=== PATIENT | female | born 1945 | race Caucasian/White ===

== ENCOUNTER 2016-09-13 16:13 | Inpatient (IN) | payer MEDICARE, OTHER ==
--- NOTE | 2016-09-13 16:54 | ER Document Report ---
ED Medical Screen (RME) - General Stated Complaint: DIFFICULTY BREATHING Time seen by provider: 16:42 Mode of Arrival: Wheelchair Information source: Patient Notes: 51-year-old female presents to ED for shortness of breath off and on for years with a history of asthma. Her O2 sat is 81 2 L O2 nasal cannula in the ER working to breathe. She states she is very dizzy. She is in her own motorized wheelchair. They she has a history of asthma and was not able to lay down at all last night to sleep due to her shortness of breath. I have greeted and performed a rapid initial assessment of this patient. A comprehensive ED assessment and evaluation of the patient, analysis of test results and completion of medical decision making process will be conducted by an additional ED providers. TRAVEL OUTSIDE OF THE [place] IN LAST 30 DAYS: No - Related Data Allergies/Adverse Reactions: hydromorphone HCl [From Dilaudid] Allergy (Severe, Verified 01/26/15 09:53) Respiratory arrest codeine [Codeine] Allergy (Intermediate, Verified 01/11/15 08:23) Hallucinations Past Medical History - Social History Family history: CAD, DM, Hyperlipidemia, Hypertension - Past Medical History Cardiac Medical History: Reports: Hx Congestive Heart Failure, Hx Coronary Artery Disease, Hx Heart Attack - cardiac stents x 2, Hx Hypercholesterolemia, Hx Hypertension, Hx Heart Murmur Pulmonary Medical History: Reports: Hx Asthma, Hx Bronchitis, Hx COPD, Hx Sleep Apnea - Bipap Denies: Hx Pneumonia, Hx Tuberculosis Neurological Medical History: Denies: Hx Cerebrovascular Accident, Hx Seizures Endocrine Medical History: Reports: Hx Diabetes Mellitus Type 2 GI Medical History: Reports: Hx Gastroesophageal Reflux Disease, Hx Ulcer Musculoskeltal Medical History: Denies Hx Arthritis - generalized Psychiatric Medical History: Reports: Hx Depression Past Surgical History: Reports: Hx Appendectomy, Hx Hysterectomy, Hx Neurologic Surgery - spinal fusion, Hx Orthopedic Surgery - carpal tunnel, polio surgery to left leg. Denies: Hx Pacemaker - Immunizations Immunizations up to date: Yes Hx Diphtheria, Pertussis, Tetanus Vaccination: Yes
[2016-09-13] MEDS ORDERED: FUROSEMIDE INJ/PF 20 MG/2 ML SDV IV ONE (18:15)
[2016-09-13] MEDS ORDERED: IPRATROPIUM/ALBUTEROL 0.5-2.5 MG/3 ML AMPUL NEB ONE (18:15)
[2016-09-13 18:31] LABS: ABSOLUTE EOSINOPHILS # (AUTO) 0.1 10^3/uL (0.0-0.6); ABSOLUTE LYMPHOCYTES (AUTO) 0.7 10^3/uL (0.5-4.7); ABSOLUTE MONOCYTES (AUTO) 0.4 10^3/uL (0.1-1.4); ABSOLUTE NEUT (AUTO) 7.1 10^3/uL (1.7-8.2); BASOPHILS % (AUTO) 0.4 % (0-2); EOSINOPHILS % (AUTO) 1.4 % (0-6); HEMATOCRIT 30.8 % (36.0-47.0); HEMOGLOBIN 9.1 g/dL (12.0-15.5); HGB HCT DIFFERENCE -3.5; LYMPHOCYTES % (AUTO) 7.9 % (13-45); MEAN CORPUSCULAR HEMOGLOBIN 24.8 pg (27.0-33.4); MEAN CORPUSCULAR HGB CONC 29.7 g/dL (32.0-36.0); MEAN CORPUSCULAR VOLUME 84 fl (80-97); MONOCYTES % (AUTO) 5.2 % (3-13); RED BLOOD COUNT 3.68 10^6/uL (3.72-5.28); RED CELL DISTRIBUTION WIDTH 18.4 % (11.5-14.0); SEGMENTED NEUTROPHILS % (AUTO) 85.1 % (42-78); WHITE BLOOD COUNT 8.4 10^3/uL (4.0-10.5)
[2016-09-13 18:36] LABS: VENOUS BLOOD BASE EXCESS 15.6 mmol/L; VENOUS BLOOD HCO3 47.1 mmol/L (20-32); VENOUS BLOOD PH 7.24 (7.30-7.42)
[2016-09-13 18:42] LABS: ALANINE AMINOTRANSFERASE 27 U/L (9-52); ALBUMIN 3.5 g/dL (3.5-5.0); ALKALINE PHOSPHATASE 108 U/L (38-126); ASPARTATE AMINO TRANSFERASE 23 U/L (14-36); BILIRUBIN,TOTAL 0.7 mg/dL (0.2-1.3); BLOOD UREA NITROGEN 23 mg/dL (7-20); CALCIUM 9.3 mg/dL (8.4-10.2); CHLORIDE 87 mmol/L (98-107); CREATININE RESULT 0.67 mg/dL (0.52-1.25); GLUCOSE 81 mg/dL (75-110); POTASSIUM 4.8 mmol/L (3.6-5.0); SODIUM 139.7 mmol/L (137-145); TOTAL PROTEIN 6.9 g/dL (6.3-8.2)
[2016-09-13 18:43] LABS: VENOUS BLOOD PCO2 113.4 mmHg (35-63)
[2016-09-13 18:46] LABS: PROTHROMBIN TIME 13.1 SEC (11.4-15.4)
[2016-09-13 18:49] LABS: ANION GAP 12 (5-19)
[2016-09-13 18:53] LABS: CARBON DIOXIDE 41 mmol/L (22-30)
[2016-09-13 18:54] LABS: TROPONIN I 0.013 ng/mL
[2016-09-13] MEDS ORDERED: NITROGLYCERIN 2% OINTMENT 1 GM PACKET TP ONE (19:03)
--- NOTE | 2016-09-13 19:41 | ER Document Report ---
ED Respiratory Problem - General Mode of Arrival: Wheelchair Information source: Patient, Friend TRAVEL OUTSIDE OF THE [place] IN LAST 30 DAYS: No - HPI Patient complains to provider of: CHF, Cough, Short of breath Onset: Other - see HPI <TAWANNA LOVELACE - Last Filed: 09/13/16 22:11> <DAVINA CABRERA - Last Filed: 09/13/16 23:34> - General Chief Complaint: Breathing Difficulty Stated Complaint: DIFFICULTY BREATHING Notes: Patient is a 71-year-old female presenting to the emergency department with complaints of cough and difficulty breathing. Patient was recently treated for pneumonia with prednisone. Patient states she finished taking the prednisone but that her cough has returned and is persistent. Patient is on 2 L of oxygen at home and states that she upped her oxygen to 2.5 L at home. Patient states that she was unable to breathe efficiently when she was in supine position. Patient states she slept in her chair last night due to not being able to lay down. Patient has a history of asthma, CHF, and stents. Patient is also wheezing. (TAWANNA LOVELACE) - Related Data Allergies/Adverse Reactions: hydromorphone HCl [From Dilaudid] Allergy (Severe, Verified 09/13/16 21:43) Respiratory arrest codeine [Codeine] Allergy (Intermediate, Verified 09/13/16 21:43) Hallucinations Home Medications: Current Home Medications Aspirin [Aspirin EC] 81 mg PO DAILY 09/13/16 [History] Atorvastatin Calcium [Lipitor 20 mg Tablet] 20 mg PO QHS 09/13/16 [History] Budesonide/Formoterol Fumarate [Symbicort HFA 160-4.5 mcg Inhaler 6 gm] 2 puff IH BID 09/13/16 [History] Diclofenac Sodium [Voltaren] 1 gm TOP QIDP PRN 09/13/16 [History] Enalapril Maleate [Vasotec 5 mg Tablet] 5 mg PO DAILY 09/13/16 [History] Fentanyl [Duragesic 25 mcg/hr Transdermal Patch] 1 each TOP Q3DAYS 09/13/16 [ History] Fexofenadine HCl [Rin] 180 mg PO DAILY 09/13/16 [History] Furosemide [Furosemide] 40 mg PO BID 09/13/16 [History] Gemfibrozil [Lopid 600 mg Tablet] 600 mg PO BID 09/13/16 [History] Glipizide [Glipizide Xl] 10 mg PO QAM 09/13/16 [History] Guaifenesin [Mucinex] 600 mg PO DAILY 09/13/16 [History] Liothyronine Sodium [Cytomel] 10 mcg PO DAILY 09/13/16 [History] Metformin HCl [Glumetza ER 500 mg Tablet] 500 mg PO QAMPM 09/13/16 [History] Metoprolol Tartrate [Lopressor 50 mg Tablet] 50 mg PO Q12 09/13/16 [History] Montelukast Sodium [Singulair 10 mg Tablet] 10 mg PO DAILY 09/13/16 [History] Nitroglycerin [Nitro-Dur 10 mg (0.4MG/Hr) Transdermal Patch] 1 each TOP DAILY [History] Nitroglycerin [Nitrostat 0.4 mg (1/150 Gr) Tabs 25/Bottle] 1 tab SL Q5MP PRN [History] Omeprazole 40 mg PO QAM 09/13/16 [History] Oxycodone HCl [Oxycodone HCl 10 MG Tablet] 10 mg PO QIDP PRN 09/13/16 [History] Phenazopyridine HCl [Azo Urinary Pain Relief] 97.5 mg PO DAILYP PRN 09/13/16 [ History] Potassium Chloride [Klor-Con 10 Meq Tablet.sa] 30 meq PO DAILY 09/13/16 [History ] Pseudoephedrine HCl [Sudafed] 30 mg PO DAILY 09/13/16 [History] Past Medical History - General Information source: Patient - Social History Smoking Status: Smoker,Current Status Unk Cigarette use (# per day): No Chew tobacco use (# tins/day): No Frequency of alcohol use: None Drug Abuse: None Family History: DM Patient has suicidal ideation: No Patient has homicidal ideation: No - Past Medical History Cardiac Medical History: Reports: Hx Congestive Heart Failure, Hx Coronary Artery Disease, Hx Heart Attack - cardiac stents x 2, Hx Hypercholesterolemia, Hx Hypertension, Hx Heart Murmur Pulmonary Medical History: Reports: Hx Asthma, Hx Bronchitis, Hx COPD, Hx Sleep Apnea - Bipap Endocrine Medical History: Reports: Hx Diabetes Mellitus Type 2 GI Medical History: Reports: Hx Gastroesophageal Reflux Disease, Hx Ulcer Musculoskeltal Medical History: Reports Hx Arthritis - generalized Psychiatric Medical History: Reports: Hx Depression Past Surgical History: Reports: Hx Appendectomy, Hx Hysterectomy, Hx Neurologic Surgery - spinal fusion, Hx Orthopedic Surgery - carpal tunnel, polio surgery to left leg - Immunizations Immunizations up to date: Yes Hx Diphtheria, Pertussis, Tetanus Vaccination: Yes <BRITNEYBRANDYNTAWANNA - Last Filed: 09/13/16 22:11> Review of Systems - Review of Systems Constitutional: No symptoms reported EENT: No symptoms reported Cardiovascular: No symptoms reported Respiratory: See HPI, Cough, Short of breath, Wheezing Gastrointestinal: No symptoms reported Genitourinary: No symptoms reported Female Genitourinary: No symptoms reported Musculoskeletal: No symptoms reported Skin: No symptoms reported Hematologic/Lymphatic: No symptoms reported Neurological/Psychological: No symptoms reported -: Yes All other systems reviewed and negative <BRITNEYBRANDYNTAWANNA - Last Filed: 09/13/16 22:11> Physical Exam - Vital signs Interpretation: Normal - General General appearance: Appears well, Alert In distress: Mild - HEENT Head: Normocephalic, Atraumatic Eyes: Normal Pupils: PERRL Mucous membranes: Normal - Respiratory Respiratory status: No respiratory distress Chest status: Nontender Breath sounds: Wheezing - wheezing at the apices bilaterally, Other - Crackles from the mid lung blunt down Chest palpation: Normal - Cardiovascular Rhythm: Regular Heart sounds: Normal auscultation Murmur: No - Abdominal Inspection: Normal Distension: No distension Bowel sounds: Normal Tenderness: Nontender Organomegaly: No organomegaly - Back Back: Normal, Nontender - Extremities General upper extremity: Normal inspection, Normal ROM, Normal strength General lower extremity: Normal inspection, Normal ROM, Normal strength - Neurological Neuro grossly intact: Yes Cognition: Normal Orientation: AAOx4 Zaki Coma Scale Eye Opening: Spontaneous Zaki Coma Scale Verbal: Oriented [place] Coma Scale Motor: Obeys Commands Zaki Coma Scale Total: 15 Speech: Normal - Psychological Associated symptoms: Normal affect, Normal mood - Skin Skin Temperature: Warm Skin Moisture: Dry <TAWANNA LOVELACE - Last Filed: 09/13/16 22:11> Course - Laboratory Result Diagrams: 09/13/16 18:00 09/13/16 18:00 - Consults Dr. Guadalupe Time consulted: 19:39 <TAWANNA LOVELACE - Last Filed: 09/13/16 22:11> - Laboratory Result Diagrams: 09/13/16 18:00 09/13/16 18:00 <DAVINA CABRERA - Last Filed: 09/13/16 23:34> - Re-evaluation Re-evalutation: 09/13/16 Patient is a 71-year-old female who comes in stating that she's having difficulty breathing and orthopnea. Patient initially denied a history of heart failure but her family states that she does indeed have a history. Patient goes to Dr. Tellez. Patient has not had any chest pain. Chest x-ray, BNP , clinical exam, and fluid overload of her bilateral lower extremities are consistent with heart failure exacerbation. Patient has been given Lasix and nitroglycerin. She'll be placed on BiPAP due to her increase of CO2. Patient has been discussed with the hospitalist service and will be admitted to the [facility]. Stable time of admission. Patient agrees with this plan. (DAVINA CABRERA) - Vital Signs Vital signs: Temp Pulse Resp BP Pulse Ox 98.1 F 70 22 H 139/96 H 91 L 09/13/16 19:29 09/13/16 19:29 09/13/16 22:01 09/13/16 22:01 09/13/16 21:00 (TAWANNA LOVELACE) (DAVINA CABRERA) - Laboratory Laboratory results interpreted by me: 09/13/16 09/13/16 09/13/16 18:00 18:00 18:00 RBC 3.68 L Hgb 9.1 L Hct 30.8 L MCH 24.8 L MCHC 29.7 L RDW 18.4 H Seg Neutrophils % 85.1 H Lymphocytes % 7.9 L VBG pH 7.24 L VBG pCO2 113.4 H* VBG HCO3 47.1 H Chloride 87 L Carbon Dioxide 41 H* BUN 23 H NT-Pro-B Natriuret Pep 09/13/16 18:00 RBC Hgb Hct MCH MCHC RDW Seg Neutrophils % Lymphocytes % VBG pH VBG pCO2 VBG HCO3 Chloride Carbon Dioxide BUN NT-Pro-B Natriuret Pep 2840 H (TAWANNA LOVELACE) (DAVINA CABRERA) - Consults Dr. Guadalupe Reason for consultation: 09/13/16 19:[address] Guadalupe, patient will be admitted. (TAWANNA LOVELACE) Critical Care Note - Critical Care Note Total time excluding time spent on procedures (mins): 35 - evaluation and management of respiratory distress with multiple re-evaluations, treatment of congestive heart failure exacerbation, coordination of admission <DAVINA CABRERA - Last Filed: 09/13/16 23:34> Discharge <TAWANNA LOVELACE - Last Filed: 09/13/16 22:11> - Discharge Admitting Provider: Luisist Aura Guadalupe Unit Admitted: IMCU <DAVINA CABRERA - Last Filed: 09/13/16 23:34> - Discharge Clinical Impression: Hypoxia CHF exacerbation Qualifiers: Congestive heart failure type: unspecified congestive heart failure type Qualified Code(s): I50.9 - Heart failure, unspecified Condition: Stable Disposition: ADMITTED INPATIENT Scribe Attestation: 09/13/16 23:34 I personally performed the services described in the documentation, reviewed and edited the documentation which was dictated to the scribe in my presence, and it accurately records my words and actions. (DAVINA CABRERA) Scribe Documentation - Scribe Written by [employer]:: Tawanna Lovelace 09/13/16 21:30 acting as scribe for :: Indra <TAWANNA LOVELACE - Last Filed: 09/13/16 22:11>
--- NOTE | 2016-09-13 20:01 | EKG REPORT ---
SEVERITY:- ABNORMAL ECG - SINUS RHYTHM RIGHT BUNDLE BRANCH BLOCK PROBABLE LEFT VENTRICULAR HYPERTROPHY : Confirmed by: Pebbles Small MD 13-Sep-2016 20:00:38
[2016-09-13] MEDS ORDERED: INSULIN LISPRO 100 UNIT/ML 3 ML VIAL SUBCUT PRN (21:12)
[2016-09-13] MEDS ORDERED: GLUCAGON,HUMAN RECOMB 1 MG INJ IM PRN (21:12)
[2016-09-13] MEDS ORDERED: DEXTROSE 40% GEL 15 GM TUBE PO PRN ×2 (21:12)
[2016-09-13] MEDS ORDERED: DEXTROSE 50%-WATER 25 GM/50 ML DISP.SYRIN IV PRN (21:12)
[2016-09-13] MEDS ORDERED: ACETAMINOPHEN 325 MG TABLET PO PRN (21:35)
[2016-09-13] MEDS ORDERED: NORMAL SALINE 1000 ML 1,000 ML IV PRN (21:38)
[2016-09-13] MEDS ORDERED: IPRATROPIUM/ALBUTEROL 0.5-2.5 MG/3 ML AMPUL NEB PRN (22:00)
--- NOTE | 2016-09-13 22:00 | PDOC H&P ---
History of Present Illness Admission Date/PCP: 09/13/16 20:53 Manny Mayers for chronic anemia Patient complains of: Difficulty breathing History of Present Illness: ALBERTO DIAL is a 71 year old morbidly obese female, with underlying diastolic congestive heart failure, asthma, 24/7 home O2 dependent COPD, 2-1/2 L per nasal cannula, with patient herself denying underlying COPD, although diagnosis previously documented in prior records, obstructive sleep apnea, on home BiPAP, uncertain settings, type II diabetes mellitus, hypothyroidism, hyperlipidemia, nonambulatory for many years due at least in part to 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 Finished a 10 day course of oral antibiotics for suspected pneumonia 2 days ago. Tapering dose of steroids. Dry cough. Denies fever; states she has "chronic chills." Denies nausea vomiting, diarrhea or dysuria, chest or abdominal pain. Lasix reduced from 2 tablets in the morning and 1 in the evening to 1 tablet twice a day, 2 weeks ago. Typically compliant with her medications. Up-to-date with both flu and pneumonia vaccinations. Has been intubated 1 in the distant past for respiratory difficulty. Treatment so far has included an inch of nitro paste, along with 20 mg of IV Lasix, along with intravenous magnesium and breathing treatments. She is breathing much more comfortably now. Patient has been discussed with emergency room physician who evaluated the patient. . Laboratory results are listed in [employer] and are reviewed. X-ray summary results are listed below, with full report(s) reviewed. . EKG reviewed. And compared to tracing from 04/26/2013 Social history/personal habits: Single. 3 children. Lives with sister. Nonambulatory for many years. No use of alcohol tobacco or illicit drugs. Allergies/adverse reactions NKDA. Home medications are reviewed from a printed list provided by family and are to be reconciled by nursing staff in [facility]. Home medications initially autopopulated into [facility] may not accurately reflect patient's true medications, dosages, and/or frequencies. Compliant with medications. Unfortunately, patient uncertain of dosage of Lasix. Order has been entered for staff to contact family, outpatient physician, and/or pharmacy to more accurately determine this information REVIEW OF SYSTEMS: Constitutional: See history and present illness. Eyes: Wears glasses. ENT: States for "some time now,", she's had mild dysphagia with occasional aspiration. States the episodes are becoming more frequent with time. States she has not notified her primary care provider of such. No hearing problems or complaints. Pulmonary: See history and present illness. Cardiovascular: No current complaints, including chest pain. Gastrointestinal: No current complaints, including nausea or vomiting. Skin: No current complaints, including rashes. Hematologic: Easy bruising. Neurologic: Chronic left lower extremity weakness due to history of polio. Musculoskeletal: Joint pain from arthritis. Psychiatric: Anxiety depression; denies suicidal or homicidal ideation. Endocrine: No current complaints, including polyuria. Genitourinary: No current complaints, including dysuria. PHYSICAL EXAMINATION: 5 feet 4 inches tall. 145.2 kg. BMI 54.9 kg/m. Blood pressure 167/57. 91% saturation on 3 L oxygen per nasal cannula. Respirations are 23 and unlabored. Temperature 98.1. Morbidly obese chronically ill-appearing female who nevertheless appears approximately her stated age. Pleasant alert cooperative, though somewhat resistant to answering some questions. No obvious distress other than somewhat anxious. sister and a female friend are present; patient approves. Skin is warm and dry. No grossly obvious evidence of rash in areas of skin examined. No subcutaneous nodules palpated. ENT: Hearing grossly normal to normal conversation. Tongue midline on protrusion pink and slightly tacky. Eyes: No scleral icterus. Pupils equal and reactive to light at 4 mm. [place] conjunctivae. Neck is supple and nontender to gentle active range of motion and palpation. Midline trachea. No palpable thyroid nodule mass enlargement or tenderness. Lymphatic: No palpable cervical or clavicular nodes. Neck and lymphatic exams limited by patient body habitus. Psychiatric: Reasonable insight into acute and chronic medical issues. Oriented to time location and why here. Lungs: Auscultation reveals clear and equal breath sounds bilaterally. No use of accessory respiratory muscles. Cardiovascular: Heart regular rate and rhythm, without gallop murmur or rub. No carotid or abdominal aortic bruits. No right ankle or pedal edema; slight dorsal pedal edema on the left. Faintly palpable dorsalis pedis pulses. Abdomen: soft, quite obese, nontender with positive bowel sounds. Unable to adequately evaluate abdomen for masses or organomegaly due to body habitus. Extremities: Feet are warm and dry. No calf tenderness to compression. No grossly obvious visual evidence of calf swelling. Gentle manipulation of lower extremities fails to reveal any obvious evidence of injury or instability to knees hips or ankles. muscle wasting of the left lower extremity; affected by prior polio. Neurologic: Moves upper extremities grossly normally. Patellar reflexes absent. Absent Babinski. Light touch is intact at feet. Dorsiflexion and plantarflexion of right foot 5 / 5 and left foot 3 over 5. Past Medical History Cardiac Medical History: Reports: Congestive Heart Failure - Diastolic, Coronary Artery Disease, Myocardial Infarction - cardiac stents x 2, Hyperlipidema, Hypertension, Heart Murmur Denies: DVT, Pulmonary Embolism Pulmonary Medical History: Reports: Asthma, Bronchitis, Chronic Obstructive Pulmonary Disease (COPD), Sleep Apnea - Bipap Denies: Pneumonia, Tuberculosis EENT Medical History: Reports: Eyes - Glasses, Throat - Occasional dysphagia with aspiration. Denies: Ears Neurological Medical History: Reports: Other - Suspected history of TIAs. Left lower extremity weakness due to history of polio. Denies: Hemorrhagic CVA, Ischemic CVA, Seizures Endocrine Medical History: Reports: Diabetes Mellitus Type 2, Hypothyroidism Denies: Diabetes Mellitus Type 1, Hyperthyroidism Renal/ Medical History: Reports: None GI Medical History: Reports: Gastroesophageal Reflux Disease Denies: Cirrhosis, Hepatitis, Peptic Ulcer Disease Musculoskeltal Medical History: Reports: Arthritis - generalized Psychiatric Medical History: Reports: Depression Hematology: Reports: Anemia, Other - Easy bruising Infectious Medical History: Denies: Hepatitis B, Hepatitis C Past Surgical History Past Surgical History: Reports: Appendectomy, Hysterectomy, Orthopedic Surgery - carpal tunnel, polio surgery to left leg Denies: Pacemaker Social History Information Source: Patient, Emergency Med Personnel, [facility] Records Lives with: Family Smoking Status: Former Smoker Frequency of Alcohol Use: None Hx Recreational Drug Use: No Hx Prescription Drug Abuse: No - Advance Directive Resuscitation Status: Full Code Surrogate healthcare decision maker:: Her sister, present at her side. Family History Family History: DM Parental Family History Reviewed: Yes Children Family History Reviewed: Yes Sibling(s) Family History Reviewed.: Yes Medication/Allergy Home Medications: Aspirin [Aspirin EC] 81 mg PO DAILY 09/13/16 Atorvastatin Calcium [Lipitor 20 mg Tablet] 20 mg PO QHS 09/13/16 Budesonide/Formoterol Fumarate [Symbicort HFA 160-4.5 mcg Inhaler 6 gm] 2 puff IH BID 09/13/16 Diclofenac Sodium [Voltaren] 1 gm TOP QIDP PRN 09/13/16 Enalapril Maleate [Vasotec 5 mg Tablet] 5 mg PO DAILY 09/13/16 Fentanyl [Duragesic 25 mcg/hr Transdermal Patch] 1 each TOP Q3DAYS 09/13/16 Fexofenadine HCl [Rin] 180 mg PO DAILY 09/13/16 Furosemide [Furosemide] 40 mg PO BID 09/13/16 Gemfibrozil [Lopid 600 mg Tablet] 600 mg PO BID 09/13/16 Glipizide [Glipizide Xl] 10 mg PO QAM 09/13/16 Guaifenesin [Mucinex] 600 mg PO DAILY 09/13/16 Liothyronine Sodium [Cytomel] 10 mcg PO DAILY 09/13/16 Metformin HCl [Glumetza ER 500 mg Tablet] 500 mg PO QAMPM 09/13/16 Metoprolol Tartrate [Lopressor 50 mg Tablet] 50 mg PO Q12 09/13/16 Montelukast Sodium [Singulair 10 mg Tablet] 10 mg PO DAILY 09/13/16 Nitroglycerin [Nitro-Dur 10 mg (0.4MG/Hr) Transdermal Patch] 1 each TOP DAILY Nitroglycerin [Nitrostat 0.4 mg (1/150 Gr) Tabs 25/Bottle] 1 tab SL Q5MP PRN Omeprazole 40 mg PO QAM 09/13/16 Oxycodone HCl [Oxycodone HCl 10 MG Tablet] 10 mg PO QIDP PRN 09/13/16 Phenazopyridine HCl [Azo Urinary Pain Relief] 97.5 mg PO DAILYP PRN 09/13/16 Potassium Chloride [Klor-Con 10 Meq Tablet.sa] 30 meq PO DAILY 09/13/16 Pseudoephedrine HCl [Sudafed] 30 mg PO DAILY 09/13/16 Allergies/Adverse Reactions: hydromorphone HCl [From Dilaudid] Allergy (Severe, Verified 09/13/16 21:43) Respiratory arrest codeine [Codeine] Allergy (Intermediate, Verified 09/13/16 21:43) Hallucinations Physical Exam Vital Signs: Temp Pulse Resp BP Pulse Ox 98.1 F 70 20 162/108 H 96 09/13/16 19:29 09/13/16 19:29 09/13/16 20:32 09/13/16 20:53 09/13/16 20:01 Results Impressions: Chest X-Ray 09/13/16 00:00 IMPRESSION: Findings consistent with either a compensated cardiac status or mild degree of congestive failure Assessment & Plan - Diagnosis (1) Acute and chronic respiratory failure with hypercapnia Is this a current diagnosis for this admission?: YesPlan: BiPAP, with follow-up blood gas. Ice chips only at present time. I strongly encouraged patient to notify staff should patient feel that respiratory status is worsening. Patient is a full code. I have strongly encouraged patient not to get out of bed without notifying staff , , to avoid a fall with injury. Knee high SCDs for DVT prophylaxis, along with subcutaneous heparin. Impression and plans were discussed with patient, and sister, both of whom concur. Time spent in evaluation and management of patient: 71 minutes. (2) Anemia Qualifiers: Anemia type: unspecified type Qualified Code(s): D64.9 - Anemia, unspecified Is this a current diagnosis for this admission?: YesPlan: Follow-up CBC with differential. No need for transfusion at present time. (3) Acute on chronic diastolic (congestive) heart failure Is this a current diagnosis for this admission?: YesPlan: Patient will be admitted under CHF protocol. Serial [troponins]. Suspect this is due to recent decrease in her Lasix. IV Lasix initially. Resume home medications as appropriate once these have been reviewed. (4) Diabetes mellitus type 2 in obese Is this a current diagnosis for this admission?: YesPlan: Ice chips only the present time. Accu-Cheks with appropriate sliding scale coverage. Will hold metformin in case IV contrast study is required.Resume home medications as appropriate once these have been reviewed. (5) Hypothyroid Qualifiers: Hypothyroidism type: unspecified Qualified Code(s): E03.9 - Hypothyroidism, unspecified Is this a current diagnosis for this admission?: YesPlan: Resume home medications as appropriate once these have been reviewed. (6) Hyperlipidemia Qualifiers: Hyperlipidemia type: unspecified Qualified Code(s): E78.5 - Hyperlipidemia, unspecified Is this a current diagnosis for this admission?: YesPlan: Resume home medications as appropriate once these have been reviewed. (7) Dysphagia Qualifiers: Dysphagia type: unspecified Qualified Code(s): R13.10 - Dysphagia, unspecified Is this a current diagnosis for this admission?: YesPlan: Occasional mild dysphagia, w/aspiration, for "some time now." Speech therapy evaluation. (8) Hypomagnesemia Is this a current diagnosis for this admission?: YesPlan: Mag supplement. - Inpatient Certification Based on my medical assessment, after consideration of the patient's comorbidities, presenting symptoms, or acuity I expect that the services needed warrant INPATIENT care.: Yes I certify that my determination is in accordance with my understanding of Medicare's requirements for reasonable and necessary INPATIENT services [42 CFR 412.3e].: Yes Medical Necessity: Significant Comorbidiites Make Outpatient Treatment Too Risky , Need Close Monitoring Due to Risk of Patient Decompensation, Need For IV Fluids, Need for Nebulizer Therapy and Monitoring of Response, Risk of Complication if Not Cared For in Hospital, Risk of Diagnosis Which Will Require Inpatient Eval/Care/Monitoring Post Hospital Care: D/C or Transfer Summary
[2016-09-13 22:16] LABS: APPEARANCE,URINE CLOUDY; BILIRUBIN,URINE NEGATIVE (NEGATIVE); GLUCOSE, URINE NEGATIVE (NEGATIVE); KETONES,URINE NEGATIVE (NEGATIVE); LEUKOCYTE ESTERASE,URINE SMALL (NEGATIVE); NITRITE,URINE NEGATIVE (NEGATIVE); PROTEIN,URINE NEGATIVE (NEGATIVE); UROBILINOGEN,URINE NEGATIVE mg/dL (<2.0)
[2016-09-13] MEDS: DEXTROSE 50%-WATER 25 GM/50 ML DISP.SYRIN IV PRN (22:39)
[2016-09-13] MEDS: FUROSEMIDE INJ/PF 40 MG/4 ML SDV IV SCH (22:40)
[2016-09-13] MEDS: ATORVASTATIN CALCIUM 20 MG TABLET PO SCH (22:40)
[2016-09-13] MEDS: HEPARIN SOD (PORCINE) 5,000 UNIT/ML 1 ML SYRINGE SUBCUT SCH (22:41)
[2016-09-13] MEDS: METOPROLOL TARTRATE 50 MG TABLET PO SCH (22:54)
[2016-09-13 23:01] LABS: VENOUS BLOOD BASE EXCESS 16.7 mmol/L; VENOUS BLOOD PH 7.28 (7.30-7.42)
[2016-09-13 23:04] LABS: VENOUS BLOOD PCO2 103.5 mmHg (35-63)
[2016-09-14] MEDS ORDERED: MAGNESIUM SULFATE/D5W 1 G/100 ML RTUPB IV ONE (01:35)
[2016-09-14 05:22] LABS: ABSOLUTE EOSINOPHILS # (AUTO) 0.1 10^3/uL (0.0-0.6); ABSOLUTE LYMPHOCYTES (AUTO) 0.6 10^3/uL (0.5-4.7); ABSOLUTE MONOCYTES (AUTO) 0.5 10^3/uL (0.1-1.4); ABSOLUTE NEUT (AUTO) 6.2 10^3/uL (1.7-8.2); BASOPHILS % (AUTO) 0.5 % (0-2); EOSINOPHILS % (AUTO) 1.3 % (0-6); LYMPHOCYTES % (AUTO) 8.2 % (13-45); MEAN CORPUSCULAR HEMOGLOBIN 25.5 pg (27.0-33.4); MEAN CORPUSCULAR HGB CONC 31.1 g/dL (32.0-36.0); MEAN CORPUSCULAR VOLUME 82 fl (80-97); MONOCYTES % (AUTO) 6.8 % (3-13); RED BLOOD COUNT 3.54 10^6/uL (3.72-5.28); RED CELL DISTRIBUTION WIDTH 18.6 % (11.5-14.0); SEGMENTED NEUTROPHILS % (AUTO) 83.2 % (42-78); WHITE BLOOD COUNT 7.4 10^3/uL (4.0-10.5)
[2016-09-14 05:23] LABS: VENOUS BLOOD BASE EXCESS 19.7 mmol/L; VENOUS BLOOD HCO3 49.8 mmol/L (20-32); VENOUS BLOOD PH 7.31 (7.30-7.42)
[2016-09-14 05:24] LABS: VENOUS BLOOD PCO2 101.8 mmHg (35-63)
[2016-09-14] MEDS: OXYCODONE HCL IR 5 MG TABLET PO PRN (05:36)
[2016-09-14] MEDS: HEPARIN SOD (PORCINE) 5,000 UNIT/ML 1 ML SYRINGE SUBCUT SCH ×3 (05:37→23:39)
[2016-09-14] MEDS: DEXTROSE 50%-WATER 25 GM/50 ML DISP.SYRIN IV PRN ×2 (05:44→11:30)
[2016-09-14 05:49] LABS: BLOOD UREA NITROGEN 21 mg/dL (7-20); CALCIUM 8.9 mg/dL (8.4-10.2); CHLORIDE 87 mmol/L (98-107); CREATININE RESULT 0.63 mg/dL (0.52-1.25); GLUCOSE 55 mg/dL (75-110); SODIUM 139.9 mmol/L (137-145)
[2016-09-14 06:34] LABS: POTASSIUM 3.4 mmol/L (3.6-5.0)
[2016-09-14 06:35] LABS: ANION GAP 14 (5-19); CARBON DIOXIDE 39 mmol/L (22-30)
[2016-09-14] MEDS: DEXTROSE 5%-NORMAL SALINE 1,000 ML IV PRN ×2 (06:47→22:56)
[2016-09-14] MEDS: FUROSEMIDE INJ/PF 40 MG/4 ML SDV IV SCH ×2 (09:22→23:52)
[2016-09-14] MEDS: METOPROLOL TARTRATE 50 MG TABLET PO SCH ×2 (09:23→23:38)
[2016-09-14] MEDS: DOCUSATE SODIUM 100 MG CAPSULE PO SCH (09:24)
[2016-09-14] MEDS: ASPIRIN 81 MG TABLET, ENT COATED PO SCH (09:24)
[2016-09-14] MEDS: POTASSIUM CHLORIDE 10 MEQ TABLET.SA PO SCH (09:24)
[2016-09-14] MEDS: MONTELUKAST SODIUM 10 MG TABLET PO SCH (09:24)
[2016-09-14] MEDS: LORATADINE 10 MG TABLET PO SCH (09:24)
[2016-09-14] MEDS ORDERED: POTASSIUM CHLORIDE 10 MEQ TABLET.SA PO SCH (10:00)
[2016-09-14] MEDS ORDERED: FENTANYL 25 MCG/HR PATCH.TD72 TOP SCH (10:00)
[2016-09-14] MEDS ORDERED: (PENDING PHARMACY ID) (Liothyronine Sodium [Cytomel] 10 MCG) PO SCH (10:00)
[2016-09-14 11:12] LABS: VENOUS BLOOD BASE EXCESS 20.9 mmol/L; VENOUS BLOOD HCO3 50.8 mmol/L (20-32); VENOUS BLOOD PH 7.31 (7.30-7.42)
[2016-09-14 11:15] LABS: VENOUS BLOOD PCO2 104.4 mmHg (35-63)
[2016-09-14] MEDS: ENALAPRIL MALEATE 5 MG TABLET PO SCH (11:30)
[2016-09-14] MEDS: BUDESONIDE/FORMOTEROL 160-4.5 MCG 60 PUFF/6 GM MDI IH SCH ×2 (11:31→18:02)
[2016-09-14] MEDS ORDERED: NITROGLYCERIN 10 MG (0.4 MG/HR) PATCH.TD24 TOP SCH (17:15)
[2016-09-14] MEDS ORDERED: MAGNESIUM SULFATE/D5W 100 ML IV ONE (17:18)
--- NOTE | 2016-09-14 17:27 | PDOC PROGRESS REPORT ---
Subjective Progress Note for:: 09/14/16 Subjective:: The patient was seen earlier today on rounds. The patient states that she feels much more improved in comparison to when she came in. The patient states that she is no longer dyspneic and her only concern at this time is that she feels overall too weak to get to the bedside commode and asked for a urinary catheter. The patient denies any nausea, vomiting, diarrhea, dizziness, chest pain, heart palpitations, fevers, or chills. The patient has remained afebrile. Blood pressures have been in a good range. When prompted the patient voices no other concerns at this time. Review of systems: The rest of the review of systems is negative. Physical Exam Vital Signs: Temp Pulse Resp BP Pulse Ox 98.2 F 68 18 140/52 H 95 09/14/16 15:15 09/14/16 15:45 09/14/16 15:45 09/14/16 15:15 09/14/16 15:45 Intake & Output 09/12/16 09/13/16 09/14/16 23:59 23:59 23:59 Intake Total 375 Output Total 1300 Balance -925 Weight 123.9 kg General appearance: PRESENT: no acute distress, disheveled, morbidly obese Head exam: PRESENT: atraumatic, normocephalic Eye exam: PRESENT: conjunctiva pink, EOMI, PERRLA. ABSENT: scleral icterus Ear exam: PRESENT: normal external ear exam Mouth exam: PRESENT: moist, tongue midline Neck exam: ABSENT: carotid bruit, JVD, lymphadenopathy, thyromegaly Respiratory exam: PRESENT: symmetrical, wheezes. ABSENT: rales, rhonchi, tachypnea, unlabored Cardiovascular exam: PRESENT: RRR. ABSENT: diastolic murmur, rubs, systolic murmur Pulses: PRESENT: normal dorsalis pedis pul Vascular exam: PRESENT: normal capillary refill GI/Abdominal exam: PRESENT: normal bowel sounds, soft. ABSENT: distended, guarding, mass, organolmegaly, rebound, tenderness Rectal exam: PRESENT: deferred Extremities exam: PRESENT: full ROM. ABSENT: calf tenderness, clubbing, pedal edema Neurological exam: PRESENT: alert, awake, oriented to person, oriented to place , oriented to time, oriented to situation, CN II-XII grossly intact. ABSENT: motor sensory deficit Psychiatric exam: PRESENT: appropriate affect, normal mood. ABSENT: homicidal ideation, suicidal ideation Skin exam: PRESENT: dry, intact, warm. ABSENT: cyanosis, rash Results Laboratory Results: 09/14/16 05:07 09/14/16 05:07 09/13/16 09/13/16 09/14/16 21:56 22:45 00:40 WBC RBC Hgb Hct MCV MCH MCHC RDW Plt Count Seg Neutrophils % Lymphocytes % Monocytes % Eosinophils % Basophils % Absolute Neutrophils Absolute Lymphocytes Absolute Monocytes Absolute Eosinophils Absolute Basophils VBG pH 7.28 L VBG pCO2 103.5 H* VBG HCO3 47.0 H VBG Base Excess 16.7 Sodium Potassium Chloride Carbon Dioxide Anion Gap BUN Creatinine Est GFR ( Amer) Est GFR (Non-Af Amer) Glucose Calcium Magnesium 1.5 L Urine Color YELLOW Urine Appearance CLOUDY Urine pH 5.0 Ur Specific [place] 1.010 Urine Protein NEGATIVE Urine Glucose (UA) NEGATIVE Urine Ketones NEGATIVE Urine Blood NEGATIVE Urine Nitrite NEGATIVE Ur Leukocyte Esterase SMALL H Urine WBC (Auto) 3 Urine RBC (Auto) 6 09/14/16 09/14/16 09/14/16 05:07 05:07 05:07 WBC 7.4 RBC 3.54 L Hgb 9.0 L Hct 29.0 L MCV 82 MCH 25.5 L MCHC 31.1 L RDW 18.6 H Plt Count 343 Seg Neutrophils % 83.2 H Lymphocytes % 8.2 L Monocytes % 6.8 Eosinophils % 1.3 Basophils % 0.5 Absolute Neutrophils 6.2 Absolute Lymphocytes 0.6 Absolute Monocytes 0.5 Absolute Eosinophils 0.1 Absolute Basophils 0.0 VBG pH 7.31 VBG pCO2 101.8 H* VBG HCO3 49.8 H VBG Base Excess 19.7 Sodium 139.9 Potassium 3.4 L D Chloride 87 L Carbon Dioxide 39 H Anion Gap 14 BUN 21 H Creatinine 0.63 Est GFR ( Amer) > 60 Est GFR (Non-Af Amer) > 60 Glucose 55 L Calcium 8.9 Magnesium Urine Color Urine Appearance Urine pH Ur Specific [place] Urine Protein Urine Glucose (UA) Urine Ketones Urine Blood Urine Nitrite Ur Leukocyte Esterase Urine WBC (Auto) Urine RBC (Auto) 09/14/16 11:04 WBC RBC Hgb Hct MCV MCH MCHC RDW Plt Count Seg Neutrophils % Lymphocytes % Monocytes % Eosinophils % Basophils % Absolute Neutrophils Absolute Lymphocytes Absolute Monocytes Absolute Eosinophils Absolute Basophils VBG pH 7.31 VBG pCO2 104.4 H* VBG HCO3 50.8 H VBG Base Excess 20.9 Sodium Potassium Chloride Carbon Dioxide Anion Gap BUN Creatinine Est GFR ( Amer) Est GFR (Non-Af Amer) Glucose Calcium Magnesium Urine Color Urine Appearance Urine pH Ur Specific [place] Urine Protein Urine Glucose (UA) Urine Ketones Urine Blood Urine Nitrite Ur Leukocyte Esterase Urine WBC (Auto) Urine RBC (Auto) 09/14/16 09/14/16 00:40 05:07 Troponin I 0.017 0.019 Impressions: Chest X-Ray 09/13/16 00:00 IMPRESSION: Findings consistent with either a compensated cardiac status or mild degree of congestive failure Assessment & Plan - Diagnosis (1) Acute and chronic respiratory failure with hypercapnia Is this a current diagnosis for this admission?: YesPlan: Will increase settings on BiPAP. Most likely this is a component of obesity hypoventilation syndrome. The patient appears to have a history of hypercapnia looking back to 2012 (2) CHF exacerbation Qualifiers: Congestive heart failure type: diastolic Qualified Code(s): I50.33 - Acute on chronic diastolic (congestive) heart failure Is this a current diagnosis for this admission?: YesPlan: Continue to diurese will repeat chemistries in the a.m. and follow. Last echocardiogram on 07/22/2016 revealed a normal EF. (3) Hypomagnesemia Is this a current diagnosis for this admission?: YesPlan: Mild will supplement (4) Anemia Qualifiers: Anemia type: unspecified type Qualified Code(s): D64.9 - Anemia, unspecified Is this a current diagnosis for this admission?: YesPlan: Will obtain iron studies (5) Diabetes mellitus type 2 in obese Is this a current diagnosis for this admission?: Yes (6) Hyperlipidemia Qualifiers: Hyperlipidemia type: unspecified Qualified Code(s): E78.5 - Hyperlipidemia, unspecified Is this a current diagnosis for this admission?: Yes (7) Hypothyroid Qualifiers: Hypothyroidism type: unspecified Qualified Code(s): E03.9 - Hypothyroidism, unspecified Is this a current diagnosis for this admission?: Yes (8) Morbid obesity with BMI of 50.0-59.9, adult Is this a current diagnosis for this admission?: Yes - Time Time Spent with patient: on this visit including assessment, plan, physical examination, family meeting, and patient education is 35 minutes. Time Spent with patient: 35 or more minutes Medications reviewed and adjusted accordingly: Yes Anticipated discharge: Home Within: within 72 hours Disposition: The patient is a full code. Pending patient's symptomatology and diagnostic findings will reevaluate in the a.m.
[2016-09-14] MEDS: METHYLPREDNISOLONE INJ 125 MG/2 ML SDV IV SCH (23:34)
[2016-09-14] MEDS: ATORVASTATIN CALCIUM 20 MG TABLET PO SCH (23:38)
[2016-09-15 05:26] LABS: BLOOD UREA NITROGEN 12 mg/dL (7-20); CALCIUM 8.9 mg/dL (8.4-10.2); CHLORIDE 89 mmol/L (98-107); CREATININE RESULT 0.56 mg/dL (0.52-1.25); GLUCOSE 205 mg/dL (75-110); MAGNESIUM 1.9 mg/dL (1.6-2.3); POTASSIUM 3.8 mmol/L (3.6-5.0); SODIUM 142.8 mmol/L (137-145)
[2016-09-15 05:32] LABS: ANION GAP 15 (5-19); CARBON DIOXIDE 39 mmol/L (22-30)
[2016-09-15 05:46] LABS: HEMOGLOBIN 9.6 g/dL (12.0-15.5); HGB HCT DIFFERENCE -3.2; MEAN CORPUSCULAR HEMOGLOBIN 24.8 pg (27.0-33.4); MEAN CORPUSCULAR HGB CONC 29.9 g/dL (32.0-36.0); MEAN CORPUSCULAR VOLUME 83 fl (80-97); RED BLOOD COUNT 3.86 10^6/uL (3.72-5.28); RED CELL DISTRIBUTION WIDTH 18.6 % (11.5-14.0); WHITE BLOOD COUNT 6.9 10^3/uL (4.0-10.5)
[2016-09-15 05:47] LABS: VENOUS BLOOD BASE EXCESS 14.7 mmol/L; VENOUS BLOOD HCO3 42.5 mmol/L (20-32); VENOUS BLOOD PH 7.38 (7.30-7.42)
[2016-09-15 05:50] LABS: VENOUS BLOOD PCO2 73.1 mmHg (35-63)
[2016-09-15] MEDS: METHYLPREDNISOLONE INJ 125 MG/2 ML SDV IV SCH ×2 (06:44→13:45)
[2016-09-15] MEDS: OXYCODONE HCL IR 5 MG TABLET PO PRN (06:45)
[2016-09-15] MEDS: HEPARIN SOD (PORCINE) 5,000 UNIT/ML 1 ML SYRINGE SUBCUT SCH ×2 (06:49→13:30)
[2016-09-15] MEDS ORDERED: INSULIN LISPRO 100 UNIT/ML 3 ML VIAL SUBCUT PRN (07:52)
[2016-09-15] MEDS ORDERED: LANSOPRAZOLE 30 MG TAB.RAP.DR PO SCH (08:00)
[2016-09-15] MEDS: ENALAPRIL MALEATE 5 MG TABLET PO SCH (11:14)
[2016-09-15] MEDS: MONTELUKAST SODIUM 10 MG TABLET PO SCH (11:15)
[2016-09-15] MEDS: DOCUSATE SODIUM 100 MG CAPSULE PO SCH (11:15)
[2016-09-15] MEDS: METOPROLOL TARTRATE 50 MG TABLET PO SCH (11:15)
[2016-09-15] MEDS: ASPIRIN 81 MG TABLET, ENT COATED PO SCH (11:16)
[2016-09-15] MEDS: POTASSIUM CHLORIDE 10 MEQ TABLET.SA PO SCH (11:16)
[2016-09-15] MEDS: LORATADINE 10 MG TABLET PO SCH (11:16)
[2016-09-15] MEDS: BUDESONIDE/FORMOTEROL 160-4.5 MCG 60 PUFF/6 GM MDI IH SCH (11:17)
[2016-09-15 14:37] VITALS: BP 162/108
--- NOTE | 2016-09-15 17:02 | PDOC DISCHARGE SUMMARY ---
General - Admit/Disc Date/PCP Admission Date/Primary Care Provider: 09/13/16 21:[address] Bryant. Outpatient syrup machine laborer Dr. Tellez. Outpatient telephone station repairer: Dr. Mayers Discharge Date: 09/15/16 - Discharge Diagnosis (1) Acute and chronic respiratory failure with hypercapnia Is this a current diagnosis for this admission?: Yes (2) Acute diastolic (congestive) heart failure Is this a current diagnosis for this admission?: Yes (3) Hypomagnesemia Is this a current diagnosis for this admission?: Yes (4) Anemia Is this a current diagnosis for this admission?: Yes (5) Diabetes mellitus type 2 in obese Is this a current diagnosis for this admission?: Yes (6) Hyperlipidemia Is this a current diagnosis for this admission?: Yes (7) Hypothyroid Is this a current diagnosis for this admission?: Yes (8) Morbid obesity with BMI of 50.0-59.9, adult Is this a current diagnosis for this admission?: Yes - Additional Information Resuscitation Status: Do Not Resuscitate - DNR/DNI Discharge Diet: As Tolerated, Cardiac, Diabetic Discharge Activity: Activity As Tolerated Home Medications: Aspirin [Aspirin EC] 81 mg PO DAILY 09/13/16 Atorvastatin Calcium [Lipitor 20 mg Tablet] 20 mg PO QHS 09/13/16 Budesonide/Formoterol Fumarate [Symbicort HFA 160-4.5 mcg Inhaler 6 gm] 2 puff IH BID 09/13/16 Diclofenac Sodium [Voltaren] 1 gm TOP QIDP PRN 09/13/16 Enalapril Maleate [Vasotec 5 mg Tablet] 5 mg PO DAILY 09/13/16 Fentanyl [Duragesic 25 mcg/hr Transdermal Patch] 1 each TOP Q3DAYS 09/13/16 Fexofenadine HCl [Rin] 180 mg PO DAILY 09/13/16 Furosemide 40 mg PO BID 09/13/16 Gemfibrozil [Lopid 600 mg Tablet] 600 mg PO BID 09/13/16 Glipizide [Glipizide Xl] 10 mg PO QAM 09/13/16 Liothyronine Sodium [Cytomel] 10 mcg PO DAILY 09/13/16 Metformin HCl [Glumetza ER 500 mg Tablet] 500 mg PO QAMPM 09/13/16 Metoprolol Tartrate [Lopressor 50 mg Tablet] 50 mg PO Q12 09/13/16 Montelukast Sodium [Singulair 10 mg Tablet] 10 mg PO DAILY 09/13/16 Nitroglycerin [Nitro-Dur 10 mg (0.4MG/Hr) Transdermal Patch] 1 each TOP DAILY Nitroglycerin [Nitrostat 0.4 mg (1/150 Gr) Tabs 25/Bottle] 1 tab SL Q5MP PRN Omeprazole 40 mg PO QAM 09/13/16 Oxycodone HCl [Oxycodone HCl 10 MG Tablet] 10 mg PO QIDP PRN 09/13/16 Phenazopyridine HCl [Azo Urinary Pain Relief] 97.5 mg PO DAILYP PRN 09/13/16 Potassium Chloride [Klor-Con 10 Meq Tablet.sa] 30 meq PO DAILY 09/13/16 Levofloxacin [Levaquin 500 mg Tablet] 500 mg PO DAILY #5 tablet 09/15/16 Prednisone [Deltasone 10 mg Tablet] 10 mg PO ASDIR PRN #21 tablet 09/15/16 History of Present Illness Patient complains of: Difficulty breathing History of Present Illness: ALBERTO DIAL is a 71 year old morbidly obese female, with underlying diastolic congestive heart failure, asthma, / home O2 dependent COPD, 2-1/2 L per nasal cannula, with patient herself denying underlying COPD, although diagnosis previously documented in prior records, obstructive sleep apnea, on home BiPAP, uncertain settings, type II diabetes mellitus, hypothyroidism, hyperlipidemia, nonambulatory for many years due at least in part to 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 Finished a 10 day course of oral antibiotics for suspected pneumonia 2 days ago. Tapering dose of steroids. Dry cough. Denies fever; states she has "chronic chills." Denies nausea vomiting, diarrhea or dysuria, chest or abdominal pain. Lasix reduced from 2 tablets in the morning and 1 in the evening to 1 tablet twice a day, 2 weeks ago. Typically compliant with her medications. Has been intubated 1 in the distant past for respiratory difficulty. Hospital Course Hospital Course: The patient was admitted to [facility]. The patient was placed on scheduled nebs as well as PRN nebs, steroids, and supplemental oxygen. The patient's oxygen, steroids, and nebs were titrated and weaned. The patient is back to baseline and able to complete sentences. The patient was found to be profoundly hypercapnic which appears to be a chronic issue. The patient is supposed to be wearing a home BiPAP however the patient is been fully compliant with this. Patient's symptoms did resolve once the patient was placed on a BiPAP. The patient's PCO2 which was greater than 100 did come down to the 70 range which appears to be the patient's baseline. The patient was diuresed with IV diuretic and continued on home medications including aspirin, beta dimitrios, ARB. The patient had significant improvement in symptoms. Echocardiogram during previous admission revealed an ejection fraction of preservation. The patient received education and was instructed on dietary habits as well as daily weights. The patient will follow-up in outpatient basis. During the patient's stay the patient stated that she would like to be a DO NOT RESUSCITATE DO NOT INTUBATE. Portable DO NOT RESUSCITATE was provided. Physical Exam Vital Signs: Temp Pulse Resp BP Pulse Ox 98.5 F 67 22 H 162/108 H 100 09/15/16 14:33 09/15/16 14:33 09/15/16 14:33 09/15/16 14:33 09/15/16 14:33 Intake & Output 09/13/16 09/14/16 09/15/16 23:59 23:59 23:59 Intake Total 1196 710 Output Total 1300 1600 Balance -104 -890 Weight 123.9 kg 123.9 kg General appearance: PRESENT: no acute distress, disheveled, morbidly obese Head exam: PRESENT: atraumatic, normocephalic Eye exam: PRESENT: conjunctiva pink, EOMI, PERRLA. ABSENT: scleral icterus Ear exam: PRESENT: normal external ear exam Mouth exam: PRESENT: moist, tongue midline Neck exam: ABSENT: carotid bruit, JVD, lymphadenopathy, thyromegaly Respiratory exam: PRESENT: symmetrical. ABSENT: rales, rhonchi, tachypnea, unlabored, no wheezes Cardiovascular exam: PRESENT: RRR. ABSENT: diastolic murmur, rubs, systolic murmur Pulses: PRESENT: normal dorsalis pedis pul Vascular exam: PRESENT: normal capillary refill GI/Abdominal exam: PRESENT: normal bowel sounds, soft. ABSENT: distended, guarding, mass, organolmegaly, rebound, tenderness Rectal exam: PRESENT: deferred Extremities exam: PRESENT: full ROM. ABSENT: calf tenderness, clubbing, pedal edema Neurological exam: PRESENT: alert, awake, oriented to person, oriented to place , oriented to time, oriented to situation, CN II-XII grossly intact. ABSENT: motor sensory deficit Psychiatric exam: PRESENT: appropriate affect, normal mood. ABSENT: homicidal ideation, suicidal ideation Skin exam: PRESENT: dry, intact, warm. ABSENT: cyanosis, rash Results Laboratory Results: 09/15/16 05:27 09/15/16 04:59 09/14/16 09/14/16 09/15/16 05:07 05:07 04:59 WBC RBC Hgb Hct MCV MCH MCHC RDW Plt Count Retic Count (auto) 3.56 H Absolute Retic 0.125 H VBG pH VBG pCO2 VBG HCO3 VBG Base Excess Sodium 142.8 Potassium 3.8 Chloride 89 L Carbon Dioxide 39 H Anion Gap 15 BUN 12 Creatinine 0.56 Est GFR ( Amer) > 60 Est GFR (Non-Af Amer) > 60 Glucose 205 H Calcium 8.9 Magnesium 1.9 Iron 39 TIBC 381 % Saturation 10 Ferritin 207.00 Vitamin B12 686.0 Folate 8.30 Labs- Last Values WBC 6.9 10^3/uL (4.0-10.5) 09/15/16 05:27 RBC 3.86 10^6/uL (3.72-5.28) 09/15/16 05:27 Hgb 9.6 g/dL (12.0-15.5) L 09/15/16 05:27 Hct 32.0 % (36.0-47.0) L 09/15/16 05:27 MCV 83 fl (80-97) 09/15/16 05:27 MCH 24.8 pg (27.0-33.4) L 09/15/16 05:27 MCHC 29.9 g/dL (32.0-36.0) L 09/15/16 05:27 RDW 18.6 % (11.5-14.0) H 09/15/16 05:27 Plt Count 393 10^3/uL (150-450) 09/15/16 05:27 Seg Neutrophils % 83.2 % (42-78) H 09/14/16 05:07 Lymphocytes % 8.2 % (13-45) L 09/14/16 05:07 Monocytes % 6.8 % (3-13) 09/14/16 05:07 Eosinophils % 1.3 % (0-6) 09/14/16 05:07 Basophils % 0.5 % (0-2) 09/14/16 05:07 Absolute Neutrophils 6.2 10^3/uL (1.7-8.2) 09/14/16 05:07 Absolute Lymphocytes 0.6 10^3/uL (0.5-4.7) 09/14/16 05:07 Absolute Monocytes 0.5 10^3/uL (0.1-1.4) 09/14/16 05:07 Absolute Eosinophils 0.1 10^3/uL (0.0-0.6) 09/14/16 05:07 Absolute Basophils 0.0 10^3/uL (0.0-0.2) 09/14/16 05:07 Retic Count (auto) 3.56 % (0.66-2.85) H 09/14/16 05:07 Absolute Retic 0.125 10^6/uL (0.028-0.122) H 09/14/16 05:07 PT 13.1 SEC (11.4-15.4) 09/13/16 18:00 INR 0.97 09/13/16 18:00 VBG pH 7.38 (7.30-7.42) 09/15/16 05:27 VBG pCO2 73.1 mmHg (35-63) H* 09/15/16 05:27 VBG HCO3 42.5 mmol/L (20-32) H 09/15/16 05:27 VBG Base Excess 14.7 mmol/L 09/15/16 05:27 Sodium 142.8 mmol/L (137-145) 09/15/16 04:59 Potassium 3.8 mmol/L (3.6-5.0) 09/15/16 04:59 Chloride 89 mmol/L (98-107) L 09/15/16 04:59 Carbon Dioxide 39 mmol/L (22-30) H 09/15/16 04:59 Anion Gap 15 (5-19) 09/15/16 04:59 BUN 12 mg/dL (7-20) 09/15/16 04:59 Creatinine 0.56 mg/dL (0.52-1.25) 09/15/16 04:59 Est GFR ( Amer) > 60 (>60) 09/15/16 04:59 Est GFR (Non-Af Amer) > 60 (>60) 09/15/16 04:59 Glucose 205 mg/dL (75-110) H 09/15/16 04:59 POC Glucose 318 mg/dL (70-110) H 09/15/16 12:38 Lactic Acid 0.8 mmol/L (0.7-2.1) 09/13/16 18:00 Calcium 8.9 mg/dL (8.4-10.2) 09/15/16 04:59 Magnesium 1.9 mg/dL (1.6-2.3) 09/15/16 04:59 Iron 39 ug/dL (37-170) 09/14/16 05:07 TIBC 381 ug/dL (250-450) 09/14/16 05:07 % Saturation 10 % 09/14/16 05:07 Ferritin 207.00 ng/mL (11.1-264.0) 09/14/16 05:07 Total Bilirubin 0.7 mg/dL (0.2-1.3) 09/13/16 18:00 Direct Bilirubin 0.0 mg/dL (0.0-0.3) 09/13/16 18:00 AST 23 U/L (14-36) 09/13/16 18:00 ALT 27 U/L (9-52) 09/13/16 18:00 Alkaline Phosphatase 108 U/L (38-126) 09/13/16 18:00 Troponin I 0.019 ng/mL 09/14/16 05:07 NT-Pro-B Natriuret Pep 2840 pg/mL (5-900) H 09/13/16 18:00 Total Protein 6.9 g/dL (6.3-8.2) 09/13/16 18:00 Albumin 3.5 g/dL (3.5-5.0) 09/13/16 18:00 Vitamin B12 686.0 pg/mL (239-931) 09/14/16 05:07 Folate 8.30 ng/mL (>2.76) 09/14/16 05:07 Urine Color YELLOW 09/13/16 21:56 Urine Appearance CLOUDY 09/13/16 21:56 Urine pH 5.0 (5.0-9.0) 09/13/16 21:56 Ur Specific [place] 1.010 09/13/16 21:56 Urine Protein NEGATIVE mg/dL (NEGATIVE) 09/13/16 21:56 Urine Glucose (UA) NEGATIVE mg/dL (NEGATIVE) 09/13/16 21:56 Urine Ketones NEGATIVE mg/dL (NEGATIVE) 09/13/16 21:56 Urine Blood NEGATIVE (NEGATIVE) 09/13/16 21:56 Urine Nitrite NEGATIVE (NEGATIVE) 09/13/16 21:56 Urine Bilirubin NEGATIVE (NEGATIVE) 09/13/16 21:56 Urine Urobilinogen NEGATIVE mg/dL (<2.0) 09/13/16 21:56 Ur Leukocyte Esterase SMALL (NEGATIVE) H 09/13/16 21:56 Urine WBC (Auto) 3 /HPF 09/13/16 21:56 Urine RBC (Auto) 6 /HPF 09/13/16 21:56 U Hyaline Cast (Auto) 2 /LPF 09/13/16 21:56 Urine Bacteria (Auto) TRACE /HPF 09/13/16 21:56 Squamous Epi Cells Auto 8 /HPF 09/13/16 21:56 Urine Mucus (Auto) RARE /LPF 09/13/16 21:56 Urine Ascorbic Acid NEGATIVE (NEGATIVE) 09/13/16 21:56 Impressions: Chest X-Ray 09/13/16 00:00 IMPRESSION: Findings consistent with either a compensated cardiac status or mild degree of congestive failure Qualifiers PATEINT BEING DISCHARGED WITH ANY OF THE FOLLOWING DIAGNOSIS?: No Plan Discharge Plan: The patient will follow primary care provider within one week for hospital follow-up. Time Spent: Greater than 30 Minutes
== END 2016-09-15 15:45 | disposition home or self-care (01) | DRG 291 ==
LOC: ER 16:13 → EH 20:53 → UNDOADMIN 20:53 → EH 21:28 → 3W 09-14 02:16
PROVIDERS: ADMIT Family Medicine; ATTEND Family Medicine
PROC: 5A09457 Assistance with Respiratory Ventilation, 24-96 Consecutive Hours, Continuous Positive Airway Pressure (ICD-10-PCS; principal; 2016-09-13)
DX: I50.33 Acute on chronic diastolic (congestive) heart failure (principal); J96.22 Acute and chronic respiratory failure with hypercapnia; Z68.43 Body mass index [BMI] 50.0-59.9, adult; Z68.42 Body mass index [BMI] 45.0-49.9, adult; E83.42 Hypomagnesemia; D64.9 Anemia, unspecified; E11.9 Type 2 diabetes mellitus without complications; E66.01 Morbid (severe) obesity due to excess calories; E78.5 Hyperlipidemia, unspecified; E03.9 Hypothyroidism, unspecified; J45.909 Unspecified asthma, uncomplicated; J44.9 Chronic obstructive pulmonary disease, unspecified; G47.33 Obstructive sleep apnea (adult) (pediatric); M19.90 Unspecified osteoarthritis, unspecified site; F41.8 Other specified anxiety disorders; I11.0 Hypertensive heart disease with heart failure; I25.10 Atherosclerotic heart disease of native coronary artery without angina pectoris; I25.2 Old myocardial infarction; K21.9 Gastro-esophageal reflux disease without esophagitis; Z66 Do not resuscitate; Z88.6 Allergy status to analgesic agent; Z79.82 Long term (current) use of aspirin; Z79.899 Other long term (current) drug therapy; Z99.81 Dependence on supplemental oxygen; Z95.5 Presence of coronary angioplasty implant and graft; Z86.12 Personal history of poliomyelitis; Z90.710 Acquired absence of both cervix and uterus; Z87.891 Personal history of nicotine dependence; Z83.3 Family history of diabetes mellitus
CPT/HCPCS: 36415; 71010; 80048; 80053; 81001; 82607; 82728; 82746; 82803; 82962; 83540; 83550; 83605; 83735; 83880; 84466; 84484; 85025; 85027; 85045; 85610; 87040; 87086; 87088; 87186; 93005; 93010; 94640; 94660; 96374; 99291; J1644; J1815; J1940; J2930; J3475; J3490; J7030; J7620

== ENCOUNTER → 2017-02-14 | Outpatient (CLI) | payer MEDICARE, OTHER ==
--- NOTE | 2017-02-14 15:03 | RADIOLOGY REPORT (SQ) ---
EXAM DESCRIPTION: CHEST PA/LAT COMPLETED DATE/TIME: 02/14/2017 2:49 pm REASON FOR STUDY: SOB (R06.02) COMPARISON: 09/13/2016 EXAM PARAMETERS: NUMBER OF VIEWS: two views TECHNIQUE: Digital Frontal and Lateral radiographic views of the chest acquired. RADIATION DOSE: NA LIMITATIONS: none FINDINGS: LUNGS AND PLEURA: No opacities, masses or pneumothorax. No pleural effusion. MEDIASTINUM AND HILAR STRUCTURES: No masses or contour abnormalities. HEART AND VASCULAR STRUCTURES: Heart normal size. No evidence for failure. BONES: There is thoracic scoliosis with concavity toward the right. HARDWARE: None in the chest. OTHER: No other significant finding. IMPRESSION: NO SIGNIFICANT RADIOGRAPHIC FINDING IN THE CHEST. TECHNICAL DOCUMENTATION: JOB ID: [id number] [employer]- All Rights Reserved
--- NOTE | 2017-02-14 15:04 | RADIOLOGY REPORT (SQ) ---
EXAM DESCRIPTION: KNEE LEFT 3 VIEWS COMPLETED DATE/TIME: 02/14/2017 2:49 pm REASON FOR STUDY: FALL, INITIAL ENC (W19.XXXA) S99.911A UNSPECIFIED INJURY OF RIGHT ANKLE, INITIAL ENCOUNTE S99.912A UNSPECIFIED INJURY OF LEFT ANKLE, INITIAL ENCOUNTER W19.XXXA UNSPECIFIED FALL, IN ITIAL ENCOUNTER COMPARISON: None. NUMBER OF VIEWS: Two views. TECHNIQUE: AP and lateral radiographic images acquired of the left knee. LIMITATIONS: None. FINDINGS: MINERALIZATION: There is diffuse osteopenia. BONES: There are degenerative changes joint space narrowing in the patellofemoral compartment and med ial compartment. JOINT: No effusion. SOFT TISSUES: No soft tissue swelling. No radio-opaque foreign body. OTHER: No other significant finding. IMPRESSION: Osteoarthritic changes. Osteopenia. No acute fracture. TECHNICAL DOCUMENTATION: JOB ID: [id number] [employer]- All Rights Reserved
--- NOTE | 2017-02-14 15:06 | RADIOLOGY REPORT (SQ) ---
EXAM DESCRIPTION: ANKLE BILATERAL 3 VIEWS MIN COMPLETED DATE/TIME: 02/14/2017 2:49 pm REASON FOR STUDY: BILAT ANKLE INJURY (S99.911A, S99.912A) S99.911A UNSPECIFIED INJURY OF RIGHT ANKL E, INITIAL ENCOUNTE S99.912A UNSPECIFIED INJURY OF LEFT ANKLE, INITIAL ENCOUNTER W19.XXXA UNSPECIFI ED FALL, INITIAL ENCOUNTER COMPARISON: None. NUMBER OF VIEWS: Three views. TECHNIQUE: AP, lateral, and oblique radiographic images acquired of the right and left ankle. LIMITATIONS: None. FINDINGS: MINERALIZATION: There is diffuse osteopenia bilaterally. BONES: There are postsurgical changes in the left medial malleolus. There is no acute fracture or di slocation. JOINTS: No effusions. SOFT TISSUES: There is vascular calcification bilaterally. OTHER: No other significant finding. IMPRESSION: 1. Diffuse osteopenia. 2. Postsurgical changes in the left medial malleolus. 3. No acute findings on right or left. TECHNICAL DOCUMENTATION: JOB ID: [id number] [employer]- All Rights Reserved
--- NOTE | 2017-02-14 15:07 | RADIOLOGY REPORT (SQ) ---
EXAM DESCRIPTION: FACIAL BONES COMPLETED DATE/TIME: 02/14/2017 2:49 pm REASON FOR STUDY: FACIAL INJURY, INITIAL ENC (S09.93XA) S99.911A UNSPECIFIED INJURY OF RIGHT ANKLE, INITIAL ENCOUNTE S99.912A UNSPECIFIED INJURY OF LEFT ANKLE, INITIAL ENCOUNTER W19.XXXA UNSPECIFIED FALL, INITIAL ENCOUNTER COMPARISON: None. NUMBER OF VIEWS: Four view. TECHNIQUE: Images of the facial bones acquired. LIMITATIONS: None. FINDINGS: ORBITS: No fracture. No foreign body. SINUSES: No mucosal thickening. No air fluid levels. FACIAL BONES: No fracture. OTHER: No other significant finding. IMPRESSION: NO FOREIGN BODY OR FRACTURE OF THE FACIAL BONES. TECHNICAL DOCUMENTATION: JOB ID: [id number] [employer]- All Rights Reserved
--- NOTE | 2017-02-14 15:07 | RADIOLOGY REPORT (SQ) ---
EXAM DESCRIPTION: FOOT RIGHT COMPLETE COMPLETED DATE/TIME: 02/14/2017 2:49 pm REASON FOR STUDY: FOOT INJURY (S99.921A) S99.911A UNSPECIFIED INJURY OF RIGHT ANKLE, INITIAL ENCOUN TE S99.912A UNSPECIFIED INJURY OF LEFT ANKLE, INITIAL ENCOUNTER W19.XXXA UNSPECIFIED FALL, INITIAL ENCOUNTER COMPARISON: None. NUMBER OF VIEWS: Three views. TECHNIQUE: AP, lateral and oblique radiographic images acquired of the right foot. LIMITATIONS: None. FINDINGS: MINERALIZATION: There is osteopenia. BONES: There is an acute fracture of the proximal phalanx of the 2nd disease. Remainder of the skele amy structures are intact. JOINTS: No effusions. SOFT TISSUES: No soft tissue swelling. No foreign body. OTHER: No other significant finding. IMPRESSION: Osteopenia. Acute fracture of the proximal phalanx of the 2nd digit. TECHNICAL DOCUMENTATION: JOB ID: [id number] [employer]- All Rights Reserved
== END ==
LOC: RAD 13:27
PROVIDERS: ATTEND Family Medicine
DX: S99.911A Unspecified injury of right ankle, initial encounter (principal); S99.912A Unspecified injury of left ankle, initial encounter; S92.511A Displaced fracture of proximal phalanx of right lesser toe(s), initial encounter for closed fracture; S09.93XA Unspecified injury of face, initial encounter; W19.XXXA Unspecified fall, initial encounter; R06.02 Shortness of breath; M17.12 Unilateral primary osteoarthritis, left knee
CPT/HCPCS: 70150; 71020

== ENCOUNTER 2017-09-10 18:59 | Emergency (ER) | payer MEDICARE, OTHER ==
[2017-09-10] MEDS ORDERED: ASPIRIN 81 MG TABLET, CHEWABLE PO ONE (19:33)
[2017-09-10] MEDS ORDERED: NITROGLYCERIN 2% OINTMENT 1 GM PACKET TP ONE (19:54)
[2017-09-10] MEDS ORDERED: IPRATROPIUM/ALBUTEROL 0.5-2.5 MG/3 ML AMPUL NEB ONE (19:55)
--- NOTE | 2017-09-10 19:58 | ER Document Report ---
ED General - General Chief Complaint: Chest Pain > 30 Stated Complaint: CHEST PAIN Time Seen by Provider: 09/10/17 19:31 Mode of Arrival: Medic Information source: Patient Notes: This is a 72-year-old female with a history of morbid obesity, oxygen dependent COPD (6 L), coronary artery disease (stents with Plavix), hypertension, diabetes. The patient is brought into the emergency room by EMS because of shortness of breath, chills, dizziness. Patient states she was seen by Dr. Early's office and referred to the ER to make sure she does not have pneumonia. Patient denies fever. She denies any productive cough. Primary CARE physician: Dr. Early. Grizzlyman: Dr. Tellez TRAVEL OUTSIDE OF THE [place] IN LAST 30 DAYS: No - HPI Onset: Last week Onset/Duration: Gradual Quality of pain: No pain Severity: None Pain Level: Denies Associated symptoms: Chest pain, Nonproductive cough, Shortness of breath. denies: Fever Exacerbated by: Denies Relieved by: Denies Similar symptoms previously: Yes Recently seen / treated by doctor: Yes - Related Data Allergies/Adverse Reactions: hydromorphone HCl [From Dilaudid] Allergy (Severe, Verified 09/10/17 19:00) Respiratory arrest codeine [Codeine] Allergy (Intermediate, Verified 09/10/17 19:00) Hallucinations Past Medical History - General Information source: Patient - Social History Smoking Status: Never Smoker Cigarette use (# per day): No Chew tobacco use (# tins/day): No Frequency of alcohol use: None Drug Abuse: None Lives with: Family Family History: DM Patient has suicidal ideation: No Patient has homicidal ideation: No - Past Medical History Cardiac Medical History: Reports: Hx Congestive Heart Failure - Diastolic, Hx Coronary Artery Disease, Hx Heart Attack - cardiac stents x 2, Hx Hypercholesterolemia, Hx Hypertension, Hx Heart Murmur Denies: Hx DVT, Hx Pulmonary Embolism Pulmonary Medical History: Reports: Hx Asthma, Hx Bronchitis, Hx COPD, Hx Sleep Apnea - Bipap Denies: Hx Pneumonia, Hx Tuberculosis Neurological Medical History: Denies: Hx Cerebrovascular Accident, Hx Seizures Endocrine Medical History: Reports: Hx Diabetes Mellitus Type 2, Hx Hypothyroidism. Denies: Hx Diabetes Mellitus Type 1, Hx Hyperthyroidism Renal/ Medical History: Denies: Hx Peritoneal Dialysis GI Medical History: Reports: Hx Gastroesophageal Reflux Disease, Hx Ulcer. Denies: Hx Cirrhosis, Hx Hepatitis Musculoskeltal Medical History: Reports Hx Arthritis - generalized Psychiatric Medical History: Reports: Hx Depression Infectious Medical History: Denies: Hx Hepatitis Past Surgical History: Reports: Hx Appendectomy, Hx Hysterectomy, Hx Neurologic Surgery - spinal fusion, Hx Orthopedic Surgery - carpal tunnel, polio surgery to left leg. Denies: Hx Pacemaker - Immunizations Immunizations up to date: Yes Hx Diphtheria, Pertussis, Tetanus Vaccination: Yes Hx Pneumococcal Vaccination: 08/18/14 Review of Systems - Review of Systems Constitutional: denies: Chills, Fever EENT: No symptoms reported Cardiovascular: See HPI Respiratory: See HPI Gastrointestinal: No symptoms reported Genitourinary: No symptoms reported Female Genitourinary: No symptoms reported Musculoskeletal: No symptoms reported Skin: No symptoms reported Hematologic/Lymphatic: No symptoms reported Neurological/Psychological: No symptoms reported Physical Exam - Vital signs Vitals: Pulse Ox 99 09/10/17 19:17 Notes: Physical exam: GENERAL: 72-year-old female, alert and oriented 3. Blood pressure 195/66, heart rate 75, O2 sat 100% on 4 L, respiratory rate 25 HEAD: Atraumatic, normocephalic. EYES: Pupils equal round and reactive to light, extraocular movements intact, sclera anicteric, conjunctiva are normal. ENT: TMs normal, nares patent, oropharynx clear without exudates. Moist mucous membranes. NECK: Normal range of motion, supple without obvious mass or JVD. LUNGS: Bilateral wheezing HEART: Regular rate and rhythm with a 3/6 systolic murmur at the left lateral sternal border. ABDOMEN: Soft, normoactive bowel sounds. No tenderness to palpation. No guarding, no rebound. No masses appreciated. EXTREMITIES: Chronic lower extremity edema NEUROLOGICAL: Cranial nerves II through XII grossly intact. Normal speech, moving all extremities. PSYCH: Normal mood, normal affect. SKIN: Warm, Dry, normal turgor, no rashes or lesions noted. Course - Re-evaluation Re-evalutation: 09/10/17 23:42 Note: The patient was sent in today for concerns for an upper respiratory infection and possible pneumonia. The patient states she is breathing fairly good and does well with CPAP at night. She has not had fever. Her white count is normal. The chest x-ray shows some mild fluid at the right base. There is no obvious pneumonia. She does have a UTI and I have given her levofloxacin which would cover both urinary source of infection as well as pulmonary. Patient prefers to go home and at this point she appears stable. - Vital Signs Vital signs: Temp Pulse Resp BP Pulse Ox 17 145/60 H 97 09/10/17 21:00 09/11/17 01:00 09/11/17 00:00 - Laboratory Result Diagrams: 09/10/17 19:38 09/10/17 19:38 Laboratory results interpreted by me: 09/10/17 09/10/17 09/10/17 19:38 19:38 20:07 RBC 3.66 L Hgb 10.5 L Hct 33.5 L MCHC 31.3 L RDW 16.0 H Chloride 95 L Carbon Dioxide 40 H* BUN 24 H Urine Blood SMALL H Ur Leukocyte Esterase LARGE H - Diagnostic Test Radiology reviewed: Image reviewed, Reports reviewed - No obvious infiltrates. Small effusion at the left base. - EKG Interpretation by Me Rate: Normal Rhythm: NSR - EKG shows normal sinus rhythm with a ventricular rate of 72, right bundle branch block, left axis deviation, no significant change compared to an EKG performed on 06/22/2017 Discharge - Discharge Clinical Impression: UTI Condition: Stable Disposition: HOME, SELF-CARE Additional Instructions: As we discussed, the your urine test did show infection. A urine culture was sent. Your white count was normal at 8.9. Your electrolytes look pretty good. Chest x-ray showed no definite pneumonia but there was a small amount of fluid at the left base. Given this, I put you on an antibiotic that has good coverage for the urine infection but also has good coverage for potential lung infection as well. Continue with your CPAP/BiPAP at night. Continue current medicines Return to the emergency room for any worsening shortness of breath, difficulty breathing or concerns that she getting worse. Follow-up with Dr. Park's office. Prescriptions: Levofloxacin 500 mg PO DAILY #7 tablet Referrals: JEEVAN EARLY MD [Primary Care Provider] - Follow up in 3-5 days
[2017-09-10 20:01] LABS: ABSOLUTE BASOPHILS # (AUTO) 0.1 10^3/uL (0.0-0.2); ABSOLUTE EOSINOPHILS # (AUTO) 0.2 10^3/uL (0.0-0.6); ABSOLUTE LYMPHOCYTES (AUTO) 1.6 10^3/uL (0.5-4.7); ABSOLUTE MONOCYTES (AUTO) 0.6 10^3/uL (0.1-1.4); ABSOLUTE NEUT (AUTO) 6.4 10^3/uL (1.7-8.2); BASOPHILS % (AUTO) 0.8 % (0-2); EOSINOPHILS % (AUTO) 1.9 % (0-6); HEMATOCRIT 33.5 % (36.0-47.0); HEMOGLOBIN 10.5 g/dL (12.0-15.5); LYMPHOCYTES % (AUTO) 18.3 % (13-45); MEAN CORPUSCULAR HEMOGLOBIN 28.6 pg (27.0-33.4); MEAN CORPUSCULAR HGB CONC 31.3 g/dL (32.0-36.0); MEAN CORPUSCULAR VOLUME 92 fl (80-97); MONOCYTES % (AUTO) 6.6 % (3-13); PLATELET COUNT 391 10^3/uL (150-450); RED BLOOD COUNT 3.66 10^6/uL (3.72-5.28); SEGMENTED NEUTROPHILS % (AUTO) 72.4 % (42-78); TOTAL CELLS COUNTED % (AUTO) 100 %; WHITE BLOOD COUNT 8.9 10^3/uL (4.0-10.5)
[2017-09-10 20:03] LABS: INTERNATIONAL RATION (INR) 0.97; PROTHROMBIN TIME 13.6 SEC (11.4-15.4)
--- NOTE | 2017-09-10 20:14 | RADIOLOGY REPORT (SQ) ---
EXAM DESCRIPTION: CHEST SINGLE VIEW COMPLETED DATE/TIME: 09/10/2017 7:53 pm REASON FOR STUDY: sob COMPARISON: 06/22/2017 EXAM PARAMETERS: NUMBER OF VIEWS: One view. TECHNIQUE: Single frontal radiographic view of the chest acquired. RADIATION DOSE: NA LIMITATIONS: None. FINDINGS: LUNGS AND PLEURA: Increased opacity at the left costophrenic angle, possible airspace dise ase-effusion. Right lung appears clear. MEDIASTINUM AND HILAR STRUCTURES: Stable. HEART AND VASCULAR STRUCTURES: Stable. BONES: No acute findings. HARDWARE: None in the chest. OTHER: No other significant finding. IMPRESSION: Increased opacity at the left costophrenic angle, possible airspace disease-effusion. TECHNICAL DOCUMENTATION: JOB ID: [id number] [id number] [employer]- All Rights Reserved
[2017-09-10 20:27] LABS: CREATINE KINASE MB 1.48 ng/mL (<4.55); TROPONIN I 0.025 ng/mL
[2017-09-10 20:38] LABS: ALANINE AMINOTRANSFERASE 24 U/L (9-52); ALBUMIN 4.3 g/dL (3.5-5.0); ALKALINE PHOSPHATASE 97 U/L (38-126); ASPARTATE AMINO TRANSFERASE 30 U/L (14-36); BILIRUBIN,DIRECT 0.4 mg/dL (0.0-0.4); BILIRUBIN,TOTAL 0.6 mg/dL (0.2-1.3); BLOOD UREA NITROGEN 24 mg/dL (7-20); CALCIUM 9.5 mg/dL (8.4-10.2); CREATINE KINASE 44 U/L (30-135); GLUCOSE 99 mg/dL (75-110); TOTAL PROTEIN 7.9 g/dL (6.3-8.2)
[2017-09-10 20:49] LABS: APPEARANCE,URINE SLIGHTLY-CLOUDY; BILIRUBIN,URINE NEGATIVE (NEGATIVE); COLOR,URINE YELLOW; GLUCOSE, URINE NEGATIVE (NEGATIVE); KETONES,URINE NEGATIVE (NEGATIVE); LEUKOCYTE ESTERASE,URINE LARGE (NEGATIVE); NITRITE,URINE NEGATIVE (NEGATIVE); PROTEIN,URINE NEGATIVE (NEGATIVE); URINE SPECIFIC GRAVITY 1.009; UROBILINOGEN,URINE NEGATIVE mg/dL (<2.0)
[2017-09-10 20:50] LABS: CHLORIDE 95 mmol/L (98-107); POTASSIUM 4.3 mmol/L (3.6-5.0); SODIUM 144.5 mmol/L (137-145)
[2017-09-10 20:52] LABS: ANION GAP 10 (5-19)
[2017-09-10 20:55] LABS: CARBON DIOXIDE 40 mmol/L (22-30)
[2017-09-10] MEDS ORDERED: LEVOFLOXACIN 750 MG/D5W RTU 750 MG/150 ML RTUPB IV ONE (22:21)
[2017-09-11 02:35] VITALS: BP 145/60
--- NOTE | 2017-09-11 12:04 | EKG REPORT ---
SEVERITY:- ABNORMAL ECG - SINUS RHYTHM RBBB AND LAFB : Confirmed by: Odilon Beckwith 11-Sep-2017 12:04:00
--- NOTE | 2017-09-11 12:04 | EKG REPORT ---
SEVERITY:- ABNORMAL ECG - SINUS RHYTHM RBBB AND LAFB PROBABLE LVH WITH SECONDARY REPOL ABNRM : Confirmed by: Odilon Beckwith 11-Sep-2017 12:04:08
== END 2017-09-11 01:00 | disposition home or self-care (01) ==
LOC: ER 18:59
DX: N39.0 Urinary tract infection, site not specified (principal); R07.9 Chest pain, unspecified; E66.01 Morbid (severe) obesity due to excess calories; J44.9 Chronic obstructive pulmonary disease, unspecified; Z99.81 Dependence on supplemental oxygen; I25.10 Atherosclerotic heart disease of native coronary artery without angina pectoris; I10 Essential (primary) hypertension; E11.9 Type 2 diabetes mellitus without complications
CPT/HCPCS: 93005; 94640; 99285; 96365; 36415; 87086; 82553; 82550; 85025; 85610; 87088; 80053; 81001; 84484; 87186; 71045; 93010; A9270 ×2; J1956; J7620

== ENCOUNTER 2017-09-23 14:12 | Inpatient (IN) | payer MEDICARE, OTHER ==
[2017-09-23 15:16] LABS: HEMATOCRIT 26.8 % (36.0-47.0); HEMOGLOBIN 8.4 g/dL (12.0-15.5); MEAN CORPUSCULAR HEMOGLOBIN 28.1 pg (27.0-33.4); MEAN CORPUSCULAR HGB CONC 31.4 g/dL (32.0-36.0); MEAN CORPUSCULAR VOLUME 89 fl (80-97); PLATELET COUNT 275 10^3/uL (150-450); RED CELL DISTRIBUTION WIDTH 15.6 % (11.5-14.0); WHITE BLOOD COUNT 8.5 10^3/uL (4.0-10.5)
[2017-09-23 15:19] LABS: VENOUS BLOOD HCO3 53.5 mmol/L (20-32); VENOUS BLOOD PH 7.22 (7.30-7.42)
[2017-09-23 15:20] LABS: VENOUS BLOOD PCO2 134.4 mmHg (35-63)
--- NOTE | 2017-09-23 15:37 | ER Document Report ---
ED General - General Chief Complaint: Shortness Of Breath Stated Complaint: DIFFICULTY BREATHING Time Seen by Provider: 09/23/17 15:23 Mode of Arrival: Medic Information source: Patient TRAVEL OUTSIDE OF THE [place] IN LAST 30 DAYS: No - HPI Patient complains to provider of: Not feeling well Onset: Other - for a few weeks Associated symptoms: Nausea, Weakness Similar symptoms previously: Yes Recently seen / treated by doctor: No - Related Data Allergies/Adverse Reactions: hydromorphone HCl [From Dilaudid] Allergy (Severe, Verified 09/10/17 19:00) Respiratory arrest codeine [Codeine] Allergy (Intermediate, Verified 09/10/17 19:00) Hallucinations Past Medical History - General Information source: Patient, [facility] Records - Social History Smoking Status: Former Smoker Frequency of alcohol use: None Drug Abuse: None Lives with: Family Family History: DM Patient has suicidal ideation: No Patient has homicidal ideation: No - Medical History Notes: Pt. is DNR - Past Medical History Cardiac Medical History: Reports: Hx Congestive Heart Failure - Diastolic, Hx Coronary Artery Disease, Hx Heart Attack - cardiac stents x 2, Hx Hypercholesterolemia, Hx Hypertension, Hx Heart Murmur - aortic stenosis Denies: Hx DVT, Hx Pulmonary Embolism Pulmonary Medical History: Reports: Hx Asthma, Hx Bronchitis, Hx COPD, Hx Sleep Apnea - Bipap, Other - OHS Denies: Hx Pneumonia, Hx Tuberculosis Neurological Medical History: Denies: Hx Cerebrovascular Accident, Hx Seizures Endocrine Medical History: Reports: Hx Diabetes Mellitus Type 2, Hx Hypothyroidism. Denies: Hx Diabetes Mellitus Type 1, Hx Hyperthyroidism Renal/ Medical History: Reports: None. Denies: Hx Peritoneal Dialysis Malignancy Medical History: Reports: None GI Medical History: Reports: Hx Gastroesophageal Reflux Disease, Hx Ulcer. Denies: Hx Cirrhosis, Hx Hepatitis Musculoskeltal Medical History: Reports Hx Arthritis - generalized Skin Medical History: Reports Hx Cellulitis Psychiatric Medical History: Reports: Hx Depression Infectious Medical History: Reports: Other - polio. Denies: Hx Hepatitis Past Surgical History: Reports: Hx Appendectomy, Hx Colostomy - then reversed, Hx Hysterectomy, Hx Neurologic Surgery - spinal fusion, Hx Orthopedic Surgery - carpal tunnel, polio surgery to left leg. Denies: Hx Pacemaker - Immunizations Immunizations up to date: Yes Hx Diphtheria, Pertussis, Tetanus Vaccination: Yes Hx Pneumococcal Vaccination: 08/18/14 Review of Systems - Review of Systems Constitutional: Weakness, Weight gain EENT: No symptoms reported Cardiovascular: No symptoms reported Gastrointestinal: No symptoms reported Genitourinary: No symptoms reported Female Genitourinary: No symptoms reported Skin: Change in color - LLE Neurological/Psychological: Weakness Physical Exam - Vital signs Vitals: Resp BP 21 H 135/71 H 09/23/17 14:28 09/23/17 14:28 - Notes Notes: PHYSICAL EXAMINATION: GENERAL: Obese female in no acute distress sitting in bed HEAD: Atraumatic, normocephalic. EYES: Pupils equal round and reactive to light, extraocular movements intact, conjunctiva are normal. ENT: Nares patent, oropharynx clear without exudates. Moist mucous membranes. NECK: Normal range of motion, supple without lymphadenopathy LUNGS: Breath sounds clear to auscultation bilaterally and equal. No wheezes rales or rhonchi. HEART: Regular rate and rhythm to 6 holosystolic murmur ABDOMEN: Obese nontender, nondistended abdomen. No guarding, no rebound. No masses appreciated. Incisional scar right mid quadrant area Female : deferred Musculoskeletal: Left lower extremity is paralyzed. Below the knee is a circumferential 5 inch erythematous warm area. No open wounds. NEUROLOGICAL: Cranial nerves grossly intact. Normal speech. PSYCH: Normal mood, normal affect. SKIN: Warm, Dry, normal turgor, no lesions noted. Course - Re-evaluation Re-evalutation: 09/23/17 19:09 Labs- All tests 24 hr 09/23/17 09/23/17 09/23/17 14:45 14:45 14:45 WBC 8.5 RBC 3.00 L Hgb 8.4 L Hct 26.8 L MCV 89 MCH 28.1 MCHC 31.4 L RDW 15.6 H Plt Count 275 Total Counted 100 Seg Neutrophils % Not Reportable Seg Neuts % (Manual) 83 H Lymphocytes % Not Reportable Lymphocytes % (Manual) 5 L Monocytes % Not Reportable Monocytes % (Manual) 10 Eosinophils % Not Reportable Eosinophils % (Manual) 1 Basophils % Not Reportable Basophils % (Manual) 1 Absolute Neutrophils Not Reportable Abs Neuts (Manual) 7.1 Absolute Lymphocytes Not Reportable Abs Lymphs (Manual) 0.4 L Absolute Monocytes Not Reportable Abs Monocytes (Manual) 0.9 Absolute Eosinophils Not Reportable Absolute Eos (Manual) 0.1 Absolute Basophils Not Reportable Abs Basophils (Manual) 0.1 Toxic Granulation SLIGHT Platelet Comment ADEQUATE Anisocytosis SLIGHT Stomatocytes 1+ PT 13.2 INR 0.93 Carbonic Acid HCO3/H2CO3 Ratio ABG pH ABG pCO2 ABG pO2 ABG HCO3 ABG Total CO2 ABG O2 Saturation ABG Base Excess VBG pH VBG pCO2 VBG HCO3 VBG Base Excess FiO2 Sodium 139.9 Potassium 4.8 Chloride 89 L Carbon Dioxide 45 H* Anion Gap 6 BUN 21 H Creatinine 0.67 Est GFR ( Amer) > 60 Est GFR (Non-Af Amer) > 60 Glucose 172 H Lactic Acid Calcium 8.9 Total Bilirubin 0.3 Direct Bilirubin 0.2 Neonat Total Bilirubin Not Reportable Neonat Direct Bilirubin Not Reportable Neonat Indirect Bili Not Reportable AST 23 ALT 22 Alkaline Phosphatase 72 Total Protein 6.1 L Albumin 3.7 Urine Color Urine Appearance Urine pH Ur Specific [place] Urine Protein Urine Glucose (UA) Urine Ketones Urine Blood Urine Nitrite Urine Bilirubin Urine Urobilinogen Ur Leukocyte Esterase Urine WBC (Auto) Urine RBC (Auto) Squamous Epi Cells Auto Urine Mucus (Auto) Urine Ascorbic Acid 09/23/17 09/23/17 09/23/17 14:45 14:45 16:08 WBC RBC Hgb Hct MCV MCH MCHC RDW Plt Count Total Counted Seg Neutrophils % Seg Neuts % (Manual) Lymphocytes % Lymphocytes % (Manual) Monocytes % Monocytes % (Manual) Eosinophils % Eosinophils % (Manual) Basophils % Basophils % (Manual) Absolute Neutrophils Abs Neuts (Manual) Absolute Lymphocytes Abs Lymphs (Manual) Absolute Monocytes Abs Monocytes (Manual) Absolute Eosinophils Absolute Eos (Manual) Absolute Basophils Abs Basophils (Manual) Toxic Granulation Platelet Comment Anisocytosis Stomatocytes PT INR Carbonic Acid HCO3/H2CO3 Ratio ABG pH ABG pCO2 ABG pO2 ABG HCO3 ABG Total CO2 ABG O2 Saturation ABG Base Excess VBG pH 7.22 L VBG pCO2 134.4 H* VBG HCO3 53.5 H VBG Base Excess 23.0 FiO2 Sodium Potassium Chloride Carbon Dioxide Anion Gap BUN Creatinine Est GFR ( Amer) Est GFR (Non-Af Amer) Glucose Lactic Acid 0.8 Calcium Total Bilirubin Direct Bilirubin Neonat Total Bilirubin Neonat Direct Bilirubin Neonat Indirect Bili AST ALT Alkaline Phosphatase Total Protein Albumin Urine Color YELLOW Urine Appearance CLEAR Urine pH 5.0 Ur Specific [place] 1.012 Urine Protein NEGATIVE Urine Glucose (UA) NEGATIVE Urine Ketones NEGATIVE Urine Blood NEGATIVE Urine Nitrite NEGATIVE Urine Bilirubin NEGATIVE Urine Urobilinogen NEGATIVE Ur Leukocyte Esterase NEGATIVE Urine WBC (Auto) 1 Urine RBC (Auto) 1 Squamous Epi Cells Auto 1 Urine Mucus (Auto) RARE Urine Ascorbic Acid NEGATIVE 09/23/17 17:01 WBC RBC Hgb Hct MCV MCH MCHC RDW Plt Count Total Counted Seg Neutrophils % Seg Neuts % (Manual) Lymphocytes % Lymphocytes % (Manual) Monocytes % Monocytes % (Manual) Eosinophils % Eosinophils % (Manual) Basophils % Basophils % (Manual) Absolute Neutrophils Abs Neuts (Manual) Absolute Lymphocytes Abs Lymphs (Manual) Absolute Monocytes Abs Monocytes (Manual) Absolute Eosinophils Absolute Eos (Manual) Absolute Basophils Abs Basophils (Manual) Toxic Granulation Platelet Comment Anisocytosis Stomatocytes PT INR Carbonic Acid 2.95 H HCO3/H2CO3 Ratio 16:1 ABG pH 7.31 L ABG pCO2 98.1 H* ABG pO2 71.2 L ABG HCO3 47.7 H ABG Total CO2 50.7 H ABG O2 Saturation 91.3 L ABG Base Excess 18.7 VBG pH VBG pCO2 VBG HCO3 VBG Base Excess FiO2 40% Sodium Potassium Chloride Carbon Dioxide Anion Gap BUN Creatinine Est GFR ( Amer) Est GFR (Non-Af Amer) Glucose Lactic Acid Calcium Total Bilirubin Direct Bilirubin Neonat Total Bilirubin Neonat Direct Bilirubin Neonat Indirect Bili AST ALT Alkaline Phosphatase Total Protein Albumin Urine Color Urine Appearance Urine pH Ur Specific [place] Urine Protein Urine Glucose (UA) Urine Ketones Urine Blood Urine Nitrite Urine Bilirubin Urine Urobilinogen Ur Leukocyte Esterase Urine WBC (Auto) Urine RBC (Auto) Squamous Epi Cells Auto Urine Mucus (Auto) Urine Ascorbic Acid 09/23/17 19:09 Chest X-Ray 09/23/17 14:16 IMPRESSION: Since the previous chest x-ray 09/10/2017 there has been a significant increase in diffuse infiltrate on the right and further increasing infiltrate and possible consolidation left lower lung zone. - Vital Signs Vital signs: Temp Pulse Resp BP Pulse Ox 97.7 F 88 12 127/78 H 99 09/23/17 17:30 09/23/17 17:30 09/23/17 17:30 09/23/17 17:30 09/23/17 17:30 - Laboratory Result Diagrams: 09/23/17 14:45 09/23/17 14:45 Laboratory results interpreted by me: 09/23/17 09/23/17 09/23/17 14:45 14:45 14:45 RBC 3.00 L Hgb 8.4 L Hct 26.8 L MCHC 31.4 L RDW 15.6 H Seg Neuts % (Manual) 83 H Lymphocytes % (Manual) 5 L Abs Lymphs (Manual) 0.4 L Carbonic Acid ABG pH ABG pCO2 ABG pO2 ABG HCO3 ABG Total CO2 ABG O2 Saturation VBG pH 7.22 L VBG pCO2 134.4 H* VBG HCO3 53.5 H Chloride 89 L Carbon Dioxide 45 H* BUN 21 H Glucose 172 H Total Protein 6.1 L 09/23/17 17:01 RBC Hgb Hct MCHC RDW Seg Neuts % (Manual) Lymphocytes % (Manual) Abs Lymphs (Manual) Carbonic Acid 2.95 H ABG pH 7.31 L ABG pCO2 98.1 H* ABG pO2 71.2 L ABG HCO3 47.7 H ABG Total CO2 50.7 H ABG O2 Saturation 91.3 L VBG pH VBG pCO2 VBG HCO3 Chloride Carbon Dioxide BUN Glucose Total Protein - EKG Interpretation by Ri EKG shows normal: Sinus rhythm - [address] [place]/QRS: RBBB, LAHB/LAFB When compared to previous EKG there are: No significant change Discharge - Discharge Clinical Impression: Obesity hypoventilation syndrome, Morbid obesity with BMI of 50.0-59.9, adult, Left leg cellulitis, DNR (do not resuscitate), Anemia Disposition: ADMITTED INPATIENT Admitting Provider: Hospitalist - Unit Admitted: Telemetry - Dr. Mead
[2017-09-23 15:40] LABS: INTERNATIONAL RATION (INR) 0.93; PROTHROMBIN TIME 13.2 SEC (11.4-15.4)
[2017-09-23 15:41] LABS: ALANINE AMINOTRANSFERASE 22 U/L (9-52); ALBUMIN 3.7 g/dL (3.5-5.0); ALKALINE PHOSPHATASE 72 U/L (38-126); ASPARTATE AMINO TRANSFERASE 23 U/L (14-36); BILIRUBIN,DIRECT 0.2 mg/dL (0.0-0.4); BILIRUBIN,TOTAL 0.3 mg/dL (0.2-1.3); BLOOD UREA NITROGEN 21 mg/dL (7-20); CALCIUM 8.9 mg/dL (8.4-10.2); CHLORIDE 89 mmol/L (98-107); GLUCOSE 172 mg/dL (75-110); POTASSIUM 4.8 mmol/L (3.6-5.0); SODIUM 139.9 mmol/L (137-145); TOTAL PROTEIN 6.1 g/dL (6.3-8.2)
[2017-09-23] MEDS ORDERED: CEFTRIAXONE INJ 1000 MG VIAL IV ONE ×2 (15:44→17:29)
--- NOTE | 2017-09-23 15:49 | RADIOLOGY REPORT (SQ) ---
EXAM DESCRIPTION: CHEST SINGLE VIEW COMPLETED DATE/TIME: 09/23/2017 3:39 pm REASON FOR STUDY: bed 8 sepsis protocol COMPARISON: 09/10/2017 EXAM PARAMETERS: NUMBER OF VIEWS: One view. TECHNIQUE: Single frontal radiographic view of the chest acquired. RADIATION DOSE: NA LIMITATIONS: None. FINDINGS: Diffuse infiltrate right lung. Increasing infiltrate/consolidation left lower lung zone. LUNGS AND PLEURA: No opacities, masses or pneumothorax. No pleural effusion. MEDIASTINUM AND HILAR STRUCTURES: No masses. Contour normal. HEART AND VASCULAR STRUCTURES: Heart normal in size. Normal vasculature. BONES: No acute findings. HARDWARE: None in the chest. OTHER: No other significant finding. IMPRESSION: Since the previous chest x-ray 09/10/2017 there has been a significant increase in diffus e infiltrate on the right and further increasing infiltrate and possible consolidation left lower twyla g zone. TECHNICAL DOCUMENTATION: JOB ID: [id number] [employer]- All Rights Reserved
[2017-09-23 15:52] LABS: ABSOLUTE LYMPHOCYTES# (MANUAL) 0.4 10^3/uL (0.5-4.7); ABSOLUTE MONOCYTES # (MANUAL) 0.9 10^3/uL (0.1-1.4); ABSOLUTE NEUTROPHILS# (MANUAL) 7.1 10^3/uL (1.7-8.2); BASOPHILS % (MANUAL) 1 % (0-2); EOSINOPHILS % (MANUAL) 1 % (0-6); LYMPHOCYTES % (MANUAL) 5 % (13-45); MONOCYTES % (MANUAL) 10 % (3-13); SEGMENTED NEUTROPHILS % (MAN) 83 % (42-78); TOTAL CELLS COUNTED 100
[2017-09-23 15:53] LABS: ANION GAP 6 (5-19); ANISOCYTOSIS SLIGHT; PLATELET COMMENT ADEQUATE; STOMATOCYTES 1+; TOXIC GRANULATION SLIGHT
[2017-09-23 15:55] LABS: CARBON DIOXIDE 45 mmol/L (22-30)
[2017-09-23 16:31] LABS: APPEARANCE,URINE CLEAR; BILIRUBIN,URINE NEGATIVE (NEGATIVE); COLOR,URINE YELLOW; GLUCOSE, URINE NEGATIVE (NEGATIVE); KETONES,URINE NEGATIVE (NEGATIVE); LEUKOCYTE ESTERASE,URINE NEGATIVE (NEGATIVE); NITRITE,URINE NEGATIVE (NEGATIVE); PROTEIN,URINE NEGATIVE (NEGATIVE); URINE SPECIFIC GRAVITY 1.012; UROBILINOGEN,URINE NEGATIVE mg/dL (<2.0)
[2017-09-23 17:21] LABS: ARTERIAL BLOOD BASE EXCESS 18.7 mmol/L; ARTERIAL BLOOD FIO2 40%; ARTERIAL BLOOD H2CO3 2.95 mmol/L (1.05-1.35); ARTERIAL BLOOD HCO3 47.7 mmol/L (20-26); ARTERIAL BLOOD O2 SATURATION 91.3 % (94-98); ARTERIAL BLOOD PH 7.31 (7.35-7.45); ARTERIAL BLOOD PO2 71.2 mmHg (80-100); ARTERIAL BLOOD TOTAL CO2 50.7 mmol/L (21-25)
[2017-09-23 17:24] LABS: ARTERIAL BLOOD PCO2 98.1 mmHg (35-45)
[2017-09-23] MEDS ORDERED: ONDANSETRON HCL INJ/PF 4 MG/2 ML SDV IV PRN (17:44)
[2017-09-23] MEDS ORDERED: OXYCODONE-ACETAMINOPHEN 5-325 MG TABLET PO PRN (17:44)
[2017-09-23] MEDS ORDERED: ALBUTEROL SULFATE 0.083% NEB 2.5 MG/3 ML AMPUL NEB PRN (17:44)
[2017-09-23] MEDS ORDERED: ACETAMINOPHEN 325 MG TABLET PO PRN (17:44)
[2017-09-23] MEDS ORDERED: DEXTROSE 50%-WATER 25 GM/50 ML DISP.SYRIN IV PRN ×2 (17:52)
[2017-09-23] MEDS ORDERED: GLUCAGON,HUMAN RECOMB 1 MG INJ IM PRN (17:52)
[2017-09-23] MEDS ORDERED: DEXTROSE 40% GEL 15 GM TUBE PO PRN ×2 (17:52)
[2017-09-23] MEDS ORDERED: FUROSEMIDE INJ/PF 20 MG/2 ML SDV IV ONE (18:10)
--- NOTE | 2017-09-23 18:29 | PDOC H&P ---
History of Present Illness Admission Date/PCP: 09/23/17 17:42 JEEVAN EARLY MD Patient complains of: Shortness of breath for several days History of Present Illness: ALBERTO DIAL is a 72 year old female arrived to our via EMS. Patient states that she has been having progressive shortness of breath for several days. Patient has been having productive cough. Sometimes the phlegm is a speckled with blood. On occasions she may have some fever and chills. She is supposed to use a BiPAP but both herself and her sister admits that she does not use it as she is supposed to. Her sister also complains of patient being confused primarily in the morning. During the course of evaluation in emergency room CO2 was 133 and required for patient to be on BiPAP it is not worth it to mention that patient has been requiring to use more oxygen than usual, up to 5 L. Considering presentation our service was contacted for further management Past Medical History Cardiac Medical History: Reports: Congestive Heart Failure - Diastolic, Coronary Artery Disease, Myocardial Infarction - cardiac stents x 2, Hyperlipidema, Hypertension, Heart Murmur - aortic stenosis Denies: DVT, Pulmonary Embolism Pulmonary Medical History: Reports: Asthma, Bronchitis, Chronic Obstructive Pulmonary Disease (COPD), Sleep Apnea - Bipap, Other - OHS Denies: Pneumonia, Tuberculosis EENT Medical History: Reports: None Neurological Medical History: Reports: None Denies: Seizures Endocrine Medical History: Reports: Diabetes Mellitus Type 2, Hypothyroidism Denies: Diabetes Mellitus Type 1, Hyperthyroidism Renal/ Medical History: Reports: None Malignancy Medical History: Reports: None GI Medical History: Reports: Gastroesophageal Reflux Disease Denies: Cirrhosis, Hepatitis Musculoskeltal Medical History: Reports: Arthritis - generalized Skin Medical History: Reports: None Psychiatric Medical History: Reports: Depression Traumatic Medical History: Reports: None Hematology: Reports: Anemia Past Surgical History Past Surgical History: Reports: Appendectomy, Colostomy - then reversed, Hysterectomy, Orthopedic Surgery - carpal tunnel, polio surgery to left leg Denies: Pacemaker Social History Information Source: Patient Lives with: Family Smoking Status: Former Smoker Frequency of Alcohol Use: None Hx Recreational Drug Use: No Drugs: None Hx Prescription Drug Abuse: No - Advance Directive Resuscitation Status: Do Not Resuscitate Family History Family History: DM Parental Family History Reviewed: Yes Children Family History Reviewed: Yes Sibling(s) Family History Reviewed.: Yes Medication/Allergy Allergies/Adverse Reactions: hydromorphone HCl [From Dilaudid] Allergy (Severe, Verified 09/10/17 19:00) Respiratory arrest codeine [Codeine] Allergy (Intermediate, Verified 09/10/17 19:00) Hallucinations Review of Systems Constitutional: PRESENT: fatigue, headache(s), weakness Eyes: PRESENT: visual disturbances Ears: ABSENT: hearing changes Nose, Mouth, and Throat: PRESENT: mouth pain, sore throat Cardiovascular: PRESENT: chest pain, other - spitting blood Gastrointestinal: ABSENT: abdominal pain Genitourinary: ABSENT: dysuria, hematuria Musculoskeletal: PRESENT: deformity, joint swelling, muscle weakness Neurological: PRESENT: abnormal gait Psychiatric: PRESENT: depression. ABSENT: hallucinations Physical Exam Vital Signs: Temp Pulse Resp BP Pulse Ox 97.7 F 88 12 127/78 H 99 09/23/17 17:30 09/23/17 17:30 09/23/17 17:30 09/23/17 17:30 09/23/17 17:30 General appearance: PRESENT: cooperative, morbidly obese Head exam: PRESENT: atraumatic, normocephalic Eye exam: PRESENT: conjunctiva pink, EOMI, PERRLA Ear exam: PRESENT: normal external ear exam Mouth exam: PRESENT: moist Neck exam: PRESENT: full ROM. ABSENT: JVD, lymphadenopathy, tenderness, thyromegaly Respiratory exam: PRESENT: crackles, decreased breath sounds. ABSENT: tachypnea , unlabored Cardiovascular exam: PRESENT: RRR. ABSENT: diastolic murmur, systolic murmur Vascular exam: PRESENT: normal capillary refill GI/Abdominal exam: PRESENT: normal bowel sounds, soft. ABSENT: tenderness Rectal exam: PRESENT: deferred Extremities exam: PRESENT: other - 4+ pitting edema of right and left lower extremities. Edema is worse in the left lower extremity. There is erythema noted to left lower extremity. ABSENT: full ROM Musculoskeletal exam: ABSENT: ambulatory Neurological exam: PRESENT: alert, awake, oriented to person, oriented to place , oriented to time, oriented to situation Psychiatric exam: PRESENT: appropriate affect, normal mood Skin exam: PRESENT: erythema Results Impressions: Chest X-Ray 09/23/17 14:16 IMPRESSION: Since the previous chest x-ray 09/10/2017 there has been a significant increase in diffuse infiltrate on the right and further increasing infiltrate and possible consolidation left lower lung zone. Assessment & Plan - Diagnosis (1) Acute on chronic diastolic (congestive) heart failure Is this a current diagnosis for this admission?: Yes Plan: Patient will be placed lasix IV and will monitor BMP closely as I suspect patient may become cardiorenal (2) Acute and chronic respiratory failure with hypercapnia Is this a current diagnosis for this admission?: Yes Plan: Will continue with BiPAP with oxygen supplementation continuously. Patient will be allowed free time to eat (3) Morbid obesity with alveolar hypoventilation Is this a current diagnosis for this admission?: Yes Plan: Certainly contributing to presentation. Patient states that she had lost like around 100 pounds (4) Diabetes mellitus type 2 in obese Is this a current diagnosis for this admission?: Yes Plan: Patient will be placed on Humalog sliding scale and will check glucose before meals and at bedtime (5) Hypothyroid Qualifiers: Hypothyroidism type: acquired Qualified Code(s): E03.9 - Hypothyroidism, unspecified Is this a current diagnosis for this admission?: Yes (6) COPD (chronic obstructive pulmonary disease) with acute bronchitis Is this a current diagnosis for this admission?: Yes Plan: Patient will be placed on DuoNeb, Mucinex, IV steroids and Zithromax (7) Cellulitis of leg, left Is this a current diagnosis for this admission?: Yes Plan: Patient will be placed on Rocephin IV (8) History of poliomyelitis Is this a current diagnosis for this admission?: Yes Plan: Patient has limited mobility therefore limiting her exercise capacity - Time Time Spent: 50 to 70 Minutes Medications reviewed and adjusted accordingly: Yes Anticipated discharge: Home Within: within 72 hours - Inpatient Certification Based on my medical assessment, after consideration of the patient's comorbidities, presenting symptoms, or acuity I expect that the services needed warrant INPATIENT care.: Yes I certify that my determination is in accordance with my understanding of Medicare's requirements for reasonable and necessary INPATIENT services [42 CFR 412.3e].: Yes Medical Necessity: Need Close Monitoring Due to Risk of Patient Decompensation, Need For Continuous Telemetry Monitoring, Need for Nebulizer Therapy and Monitoring of Response, Need for IV Antibiotics
[2017-09-23] MEDS ORDERED: AZITHROMYCIN 250 MG TABLET PO SCH (19:00)
[2017-09-23] MEDS: GUAIFENESIN 600 MG TABLET.SA PO SCH (19:21)
[2017-09-23] MEDS ORDERED: IPRATROPIUM/ALBUTEROL 0.5-2.5 MG/3 ML AMPUL NEB SCH (20:00)
[2017-09-23] MEDS: LORAZEPAM INJ 2 MG/1 ML VIAL IV PRN (20:33)
[2017-09-23 21:57] LABS: ARTERIAL BLOOD BASE EXCESS 19.2 mmol/L; ARTERIAL BLOOD FIO2 70%; ARTERIAL BLOOD H2CO3 4.33 mmol/L (1.05-1.35); ARTERIAL BLOOD O2 SATURATION 82.7 % (94-98); ARTERIAL BLOOD PO2 63.3 mmHg (80-100); ARTERIAL BLOOD TOTAL CO2 56.4 mmol/L (21-25)
[2017-09-23 22:00] LABS: ARTERIAL BLOOD PH 7.18 (7.35-7.45)
[2017-09-23] MEDS ORDERED: FUROSEMIDE INJ/PF 20 MG/2 ML SDV IV SCH (22:00)
[2017-09-23 22:01] LABS: ARTERIAL BLOOD PCO2 143.7 mmHg (35-45)
[2017-09-23] MEDS ORDERED: SODIUM BICARBONATE 8.4% INJ 50 MEQ/50 ML DISP.SYRIN IV ONE (22:08)
[2017-09-23] MEDS ORDERED: MAGNESIUM SULFATE/D5W 1 GM/100 ML RTUPB IV ONE (22:13)
--- NOTE | 2017-09-23 22:51 | EKG REPORT ---
SEVERITY:- ABNORMAL ECG - SINUS RHYTHM RBBB AND LAFB PROBABLE LVH WITH SECONDARY REPOL ABNRM : Confirmed by: Odilon Beckwith 23-Sep-2017 22:50:27
[2017-09-23] MEDS: METHYLPREDNISOLONE INJ 40 MG/1 ML SDV IV SCH (23:12)
[2017-09-23] MEDS: HEPARIN SOD (PORCINE) 5,000 UNIT/ML 1 ML SYRINGE SUBCUT SCH (23:13)
[2017-09-23] MEDS: FUROSEMIDE INJ/PF 20 MG/2 ML SDV IV SCH (23:13)
[2017-09-24 01:26] LABS: ARTERIAL BLOOD BASE EXCESS 22.3 mmol/L; ARTERIAL BLOOD H2CO3 3.75 mmol/L (1.05-1.35); ARTERIAL BLOOD HCO3 53.5 mmol/L (20-26); ARTERIAL BLOOD O2 SATURATION 95.4 % (94-98); ARTERIAL BLOOD PH 7.25 (7.35-7.45); ARTERIAL BLOOD PO2 96.7 mmHg (80-100); ARTERIAL BLOOD TOTAL CO2 57.3 mmol/L (21-25)
[2017-09-24 01:49] LABS: ARTERIAL BLOOD FIO2 50%
[2017-09-24 01:50] LABS: ARTERIAL BLOOD PCO2 124.5 mmHg (35-45)
[2017-09-24] MEDS: LORAZEPAM INJ 2 MG/1 ML VIAL IV PRN (04:34)
[2017-09-24] MEDS ORDERED: SODIUM BICARBONATE 8.4% INJ 50 MEQ/50 ML DISP.SYRIN IV ONE (04:52)
[2017-09-24] MEDS: HEPARIN SOD (PORCINE) 5,000 UNIT/ML 1 ML SYRINGE SUBCUT SCH ×3 (05:28→21:39)
[2017-09-24] MEDS: METHYLPREDNISOLONE INJ 40 MG/1 ML SDV IV SCH ×3 (05:28→21:39)
[2017-09-24 06:09] LABS: HEMATOCRIT 29.2 % (36.0-47.0); HEMOGLOBIN 9.3 g/dL (12.0-15.5); MEAN CORPUSCULAR HEMOGLOBIN 28.5 pg (27.0-33.4); MEAN CORPUSCULAR HGB CONC 31.8 g/dL (32.0-36.0); MEAN CORPUSCULAR VOLUME 90 fl (80-97); PLATELET COUNT 280 10^3/uL (150-450); RED BLOOD COUNT 3.25 10^6/uL (3.72-5.28); RED CELL DISTRIBUTION WIDTH 15.1 % (11.5-14.0); WHITE BLOOD COUNT 9.4 10^3/uL (4.0-10.5)
[2017-09-24 06:31] LABS: BLOOD UREA NITROGEN 22 mg/dL (7-20); CALCIUM 9.1 mg/dL (8.4-10.2); CHLORIDE 88 mmol/L (98-107); GLUCOSE 230 mg/dL (75-110); POTASSIUM 4.4 mmol/L (3.6-5.0); SODIUM 142.5 mmol/L (137-145)
[2017-09-24 06:42] LABS: ANION GAP 9 (5-19)
[2017-09-24 06:43] LABS: CARBON DIOXIDE 46 mmol/L (22-30)
[2017-09-24 07:03] LABS: ABSOLUTE LYMPHOCYTES# (MANUAL) 0.2 10^3/uL (0.5-4.7); ABSOLUTE MONOCYTES # (MANUAL) 0.3 10^3/uL (0.1-1.4); ABSOLUTE NEUTROPHILS# (MANUAL) 8.9 10^3/uL (1.7-8.2); BASOPHILS % (MANUAL) 0 % (0-2); EOSINOPHILS % (MANUAL) 0 % (0-6); LYMPHOCYTES % (MANUAL) 2 % (13-45); MONOCYTES % (MANUAL) 3 % (3-13); SEGMENTED NEUTROPHILS % (MAN) 95 % (42-78); TOTAL CELLS COUNTED 100
[2017-09-24 07:04] LABS: ANISOCYTOSIS 1+; POLYCHROMASIA SLIGHT; STOMATOCYTES 2+; TEAR DROP CELLS SLIGHT
[2017-09-24 07:05] LABS: PLATELET COMMENT ADEQUATE
[2017-09-24 07:06] LABS: TOXIC GRANULATION 1+; TOXIC VACUOLATION PRESENT
[2017-09-24] MEDS: BUDESONIDE NEB 0.5 MG/2 ML AMPUL NEB SCH ×2 (08:02→19:59)
[2017-09-24] MEDS: IPRATROPIUM/ALBUTEROL 0.5-2.5 MG/3 ML AMPUL NEB SCH ×4 (08:02→19:59)
--- NOTE | 2017-09-24 09:16 | EKG REPORT ---
SEVERITY:- ABNORMAL ECG - SINUS TACHYCARDIA RBBB AND LAFB PROBABLE LVH WITH SECONDARY REPOL ABNRM : Confirmed by: Odilon Beckwith 24-Sep-2017 09:15:46
[2017-09-24] MEDS ORDERED: CEFTRIAXONE SODIUM 1,000 MG in NORMAL SALINE 50 ML IV SCH (10:00)
[2017-09-24] MEDS ORDERED: CEFTRIAXONE 1 GM/D5W RTU 1 GM/50 ML RTUPB IV SCH (10:00)
[2017-09-24] MEDS ORDERED: CEFTRIAXONE SODIUM 1,000 MG in DEXTROSE 5%-WATER 50 ML IV SCH (10:00)
[2017-09-24] MEDS: INSULIN LISPRO 100 UNIT/ML 3 ML VIAL SUBCUT PRN ×2 (10:29→20:35)
[2017-09-24] MEDS: AMLODIPINE BESYLATE 5 MG TABLET PO SCH (11:24)
[2017-09-24] MEDS: DOCUSATE SODIUM 100 MG CAPSULE PO SCH (11:25)
[2017-09-24] MEDS: GUAIFENESIN 600 MG TABLET.SA PO SCH ×2 (11:25→18:38)
[2017-09-24] MEDS: LEVOFLOXACIN 750 MG/D5W RTU 750 MG/150 ML RTUPB IV SCH (11:26)
[2017-09-24] MEDS: FUROSEMIDE INJ/PF 20 MG/2 ML SDV IV SCH ×2 (11:26→21:39)
[2017-09-24] MEDS: ALPRAZOLAM 0.25 MG TABLET PO PRN (14:24)
--- NOTE | 2017-09-24 16:32 | PDOC PROGRESS REPORT ---
Subjective Progress Note for:: 09/24/17 Subjective:: Patient relates that her breathing is not much better. She admits being anxious. Review of systems All organ systems evaluated and negative except as in subjective All significant laboratories and diagnostics have been reviewed Reason For Visit: ACUTE ON CHRONIC RESPIRATORY FAILURE Physical Exam Vital Signs: Temp Pulse Resp BP Pulse Ox 97.9 F 102 H 20 145/70 H 94 09/24/17 04:48 09/24/17 04:48 09/24/17 04:48 09/24/17 04:48 09/24/17 04:48 Intake & Output 09/23/17 09/24/17 09/25/17 06:59 06:59 06:59 Intake Total 407 Output Total 1800 Balance -1393 Weight 122.7 kg General appearance: PRESENT: cooperative, morbidly obese Head exam: PRESENT: atraumatic, normocephalic Eye exam: PRESENT: conjunctiva pink, EOMI, PERRLA Ear exam: PRESENT: normal external ear exam, TM's normal bilaterally Mouth exam: PRESENT: moist Neck exam: PRESENT: full ROM. ABSENT: JVD, lymphadenopathy, tenderness Respiratory exam: PRESENT: decreased breath sounds, other - Soft basilar crackles Cardiovascular exam: PRESENT: tachycardia. ABSENT: diastolic murmur, systolic murmur Vascular exam: PRESENT: normal capillary refill GI/Abdominal exam: PRESENT: normal bowel sounds, soft. ABSENT: tenderness Extremities exam: PRESENT: other - Swelling and redness of lower extremities shows some improvement. At present 3+ pitting edema Musculoskeletal exam: ABSENT: ambulatory Neurological exam: PRESENT: alert, awake, oriented to person, oriented to place , oriented to time, oriented to situation Psychiatric exam: PRESENT: depressed Skin exam: PRESENT: erythema - Of left lower extremity Results Laboratory Results: 09/24/17 05:16 09/24/17 05:16 09/23/17 09/24/17 09/24/17 20:40 01:10 05:16 WBC 9.4 RBC 3.25 L Hgb 9.3 L Hct 29.2 L MCV 90 MCH 28.5 MCHC 31.8 L RDW 15.1 H Plt Count 280 Seg Neutrophils % Not Reportable Lymphocytes % Not Reportable Monocytes % Not Reportable Eosinophils % Not Reportable Basophils % Not Reportable Absolute Neutrophils Not Reportable Absolute Lymphocytes Not Reportable Absolute Monocytes Not Reportable Absolute Eosinophils Not Reportable Absolute Basophils Not Reportable Carbonic Acid 4.33 H 3.75 H HCO3/H2CO3 Ratio 12:1 14:1 ABG pH 7.18 L* 7.25 L ABG pCO2 143.7 H* 124.5 H* ABG pO2 63.3 L 96.7 ABG HCO3 52.0 H 53.5 H ABG O2 Saturation 82.7 L 95.4 ABG Base Excess 19.2 22.3 FiO2 70% 50% Sodium Potassium Chloride Carbon Dioxide Anion Gap BUN Creatinine Est GFR ( Amer) Est GFR (Non-Af Amer) Glucose Calcium Magnesium 09/24/17 05:16 WBC RBC Hgb Hct MCV MCH MCHC RDW Plt Count Seg Neutrophils % Lymphocytes % Monocytes % Eosinophils % Basophils % Absolute Neutrophils Absolute Lymphocytes Absolute Monocytes Absolute Eosinophils Absolute Basophils Carbonic Acid HCO3/H2CO3 Ratio ABG pH ABG pCO2 ABG pO2 ABG HCO3 ABG O2 Saturation ABG Base Excess FiO2 Sodium 142.5 Potassium 4.4 Chloride 88 L Carbon Dioxide 46 H* Anion Gap 9 BUN 22 H Creatinine 0.59 Est GFR ( Amer) > 60 Est GFR (Non-Af Amer) > 60 Glucose 230 H Calcium 9.1 Magnesium 2.0 09/23/17 23:00 Troponin I 0.137 Impressions: Chest X-Ray 09/23/17 14:16 IMPRESSION: Since the previous chest x-ray 09/10/2017 there has been a significant increase in diffuse infiltrate on the right and further increasing infiltrate and possible consolidation left lower lung zone. Assessment & Plan - Diagnosis (1) Acute on chronic diastolic (congestive) heart failure Is this a current diagnosis for this admission?: Yes Plan: Continue Lasix IV, Norvasc and will add lisinopril (2) Acute and chronic respiratory failure with hypercapnia Is this a current diagnosis for this admission?: Yes Plan: Will continue with BiPAP with oxygen supplementation continuously. Patient will be allowed free time to eat. Will try Provigil (3) Morbid obesity with alveolar hypoventilation Is this a current diagnosis for this admission?: Yes Plan: Certainly contributing to presentation. Patient states that she had lost like around 100 pounds (4) Diabetes mellitus type 2 in obese Is this a current diagnosis for this admission?: Yes Plan: Continue Humalog sliding scale and will check glucose before meals and at bedtime (5) Hypothyroid Qualifiers: Hypothyroidism type: acquired Qualified Code(s): E03.9 - Hypothyroidism, unspecified Is this a current diagnosis for this admission?: Yes Plan: Continue outpatient regimen (6) COPD (chronic obstructive pulmonary disease) with acute bronchitis Is this a current diagnosis for this admission?: Yes Plan: Continue DuoNeb, Mucinex, IV steroids and Levaquin (7) Cellulitis of leg, left Is this a current diagnosis for this admission?: Yes Plan: Will follow up response to Levaquin (8) History of poliomyelitis Is this a current diagnosis for this admission?: Yes Plan: Patient has limited mobility therefore limiting her exercise capacity. Supportive (9) Anemia Qualifiers: Anemia type: unspecified type Qualified Code(s): D64.9 - Anemia, unspecified Is this a current diagnosis for this admission?: Yes Plan: Will trend - Time Time Spent with patient: 15-24 minutes Medications reviewed and adjusted accordingly: Yes Anticipated discharge: Home Within: within 72 hours - Inpatient Certification Based on my medical assessment, after consideration of the patient's comorbidities, presenting symptoms, or acuity I expect that the services needed warrant INPATIENT care.: Yes I certify that my determination is in accordance with my understanding of Medicare's requirements for reasonable and necessary INPATIENT services [42 CFR 412.3e].: Yes Medical Necessity: Need for Nebulizer Therapy and Monitoring of Response, Need for IV Antibiotics
[2017-09-24] MEDS: LISINOPRIL 10 MG TABLET PO SCH (21:39)
[2017-09-25] MEDS: ZOLPIDEM TARTRATE 5 MG TABLET PO PRN (01:13)
[2017-09-25] MEDS: INSULIN LISPRO 100 UNIT/ML 3 ML VIAL SUBCUT PRN ×3 (01:43→17:40)
[2017-09-25] MEDS: HEPARIN SOD (PORCINE) 5,000 UNIT/ML 1 ML SYRINGE SUBCUT SCH ×3 (05:10→21:46)
[2017-09-25] MEDS: METHYLPREDNISOLONE INJ 40 MG/1 ML SDV IV SCH ×3 (05:10→21:46)
[2017-09-25 06:27] LABS: ARTERIAL BLOOD BASE EXCESS 26.3 mmol/L; ARTERIAL BLOOD H2CO3 3.33 mmol/L (1.05-1.35); ARTERIAL BLOOD HCO3 56.6 mmol/L (20-26); ARTERIAL BLOOD O2 SATURATION 97.2 % (94-98); ARTERIAL BLOOD PH 7.33 (7.35-7.45)
[2017-09-25 06:34] LABS: ARTERIAL BLOOD FIO2 60%
[2017-09-25 06:35] LABS: ARTERIAL BLOOD PCO2 110.5 mmHg (35-45)
[2017-09-25] MEDS: BUDESONIDE NEB 0.5 MG/2 ML AMPUL NEB SCH ×2 (08:04→20:03)
[2017-09-25] MEDS: IPRATROPIUM/ALBUTEROL 0.5-2.5 MG/3 ML AMPUL NEB SCH ×4 (08:04→20:03)
[2017-09-25] MEDS ORDERED: FUROSEMIDE INJ/PF 40 MG/4 ML SDV IV SCH (10:00)
[2017-09-25] MEDS ORDERED: INSULIN GLARGINE,HUM.REC.ANLOG 300 UNIT/3 ML INSULN.PEN SUBCUT SCH (10:15)
[2017-09-25] MEDS: LEVOFLOXACIN 750 MG/D5W RTU 750 MG/150 ML RTUPB IV SCH (10:24)
[2017-09-25] MEDS: LISINOPRIL 10 MG TABLET PO SCH ×2 (10:26→21:46)
[2017-09-25] MEDS: DOCUSATE SODIUM 100 MG CAPSULE PO SCH (10:28)
[2017-09-25] MEDS: ALPRAZOLAM 0.25 MG TABLET PO PRN ×2 (10:28→22:44)
[2017-09-25] MEDS: GUAIFENESIN 600 MG TABLET.SA PO SCH ×2 (10:28→17:40)
[2017-09-25] MEDS: AMLODIPINE BESYLATE 5 MG TABLET PO SCH (10:28)
[2017-09-25] MEDS: MODAFINIL 100 MG TABLET PO SCH (13:24)
--- NOTE | 2017-09-25 18:13 | PDOC PROGRESS REPORT ---
Subjective Progress Note for:: 09/25/17 Subjective:: Patient complains of feeling thirsty. Patient also states that her breathing is difficult without using the BiPAP. Accordingly she was on hospice around 10 years ago. Patient still not amenable to go or being intubated. Had lengthy conversation with her as well as family members overall pulmonary status. We agreed that patient will think about if she wants to be intubated and will consult pulmonary. Accordingly since her last admission back in June she was supposed to see Dr. Sanders but had not been able to get an appointment Review of systems All organ systems evaluated and negative except as in subjective All significant laboratories and diagnostics have been reviewed Reason For Visit: ACUTE ON CHRONIC RESPIRATORY FAILURE Physical Exam Vital Signs: Temp Pulse Resp BP Pulse Ox 97.6 F 88 25 H 145/65 H 100 09/25/17 04:29 09/25/17 04:29 09/25/17 04:29 09/25/17 04:29 09/25/17 04:29 Intake & Output 09/24/17 09/25/17 09/26/17 06:59 06:59 06:59 Intake Total 407 465 Output Total 1800 2150 Balance -1393 -1685 Weight 122.7 kg 124.5 kg General appearance: PRESENT: cooperative, morbidly obese, other - Anxious Head exam: PRESENT: atraumatic, normocephalic Eye exam: PRESENT: conjunctiva pink, EOMI, PERRLA Ear exam: PRESENT: normal external ear exam Mouth exam: PRESENT: moist Neck exam: PRESENT: full ROM. ABSENT: JVD, lymphadenopathy, tenderness Respiratory exam: PRESENT: clear to auscultation joel, decreased breath sounds Cardiovascular exam: PRESENT: RRR. ABSENT: diastolic murmur, systolic murmur Vascular exam: PRESENT: normal capillary refill GI/Abdominal exam: PRESENT: normal bowel sounds, soft. ABSENT: tenderness Extremities exam: PRESENT: other - 3+ pitting edema bilaterally Musculoskeletal exam: ABSENT: ambulatory Neurological exam: PRESENT: alert, awake, oriented to person, oriented to place , oriented to time, CN II-XII grossly intact Psychiatric exam: PRESENT: anxious Skin exam: PRESENT: intact, normal color Results Laboratory Results: 09/24/17 05:16 09/24/17 05:16 09/25/17 06:05 Carbonic Acid 3.33 H HCO3/H2CO3 Ratio 16:1 ABG pH 7.33 L ABG pCO2 110.5 H* ABG pO2 111.0 H ABG HCO3 56.6 H ABG O2 Saturation 97.2 ABG Base Excess 26.3 FiO2 60% 09/23/17 23:00 Troponin I 0.137 Impressions: Chest X-Ray 09/23/17 14:16 IMPRESSION: Since the previous chest x-ray 09/10/2017 there has been a significant increase in diffuse infiltrate on the right and further increasing infiltrate and possible consolidation left lower lung zone. Assessment & Plan - Diagnosis (1) Acute on chronic diastolic (congestive) heart failure Is this a current diagnosis for this admission?: Yes Plan: Discontinue Lasix since she might be getting on the dry side due to complaints of being thirsty. Continue Norvasc and lisinopril (2) Acute and chronic respiratory failure with hypercapnia Is this a current diagnosis for this admission?: Yes Plan: Will continue with BiPAP with oxygen supplementation. Will consult Dr. Sanders. Palliative care consulted (3) Morbid obesity with alveolar hypoventilation Is this a current diagnosis for this admission?: Yes Plan: Certainly contributing to presentation. Patient states that she had lost like around 100 pounds. (4) Diabetes mellitus type 2 in obese Is this a current diagnosis for this admission?: Yes Plan: Continue Humalog sliding scale and bedside glucose before meals and at bedtime (5) Hypothyroid Qualifiers: Hypothyroidism type: unspecified Qualified Code(s): E03.9 - Hypothyroidism , unspecified Is this a current diagnosis for this admission?: Yes Plan: Continue outpatient regimen (6) COPD (chronic obstructive pulmonary disease) with acute bronchitis Is this a current diagnosis for this admission?: Yes Plan: Continue DuoNeb, Mucinex, IV steroids and Levaquin (7) Cellulitis of leg, left Is this a current diagnosis for this admission?: Yes Plan: Will follow up response to Levaquin (8) History of poliomyelitis Is this a current diagnosis for this admission?: Yes Plan: Patient has limited mobility therefore limiting her exercise capacity. Supportive (9) Anemia Qualifiers: Anemia type: unspecified type Qualified Code(s): D64.9 - Anemia, unspecified Is this a current diagnosis for this admission?: Yes Plan: Stable - Time Time Spent with patient: 25-34 minutes Medications reviewed and adjusted accordingly: Yes Anticipated discharge: Home with Homehealth Within: within 72 hours - Inpatient Certification Based on my medical assessment, after consideration of the patient's comorbidities, presenting symptoms, or acuity I expect that the services needed warrant INPATIENT care.: Yes I certify that my determination is in accordance with my understanding of Medicare's requirements for reasonable and necessary INPATIENT services [42 CFR 412.3e].: Yes Medical Necessity: Need Close Monitoring Due to Risk of Patient Decompensation, Need For Continuous Telemetry Monitoring
[2017-09-25 18:18] LABS: ARTERIAL BLOOD BASE EXCESS 33.1 mmol/L; ARTERIAL BLOOD H2CO3 4.54 mmol/L (1.05-1.35); ARTERIAL BLOOD HCO3 66.1 mmol/L (20-26); ARTERIAL BLOOD O2 SATURATION 98.9 % (94-98); ARTERIAL BLOOD PH 7.26 (7.35-7.45); ARTERIAL BLOOD PO2 194.8 mmHg (80-100); ARTERIAL BLOOD TOTAL CO2 70.7 mmol/L (21-25)
[2017-09-25 18:53] LABS: ARTERIAL BLOOD FIO2 50
[2017-09-25 18:55] LABS: ARTERIAL BLOOD PCO2 150.7 mmHg (35-45)
[2017-09-25 19:39] LABS: ARTERIAL BLOOD BASE EXCESS 29.6 mmol/L; ARTERIAL BLOOD H2CO3 2.96 mmol/L (1.05-1.35); ARTERIAL BLOOD O2 SATURATION 86.6 % (94-98); ARTERIAL BLOOD PO2 56.6 mmHg (80-100); ARTERIAL BLOOD TOTAL CO2 62.1 mmol/L (21-25)
[2017-09-25 19:40] LABS: ARTERIAL BLOOD FIO2 35%
[2017-09-25 19:42] LABS: ARTERIAL BLOOD PCO2 98.4 mmHg (35-45)
[2017-09-26] MEDS: ZOLPIDEM TARTRATE 5 MG TABLET PO PRN (00:36)
[2017-09-26] MEDS: INSULIN LISPRO 100 UNIT/ML 3 ML VIAL SUBCUT PRN ×5 (00:49→23:09)
[2017-09-26] MEDS: HEPARIN SOD (PORCINE) 5,000 UNIT/ML 1 ML SYRINGE SUBCUT SCH ×3 (05:08→21:31)
[2017-09-26] MEDS: METHYLPREDNISOLONE INJ 40 MG/1 ML SDV IV SCH ×3 (05:08→21:31)
[2017-09-26 05:22] LABS: HEMOGLOBIN 8.9 g/dL (12.0-15.5); MEAN CORPUSCULAR HEMOGLOBIN 28.2 pg (27.0-33.4); MEAN CORPUSCULAR HGB CONC 31.7 g/dL (32.0-36.0); MEAN CORPUSCULAR VOLUME 89 fl (80-97); PLATELET COUNT 357 10^3/uL (150-450); RED BLOOD COUNT 3.15 10^6/uL (3.72-5.28); RED CELL DISTRIBUTION WIDTH 15.3 % (11.5-14.0); WHITE BLOOD COUNT 8.9 10^3/uL (4.0-10.5)
[2017-09-26 05:30] LABS: BLOOD UREA NITROGEN 28 mg/dL (7-20); CALCIUM 9.5 mg/dL (8.4-10.2); CHLORIDE 84 mmol/L (98-107); GLUCOSE 203 mg/dL (75-110); SODIUM 140.7 mmol/L (137-145)
[2017-09-26 05:42] LABS: ANION GAP 7 (5-19); CARBON DIOXIDE 50 mmol/L (22-30)
[2017-09-26 06:15] LABS: ABSOLUTE LYMPHOCYTES# (MANUAL) 0.1 10^3/uL (0.5-4.7); ABSOLUTE MONOCYTES # (MANUAL) 0.4 10^3/uL (0.1-1.4); ABSOLUTE NEUTROPHILS# (MANUAL) 8.5 10^3/uL (1.7-8.2); BAND NEUTROPHILS % (MANUAL) 1 % (3-5); BASOPHILS % (MANUAL) 0 % (0-2); EOSINOPHILS % (MANUAL) 0 % (0-6); LYMPHOCYTES % (MANUAL) 1 % (13-45); MONOCYTES % (MANUAL) 4 % (3-13); SEGMENTED NEUTROPHILS % (MAN) 94 % (42-78); TOTAL CELLS COUNTED 100
[2017-09-26 06:18] LABS: PLATELET COMMENT ADEQUATE; POIKILOCYTOSIS 3+
[2017-09-26 06:22] LABS: STOMATOCYTES 3+
[2017-09-26 06:47] LABS: ARTERIAL BLOOD BASE EXCESS 24.2 mmol/L; ARTERIAL BLOOD H2CO3 2.48 mmol/L (1.05-1.35); ARTERIAL BLOOD HCO3 52.4 mmol/L (20-26); ARTERIAL BLOOD O2 SATURATION 89.2 % (94-98); ARTERIAL BLOOD PH 7.42 (7.35-7.45); ARTERIAL BLOOD PO2 58.8 mmHg (80-100)
[2017-09-26 06:48] LABS: ARTERIAL BLOOD FIO2 35%
[2017-09-26 06:49] LABS: ARTERIAL BLOOD PCO2 82.3 mmHg (35-45)
[2017-09-26] MEDS: IPRATROPIUM/ALBUTEROL 0.5-2.5 MG/3 ML AMPUL NEB SCH ×4 (08:04→20:41)
[2017-09-26] MEDS: BUDESONIDE NEB 0.5 MG/2 ML AMPUL NEB SCH ×2 (08:04→20:41)
[2017-09-26] MEDS: ALPRAZOLAM 0.25 MG TABLET PO PRN ×2 (09:36→16:03)
[2017-09-26] MEDS: DOCUSATE SODIUM 100 MG CAPSULE PO SCH (09:37)
[2017-09-26] MEDS: LEVOFLOXACIN 750 MG TABLET PO SCH (09:37)
[2017-09-26] MEDS: AMLODIPINE BESYLATE 5 MG TABLET PO SCH (09:37)
[2017-09-26] MEDS: LISINOPRIL 10 MG TABLET PO SCH ×2 (09:37→21:31)
[2017-09-26] MEDS: GUAIFENESIN 600 MG TABLET.SA PO SCH ×2 (09:38→16:58)
[2017-09-26] MEDS: TORSEMIDE 20 MG TABLET PO SCH ×2 (09:42→16:58)
[2017-09-26] MEDS: MODAFINIL 100 MG TABLET PO SCH (09:43)
[2017-09-26] MEDS ORDERED: FUROSEMIDE 40 MG TABLET PO SCH (10:00)
[2017-09-26 13:20] LABS: PATH REVIEW PATHOLOGIST REVIEWED
--- NOTE | 2017-09-26 17:47 | PDOC PROGRESS REPORT ---
Subjective Progress Note for:: 09/26/17 Subjective:: Patient refers that she is still short of breath and she is thirsty. Review of systems All organ systems evaluated and negative except as in subjective All significant laboratories and diagnostics have been reviewed Reason For Visit: ACUTE ON CHRONIC RESPIRATORY FAILURE Physical Exam Vital Signs: Temp Pulse Resp BP Pulse Ox 98.5 F 48 L 18 144/75 H 99 09/26/17 08:13 09/26/17 08:13 09/26/17 08:13 09/26/17 08:13 09/26/17 08:13 Pulse Oximeter Continuous Start: 09/25/17 15: 25 Freq: RTQ4 Status: Active Document 09/26/17 04:00 STI (Rec: 09/26/17 06:03 STI [email or web address]__) Pulse Oximetry Assessment Oxygen Saturation (92-100) 98 Oxygen Delivery Method AVAP Fraction of Inspired Oxygen (FIO2) 35 Equipment Usage Equipment in Use Continuous SpO2 Machine # 7 Intake & Output 09/25/17 09/26/17 09/27/17 06:59 06:59 06:59 Intake Total 465 120 Output Total 2150 1450 Balance -1685 -1330 Weight 124.5 kg 124.8 kg General appearance: PRESENT: no acute distress, cooperative, morbidly obese Head exam: PRESENT: atraumatic, normocephalic Eye exam: PRESENT: conjunctiva pink, EOMI, PERRLA Ear exam: PRESENT: normal external ear exam, TM's normal bilaterally Mouth exam: PRESENT: moist Neck exam: PRESENT: full ROM. ABSENT: JVD, lymphadenopathy, tenderness Respiratory exam: PRESENT: clear to auscultation joel, decreased breath sounds Cardiovascular exam: PRESENT: RRR. ABSENT: diastolic murmur, systolic murmur Vascular exam: PRESENT: normal capillary refill GI/Abdominal exam: PRESENT: normal bowel sounds, soft. ABSENT: tenderness Extremities exam: ABSENT: full ROM Musculoskeletal exam: ABSENT: ambulatory - 3+ pitting edema bilaterally. Erythremia of left lower extremity improved Neurological exam: PRESENT: alert, awake, oriented to person, oriented to place , oriented to time, oriented to situation Psychiatric exam: PRESENT: depressed Skin exam: PRESENT: erythema Results Laboratory Results: 09/26/17 04:54 09/26/17 04:54 09/25/17 09/25/17 09/26/17 17:35 19:18 04:54 WBC 8.9 RBC 3.15 L Hgb 8.9 L Hct 28.0 L MCV 89 MCH 28.2 MCHC 31.7 L RDW 15.3 H Plt Count 357 Seg Neutrophils % Not Reportable Lymphocytes % Not Reportable Monocytes % Not Reportable Eosinophils % Not Reportable Basophils % Not Reportable Absolute Neutrophils Not Reportable Absolute Lymphocytes Not Reportable Absolute Monocytes Not Reportable Absolute Eosinophils Not Reportable Absolute Basophils Not Reportable Carbonic Acid 4.54 H 2.96 H HCO3/H2CO3 Ratio 14:1 19:1 ABG pH 7.26 L 7.40 ABG pCO2 150.7 H* 98.4 H* ABG pO2 194.8 H 56.6 L ABG HCO3 66.1 H 59.0 H ABG O2 Saturation 98.9 H 86.6 L ABG Base Excess 33.1 29.6 FiO2 50 35% Sodium Potassium Chloride Carbon Dioxide Anion Gap BUN Creatinine Est GFR ( Amer) Est GFR (Non-Af Amer) Glucose Calcium Magnesium 09/26/17 09/26/17 04:54 06:15 WBC RBC Hgb Hct MCV MCH MCHC RDW Plt Count Seg Neutrophils % Lymphocytes % Monocytes % Eosinophils % Basophils % Absolute Neutrophils Absolute Lymphocytes Absolute Monocytes Absolute Eosinophils Absolute Basophils Carbonic Acid 2.48 H HCO3/H2CO3 Ratio 21:1 ABG pH 7.42 ABG pCO2 82.3 H* ABG pO2 58.8 L ABG HCO3 52.4 H ABG O2 Saturation 89.2 L ABG Base Excess 24.2 FiO2 35% Sodium 140.7 Potassium 4.0 Chloride 84 L Carbon Dioxide 50 H* Anion Gap 7 BUN 28 H Creatinine 0.55 Est GFR ( Amer) > 60 Est GFR (Non-Af Amer) > 60 Glucose 203 H Calcium 9.5 Magnesium 1.9 09/23/17 23:00 Troponin I 0.137 Impressions: Chest X-Ray 09/23/17 14:16 IMPRESSION: Since the previous chest x-ray 09/10/2017 there has been a significant increase in diffuse infiltrate on the right and further increasing infiltrate and possible consolidation left lower lung zone. Assessment & Plan - Diagnosis (1) Acute on chronic diastolic (congestive) heart failure Is this a current diagnosis for this admission?: Yes Plan: Back to Lasix but to a lower dose by Dr. Sanders (2) Acute and chronic respiratory failure with hypercapnia Is this a current diagnosis for this admission?: Yes Plan: Patient on AVAPS. Gases improved (3) Morbid obesity with alveolar hypoventilation Is this a current diagnosis for this admission?: Yes Plan: Certainly contributing to presentation. Patient states that she had lost like around 100 pounds. (4) Diabetes mellitus type 2 in obese Is this a current diagnosis for this admission?: Yes Plan: Continue Humalog sliding scale and bedside glucose before meals and at bedtime (5) Hypothyroid Qualifiers: Hypothyroidism type: unspecified Qualified Code(s): E03.9 - Hypothyroidism , unspecified Is this a current diagnosis for this admission?: Yes Plan: Continue outpatient regimen (6) COPD (chronic obstructive pulmonary disease) with acute bronchitis Is this a current diagnosis for this admission?: Yes Plan: Continue DuoNeb, Mucinex, IV steroids and Levaquin (7) Cellulitis of leg, left Is this a current diagnosis for this admission?: Yes Plan: Continues improving (8) History of poliomyelitis Is this a current diagnosis for this admission?: Yes Plan: Patient has limited mobility therefore limiting her exercise capacity. Supportive (9) Anemia Qualifiers: Anemia type: unspecified type Qualified Code(s): D64.9 - Anemia, unspecified Is this a current diagnosis for this admission?: Yes Plan: Stable - Time Time Spent with patient: 15-24 minutes Medications reviewed and adjusted accordingly: Yes Anticipated discharge: Home with Homehealth Within: Other - Unable to tell how long will it take to stabilize respiratory status - Inpatient Certification Based on my medical assessment, after consideration of the patient's comorbidities, presenting symptoms, or acuity I expect that the services needed warrant INPATIENT care.: Yes I certify that my determination is in accordance with my understanding of Medicare's requirements for reasonable and necessary INPATIENT services [42 CFR 412.3e].: Yes Medical Necessity: Need Close Monitoring Due to Risk of Patient Decompensation, Need for Nebulizer Therapy and Monitoring of Response
[2017-09-27] MEDS: HEPARIN SOD (PORCINE) 5,000 UNIT/ML 1 ML SYRINGE SUBCUT SCH ×3 (05:12→21:08)
[2017-09-27] MEDS: METHYLPREDNISOLONE INJ 40 MG/1 ML SDV IV SCH ×2 (05:12→13:42)
[2017-09-27 05:33] LABS: HEMATOCRIT 26.3 % (36.0-47.0); HEMOGLOBIN 8.5 g/dL (12.0-15.5); MEAN CORPUSCULAR HEMOGLOBIN 28.3 pg (27.0-33.4); MEAN CORPUSCULAR HGB CONC 32.3 g/dL (32.0-36.0); MEAN CORPUSCULAR VOLUME 88 fl (80-97); PLATELET COUNT 337 10^3/uL (150-450); RED CELL DISTRIBUTION WIDTH 15.2 % (11.5-14.0); WHITE BLOOD COUNT 4.4 10^3/uL (4.0-10.5)
[2017-09-27 05:50] LABS: BLOOD UREA NITROGEN 33 mg/dL (7-20); CALCIUM 9.2 mg/dL (8.4-10.2); CHLORIDE 82 mmol/L (98-107); GLUCOSE 203 mg/dL (75-110); POTASSIUM 3.7 mmol/L (3.6-5.0); SODIUM 138.8 mmol/L (137-145)
[2017-09-27 06:01] LABS: ANION GAP 5 (5-19); CARBON DIOXIDE 52 mmol/L (22-30)
[2017-09-27 06:08] LABS: ABSOLUTE LYMPHOCYTES# (MANUAL) 0.1 10^3/uL (0.5-4.7); ABSOLUTE MONOCYTES # (MANUAL) 0.5 10^3/uL (0.1-1.4); ABSOLUTE NEUTROPHILS# (MANUAL) 3.8 10^3/uL (1.7-8.2); BAND NEUTROPHILS % (MANUAL) 1 % (3-5); BASOPHILS % (MANUAL) 0 % (0-2); EOSINOPHILS % (MANUAL) 0 % (0-6); LYMPHOCYTES % (MANUAL) 1 % (13-45); MONOCYTES % (MANUAL) 11 % (3-13); SEGMENTED NEUTROPHILS % (MAN) 86 % (42-78); TOTAL CELLS COUNTED 100
[2017-09-27 06:11] LABS: TOXIC GRANULATION SLIGHT
[2017-09-27 06:12] LABS: ANISOCYTOSIS SLIGHT; OVALOCYTES SLIGHT; PLATELET COMMENT ADEQUATE; POIKILOCYTOSIS SLIGHT; POLYCHROMASIA SLIGHT
[2017-09-27 06:14] LABS: ARTERIAL BLOOD BASE EXCESS 28.2 mmol/L; ARTERIAL BLOOD H2CO3 2.75 mmol/L (1.05-1.35); ARTERIAL BLOOD HCO3 57.6 mmol/L (20-26); ARTERIAL BLOOD O2 SATURATION 97.8 % (94-98); ARTERIAL BLOOD PH 7.42 (7.35-7.45); ARTERIAL BLOOD PO2 111.6 mmHg (80-100); ARTERIAL BLOOD TOTAL CO2 60.4 mmol/L (21-25)
[2017-09-27 06:22] LABS: ARTERIAL BLOOD FIO2 40%
[2017-09-27 06:23] LABS: ARTERIAL BLOOD PCO2 91.5 mmHg (35-45)
[2017-09-27] MEDS: IPRATROPIUM/ALBUTEROL 0.5-2.5 MG/3 ML AMPUL NEB SCH ×4 (08:42→20:01)
[2017-09-27] MEDS: BUDESONIDE NEB 0.5 MG/2 ML AMPUL NEB SCH ×2 (08:42→20:01)
[2017-09-27] MEDS: INSULIN GLARGINE,HUM.REC.ANLOG 300 UNIT/3 ML INSULN.PEN SUBCUT SCH (09:52)
[2017-09-27] MEDS: GUAIFENESIN 600 MG TABLET.SA PO SCH ×2 (09:53→18:50)
[2017-09-27] MEDS: LEVOFLOXACIN 750 MG TABLET PO SCH (09:53)
[2017-09-27] MEDS: DOCUSATE SODIUM 100 MG CAPSULE PO SCH (09:53)
[2017-09-27] MEDS: LISINOPRIL 10 MG TABLET PO SCH ×2 (09:53→21:08)
[2017-09-27] MEDS: INSULIN LISPRO 100 UNIT/ML 3 ML VIAL SUBCUT PRN ×3 (09:53→18:49)
[2017-09-27] MEDS: AMLODIPINE BESYLATE 5 MG TABLET PO SCH ×2 (09:54→18:50)
[2017-09-27] MEDS: TORSEMIDE 20 MG TABLET PO SCH ×2 (10:03→18:49)
[2017-09-27] MEDS: MODAFINIL 100 MG TABLET PO SCH (10:03)
--- NOTE | 2017-09-27 15:27 | PDOC PROGRESS REPORT ---
Subjective Progress Note for:: 09/27/17 Subjective:: Patient refers that her breathing is getting better and she still thirsty Review of systems All organ systems evaluated and negative except as in subjective All significant laboratories and diagnostics have been reviewed Reason For Visit: ACUTE ON CHRONIC RESPIRATORY FAILURE Physical Exam Vital Signs: Temp Pulse Resp BP Pulse Ox 98.9 F 91 27 H 142/64 H 90 L 09/27/17 04:10 09/27/17 04:10 09/27/17 04:10 09/27/17 04:10 09/27/17 04:10 Pulse Oximeter Continuous Start: 09/25/17 15: 25 Freq: RTQ4 Status: Active Document 09/27/17 03:36 EAL (Rec: 09/27/17 03:40 [email or web address] [email or web address]) Pulse Oximetry Assessment Oxygen Saturation (92-100) 100 Oxygen Delivery Method AVAP Fraction of Inspired Oxygen (FIO2) 40 Equipment Usage Equipment in Use Continuous Pulse Oximeter 24 Hour Charge Charge Now Continuous SpO2 Machine # 7 Intake & Output 09/26/17 09/27/17 09/28/17 06:59 06:59 06:59 Intake Total 120 618 Output Total 1450 1575 Balance -1330 -957 Weight 124.8 kg 123.4 kg General appearance: PRESENT: cooperative, morbidly obese Head exam: PRESENT: atraumatic, normocephalic Eye exam: PRESENT: conjunctiva pink, EOMI, PERRLA Ear exam: PRESENT: normal external ear exam, TM's normal bilaterally Mouth exam: PRESENT: moist, neck supple Neck exam: PRESENT: full ROM. ABSENT: JVD, lymphadenopathy, tenderness Respiratory exam: PRESENT: clear to auscultation joel, decreased breath sounds Cardiovascular exam: PRESENT: RRR. ABSENT: diastolic murmur, systolic murmur Vascular exam: PRESENT: normal capillary refill GI/Abdominal exam: PRESENT: normal bowel sounds, soft. ABSENT: tenderness Extremities exam: ABSENT: full ROM Musculoskeletal exam: PRESENT: deformity - 3+ edema. ABSENT: ambulatory Neurological exam: PRESENT: alert, awake, oriented to person, oriented to place , oriented to time, oriented to situation, CN II-XII grossly intact Psychiatric exam: PRESENT: appropriate affect, normal mood Skin exam: PRESENT: intact, normal color Results Laboratory Results: 09/27/17 04:49 09/27/17 04:49 09/27/17 09/27/17 09/27/17 04:49 04:49 06:04 WBC 4.4 RBC 3.00 L Hgb 8.5 L Hct 26.3 L MCV 88 MCH 28.3 MCHC 32.3 RDW 15.2 H Plt Count 337 Seg Neutrophils % Not Reportable Lymphocytes % Not Reportable Monocytes % Not Reportable Eosinophils % Not Reportable Basophils % Not Reportable Absolute Neutrophils Not Reportable Absolute Lymphocytes Not Reportable Absolute Monocytes Not Reportable Absolute Eosinophils Not Reportable Absolute Basophils Not Reportable Carbonic Acid 2.75 H HCO3/H2CO3 Ratio 20:1 ABG pH 7.42 ABG pCO2 91.5 H* ABG pO2 111.6 H ABG HCO3 57.6 H ABG O2 Saturation 97.8 ABG Base Excess 28.2 FiO2 40% Sodium 138.8 Potassium 3.7 Chloride 82 L Carbon Dioxide 52 H* Anion Gap 5 BUN 33 H Creatinine 0.64 Est GFR ( Amer) > 60 Est GFR (Non-Af Amer) > 60 Glucose 203 H Calcium 9.2 Magnesium 1.7 09/23/17 23:00 Troponin I 0.137 Impressions: Chest X-Ray 09/23/17 14:16 IMPRESSION: Since the previous chest x-ray 09/10/2017 there has been a significant increase in diffuse infiltrate on the right and further increasing infiltrate and possible consolidation left lower lung zone. Assessment & Plan - Diagnosis (1) Acute on chronic diastolic (congestive) heart failure Is this a current diagnosis for this admission?: Yes Plan: Place patient on the medics and will continue (2) Acute and chronic respiratory failure with hypercapnia Is this a current diagnosis for this admission?: Yes Plan: Patient on AVAPS. Gas is continued improving (3) Morbid obesity with alveolar hypoventilation Is this a current diagnosis for this admission?: Yes Plan: Certainly contributing to presentation. Patient states that she had lost like around 100 pounds. (4) Diabetes mellitus type 2 in obese Is this a current diagnosis for this admission?: Yes Plan: Continue Humalog sliding scale and bedside glucose before meals and at bedtime (5) Hypothyroid Qualifiers: Hypothyroidism type: unspecified Qualified Code(s): E03.9 - Hypothyroidism , unspecified Is this a current diagnosis for this admission?: Yes Plan: Continue outpatient regimen (6) COPD (chronic obstructive pulmonary disease) with acute bronchitis Is this a current diagnosis for this admission?: Yes Plan: Continue DuoNeb, Mucinex, IV steroids and Levaquin (7) Cellulitis of leg, left Is this a current diagnosis for this admission?: Yes Plan: Continues improving (8) History of poliomyelitis Is this a current diagnosis for this admission?: Yes Plan: Patient has limited mobility therefore limiting her exercise capacity. Supportive (9) Anemia Qualifiers: Anemia type: unspecified type Qualified Code(s): D64.9 - Anemia, unspecified Is this a current diagnosis for this admission?: Yes Plan: Stable (10) Sleep apnea Qualifiers: Sleep apnea type: obstructive Qualified Code(s): G47.33 - Obstructive sleep apnea (adult) (pediatric) Is this a current diagnosis for this admission?: Yes Plan: Continue AVAPS and Provigil - Time Time Spent with patient: 15-24 minutes Medications reviewed and adjusted accordingly: Yes Anticipated discharge: Home with Homehealth Within: within 72 hours - Inpatient Certification Based on my medical assessment, after consideration of the patient's comorbidities, presenting symptoms, or acuity I expect that the services needed warrant INPATIENT care.: Yes I certify that my determination is in accordance with my understanding of Medicare's requirements for reasonable and necessary INPATIENT services [42 CFR 412.3e].: Yes Medical Necessity: Need Close Monitoring Due to Risk of Patient Decompensation, Need For Continuous Telemetry Monitoring, Need for Nebulizer Therapy and Monitoring of Response
[2017-09-27] MEDS ORDERED: MODAFINIL 100 MG TABLET PO ONE (16:30)
[2017-09-27] MEDS ORDERED: PREDNISONE 20 MG TABLET PO ONE (20:39)
[2017-09-27] MEDS ORDERED: METHYLPREDNISOLONE INJ 40 MG/1 ML SDV IV SCH (22:00)
[2017-09-28] MEDS: HEPARIN SOD (PORCINE) 5,000 UNIT/ML 1 ML SYRINGE SUBCUT SCH ×3 (05:32→21:15)
[2017-09-28 06:42] LABS: ARTERIAL BLOOD BASE EXCESS 24.1 mmol/L; ARTERIAL BLOOD H2CO3 2.68 mmol/L (1.05-1.35); ARTERIAL BLOOD HCO3 53.2 mmol/L (20-26); ARTERIAL BLOOD O2 SATURATION 98.9 % (94-98); ARTERIAL BLOOD PH 7.39 (7.35-7.45); ARTERIAL BLOOD PO2 156.7 mmHg (80-100); ARTERIAL BLOOD TOTAL CO2 55.9 mmol/L (21-25)
[2017-09-28 06:43] LABS: ARTERIAL BLOOD FIO2 45%
[2017-09-28 06:44] LABS: ARTERIAL BLOOD PCO2 89.1 mmHg (35-45)
[2017-09-28] MEDS: BUDESONIDE NEB 0.5 MG/2 ML AMPUL NEB SCH ×2 (07:36→19:45)
[2017-09-28] MEDS: IPRATROPIUM/ALBUTEROL 0.5-2.5 MG/3 ML AMPUL NEB SCH ×4 (07:36→19:45)
[2017-09-28] MEDS: INSULIN LISPRO 100 UNIT/ML 3 ML VIAL SUBCUT PRN ×3 (09:58→23:05)
[2017-09-28] MEDS: PREDNISONE 20 MG TABLET PO SCH (09:58)
[2017-09-28] MEDS: GUAIFENESIN 600 MG TABLET.SA PO SCH ×2 (09:59→17:25)
[2017-09-28] MEDS: DOCUSATE SODIUM 100 MG CAPSULE PO SCH (09:59)
[2017-09-28] MEDS: LISINOPRIL 10 MG TABLET PO SCH ×2 (09:59→21:15)
[2017-09-28] MEDS: TORSEMIDE 20 MG TABLET PO SCH ×2 (10:00→17:26)
[2017-09-28] MEDS: MODAFINIL 100 MG TABLET PO SCH (10:00)
[2017-09-28] MEDS: LEVOFLOXACIN 750 MG TABLET PO SCH (10:00)
[2017-09-28] MEDS: INSULIN GLARGINE,HUM.REC.ANLOG 300 UNIT/3 ML INSULN.PEN SUBCUT SCH (10:07)
[2017-09-28] MEDS ORDERED: PROMETHAZINE HCL 25 MG TABLET PO PRN (11:10)
[2017-09-28] MEDS ORDERED: ONDANSETRON 4 MG TAB.RAPDIS PO PRN (11:10)
--- NOTE | 2017-09-28 11:21 | PDOC PROGRESS REPORT ---
Subjective Progress Note for:: 09/28/17 Subjective:: Patient refers that her breathing is better. Not feeling too thirsty. Review of systems All organ systems evaluated and negative except as in subjective All significant laboratories and diagnostics have been reviewed Reason For Visit: ACUTE ON CHRONIC RESPIRATORY FAILURE Physical Exam Vital Signs: Temp Pulse Resp BP Pulse Ox 99.3 F 72 18 128/56 H 100 09/27/17 23:25 09/28/17 02:00 09/28/17 03:45 09/27/17 23:25 09/28/17 03:45 Pulse Oximeter Continuous Start: 09/25/17 15: 25 Freq: RTQ4 Status: Active Document 09/28/17 03:45 CMI (Rec: 09/28/17 03:46 CMI [email or web address]) Pulse Oximetry Assessment Oxygen Saturation (92-100) 100 Oxygen Delivery Method Bi-pap Fraction of Inspired Oxygen (FIO2) 45 Equipment Usage Equipment in Use Continuous SpO2 Machine # 7 Intake & Output 09/27/17 09/28/17 09/29/17 06:59 06:59 06:59 Intake Total 618 899 Output Total 1575 1500 Balance -957 -601 Weight 123.4 kg 124 kg General appearance: PRESENT: cooperative, morbidly obese Head exam: PRESENT: atraumatic, normocephalic Eye exam: PRESENT: conjunctiva pink, EOMI, PERRLA Mouth exam: PRESENT: moist Neck exam: PRESENT: full ROM. ABSENT: JVD, lymphadenopathy, tenderness Respiratory exam: PRESENT: clear to auscultation joel Cardiovascular exam: PRESENT: RRR. ABSENT: diastolic murmur, systolic murmur Vascular exam: PRESENT: normal capillary refill GI/Abdominal exam: PRESENT: normal bowel sounds, soft. ABSENT: tenderness - 3+ edema Extremities exam: ABSENT: full ROM Musculoskeletal exam: ABSENT: ambulatory Neurological exam: PRESENT: alert, altered, awake, oriented to person, oriented to place, oriented to time, oriented to situation Psychiatric exam: PRESENT: appropriate affect, normal mood Skin exam: PRESENT: intact, normal color Results Laboratory Results: 09/27/17 04:49 09/27/17 04:49 09/28/17 06:16 Carbonic Acid 2.68 H HCO3/H2CO3 Ratio 19:1 ABG pH 7.39 ABG pCO2 89.1 H* ABG pO2 156.7 H ABG HCO3 53.2 H ABG O2 Saturation 98.9 H ABG Base Excess 24.1 FiO2 45% 09/23/17 23:00 Troponin I 0.137 Impressions: Chest X-Ray 09/23/17 14:16 IMPRESSION: Since the previous chest x-ray 09/10/2017 there has been a significant increase in diffuse infiltrate on the right and further increasing infiltrate and possible consolidation left lower lung zone. Assessment & Plan - Diagnosis (1) Acute on chronic diastolic (congestive) heart failure Is this a current diagnosis for this admission?: Yes Plan: Continue present management (2) Acute and chronic respiratory failure with hypercapnia Is this a current diagnosis for this admission?: Yes Plan: Patient on AVAPS. Blood gases improved since admission (3) Morbid obesity with alveolar hypoventilation Is this a current diagnosis for this admission?: Yes Plan: Certainly contributing to presentation. Patient states that she had lost like around 100 pounds. (4) Diabetes mellitus type 2 in obese Is this a current diagnosis for this admission?: Yes Plan: Continue Humalog sliding scale and bedside glucose before meals and at bedtime (5) Hypothyroid Qualifiers: Hypothyroidism type: unspecified Qualified Code(s): E03.9 - Hypothyroidism , unspecified Is this a current diagnosis for this admission?: Yes Plan: Continue outpatient regimen (6) COPD (chronic obstructive pulmonary disease) with acute bronchitis Is this a current diagnosis for this admission?: Yes Plan: Continue DuoNeb, Mucinex, IV steroids and Levaquin (7) Cellulitis of leg, left Is this a current diagnosis for this admission?: Yes Plan: Improved when compared to admission (8) History of poliomyelitis Is this a current diagnosis for this admission?: Yes Plan: Patient has limited mobility therefore limiting her exercise capacity. Supportive (9) Anemia Qualifiers: Anemia type: unspecified type Qualified Code(s): D64.9 - Anemia, unspecified Is this a current diagnosis for this admission?: Yes Plan: Stable (10) Sleep apnea Qualifiers: Sleep apnea type: obstructive Qualified Code(s): G47.33 - Obstructive sleep apnea (adult) (pediatric) Is this a current diagnosis for this admission?: Yes Plan: Continue AVAPS and Provigil - Time Time Spent with patient: 15-24 minutes Medications reviewed and adjusted accordingly: Yes Anticipated discharge: Other - Consult case management for LTAC Within: within 72 hours - Inpatient Certification Based on my medical assessment, after consideration of the patient's comorbidities, presenting symptoms, or acuity I expect that the services needed warrant INPATIENT care.: Yes I certify that my determination is in accordance with my understanding of Medicare's requirements for reasonable and necessary INPATIENT services [42 CFR 412.3e].: Yes Medical Necessity: Need Close Monitoring Due to Risk of Patient Decompensation, Need for Nebulizer Therapy and Monitoring of Response
[2017-09-28] MEDS: AMLODIPINE BESYLATE 5 MG TABLET PO SCH (17:25)
[2017-09-28] MEDS: FLUTICASONE/SALMETEROL DISKUS 500-50 MCG/DOSE IH SCH (17:26)
[2017-09-28] MEDS: ACETYLCYSTEINE 20% SOLN 800 MG/4 ML VIAL.NEB NEB SCH (19:46)
[2017-09-29] MEDS: FLUTICASONE/SALMETEROL DISKUS 500-50 MCG/DOSE IH SCH ×2 (05:56→17:34)
[2017-09-29] MEDS: HEPARIN SOD (PORCINE) 5,000 UNIT/ML 1 ML SYRINGE SUBCUT SCH ×3 (05:57→21:29)
[2017-09-29 06:25] LABS: ARTERIAL BLOOD HCO3 59.6 mmol/L (20-26); ARTERIAL BLOOD O2 SATURATION 79.1 % (94-98); ARTERIAL BLOOD PH 7.49 (7.35-7.45); ARTERIAL BLOOD PO2 42.8 mmHg (80-100)
[2017-09-29 06:29] LABS: ARTERIAL BLOOD FIO2 35%
[2017-09-29 06:33] LABS: ARTERIAL BLOOD PCO2 79.6 mmHg (35-45)
[2017-09-29] MEDS: IPRATROPIUM/ALBUTEROL 0.5-2.5 MG/3 ML AMPUL NEB SCH ×4 (08:06→19:33)
[2017-09-29] MEDS: BUDESONIDE NEB 0.5 MG/2 ML AMPUL NEB SCH (08:06)
[2017-09-29] MEDS: ACETYLCYSTEINE 20% SOLN 800 MG/4 ML VIAL.NEB NEB SCH ×2 (08:16→19:34)
[2017-09-29] MEDS: INSULIN GLARGINE,HUM.REC.ANLOG 300 UNIT/3 ML INSULN.PEN SUBCUT SCH (10:44)
[2017-09-29] MEDS: TORSEMIDE 20 MG TABLET PO SCH ×2 (10:44→17:33)
[2017-09-29] MEDS: GUAIFENESIN 600 MG TABLET.SA PO SCH ×2 (10:44→17:34)
[2017-09-29] MEDS: LEVOFLOXACIN 750 MG TABLET PO SCH (10:44)
[2017-09-29] MEDS: LISINOPRIL 10 MG TABLET PO SCH ×2 (10:46→21:29)
[2017-09-29] MEDS: MODAFINIL 100 MG TABLET PO SCH (10:47)
[2017-09-29] MEDS: PREDNISONE 20 MG TABLET PO SCH (10:47)
[2017-09-29] MEDS: DOCUSATE SODIUM 100 MG CAPSULE PO SCH (10:48)
--- NOTE | 2017-09-29 16:46 | PDOC PROGRESS REPORT ---
Subjective Progress Note for:: 09/29/17 Subjective:: Patient refers that her breathing is better. Review of systems All organ systems evaluated and negative except as in subjective All significant laboratories and diagnostics have been reviewed Reason For Visit: ACUTE ON CHRONIC RESPIRATORY FAILURE Physical Exam Vital Signs: Temp Pulse Resp BP Pulse Ox 98.7 F 69 29 H 135/54 H 96 09/29/17 04:06 09/29/17 04:06 09/29/17 04:30 09/29/17 04:06 09/29/17 04:30 Pulse Oximeter Continuous Start: 09/25/17 15: 25 Freq: RTQ4 Status: Active Document 09/29/17 04:30 EAL (Rec: 09/29/17 04:31 EAL [email or web address]) Pulse Oximetry Assessment Oxygen Saturation (92-100) 96 Oxygen Delivery Method AVAP Fraction of Inspired Oxygen (FIO2) 35 Equipment Usage Equipment in Use Continuous SpO2 Machine # 7 Intake & Output 09/28/17 09/29/17 09/30/17 06:59 06:59 06:59 Intake Total 899 833 Output Total 2200 1000 Balance -1301 -167 Weight 124 kg 119.1 kg General appearance: PRESENT: cooperative, morbidly obese Head exam: PRESENT: atraumatic, normocephalic Eye exam: PRESENT: conjunctiva pink, EOMI, PERRLA. ABSENT: periorbital swelling Ear exam: PRESENT: normal external ear exam Mouth exam: PRESENT: moist Neck exam: PRESENT: full ROM. ABSENT: JVD, lymphadenopathy, tenderness Respiratory exam: PRESENT: clear to auscultation joel Cardiovascular exam: PRESENT: RRR. ABSENT: diastolic murmur, systolic murmur Vascular exam: PRESENT: normal capillary refill GI/Abdominal exam: PRESENT: normal bowel sounds, soft. ABSENT: tenderness Extremities exam: PRESENT: full ROM. ABSENT: pedal edema Musculoskeletal exam: ABSENT: ambulatory Neurological exam: PRESENT: alert, awake, oriented to person, oriented to place , oriented to time, oriented to situation, CN II-XII grossly intact Psychiatric exam: PRESENT: appropriate affect, normal mood Skin exam: PRESENT: erythema, normal color. ABSENT: intact Results Laboratory Results: 09/27/17 04:49 09/27/17 04:49 09/29/17 05:55 Carbonic Acid 2.40 H HCO3/H2CO3 Ratio 24:1 ABG pH 7.49 H ABG pCO2 79.6 H* ABG pO2 42.8 L ABG HCO3 59.6 H ABG O2 Saturation 79.1 L ABG Base Excess 31.0 FiO2 35% 09/23/17 23:00 Troponin I 0.137 Impressions: Chest X-Ray 09/23/17 14:16 IMPRESSION: Since the previous chest x-ray 09/10/2017 there has been a significant increase in diffuse infiltrate on the right and further increasing infiltrate and possible consolidation left lower lung zone. Assessment & Plan - Diagnosis (1) Acute on chronic diastolic (congestive) heart failure Is this a current diagnosis for this admission?: Yes Plan: Continue present management (2) Acute and chronic respiratory failure with hypercapnia Is this a current diagnosis for this admission?: Yes Plan: Patient on AVAPS. Blood gases improved since admission (3) Morbid obesity with alveolar hypoventilation Is this a current diagnosis for this admission?: Yes Plan: Certainly contributing to presentation. Patient states that she had lost like around 100 pounds. (4) Diabetes mellitus type 2 in obese Is this a current diagnosis for this admission?: Yes Plan: Continue Humalog sliding scale and bedside glucose before meals and at bedtime (5) Hypothyroid Qualifiers: Hypothyroidism type: unspecified Qualified Code(s): E03.9 - Hypothyroidism , unspecified Is this a current diagnosis for this admission?: Yes Plan: Continue outpatient regimen (6) COPD (chronic obstructive pulmonary disease) with acute bronchitis Is this a current diagnosis for this admission?: Yes Plan: Continue DuoNeb, Mucinex and levaquin. To decrease oral steroids (7) Cellulitis of leg, left Is this a current diagnosis for this admission?: Yes Plan: Continue improving (8) History of poliomyelitis Is this a current diagnosis for this admission?: Yes Plan: Patient has limited mobility therefore limiting her exercise capacity. Supportive (9) Anemia Qualifiers: Anemia type: unspecified type Qualified Code(s): D64.9 - Anemia, unspecified Is this a current diagnosis for this admission?: Yes Plan: Stable (10) Sleep apnea Qualifiers: Sleep apnea type: obstructive Qualified Code(s): G47.33 - Obstructive sleep apnea (adult) (pediatric) Is this a current diagnosis for this admission?: Yes Plan: Continue AVAPS and Provigil - Time Time Spent with patient: 15-24 minutes Medications reviewed and adjusted accordingly: Yes Anticipated discharge: Home with Homehealth Within: within 72 hours - Inpatient Certification Based on my medical assessment, after consideration of the patient's comorbidities, presenting symptoms, or acuity I expect that the services needed warrant INPATIENT care.: Yes I certify that my determination is in accordance with my understanding of Medicare's requirements for reasonable and necessary INPATIENT services [42 CFR 412.3e].: Yes Medical Necessity: Need Close Monitoring Due to Risk of Patient Decompensation, Need for Nebulizer Therapy and Monitoring of Response
[2017-09-29] MEDS: AMLODIPINE BESYLATE 5 MG TABLET PO SCH (17:34)
[2017-09-29] MEDS: INSULIN LISPRO 100 UNIT/ML 3 ML VIAL SUBCUT PRN ×2 (19:32→22:29)
[2017-09-29] MEDS: ALPRAZOLAM 0.25 MG TABLET PO PRN (21:29)
[2017-09-30] MEDS: FLUTICASONE/SALMETEROL DISKUS 500-50 MCG/DOSE IH SCH ×2 (05:43→17:49)
[2017-09-30] MEDS: HEPARIN SOD (PORCINE) 5,000 UNIT/ML 1 ML SYRINGE SUBCUT SCH ×3 (05:43→21:33)
[2017-09-30 07:11] LABS: ALANINE AMINOTRANSFERASE 50 U/L (9-52); ALBUMIN 3.5 g/dL (3.5-5.0); ALKALINE PHOSPHATASE 58 U/L (38-126); ASPARTATE AMINO TRANSFERASE 64 U/L (14-36); BILIRUBIN,DIRECT 0.2 mg/dL (0.0-0.4); BILIRUBIN,TOTAL 0.5 mg/dL (0.2-1.3); BLOOD UREA NITROGEN 43 mg/dL (7-20); CALCIUM 8.5 mg/dL (8.4-10.2); CHLORIDE 82 mmol/L (98-107); GLUCOSE 72 mg/dL (75-110); SODIUM 143.1 mmol/L (137-145)
[2017-09-30 07:26] LABS: ANION GAP 6 (5-19)
[2017-09-30 07:28] LABS: POTASSIUM 2.9 mmol/L (3.6-5.0)
[2017-09-30 07:29] LABS: CARBON DIOXIDE 55 mmol/L (22-30)
[2017-09-30] MEDS: ACETYLCYSTEINE 20% SOLN 800 MG/4 ML VIAL.NEB NEB SCH ×2 (08:01→20:36)
[2017-09-30] MEDS: IPRATROPIUM/ALBUTEROL 0.5-2.5 MG/3 ML AMPUL NEB SCH (08:01)
[2017-09-30] MEDS: DOCUSATE SODIUM 100 MG CAPSULE PO SCH (09:51)
[2017-09-30] MEDS: POTASSIUM CHLORIDE 10 MEQ TABLET.SA PO SCH ×3 (09:52→17:49)
[2017-09-30] MEDS: MAGNESIUM OXIDE 400 MG TABLET PO SCH ×2 (09:53→17:51)
[2017-09-30] MEDS: MODAFINIL 100 MG TABLET PO SCH (09:54)
[2017-09-30] MEDS: LISINOPRIL 10 MG TABLET PO SCH (09:55)
[2017-09-30] MEDS: LEVOFLOXACIN 750 MG TABLET PO SCH (09:55)
[2017-09-30] MEDS: GUAIFENESIN 600 MG TABLET.SA PO SCH ×2 (09:55→17:50)
[2017-09-30] MEDS: TORSEMIDE 20 MG TABLET PO SCH ×2 (09:56→18:15)
[2017-09-30] MEDS: PREDNISONE 20 MG TABLET PO SCH (09:56)
[2017-09-30] MEDS: INSULIN GLARGINE,HUM.REC.ANLOG 300 UNIT/3 ML INSULN.PEN SUBCUT SCH (10:03)
[2017-09-30] MEDS ORDERED: TIOTROPIUM BROMIDE DPI 5 CAP/KIT (18 MCG/CAP) IH ONE (13:00)
--- NOTE | 2017-09-30 14:24 | PDOC PROGRESS REPORT ---
Subjective Progress Note for:: 09/30/17 Subjective:: Patient refers that has been using the bipap off/on. Review of systems All organ systems evaluated and negative except as in subjective All significant laboratories and diagnostics have been reviewed Reason For Visit: ACUTE ON CHRONIC RESPIRATORY FAILURE Physical Exam Vital Signs: Temp Pulse Resp BP Pulse Ox 99.2 F 70 30 H 112/71 93 09/30/17 03:20 09/30/17 03:20 09/30/17 03:20 09/30/17 03:20 09/30/17 03:20 Pulse Oximeter Continuous Start: 09/25/17 15: 25 Freq: RTQ4 Status: Complete Document 09/29/17 08:16 JDR (Rec: 09/29/17 08:20 [email or web address] [email or web address]) Pulse Oximetry Assessment Oxygen Saturation (92-100) 97 Oxygen Delivery Method AVAP Equipment Usage Equipment in Use Continuous SpO2 Machine # 7 Intake & Output 09/29/17 09/30/17 10/01/17 06:59 06:59 06:59 Intake Total 833 2355 Output Total 1000 Balance -167 2355 Weight 119.1 kg 120.6 kg General appearance: PRESENT: cooperative, morbidly obese Head exam: PRESENT: atraumatic, normocephalic Eye exam: PRESENT: conjunctiva pink, EOMI, PERRLA Ear exam: PRESENT: normal external ear exam Neck exam: PRESENT: full ROM. ABSENT: JVD, lymphadenopathy, tenderness Respiratory exam: PRESENT: clear to auscultation joel, decreased breath sounds Cardiovascular exam: PRESENT: RRR. ABSENT: diastolic murmur, systolic murmur Vascular exam: PRESENT: normal capillary refill GI/Abdominal exam: PRESENT: normal bowel sounds, soft. ABSENT: tenderness Extremities exam: PRESENT: other - #+ edema. ABSENT: full ROM Musculoskeletal exam: ABSENT: ambulatory Neurological exam: PRESENT: alert, awake, oriented to person, other - appears tricia confused Skin exam: PRESENT: intact, normal color Results Laboratory Results: 09/27/17 04:49 09/23/17 23:00 Troponin I 0.137 Impressions: Chest X-Ray 09/23/17 14:16 IMPRESSION: Since the previous chest x-ray 09/10/2017 there has been a significant increase in diffuse infiltrate on the right and further increasing infiltrate and possible consolidation left lower lung zone. Assessment & Plan - Diagnosis (1) Acute on chronic diastolic (congestive) heart failure Is this a current diagnosis for this admission?: Yes Plan: Continue present management (2) Acute and chronic respiratory failure with hypercapnia Is this a current diagnosis for this admission?: Yes Plan: Patient on AVAPS. Blood gases improved since admission (3) Morbid obesity with alveolar hypoventilation Is this a current diagnosis for this admission?: Yes Plan: Certainly contributing to presentation. Patient states that she had lost like around 100 pounds. (4) Diabetes mellitus type 2 in obese Is this a current diagnosis for this admission?: Yes Plan: Continue Humalog sliding scale and bedside glucose before meals and at bedtime (5) Hypothyroid Qualifiers: Hypothyroidism type: unspecified Qualified Code(s): E03.9 - Hypothyroidism , unspecified Is this a current diagnosis for this admission?: Yes Plan: Continue outpatient regimen (6) COPD (chronic obstructive pulmonary disease) with acute bronchitis Is this a current diagnosis for this admission?: Yes Plan: Continue DuoNeb, Mucinex and levaquin. To decrease oral steroids (7) Cellulitis of leg, left Is this a current diagnosis for this admission?: Yes Plan: Continue improving (8) History of poliomyelitis Is this a current diagnosis for this admission?: Yes Plan: Patient has limited mobility therefore limiting her exercise capacity. Supportive (9) Anemia Qualifiers: Anemia type: unspecified type Qualified Code(s): D64.9 - Anemia, unspecified Is this a current diagnosis for this admission?: Yes Plan: Stable (10) Sleep apnea Qualifiers: Sleep apnea type: obstructive Qualified Code(s): G47.33 - Obstructive sleep apnea (adult) (pediatric) Is this a current diagnosis for this admission?: Yes (11) Hypokalemia Is this a current diagnosis for this admission?: Yes Plan: Replace orally and trend (12) Hypomagnesemia Is this a current diagnosis for this admission?: Yes Plan: Replaced and trend (13) Encephalopathy Is this a current diagnosis for this admission?: Yes Plan: Appears to be confused today. To order an ABG and ammonia level - Time Time Spent with patient: 15-24 minutes Medications reviewed and adjusted accordingly: Yes Anticipated discharge: Home with Homehealth Within: within 72 hours - Inpatient Certification Based on my medical assessment, after consideration of the patient's comorbidities, presenting symptoms, or acuity I expect that the services needed warrant INPATIENT care.: Yes I certify that my determination is in accordance with my understanding of Medicare's requirements for reasonable and necessary INPATIENT services [42 CFR 412.3e].: Yes Medical Necessity: Need Close Monitoring Due to Risk of Patient Decompensation - Bipap/AVAPS
[2017-09-30 17:44] LABS: ARTERIAL BLOOD BASE EXCESS 26.7 mmol/L; ARTERIAL BLOOD H2CO3 2.48 mmol/L (1.05-1.35); ARTERIAL BLOOD HCO3 54.8 mmol/L (20-26); ARTERIAL BLOOD PH 7.44 (7.35-7.45); ARTERIAL BLOOD TOTAL CO2 57.3 mmol/L (21-25)
[2017-09-30 18:05] LABS: ARTERIAL BLOOD FIO2 4L; ARTERIAL BLOOD PCO2 82.5 mmHg (35-45)
[2017-09-30] MEDS: AMLODIPINE BESYLATE 5 MG TABLET PO SCH (18:15)
[2017-09-30] MEDS: IPRATROPIUM/ALBUTEROL 0.5-2.5 MG/3 ML AMPUL NEB PRN (20:36)
[2017-09-30] MEDS: INSULIN LISPRO 100 UNIT/ML 3 ML VIAL SUBCUT PRN (23:08)
[2017-10-01] MEDS: HEPARIN SOD (PORCINE) 5,000 UNIT/ML 1 ML SYRINGE SUBCUT SCH ×3 (05:16→21:22)
[2017-10-01] MEDS: FLUTICASONE/SALMETEROL DISKUS 500-50 MCG/DOSE IH SCH ×2 (05:16→17:12)
[2017-10-01 06:06] LABS: BLOOD UREA NITROGEN 55 mg/dL (7-20); CALCIUM 8.6 mg/dL (8.4-10.2); CHLORIDE 87 mmol/L (98-107); GLUCOSE 70 mg/dL (75-110)
[2017-10-01 06:20] LABS: ANION GAP 5 (5-19); POTASSIUM 4.3 mmol/L (3.6-5.0)
[2017-10-01 06:21] LABS: CARBON DIOXIDE 50 mmol/L (22-30)
[2017-10-01] MEDS: ACETYLCYSTEINE 20% SOLN 800 MG/4 ML VIAL.NEB NEB SCH ×2 (07:59→20:12)
[2017-10-01] MEDS: IPRATROPIUM/ALBUTEROL 0.5-2.5 MG/3 ML AMPUL NEB PRN ×2 (07:59→20:12)
[2017-10-01] MEDS: INSULIN GLARGINE,HUM.REC.ANLOG 300 UNIT/3 ML INSULN.PEN SUBCUT SCH (09:45)
[2017-10-01] MEDS: PREDNISONE 20 MG TABLET PO SCH (09:46)
[2017-10-01] MEDS: DOCUSATE SODIUM 100 MG CAPSULE PO SCH (09:46)
[2017-10-01] MEDS: MODAFINIL 100 MG TABLET PO SCH (09:46)
[2017-10-01] MEDS: MAGNESIUM OXIDE 400 MG TABLET PO SCH ×2 (09:46→17:12)
[2017-10-01] MEDS: GUAIFENESIN 600 MG TABLET.SA PO SCH ×2 (09:46→17:13)
[2017-10-01] MEDS: TIOTROPIUM BROMIDE DPI 5 CAP/KIT (18 MCG/CAP) IH SCH (09:47)
[2017-10-01] MEDS: INSULIN LISPRO 100 UNIT/ML 3 ML VIAL SUBCUT PRN ×2 (16:21→23:13)
[2017-10-01] MEDS ORDERED: PREDNISONE 20 MG TABLET PO SCH (17:36)
--- NOTE | 2017-10-01 17:40 | PDOC PROGRESS REPORT ---
Subjective Progress Note for:: 10/01/17 Subjective:: No complaints voiced today Review of systems All organ systems evaluated and negative except as in subjective All significant laboratories and diagnostics have been reviewed Reason For Visit: ACUTE ON CHRONIC RESPIRATORY FAILURE Physical Exam Vital Signs: Temp Pulse Resp BP Pulse Ox 99.0 F 71 26 H 106/39 L 96 10/01/17 04:41 10/01/17 04:41 10/01/17 04:41 10/01/17 04:41 10/01/17 04:41 Pulse Oximeter Continuous Start: 09/25/17 15: 25 Freq: RTQ4 Status: Complete Document 09/29/17 08:16 JDR (Rec: 09/29/17 08:20 [email or web address] [email or web address]) Pulse Oximetry Assessment Oxygen Saturation (92-100) 97 Oxygen Delivery Method AVAP Equipment Usage Equipment in Use Continuous SpO2 Machine # 7 Intake & Output 09/29/17 09/30/17 10/01/17 06:59 06:59 06:59 Intake Total 833 2855 477 Output Total 1000 0 Balance -167 2855 477 Weight 119.1 kg 120.6 kg Results Laboratory Results: 09/27/17 04:49 10/01/17 05:05 09/30/17 09/30/17 09/30/17 05:55 14:55 17:30 Carbonic Acid 2.48 H HCO3/H2CO3 Ratio 22:1 ABG pH 7.44 ABG pCO2 82.5 H* ABG pO2 159.0 H ABG HCO3 54.8 H ABG O2 Saturation 99.0 H ABG Base Excess 26.7 FiO2 4L Sodium 143.1 Potassium 2.9 L* Chloride 82 L Carbon Dioxide 55 H* Anion Gap 6 BUN 43 H Creatinine 0.83 Est GFR ( Amer) > 60 Est GFR (Non-Af Amer) > 60 Glucose 72 L Calcium 8.5 Magnesium 1.6 Total Bilirubin 0.5 AST 64 H ALT 50 Alkaline Phosphatase 58 Ammonia < 8.7 L Total Protein 6.0 L Albumin 3.5 10/01/17 05:05 Carbonic Acid HCO3/H2CO3 Ratio ABG pH ABG pCO2 ABG pO2 ABG HCO3 ABG O2 Saturation ABG Base Excess FiO2 Sodium 142.0 Potassium 4.3 D Chloride 87 L Carbon Dioxide 50 H* Anion Gap 5 BUN 55 H Creatinine 1.00 Est GFR ( Amer) > 60 Est GFR (Non-Af Amer) 54 L Glucose 70 L Calcium 8.6 Magnesium 1.8 Total Bilirubin AST ALT Alkaline Phosphatase Ammonia Total Protein Albumin 09/23/17 23:00 Troponin I 0.137 Impressions: Chest X-Ray 09/23/17 14:16 IMPRESSION: Since the previous chest x-ray 09/10/2017 there has been a significant increase in diffuse infiltrate on the right and further increasing infiltrate and possible consolidation left lower lung zone. Assessment & Plan - Diagnosis (1) Acute on chronic diastolic (congestive) heart failure Is this a current diagnosis for this admission?: Yes Plan: Will hold off diuresis for his blood pressure on the lower side. We will adjust antihypertensive medication for the same purpose. Hydrate gently since he may be on the dry side now (2) Acute and chronic respiratory failure with hypercapnia Is this a current diagnosis for this admission?: Yes Plan: Patient on AVAPS. Blood gases improved since admission. Continues requiring use of BiPAP quite regularly (3) Morbid obesity with alveolar hypoventilation Is this a current diagnosis for this admission?: Yes Plan: Certainly contributing to presentation. Patient states that she had lost like around 100 pounds. (4) Diabetes mellitus type 2 in obese Is this a current diagnosis for this admission?: Yes Plan: Continue Humalog sliding scale and bedside glucose before meals and at bedtime (5) Hypothyroid Qualifiers: Hypothyroidism type: unspecified Qualified Code(s): E03.9 - Hypothyroidism , unspecified Is this a current diagnosis for this admission?: Yes Plan: Continue outpatient regimen (6) COPD (chronic obstructive pulmonary disease) with acute bronchitis Is this a current diagnosis for this admission?: Yes Plan: Continue DuoNeb, Mucinex and levaquin. To decrease oral steroids (7) Cellulitis of leg, left Is this a current diagnosis for this admission?: Yes Plan: Resolved (8) History of poliomyelitis Is this a current diagnosis for this admission?: Yes Plan: Patient has limited mobility therefore limiting her exercise capacity. Supportive (9) Anemia Qualifiers: Anemia type: unspecified type Qualified Code(s): D64.9 - Anemia, unspecified Is this a current diagnosis for this admission?: Yes Plan: Stable (10) Sleep apnea Qualifiers: Sleep apnea type: obstructive Qualified Code(s): G47.33 - Obstructive sleep apnea (adult) (pediatric) Is this a current diagnosis for this admission?: Yes Plan: Continue AVAPS and discontinue Provigil since it does not appear to be helping her out (11) Hypokalemia Is this a current diagnosis for this admission?: Yes Plan: Replaced (12) Hypomagnesemia Is this a current diagnosis for this admission?: Yes Plan: Replaced. (13) Encephalopathy Is this a current diagnosis for this admission?: Yes Plan: Continues been an issue. - Time Time Spent with patient: 15-24 minutes Medications reviewed and adjusted accordingly: Yes Anticipated discharge: Home with Homehealth Within: within 72 hours - Inpatient Certification Based on my medical assessment, after consideration of the patient's comorbidities, presenting symptoms, or acuity I expect that the services needed warrant INPATIENT care.: Yes I certify that my determination is in accordance with my understanding of Medicare's requirements for reasonable and necessary INPATIENT services [42 CFR 412.3e].: Yes Medical Necessity: Need Close Monitoring Due to Risk of Patient Decompensation
[2017-10-01] MEDS: NORMAL SALINE 1000 ML 1,000 ML IV PRN (20:09)
[2017-10-01] MEDS ORDERED: NORMAL SALINE 500 ML IV ONE (23:45)
[2017-10-02] MEDS: NORMAL SALINE 1000 ML 1,000 ML IV PRN (02:54)
[2017-10-02] MEDS: FLUTICASONE/SALMETEROL DISKUS 500-50 MCG/DOSE IH SCH ×2 (05:19→17:26)
[2017-10-02] MEDS: HEPARIN SOD (PORCINE) 5,000 UNIT/ML 1 ML SYRINGE SUBCUT SCH ×3 (05:19→23:39)
[2017-10-02 05:56] LABS: HEMATOCRIT 27.1 % (36.0-47.0); HEMOGLOBIN 8.7 g/dL (12.0-15.5); MEAN CORPUSCULAR HEMOGLOBIN 28.2 pg (27.0-33.4); MEAN CORPUSCULAR HGB CONC 32.3 g/dL (32.0-36.0); MEAN CORPUSCULAR VOLUME 88 fl (80-97); PLATELET COUNT 283 10^3/uL (150-450); RED CELL DISTRIBUTION WIDTH 16.1 % (11.5-14.0); WHITE BLOOD COUNT 8.4 10^3/uL (4.0-10.5)
[2017-10-02 05:58] LABS: BLOOD UREA NITROGEN 46 mg/dL (7-20); CALCIUM 8.3 mg/dL (8.4-10.2); CHLORIDE 91 mmol/L (98-107); GLUCOSE 64 mg/dL (75-110); POTASSIUM 3.6 mmol/L (3.6-5.0); SODIUM 140.6 mmol/L (137-145)
[2017-10-02 06:10] LABS: ANION GAP 5 (5-19)
[2017-10-02 06:12] LABS: CARBON DIOXIDE 45 mmol/L (22-30)
[2017-10-02 06:21] LABS: ABSOLUTE LYMPHOCYTES# (MANUAL) 0.8 10^3/uL (0.5-4.7); ABSOLUTE MONOCYTES # (MANUAL) 0.5 10^3/uL (0.1-1.4); BAND NEUTROPHILS % (MANUAL) 3 % (3-5); BASOPHILS % (MANUAL) 0 % (0-2); EOSINOPHILS % (MANUAL) 2 % (0-6); LYMPHOCYTES % (MANUAL) 9 % (13-45); MONOCYTES % (MANUAL) 6 % (3-13); SEGMENTED NEUTROPHILS % (MAN) 80 % (42-78); TOTAL CELLS COUNTED 100
[2017-10-02 06:22] LABS: ANISOCYTOSIS 1+; TOXIC GRANULATION SLIGHT
[2017-10-02 06:23] LABS: PLATELET COMMENT ADEQUATE
[2017-10-02] MEDS: IPRATROPIUM/ALBUTEROL 0.5-2.5 MG/3 ML AMPUL NEB PRN ×2 (08:18→21:33)
[2017-10-02] MEDS: ACETYLCYSTEINE 20% SOLN 800 MG/4 ML VIAL.NEB NEB SCH ×2 (08:19→21:32)
[2017-10-02] MEDS: INSULIN GLARGINE,HUM.REC.ANLOG 300 UNIT/3 ML INSULN.PEN SUBCUT SCH (09:52)
[2017-10-02] MEDS: DOCUSATE SODIUM 100 MG CAPSULE PO SCH (09:52)
[2017-10-02] MEDS: GUAIFENESIN 600 MG TABLET.SA PO SCH ×2 (09:53→17:25)
[2017-10-02] MEDS: MAGNESIUM OXIDE 400 MG TABLET PO SCH ×2 (09:53→17:25)
[2017-10-02] MEDS: TIOTROPIUM BROMIDE DPI 5 CAP/KIT (18 MCG/CAP) IH SCH (09:53)
--- NOTE | 2017-10-02 17:19 | PDOC PROGRESS REPORT ---
Subjective Progress Note for:: 10/02/17 Subjective:: Patient relates that her breathing is better. Review of systems All organ systems evaluated and negative except as in subjective All significant laboratories and diagnostics have been reviewed Reason For Visit: ACUTE ON CHRONIC RESPIRATORY FAILURE Physical Exam Vital Signs: Temp Pulse Resp BP Pulse Ox 98.6 F 68 23 H 134/95 H 94 10/02/17 04:06 10/02/17 04:06 10/02/17 04:27 10/02/17 04:06 10/02/17 04:27 Pulse Oximeter Continuous Start: 09/25/17 15: 25 Freq: RTQ4 Status: Complete Document 09/29/17 08:16 JDR (Rec: 09/29/17 08:20 JDR [email or web address]) Pulse Oximetry Assessment Oxygen Saturation (92-100) 97 Oxygen Delivery Method AVAP Equipment Usage Equipment in Use Continuous SpO2 Machine # 7 Intake & Output 09/30/17 10/01/17 10/02/17 06:59 06:59 06:59 Intake Total 2855 577 1682 Output Total 0 0 Balance 2855 577 1682 Weight 120.6 kg 120.7 kg 120 kg General appearance: PRESENT: cooperative, morbidly obese Head exam: PRESENT: atraumatic, normocephalic Eye exam: PRESENT: conjunctiva pink, EOMI, PERRLA Ear exam: PRESENT: normal external ear exam Mouth exam: PRESENT: moist Neck exam: PRESENT: full ROM. ABSENT: JVD, lymphadenopathy, tenderness Respiratory exam: PRESENT: clear to auscultation joel, decreased breath sounds Cardiovascular exam: PRESENT: RRR. ABSENT: diastolic murmur, systolic murmur Vascular exam: PRESENT: normal capillary refill GI/Abdominal exam: PRESENT: normal bowel sounds, soft. ABSENT: tenderness Extremities exam: PRESENT: +2 edema. ABSENT: full ROM Musculoskeletal exam: ABSENT: ambulatory Neurological exam: PRESENT: alert, awake, oriented to person, oriented to place , oriented to time, oriented to situation, CN II-XII grossly intact Psychiatric exam: PRESENT: appropriate affect, normal mood - Redness of left lower extremity resolving Results Laboratory Results: 10/02/17 04:56 10/02/17 04:56 10/02/17 10/02/17 04:56 04:56 WBC 8.4 RBC 3.10 L Hgb 8.7 L Hct 27.1 L MCV 88 MCH 28.2 MCHC 32.3 RDW 16.1 H Plt Count 283 Seg Neutrophils % Not Reportable Lymphocytes % Not Reportable Monocytes % Not Reportable Eosinophils % Not Reportable Basophils % Not Reportable Absolute Neutrophils Not Reportable Absolute Lymphocytes Not Reportable Absolute Monocytes Not Reportable Absolute Eosinophils Not Reportable Absolute Basophils Not Reportable Sodium 140.6 Potassium 3.6 Chloride 91 L Carbon Dioxide 45 H* Anion Gap 5 BUN 46 H Creatinine 0.83 Est GFR ( Amer) > 60 Est GFR (Non-Af Amer) > 60 Glucose 64 L Calcium 8.3 L Magnesium 2.0 09/23/17 23:00 Troponin I 0.137 Impressions: Chest X-Ray 09/23/17 14:16 IMPRESSION: Since the previous chest x-ray 09/10/2017 there has been a significant increase in diffuse infiltrate on the right and further increasing infiltrate and possible consolidation left lower lung zone. Assessment & Plan - Diagnosis (1) Acute on chronic diastolic (congestive) heart failure Is this a current diagnosis for this admission?: Yes Plan: Continue holding off diuresis since her blood pressure on the lower side. Antihypertensive medication adjusted for the same purpose. Continue hydrating gently since he may be on the dry side now (2) Acute and chronic respiratory failure with hypercapnia Is this a current diagnosis for this admission?: Yes Plan: Patient on AVAPS. Blood gases improved since admission. Continues requiring use of BiPAP quite regularly. While observing this patient I think there is also an anxiety component that is also playing a major role on her complaints of dyspnea (3) Morbid obesity with alveolar hypoventilation Is this a current diagnosis for this admission?: Yes Plan: Certainly contributing to presentation. Patient states that she had lost like around 100 pounds. (4) Diabetes mellitus type 2 in obese Is this a current diagnosis for this admission?: Yes Plan: Continue Humalog sliding scale and bedside glucose before meals and at bedtime (5) Hypothyroid Qualifiers: Hypothyroidism type: unspecified Qualified Code(s): E03.9 - Hypothyroidism , unspecified Is this a current diagnosis for this admission?: Yes Plan: Continue outpatient regimen (6) COPD (chronic obstructive pulmonary disease) with acute bronchitis Is this a current diagnosis for this admission?: Yes Plan: Continue DuoNeb, Mucinex and levaquin. To decrease oral steroids (7) Cellulitis of leg, left Is this a current diagnosis for this admission?: Yes Plan: Resolved (8) History of poliomyelitis Is this a current diagnosis for this admission?: Yes Plan: Patient has limited mobility therefore limiting her exercise capacity. Supportive (9) Anemia Qualifiers: Anemia type: unspecified type Qualified Code(s): D64.9 - Anemia, unspecified Is this a current diagnosis for this admission?: Yes Plan: Stable (10) Sleep apnea Qualifiers: Sleep apnea type: obstructive Qualified Code(s): G47.33 - Obstructive sleep apnea (adult) (pediatric) Is this a current diagnosis for this admission?: Yes Plan: Continue AVAPS and discontinued Provigil since did not appear to be helping her out (11) Hypokalemia Is this a current diagnosis for this admission?: Yes Plan: Replaced (12) Hypomagnesemia Is this a current diagnosis for this admission?: Yes Plan: Replaced. (13) Encephalopathy Is this a current diagnosis for this admission?: Yes Plan: Resolved - Time Time Spent with patient: 15-24 minutes Medications reviewed and adjusted accordingly: Yes Anticipated discharge: Home with Homehealth Within: within 48 hours - Inpatient Certification Based on my medical assessment, after consideration of the patient's comorbidities, presenting symptoms, or acuity I expect that the services needed warrant INPATIENT care.: Yes I certify that my determination is in accordance with my understanding of Medicare's requirements for reasonable and necessary INPATIENT services [42 CFR 412.3e].: Yes Medical Necessity: Need Close Monitoring Due to Risk of Patient Decompensation
[2017-10-02] MEDS: INSULIN LISPRO 100 UNIT/ML 3 ML VIAL SUBCUT PRN ×2 (17:25→23:38)
[2017-10-03] MEDS: NORMAL SALINE 1000 ML 1,000 ML IV PRN ×2 (04:36→17:15)
[2017-10-03] MEDS: FLUTICASONE/SALMETEROL DISKUS 500-50 MCG/DOSE IH SCH ×2 (06:10→17:28)
[2017-10-03] MEDS: HEPARIN SOD (PORCINE) 5,000 UNIT/ML 1 ML SYRINGE SUBCUT SCH ×3 (06:11→21:54)
[2017-10-03] MEDS: ACETYLCYSTEINE 20% SOLN 800 MG/4 ML VIAL.NEB NEB SCH ×2 (08:53→20:25)
[2017-10-03] MEDS: IPRATROPIUM/ALBUTEROL 0.5-2.5 MG/3 ML AMPUL NEB PRN ×2 (08:53→20:25)
[2017-10-03] MEDS: DOCUSATE SODIUM 100 MG CAPSULE PO SCH (09:27)
[2017-10-03] MEDS: MAGNESIUM OXIDE 400 MG TABLET PO SCH ×2 (09:27→17:28)
[2017-10-03] MEDS: GUAIFENESIN 600 MG TABLET.SA PO SCH ×2 (09:27→17:28)
[2017-10-03] MEDS: PREDNISONE 20 MG TABLET PO SCH (09:28)
[2017-10-03] MEDS: TIOTROPIUM BROMIDE DPI 5 CAP/KIT (18 MCG/CAP) IH SCH (09:31)
[2017-10-03] MEDS: INSULIN GLARGINE,HUM.REC.ANLOG 300 UNIT/3 ML INSULN.PEN SUBCUT SCH (09:42)
[2017-10-03] MEDS ORDERED: SORBITOL 70% SOLUTION 30 ML UDC PO PRN (09:52)
[2017-10-03] MEDS: POLYETHYLENE GLYCOL 3350 POWDER 17 GM/1 PACKET PO SCH (11:23)
[2017-10-03] MEDS: INSULIN LISPRO 100 UNIT/ML 3 ML VIAL SUBCUT PRN ×2 (13:31→21:55)
--- NOTE | 2017-10-03 14:39 | PDOC PROGRESS REPORT ---
Subjective Progress Note for:: 10/03/17 Subjective:: Patient relates that her breathing is better. Appetite is picking up. Patient has been encouraged as to try to be more active although she is bedbound. Patient complains of constipation Review of systems All organ systems evaluated and negative except as in subjective All significant laboratories and diagnostics have been reviewed Reason For Visit: ACUTE ON CHRONIC RESPIRATORY FAILURE Physical Exam Vital Signs: Temp Pulse Resp BP Pulse Ox 98.8 F 75 22 H 127/62 H 100 10/03/17 12:28 10/03/17 12:28 10/03/17 12:28 10/03/17 12:28 10/03/17 12:28 Pulse Oximeter Continuous Start: 09/25/17 15: 25 Freq: RTQ4 Status: Complete Document 09/29/17 08:16 JDR (Rec: 09/29/17 08:20 JDR [email or web address]) Pulse Oximetry Assessment Oxygen Saturation (92-100) 97 Oxygen Delivery Method AVAP Equipment Usage Equipment in Use Continuous SpO2 Machine # 7 Intake & Output 10/02/17 10/03/17 10/04/17 06:59 06:59 06:59 Intake Total 1800 1874 Output Total 300 400 0 Balance 1500 1474 0 Weight 120 kg 122.3 kg General appearance: PRESENT: cooperative, morbidly obese Head exam: PRESENT: atraumatic, normocephalic Eye exam: PRESENT: conjunctiva pink, EOMI, PERRLA Ear exam: PRESENT: normal external ear exam, TM's normal bilaterally Mouth exam: PRESENT: moist Neck exam: PRESENT: full ROM. ABSENT: JVD, lymphadenopathy, tenderness Respiratory exam: PRESENT: clear to auscultation joel. ABSENT: tachypnea, unlabored Cardiovascular exam: PRESENT: diastolic murmur, RRR, systolic murmur GI/Abdominal exam: PRESENT: normal bowel sounds, soft. ABSENT: tenderness Extremities exam: PRESENT: full ROM Musculoskeletal exam: PRESENT: ambulatory Neurological exam: PRESENT: alert, awake, oriented to person, oriented to place , oriented to time, oriented to situation, CN II-XII grossly intact Psychiatric exam: PRESENT: appropriate affect, normal mood Skin exam: PRESENT: erythema - Erythema of left lower extremity improved Results Laboratory Results: 10/02/17 04:56 10/02/17 04:56 09/23/17 23:00 Troponin I 0.137 Impressions: Chest X-Ray 09/23/17 14:16 IMPRESSION: Since the previous chest x-ray 09/10/2017 there has been a significant increase in diffuse infiltrate on the right and further increasing infiltrate and possible consolidation left lower lung zone. Assessment & Plan - Diagnosis (1) Acute on chronic diastolic (congestive) heart failure Is this a current diagnosis for this admission?: Yes Plan: Continue holding off diuresis since her blood pressure had been on the lower side. Antihypertensive medication adjusted for the same purpose. Continue hydrating gently since she may be on the dry side (2) Acute and chronic respiratory failure with hypercapnia Is this a current diagnosis for this admission?: Yes Plan: Patient on AVAPS. Blood gases improved since admission. Continues requiring use of BiPAP quite regularly. While observing this patient I think there is also an anxiety component that is also playing a major role on her complaints of dyspnea. Improved since admission (3) Morbid obesity with alveolar hypoventilation Is this a current diagnosis for this admission?: Yes Plan: Certainly contributing to presentation. Patient states that she had lost like around 100 pounds. (4) Diabetes mellitus type 2 in obese Is this a current diagnosis for this admission?: Yes Plan: Continue Humalog sliding scale and bedside glucose before meals and at bedtime (5) Hypothyroid Qualifiers: Hypothyroidism type: unspecified Qualified Code(s): E03.9 - Hypothyroidism , unspecified Is this a current diagnosis for this admission?: Yes Plan: Continue outpatient regimen (6) COPD (chronic obstructive pulmonary disease) with acute bronchitis Is this a current diagnosis for this admission?: Yes Plan: Continue DuoNeb, Mucinex, levaquin and oral steroids (7) Cellulitis of leg, left Is this a current diagnosis for this admission?: Yes Plan: Resolved (8) History of poliomyelitis Is this a current diagnosis for this admission?: Yes Plan: Patient has limited mobility therefore limiting her exercise capacity. Supportive (9) Anemia Qualifiers: Anemia type: unspecified type Qualified Code(s): D64.9 - Anemia, unspecified Is this a current diagnosis for this admission?: Yes Plan: Stable (10) Sleep apnea Qualifiers: Sleep apnea type: obstructive Qualified Code(s): G47.33 - Obstructive sleep apnea (adult) (pediatric) Is this a current diagnosis for this admission?: Yes Plan: Continue AVAPS and discontinued Provigil since did not appear to be helping her out (11) Hypokalemia Is this a current diagnosis for this admission?: Yes Plan: Replaced (12) Hypomagnesemia Is this a current diagnosis for this admission?: Yes Plan: Replaced. (13) Encephalopathy Is this a current diagnosis for this admission?: Yes Plan: Resolved (14) Constipation Qualifiers: Constipation type: unspecified constipation type Qualified Code(s): K59.00 - Constipation, unspecified Is this a current diagnosis for this admission?: Yes Plan: To place patient on bowel regimen - Time Time Spent with patient: 15-24 minutes Medications reviewed and adjusted accordingly: Yes Anticipated discharge: Home with Homehealth Within: within 72 hours - Inpatient Certification Based on my medical assessment, after consideration of the patient's comorbidities, presenting symptoms, or acuity I expect that the services needed warrant INPATIENT care.: Yes I certify that my determination is in accordance with my understanding of Medicare's requirements for reasonable and necessary INPATIENT services [42 CFR 412.3e].: Yes Medical Necessity: Need Close Monitoring Due to Risk of Patient Decompensation, Need For IV Fluids
[2017-10-03] MEDS: METOCLOPRAMIDE HCL INJ/PF 10 MG/2 ML SDV IV SCH ×2 (17:28→23:35)
[2017-10-04] MEDS: HEPARIN SOD (PORCINE) 5,000 UNIT/ML 1 ML SYRINGE SUBCUT SCH ×3 (05:18→22:01)
[2017-10-04] MEDS: METOCLOPRAMIDE HCL INJ/PF 10 MG/2 ML SDV IV SCH ×4 (05:18→23:48)
[2017-10-04] MEDS: FLUTICASONE/SALMETEROL DISKUS 500-50 MCG/DOSE IH SCH ×2 (05:19→17:06)
[2017-10-04] MEDS: NORMAL SALINE 1000 ML 1,000 ML IV PRN (05:22)
[2017-10-04] MEDS: ACETYLCYSTEINE 20% SOLN 800 MG/4 ML VIAL.NEB NEB SCH ×2 (08:57→20:06)
[2017-10-04] MEDS: IPRATROPIUM/ALBUTEROL 0.5-2.5 MG/3 ML AMPUL NEB PRN ×2 (08:57→20:06)
[2017-10-04] MEDS: INSULIN GLARGINE,HUM.REC.ANLOG 300 UNIT/3 ML INSULN.PEN SUBCUT SCH (09:44)
[2017-10-04] MEDS: TIOTROPIUM BROMIDE DPI 5 CAP/KIT (18 MCG/CAP) IH SCH (09:45)
[2017-10-04] MEDS: PREDNISONE 20 MG TABLET PO SCH (09:45)
[2017-10-04] MEDS: POLYETHYLENE GLYCOL 3350 POWDER 17 GM/1 PACKET PO SCH (09:45)
[2017-10-04] MEDS: DOCUSATE SODIUM 100 MG CAPSULE PO SCH (09:45)
[2017-10-04] MEDS: GUAIFENESIN 600 MG TABLET.SA PO SCH ×2 (09:45→17:06)
[2017-10-04] MEDS: MAGNESIUM OXIDE 400 MG TABLET PO SCH ×2 (09:46→17:06)
--- NOTE | 2017-10-04 16:54 | PDOC PROGRESS REPORT ---
Subjective Progress Note for:: 10/04/17 Subjective:: reports that her breathing continues to improve day by day; wore BiPAP at night and that seems to help. c/o progressive weakness, hasn't been out of the bed since her arrival and feels herself getting weaker. denies cherst pain, palpitations, fever/chills, n/v. reports BM yesterday evening. ROS: all systems reviewed, see above, remaining systems negative Reason For Visit: ACUTE ON CHRONIC RESPIRATORY FAILURE Physical Exam Vital Signs: Temp Pulse Resp BP Pulse Ox 97.7 F 86 26 H 133/47 H 99 10/04/17 11:18 10/04/17 14:00 10/04/17 11:18 10/04/17 11:18 10/04/17 11:18 Pulse Oximeter Continuous Start: 09/25/17 15: 25 Freq: RTQ4 Status: Complete Document 09/29/17 08:16 JDR (Rec: 09/29/17 08:20 [email or web address]) Pulse Oximetry Assessment Oxygen Saturation (92-100) 97 Oxygen Delivery Method AVAP Equipment Usage Equipment in Use Continuous SpO2 Machine # 7 Intake & Output 10/03/17 10/04/17 10/05/17 06:59 06:59 06:59 Intake Total 1874 2864 237 Output Total 400 0 Balance 1474 2864 237 Weight 122.3 kg 124.4 kg General appearance: PRESENT: morbidly obese, well-developed Head exam: PRESENT: atraumatic, normocephalic Eye exam: ABSENT: conjunctival injection, scleral icterus Mouth exam: PRESENT: moist, neck supple Neck exam: ABSENT: tracheal deviation Respiratory exam: PRESENT: crackles - bases. ABSENT: accessory muscle use, rhonchi, wheezes Cardiovascular exam: PRESENT: RRR. ABSENT: systolic murmur GI/Abdominal exam: PRESENT: normal bowel sounds, soft. ABSENT: tenderness Neurological exam: PRESENT: alert, awake, oriented to person, oriented to place , oriented to time, oriented to situation Psychiatric exam: PRESENT: appropriate affect, normal mood Skin exam: PRESENT: warm Results Laboratory Results: 10/02/17 04:56 10/02/17 04:56 09/23/17 23:00 Troponin I 0.137 Assessment & Plan - Diagnosis (1) Acute on chronic diastolic (congestive) heart failure Is this a current diagnosis for this admission?: Yes Plan: over shot the nati with diuresis getting her too dry and had to replace some volume but now seems euvolemic and will once again lock her fluids and monitor her volume status. (2) COPD (chronic obstructive pulmonary disease) with acute bronchitis Is this a current diagnosis for this admission?: Yes Plan: finished a course of abx and remains on low dose steroids at this time; continue nebs and supportive care (3) Constipation Qualifiers: Constipation type: unspecified constipation type Qualified Code(s): K59.00 - Constipation, unspecified Is this a current diagnosis for this admission?: Yes Plan: resolved with treatment (5) History of poliomyelitis Is this a current diagnosis for this admission?: Yes Plan: profound weakness and getting weaker; now that her respiratory status is stable , try to increase her activity in monitored setting with PT. uses power chair at home but usually able to perform transfers without assistance (6) Obesity hypoventilation syndrome Is this a current diagnosis for this admission?: Yes Plan: continue NiPPV at night (7) Sleep apnea Qualifiers: Sleep apnea type: obstructive Qualified Code(s): G47.33 - Obstructive sleep apnea (adult) (pediatric) Is this a current diagnosis for this admission?: Yes (9) Acute and chronic respiratory failure with hypercapnia Is this a current diagnosis for this admission?: Yes (10) Diabetes mellitus type 2 in obese Is this a current diagnosis for this admission?: Yes - Time Time Spent with patient: 15-24 minutes
[2017-10-04] MEDS: INSULIN LISPRO 100 UNIT/ML 3 ML VIAL SUBCUT PRN ×2 (17:06→22:33)
[2017-10-05] MEDS: HEPARIN SOD (PORCINE) 5,000 UNIT/ML 1 ML SYRINGE SUBCUT SCH ×3 (05:23→22:00)
[2017-10-05] MEDS: METOCLOPRAMIDE HCL INJ/PF 10 MG/2 ML SDV IV SCH ×3 (05:24→18:33)
[2017-10-05] MEDS: FLUTICASONE/SALMETEROL DISKUS 500-50 MCG/DOSE IH SCH ×2 (05:24→18:33)
[2017-10-05] MEDS: IPRATROPIUM/ALBUTEROL 0.5-2.5 MG/3 ML AMPUL NEB PRN ×2 (08:23→21:01)
[2017-10-05] MEDS: ACETYLCYSTEINE 20% SOLN 800 MG/4 ML VIAL.NEB NEB SCH ×2 (08:23→21:00)
[2017-10-05] MEDS: INSULIN GLARGINE,HUM.REC.ANLOG 300 UNIT/3 ML INSULN.PEN SUBCUT SCH (10:31)
[2017-10-05] MEDS: GUAIFENESIN 600 MG TABLET.SA PO SCH ×2 (10:32→18:34)
[2017-10-05] MEDS: DOCUSATE SODIUM 100 MG CAPSULE PO SCH (10:32)
[2017-10-05] MEDS: POLYETHYLENE GLYCOL 3350 POWDER 17 GM/1 PACKET PO SCH (10:32)
[2017-10-05] MEDS: PREDNISONE 20 MG TABLET PO SCH (10:32)
[2017-10-05] MEDS: MAGNESIUM OXIDE 400 MG TABLET PO SCH ×2 (10:32→18:34)
[2017-10-05] MEDS: TIOTROPIUM BROMIDE DPI 5 CAP/KIT (18 MCG/CAP) IH SCH (11:40)
--- NOTE | 2017-10-05 11:46 | PDOC PROGRESS REPORT ---
Subjective Progress Note for:: 10/05/17 Subjective:: overall not doing as well today, more breathless and lingering on BiPAP through the morning as a result. still c/o progressive weakness, hasn't been out of the bed since her arrival and feels herself getting weaker. PT ordered but not available on the weekend. denies wheezing, cough with phlegm, chest pain or heaviness, palpitations, fever /chills, n/v. ROS: all systems reviewed, see above, remaining systems negative Reason For Visit: ACUTE ON CHRONIC RESPIRATORY FAILURE Physical Exam Vital Signs: Temp Pulse Resp BP Pulse Ox 97.6 F 74 20 135/49 H 100 10/05/17 08:06 10/05/17 08:06 10/05/17 08:06 10/05/17 08:06 10/05/17 08:06 Intake & Output 10/04/17 10/05/17 10/06/17 06:59 06:59 06:59 Intake Total 2864 1502 Output Total 0 Balance 2864 1502 Weight 124.4 kg 126.5 kg General appearance: PRESENT: morbidly obese, well-developed, worried and anxious about her breathing Head exam: PRESENT: atraumatic, normocephalic Eye exam: ABSENT: conjunctival injection, scleral icterus Mouth exam: PRESENT: moist, neck supple Neck exam: ABSENT: tracheal deviation, stridor Respiratory exam: PRESENT: crackles - bases and diminished BSs bilat. ABSENT: accessory muscle use, rhonchi, wheezes Cardiovascular exam: PRESENT: RRR. ABSENT: systolic murmur GI/Abdominal exam: PRESENT: normal bowel sounds, soft. ABSENT: tenderness Neurological exam: PRESENT: alert, awake, oriented to person, oriented to place , oriented to time, oriented to situation Psychiatric exam: PRESENT: appropriate affect, normal mood Skin exam: PRESENT: warm Results Laboratory Results: 10/02/17 04:56 10/02/17 04:56 09/23/17 23:00 Troponin I 0.137 Impressions: Chest X-Ray 09/23/17 14:16 IMPRESSION: Since the previous chest x-ray 09/10/2017 there has been a significant increase in diffuse infiltrate on the right and further increasing infiltrate and possible consolidation left lower lung zone. Assessment & Plan - Diagnosis (1) Acute and chronic respiratory failure with hypercapnia Is this a current diagnosis for this admission?: Yes Plan: worse today and already on maximal therapy; perhaps she simply needed a bit more time on BiPAP this morning, admittedly didn't sleep well last night. Dr Sanders also following and hopefully will see again Friday. No bronchospasm evident so no clear indication to increase her steroids at this time; no fever or purulent phlegm. ck repeat cxr, cbc and bmp in am or if condition worsens today (2) Acute on chronic diastolic (congestive) heart failure Is this a current diagnosis for this admission?: Yes Plan: over shot the nati with diuresis getting her too dry and had to replace some volume, not sure now if that may be contributing to her setback this morning or not and in spite of stopping her IVFs Friday. may need another dose of lasix if fails to progress today, i don't hear any rales but her bulk makes good auscultation difficult. (3) COPD (chronic obstructive pulmonary disease) with acute bronchitis Is this a current diagnosis for this admission?: Yes Plan: early in her hospitalization treated with abx (levaquin, rocephin and/or zmax) and remains on low dose steroids at this time; continue nebs and supportive care (4) Constipation Qualifiers: Constipation type: unspecified constipation type Qualified Code(s): K59.00 - Constipation, unspecified Is this a current diagnosis for this admission?: Yes (5) History of poliomyelitis Is this a current diagnosis for this admission?: Yes (6) Obesity hypoventilation syndrome Is this a current diagnosis for this admission?: Yes (7) Sleep apnea Qualifiers: Sleep apnea type: obstructive Qualified Code(s): G47.33 - Obstructive sleep apnea (adult) (pediatric) Is this a current diagnosis for this admission?: Yes (9) Diabetes mellitus type 2 in obese Is this a current diagnosis for this admission?: Yes - Time Time Spent with patient: 25-34 minutes
[2017-10-05] MEDS: INSULIN LISPRO 100 UNIT/ML 3 ML VIAL SUBCUT PRN (22:01)
[2017-10-06] MEDS: METOCLOPRAMIDE HCL INJ/PF 10 MG/2 ML SDV IV SCH ×4 (01:46→18:21)
[2017-10-06] MEDS: FLUTICASONE/SALMETEROL DISKUS 500-50 MCG/DOSE IH SCH ×2 (06:12→18:21)
[2017-10-06] MEDS: HEPARIN SOD (PORCINE) 5,000 UNIT/ML 1 ML SYRINGE SUBCUT SCH ×3 (06:13→22:11)
[2017-10-06 06:39] LABS: BLOOD UREA NITROGEN 23 mg/dL (7-20); CALCIUM 9.1 mg/dL (8.4-10.2); CHLORIDE 99 mmol/L (98-107); GLUCOSE 53 mg/dL (75-110)
[2017-10-06 06:40] LABS: HEMATOCRIT 26.6 % (36.0-47.0); HEMOGLOBIN 8.3 g/dL (12.0-15.5); MEAN CORPUSCULAR HEMOGLOBIN 27.8 pg (27.0-33.4); MEAN CORPUSCULAR HGB CONC 31.4 g/dL (32.0-36.0); MEAN CORPUSCULAR VOLUME 89 fl (80-97); PLATELET COUNT 225 10^3/uL (150-450); RED CELL DISTRIBUTION WIDTH 16.2 % (11.5-14.0); WHITE BLOOD COUNT 7.1 10^3/uL (4.0-10.5)
[2017-10-06 06:58] LABS: CARBON DIOXIDE 37 mmol/L (22-30); POTASSIUM 4.7 mmol/L (3.6-5.0); SODIUM 139.8 mmol/L (137-145)
[2017-10-06 07:01] LABS: ANION GAP 4 (5-19)
[2017-10-06 07:44] LABS: ABSOLUTE LYMPHOCYTES# (MANUAL) 0.7 10^3/uL (0.5-4.7); ABSOLUTE MONOCYTES # (MANUAL) 0.7 10^3/uL (0.1-1.4); ABSOLUTE NEUTROPHILS# (MANUAL) 5.4 10^3/uL (1.7-8.2); BASOPHILS % (MANUAL) 0 % (0-2); EOSINOPHILS % (MANUAL) 4 % (0-6); LYMPHOCYTES % (MANUAL) 10 % (13-45); MONOCYTES % (MANUAL) 10 % (3-13); NUCLEATED RED BLOOD CELLS 1 /100 WBC (0); SEGMENTED NEUTROPHILS % (MAN) 76 % (42-78); TOTAL CELLS COUNTED 100
[2017-10-06 07:45] LABS: ANISOCYTOSIS 1+; OVALOCYTES SLIGHT; PLATELET COMMENT ADEQUATE; POIKILOCYTOSIS SLIGHT
--- NOTE | 2017-10-06 09:15 | RADIOLOGY REPORT (SQ) ---
EXAM DESCRIPTION: CHEST SINGLE VIEW COMPLETED DATE/TIME: 10/06/2017 8:41 am REASON FOR STUDY: dyspnea COMPARISON: 09/23/2017 EXAM PARAMETERS: NUMBER OF VIEWS: One view. TECHNIQUE: Single frontal radiographic view of the chest acquired. RADIATION DOSE: NA LIMITATIONS: None. FINDINGS: LUNGS AND PLEURA: Interval improvement previous noted abnormal density in the lungs consis tent with improving pneumonia residual density persist primarily in the left base remainder lungs are clear. No definite effusion. Small left effusion cannot be excluded. MEDIASTINUM AND HILAR STRUCTURES: No masses. Contour normal. HEART AND VASCULAR STRUCTURES: Heart normal in size. Normal vasculature. BONES: Severe scoliosis convex to the right. HARDWARE: None in the chest. OTHER: No other significant finding. IMPRESSION: Improving pneumonia with residual seen in the left base. TECHNICAL DOCUMENTATION: JOB ID: [id number] [employer]- All Rights Reserved
[2017-10-06] MEDS: IPRATROPIUM/ALBUTEROL 0.5-2.5 MG/3 ML AMPUL NEB PRN ×2 (09:25→20:51)
[2017-10-06] MEDS: ACETYLCYSTEINE 20% SOLN 800 MG/4 ML VIAL.NEB NEB SCH ×2 (09:25→20:51)
[2017-10-06] MEDS: TIOTROPIUM BROMIDE DPI 5 CAP/KIT (18 MCG/CAP) IH SCH (10:48)
[2017-10-06] MEDS: GUAIFENESIN 600 MG TABLET.SA PO SCH ×2 (10:48→18:21)
[2017-10-06] MEDS: POLYETHYLENE GLYCOL 3350 POWDER 17 GM/1 PACKET PO SCH (10:48)
[2017-10-06] MEDS: PREDNISONE 20 MG TABLET PO SCH (10:48)
[2017-10-06] MEDS: MAGNESIUM OXIDE 400 MG TABLET PO SCH ×2 (10:48→18:21)
[2017-10-06] MEDS: INSULIN GLARGINE,HUM.REC.ANLOG 300 UNIT/3 ML INSULN.PEN SUBCUT SCH (10:48)
[2017-10-06] MEDS: DOCUSATE SODIUM 100 MG CAPSULE PO SCH (10:48)
--- NOTE | 2017-10-06 14:26 | PDOC PROGRESS REPORT ---
Subjective Progress Note for:: 10/06/17 Subjective:: This is a follow-up visit for acute on chronic respiratory failure. The patient is resting in bed currently off of bilevel Pap. She states that she feels okay for now. She asks for help to sit up in bed and eat her lunch which is at the bedside. No acute events overnight. Reason For Visit: ACUTE ON CHRONIC RESPIRATORY FAILURE Physical Exam Vital Signs: Temp Pulse Resp BP Pulse Ox 97.8 F 91 22 H 115/48 L 99 10/06/17 11:08 10/06/17 11:08 10/06/17 11:08 10/06/17 11:08 10/06/17 11:08 Pulse Oximeter Continuous Start: 09/25/17 15: 25 Freq: RTQ4 Status: Complete Document 09/29/17 08:16 JDR (Rec: 09/29/17 08:20 JDR [email or web address]) Pulse Oximetry Assessment Oxygen Saturation (92-100) 97 Oxygen Delivery Method AVAP Equipment Usage Equipment in Use Continuous SpO2 Machine # 7 Intake & Output 10/05/17 10/06/17 10/07/17 06:59 06:59 06:59 Intake Total 1502 1037 236 Balance 1502 1037 236 Weight 126.5 kg 126.5 kg GENERAL: He is a well-developed and nourished appearing morbidly obese white female resting in bed initially sleeping and in no acute distress. HEART: Regular rate and rhythm. Blowing 2/6 holosystolic murmur best heard over the left upper sternal border. No gallops or rubs. LUNGS: Clear to auscultation anteriorly bilaterally with equal rise and fall of the chest. ABDOMEN: Soft, base nontender, nondistended with normoactive bowel sounds EXTREMETIES: No clubbing, cyanosis or edema. 2+ peripheral pulses bilaterally. NEURO: Awake, alert and oriented 3. Cranial nerves II through XII are grossly intact. Results Laboratory Results: 10/06/17 05:40 10/06/17 05:40 10/06/17 10/06/17 05:40 05:40 WBC 7.1 RBC 3.00 L Hgb 8.3 L Hct 26.6 L MCV 89 MCH 27.8 MCHC 31.4 L RDW 16.2 H Plt Count 225 Seg Neutrophils % Not Reportable Lymphocytes % Not Reportable Monocytes % Not Reportable Eosinophils % Not Reportable Basophils % Not Reportable Absolute Neutrophils Not Reportable Absolute Lymphocytes Not Reportable Absolute Monocytes Not Reportable Absolute Eosinophils Not Reportable Absolute Basophils Not Reportable Sodium 139.8 Potassium 4.7 Chloride 99 Carbon Dioxide 37 H Anion Gap 4 L BUN 23 H Creatinine 0.52 Est GFR ( Amer) > 60 Est GFR (Non-Af Amer) > 60 Glucose 53 L Calcium 9.1 09/23/17 23:00 Troponin I 0.137 Impressions: Chest X-Ray 10/06/17 06:00 IMPRESSION: Improving pneumonia with residual seen in the left base. Assessment & Plan - Diagnosis (1) Acute and chronic respiratory failure Qualifiers: Respiratory failure complication: hypoxia and hypercapnia Qualified Code(s) : J96.21 - Acute and chronic respiratory failure with hypoxia; J96.22 - Acute and chronic respiratory failure with hypercapnia; J96.22 - Acute and chronic respiratory failure with hypercapnia; J96.22 - Acute and chronic respiratory failure with hypercapnia Is this a current diagnosis for this admission?: Yes Plan: Multifactorial secondary to underlying COPD, obesity hypoventilation syndrome, CHF. Continue bilevel Pap as necessary. Pulmonary is following. Nebulized as needed. (2) Acute on chronic diastolic (congestive) heart failure Is this a current diagnosis for this admission?: Yes Plan: Continue diuresis as needed. Monitor I's and O's. (3) Obesity hypoventilation syndrome Is this a current diagnosis for this admission?: Yes Plan: Bilevel Pap. (4) Morbid obesity with BMI of 50.0-59.9, adult Is this a current diagnosis for this admission?: Yes Plan: Weight loss through dietary changes and exercise as tolerated. (5) Diabetes mellitus type 2 in obese Is this a current diagnosis for this admission?: Yes Plan: Continue Lantus and sliding scale insulin. - Time Time Spent with patient: 15-24 minutes
[2017-10-06] MEDS: INSULIN LISPRO 100 UNIT/ML 3 ML VIAL SUBCUT PRN (22:10)
[2017-10-07] MEDS: METOCLOPRAMIDE HCL INJ/PF 10 MG/2 ML SDV IV SCH ×3 (01:52→11:16)
[2017-10-07] MEDS: HEPARIN SOD (PORCINE) 5,000 UNIT/ML 1 ML SYRINGE SUBCUT SCH ×2 (05:21→14:16)
[2017-10-07] MEDS: FLUTICASONE/SALMETEROL DISKUS 500-50 MCG/DOSE IH SCH (05:28)
[2017-10-07] MEDS: ACETYLCYSTEINE 20% SOLN 800 MG/4 ML VIAL.NEB NEB SCH (08:46)
[2017-10-07] MEDS: IPRATROPIUM/ALBUTEROL 0.5-2.5 MG/3 ML AMPUL NEB PRN (08:46)
[2017-10-07] MEDS: DOCUSATE SODIUM 100 MG CAPSULE PO SCH (10:57)
[2017-10-07] MEDS: PREDNISONE 20 MG TABLET PO SCH (10:57)
[2017-10-07] MEDS: GUAIFENESIN 600 MG TABLET.SA PO SCH (10:57)
[2017-10-07] MEDS: MAGNESIUM OXIDE 400 MG TABLET PO SCH (10:58)
[2017-10-07] MEDS: TIOTROPIUM BROMIDE DPI 5 CAP/KIT (18 MCG/CAP) IH SCH (10:58)
[2017-10-07] MEDS: INSULIN GLARGINE,HUM.REC.ANLOG 300 UNIT/3 ML INSULN.PEN SUBCUT SCH (10:59)
[2017-10-07] MEDS: POLYETHYLENE GLYCOL 3350 POWDER 17 GM/1 PACKET PO SCH (11:06)
[2017-10-07] MEDS ORDERED: INSULIN GLARGINE,HUM.REC.ANLOG 1,000 UNIT/10 ML UNIT SUBCUT ONE (11:13)
--- NOTE | 2017-10-07 11:32 | PDOC DISCHARGE SUMMARY ---
General - Admit/Disc Date/PCP Admission Date/Primary Care Provider: 09/23/17 17:42 JEEVAN EARLY MD Discharge Date: 10/07/17 - Discharge Diagnosis (1) Acute and chronic respiratory failure with hypercapnia Is this a current diagnosis for this admission?: Yes Summary: Secondary to acute on chronic diastolic congestive heart failure and bronchitis : Patient was given steroids and breathing treatments along with Lasix. Patient 's respiratory function continued to improve. Patient is currently back to home requirements i.e. BiPAP and supplemental oxygen. (2) Acute on chronic diastolic (congestive) heart failure Is this a current diagnosis for this admission?: Yes Summary: She was placed on Lasix for the first few days to help with diuresing. At time of discharge patient was placed on Lasix 20 mg p.o. daily. Patient will need follow-up with cardiology as outpatient pulmonary (3) COPD (chronic obstructive pulmonary disease) with acute bronchitis Is this a current diagnosis for this admission?: Yes Summary: Patient was placed on steroids, breathing treatments, and antibiotics. Patient has completed treatment plan. (4) Cellulitis of leg, left Is this a current diagnosis for this admission?: Yes Summary: She was placed on Levaquin and cellulitis has resolved. (5) History of poliomyelitis Is this a current diagnosis for this admission?: Yes (6) Morbid obesity with alveolar hypoventilation Is this a current diagnosis for this admission?: Yes Summary: Encourage dietary changes and to continue to use BiPAP (7) Diabetes mellitus type 2 in obese Is this a current diagnosis for this admission?: Yes Summary: Patient will resume home regimen. (8) Hypothyroid Is this a current diagnosis for this admission?: Yes Summary: Patient will continue Synthroid. - Additional Information Resuscitation Status: Do Not Resuscitate Discharge Diet: Cardiac, Diabetic Discharge Activity: Activity As Tolerated, Balance Activity w/Rest, Weigh Daily Prescriptions: Furosemide [Lasix 20 mg Tablet] 20 mg PO QAM #30 tablet Prednisone [Deltasone 10 mg Tablet] 10 mg PO DAILY #5 tablet Home Medications: Albuterol Sulfate [Albuterol Sulfate 2.5mg/3 mL] 1 vial IH Q4 PRN 09/23/17 Aspirin [Ecotrin 81 mg EC Tablet] 81 mg PO DAILY 09/23/17 Atorvastatin Calcium [Lipitor 20 mg Tablet] 20 mg PO QHS 09/23/17 Budesonide/Formoterol Fumarate [Symbicort 160-4.5 Mcg Inhaler] 2 puff IH BID 02/02 Calcium Carbonate/Vitamin D3 [Calcium 500-Vit D3 200 Caplet] 1 tab PO DAILY 02/02 Clopidogrel Bisulfate [Plavix 75 mg Tablet] 75 mg PO DAILY 09/23/17 Fexofenadine HCl [Rin] 180 mg PO DAILY 09/23/17 Gemfibrozil [Lopid 600 mg Tablet] 600 mg PO BID 09/23/17 Liothyronine Sodium [Cytomel] 5 mcg PO DAILY 09/23/17 Montelukast Sodium [Singulair 10 mg Tablet] 10 mg PO DAILY 09/23/17 Omeprazole 40 mg PO DAILY 09/23/17 Potassium Chloride [Klor-Con 10 Meq Tablet.sa] 30 meq PO DAILY 09/23/17 Ranitidine HCl [Zantac 150 mg Tablet] 150 mg PO BID 09/23/17 Furosemide [Lasix 20 mg Tablet] 20 mg PO QAM #30 tablet 10/07/17 Prednisone [Deltasone 10 mg Tablet] 10 mg PO DAILY #5 tablet 10/07/17 History of Present Illness Patient complains of: Shortness of breath History of Present Illness: ALBERTO DIAL is a 72 year old female presents with complaint of shortness of breath. Hospital Course Hospital Course: Patient is a 72-year-old female who presents to our facility with complaint of shortness of breath. Patient was found to have acute bronchitis complicated by acute on chronic exacerbation of diastolic congestive heart failure. Pulmonary was consulted and agreed with antibiotic and breathing treatment plan. Patient was started on Lasix and diuresed which seemed to help improve patient's breathing. Due to patient receiving steroids patient was placed on insulin to help with blood glucose control. After antibiotics were de-escalated patient was not requiring insulin frequently to control blood glucose readings. Patient has requested to go home with home health and therefore arrangements have been made for patient to go home with home health. Patient will have nursing for medication administration, aide to help with bathing, and PT OT to help with debility. Physical Exam Vital Signs: Temp Pulse Resp BP Pulse Ox 97.8 F 63 16 133/59 H 98 10/07/17 04:05 10/07/17 08:56 10/07/17 08:56 10/07/17 04:05 10/07/17 08:56 Pulse Oximeter Continuous Start: 09/25/17 15: 25 Freq: RTQ4 Status: Complete Document 09/29/17 08:16 JDR (Rec: 09/29/17 08:20 JDR [email or web address]) Pulse Oximetry Assessment Oxygen Saturation (92-100) 97 Oxygen Delivery Method AVAP Equipment Usage Equipment in Use Continuous SpO2 Machine # 7 Intake & Output 10/06/17 10/07/17 10/08/17 06:59 06:59 06:59 Intake Total 1037 694 Balance 1037 694 Weight 126.5 kg 123.3 kg General appearance: PRESENT: no acute distress, obese, well-developed, well- nourished Head exam: PRESENT: atraumatic, normocephalic Eye exam: PRESENT: conjunctiva pink, EOMI. ABSENT: scleral icterus Ear exam: PRESENT: normal external ear exam Mouth exam: PRESENT: moist, tongue midline Neck exam: ABSENT: carotid bruit, JVD, lymphadenopathy, thyromegaly Respiratory exam: PRESENT: other - Good breath sounds heard anteriorly, diminished at bases bilaterally, no prolonged expiratory phase, no accessory muscle use, nasal cannula is in place Cardiovascular exam: PRESENT: RRR. ABSENT: diastolic murmur, rubs, systolic murmur Pulses: PRESENT: normal dorsalis pedis pul Vascular exam: PRESENT: normal capillary refill GI/Abdominal exam: PRESENT: normal bowel sounds, soft. ABSENT: distended, guarding, mass, organolmegaly, rebound, tenderness Rectal exam: PRESENT: deferred Extremities exam: ABSENT: calf tenderness, clubbing, pedal edema Neurological exam: PRESENT: alert, awake, oriented to person, oriented to place , oriented to time, oriented to situation, CN II-XII grossly intact. ABSENT: motor sensory deficit Psychiatric exam: PRESENT: appropriate affect, normal mood. ABSENT: homicidal ideation, suicidal ideation Skin exam: PRESENT: dry, intact, warm. ABSENT: cyanosis, rash Results Laboratory Results: 10/06/17 05:40 10/06/17 05:40 09/23/17 23:00 Troponin I 0.137 Impressions: Chest X-Ray 10/06/17 06:00 IMPRESSION: Improving pneumonia with residual seen in the left base. Qualifiers - * PATEINT BEING DISCHARGED WITH ANY OF THE FOLLOWING DIAGNOSIS?: No Plan Time Spent: Greater than 30 Minutes
[2017-10-07 13:57] VITALS: BP 123/59
--- NOTE | 2017-10-12 16:52 | PDOC CONSULTATION ---
Consultation Consult Date: 09/25/17 Attending physician:: MORENA AMBROSE Consult reason:: acute/chronic resp failure History of Present Illness Admission Date/PCP: 09/23/17 17:42 JEEVAN EARLY MD Patient complains of: dyspnea History of Present Illness: ALBERTO DIAL is a 72 year old female presents with complaint of shortness of breath. long hx of chronic resp failure,hx of polio per patient;CHF,asfhma/COPD,obesity- hypoventilation.[place] steadyly geclining at home with increasing dyspnea,chills cough yellow phlegm no hemoptysis Past Medical History Cardiac Medical History: Reports: Congestive Heart Failure - Diastolic, Coronary Artery Disease, Myocardial Infarction - cardiac stents x 2, Hyperlipidema, Hypertension, Heart Murmur - aortic stenosis Denies: DVT, Pulmonary Embolism Pulmonary Medical History: Reports: Asthma, Bronchitis, Chronic Obstructive Pulmonary Disease (COPD), Sleep Apnea - Bipap, Other - OHS Denies: Pneumonia, Tuberculosis EENT Medical History: Reports: None Neurological Medical History: Reports: None Denies: Seizures Endocrine Medical History: Reports: Diabetes Mellitus Type 2, Hypothyroidism Denies: Diabetes Mellitus Type 1, Hyperthyroidism Renal/ Medical History: Reports: None Malignancy Medical History: Reports: None GI Medical History: Reports: Gastroesophageal Reflux Disease Denies: Cirrhosis, Hepatitis Musculoskeltal Medical History: Reports: Arthritis - generalized Skin Medical History: Reports: None Psychiatric Medical History: Reports: Depression Traumatic Medical History: Reports: None Hematology: Reports: Anemia Past Surgical History Past Surgical History: Reports: Appendectomy, Colostomy - then reversed, Hysterectomy, Orthopedic Surgery - carpal tunnel, polio surgery to left leg Denies: Pacemaker Social History Information Source: Patient, [facility] Records Lives with: Family Smoking Status: Former Smoker Passive smoke exposure as: Both Frequency of Alcohol Use: None Hx Recreational Drug Use: No Drugs: None Hx Prescription Drug Abuse: No - Advance Directive Resuscitation Status: Do Not Resuscitate Family History Family History: DM, Hyperlipidemia, Hypertension Parental Family History Reviewed: Yes Children Family History Reviewed: Yes Sibling(s) Family History Reviewed.: Yes Medication/Allergy Home Medications: Albuterol Sulfate [Albuterol Sulfate 2.5mg/3 mL] 1 vial IH Q4 PRN 09/23/17 Aspirin [Ecotrin 81 mg EC Tablet] 81 mg PO DAILY 09/23/17 Atorvastatin Calcium [Lipitor 20 mg Tablet] 20 mg PO QHS 09/23/17 Budesonide/Formoterol Fumarate [Symbicort 160-4.5 Mcg Inhaler] 2 puff IH BID 02/02 Calcium Carbonate/Vitamin D3 [Calcium 500-Vit D3 200 Caplet] 1 tab PO DAILY 02/02 Clopidogrel Bisulfate [Plavix 75 mg Tablet] 75 mg PO DAILY 09/23/17 Fexofenadine HCl [Rin] 180 mg PO DAILY 09/23/17 Gemfibrozil [Lopid 600 mg Tablet] 600 mg PO BID 09/23/17 Liothyronine Sodium [Cytomel] 5 mcg PO DAILY 09/23/17 Montelukast Sodium [Singulair 10 mg Tablet] 10 mg PO DAILY 09/23/17 Omeprazole 40 mg PO DAILY 09/23/17 Potassium Chloride [Klor-Con 10 Meq Tablet.sa] 30 meq PO DAILY 09/23/17 Ranitidine HCl [Zantac 150 mg Tablet] 150 mg PO BID 09/23/17 Furosemide [Lasix 20 mg Tablet] 20 mg PO QAM #30 tablet 10/07/17 Prednisone [Deltasone 10 mg Tablet] 10 mg PO DAILY #5 tablet 10/07/17 Allergies/Adverse Reactions: hydromorphone HCl [From Dilaudid] Allergy (Severe, Verified 09/10/17 19:00) Respiratory arrest codeine [Codeine] Allergy (Intermediate, Verified 09/10/17 19:00) Hallucinations Review of Systems Constitutional: PRESENT: chills, fatigue, weakness. ABSENT: fever(s), headache( s) Eyes: ABSENT: visual disturbances Ears: ABSENT: hearing changes Nose, Mouth, and Throat: PRESENT: sore throat. ABSENT: mouth pain Cardiovascular: PRESENT: dyspnea on exertion, edema. ABSENT: palpitations Respiratory: PRESENT: cough. ABSENT: hemoptysis Gastrointestinal: PRESENT: nausea. ABSENT: abdominal pain, bloating, coffee ground emesis, dysphagia, heartburn, hematemesis, hematochezia, melena Genitourinary: PRESENT: nocturia. ABSENT: difficulty urinating, dysuria, hematuria Musculoskeletal: PRESENT: muscle weakness. ABSENT: deformity, joint swelling Integumentary: ABSENT: lesions, pruritus, rash Neurological: ABSENT: abnormal speech, confusion, convulsions, frequent falls, memory loss Psychiatric: PRESENT: anxiety, depression. ABSENT: hallucinations, homidical ideation, suicidal ideation Endocrine: PRESENT: heat intolerance. ABSENT: cold intolerance, menstrual abnormalities Hematologic/Lymphatic: PRESENT: easy bruising Physical Exam Vital Signs: Temp Pulse Resp BP Pulse Ox 97.4 F 92 22 H 117/69 100 09/25/17 12:10 09/25/17 12:23 09/25/17 12:23 09/25/17 12:10 09/25/17 12:10 Intake & Output 09/24/17 09/25/17 09/26/17 06:59 06:59 06:59 Intake Total 407 465 0 Output Total 1800 2150 200 Balance -1393 -1685 -200 Weight 122.7 kg 124.5 kg General appearance: PRESENT: cooperative, disheveled, mild distress, morbidly obese, well-developed Head exam: PRESENT: atraumatic, normocephalic Eye exam: PRESENT: conjunctiva pale, EOMI. ABSENT: nystagmus, periorbital swelling, scleral icterus Mouth exam: PRESENT: dry mucosa, neck supple, tongue midline Neck exam: ABSENT: carotid bruit, JVD, lymphadenopathy, thyromegaly, tracheal deviation, tracheostomy Respiratory exam: PRESENT: decreased breath sounds, prolonged expiratory phas, rales, rhonchi, symmetrical, tachypnea, unlabored. ABSENT: retraction, stridor , wheezes Cardiovascular exam: PRESENT: RRR, +S1, +S2, tachycardia Pulses: PRESENT: normal radial pulses GI/Abdominal exam: PRESENT: diminished bowel sounds, soft Extremities exam: PRESENT: joint swelling, +1 edema. ABSENT: calf tenderness, clubbing Musculoskeletal exam: ABSENT: deformity, dislocation Neurological exam: PRESENT: awake Skin exam: PRESENT: dry, warm Results Laboratory Results: 09/24/17 05:16 09/24/17 05:16 09/25/17 06:05 Carbonic Acid 3.33 H HCO3/H2CO3 Ratio 16:1 ABG pH 7.33 L ABG pCO2 110.5 H* ABG pO2 111.0 H ABG HCO3 56.6 H ABG O2 Saturation 97.2 ABG Base Excess 26.3 FiO2 60% 09/23/17 23:00 Troponin I 0.137 Impressions: Chest X-Ray 09/23/17 14:16 IMPRESSION: Since the previous chest x-ray 09/10/2017 there has been a significant increase in diffuse infiltrate on the right and further increasing infiltrate and possible consolidation left lower lung zone. Assessment & Plan - Diagnosis (1) Acute and chronic respiratory failure with hypercapnia Is this a current diagnosis for this admission?: Yes Plan: multiple etiologies patient reluctant to wear NIPPV cosistently (2) Acute on chronic diastolic (congestive) heart failure Is this a current diagnosis for this admission?: Yes Plan: per cardiology (3) Aspiration pneumonia Qualifiers: Lung location: unspecified part of lung Is this a current diagnosis for this admission?: Yes Plan: exacerbated by body habitus hx of polio (4) Obesity hypoventilation syndrome Is this a current diagnosis for this admission?: Yes Plan: NIPPV (5) Sleep apnea Qualifiers: Sleep apnea type: obstructive Qualified Code(s): G47.33 - Obstructive sleep apnea (adult) (pediatric) Is this a current diagnosis for this admission?: Yes Plan: NIPPV (6) Dysphagia Qualifiers: Dysphagia type: unspecified Qualified Code(s): R13.10 - Dysphagia, unspecified Is this a current diagnosis for this admission?: Yes
--- NOTE | 2017-10-12 16:55 | PDOC PROGRESS REPORT ---
Subjective Progress Note for:: 09/26/17 Subjective:: still SOB Reason For Visit: ACUTE ON CHRONIC RESPIRATORY FAILURE Physical Exam Vital Signs: Temp Pulse Resp BP Pulse Ox 97.3 F 88 25 H 150/81 H 97 09/26/17 12:00 09/26/17 12:24 09/26/17 12:24 09/26/17 12:00 09/26/17 12:24 Pulse Oximeter Continuous Start: 09/25/17 15: 25 Freq: RTQ4 Status: Active Document 09/26/17 12:24 [facility] (Rec: 09/26/17 13:15 [facility] [email or web address]) Pulse Oximetry Assessment Oxygen Saturation (92-100) 97 Oxygen Delivery Method Bi-pap Fraction of Inspired Oxygen (FIO2) 30 Equipment Usage Equipment in Use Continuous SpO2 Machine # 7 Intake & Output 09/25/17 09/26/17 09/27/17 06:59 06:59 06:59 Intake Total 465 120 Output Total 2150 1450 Balance -1685 -1330 Weight 124.5 kg 124.8 kg General appearance: PRESENT: cooperative, disheveled, mild distress, morbidly obese, well-developed Head exam: PRESENT: atraumatic, normocephalic Eye exam: PRESENT: conjunctiva pale, EOMI. ABSENT: nystagmus, periorbital swelling, scleral icterus Mouth exam: PRESENT: dry mucosa, neck supple, tongue midline Neck exam: ABSENT: carotid bruit, JVD, lymphadenopathy, thyromegaly, tracheal deviation, tracheostomy Respiratory exam: PRESENT: decreased breath sounds, prolonged expiratory phas, rales, rhonchi, symmetrical, tachypnea, wheezes. ABSENT: retraction, stridor, unlabored Cardiovascular exam: PRESENT: RRR, +S1, +S2, systolic murmur, tachycardia Pulses: PRESENT: normal radial pulses GI/Abdominal exam: PRESENT: diminished bowel sounds, soft Extremities exam: PRESENT: +1 edema. ABSENT: calf tenderness, clubbing, joint swelling Musculoskeletal exam: ABSENT: deformity, dislocation Neurological exam: PRESENT: awake Skin exam: PRESENT: dry, warm Results Laboratory Results: 09/26/17 04:54 09/26/17 04:54 09/25/17 09/25/17 09/26/17 17:35 19:18 04:54 WBC 8.9 RBC 3.15 L Hgb 8.9 L Hct 28.0 L MCV 89 MCH 28.2 MCHC 31.7 L RDW 15.3 H Plt Count 357 Seg Neutrophils % Not Reportable Lymphocytes % Not Reportable Monocytes % Not Reportable Eosinophils % Not Reportable Basophils % Not Reportable Absolute Neutrophils Not Reportable Absolute Lymphocytes Not Reportable Absolute Monocytes Not Reportable Absolute Eosinophils Not Reportable Absolute Basophils Not Reportable Carbonic Acid 4.54 H 2.96 H HCO3/H2CO3 Ratio 14:1 19:1 ABG pH 7.26 L 7.40 ABG pCO2 150.7 H* 98.4 H* ABG pO2 194.8 H 56.6 L ABG HCO3 66.1 H 59.0 H ABG O2 Saturation 98.9 H 86.6 L ABG Base Excess 33.1 29.6 FiO2 50 35% Sodium Potassium Chloride Carbon Dioxide Anion Gap BUN Creatinine Est GFR ( Amer) Est GFR (Non-Af Amer) Glucose Calcium Magnesium 09/26/17 09/26/17 04:54 06:15 WBC RBC Hgb Hct MCV MCH MCHC RDW Plt Count Seg Neutrophils % Lymphocytes % Monocytes % Eosinophils % Basophils % Absolute Neutrophils Absolute Lymphocytes Absolute Monocytes Absolute Eosinophils Absolute Basophils Carbonic Acid 2.48 H HCO3/H2CO3 Ratio 21:1 ABG pH 7.42 ABG pCO2 82.3 H* ABG pO2 58.8 L ABG HCO3 52.4 H ABG O2 Saturation 89.2 L ABG Base Excess 24.2 FiO2 35% Sodium 140.7 Potassium 4.0 Chloride 84 L Carbon Dioxide 50 H* Anion Gap 7 BUN 28 H Creatinine 0.55 Est GFR ( Amer) > 60 Est GFR (Non-Af Amer) > 60 Glucose 203 H Calcium 9.5 Magnesium 1.9 09/23/17 23:00 Troponin I 0.137 Impressions: Chest X-Ray 09/23/17 14:16 IMPRESSION: Since the previous chest x-ray 09/10/2017 there has been a significant increase in diffuse infiltrate on the right and further increasing infiltrate and possible consolidation left lower lung zone. Assessment & Plan - Diagnosis (1) Acute and chronic respiratory failure with hypercapnia Is this a current diagnosis for this admission?: Yes Plan: multiple etiologies patient reluctant to wear NIPPV cosistently (2) Aspiration pneumonia Qualifiers: Lung location: unspecified part of lung Is this a current diagnosis for this admission?: Yes Plan: exacerbated by body habitus hx of polio (3) Obesity hypoventilation syndrome Is this a current diagnosis for this admission?: Yes Plan: NIPPV (4) Sleep apnea Qualifiers: Sleep apnea type: obstructive Qualified Code(s): G47.33 - Obstructive sleep apnea (adult) (pediatric) Is this a current diagnosis for this admission?: Yes Plan: NIPPV
--- NOTE | 2017-10-12 16:58 | PDOC PROGRESS REPORT ---
Subjective Progress Note for:: 09/29/17 Reason For Visit: ACUTE ON CHRONIC RESPIRATORY FAILURE Physical Exam Vital Signs: Temp Pulse Resp BP Pulse Ox 97.8 F 63 16 123/59 L 98 10/07/17 13:55 10/07/17 13:55 10/07/17 13:55 10/07/17 13:55 10/07/17 13:55 Pulse Oximeter Continuous Start: 09/25/17 15: 25 Freq: RTQ4 Status: Complete Document 09/29/17 08:16 JDR (Rec: 09/29/17 08:20 JDR [email or web address]) Pulse Oximetry Assessment Oxygen Saturation (92-100) 97 Oxygen Delivery Method AVAP Equipment Usage Equipment in Use Continuous SpO2 Machine # 7 Intake & Output 10/06/17 10/07/17 10/08/17 06:59 06:59 06:59 Intake Total 1037 694 236 Balance 1037 694 236 Weight 126.5 kg 123.3 kg General appearance: PRESENT: cooperative, disheveled, mild distress, morbidly obese Head exam: PRESENT: atraumatic, normocephalic Eye exam: PRESENT: conjunctiva pale, EOMI. ABSENT: nystagmus, periorbital swelling Mouth exam: PRESENT: dry mucosa, neck supple, tongue midline Neck exam: ABSENT: carotid bruit, JVD, lymphadenopathy, thyromegaly, tracheal deviation, tracheostomy Respiratory exam: PRESENT: decreased breath sounds, prolonged expiratory phas, rales, rhonchi, symmetrical, tachypnea, wheezes. ABSENT: retraction, stridor Cardiovascular exam: PRESENT: RRR, +S1, +S2, systolic murmur Pulses: PRESENT: normal radial pulses GI/Abdominal exam: PRESENT: diminished bowel sounds, soft Gentrourinary exam: PRESENT: indwelling catheter Extremities exam: PRESENT: +1 edema. ABSENT: clubbing, full ROM, joint swelling Musculoskeletal exam: ABSENT: deformity, dislocation Neurological exam: PRESENT: awake Skin exam: PRESENT: dry, warm Results Laboratory Results: 10/06/17 05:40 10/06/17 05:40 09/23/17 23:00 Troponin I 0.137 Impressions: Chest X-Ray 10/06/17 06:00 IMPRESSION: Improving pneumonia with residual seen in the left base. Assessment & Plan - Diagnosis (1) Acute and chronic respiratory failure with hypercapnia Is this a current diagnosis for this admission?: Yes Plan: multiple etiologies patient reluctant to wear NIPPV cosistently (2) Acute on chronic diastolic (congestive) heart failure Is this a current diagnosis for this admission?: Yes Plan: per cardiology (3) Aspiration pneumonia Qualifiers: Lung location: unspecified part of lung Is this a current diagnosis for this admission?: Yes Plan: exacerbated by body habitus hx of polio (4) Obesity hypoventilation syndrome Is this a current diagnosis for this admission?: Yes Plan: NIPPV (5) Sleep apnea Qualifiers: Sleep apnea type: obstructive Qualified Code(s): G47.33 - Obstructive sleep apnea (adult) (pediatric) Is this a current diagnosis for this admission?: Yes Plan: NIPPV (6) Dysphagia Qualifiers: Dysphagia type: unspecified Qualified Code(s): R13.10 - Dysphagia, unspecified Is this a current diagnosis for this admission?: Yes
--- NOTE | 2017-10-12 17:00 | PDOC PROGRESS REPORT ---
Subjective Progress Note for:: 09/30/17 Subjective:: still SOB Reason For Visit: ACUTE ON CHRONIC RESPIRATORY FAILURE Physical Exam Vital Signs: Temp Pulse Resp BP Pulse Ox 97.8 F 63 16 123/59 L 98 10/07/17 13:55 10/07/17 13:55 10/07/17 13:55 10/07/17 13:55 10/07/17 13:55 Pulse Oximeter Continuous Start: 09/25/17 15: 25 Freq: RTQ4 Status: Complete Document 09/29/17 08:16 JDR (Rec: 09/29/17 08:20 JDR [email or web address]) Pulse Oximetry Assessment Oxygen Saturation (92-100) 97 Oxygen Delivery Method AVAP Equipment Usage Equipment in Use Continuous SpO2 Machine # 7 Intake & Output 10/06/17 10/07/17 10/08/17 06:59 06:59 06:59 Intake Total 1037 694 236 Balance 1037 694 236 Weight 126.5 kg 123.3 kg General appearance: PRESENT: cooperative, disheveled, mild distress, morbidly obese Head exam: PRESENT: atraumatic, normocephalic Eye exam: PRESENT: conjunctiva pale, EOMI. ABSENT: nystagmus, periorbital swelling Mouth exam: PRESENT: dry mucosa, neck supple, tongue midline Neck exam: ABSENT: carotid bruit, JVD, lymphadenopathy, thyromegaly, tracheal deviation, tracheostomy Respiratory exam: PRESENT: decreased breath sounds, prolonged expiratory phas, rales, rhonchi, symmetrical, tachypnea, wheezes. ABSENT: retraction, stridor Cardiovascular exam: PRESENT: RRR, +S1, +S2, systolic murmur Pulses: PRESENT: normal radial pulses GI/Abdominal exam: PRESENT: diminished bowel sounds, soft Extremities exam: PRESENT: +1 edema. ABSENT: calf tenderness, clubbing, joint swelling Musculoskeletal exam: ABSENT: deformity, dislocation Neurological exam: PRESENT: awake Psychiatric exam: PRESENT: flat affect Skin exam: PRESENT: dry, warm Results Laboratory Results: 10/06/17 05:40 10/06/17 05:40 09/23/17 23:00 Troponin I 0.137 Impressions: Chest X-Ray 10/06/17 06:00 IMPRESSION: Improving pneumonia with residual seen in the left base. Assessment & Plan - Diagnosis (1) Acute and chronic respiratory failure with hypercapnia Is this a current diagnosis for this admission?: Yes Plan: multiple etiologies patient reluctant to wear NIPPV cosistently (2) Acute on chronic diastolic (congestive) heart failure Is this a current diagnosis for this admission?: Yes Plan: per cardiology (3) Aspiration pneumonia Qualifiers: Lung location: unspecified part of lung Is this a current diagnosis for this admission?: Yes Plan: exacerbated by body habitus hx of polio (4) Obesity hypoventilation syndrome Is this a current diagnosis for this admission?: Yes Plan: NIPPV (5) Sleep apnea Qualifiers: Sleep apnea type: obstructive Qualified Code(s): G47.33 - Obstructive sleep apnea (adult) (pediatric) Is this a current diagnosis for this admission?: Yes Plan: NIPPV
--- NOTE | 2017-10-12 17:02 | PDOC PROGRESS REPORT ---
Subjective Progress Note for:: 10/01/17 Subjective:: still SOB Reason For Visit: ACUTE ON CHRONIC RESPIRATORY FAILURE Physical Exam Vital Signs: Temp Pulse Resp BP Pulse Ox 97.8 F 63 16 123/59 L 98 10/07/17 13:55 10/07/17 13:55 10/07/17 13:55 10/07/17 13:55 10/07/17 13:55 Pulse Oximeter Continuous Start: 09/25/17 15: 25 Freq: RTQ4 Status: Complete Document 09/29/17 08:16 JDR (Rec: 09/29/17 08:20 JDR [email or web address]) Pulse Oximetry Assessment Oxygen Saturation (92-100) 97 Oxygen Delivery Method AVAP Equipment Usage Equipment in Use Continuous SpO2 Machine # 7 Intake & Output 10/06/17 10/07/17 10/08/17 06:59 06:59 06:59 Intake Total 1037 694 236 Balance 1037 694 236 Weight 126.5 kg 123.3 kg General appearance: PRESENT: no acute distress, cooperative, disheveled, morbidly obese Head exam: PRESENT: atraumatic, normocephalic Eye exam: PRESENT: conjunctiva pale, EOMI. ABSENT: nystagmus, periorbital swelling Mouth exam: PRESENT: dry mucosa, neck supple, tongue midline Neck exam: ABSENT: carotid bruit, JVD, lymphadenopathy, thyromegaly, tracheal deviation, tracheostomy Respiratory exam: PRESENT: decreased breath sounds, prolonged expiratory phas, rales, rhonchi, symmetrical, unlabored. ABSENT: retraction, stridor, tachypnea Cardiovascular exam: PRESENT: RRR, +S1, +S2, systolic murmur Pulses: PRESENT: normal radial pulses GI/Abdominal exam: PRESENT: diminished bowel sounds, soft Extremities exam: PRESENT: +1 edema. ABSENT: calf tenderness, clubbing, joint swelling Musculoskeletal exam: ABSENT: deformity, dislocation Neurological exam: PRESENT: awake Psychiatric exam: PRESENT: flat affect Skin exam: PRESENT: dry, warm Results Laboratory Results: 10/06/17 05:40 10/06/17 05:40 09/23/17 23:00 Troponin I 0.137 Impressions: Chest X-Ray 10/06/17 06:00 IMPRESSION: Improving pneumonia with residual seen in the left base. Assessment & Plan - Diagnosis (1) Acute and chronic respiratory failure with hypercapnia Is this a current diagnosis for this admission?: Yes Plan: multiple etiologies patient reluctant to wear NIPPV cosistently (2) Acute on chronic diastolic (congestive) heart failure Is this a current diagnosis for this admission?: Yes Plan: per cardiology (3) Aspiration pneumonia Qualifiers: Lung location: unspecified part of lung Is this a current diagnosis for this admission?: Yes Plan: exacerbated by body habitus hx of polio (4) Obesity hypoventilation syndrome Is this a current diagnosis for this admission?: Yes Plan: NIPPV (5) Sleep apnea Qualifiers: Sleep apnea type: obstructive Qualified Code(s): G47.33 - Obstructive sleep apnea (adult) (pediatric) Is this a current diagnosis for this admission?: Yes Plan: NIPPV
--- NOTE | 2017-10-12 17:03 | PDOC PROGRESS REPORT ---
Subjective Progress Note for:: 10/02/17 Subjective:: still SOB Reason For Visit: ACUTE ON CHRONIC RESPIRATORY FAILURE Physical Exam Vital Signs: Temp Pulse Resp BP Pulse Ox 97.8 F 63 16 123/59 L 98 10/07/17 13:55 10/07/17 13:55 10/07/17 13:55 10/07/17 13:55 10/07/17 13:55 Pulse Oximeter Continuous Start: 09/25/17 15: 25 Freq: RTQ4 Status: Complete Document 09/29/17 08:16 JDR (Rec: 09/29/17 08:20 JDR [email or web address]) Pulse Oximetry Assessment Oxygen Saturation (92-100) 97 Oxygen Delivery Method AVAP Equipment Usage Equipment in Use Continuous SpO2 Machine # 7 Intake & Output 10/06/17 10/07/17 10/08/17 06:59 06:59 06:59 Intake Total 1037 694 236 Balance 1037 694 236 Weight 126.5 kg 123.3 kg General appearance: PRESENT: no acute distress, cooperative, disheveled, morbidly obese Head exam: PRESENT: atraumatic, normocephalic Eye exam: PRESENT: conjunctiva pale, EOMI. ABSENT: nystagmus, periorbital swelling Mouth exam: PRESENT: dry mucosa, neck supple, tongue midline Neck exam: ABSENT: carotid bruit, JVD, lymphadenopathy, thyromegaly, tracheal deviation, tracheostomy Respiratory exam: PRESENT: decreased breath sounds, prolonged expiratory phas, rales, rhonchi, symmetrical, tachypnea, unlabored. ABSENT: retraction, stridor Cardiovascular exam: PRESENT: RRR, +S1, +S2, systolic murmur GI/Abdominal exam: PRESENT: diminished bowel sounds, soft Extremities exam: PRESENT: +1 edema. ABSENT: calf tenderness, clubbing, joint swelling Musculoskeletal exam: ABSENT: deformity, dislocation Neurological exam: PRESENT: awake Skin exam: PRESENT: dry, warm Results Laboratory Results: 10/06/17 05:40 10/06/17 05:40 09/23/17 23:00 Troponin I 0.137 Impressions: Chest X-Ray 10/06/17 06:00 IMPRESSION: Improving pneumonia with residual seen in the left base. Assessment & Plan - Diagnosis (1) Acute and chronic respiratory failure with hypercapnia Is this a current diagnosis for this admission?: Yes Plan: multiple etiologies patient reluctant to wear NIPPV cosistently (2) Acute on chronic diastolic (congestive) heart failure Is this a current diagnosis for this admission?: Yes Plan: per cardiology (3) Aspiration pneumonia Qualifiers: Lung location: unspecified part of lung Is this a current diagnosis for this admission?: Yes Plan: exacerbated by body habitus hx of polio (4) Obesity hypoventilation syndrome Is this a current diagnosis for this admission?: Yes Plan: NIPPV (5) Sleep apnea Qualifiers: Sleep apnea type: obstructive Qualified Code(s): G47.33 - Obstructive sleep apnea (adult) (pediatric) Is this a current diagnosis for this admission?: Yes Plan: NIPPV
--- NOTE | 2017-10-12 17:06 | PDOC PROGRESS REPORT ---
Subjective Progress Note for:: 10/03/17 Subjective:: still SOB Reason For Visit: ACUTE ON CHRONIC RESPIRATORY FAILURE Physical Exam Vital Signs: Temp Pulse Resp BP Pulse Ox 97.8 F 63 16 123/59 L 98 10/07/17 13:55 10/07/17 13:55 10/07/17 13:55 10/07/17 13:55 10/07/17 13:55 Pulse Oximeter Continuous Start: 09/25/17 15: 25 Freq: RTQ4 Status: Complete Document 09/29/17 08:16 JDR (Rec: 09/29/17 08:20 JDR [email or web address]) Pulse Oximetry Assessment Oxygen Saturation (92-100) 97 Oxygen Delivery Method AVAP Equipment Usage Equipment in Use Continuous SpO2 Machine # 7 Intake & Output 10/06/17 10/07/17 10/08/17 06:59 06:59 06:59 Intake Total 1037 694 236 Balance 1037 694 236 Weight 126.5 kg 123.3 kg General appearance: PRESENT: no acute distress, cooperative, disheveled, morbidly obese Head exam: PRESENT: atraumatic, normocephalic Eye exam: PRESENT: conjunctiva pale, EOMI. ABSENT: nystagmus, periorbital swelling Mouth exam: PRESENT: dry mucosa, neck supple, tongue midline Neck exam: ABSENT: carotid bruit, JVD, lymphadenopathy, thyromegaly, tracheal deviation, tracheostomy Respiratory exam: PRESENT: decreased breath sounds, prolonged expiratory phas, rales, rhonchi, symmetrical, unlabored. ABSENT: retraction, stridor Cardiovascular exam: PRESENT: RRR, +S1, +S2, systolic murmur Pulses: PRESENT: normal radial pulses GI/Abdominal exam: PRESENT: diminished bowel sounds, soft Extremities exam: PRESENT: +1 edema. ABSENT: calf tenderness, clubbing, joint swelling Musculoskeletal exam: PRESENT: deformity, dislocation Neurological exam: PRESENT: awake Skin exam: PRESENT: dry, warm Results Laboratory Results: 10/06/17 05:40 10/06/17 05:40 09/23/17 23:00 Troponin I 0.137 Impressions: Chest X-Ray 10/06/17 06:00 IMPRESSION: Improving pneumonia with residual seen in the left base. Assessment & Plan - Diagnosis (1) Acute and chronic respiratory failure with hypercapnia Is this a current diagnosis for this admission?: Yes Plan: multiple etiologies patient reluctant to wear NIPPV cosistently (2) Acute on chronic diastolic (congestive) heart failure Is this a current diagnosis for this admission?: Yes Plan: per cardiology (3) Aspiration pneumonia Qualifiers: Lung location: unspecified part of lung Is this a current diagnosis for this admission?: Yes Plan: exacerbated by body habitus hx of polio (4) Obesity hypoventilation syndrome Is this a current diagnosis for this admission?: Yes Plan: NIPPV (5) Sleep apnea Qualifiers: Sleep apnea type: obstructive Qualified Code(s): G47.33 - Obstructive sleep apnea (adult) (pediatric) Is this a current diagnosis for this admission?: Yes Plan: NIPPV
--- NOTE | 2017-10-12 17:08 | PDOC PROGRESS REPORT ---
Subjective Progress Note for:: 10/06/17 Subjective:: compliance withNIPPV impproving much less SOB Reason For Visit: ACUTE ON CHRONIC RESPIRATORY FAILURE Physical Exam Vital Signs: Temp Pulse Resp BP Pulse Ox 97.8 F 63 16 123/59 L 98 10/07/17 13:55 10/07/17 13:55 10/07/17 13:55 10/07/17 13:55 10/07/17 13:55 Pulse Oximeter Continuous Start: 09/25/17 15: 25 Freq: RTQ4 Status: Complete Document 09/29/17 08:16 JDR (Rec: 09/29/17 08:20 JDR [email or web address]) Pulse Oximetry Assessment Oxygen Saturation (92-100) 97 Oxygen Delivery Method AVAP Equipment Usage Equipment in Use Continuous SpO2 Machine # 7 Intake & Output 10/06/17 10/07/17 10/08/17 06:59 06:59 06:59 Intake Total 1037 694 236 Balance 1037 694 236 Weight 126.5 kg 123.3 kg General appearance: PRESENT: no acute distress, cooperative, disheveled, morbidly obese Head exam: PRESENT: atraumatic, normocephalic Eye exam: PRESENT: conjunctiva pale, EOMI. ABSENT: nystagmus, periorbital swelling Mouth exam: PRESENT: dry mucosa, neck supple, tongue midline Neck exam: ABSENT: carotid bruit, JVD, lymphadenopathy, thyromegaly, tracheal deviation, tracheostomy Respiratory exam: PRESENT: crackles, decreased breath sounds, prolonged expiratory phas, rhonchi, symmetrical, unlabored. ABSENT: rales, retraction, stridor, tachypnea Cardiovascular exam: PRESENT: RRR, +S1, +S2, systolic murmur Pulses: PRESENT: normal radial pulses GI/Abdominal exam: PRESENT: diminished bowel sounds, soft Extremities exam: PRESENT: +1 edema. ABSENT: calf tenderness, clubbing, joint swelling Musculoskeletal exam: ABSENT: deformity, dislocation Neurological exam: PRESENT: awake Skin exam: PRESENT: dry, warm Results Laboratory Results: 10/06/17 05:40 10/06/17 05:40 09/23/17 23:00 Troponin I 0.137 Impressions: Chest X-Ray 10/06/17 06:00 IMPRESSION: Improving pneumonia with residual seen in the left base. Assessment & Plan - Diagnosis (1) Acute and chronic respiratory failure with hypercapnia Is this a current diagnosis for this admission?: Yes Plan: multiple etiologies patient reluctant to wear NIPPV cosistently (2) Acute on chronic diastolic (congestive) heart failure Is this a current diagnosis for this admission?: Yes Plan: per cardiology (3) Aspiration pneumonia Qualifiers: Lung location: unspecified part of lung Is this a current diagnosis for this admission?: Yes Plan: exacerbated by body habitus hx of polio (4) Obesity hypoventilation syndrome Is this a current diagnosis for this admission?: Yes Plan: NIPPV (5) Sleep apnea Qualifiers: Sleep apnea type: obstructive Qualified Code(s): G47.33 - Obstructive sleep apnea (adult) (pediatric) Is this a current diagnosis for this admission?: Yes Plan: NIPPV
--- NOTE | 2017-10-12 17:10 | PDOC PROGRESS REPORT ---
Subjective Progress Note for:: 10/07/17 Subjective:: awaiting dc promised to be more compliant Reason For Visit: ACUTE ON CHRONIC RESPIRATORY FAILURE Physical Exam Vital Signs: Temp Pulse Resp BP Pulse Ox 97.8 F 63 16 133/59 H 98 10/07/17 04:05 10/07/17 08:56 10/07/17 08:56 10/07/17 04:05 10/07/17 08:56 Pulse Oximeter Continuous Start: 09/25/17 15: 25 Freq: RTQ4 Status: Complete Document 09/29/17 08:16 JDR (Rec: 09/29/17 08:20 JDR [email or web address]) Pulse Oximetry Assessment Oxygen Saturation (92-100) 97 Oxygen Delivery Method AVAP Equipment Usage Equipment in Use Continuous SpO2 Machine # 7 Intake & Output 10/06/17 10/07/17 10/08/17 06:59 06:59 06:59 Intake Total 1037 694 Balance 1037 694 Weight 126.5 kg 123.3 kg General appearance: PRESENT: no acute distress, cooperative, disheveled, morbidly obese Head exam: PRESENT: atraumatic, normocephalic Eye exam: PRESENT: conjunctiva pale, EOMI. ABSENT: nystagmus, periorbital swelling Mouth exam: PRESENT: dry mucosa, neck supple, tongue midline Neck exam: ABSENT: carotid bruit, JVD, lymphadenopathy, thyromegaly, tracheal deviation, tracheostomy Respiratory exam: PRESENT: decreased breath sounds, prolonged expiratory phas, rales, rhonchi, symmetrical, unlabored. ABSENT: retraction, stridor Cardiovascular exam: PRESENT: RRR, +S1, +S2, systolic murmur Pulses: PRESENT: normal radial pulses GI/Abdominal exam: PRESENT: diminished bowel sounds, soft Extremities exam: PRESENT: +1 edema. ABSENT: calf tenderness, clubbing, joint swelling Musculoskeletal exam: ABSENT: deformity, dislocation Neurological exam: PRESENT: awake Skin exam: PRESENT: dry, warm Results Laboratory Results: 10/06/17 05:40 10/06/17 05:40 09/23/17 23:00 Troponin I 0.137 Impressions: Chest X-Ray 10/06/17 06:00 IMPRESSION: Improving pneumonia with residual seen in the left base. Assessment & Plan - Diagnosis (1) Acute and chronic respiratory failure with hypercapnia Is this a current diagnosis for this admission?: Yes Plan: multiple etiologies patient reluctant to wear NIPPV cosistently (2) Acute on chronic diastolic (congestive) heart failure Is this a current diagnosis for this admission?: Yes Plan: per cardiology (3) Aspiration pneumonia Qualifiers: Lung location: unspecified part of lung Is this a current diagnosis for this admission?: Yes Plan: exacerbated by body habitus hx of polio (4) Obesity hypoventilation syndrome Is this a current diagnosis for this admission?: Yes Plan: NIPPV (5) Sleep apnea Qualifiers: Sleep apnea type: obstructive Qualified Code(s): G47.33 - Obstructive sleep apnea (adult) (pediatric) Is this a current diagnosis for this admission?: Yes Plan: NIPPV
== END 2017-10-07 15:02 | disposition home health service (06) | DRG 291 ==
LOC: ER 14:12 → EH 17:42 → 3W 21:40
PROVIDERS: ADMIT Emergency Medicine; ATTEND Emergency Medicine
PROC: 3E0F73Z Introduction of Anti-inflammatory into Respiratory Tract, Via Natural or Artificial Opening (ICD-10-PCS; principal; 2017-09-23)
DX: I50.33 Acute on chronic diastolic (congestive) heart failure (principal); J96.22 Acute and chronic respiratory failure with hypercapnia; J69.0 Pneumonitis due to inhalation of food and vomit; G93.40 Encephalopathy, unspecified; J96.21 Acute and chronic respiratory failure with hypoxia; J44.0 Chronic obstructive pulmonary disease with (acute) lower respiratory infection; L03.116 Cellulitis of left lower limb; E66.2 Morbid (severe) obesity with alveolar hypoventilation; Z68.43 Body mass index [BMI] 50.0-59.9, adult; Z66 Do not resuscitate; J20.9 Acute bronchitis, unspecified; E03.9 Hypothyroidism, unspecified; E11.9 Type 2 diabetes mellitus without complications; I25.10 Atherosclerotic heart disease of native coronary artery without angina pectoris; I11.0 Hypertensive heart disease with heart failure; K21.9 Gastro-esophageal reflux disease without esophagitis; M15.9 Polyosteoarthritis, unspecified; E78.5 Hyperlipidemia, unspecified; F32.9 Major depressive disorder, single episode, unspecified; D64.9 Anemia, unspecified; F41.9 Anxiety disorder, unspecified; E83.42 Hypomagnesemia; E87.6 Hypokalemia; K59.00 Constipation, unspecified; I45.10 Unspecified right bundle-branch block; I25.2 Old myocardial infarction; Z86.12 Personal history of poliomyelitis; Z79.82 Long term (current) use of aspirin; Z79.899 Other long term (current) drug therapy; Z95.5 Presence of coronary angioplasty implant and graft; Z88.6 Allergy status to analgesic agent; Z90.49 Acquired absence of other specified parts of digestive tract; Z90.710 Acquired absence of both cervix and uterus; Z87.891 Personal history of nicotine dependence; Z83.3 Family history of diabetes mellitus; Z82.49 Family history of ischemic heart disease and other diseases of the circulatory system
CPT/HCPCS: 36415; 36600; 71045; 80048; 80053; 81001; 82140; 82803; 82962; 83605; 83735; 84484; 85025; 85379; 85610; 87040; 87086; 93005; 93010; 94660; 94667; 94668; 94762; 96365; 99285; G8978-GP; G8979-GP; J0696; J1644; J1815; J1940; J1956; J2060; J2765; J2920; J3475; J3490; J7030; J7040; J7512; J7620

== ENCOUNTER 2017-11-06 14:02 | Inpatient (IN) | payer MEDICARE, OTHER ==
[2017-11-06] MEDS ORDERED: NORMAL SALINE 1000 ML 1,000 ML IV PRN (14:12)
--- NOTE | 2017-11-06 14:12 | ER Document Report ---
ED General - General Stated Complaint: RESPIRATORY DISTRESS Time Seen by Provider: 11/06/17 14:10 Notes: 72-year-old female. Coming from home in respiratory distress. History of COPD and CHF. Oxygen saturations were 68%. Unable to communicate with EMS. EMS established IV and gave a liter fluid bolus as blood pressure was in the 60s. Arrival patient was breathing more comfortably on CPAP. Placed on BiPAP. Answering questions appropriately. Chest pain. Denies fever. When asked if she needed to be intubated if she would allow that she shook her head no. When asked if her heart stopped or she wanted to be revived she shook her head no. TRAVEL OUTSIDE OF THE [place] IN LAST 30 DAYS: No - HPI Onset: Just prior to arrival - Related Data Allergies/Adverse Reactions: hydromorphone HCl [From Dilaudid] Allergy (Severe, Verified 09/10/17 19:00) Respiratory arrest codeine [Codeine] Allergy (Intermediate, Verified 09/10/17 19:00) Hallucinations Past Medical History - General Information source: Patient, [facility] Records - Social History Smoking Status: Former Smoker Frequency of alcohol use: None Drug Abuse: None Lives with: Alone Family History: DM, Hyperlipidemia, Hypertension - Past Medical History Cardiac Medical History: Reports: Hx Congestive Heart Failure - Diastolic, Hx Coronary Artery Disease, Hx Heart Attack - cardiac stents x 2, Hx Hypercholesterolemia, Hx Hypertension, Hx Heart Murmur - aortic stenosis Denies: Hx DVT, Hx Pulmonary Embolism Pulmonary Medical History: Reports: Hx Asthma, Hx Bronchitis, Hx COPD, Hx Sleep Apnea - Bipap Denies: Hx Pneumonia, Hx Tuberculosis Neurological Medical History: Denies: Hx Cerebrovascular Accident, Hx Seizures Endocrine Medical History: Reports: Hx Diabetes Mellitus Type 2, Hx Hypothyroidism. Denies: Hx Diabetes Mellitus Type 1, Hx Hyperthyroidism Renal/ Medical History: Denies: Hx Peritoneal Dialysis GI Medical History: Reports: Hx Gastroesophageal Reflux Disease, Hx Ulcer. Denies: Hx Cirrhosis, Hx Hepatitis Musculoskeltal Medical History: Reports Hx Arthritis - generalized Skin Medical History: Reports Hx Cellulitis Psychiatric Medical History: Reports: Hx Depression Infectious Medical History: Denies: Hx Hepatitis Past Surgical History: Reports: Hx Appendectomy, Hx Colostomy - then reversed, Hx Hysterectomy, Hx Neurologic Surgery - spinal fusion, Hx Orthopedic Surgery - carpal tunnel, polio surgery to left leg. Denies: Hx Pacemaker - Immunizations Immunizations up to date: Yes Hx Diphtheria, Pertussis, Tetanus Vaccination: Yes Hx Pneumococcal Vaccination: 08/18/14 Review of Systems - Review of Systems -: Yes ROS unobtainable due to patient's medical condition Physical Exam - Vital signs Vitals: Resp Pulse Ox 9 L 100 11/06/17 14:06 11/06/17 14:06 Interpretation: Hypotensive, Tachycardic - General General appearance: Appears well, Alert - HEENT Head: Normocephalic, Atraumatic Eyes: Normal Pupils: PERRL - Respiratory Respiratory status: Respiratory distress, Labored Chest status: Nontender Breath sounds: Rhonchi. No: Wheezing Chest palpation: Normal - Cardiovascular Rhythm: Regular, Tachycardia Heart sounds: Normal auscultation Murmur: No - Abdominal Inspection: Normal Distension: No distension Bowel sounds: Normal Tenderness: Nontender Organomegaly: No organomegaly - Back Back: Normal, Nontender - Extremities General upper extremity: Normal inspection, Nontender, Normal color, Normal ROM , Normal temperature General lower extremity: Normal inspection, Nontender, Normal color, Normal ROM , Normal temperature, Normal weight bearing, Other - Left lower extremity foot wrapped in some sort of dressing. No: Berkley's sign - Neurological Neuro grossly intact: Yes Cognition: Normal Orientation: AAOx4 Zaki Coma Scale Eye Opening: Spontaneous Zaki Coma Scale Verbal: Oriented [place] Coma Scale Motor: Obeys Commands Zaki Coma Scale Total: 15 Speech: Normal Motor strength normal: LUE, RUE, LLE, RLE Sensory: Normal - Psychological Associated symptoms: Normal affect, Normal mood - Skin Skin Temperature: Warm Skin Moisture: Dry Skin Color: Normal Course - Re-evaluation Re-evalutation: 11/06/17 15:15 Patient is requesting DNR at time of arrival. Does not want any further action performed. We will treat her conservatively at this time. Waiting for hospitalist to call back. And on Lasix antibiotics and aspirin. Patient has mildly elevated troponin. Has some nonspecific T-wave abnormalities and PVCs with an incomplete right bundle branch block on EKG. Arterial blood gas shows patient is profoundly hypercarbic with pH 7.1. 11/06/17 15:55 Vision in respiratory failure. Consulted hospitalist for admit at this time. Patient is DNR. - Vital Signs Vital signs: Temp Pulse Resp BP Pulse Ox 96.8 F L 23 H 119/60 100 11/06/17 15:41 11/06/17 15:41 11/06/17 15:41 11/06/17 15:41 - Laboratory Result Diagrams: 11/06/17 14:17 11/06/17 14:17 Laboratory results interpreted by me: 11/06/17 11/06/17 11/06/17 14:13 14:17 14:17 RBC 3.51 L Hgb 9.5 L Hct 31.0 L MCH 26.9 L MCHC 30.5 L RDW 18.3 H Seg Neuts % (Manual) 80 H Lymphocytes % (Manual) 11 L Metamyelocytes % 2 H Carbonic Acid 4.09 H ABG pH 7.12 L* ABG pCO2 135.8 H* ABG pO2 198.8 H ABG HCO3 43.5 H ABG Total CO2 47.6 H ABG O2 Saturation 98.8 H Sodium 136.8 L Potassium 5.3 H Chloride 86 L Carbon Dioxide 41 H* Glucose 256 H Creatine Kinase 26 L NT-Pro-B Natriuret Pep Total Protein 6.2 L 11/06/17 14:17 RBC Hgb Hct MCH MCHC RDW Seg Neuts % (Manual) Lymphocytes % (Manual) Metamyelocytes % Carbonic Acid ABG pH ABG pCO2 ABG pO2 ABG HCO3 ABG Total CO2 ABG O2 Saturation Sodium Potassium Chloride Carbon Dioxide Glucose Creatine Kinase NT-Pro-B Natriuret Pep 91486 H Total Protein - EKG Interpretation by Co EKG shows normal: Sinus rhythm [place]/QRS: Left axis deviation, RBBB Additional EKG results interpreted by me: 11/06/17 15:16 . Frequent PVCs. Critical Care Note - Critical Care Note Total time excluding time spent on procedures (mins): 90 Comments: Hypotension, hypercarbia, altered mental status, respiratory distress, elevated cardiac troponin Discharge - Discharge Clinical Impression: Troponin level elevated Acute respiratory failure Qualifiers: Respiratory failure complication: hypercapnia Qualified Code(s): J96.02 - Acute respiratory failure with hypercapnia Pneumonia Qualifiers: Pneumonia type: due to unspecified organism Laterality: left Lung location: lower lobe of lung Qualified Code(s): J18.1 - Lobar pneumonia, unspecified organism Condition: Critical Disposition: ADMITTED INPATIENT Admitting Provider: Hospitalist - [facility] Admitted: [facility]
[2017-11-06 14:33] LABS: ARTERIAL BLOOD H2CO3 4.09 mmol/L (1.05-1.35); ARTERIAL BLOOD HCO3 43.5 mmol/L (20-26); ARTERIAL BLOOD O2 SATURATION 98.8 % (94-98); ARTERIAL BLOOD PO2 198.8 mmHg (80-100); ARTERIAL BLOOD TOTAL CO2 47.6 mmol/L (21-25)
[2017-11-06 14:36] LABS: HEMOGLOBIN 9.5 g/dL (12.0-15.5); MEAN CORPUSCULAR HEMOGLOBIN 26.9 pg (27.0-33.4); MEAN CORPUSCULAR HGB CONC 30.5 g/dL (32.0-36.0); MEAN CORPUSCULAR VOLUME 88 fl (80-97); PLATELET COUNT 384 10^3/uL (150-450); RED BLOOD COUNT 3.51 10^6/uL (3.72-5.28); RED CELL DISTRIBUTION WIDTH 18.3 % (11.5-14.0); WHITE BLOOD COUNT 9.1 10^3/uL (4.0-10.5)
[2017-11-06 14:37] LABS: ARTERIAL BLOOD FIO2 80%
[2017-11-06 14:42] LABS: ARTERIAL BLOOD PCO2 135.8 mmHg (35-45); ARTERIAL BLOOD PH 7.12 (7.35-7.45)
[2017-11-06] MEDS ORDERED: NORMAL SALINE 1000 ML 1,000 ML IV ONE (14:49)
[2017-11-06 14:51] LABS: ALANINE AMINOTRANSFERASE 32 U/L (9-52); ALBUMIN 3.6 g/dL (3.5-5.0); ALKALINE PHOSPHATASE 76 U/L (38-126); ASPARTATE AMINO TRANSFERASE 22 U/L (14-36); BILIRUBIN,DIRECT 0.2 mg/dL (0.0-0.4); BILIRUBIN,TOTAL 0.4 mg/dL (0.2-1.3); BLOOD UREA NITROGEN 20 mg/dL (7-20); CALCIUM 9.1 mg/dL (8.4-10.2); CHLORIDE 86 mmol/L (98-107); CREATINE KINASE 26 U/L (30-135); GLUCOSE 256 mg/dL (75-110); POTASSIUM 5.3 mmol/L (3.6-5.0); SODIUM 136.8 mmol/L (137-145); TOTAL PROTEIN 6.2 g/dL (6.3-8.2)
--- NOTE | 2017-11-06 14:54 | RADIOLOGY REPORT (SQ) ---
EXAM DESCRIPTION: CHEST SINGLE VIEW COMPLETED DATE/TIME: 11/06/2017 2:33 pm REASON FOR STUDY: sob COMPARISON: 10/06/2017 EXAM PARAMETERS: NUMBER OF VIEWS: One view. TECHNIQUE: Single frontal radiographic view of the chest acquired. RADIATION DOSE: NA LIMITATIONS: None. FINDINGS: LUNGS AND PLEURA: There continues to be considerable opacification in the left base. MEDIASTINUM AND HILAR STRUCTURES: No masses. Contour normal. HEART AND VASCULAR STRUCTURES: Heart normal in size. Normal vasculature. BONES: Significant scoliosis is present. HARDWARE: None in the chest. OTHER: No other significant finding. IMPRESSION: Cannot exclude persistent or recurrent left lower lobe pneumonia. TECHNICAL DOCUMENTATION: JOB ID: [id number] [employer]- All Rights Reserved Reading location - IP/workstation name: [email or web address]
[2017-11-06 14:57] LABS: ANION GAP 10 (5-19)
[2017-11-06 14:58] LABS: CARBON DIOXIDE 41 mmol/L (22-30)
[2017-11-06 14:59] LABS: ABSOLUTE MONOCYTES # (MANUAL) 0.3 10^3/uL (0.1-1.4); ABSOLUTE NEUTROPHILS# (MANUAL) 7.7 10^3/uL (1.7-8.2); BAND NEUTROPHILS % (MANUAL) 3 % (3-5); BASOPHILS % (MANUAL) 1 % (0-2); EOSINOPHILS % (MANUAL) 0 % (0-6); LYMPHOCYTES % (MANUAL) 11 % (13-45); METAMYELOCYTES % (MANUAL) 2 % (0); MONOCYTES % (MANUAL) 3 % (3-13); SEGMENTED NEUTROPHILS % (MAN) 80 % (42-78); TOTAL CELLS COUNTED 100
[2017-11-06 15:00] LABS: ANISOCYTOSIS 2+; PLATELET COMMENT ADEQUATE; POIKILOCYTOSIS 2+; POLYCHROMASIA 1+; STOMATOCYTES 2+; TOXIC GRANULATION 1+
[2017-11-06 15:02] LABS: CREATINE KINASE MB 1.88 ng/mL (<4.55)
[2017-11-06 15:05] LABS: TROPONIN I 0.04 ng/mL
[2017-11-06] MEDS ORDERED: FUROSEMIDE INJ/PF 40 MG/4 ML SDV IV ONE (15:10)
[2017-11-06] MEDS ORDERED: ALBUTEROL SULFATE 0.083% NEB 2.5 MG/3 ML AMPUL NEB ONE (15:10)
[2017-11-06] MEDS ORDERED: METHYLPREDNISOLONE INJ 125 MG/2 ML SDV IV ONE (15:10)
[2017-11-06] MEDS ORDERED: ASPIRIN 300 MG SUPP, RECTAL PR ONE (15:11)
[2017-11-06] MEDS ORDERED: ONDANSETRON HCL INJ/PF 4 MG/2 ML SDV IV PRN (15:59)
[2017-11-06] MEDS ORDERED: LEVOFLOXACIN 500 MG/D5W RTU 500 MG/100 ML RTUPB IV ONE (16:00)
[2017-11-06] MEDS ORDERED: LEVOFLOXACIN 500 MG/D5W RTU 500 MG/100 ML RTUPB IV SCH (16:00)
[2017-11-06] MEDS ORDERED: DEXTROSE 50%-WATER 25 GM/50 ML DISP.SYRIN IV PRN ×2 (16:32)
[2017-11-06] MEDS ORDERED: DEXTROSE 40% GEL 15 GM TUBE PO PRN ×2 (16:32)
[2017-11-06] MEDS ORDERED: GLUCAGON,HUMAN RECOMB 1 MG INJ IM PRN (16:32)
[2017-11-06] MEDS ORDERED: INSULIN REG, HUMAN 100 UNIT/ML 3 ML VIAL (PYX) IV ONE (17:00)
[2017-11-06] MEDS ORDERED: ACETYLCYSTEINE 20% SOLN 800 MG/4 ML VIAL.NEB NEB ONE (17:00)
--- NOTE | 2017-11-06 17:00 | PDOC H&P ---
History of Present Illness Admission Date/PCP: 11/06/17 16:08 Patient complains of: Unable to obtain from patient History of Present Illness: ALBERTO DIAL is a 72 year old female who is well-known to our service due to recent hospitalization under similar circumstances. According to patient's sister patient has been having shortness of breath which has been getting progressively worse over the past 4 days. Patient was discharged on AVAPS and she has been using it except for the past 4 days because was not able to breathe. Accordingly patient did not tolerate the mask and she was desaturating. Dr. Sanders was contacted by [employer]. The company agency sales representative went to patient's house and manage the machines setting while Dr Sanders was on the phone. Despite adjustments, patient continued to be short of breath. Sister called EMS and on arrival pulse ox was in the 68% and BP was in the 60s. ABG obtained in ED showed a PCO2 of 135. Patient is DO NOT RESUSCITATE and does not wish to be intubated. Sister states that there is no history of fever, chills or cough. She also states that patient had been having to sit on the sofa because of shortness of breath. Due to her presentation the hospitalist service was consulted and prompted to admit Past Medical History Cardiac Medical History: Reports: Congestive Heart Failure - Diastolic, Coronary Artery Disease, Myocardial Infarction - cardiac stents x 2, Hyperlipidema, Hypertension, Heart Murmur - aortic stenosis Denies: DVT, Pulmonary Embolism Pulmonary Medical History: Reports: Asthma, Bronchitis, Chronic Obstructive Pulmonary Disease (COPD), Sleep Apnea - Bipap Denies: Pneumonia, Tuberculosis EENT Medical History: Reports: None Neurological Medical History: Denies: Seizures Endocrine Medical History: Reports: Diabetes Mellitus Type 2, Hypothyroidism Denies: Diabetes Mellitus Type 1, Hyperthyroidism Malignancy Medical History: Reports: None GI Medical History: Reports: Gastroesophageal Reflux Disease Denies: Cirrhosis, Hepatitis Musculoskeltal Medical History: Reports: Arthritis - generalized Psychiatric Medical History: Reports: Depression Traumatic Medical History: Reports: None Hematology: Reports: Anemia Infectious Medical History: Reports: Other Past Surgical History Past Surgical History: Reports: Appendectomy, Colostomy - then reversed, Hysterectomy, Orthopedic Surgery - carpal tunnel, polio surgery to left leg Denies: Pacemaker Social History Information Source: Relative Lives with: Alone Smoking Status: Former Smoker Frequency of Alcohol Use: None Hx Recreational Drug Use: No Drugs: None Hx Prescription Drug Abuse: No Family History Family History: DM, Hyperlipidemia, Hypertension Parental Family History Reviewed: Yes Children Family History Reviewed: Yes Sibling(s) Family History Reviewed.: Yes Medication/Allergy Home Medications: Albuterol Sulfate [Albuterol Sulfate 2.5mg/3 mL] 1 vial IH Q4 PRN 09/23/17 Aspirin [Ecotrin 81 mg EC Tablet] 81 mg PO DAILY 09/23/17 Atorvastatin Calcium [Lipitor 20 mg Tablet] 20 mg PO QHS 09/23/17 Budesonide/Formoterol Fumarate [Symbicort 160-4.5 Mcg Inhaler] 2 puff IH BID 02/02 Calcium Carbonate/Vitamin D3 [Calcium 500-Vit D3 200 Caplet] 1 tab PO DAILY 02/02 Clopidogrel Bisulfate [Plavix 75 mg Tablet] 75 mg PO DAILY 09/23/17 Fexofenadine HCl [Rin] 180 mg PO DAILY 09/23/17 Liothyronine Sodium [Cytomel] 5 mcg PO DAILY 09/23/17 Montelukast Sodium [Singulair 10 mg Tablet] 10 mg PO DAILY 09/23/17 Omeprazole 40 mg PO DAILY 09/23/17 Potassium Chloride [Klor-Con 10 Meq Tablet.sa] 20 meq PO DAILY 09/23/17 Furosemide [Lasix 20 mg Tablet] 20 mg PO QAM #30 tablet 10/07/17 Prednisone [Deltasone 10 mg Tablet] 10 mg PO DAILY #5 tablet 10/07/17 Metformin HCl [Glucophage 500 mg Tablet] 500 mg PO DAILY 10/17/17 Allergies/Adverse Reactions: hydromorphone HCl [From Dilaudid] Allergy (Severe, Verified 09/10/17 19:00) Respiratory arrest codeine [Codeine] Allergy (Intermediate, Verified 09/10/17 19:00) Hallucinations Review of Systems ROS unobtainable: Due to mental status Physical Exam Vital Signs: Temp Pulse Resp BP Pulse Ox 96.8 F L 23 H 119/60 100 11/06/17 15:41 11/06/17 15:41 11/06/17 15:41 11/06/17 15:41 General appearance: PRESENT: morbidly obese Head exam: PRESENT: atraumatic, normocephalic Eye exam: PRESENT: conjunctiva pale, EOMI, PERRLA Ear exam: PRESENT: normal external ear exam Mouth exam: PRESENT: moist Neck exam: PRESENT: full ROM. ABSENT: JVD, lymphadenopathy, tenderness Respiratory exam: PRESENT: decreased breath sounds, tachypnea Cardiovascular exam: PRESENT: RRR, systolic murmur. ABSENT: diastolic murmur Vascular exam: PRESENT: normal capillary refill GI/Abdominal exam: PRESENT: normal bowel sounds, soft. ABSENT: tenderness Extremities exam: PRESENT: +2 edema. ABSENT: full ROM Musculoskeletal exam: ABSENT: ambulatory Neurological exam: PRESENT: alert, oriented to person. ABSENT: oriented to time , oriented to situation Skin exam: PRESENT: pallor, petechiae Results Impressions: Chest X-Ray 11/06/17 14:11 IMPRESSION: Cannot exclude persistent or recurrent left lower lobe pneumonia. Assessment & Plan - Diagnosis (1) Acute on chronic diastolic (congestive) heart failure Is this a current diagnosis for this admission?: Yes Plan: Patient will be placed on Lasix IV and will continue outpatient regimen as blood pressure tolerates it. Will add midodrine (2) Acute and chronic respiratory failure with hypercapnia Is this a current diagnosis for this admission?: Yes Plan: Accordingly patient went home with AVAPS. She had not been using it for the past 4 days. Home health nurse had been contacted Dr. Sanders and will proceed with consult. Continue BiPAP for now (3) Morbid obesity with BMI of 45.0-49.9, adult Is this a current diagnosis for this admission?: Yes Plan: Contributing to hypoventilatory syndrome (4) History of poliomyelitis Is this a current diagnosis for this admission?: Yes Plan: Contributing to restrictive component (5) Troponin level elevated Is this a current diagnosis for this admission?: Yes Plan: Likely due to myocardial demand ischemia (6) Anemia Qualifiers: Anemia type: unspecified type Qualified Code(s): D64.9 - Anemia, unspecified Is this a current diagnosis for this admission?: Yes Plan: To trend (7) Obesity hypoventilation syndrome Is this a current diagnosis for this admission?: Yes Plan: Long-standing problem. Patient bed bound (8) Sleep apnea Qualifiers: Sleep apnea type: obstructive Qualified Code(s): G47.33 - Obstructive sleep apnea (adult) (pediatric) Is this a current diagnosis for this admission?: Yes Plan: Contributor to pulmonary hypertension (9) Diabetes mellitus type 2 in obese Is this a current diagnosis for this admission?: Yes Plan: To place patient on Humalog sliding scale and bedside glucose AC and HS (10) Hypothyroid Qualifiers: Hypothyroidism type: unspecified Qualified Code(s): E03.9 - Hypothyroidism , unspecified Is this a current diagnosis for this admission?: Yes Plan: To continue outpatient regimen (11) Hyperkalemia Is this a current diagnosis for this admission?: Yes Plan: To order calcium gluconate and regular insulin 1. To trend - Time Time Spent: 30 to 50 Minutes Medications reviewed and adjusted accordingly: Yes Anticipated discharge: Home with Homehealth Within: within 72 hours - Inpatient Certification Based on my medical assessment, after consideration of the patient's comorbidities, presenting symptoms, or acuity I expect that the services needed warrant INPATIENT care.: Yes I certify that my determination is in accordance with my understanding of Medicare's requirements for reasonable and necessary INPATIENT services [42 CFR 412.3e].: Yes Medical Necessity: Need Close Monitoring Due to Risk of Patient Decompensation, Need For Continuous Telemetry Monitoring, Need for Nebulizer Therapy and Monitoring of Response
[2017-11-06] MEDS ORDERED: CALCIUM GLUCONATE 2,222 MG in DEXTROSE 5%-WATER 100 ML IV ONE (17:30)
[2017-11-06] MEDS: MIDODRINE HCL 5 MG TABLET PO SCH (19:13)
[2017-11-06] MEDS: IPRATROPIUM/ALBUTEROL 0.5-2.5 MG/3 ML AMPUL NEB SCH (20:11)
--- NOTE | 2017-11-06 22:07 | EKG REPORT ---
SEVERITY:- ABNORMAL ECG - SINUS RHYTHM MULTIPLE ATRIAL PREMATURE COMPLEXES RIGHT BUNDLE BRANCH BLOCK LVH WITH SECONDARY REPOLARIZATION ABNORMALITY : Confirmed by: Odilon Beckwith 06-Nov-2017 22:06:33
[2017-11-06] MEDS: FUROSEMIDE INJ/PF 40 MG/4 ML SDV IV SCH (22:57)
[2017-11-06] MEDS: HEPARIN SOD (PORCINE) 5,000 UNIT/ML 1 ML SYRINGE SUBCUT SCH (22:58)
[2017-11-07 04:55] LABS: HEMATOCRIT 28.5 % (36.0-47.0); HEMOGLOBIN 8.9 g/dL (12.0-15.5); MEAN CORPUSCULAR HGB CONC 31.1 g/dL (32.0-36.0); MEAN CORPUSCULAR VOLUME 87 fl (80-97); PLATELET COUNT 345 10^3/uL (150-450); RED BLOOD COUNT 3.28 10^6/uL (3.72-5.28); WHITE BLOOD COUNT 3.7 10^3/uL (4.0-10.5)
[2017-11-07 05:06] LABS: BLOOD UREA NITROGEN 19 mg/dL (7-20); CALCIUM 9.4 mg/dL (8.4-10.2); CHLORIDE 85 mmol/L (98-107); GLUCOSE 166 mg/dL (75-110); POTASSIUM 4.9 mmol/L (3.6-5.0); SODIUM 138.2 mmol/L (137-145)
[2017-11-07 05:13] LABS: ANION GAP 8 (5-19)
[2017-11-07 05:14] LABS: CARBON DIOXIDE 45 mmol/L (22-30)
[2017-11-07 05:33] LABS: ABSOLUTE LYMPHOCYTES# (MANUAL) 0.7 10^3/uL (0.5-4.7); ABSOLUTE MONOCYTES # (MANUAL) 0.1 10^3/uL (0.1-1.4); ABSOLUTE NEUTROPHILS# (MANUAL) 2.9 10^3/uL (1.7-8.2); BASOPHILS % (MANUAL) 0 % (0-2); EOSINOPHILS % (MANUAL) 0 % (0-6); LYMPHOCYTES % (MANUAL) 18 % (13-45); METAMYELOCYTES % (MANUAL) 2 % (0); MONOCYTES % (MANUAL) 3 % (3-13); SEGMENTED NEUTROPHILS % (MAN) 77 % (42-78); TOTAL CELLS COUNTED 100
[2017-11-07 05:35] LABS: ANISOCYTOSIS 2+; HYPOCHROMASIA SLIGHT; OVALOCYTES 1+; POIKILOCYTOSIS SLIGHT; POLYCHROMASIA 1+
[2017-11-07 05:36] LABS: PLATELET COMMENT ADEQUATE; PLATELET LARGE PRESENT
[2017-11-07 05:52] LABS: ARTERIAL BLOOD BASE EXCESS 16.5 mmol/L; ARTERIAL BLOOD H2CO3 2.84 mmol/L (1.05-1.35); ARTERIAL BLOOD HCO3 45.7 mmol/L (20-26); ARTERIAL BLOOD O2 SATURATION 97.1 % (94-98); ARTERIAL BLOOD PO2 108.3 mmHg (80-100); ARTERIAL BLOOD TOTAL CO2 48.6 mmol/L (21-25)
[2017-11-07 05:55] LABS: ARTERIAL BLOOD FIO2 40%
[2017-11-07 05:58] LABS: ARTERIAL BLOOD PCO2 94.2 mmHg (35-45)
[2017-11-07] MEDS: FUROSEMIDE INJ/PF 40 MG/4 ML SDV IV SCH ×2 (06:21→16:56)
[2017-11-07] MEDS: HEPARIN SOD (PORCINE) 5,000 UNIT/ML 1 ML SYRINGE SUBCUT SCH ×3 (06:21→22:04)
[2017-11-07] MEDS: IPRATROPIUM/ALBUTEROL 0.5-2.5 MG/3 ML AMPUL NEB SCH ×3 (08:36→20:20)
[2017-11-07] MEDS: ACETYLCYSTEINE 20% SOLN 800 MG/4 ML VIAL.NEB NEB SCH ×2 (08:36→20:21)
[2017-11-07] MEDS: MAGNESIUM SULFATE/D5W 1 GM/100 ML RTUPB IV SCH ×3 (08:39→11:49)
[2017-11-07] MEDS ORDERED: LORAZEPAM INJ 2 MG/1 ML VIAL IV PRN (10:00)
[2017-11-07] MEDS ORDERED: LEVOFLOXACIN 500 MG/D5W RTU 500 MG/100 ML RTUPB IV SCH (10:00)
[2017-11-07] MEDS ORDERED: LORAZEPAM INJ 2 MG/1 ML VIAL ONE (10:16)
[2017-11-07] MEDS: OXYCODONE-ACETAMINOPHEN 5-325 MG TABLET PO PRN (10:19)
[2017-11-07] MEDS: DOCUSATE SODIUM 100 MG CAPSULE PO SCH (10:26)
[2017-11-07] MEDS: MIDODRINE HCL 5 MG TABLET PO SCH ×3 (10:26→16:56)
[2017-11-07] MEDS ORDERED: METOPROLOL SUCCINATE 25 MG TAB.SR.24H PO ONE (14:00)
[2017-11-07] MEDS: INSULIN LISPRO 100 UNIT/ML 3 ML VIAL SUBCUT PRN (16:57)
--- NOTE | 2017-11-07 17:28 | PDOC PROGRESS REPORT ---
Subjective Progress Note for:: 11/07/17 Subjective:: Complains of shortness of breath. Nurse reported off and on atrial fibrillation Review of system All organ systems evaluated and negative except as in subjective All significant laboratories and diagnostics have Reason For Visit: ACUTE ON CHRONIC HYPOXIC/HYPERDAPNIC RESPIRATORY Physical Exam Vital Signs: Temp Pulse Resp BP Pulse Ox 97.4 F 72 12 113/45 L 100 11/07/17 16:17 11/07/17 16:17 11/07/17 16:17 11/07/17 16:17 11/07/17 16:17 Intake & Output 11/06/17 11/07/17 11/08/17 06:59 06:59 06:59 Intake Total 110 360 Output Total 1100 1100 Balance -990 -740 Weight 117.1 kg General appearance: PRESENT: cooperative, morbidly obese Head exam: PRESENT: atraumatic, normocephalic Eye exam: PRESENT: conjunctiva pink, EOMI, PERRLA Neck exam: PRESENT: full ROM. ABSENT: JVD, lymphadenopathy, tenderness Respiratory exam: PRESENT: decreased breath sounds Cardiovascular exam: PRESENT: irregular rhythm. ABSENT: diastolic murmur, systolic murmur GI/Abdominal exam: PRESENT: normal bowel sounds, soft. ABSENT: tenderness Extremities exam: PRESENT: full ROM, +2 edema Musculoskeletal exam: ABSENT: ambulatory Neurological exam: PRESENT: alert, awake, oriented to person, oriented to place Psychiatric exam: PRESENT: appropriate affect, normal mood Skin exam: PRESENT: petechiae Results Laboratory Results: 11/07/17 04:34 11/07/17 04:34 11/07/17 11/07/17 11/07/17 04:34 04:34 05:45 WBC 3.7 L RBC 3.28 L Hgb 8.9 L Hct 28.5 L MCV 87 MCH 27.0 MCHC 31.1 L RDW 18.0 H Plt Count 345 Seg Neutrophils % Not Reportable Lymphocytes % Not Reportable Monocytes % Not Reportable Eosinophils % Not Reportable Basophils % Not Reportable Absolute Neutrophils Not Reportable Absolute Lymphocytes Not Reportable Absolute Monocytes Not Reportable Absolute Eosinophils Not Reportable Absolute Basophils Not Reportable Carbonic Acid 2.84 H HCO3/H2CO3 Ratio 16:1 ABG pH 7.30 L ABG pCO2 94.2 H* ABG pO2 108.3 H ABG HCO3 45.7 H ABG O2 Saturation 97.1 ABG Base Excess 16.5 FiO2 40% Sodium 138.2 Potassium 4.9 Chloride 85 L Carbon Dioxide 45 H* Anion Gap 8 BUN 19 Creatinine 0.55 Est GFR ( Amer) > 60 Est GFR (Non-Af Amer) > 60 Glucose 166 H Calcium 9.4 Magnesium 1.4 L Impressions: Chest X-Ray 11/06/17 14:11 IMPRESSION: Cannot exclude persistent or recurrent left lower lobe pneumonia. Assessment & Plan - Diagnosis (1) Acute on chronic diastolic (congestive) heart failure Is this a current diagnosis for this admission?: Yes Plan: To decrease Lasix IV. Continue midodrine (2) Acute and chronic respiratory failure with hypercapnia Is this a current diagnosis for this admission?: Yes Plan: As per Dr Sanders (3) Morbid obesity with BMI of 45.0-49.9, adult Is this a current diagnosis for this admission?: Yes Plan: Contributing to hypoventilatory syndrome (4) History of poliomyelitis Is this a current diagnosis for this admission?: Yes Plan: Contributing to restrictive component (5) Troponin level elevated Is this a current diagnosis for this admission?: Yes Plan: Likely due to myocardial demand ischemia (6) Anemia Qualifiers: Anemia type: unspecified type Qualified Code(s): D64.9 - Anemia, unspecified Is this a current diagnosis for this admission?: Yes Plan: To trend (7) Obesity hypoventilation syndrome Is this a current diagnosis for this admission?: Yes Plan: Long-standing problem. Patient bed bound (8) Sleep apnea Qualifiers: Sleep apnea type: obstructive Qualified Code(s): G47.33 - Obstructive sleep apnea (adult) (pediatric) Is this a current diagnosis for this admission?: Yes Plan: Contributor to pulmonary hypertension (9) Diabetes mellitus type 2 in obese Is this a current diagnosis for this admission?: Yes Plan: Add Lantus and continue Humalog sliding scale and bedside glucose AC and HS (10) Hypothyroid Qualifiers: Hypothyroidism type: unspecified Qualified Code(s): E03.9 - Hypothyroidism , unspecified Is this a current diagnosis for this admission?: Yes Plan: Continue outpatient regimen (11) Hyperkalemia Is this a current diagnosis for this admission?: Yes Plan: Resolved (12) Atrial fibrillation Qualifiers: Atrial fibrillation type: paroxysmal Qualified Code(s): I48.0 - Paroxysmal atrial fibrillation Is this a current diagnosis for this admission?: Yes Plan: Add low dose Toprol XL - Time Time Spent with patient: 15-24 minutes Medications reviewed and adjusted accordingly: Yes Anticipated discharge: Home with Homehealth Within: within 72 hours - Inpatient Certification Based on my medical assessment, after consideration of the patient's comorbidities, presenting symptoms, or acuity I expect that the services needed warrant INPATIENT care.: Yes I certify that my determination is in accordance with my understanding of Medicare's requirements for reasonable and necessary INPATIENT services [42 CFR 412.3e].: Yes Medical Necessity: Need Close Monitoring Due to Risk of Patient Decompensation, Need For Continuous Telemetry Monitoring, Need for Nebulizer Therapy and Monitoring of Response
[2017-11-07] MEDS: ATORVASTATIN CALCIUM 20 MG TABLET PO SCH (22:00)
[2017-11-07] MEDS: BUDESONIDE/FORMOTEROL 160-4.5 MCG 60 PUFF/6 GM MDI IH SCH (22:02)
[2017-11-08] MEDS: FUROSEMIDE INJ/PF 40 MG/4 ML SDV IV SCH ×2 (05:40→17:15)
[2017-11-08] MEDS: HEPARIN SOD (PORCINE) 5,000 UNIT/ML 1 ML SYRINGE SUBCUT SCH ×3 (05:40→21:49)
[2017-11-08] MEDS: ACETYLCYSTEINE 20% SOLN 800 MG/4 ML VIAL.NEB NEB SCH ×2 (08:10→19:58)
[2017-11-08] MEDS: IPRATROPIUM/ALBUTEROL 0.5-2.5 MG/3 ML AMPUL NEB SCH ×3 (08:11→19:58)
[2017-11-08] MEDS: CLOPIDOGREL BISULFATE 75 MG TABLET PO SCH (09:23)
[2017-11-08] MEDS: OXYCODONE-ACETAMINOPHEN 5-325 MG TABLET PO PRN (09:23)
[2017-11-08] MEDS: CALCIUM CARBONATE 250 MG/VITAMIN D3 125 UNIT TABLET PO SCH (09:24)
[2017-11-08] MEDS: MIDODRINE HCL 5 MG TABLET PO SCH ×3 (09:24→17:15)
[2017-11-08] MEDS: LORATADINE 10 MG TABLET PO SCH (09:24)
[2017-11-08] MEDS: DOCUSATE SODIUM 100 MG CAPSULE PO SCH (09:25)
[2017-11-08] MEDS: ASPIRIN 81 MG TABLET, ENT COATED PO SCH (09:25)
[2017-11-08] MEDS: METOPROLOL SUCCINATE 25 MG TAB.SR.24H PO SCH (09:25)
[2017-11-08] MEDS: BUDESONIDE/FORMOTEROL 160-4.5 MCG 60 PUFF/6 GM MDI IH SCH ×2 (09:26→17:17)
[2017-11-08 09:46] LABS: ABSOLUTE LYMPHOCYTES (AUTO) 1.2 10^3/uL (0.5-4.7); ABSOLUTE MONOCYTES (AUTO) 0.6 10^3/uL (0.1-1.4); BASOPHILS % (AUTO) 0.5 % (0-2); EOSINOPHILS % (AUTO) 0.2 % (0-6); HEMATOCRIT 27.5 % (36.0-47.0); HEMOGLOBIN 8.6 g/dL (12.0-15.5); LYMPHOCYTES % (AUTO) 17.3 % (13-45); MEAN CORPUSCULAR HEMOGLOBIN 27.1 pg (27.0-33.4); MEAN CORPUSCULAR HGB CONC 31.4 g/dL (32.0-36.0); MEAN CORPUSCULAR VOLUME 86 fl (80-97); MONOCYTES % (AUTO) 8.7 % (3-13); PLATELET COUNT 342 10^3/uL (150-450); RED BLOOD COUNT 3.19 10^6/uL (3.72-5.28); RED CELL DISTRIBUTION WIDTH 18.4 % (11.5-14.0); SEGMENTED NEUTROPHILS % (AUTO) 73.3 % (42-78); TOTAL CELLS COUNTED % (AUTO) 100 %; WHITE BLOOD COUNT 6.8 10^3/uL (4.0-10.5)
[2017-11-08 09:59] LABS: BLOOD UREA NITROGEN 26 mg/dL (7-20); CALCIUM 8.9 mg/dL (8.4-10.2); CHLORIDE 82 mmol/L (98-107); GLUCOSE 72 mg/dL (75-110); POTASSIUM 3.9 mmol/L (3.6-5.0); SODIUM 138.8 mmol/L (137-145)
[2017-11-08] MEDS ORDERED: INSULIN GLARGINE,HUM.REC.ANLOG 1,000 UNIT/10 ML UNIT SUBCUT SCH (10:00)
[2017-11-08 10:09] LABS: ANION GAP 4 (5-19)
[2017-11-08 10:11] LABS: CARBON DIOXIDE 53 mmol/L (22-30)
[2017-11-08 12:30] LABS: ARTERIAL BLOOD BASE EXCESS 18.2 mmol/L; ARTERIAL BLOOD FIO2 35%; ARTERIAL BLOOD H2CO3 2.57 mmol/L (1.05-1.35); ARTERIAL BLOOD HCO3 46.4 mmol/L (20-26); ARTERIAL BLOOD PH 7.35 (7.35-7.45); ARTERIAL BLOOD PO2 77.2 mmHg (80-100)
[2017-11-08 12:32] LABS: ARTERIAL BLOOD PCO2 85.3 mmHg (35-45)
--- NOTE | 2017-11-08 14:40 | PDOC PROGRESS REPORT ---
Subjective Progress Note for:: 11/08/17 Subjective:: Patient refers that feels better. She was found eating breakfast Review of system All organ systems evaluated and negative except as in subjective All significant laboratories and diagnostics have Reason For Visit: ACUTE ON CHRONIC HYPOXIC/HYPERDAPNIC RESPIRATORY Physical Exam Vital Signs: Temp Pulse Resp BP Pulse Ox 98.3 F 63 17 105/48 L 97 11/08/17 02:58 11/08/17 02:58 11/08/17 04:00 11/08/17 02:58 11/08/17 02:58 Intake & Output 11/07/17 11/08/17 11/09/17 06:59 06:59 06:59 Intake Total 110 560 Output Total 1100 1550 Balance -990 -990 Weight 117.1 kg 116.4 kg General appearance: PRESENT: cooperative, morbidly obese Head exam: PRESENT: atraumatic, normocephalic Eye exam: PRESENT: conjunctiva pink, EOMI, PERRLA Ear exam: PRESENT: normal external ear exam Neck exam: PRESENT: full ROM. ABSENT: JVD, lymphadenopathy, tenderness Respiratory exam: PRESENT: clear to auscultation joel Cardiovascular exam: PRESENT: RRR. ABSENT: diastolic murmur, systolic murmur GI/Abdominal exam: PRESENT: normal bowel sounds, soft. ABSENT: tenderness Extremities exam: PRESENT: +2 edema. ABSENT: full ROM Musculoskeletal exam: ABSENT: ambulatory Neurological exam: PRESENT: alert, awake, oriented to person, oriented to place , oriented to time, oriented to situation Psychiatric exam: PRESENT: appropriate affect, normal mood Skin exam: PRESENT: erythema - Left lower extremity Results Laboratory Results: 11/07/17 04:34 11/07/17 04:34 Impressions: Chest X-Ray 11/06/17 14:11 IMPRESSION: Cannot exclude persistent or recurrent left lower lobe pneumonia. Assessment & Plan - Diagnosis (1) Acute on chronic diastolic (congestive) heart failure Is this a current diagnosis for this admission?: Yes Plan: Continue midodrine and Lasix IV (2) Acute and chronic respiratory failure with hypercapnia Is this a current diagnosis for this admission?: Yes Plan: As per Dr Sanders (3) Morbid obesity with BMI of 45.0-49.9, adult Is this a current diagnosis for this admission?: Yes Plan: Contributing to hypoventilatory syndrome (4) History of poliomyelitis Is this a current diagnosis for this admission?: Yes Plan: Contributing to restrictive component (5) Troponin level elevated Is this a current diagnosis for this admission?: Yes Plan: Likely due to myocardial demand ischemia (6) Anemia Qualifiers: Anemia type: unspecified type Qualified Code(s): D64.9 - Anemia, unspecified Is this a current diagnosis for this admission?: Yes Plan: To trend (7) Obesity hypoventilation syndrome Is this a current diagnosis for this admission?: Yes Plan: Long-standing problem. Patient bed bound (8) Sleep apnea Qualifiers: Sleep apnea type: obstructive Qualified Code(s): G47.33 - Obstructive sleep apnea (adult) (pediatric) Is this a current diagnosis for this admission?: Yes Plan: Contributor to pulmonary hypertension (9) Diabetes mellitus type 2 in obese Is this a current diagnosis for this admission?: Yes Plan: Continue Lantus and continue Humalog sliding scale and bedside glucose AC and HS (10) Hypothyroid Qualifiers: Hypothyroidism type: unspecified Qualified Code(s): E03.9 - Hypothyroidism , unspecified Is this a current diagnosis for this admission?: Yes Plan: Continue outpatient regimen (11) Hyperkalemia Is this a current diagnosis for this admission?: Yes Plan: Resolved (12) Atrial fibrillation Qualifiers: Atrial fibrillation type: paroxysmal Qualified Code(s): I48.0 - Paroxysmal atrial fibrillation Is this a current diagnosis for this admission?: Yes Plan: Continue low dose Toprol XL - Time Time Spent with patient: 15-24 minutes Medications reviewed and adjusted accordingly: Yes Anticipated discharge: Home with Homehealth Within: within 72 hours - Inpatient Certification Based on my medical assessment, after consideration of the patient's comorbidities, presenting symptoms, or acuity I expect that the services needed warrant INPATIENT care.: Yes I certify that my determination is in accordance with my understanding of Medicare's requirements for reasonable and necessary INPATIENT services [42 CFR 412.3e].: Yes Medical Necessity: Need Close Monitoring Due to Risk of Patient Decompensation, Need For Continuous Telemetry Monitoring, Need for Nebulizer Therapy and Monitoring of Response
[2017-11-08] MEDS: ATORVASTATIN CALCIUM 20 MG TABLET PO SCH (21:38)
[2017-11-09] MEDS: ALBUTEROL SULFATE 0.083% NEB 2.5 MG/3 ML AMPUL NEB PRN (01:26)
[2017-11-09 05:08] LABS: HEMATOCRIT 26.6 % (36.0-47.0); HEMOGLOBIN 8.5 g/dL (12.0-15.5); MEAN CORPUSCULAR HEMOGLOBIN 27.1 pg (27.0-33.4); MEAN CORPUSCULAR HGB CONC 31.9 g/dL (32.0-36.0); MEAN CORPUSCULAR VOLUME 85 fl (80-97); PLATELET COUNT 325 10^3/uL (150-450); RED BLOOD COUNT 3.12 10^6/uL (3.72-5.28); RED CELL DISTRIBUTION WIDTH 18.2 % (11.5-14.0); WHITE BLOOD COUNT 8.6 10^3/uL (4.0-10.5)
[2017-11-09 05:35] LABS: BLOOD UREA NITROGEN 26 mg/dL (7-20); CALCIUM 8.6 mg/dL (8.4-10.2); CHLORIDE 79 mmol/L (98-107); GLUCOSE 75 mg/dL (75-110); POTASSIUM 3.3 mmol/L (3.6-5.0)
[2017-11-09 05:47] LABS: CARBON DIOXIDE 54 mmol/L (22-30)
[2017-11-09 05:49] LABS: ABSOLUTE LYMPHOCYTES# (MANUAL) 1.4 10^3/uL (0.5-4.7); ABSOLUTE MONOCYTES # (MANUAL) 0.7 10^3/uL (0.1-1.4); ABSOLUTE NEUTROPHILS# (MANUAL) 6.3 10^3/uL (1.7-8.2); BASOPHILS % (MANUAL) 2 % (0-2); EOSINOPHILS % (MANUAL) 1 % (0-6); LYMPHOCYTES % (MANUAL) 16 % (13-45); MONOCYTES % (MANUAL) 8 % (3-13); SEGMENTED NEUTROPHILS % (MAN) 73 % (42-78); TOTAL CELLS COUNTED 100
[2017-11-09 05:51] LABS: ANION GAP 4 (5-19); ANISOCYTOSIS 2+; HYPOCHROMASIA 2+; PLATELET COMMENT ADEQUATE; POIKILOCYTOSIS 1+; POLYCHROMASIA 1+; TEAR DROP CELLS SLIGHT; TOXIC GRANULATION 1+
[2017-11-09] MEDS: FUROSEMIDE INJ/PF 40 MG/4 ML SDV IV SCH ×2 (05:55→18:06)
[2017-11-09] MEDS: HEPARIN SOD (PORCINE) 5,000 UNIT/ML 1 ML SYRINGE SUBCUT SCH ×3 (05:56→21:54)
[2017-11-09 06:54] LABS: ARTERIAL BLOOD BASE EXCESS 28.9 mmol/L; ARTERIAL BLOOD H2CO3 2.32 mmol/L (1.05-1.35); ARTERIAL BLOOD HCO3 56.4 mmol/L (20-26); ARTERIAL BLOOD O2 SATURATION 94.5 % (94-98); ARTERIAL BLOOD PH 7.48 (7.35-7.45); ARTERIAL BLOOD PO2 71.6 mmHg (80-100); ARTERIAL BLOOD TOTAL CO2 58.8 mmol/L (21-25)
[2017-11-09 06:55] LABS: ARTERIAL BLOOD FIO2 30%
[2017-11-09 06:56] LABS: ARTERIAL BLOOD PCO2 77.1 mmHg (35-45)
[2017-11-09] MEDS: IPRATROPIUM/ALBUTEROL 0.5-2.5 MG/3 ML AMPUL NEB SCH ×3 (07:57→19:56)
[2017-11-09] MEDS: ACETYLCYSTEINE 20% SOLN 800 MG/4 ML VIAL.NEB NEB SCH ×2 (08:02→19:56)
[2017-11-09] MEDS: METOPROLOL SUCCINATE 25 MG TAB.SR.24H PO SCH (09:56)
[2017-11-09] MEDS: DOCUSATE SODIUM 100 MG CAPSULE PO SCH (09:56)
[2017-11-09] MEDS: CLOPIDOGREL BISULFATE 75 MG TABLET PO SCH (09:56)
[2017-11-09] MEDS: CALCIUM CARBONATE 250 MG/VITAMIN D3 125 UNIT TABLET PO SCH (09:57)
[2017-11-09] MEDS: LORATADINE 10 MG TABLET PO SCH (09:57)
[2017-11-09] MEDS: OXYCODONE-ACETAMINOPHEN 5-325 MG TABLET PO PRN (09:57)
[2017-11-09] MEDS: ASPIRIN 81 MG TABLET, ENT COATED PO SCH (09:58)
[2017-11-09] MEDS: BUDESONIDE/FORMOTEROL 160-4.5 MCG 60 PUFF/6 GM MDI IH SCH ×2 (09:58→18:09)
[2017-11-09] MEDS: MIDODRINE HCL 5 MG TABLET PO SCH ×3 (09:58→18:07)
[2017-11-09] MEDS: INSULIN GLARGINE,HUM.REC.ANLOG 300 UNIT/3 ML INSULN.PEN SUBCUT SCH (11:26)
[2017-11-09] MEDS: INSULIN LISPRO 100 UNIT/ML 3 ML VIAL SUBCUT PRN ×2 (16:26→22:14)
--- NOTE | 2017-11-09 16:45 | PDOC PROGRESS REPORT ---
Subjective Progress Note for:: 11/09/17 Subjective:: Patient refers that feels better. She was again was found eating breakfast Review of system All organ systems evaluated and negative except as in subjective All significant laboratories and diagnostics have Reason For Visit: ACUTE ON CHRONIC HYPOXIC/HYPERDAPNIC RESPIRATORY Physical Exam Vital Signs: Temp Pulse Resp BP Pulse Ox 98.2 F 73 14 137/47 H 97 11/09/17 04:02 11/09/17 04:02 11/09/17 04:02 11/09/17 04:02 11/09/17 04:02 Intake & Output 11/08/17 11/09/17 11/10/17 06:59 06:59 06:59 Intake Total 560 965 Output Total 1550 3550 Balance -990 -2585 Weight 116.4 kg 112.5 kg General appearance: PRESENT: cooperative, morbidly obese Head exam: PRESENT: atraumatic, normocephalic Eye exam: PRESENT: conjunctiva pink, EOMI, PERRLA Neck exam: PRESENT: full ROM. ABSENT: JVD, lymphadenopathy, tenderness Respiratory exam: PRESENT: crackles. ABSENT: tachypnea, unlabored Cardiovascular exam: PRESENT: RRR. ABSENT: diastolic murmur, systolic murmur GI/Abdominal exam: PRESENT: normal bowel sounds, soft. ABSENT: tenderness Extremities exam: PRESENT: +2 edema. ABSENT: full ROM Musculoskeletal exam: ABSENT: ambulatory Neurological exam: PRESENT: alert, awake, oriented to person, oriented to place , oriented to time, oriented to situation Psychiatric exam: PRESENT: appropriate affect, normal mood Skin exam: PRESENT: erythema Results Laboratory Results: 11/09/17 04:23 11/09/17 04:23 11/08/17 11/08/17 11/08/17 08:40 08:40 12:05 WBC 6.8 RBC 3.19 L Hgb 8.6 L Hct 27.5 L MCV 86 MCH 27.1 MCHC 31.4 L RDW 18.4 H Plt Count 342 Seg Neutrophils % 73.3 Lymphocytes % 17.3 Monocytes % 8.7 Eosinophils % 0.2 Basophils % 0.5 Absolute Neutrophils 5.0 Absolute Lymphocytes 1.2 Absolute Monocytes 0.6 Absolute Eosinophils 0.0 Absolute Basophils 0.0 Carbonic Acid 2.57 H HCO3/H2CO3 Ratio 18:1 ABG pH 7.35 ABG pCO2 85.3 H* ABG pO2 77.2 L ABG HCO3 46.4 H ABG O2 Saturation 94.0 ABG Base Excess 18.2 FiO2 35% Sodium 138.8 Potassium 3.9 Chloride 82 L Carbon Dioxide 53 H* Anion Gap 4 L BUN 26 H Creatinine 0.80 Est GFR ( Amer) > 60 Est GFR (Non-Af Amer) > 60 Glucose 72 L Calcium 8.9 Magnesium 2.1 11/09/17 11/09/17 11/09/17 04:23 04:23 06:30 WBC 8.6 RBC 3.12 L Hgb 8.5 L Hct 26.6 L MCV 85 MCH 27.1 MCHC 31.9 L RDW 18.2 H Plt Count 325 Seg Neutrophils % Not Reportable Lymphocytes % Not Reportable Monocytes % Not Reportable Eosinophils % Not Reportable Basophils % Not Reportable Absolute Neutrophils Not Reportable Absolute Lymphocytes Not Reportable Absolute Monocytes Not Reportable Absolute Eosinophils Not Reportable Absolute Basophils Not Reportable Carbonic Acid 2.32 H HCO3/H2CO3 Ratio 24:1 ABG pH 7.48 H ABG pCO2 77.1 H* ABG pO2 71.6 L ABG HCO3 56.4 H ABG O2 Saturation 94.5 ABG Base Excess 28.9 FiO2 30% Sodium 137.0 Potassium 3.3 L Chloride 79 L Carbon Dioxide 54 H* Anion Gap 4 L BUN 26 H Creatinine 0.70 Est GFR ( Amer) > 60 Est GFR (Non-Af Amer) > 60 Glucose 75 Calcium 8.6 Magnesium 1.7 Impressions: Chest X-Ray 11/06/17 14:11 IMPRESSION: Cannot exclude persistent or recurrent left lower lobe pneumonia. Assessment & Plan - Diagnosis (1) Acute on chronic diastolic (congestive) heart failure Is this a current diagnosis for this admission?: Yes Plan: Continue midodrine and Lasix IV (2) Acute and chronic respiratory failure with hypercapnia Is this a current diagnosis for this admission?: Yes Plan: As per Dr Sanders (3) Morbid obesity with BMI of 45.0-49.9, adult Is this a current diagnosis for this admission?: Yes Plan: Contributing to hypoventilatory syndrome (4) History of poliomyelitis Is this a current diagnosis for this admission?: Yes Plan: Contributing to restrictive component (5) Troponin level elevated Is this a current diagnosis for this admission?: Yes Plan: Likely due to myocardial demand ischemia (6) Anemia Qualifiers: Anemia type: unspecified type Qualified Code(s): D64.9 - Anemia, unspecified Is this a current diagnosis for this admission?: Yes Plan: To trend (7) Obesity hypoventilation syndrome Is this a current diagnosis for this admission?: Yes Plan: Long-standing problem. Patient bed bound (8) Sleep apnea Qualifiers: Sleep apnea type: obstructive Qualified Code(s): G47.33 - Obstructive sleep apnea (adult) (pediatric) Is this a current diagnosis for this admission?: Yes Plan: Contributor to pulmonary hypertension (9) Diabetes mellitus type 2 in obese Is this a current diagnosis for this admission?: Yes Plan: Continue Lantus and continue Humalog sliding scale and bedside glucose AC and HS (10) Hypothyroid Qualifiers: Hypothyroidism type: unspecified Qualified Code(s): E03.9 - Hypothyroidism , unspecified Is this a current diagnosis for this admission?: Yes Plan: Continue outpatient regimen (11) Hyperkalemia Is this a current diagnosis for this admission?: Yes Plan: Resolved (12) Atrial fibrillation Qualifiers: Atrial fibrillation type: paroxysmal Qualified Code(s): I48.0 - Paroxysmal atrial fibrillation Is this a current diagnosis for this admission?: Yes Plan: Continue low dose Toprol XL (13) PNA (pneumonia) Qualifiers: Laterality: left Lung location: lower lobe of lung Is this a current diagnosis for this admission?: Yes Plan: To place on Zosyn IV - Time Time Spent with patient: 15-24 minutes Medications reviewed and adjusted accordingly: Yes Anticipated discharge: Home with Homehealth Within: within 72 hours - Inpatient Certification Based on my medical assessment, after consideration of the patient's comorbidities, presenting symptoms, or acuity I expect that the services needed warrant INPATIENT care.: Yes I certify that my determination is in accordance with my understanding of Medicare's requirements for reasonable and necessary INPATIENT services [42 CFR 412.3e].: Yes Medical Necessity: Need Close Monitoring Due to Risk of Patient Decompensation, Need For Continuous Telemetry Monitoring, Need for Nebulizer Therapy and Monitoring of Response
[2017-11-09] MEDS ORDERED: PIPERACILLIN/TAZOBACTAM 3.375 GM VIAL IV PRN (17:00)
[2017-11-09] MEDS ORDERED: PIPERACILLIN/TAZOBACTAM 3.375 GM VIAL IV ONE (17:23)
[2017-11-09] MEDS: PIPERACILLIN SODIUM/TAZOBACTAM 3.375 GM in NORMAL SALINE 100 ML IV SCH (18:06)
[2017-11-09] MEDS: ATORVASTATIN CALCIUM 20 MG TABLET PO SCH (21:54)
[2017-11-10] MEDS: PIPERACILLIN SODIUM/TAZOBACTAM 3.375 GM in NORMAL SALINE 100 ML IV SCH ×5 (00:12→23:23)
[2017-11-10] MEDS: FUROSEMIDE INJ/PF 40 MG/4 ML SDV IV SCH (06:15)
[2017-11-10] MEDS: HEPARIN SOD (PORCINE) 5,000 UNIT/ML 1 ML SYRINGE SUBCUT SCH ×3 (06:15→22:10)
[2017-11-10] MEDS: IPRATROPIUM/ALBUTEROL 0.5-2.5 MG/3 ML AMPUL NEB SCH ×3 (07:45→20:16)
[2017-11-10] MEDS: ACETYLCYSTEINE 20% SOLN 800 MG/4 ML VIAL.NEB NEB SCH ×3 (07:45→20:16)
[2017-11-10] MEDS: LORATADINE 10 MG TABLET PO SCH (09:07)
[2017-11-10] MEDS: CLOPIDOGREL BISULFATE 75 MG TABLET PO SCH (09:08)
[2017-11-10] MEDS: ASPIRIN 81 MG TABLET, ENT COATED PO SCH (09:08)
[2017-11-10] MEDS: DOCUSATE SODIUM 100 MG CAPSULE PO SCH (09:08)
[2017-11-10] MEDS: INSULIN GLARGINE,HUM.REC.ANLOG 300 UNIT/3 ML INSULN.PEN SUBCUT SCH (09:08)
[2017-11-10] MEDS: METOPROLOL SUCCINATE 25 MG TAB.SR.24H PO SCH (09:08)
[2017-11-10] MEDS: MIDODRINE HCL 5 MG TABLET PO SCH ×3 (09:09→18:52)
[2017-11-10] MEDS: CALCIUM CARBONATE 250 MG/VITAMIN D3 125 UNIT TABLET PO SCH (09:09)
[2017-11-10] MEDS: BUDESONIDE/FORMOTEROL 160-4.5 MCG 60 PUFF/6 GM MDI IH SCH ×2 (09:09→18:52)
[2017-11-10] MEDS ORDERED: (PENDING PHARMACY ID) (Liothyronine Sodium [Cytomel] 10 MCG) PO SCH (12:30)
[2017-11-10] MEDS ORDERED: LIOTHYRONINE SODIUM 5 MCG TABLET PO ONE (12:45)
--- NOTE | 2017-11-10 12:59 | PROGRESS NOTE E ---
Progress Note NAME: ALBERTO DIAL : 1945 AGE: 72Y DATE: 11/10/2017 ROOM: 313 SUBJECTIVE: The patient is currently lying in bed. She states that she feels about the same as she did yesterday. Upon further elaboration the patient stated that she has had difficulty with her swallowing that has gone on for quite some time now. The patient states that she was seen by Speech Therapy during a previous admission but felt that she was dismissed and does not recall having a swallow study done during that visit. The patient denies any nausea or vomiting, denies any sensation of reflux, but mainly describes feeling that she gets choked at times. Additionally the patient does admit to a pain in her bilateral lower extremities in her left greater than right. The patient does not voice any other concerns at this time. REVIEW OF SYSTEMS: The rest of the review of systems is negative. MEDICATIONS: Medications have been reviewed. OBJECTIVE: GENERAL: The patient is a 72-year-old female who is awake, alert, and oriented to person, place, time, and situation. She is verbal, conversational, does not appear to be distressed. VITAL SIGNS: As follows: Temperature is 98.8, pulse 64, respirations 20, blood pressure is 108/47, oxygen saturation is 100% on 4 L nasal cannula. SKIN: Warm and dry. No rash. She is not diaphoretic. HEENT: Pupils equal, round, reactive to light and accommodation. Conjunctiva is pink. There is no evidence of JVP. CARDIOVASCULAR: Heart is regular. Patient does have a 4/6 pansystolic murmur at the sternal border. CHEST: Clear, symmetrical, but diminished, not labored. ABDOMEN: Soft, nontender, nondistended. EXTREMITIES: No clubbing, cyanosis. The patient's right lower extremity is very warm to the touch with evidence of cellulitis. PSYCHIATRIC: Appropriate affect. Pleasant mood. DIAGNOSTICS: Lab values are as follows. Hematology obtained on 11/09/2017: WBCs are 8.6, hemoglobin is 8.5, hematocrit is 26.6, platelet count is 325,000. Chemistry obtained on 11/09/2017: Sodium is 137, potassium 3.3, chloride 79, carbon dioxide 54, BUN 26, creatinine 0.70, glucose 75, calcium is 8.6, magnesium is 1.7. IMPRESSION AND PLAN: 1. PERSISTENT LEFT LOWER LOBE PNEUMONIA, MAY BE RECURRENT VERSUS PERSISTENT. Patient is currently on antibiotic coverage with IV Zosyn. Will continue this for now. Have consulted Speech Therapy for modified speech evaluation and will follow. 2. ACUTE ON CHRONIC DIASTOLIC CONGESTIVE HEART FAILURE. Patient is on midodrine. Patient appears optivolemic as she does not sound overloaded on examination nor appear as such. Will discontinue IV diuretics for now. Will obtain labs and repeat chest x-ray and follow. Again, patient is hypotensive, currently holding diuresis at this time for follow-up imaging. 3. ACUTE ON CHRONIC HYPERCAPNIC RESPIRATORY FAILURE. Will continue BiPAP management as per Dr. Sanders. This is a chronic issue. 4. MORBID OBESITY WITH A BMI OF 45 TO 49.9. This is contributing to patient's hypoventilation syndrome. 5. HISTORY OF POLIOMYELITIS CONTRIBUTING TO HER RESTRICTIVE COMPONENT. 6. TROPONIN LEAK DUE TO DEMAND ISCHEMIA. 7. ANEMIA, MOST LIKELY OF UNDERLYING CHRONIC DISEASE. 8. SLEEP APNEA. Continue CPAP. 9. DIABETES MELLITUS, TYPE 2 IN THE OBESE. Will continue Lantus and Humalog sliding-scale coverage. 10. HYPOTHYROIDISM. Continue the home medication. 11. HYPERKALEMIA. This did resolve. 12. PAROXYSMAL ATRIAL FIBRILLATION. Patient is currently rate controlled on Toprol XL. The patient reportedly declined anticoagulated. 13. CHRONIC OBSTRUCTIVE PULMONARY DISEASE. Will continue the patient's home inhalers. DISPOSITION: THE PATIENT IS A DO NOT RESUSCITATE/DO NOT INTUBATE. Pending the patient's symptomatology and diagnostic findings, will re-evaluate in the a.m. Time spent on this followup, including assessment/plan, physical examination, patient education, review of records, is 35 minutes. DICTATING PHYSICIAN: LAKSHMI PENA NP [id number] PHY#: [id number] ID: [id number] JOB#: [id number] ACCT: [id number] cc: > MAHOGANYD
[2017-11-10 13:19] LABS: BLOOD UREA NITROGEN 21 mg/dL (7-20); CALCIUM 8.3 mg/dL (8.4-10.2); CHLORIDE 78 mmol/L (98-107); GLUCOSE 194 mg/dL (75-110); SODIUM 137.2 mmol/L (137-145)
[2017-11-10 13:29] LABS: ANION GAP 1 (5-19)
[2017-11-10 13:31] LABS: CARBON DIOXIDE 58 mmol/L (22-30); POTASSIUM 2.9 mmol/L (3.6-5.0)
--- NOTE | 2017-11-10 14:56 | RADIOLOGY REPORT (SQ) ---
EXAM DESCRIPTION: CHEST PA/LAT COMPLETED DATE/TIME: 11/10/2017 2:46 pm REASON FOR STUDY: FU PNA vs CHF COMPARISON: 09/13/2016 NUMBER OF VIEWS: Two view TECHNIQUE: Frontal and lateral radiographic images of the chest acquired. LIMITATIONS: Body habitus. FINDINGS: LUNGS AND PLEURA: There is blunting of the costophrenic angle which has been present since 2009. No obvious superimposed pneumonia. MEDIASTINUM AND HILAR STRUCTURES: Stable heart size and mediastinal structures. HEART AND VASCULAR STRUCTURES: Stable appearance. BONES: No acute findings. HARDWARE: None in the chest. OTHER: No other significant finding. IMPRESSION: Stable, chronic changes. TECHNICAL DOCUMENTATION: JOB ID: [id number] [employer]- All Rights Reserved Reading location - IP/workstation name: [email or web address]
[2017-11-10] MEDS: INSULIN LISPRO 100 UNIT/ML 3 ML VIAL SUBCUT PRN ×2 (14:58→19:10)
[2017-11-10] MEDS: ACETAMINOPHEN 325 MG TABLET PO PRN (15:00)
[2017-11-10] MEDS: POTASSIUM CHLORIDE 20 MEQ/15 ML UDCUP PO SCH ×2 (15:01→19:10)
[2017-11-10] MEDS: MAGNESIUM OXIDE 400 MG TABLET PO SCH (18:52)
[2017-11-10] MEDS: MONTELUKAST SODIUM 10 MG TABLET PO SCH (22:05)
[2017-11-10] MEDS: ATORVASTATIN CALCIUM 20 MG TABLET PO SCH (22:09)
[2017-11-10] MEDS: OXYCODONE-ACETAMINOPHEN 5-325 MG TABLET PO PRN (22:09)
[2017-11-11] MEDS: ACETYLCYSTEINE 20% SOLN 800 MG/4 ML VIAL.NEB NEB SCH ×4 (02:16→19:42)
[2017-11-11] MEDS: ALBUTEROL SULFATE 0.083% NEB 2.5 MG/3 ML AMPUL NEB PRN (02:16)
[2017-11-11] MEDS: PIPERACILLIN SODIUM/TAZOBACTAM 3.375 GM in NORMAL SALINE 100 ML IV SCH ×3 (05:28→17:49)
[2017-11-11] MEDS: HEPARIN SOD (PORCINE) 5,000 UNIT/ML 1 ML SYRINGE SUBCUT SCH ×3 (05:30→22:08)
[2017-11-11] MEDS: LANSOPRAZOLE 30 MG TAB.RAP.DR PO SCH (05:30)
[2017-11-11 06:35] LABS: HEMOGLOBIN 8.4 g/dL (12.0-15.5); MEAN CORPUSCULAR HEMOGLOBIN 26.9 pg (27.0-33.4); MEAN CORPUSCULAR HGB CONC 31.1 g/dL (32.0-36.0); MEAN CORPUSCULAR VOLUME 86 fl (80-97); PLATELET COUNT 258 10^3/uL (150-450); RED BLOOD COUNT 3.13 10^6/uL (3.72-5.28); RED CELL DISTRIBUTION WIDTH 18.5 % (11.5-14.0); WHITE BLOOD COUNT 5.3 10^3/uL (4.0-10.5)
[2017-11-11 07:21] LABS: BLOOD UREA NITROGEN 23 mg/dL (7-20); CALCIUM 8.3 mg/dL (8.4-10.2); CHLORIDE 83 mmol/L (98-107); GLUCOSE 208 mg/dL (75-110); POTASSIUM 3.6 mmol/L (3.6-5.0); SODIUM 136.9 mmol/L (137-145)
[2017-11-11 07:36] LABS: ANION GAP 4 (5-19)
[2017-11-11 07:39] LABS: CARBON DIOXIDE 50 mmol/L (22-30)
[2017-11-11] MEDS: IPRATROPIUM/ALBUTEROL 0.5-2.5 MG/3 ML AMPUL NEB SCH ×3 (07:52→19:42)
[2017-11-11] MEDS: INSULIN LISPRO 100 UNIT/ML 3 ML VIAL SUBCUT PRN ×3 (08:58→17:50)
[2017-11-11] MEDS: INSULIN GLARGINE,HUM.REC.ANLOG 300 UNIT/3 ML INSULN.PEN SUBCUT SCH (08:58)
[2017-11-11] MEDS: ASPIRIN 81 MG TABLET, ENT COATED PO SCH (09:02)
[2017-11-11] MEDS: OXYCODONE-ACETAMINOPHEN 5-325 MG TABLET PO PRN ×2 (09:02→14:42)
[2017-11-11] MEDS: BUDESONIDE/FORMOTEROL 160-4.5 MCG 60 PUFF/6 GM MDI IH SCH ×2 (09:02→17:48)
[2017-11-11] MEDS: MAGNESIUM OXIDE 400 MG TABLET PO SCH ×3 (09:03→17:50)
[2017-11-11] MEDS: CLOPIDOGREL BISULFATE 75 MG TABLET PO SCH (09:03)
[2017-11-11] MEDS: LORATADINE 10 MG TABLET PO SCH (09:03)
[2017-11-11] MEDS: MIDODRINE HCL 5 MG TABLET PO SCH ×3 (09:03→17:50)
[2017-11-11] MEDS: METOPROLOL SUCCINATE 25 MG TAB.SR.24H PO SCH (09:04)
[2017-11-11] MEDS: CALCIUM CARBONATE 250 MG/VITAMIN D3 125 UNIT TABLET PO SCH (09:04)
[2017-11-11] MEDS: DOCUSATE SODIUM 100 MG CAPSULE PO SCH (09:05)
[2017-11-11] MEDS: LIOTHYRONINE SODIUM 5 MCG TABLET PO SCH (11:01)
--- NOTE | 2017-11-11 13:55 | PDOC PROGRESS REPORT ---
Subjective Progress Note for:: 11/11/17 Subjective:: 72 yo Female with left sided effusion on CXR last taken on 11/10, normally on Lasix for Diastolic HF, treated for possible PNA with IV Zosyn, with improving leukocytosis, no growth on blood cultures. Has hypokalemia. Replacing this AM. She has been on 3L NC with good O2 saturation. No net negative diuresis over the last 2 days. Patient is morbidly obese on BIPAP support for rest at present. She likely has a component of [place]wickian respiratory compromise. Reason For Visit: ACUTE ON CHRONIC HYPOXIC/HYPERDAPNIC RESPIRATORY Physical Exam Vital Signs: Temp Pulse Resp BP Pulse Ox 99.1 F 61 20 90/52 L 90 L 11/11/17 12:02 11/11/17 12:02 11/11/17 12:02 11/11/17 12:02 11/11/17 12:02 Intake & Output 11/10/17 11/11/17 11/12/17 06:59 06:59 06:59 Intake Total 1050 2306 236 Output Total 3725 2150 125 Balance -2675 156 111 Weight 113 kg 118.8 kg General appearance: PRESENT: morbidly obese. ABSENT: disheveled, hard of hearing Head exam: PRESENT: atraumatic, normocephalic Eye exam: PRESENT: EOMI, PERRLA. ABSENT: nystagmus Ear exam: PRESENT: normal external ear exam. ABSENT: bleeding Mouth exam: PRESENT: moist. ABSENT: dry mucosa, neck supple - enlarged neck due to body habitus Teeth exam: ABSENT: dental caries, dental tenderness Throat exam: ABSENT: post pharyngeal erythema, tonsillar exudate Neck exam: ABSENT: carotid bruit, full ROM Respiratory exam: PRESENT: rales - decreased breath sounds in left base. ABSENT : accessory muscle use, clear to auscultation joel Cardiovascular exam: PRESENT: RRR, +S1, +S2. ABSENT: bradycardia Pulses: PRESENT: normal radial pulses GI/Abdominal exam: PRESENT: soft, tenderness. ABSENT: ascites, distended, guarding, rebound, rigid Extremities exam: ABSENT: calf tenderness, joint swelling Musculoskeletal exam: ABSENT: ambulatory Neurological exam: PRESENT: alert, awake, oriented to person, oriented to place , oriented to time. ABSENT: altered Psychiatric exam: ABSENT: agitated, anxious, flat affect Focused psych exam: ABSENT: catatonic, delusional, internal stimuli Skin exam: ABSENT: abrasion, cyanosis, erythema Results Laboratory Results: 11/11/17 05:30 11/11/17 05:30 11/10/17 11/11/17 11/11/17 12:46 05:30 05:30 WBC 5.3 RBC 3.13 L Hgb 8.4 L Hct 27.0 L MCV 86 MCH 26.9 L MCHC 31.1 L RDW 18.5 H Plt Count 258 Sodium 137.2 136.9 L Potassium 2.9 L* 3.6 Chloride 78 L 83 L Carbon Dioxide 58 H* 50 H* Anion Gap 1 L 4 L BUN 21 H 23 H Creatinine 0.76 0.66 Est GFR ( Amer) > 60 > 60 Est GFR (Non-Af Amer) > 60 > 60 Glucose 194 H 208 H Calcium 8.3 L 8.3 L Magnesium 1.5 L 1.8 Impressions: Chest X-Ray 11/10/17 00:00 IMPRESSION: Stable, chronic changes. Assessment & Plan - Plan Summary Plan Summary: (1) Acute on chronic diastolic (congestive) heart failure replace potassium continue IV Lasix at 20mg BID (2) Acute and chronic respiratory failure with hypercapnia per pulmonary resting on BIPAP at present. continue pulmonary medicines. (3) PNA (pneumonia) continue on IV Zosyn Left lower lobe opacity present on past CXRs CT Chest today to check for a loculation. (4) Morbid obesity with BMI of 45.0-49.9, adult hypoventilatory syndrome component encouraged limiting calories and weight loss. (5) History of poliomyelitis Contributing to restrictive component (6) Troponin level elevated likely demand related ischemia, monitor for Chest pain complaints (7) Anemia mildly decreasing. no clinical signs of blood loss. denies blood in BM, monitor for now. (8) Obesity hypoventilation syndrome bed bound status (9) Sleep apnea resting on BIPAP at night and during sleeping in the day (10) Diabetes mellitus type 2 in obese Continue Lantus and continue Humalog sliding scale and bedside glucose AC and HS (11) Hypothyroid Continue home medications (12) Hyperkalemia resolved (13) Hypokalemia replacing, monitor (14) Atrial fibrillation Continue low dose Toprol XL
[2017-11-11] MEDS ORDERED: POTASSIUM CHLORIDE 10 MEQ TABLET.SA PO ONE (14:00)
--- NOTE | 2017-11-11 15:25 | RADIOLOGY REPORT (SQ) ---
EXAM DESCRIPTION: CT CHEST WITHOUT COMPLETED DATE/TIME: 11/11/2017 3:15 pm REASON FOR STUDY: persistent left sided opacity, eval for loculation COMPARISON: 11/26/2012 TECHNIQUE: CT scan performed of the chest without intravenous contrast. Images reviewed with lung, soft tissue and bone windows. Reconstructed coronal and sagittal MPR images reviewed. All images st ored on PACS. All CT scanners at this facility use dose modulation, iterative reconstruction, and/or weight based d osing when appropriate to reduce radiation dose to as low as reasonably achievable (ALARA). [facility]: Dose Right [facility]: CareDose [facility]: Dose Right [facility]: Teradose 4D [facility]: Modbook RADIATION DOSE: CT Rad equipment meets quality standard of care and radiation dose reduction techniq ues were employed. CTDIvol: 19.4 mGy. DLP: 698 mGy-cm. mGy. LIMITATIONS: Patient motion. Scoliosis. FINDINGS: LUNGS AND PLEURA: There is chronic volume loss in the left lung. Interlobular septal thic kening and bronchiectasis in the left lower lobe and costophrenic angle. No evidence of loculated fl uid collection. Right lung is clear. HILAR AND MEDIASTINAL STRUCTURES: No identified masses or abnormal nodes. No obvious aneurysm. HEART AND VASCULAR STRUCTURES: No aneurysm. No pericardial effusion. UPPER ABDOMEN: No significant findings. Limited exam. THYROID AND OTHER SOFT TISSUES: No masses. No adenopathy. BONES: No acute flow these series HARDWARE: None in the chest. OTHER: No other significant findings. IMPRESSION: Chronic interstitial changes and bronchiectasis accounting for the plain film appearance in the left lung. No evidence of empyema. TECHNICAL DOCUMENTATION: JOB ID: [id number] Quality ID # [id number]: Final reports with documentation of one or more dose reduction techniques (e.g., Au tomated exposure control, adjustment of the mA and/or kV according to patient size, use of iterative reconstruction technique) 2010 [employer]- All Rights Reserved Reading location - IP/workstation name: [email or web address]
[2017-11-11] MEDS: FUROSEMIDE INJ/PF 20 MG/2 ML SDV IV SCH (17:48)
[2017-11-11] MEDS: ATORVASTATIN CALCIUM 20 MG TABLET PO SCH (22:08)
[2017-11-11] MEDS: MONTELUKAST SODIUM 10 MG TABLET PO SCH (22:08)
[2017-11-12] MEDS: PIPERACILLIN SODIUM/TAZOBACTAM 3.375 GM in NORMAL SALINE 100 ML IV SCH ×5 (00:19→23:06)
[2017-11-12] MEDS: ALBUTEROL SULFATE 0.083% NEB 2.5 MG/3 ML AMPUL NEB PRN (02:48)
[2017-11-12] MEDS: ACETYLCYSTEINE 20% SOLN 800 MG/4 ML VIAL.NEB NEB SCH ×4 (02:48→19:50)
[2017-11-12 05:05] LABS: HEMATOCRIT 27.2 % (36.0-47.0); HEMOGLOBIN 8.7 g/dL (12.0-15.5); MEAN CORPUSCULAR HEMOGLOBIN 27.3 pg (27.0-33.4); MEAN CORPUSCULAR HGB CONC 31.9 g/dL (32.0-36.0); MEAN CORPUSCULAR VOLUME 86 fl (80-97); PLATELET COUNT 261 10^3/uL (150-450); RED BLOOD COUNT 3.17 10^6/uL (3.72-5.28); RED CELL DISTRIBUTION WIDTH 18.7 % (11.5-14.0); WHITE BLOOD COUNT 7.6 10^3/uL (4.0-10.5)
[2017-11-12 05:26] LABS: BLOOD UREA NITROGEN 22 mg/dL (7-20); CALCIUM 8.5 mg/dL (8.4-10.2); CHLORIDE 87 mmol/L (98-107); GLUCOSE 159 mg/dL (75-110); PHOSPHORUS 2.7 mg/dL (2.5-4.5); POTASSIUM 3.9 mmol/L (3.6-5.0); SODIUM 138.1 mmol/L (137-145)
[2017-11-12 05:35] LABS: ANION GAP 1 (5-19)
[2017-11-12] MEDS: HEPARIN SOD (PORCINE) 5,000 UNIT/ML 1 ML SYRINGE SUBCUT SCH ×3 (05:36→22:29)
[2017-11-12 05:37] LABS: CARBON DIOXIDE 50 mmol/L (22-30)
[2017-11-12] MEDS: LANSOPRAZOLE 30 MG TAB.RAP.DR PO SCH (05:38)
[2017-11-12] MEDS: IPRATROPIUM/ALBUTEROL 0.5-2.5 MG/3 ML AMPUL NEB SCH ×3 (09:35→19:50)
[2017-11-12] MEDS: DOCUSATE SODIUM 100 MG CAPSULE PO SCH (09:56)
[2017-11-12] MEDS: CALCIUM CARBONATE 250 MG/VITAMIN D3 125 UNIT TABLET PO SCH (09:57)
[2017-11-12] MEDS: CLOPIDOGREL BISULFATE 75 MG TABLET PO SCH (09:57)
[2017-11-12] MEDS: MAGNESIUM OXIDE 400 MG TABLET PO SCH ×3 (09:57→17:18)
[2017-11-12] MEDS: METOPROLOL SUCCINATE 25 MG TAB.SR.24H PO SCH (09:58)
[2017-11-12] MEDS: MIDODRINE HCL 5 MG TABLET PO SCH ×3 (09:58→17:18)
[2017-11-12] MEDS: LORATADINE 10 MG TABLET PO SCH (09:59)
[2017-11-12] MEDS: ASPIRIN 81 MG TABLET, ENT COATED PO SCH (10:00)
[2017-11-12] MEDS: FUROSEMIDE INJ/PF 20 MG/2 ML SDV IV SCH ×2 (10:00→17:18)
[2017-11-12] MEDS: BUDESONIDE/FORMOTEROL 160-4.5 MCG 60 PUFF/6 GM MDI IH SCH ×2 (10:00→17:18)
[2017-11-12] MEDS: INSULIN GLARGINE,HUM.REC.ANLOG 300 UNIT/3 ML INSULN.PEN SUBCUT SCH (10:01)
[2017-11-12] MEDS: INSULIN LISPRO 100 UNIT/ML 3 ML VIAL SUBCUT PRN ×3 (13:11→22:37)
[2017-11-12] MEDS: LIOTHYRONINE SODIUM 5 MCG TABLET PO SCH (13:18)
[2017-11-12] MEDS ORDERED: POLYETHYLENE GLYCOL 3350 POWDER 17 GM/1 PACKET PO ONE (16:30)
--- NOTE | 2017-11-12 21:09 | PDOC PROGRESS REPORT ---
Subjective Progress Note for:: 11/12/17 Subjective:: 72 yo Female with left sided effusion on CXR last taken on 11/10, normally on Lasix for Diastolic HF, treated for possible PNA with IV Zosyn, with improving leukocytosis, no growth on blood cultures. Patient on home level of O2, 3L. She is dependent on rebecca lift for mobilty at home. Consulting PT. Will convert bed to chair position. Complains of constipation, giving bowel treatment. Reason For Visit: ACUTE ON CHRONIC HYPOXIC/HYPERDAPNIC RESPIRATORY Physical Exam Vital Signs: Temp Pulse Resp BP Pulse Ox 99.1 F 66 17 135/42 H 100 11/12/17 19:32 11/12/17 19:46 11/12/17 19:46 11/12/17 19:32 11/12/17 19:46 Intake & Output 11/11/17 11/12/17 11/13/17 06:59 06:59 06:59 Intake Total 2306 1679 939 Output Total 2150 1625 1250 Balance 156 54 -311 Weight 118.8 kg 121.2 kg General appearance: PRESENT: no acute distress, morbidly obese Head exam: PRESENT: atraumatic, normocephalic Eye exam: PRESENT: EOMI, PERRLA Mouth exam: PRESENT: moist, neck supple Neck exam: PRESENT: full ROM. ABSENT: JVD, tenderness Respiratory exam: ABSENT: accessory muscle use, crackles, rales, rhonchi, wheezes Cardiovascular exam: PRESENT: RRR, +S1, +S2 Pulses: PRESENT: normal radial pulses, normal dorsalis pedis pul Vascular exam: PRESENT: normal capillary refill. ABSENT: pallor GI/Abdominal exam: PRESENT: soft. ABSENT: ascites, distended, firm, guarding, organolmegaly, rigid Extremities exam: ABSENT: calf tenderness, joint swelling Musculoskeletal exam: PRESENT: full ROM. ABSENT: ambulatory Neurological exam: PRESENT: alert, oriented to person, oriented to place, oriented to time, CN II-XII grossly intact Psychiatric exam: ABSENT: agitated, anxious, flat affect Focused psych exam: ABSENT: catatonic, paranoid Skin exam: ABSENT: abrasion, cyanosis, erythema Results Laboratory Results: 11/12/17 04:35 11/12/17 04:35 11/12/17 11/12/17 04:35 04:35 WBC 7.6 RBC 3.17 L Hgb 8.7 L Hct 27.2 L MCV 86 MCH 27.3 MCHC 31.9 L RDW 18.7 H Plt Count 261 Sodium 138.1 Potassium 3.9 Chloride 87 L Carbon Dioxide 50 H* Anion Gap 1 L BUN 22 H Creatinine 0.75 Est GFR ( Amer) > 60 Est GFR (Non-Af Amer) > 60 Glucose 159 H Calcium 8.5 Phosphorus 2.7 Albumin 3.0 L Impressions: Chest X-Ray 11/10/17 00:00 IMPRESSION: Stable, chronic changes. Chest CT 11/11/17 00:00 IMPRESSION: Chronic interstitial changes and bronchiectasis accounting for the plain film appearance in the left lung. No evidence of empyema. Assessment & Plan - Plan Summary Plan Summary: (1) Acute on chronic diastolic (congestive) heart failure replace potassium continue IV Lasix at 20mg BID, on home level of O2, good urine output. (2) Acute and chronic respiratory failure with hypercapnia per pulmonary resting on BIPAP when sleeping continue pulmonary medicines. (3) PNA (pneumonia) continue on IV Zosyn, Day 4 Left lower lobe opacity present on past CXRs CT Chest showed changes consistent with bronchiectosis and no empyema (4) Morbid obesity with BMI of 45.0-49.9, adult hypoventilatory syndrome component encouraged limiting calories and weight loss. (5) History of poliomyelitis Contributing to restrictive component (6) Troponin level elevated likely demand related ischemia, monitor for Chest pain complaints (7) Anemia mildly decreasing. no clinical signs of blood loss. denies blood in BM, monitor for now. (8) Obesity hypoventilation syndrome bed bound status (9) Sleep apnea resting on BIPAP at night and during sleeping in the day (10) Diabetes mellitus type 2 in obese Continue Lantus and continue Humalog sliding scale and bedside glucose AC and HS (11) Hypothyroid Continue home medications (12) Hyperkalemia resolved (13) Hypokalemia replacing, monitor (14) Atrial fibrillation Continue low dose Toprol XL
[2017-11-12] MEDS ORDERED: LACTULOSE SYRUP 20 GM/30 ML UDCUP PO ONE (22:15)
[2017-11-12] MEDS: ATORVASTATIN CALCIUM 20 MG TABLET PO SCH (22:29)
[2017-11-12] MEDS: MONTELUKAST SODIUM 10 MG TABLET PO SCH (22:30)
[2017-11-12] MEDS: ACETAMINOPHEN 325 MG TABLET PO PRN (22:45)
[2017-11-13] MEDS: ACETYLCYSTEINE 20% SOLN 800 MG/4 ML VIAL.NEB NEB SCH ×4 (02:44→19:56)
[2017-11-13] MEDS: ALBUTEROL SULFATE 0.083% NEB 2.5 MG/3 ML AMPUL NEB PRN (02:44)
[2017-11-13] MEDS: PIPERACILLIN SODIUM/TAZOBACTAM 3.375 GM in NORMAL SALINE 100 ML IV SCH ×4 (05:49→23:09)
[2017-11-13] MEDS: LANSOPRAZOLE 30 MG TAB.RAP.DR PO SCH (05:49)
[2017-11-13] MEDS: HEPARIN SOD (PORCINE) 5,000 UNIT/ML 1 ML SYRINGE SUBCUT SCH ×3 (05:49→22:06)
[2017-11-13] MEDS: IPRATROPIUM/ALBUTEROL 0.5-2.5 MG/3 ML AMPUL NEB SCH ×3 (08:39→19:56)
[2017-11-13] MEDS: INSULIN LISPRO 100 UNIT/ML 3 ML VIAL SUBCUT PRN ×4 (08:45→23:09)
[2017-11-13] MEDS: ASPIRIN 81 MG TABLET, ENT COATED PO SCH (10:33)
[2017-11-13] MEDS: METOPROLOL SUCCINATE 25 MG TAB.SR.24H PO SCH (10:34)
[2017-11-13] MEDS: INSULIN GLARGINE,HUM.REC.ANLOG 300 UNIT/3 ML INSULN.PEN SUBCUT SCH (10:34)
[2017-11-13] MEDS: BUDESONIDE/FORMOTEROL 160-4.5 MCG 60 PUFF/6 GM MDI IH SCH ×2 (10:34→18:20)
[2017-11-13] MEDS: FUROSEMIDE INJ/PF 20 MG/2 ML SDV IV SCH ×2 (10:34→18:20)
[2017-11-13] MEDS: MIDODRINE HCL 5 MG TABLET PO SCH ×3 (10:34→18:20)
[2017-11-13] MEDS: CLOPIDOGREL BISULFATE 75 MG TABLET PO SCH (10:35)
[2017-11-13] MEDS: LORATADINE 10 MG TABLET PO SCH (10:35)
[2017-11-13] MEDS: CALCIUM CARBONATE 250 MG/VITAMIN D3 125 UNIT TABLET PO SCH (10:35)
[2017-11-13] MEDS: MAGNESIUM OXIDE 400 MG TABLET PO SCH ×3 (10:35→18:20)
[2017-11-13] MEDS: DOCUSATE SODIUM 100 MG CAPSULE PO SCH (10:37)
[2017-11-13] MEDS: POLYETHYLENE GLYCOL 3350 POWDER 17 GM/1 PACKET PO SCH (10:37)
[2017-11-13] MEDS: LIOTHYRONINE SODIUM 5 MCG TABLET PO SCH (12:03)
--- NOTE | 2017-11-13 16:24 | RADIOLOGY REPORT (SQ) ---
EXAM DESCRIPTION: VENOUS BILATERAL LOWER COMPLETED DATE/TIME: 11/13/2017 4:10 pm REASON FOR STUDY: eval for DVTs COMPARISON: 06/22/2012 TECHNIQUE: Dynamic and static schmidt scale and color images acquired of both lower extremity venous sy stems. Selected spectral images acquired with additional compression and augmentation maneuvers. Imag es stored on PACS. LIMITATIONS: None. FINDINGS: RIGHT LEG COMMON FEMORAL AND FEMORAL: Normal phasicity, compression and augmentation. No visualized echogenic m aterial on schmidt scale. No defects on color images. POPLITEAL: Normal compression and augmentation. No visualized echogenic material on schmidt scale. No de fects on color images. CALF VESSELS: Normal compression and augmentation. No visualized echogenic material on schmidt scale. No defects on color image. GSV AND SSV: Normal compression. No visualized echogenic material on schmidt scale. No defects on color images. ANY DEEP VENOUS INSUFFICIENCY: Not evaluated. ANY EVIDENCE OF POPLITEAL CYST: No. OTHER: No other significant finding. LEFT LEG COMMON FEMORAL AND FEMORAL: Normal phasicity, compression and augmentation. No visualized echogenic m aterial on schmidt scale. No defects on color images. POPLITEAL: Normal compression and augmentation. No visualized echogenic material on schmidt scale. No de fects on color images. CALF VESSELS: Normal compression and augmentation. No visualized echogenic material on schmidt scale. No defects on color images. GSV AND SSV: Normal compression. No visualized echogenic material on schmidt scale. No defects on color images. ANY DEEP VENOUS INSUFFICIENCY: Not evaluated. ANY EVIDENCE POPLITEAL CYST: No. OTHER: No other significant finding. IMPRESSION: NO EVIDENCE DVT OR SVT IN EITHER LEG. TECHNICAL DOCUMENTATION: JOB ID: [id number] [employer]- All Rights Reserved Reading location - IP/workstation name: [email or web address]
[2017-11-13] MEDS: MONTELUKAST SODIUM 10 MG TABLET PO SCH (22:06)
[2017-11-13] MEDS: ATORVASTATIN CALCIUM 20 MG TABLET PO SCH (22:07)
[2017-11-14] MEDS: ACETYLCYSTEINE 20% SOLN 800 MG/4 ML VIAL.NEB NEB SCH ×4 (02:13→20:47)
[2017-11-14] MEDS: ALBUTEROL SULFATE 0.083% NEB 2.5 MG/3 ML AMPUL NEB PRN (02:13)
[2017-11-14 05:39] LABS: HEMATOCRIT 26.9 % (36.0-47.0); HEMOGLOBIN 8.5 g/dL (12.0-15.5); MEAN CORPUSCULAR HEMOGLOBIN 26.8 pg (27.0-33.4); MEAN CORPUSCULAR HGB CONC 31.4 g/dL (32.0-36.0); MEAN CORPUSCULAR VOLUME 85 fl (80-97); PLATELET COUNT 230 10^3/uL (150-450); RED BLOOD COUNT 3.16 10^6/uL (3.72-5.28); RED CELL DISTRIBUTION WIDTH 18.5 % (11.5-14.0); WHITE BLOOD COUNT 5.6 10^3/uL (4.0-10.5)
[2017-11-14] MEDS: HEPARIN SOD (PORCINE) 5,000 UNIT/ML 1 ML SYRINGE SUBCUT SCH ×3 (05:45→21:48)
[2017-11-14] MEDS: LANSOPRAZOLE 30 MG TAB.RAP.DR PO SCH (05:45)
[2017-11-14] MEDS: PIPERACILLIN SODIUM/TAZOBACTAM 3.375 GM in NORMAL SALINE 100 ML IV SCH ×4 (05:46→23:58)
[2017-11-14 06:07] LABS: ALBUMIN 2.9 g/dL (3.5-5.0); BLOOD UREA NITROGEN 22 mg/dL (7-20); CALCIUM 9.3 mg/dL (8.4-10.2); CHLORIDE 90 mmol/L (98-107); GLUCOSE 126 mg/dL (75-110); PHOSPHORUS 4.2 mg/dL (2.5-4.5); POTASSIUM 4.1 mmol/L (3.6-5.0); SODIUM 139.4 mmol/L (137-145)
[2017-11-14 06:18] LABS: ANION GAP 4 (5-19)
[2017-11-14 06:19] LABS: CARBON DIOXIDE 45 mmol/L (22-30)
--- NOTE | 2017-11-14 06:59 | PDOC PROGRESS REPORT ---
Subjective Progress Note for:: 11/13/17 Subjective:: 72 yo Female with left sided effusion on CXR last taken on 11/10, normally on Lasix for Diastolic HF, treated for possible PNA with IV Zosyn, with improving leukocytosis, no growth on blood cultures. Patient on home level of O2, 3L. She is dependent on rebecca lift for mobilty at home. Complains of bilateral leg pain. US of lower extremities Negative for DVT. Continue diuresis, and IV antibiotics for PNA. Reason For Visit: ACUTE ON CHRONIC HYPOXIC/HYPERDAPNIC RESPIRATORY Physical Exam Vital Signs: Temp Pulse Resp BP Pulse Ox 98.7 F 72 16 104/79 97 11/13/17 16:01 11/13/17 16:01 11/13/17 16:01 11/13/17 16:01 11/13/17 16:01 Intake & Output 11/12/17 11/13/17 11/14/17 06:59 06:59 06:59 Intake Total 1679 1894 664 Output Total 1625 2225 1550 Balance 54 -331 -886 Weight 121.2 kg 122.6 kg General appearance: PRESENT: cooperative, morbidly obese Head exam: PRESENT: atraumatic, normocephalic Eye exam: PRESENT: EOMI, PERRLA Ear exam: PRESENT: normal external ear exam. ABSENT: bleeding Mouth exam: PRESENT: moist, neck supple. ABSENT: dry mucosa Neck exam: ABSENT: JVD, tenderness, thyromegaly Respiratory exam: ABSENT: accessory muscle use, clear to auscultation joel, rales , rhonchi, wheezes Cardiovascular exam: PRESENT: RRR, +S1, +S2 Pulses: PRESENT: normal radial pulses, normal dorsalis pedis pul Vascular exam: PRESENT: normal capillary refill. ABSENT: pallor GI/Abdominal exam: PRESENT: normal bowel sounds, soft. ABSENT: ascites, guarding, rigid Extremities exam: PRESENT: calf tenderness, tenderness - in bilateral lower extremities. ABSENT: joint swelling Musculoskeletal exam: ABSENT: ambulatory, full ROM, normal inspection Neurological exam: PRESENT: altered, oriented to person, oriented to place, oriented to time, CN II-XII grossly intact Psychiatric exam: ABSENT: agitated, anxious Focused psych exam: ABSENT: catatonic, paranoid Skin exam: ABSENT: abrasion, cyanosis Results Laboratory Results: 11/12/17 04:35 11/12/17 04:35 Impressions: Chest X-Ray 11/10/17 00:00 IMPRESSION: Stable, chronic changes. Chest CT 11/11/17 00:00 IMPRESSION: Chronic interstitial changes and bronchiectasis accounting for the plain film appearance in the left lung. No evidence of empyema. Venous Doppler Study 11/13/17 00:00 IMPRESSION: NO EVIDENCE DVT OR SVT IN EITHER LEG. Assessment & Plan - Plan Summary Plan Summary: (1) Acute on chronic diastolic (congestive) heart failure replace potassium continue IV Lasix at 20mg BID, on home level of O2, good urine output. (2) Acute and chronic respiratory failure with hypercapnia per pulmonary resting on BIPAP when sleeping continue pulmonary medicines. (3) PNA (pneumonia) continue on IV Zosyn, Day 5 Left lower lobe opacity present on past CXRs CT Chest showed changes consistent with bronchiectosis and no empyema (4) Morbid obesity with BMI of 45.0-49.9, adult hypoventilatory syndrome component encouraged limiting calories and weight loss. (5) History of poliomyelitis Contributing to restrictive component (6) Troponin level elevated likely demand related ischemia, monitor for Chest pain complaints (7) Anemia monitor for now. (8) Obesity hypoventilation syndrome bed bound status uses rebecca lift at home for mobility (9) Sleep apnea resting on BIPAP at night and during sleeping in the day (10) Diabetes mellitus type 2 in obese Continue Lantus and continue Humalog sliding scale and bedside glucose AC and HS (11) Hypothyroid Continue home medications (12) Hyperkalemia resolved (13) Hypokalemia replacing, monitor (14) Atrial fibrillation Continue low dose Toprol XL (15) Bilateral leg pain US of lower extremities: negative for DVTs
[2017-11-14] MEDS: IPRATROPIUM/ALBUTEROL 0.5-2.5 MG/3 ML AMPUL NEB SCH ×3 (07:50→20:47)
[2017-11-14] MEDS: INSULIN LISPRO 100 UNIT/ML 3 ML VIAL SUBCUT PRN ×3 (08:09→21:49)
[2017-11-14] MEDS: POLYETHYLENE GLYCOL 3350 POWDER 17 GM/1 PACKET PO SCH (09:54)
[2017-11-14] MEDS: FUROSEMIDE INJ/PF 20 MG/2 ML SDV IV SCH ×2 (09:54→17:54)
[2017-11-14] MEDS: INSULIN GLARGINE,HUM.REC.ANLOG 300 UNIT/3 ML INSULN.PEN SUBCUT SCH (09:55)
[2017-11-14] MEDS: CLOPIDOGREL BISULFATE 75 MG TABLET PO SCH (09:55)
[2017-11-14] MEDS: METOPROLOL SUCCINATE 25 MG TAB.SR.24H PO SCH (09:55)
[2017-11-14] MEDS: ASPIRIN 81 MG TABLET, ENT COATED PO SCH (09:55)
[2017-11-14] MEDS: CALCIUM CARBONATE 250 MG/VITAMIN D3 125 UNIT TABLET PO SCH (09:55)
[2017-11-14] MEDS: MIDODRINE HCL 5 MG TABLET PO SCH ×3 (09:55→17:54)
[2017-11-14] MEDS: MAGNESIUM OXIDE 400 MG TABLET PO SCH ×3 (09:55→17:54)
[2017-11-14] MEDS: DOCUSATE SODIUM 100 MG CAPSULE PO SCH (09:55)
[2017-11-14] MEDS: LORATADINE 10 MG TABLET PO SCH (09:56)
[2017-11-14] MEDS: BUDESONIDE/FORMOTEROL 160-4.5 MCG 60 PUFF/6 GM MDI IH SCH ×2 (09:56→18:00)
[2017-11-14] MEDS: LIOTHYRONINE SODIUM 5 MCG TABLET PO SCH (11:59)
[2017-11-14] MEDS: ACETAMINOPHEN 325 MG TABLET PO PRN (12:49)
--- NOTE | 2017-11-14 14:37 | PDOC PROGRESS REPORT ---
Subjective Progress Note for:: 11/14/17 Reason For Visit: ACUTE ON CHRONIC HYPOXIC/HYPERDAPNIC RESPIRATORY Physical Exam Vital Signs: Temp Pulse Resp BP Pulse Ox 99.8 F 72 22 H 113/45 L 100 11/14/17 12:26 11/14/17 12:26 11/14/17 12:26 11/14/17 12:26 11/14/17 12:26 Intake & Output 11/13/17 11/14/17 11/15/17 06:59 06:59 06:59 Intake Total 1894 1456 600 Output Total 9147 9070 975 Balance -012 -1695 -076 Weight 122.6 kg 119 kg Results Laboratory Results: 11/14/17 04:41 11/14/17 04:41 11/14/17 11/14/17 04:41 04:41 WBC 5.6 RBC 3.16 L Hgb 8.5 L Hct 26.9 L MCV 85 MCH 26.8 L MCHC 31.4 L RDW 18.5 H Plt Count 230 Sodium 139.4 Potassium 4.1 Chloride 90 L Carbon Dioxide 45 H* Anion Gap 4 L BUN 22 H Creatinine 0.75 Est GFR ( Amer) > 60 Est GFR (Non-Af Amer) > 60 Glucose 126 H Calcium 9.3 Phosphorus 4.2 Albumin 2.9 L Impressions: Chest X-Ray 11/10/17 00:00 IMPRESSION: Stable, chronic changes. Chest CT 11/11/17 00:00 IMPRESSION: Chronic interstitial changes and bronchiectasis accounting for the plain film appearance in the left lung. No evidence of empyema. Venous Doppler Study 11/13/17 00:00 IMPRESSION: NO EVIDENCE DVT OR SVT IN EITHER LEG.
--- NOTE | 2017-11-14 20:40 | PDOC PROGRESS REPORT ---
Subjective Progress Note for:: 11/14/17 Subjective:: Patient had a temp elevation this morning. This is day 6 on her IV Zosyn for her pneumonia. Monitor. No growth on cultures. Patient clinically otherwise has been improving gradually. Patient's baseline is very deconditioned and debilitated. She is heavily dependent on her family members for her ADLs. A Eliot lift is used inside the home to remove this patient. Ultrasound of her lower extremities yesterday did not yield evidence of a DVT. Patient continues to diurese well. Reason For Visit: ACUTE ON CHRONIC HYPOXIC/HYPERDAPNIC RESPIRATORY Physical Exam Vital Signs: Temp Pulse Resp BP Pulse Ox 99.5 F 76 18 106/41 L 96 11/14/17 16:09 11/14/17 19:00 11/14/17 16:09 11/14/17 16:09 11/14/17 16:09 Intake & Output 11/13/17 11/14/17 11/15/17 06:59 06:59 06:59 Intake Total 1894 1456 1280 Output Total 2225 3150 1500 Balance -331 -1694 -220 Weight 122.6 kg 119 kg General appearance: PRESENT: no acute distress, cooperative, morbidly obese Head exam: PRESENT: atraumatic, normocephalic Eye exam: PRESENT: EOMI, PERRLA Mouth exam: PRESENT: moist, neck supple Neck exam: PRESENT: full ROM. ABSENT: tenderness Respiratory exam: PRESENT: decreased breath sounds. ABSENT: accessory muscle use, rales, rhonchi, wheezes Cardiovascular exam: PRESENT: RRR, +S1, +S2 Pulses: PRESENT: normal radial pulses, normal dorsalis pedis pul Vascular exam: PRESENT: normal capillary refill. ABSENT: pallor GI/Abdominal exam: PRESENT: diminished bowel sounds, soft. ABSENT: guarding, mass, rigid Extremities exam: PRESENT: full ROM. ABSENT: calf tenderness, clubbing Musculoskeletal exam: PRESENT: full ROM. ABSENT: ambulatory Neurological exam: PRESENT: alert, oriented to person, oriented to place, oriented to time, oriented to situation, CN II-XII grossly intact Psychiatric exam: ABSENT: agitated, anxious, manic Focused psych exam: ABSENT: delusional, paranoid Skin exam: ABSENT: abrasion, cyanosis Results Laboratory Results: 11/14/17 04:41 11/14/17 04:41 11/14/17 11/14/17 04:41 04:41 WBC 5.6 RBC 3.16 L Hgb 8.5 L Hct 26.9 L MCV 85 MCH 26.8 L MCHC 31.4 L RDW 18.5 H Plt Count 230 Sodium 139.4 Potassium 4.1 Chloride 90 L Carbon Dioxide 45 H* Anion Gap 4 L BUN 22 H Creatinine 0.75 Est GFR ( Amer) > 60 Est GFR (Non-Af Amer) > 60 Glucose 126 H Calcium 9.3 Phosphorus 4.2 Albumin 2.9 L Impressions: Chest X-Ray 11/10/17 00:00 IMPRESSION: Stable, chronic changes. Chest CT 11/11/17 00:00 IMPRESSION: Chronic interstitial changes and bronchiectasis accounting for the plain film appearance in the left lung. No evidence of empyema. Venous Doppler Study 11/13/17 00:00 IMPRESSION: NO EVIDENCE DVT OR SVT IN EITHER LEG. Assessment & Plan - Time Time Spent with patient: 15-24 minutes Anticipated discharge: Home Within: within 48 hours - Inpatient Certification Based on my medical assessment, after consideration of the patient's comorbidities, presenting symptoms, or acuity I expect that the services needed warrant INPATIENT care.: Yes Medical Necessity: Need for IV Antibiotics, Risk of Complication if Not Cared For in Hospital - Plan Summary Plan Summary: (1) Acute on chronic diastolic (congestive) heart failure replace potassium continue IV Lasix at 20mg BID, on home level of O2, good urine output, continued (2) Acute and chronic respiratory failure with hypercapnia per pulmonary resting on BIPAP when sleeping continue pulmonary medicines. (3) PNA (pneumonia), possible gram negative continue on IV Zosyn, Day 6 Left lower lobe opacity present on past CXRs CT Chest showed changes consistent with bronchiectosis and no empyema (4) Morbid obesity with BMI of 45.0-49.9, adult hypoventilatory syndrome component encouraged limiting calories and weight loss. (5) History of poliomyelitis Contributing to restrictive component (6) Troponin level elevated likely demand related ischemia, monitor for Chest pain complaints (7) Anemia monitor (8) Obesity hypoventilation syndrome bed bound status uses eliot lift at home for mobility (9) Sleep apnea resting on BIPAP at night and during sleeping in the day (10) Diabetes mellitus type 2 in obese Continue Lantus and continue Humalog sliding scale and bedside glucose AC and HS (11) Hypothyroid Continue home medications (12) Hyperkalemia resolved (13) Hypokalemia replacing, monitor (14) Atrial fibrillation Continue low dose Toprol XL (15) Bilateral leg pain US of lower extremities: negative for DVTs Disposition. Anticipate disposition back to patient's domestic residence given this is her choice on today's conversation. We will complete 7 days of antibiotics prior to discharge home. Patient is a high risk for returning to the hospital given her debilitated state.
[2017-11-14] MEDS: MONTELUKAST SODIUM 10 MG TABLET PO SCH (21:47)
[2017-11-14] MEDS: ATORVASTATIN CALCIUM 20 MG TABLET PO SCH (21:47)
[2017-11-15] MEDS: ACETYLCYSTEINE 20% SOLN 800 MG/4 ML VIAL.NEB NEB SCH ×4 (01:55→19:56)
[2017-11-15] MEDS: ALBUTEROL SULFATE 0.083% NEB 2.5 MG/3 ML AMPUL NEB PRN (01:55)
[2017-11-15 05:07] LABS: HEMATOCRIT 25.9 % (36.0-47.0); HEMOGLOBIN 8.2 g/dL (12.0-15.5); MEAN CORPUSCULAR HEMOGLOBIN 26.8 pg (27.0-33.4); MEAN CORPUSCULAR HGB CONC 31.6 g/dL (32.0-36.0); MEAN CORPUSCULAR VOLUME 85 fl (80-97); PLATELET COUNT 245 10^3/uL (150-450); RED BLOOD COUNT 3.05 10^6/uL (3.72-5.28); RED CELL DISTRIBUTION WIDTH 18.6 % (11.5-14.0); WHITE BLOOD COUNT 9.5 10^3/uL (4.0-10.5)
[2017-11-15] MEDS: HEPARIN SOD (PORCINE) 5,000 UNIT/ML 1 ML SYRINGE SUBCUT SCH ×3 (05:41→23:03)
[2017-11-15] MEDS: LANSOPRAZOLE 30 MG TAB.RAP.DR PO SCH (05:41)
[2017-11-15] MEDS: PIPERACILLIN SODIUM/TAZOBACTAM 3.375 GM in NORMAL SALINE 100 ML IV SCH ×3 (05:41→18:19)
[2017-11-15 05:59] LABS: BLOOD UREA NITROGEN 22 mg/dL (7-20); CALCIUM 9.3 mg/dL (8.4-10.2); CHLORIDE 90 mmol/L (98-107); GLUCOSE 133 mg/dL (75-110); PHOSPHORUS 3.6 mg/dL (2.5-4.5); SODIUM 138.1 mmol/L (137-145)
[2017-11-15 06:13] LABS: ANION GAP 5 (5-19)
[2017-11-15 06:15] LABS: CARBON DIOXIDE 43 mmol/L (22-30)
[2017-11-15] MEDS: IPRATROPIUM/ALBUTEROL 0.5-2.5 MG/3 ML AMPUL NEB SCH ×3 (08:46→19:56)
[2017-11-15] MEDS: POLYETHYLENE GLYCOL 3350 POWDER 17 GM/1 PACKET PO SCH (09:35)
[2017-11-15] MEDS: FUROSEMIDE INJ/PF 20 MG/2 ML SDV IV SCH (09:36)
[2017-11-15] MEDS: MAGNESIUM OXIDE 400 MG TABLET PO SCH ×3 (09:37→18:19)
[2017-11-15] MEDS: LORATADINE 10 MG TABLET PO SCH (09:37)
[2017-11-15] MEDS: CALCIUM CARBONATE 250 MG/VITAMIN D3 125 UNIT TABLET PO SCH (09:37)
[2017-11-15] MEDS: METOPROLOL SUCCINATE 25 MG TAB.SR.24H PO SCH (09:38)
[2017-11-15] MEDS: CLOPIDOGREL BISULFATE 75 MG TABLET PO SCH (09:38)
[2017-11-15] MEDS: MIDODRINE HCL 5 MG TABLET PO SCH ×3 (09:38→18:19)
[2017-11-15] MEDS: BUDESONIDE/FORMOTEROL 160-4.5 MCG 60 PUFF/6 GM MDI IH SCH ×2 (09:39→18:19)
[2017-11-15] MEDS: ASPIRIN 81 MG TABLET, ENT COATED PO SCH (09:39)
[2017-11-15] MEDS: DOCUSATE SODIUM 100 MG CAPSULE PO SCH (09:39)
[2017-11-15] MEDS: INSULIN GLARGINE,HUM.REC.ANLOG 300 UNIT/3 ML INSULN.PEN SUBCUT SCH (09:40)
[2017-11-15] MEDS: INSULIN LISPRO 100 UNIT/ML 3 ML VIAL SUBCUT PRN ×3 (11:36→23:04)
[2017-11-15] MEDS: LIOTHYRONINE SODIUM 5 MCG TABLET PO SCH (13:28)
[2017-11-15] MEDS: FUROSEMIDE 40 MG TABLET PO SCH (18:19)
--- NOTE | 2017-11-15 18:28 | PDOC PROGRESS REPORT ---
Subjective Progress Note for:: 11/15/17 Subjective:: Transition patient's IV Lasix to p.o. Lasix today. DAVE Kim. Spoke with the social worker aide regarding resetting up home health and physical therapy for this patient at discharge. O2 has been weaned down to 2 L nasal cannula today. Patient has frequent admissions to the hospital given her deconditioned/ debilitated state. At the end of today patient will be completing day 7 of her IV antibiotics for pneumonia. Anticipate possible discharge in the next 24-48 hours. Reason For Visit: ACUTE ON CHRONIC HYPOXIC/HYPERDAPNIC RESPIRATORY Physical Exam Vital Signs: Temp Pulse Resp BP Pulse Ox 98.9 F 74 24 H 111/42 L 98 11/15/17 15:50 11/15/17 15:50 11/15/17 15:50 11/15/17 15:50 11/15/17 15:59 Intake & Output 11/14/17 11/15/17 11/16/17 06:59 06:59 06:59 Intake Total 1456 2473 240 Output Total 3150 2300 600 Balance -1694 173 -360 Weight 119 kg 118 kg General appearance: PRESENT: no acute distress, cooperative, morbidly obese, clinically improved Head exam: PRESENT: atraumatic, normocephalic Eye exam: PRESENT: EOMI, PERRLA Mouth exam: PRESENT: moist, neck enlarged secondary to body size Neck exam: PRESENT: full ROM. ABSENT: tenderness Respiratory exam: PRESENT: decreased breath sounds. ABSENT: accessory muscle use, rales, rhonchi, wheezes Cardiovascular exam: PRESENT: RRR, +S1, +S2, 2+ radial pulses bilaterally Pulses: PRESENT: normal radial pulses, normal dorsalis pedis pul Vascular exam: PRESENT: normal capillary refill. ABSENT: pallor GI/Abdominal exam: PRESENT: diminished bowel sounds, soft. ABSENT: guarding, mass, rigid Extremities exam: PRESENT: full ROM. ABSENT: calf tenderness, clubbing Musculoskeletal exam: PRESENT: full ROM. ABSENT: ambulatory Neurological exam: PRESENT: alert, oriented to person, oriented to place, oriented to time, oriented to situation, CN II-XII grossly intact Psychiatric exam: ABSENT: agitated, anxious, manic Focused psych exam: ABSENT: delusional, paranoid Skin exam: ABSENT: abrasion, cyanosis, no rashes Results Laboratory Results: 11/15/17 04:30 11/15/17 04:30 11/15/17 11/15/17 04:30 04:30 WBC 9.5 RBC 3.05 L Hgb 8.2 L Hct 25.9 L MCV 85 MCH 26.8 L MCHC 31.6 L RDW 18.6 H Plt Count 245 Sodium 138.1 Potassium 4.0 Chloride 90 L Carbon Dioxide 43 H* Anion Gap 5 BUN 22 H Creatinine 0.78 Est GFR ( Amer) > 60 Est GFR (Non-Af Amer) > 60 Glucose 133 H Calcium 9.3 Phosphorus 3.6 Albumin 3.0 L Impressions: Chest X-Ray 11/10/17 00:00 IMPRESSION: Stable, chronic changes. Chest CT 11/11/17 00:00 IMPRESSION: Chronic interstitial changes and bronchiectasis accounting for the plain film appearance in the left lung. No evidence of empyema. Venous Doppler Study 11/13/17 00:00 IMPRESSION: NO EVIDENCE DVT OR SVT IN EITHER LEG. Assessment & Plan - Plan Summary Plan Summary: (1) Acute on chronic diastolic (congestive) heart failure replace potassium change IV lasix to PO lasix, monitor I/O on improved level of O2, 2L of NC good urine output, continued (2) Acute and chronic respiratory failure with hypercapnia per pulmonary resting on BIPAP when sleeping continue pulmonary medicines. hypercapnic with compensation at baseline. (3) PNA (pneumonia), possible gram negative CT Chest showed changes consistent with bronchiectosis and no empyema continue on IV Zosyn, Day 7, complete antibiotics at end of day. Left lower lobe opacity present on past CXRs (4) Morbid obesity with BMI of 45.0-49.9, adult hypoventilatory syndrome component encouraged limiting calories and weight loss. (5) History of poliomyelitis Contributing to restrictive component (6) Troponin level elevated likely demand related ischemia, monitor for Chest pain complaints (7) Anemia monitor (8) Obesity hypoventilation syndrome bed bound status uses rebecca lift at home for mobility resume PT and home health nursing at d/c (9) Sleep apnea resting on BIPAP at night and during sleeping in the day (10) Diabetes mellitus type 2 in obese Continue Lantus and continue Humalog sliding scale and bedside glucose AC and HS (11) Hypothyroid Continue home medications (12) Hyperkalemia resolved (13) Hypokalemia replacing, monitor (14) Atrial fibrillation Continue low dose Toprol XL (15) Bilateral leg pain US of lower extremities: negative for DVTs
--- NOTE | 2017-11-15 19:56 | PDOC CONSULTATION ---
Consultation Consult Date: 11/07/17 Attending physician:: MORENA AMBROSE Consult reason:: Acute on chronic respiratory failure History of Present Illness Admission Date/PCP: 11/06/17 16:08 History of Present Illness: ALBERTO DIAL is a 72 year old female who is well-known to [facility] due to recent hospitalization under similar circumstances. According patient she has been having shortness of breath which has been getting progressively worse over the past 4 days. Patient was discharged on AVAPS and she has been using it except for the past 4 days because was not able to breathe. patient continued to be short of breath. EMS called and on arrival pulse ox was in the 68% and BP was in the 60s. ABG PCO2 of 135. Patient is DO NOT RESUSCITATE and does not wish to be intubated. Sister states that there is no history of fever, chills or cough. Past Medical History Cardiac Medical History: Reports: Congestive Heart Failure - Diastolic, Coronary Artery Disease, Myocardial Infarction - cardiac stents x 2, Hyperlipidema, Hypertension, Heart Murmur - aortic stenosis Denies: DVT, Pulmonary Embolism Pulmonary Medical History: Reports: Asthma, Bronchitis, Chronic Obstructive Pulmonary Disease (COPD), Sleep Apnea - Bipap Denies: Pneumonia, Tuberculosis EENT Medical History: Reports: None Neurological Medical History: Denies: Seizures Endocrine Medical History: Reports: Diabetes Mellitus Type 2, Hypothyroidism Denies: Diabetes Mellitus Type 1, Hyperthyroidism Malignancy Medical History: Reports: None GI Medical History: Reports: Gastroesophageal Reflux Disease Denies: Cirrhosis, Hepatitis Musculoskeltal Medical History: Reports: Arthritis - generalized Psychiatric Medical History: Reports: Depression Traumatic Medical History: Reports: None Hematology: Reports: Anemia Infectious Medical History: Reports: Other Past Surgical History Past Surgical History: Reports: Appendectomy, Colostomy - then reversed, Hysterectomy, Orthopedic Surgery - carpal tunnel, polio surgery to left leg Denies: Pacemaker Social History Information Source: [facility] Records Lives with: Alone Smoking Status: Former Smoker Frequency of Alcohol Use: None Hx Recreational Drug Use: No Drugs: None Hx Prescription Drug Abuse: No Family History Family History: DM, Hyperlipidemia, Hypertension Parental Family History Reviewed: Yes Children Family History Reviewed: Yes Sibling(s) Family History Reviewed.: Yes Medication/Allergy Home Medications: Albuterol Sulfate [Albuterol Sulfate 2.5mg/3 mL] 1 vial IH Q4 PRN 09/23/17 Aspirin [Ecotrin 81 mg EC Tablet] 81 mg PO DAILY 09/23/17 Atorvastatin Calcium [Lipitor 20 mg Tablet] 20 mg PO QHS 09/23/17 Budesonide/Formoterol Fumarate [Symbicort 160-4.5 Mcg Inhaler] 2 puff IH BID 02/02 Calcium Carbonate/Vitamin D3 [Calcium 500-Vit D3 200 Caplet] 1 tab PO DAILY 02/02 Clopidogrel Bisulfate [Plavix 75 mg Tablet] 75 mg PO DAILY 09/23/17 Fexofenadine HCl [Rin] 180 mg PO DAILY 09/23/17 Liothyronine Sodium [Cytomel] 10 mcg PO NOON 09/23/17 Montelukast Sodium [Singulair 10 mg Tablet] 10 mg PO QHS 09/23/17 Omeprazole 40 mg PO DAILY 09/23/17 Potassium Chloride [Klor-Con 10 Meq Tablet.sa] 20 meq PO DAILY 09/23/17 Furosemide [Lasix 20 mg Tablet] 20 mg PO QAM #30 tablet 10/07/17 Metformin HCl [Glucophage 500 mg Tablet] 500 mg PO DAILY 10/17/17 Acetylcysteine [Mucomist 20% Soln 800 mg/4 ml] 200 mg NEB RTQ6 11/06/17 Nitroglycerin [Nitrostat 0.4 mg (1/150 Gr) Tabs 25/Bottle] 1 tab SL Q5MP PRN Allergies/Adverse Reactions: hydromorphone HCl [From Dilaudid] Allergy (Severe, Verified 09/10/17 19:00) Respiratory arrest codeine [Codeine] Allergy (Intermediate, Verified 09/10/17 19:00) Hallucinations Review of Systems Constitutional: PRESENT: chills, fever(s), weakness Eyes: ABSENT: visual disturbances Ears: ABSENT: hearing changes Nose, Mouth, and Throat: ABSENT: mouth pain, vertigo Cardiovascular: ABSENT: palpitations Respiratory: ABSENT: hemoptysis Gastrointestinal: ABSENT: coffee ground emesis, hematemesis, hematochezia, melena Genitourinary: ABSENT: dysuria, hematuria Musculoskeletal: ABSENT: joint swelling Integumentary: ABSENT: pruritus, rash Neurological: ABSENT: abnormal speech, confusion, focal weakness, frequent falls , lack of coordination, memory loss Psychiatric: ABSENT: hallucinations, homidical ideation, suicidal ideation Endocrine: ABSENT: cold intolerance, heat intolerance, menstrual abnormalities, polydipsia, polyuria Hematologic/Lymphatic: PRESENT: easy bruising Physical Exam Vital Signs: Temp Pulse Resp BP Pulse Ox 99.8 F 72 22 H 113/45 L 100 11/14/17 12:26 11/14/17 12:26 11/14/17 12:26 11/14/17 12:26 11/14/17 12:26 Intake & Output 11/13/17 11/14/17 11/15/17 06:59 06:59 06:59 Intake Total 1894 1456 600 Output Total 2229 3150 975 Balance -331 -5102 -155 Weight 122.6 kg 119 kg General appearance: PRESENT: no acute distress, cooperative, disheveled, morbidly obese Head exam: PRESENT: atraumatic, normocephalic Eye exam: PRESENT: conjunctiva pale, EOMI. ABSENT: nystagmus, periorbital swelling, scleral icterus Mouth exam: PRESENT: dry mucosa, neck supple, tongue midline Neck exam: ABSENT: carotid bruit, JVD, lymphadenopathy, thyromegaly, tracheal deviation, tracheostomy Respiratory exam: PRESENT: decreased breath sounds, prolonged expiratory phas, rhonchi, symmetrical, unlabored, wheezes. ABSENT: rales, retraction, stridor, tachypnea Cardiovascular exam: PRESENT: RRR, +S1, +S2 Pulses: PRESENT: normal radial pulses GI/Abdominal exam: PRESENT: diminished bowel sounds, soft Extremities exam: PRESENT: +1 edema. ABSENT: clubbing, joint swelling Musculoskeletal exam: ABSENT: ambulatory, deformity Neurological exam: PRESENT: alert, awake Psychiatric exam: PRESENT: flat affect Skin exam: PRESENT: dry, warm Results Laboratory Results: 11/14/17 04:41 11/14/17 04:41 11/14/17 11/14/17 04:41 04:41 WBC 5.6 RBC 3.16 L Hgb 8.5 L Hct 26.9 L MCV 85 MCH 26.8 L MCHC 31.4 L RDW 18.5 H Plt Count 230 Sodium 139.4 Potassium 4.1 Chloride 90 L Carbon Dioxide 45 H* Anion Gap 4 L BUN 22 H Creatinine 0.75 Est GFR ( Amer) > 60 Est GFR (Non-Af Amer) > 60 Glucose 126 H Calcium 9.3 Phosphorus 4.2 Albumin 2.9 L Impressions: Chest X-Ray 11/10/17 00:00 IMPRESSION: Stable, chronic changes. Chest CT 11/11/17 00:00 IMPRESSION: Chronic interstitial changes and bronchiectasis accounting for the plain film appearance in the left lung. No evidence of empyema. Venous Doppler Study 11/13/17 00:00 IMPRESSION: NO EVIDENCE DVT OR SVT IN EITHER LEG. Assessment & Plan - Diagnosis (1) Atrial fibrillation Qualifiers: Atrial fibrillation type: unspecified Qualified Code(s): I48.91 - Unspecified atrial fibrillation Is this a current diagnosis for this admission?: Yes Plan: stable (2) Morbid obesity with BMI of 45.0-49.9, adult Is this a current diagnosis for this admission?: Yes (3) CO2 narcosis Is this a current diagnosis for this admission?: Yes Plan: pco2 135 patient vacilates regarding compliance with trilogy (4) History of poliomyelitis Is this a current diagnosis for this admission?: Yes (5) Obesity hypoventilation syndrome Is this a current diagnosis for this admission?: Yes Plan: will always need NIPPV (6) Respiratory failure with hypoxia and hypercapnia Qualifiers: Chronicity: acute on chronic Qualified Code(s): J96.21 - Acute and chronic respiratory failure with hypoxia; J96.22 - Acute and chronic respiratory failure with hypercapnia; J96.22 - Acute and chronic respiratory failure with hypercapnia; J96.22 - Acute and chronic respiratory failure with hypercapnia (7) Sleep apnea Qualifiers: Sleep apnea type: obstructive Qualified Code(s): G47.33 - Obstructive sleep apnea (adult) (pediatric) Is this a current diagnosis for this admission?: Yes (8) Morbid obesity with BMI of 50.0-59.9, adult Is this a current diagnosis for this admission?: Yes
[2017-11-15] MEDS: MONTELUKAST SODIUM 10 MG TABLET PO SCH (23:02)
[2017-11-15] MEDS: ATORVASTATIN CALCIUM 20 MG TABLET PO SCH (23:03)
[2017-11-16] MEDS: PIPERACILLIN SODIUM/TAZOBACTAM 3.375 GM in NORMAL SALINE 100 ML IV SCH ×4 (01:06→18:13)
[2017-11-16] MEDS: ALBUTEROL SULFATE 0.083% NEB 2.5 MG/3 ML AMPUL NEB PRN (01:20)
[2017-11-16] MEDS: ACETYLCYSTEINE 20% SOLN 800 MG/4 ML VIAL.NEB NEB SCH ×4 (01:20→19:46)
[2017-11-16 05:49] LABS: HEMATOCRIT 24.7 % (36.0-47.0); MEAN CORPUSCULAR HEMOGLOBIN 26.9 pg (27.0-33.4); MEAN CORPUSCULAR HGB CONC 31.8 g/dL (32.0-36.0); MEAN CORPUSCULAR VOLUME 85 fl (80-97); PLATELET COUNT 255 10^3/uL (150-450); RED BLOOD COUNT 2.91 10^6/uL (3.72-5.28); RED CELL DISTRIBUTION WIDTH 18.2 % (11.5-14.0); WHITE BLOOD COUNT 6.2 10^3/uL (4.0-10.5)
[2017-11-16 05:54] LABS: HEMOGLOBIN 7.8 g/dL (12.0-15.5)
[2017-11-16 06:15] LABS: BLOOD UREA NITROGEN 25 mg/dL (7-20); CALCIUM 9.3 mg/dL (8.4-10.2); CHLORIDE 92 mmol/L (98-107); GLUCOSE 186 mg/dL (75-110); PHOSPHORUS 3.8 mg/dL (2.5-4.5); POTASSIUM 4.2 mmol/L (3.6-5.0); SODIUM 138.1 mmol/L (137-145)
[2017-11-16 06:23] LABS: ANION GAP 5 (5-19)
[2017-11-16 06:25] LABS: CARBON DIOXIDE 41 mmol/L (22-30)
[2017-11-16] MEDS: LANSOPRAZOLE 30 MG TAB.RAP.DR PO SCH (06:41)
[2017-11-16] MEDS: HEPARIN SOD (PORCINE) 5,000 UNIT/ML 1 ML SYRINGE SUBCUT SCH ×3 (06:41→22:26)
--- NOTE | 2017-11-16 07:56 | PDOC PROGRESS REPORT ---
Subjective Progress Note for:: 11/10/17 Subjective:: lethargic but more alert last 24h Reason For Visit: ACUTE ON CHRONIC HYPOXIC/HYPERDAPNIC RESPIRATORY Physical Exam Vital Signs: Temp Pulse Resp BP Pulse Ox 99.8 F 72 22 H 113/45 L 100 11/14/17 12:26 11/14/17 12:26 11/14/17 12:26 11/14/17 12:26 11/14/17 12:26 Intake & Output 11/13/17 11/14/17 11/15/17 06:59 06:59 06:59 Intake Total 1894 1456 600 Output Total 1840 3156 975 Balance -331 169 -560 Weight 122.6 kg 119 kg General appearance: PRESENT: no acute distress, cooperative, disheveled, morbidly obese Head exam: PRESENT: atraumatic, normocephalic Eye exam: PRESENT: conjunctiva pale, EOMI. ABSENT: nystagmus, periorbital swelling, scleral icterus Mouth exam: PRESENT: dry mucosa, neck supple, tongue midline Neck exam: ABSENT: carotid bruit, JVD, lymphadenopathy, thyromegaly, tracheal deviation, tracheostomy Respiratory exam: PRESENT: decreased breath sounds, prolonged expiratory phas, rales, rhonchi, symmetrical, unlabored, wheezes. ABSENT: stridor, tachypnea Cardiovascular exam: PRESENT: irregular rhythm Pulses: PRESENT: normal radial pulses GI/Abdominal exam: PRESENT: diminished bowel sounds, soft Extremities exam: PRESENT: +1 edema. ABSENT: calf tenderness, clubbing, joint swelling Musculoskeletal exam: ABSENT: ambulatory, deformity, dislocation Neurological exam: PRESENT: alert, awake Psychiatric exam: PRESENT: flat affect Skin exam: PRESENT: dry, warm Results Laboratory Results: 11/14/17 04:41 11/14/17 04:41 11/14/17 11/14/17 04:41 04:41 WBC 5.6 RBC 3.16 L Hgb 8.5 L Hct 26.9 L MCV 85 MCH 26.8 L MCHC 31.4 L RDW 18.5 H Plt Count 230 Sodium 139.4 Potassium 4.1 Chloride 90 L Carbon Dioxide 45 H* Anion Gap 4 L BUN 22 H Creatinine 0.75 Est GFR ( Amer) > 60 Est GFR (Non-Af Amer) > 60 Glucose 126 H Calcium 9.3 Phosphorus 4.2 Albumin 2.9 L Impressions: Chest X-Ray 11/10/17 00:00 IMPRESSION: Stable, chronic changes. Chest CT 11/11/17 00:00 IMPRESSION: Chronic interstitial changes and bronchiectasis accounting for the plain film appearance in the left lung. No evidence of empyema. Venous Doppler Study 11/13/17 00:00 IMPRESSION: NO EVIDENCE DVT OR SVT IN EITHER LEG. Assessment & Plan - Diagnosis (1) Aspiration pneumonia Qualifiers: Lung location: unspecified part of lung Is this a current diagnosis for this admission?: Yes (2) CO2 narcosis Is this a current diagnosis for this admission?: Yes Plan: pco2 135 patient vacilates regarding compliance with trilogy (3) History of poliomyelitis Is this a current diagnosis for this admission?: Yes (4) Obesity hypoventilation syndrome Is this a current diagnosis for this admission?: Yes Plan: will always need NIPPV (5) Respiratory failure with hypoxia and hypercapnia Qualifiers: Chronicity: acute on chronic Qualified Code(s): J96.21 - Acute and chronic respiratory failure with hypoxia; J96.22 - Acute and chronic respiratory failure with hypercapnia; J96.22 - Acute and chronic respiratory failure with hypercapnia; J96.22 - Acute and chronic respiratory failure with hypercapnia Is this a current diagnosis for this admission?: Yes (6) Sleep apnea Qualifiers: Sleep apnea type: obstructive Qualified Code(s): G47.33 - Obstructive sleep apnea (adult) (pediatric) Is this a current diagnosis for this admission?: Yes (7) Morbid obesity with BMI of 50.0-59.9, adult Is this a current diagnosis for this admission?: Yes
--- NOTE | 2017-11-16 07:58 | PDOC PROGRESS REPORT ---
Subjective Progress Note for:: 11/11/17 Subjective:: lethargic but more alert last 24h Reason For Visit: ACUTE ON CHRONIC HYPOXIC/HYPERDAPNIC RESPIRATORY Physical Exam Vital Signs: Temp Pulse Resp BP Pulse Ox 99.8 F 72 22 H 113/45 L 100 11/14/17 12:26 11/14/17 12:26 11/14/17 12:26 11/14/17 12:26 11/14/17 12:26 Intake & Output 11/13/17 11/14/17 11/15/17 06:59 06:59 06:59 Intake Total 1894 1456 600 Output Total 2223 3158 975 Balance -331 1695 -947 Weight 122.6 kg 119 kg General appearance: PRESENT: no acute distress, cooperative, disheveled, morbidly obese Head exam: PRESENT: atraumatic, normocephalic Eye exam: PRESENT: conjunctiva pale, EOMI. ABSENT: scleral icterus Mouth exam: PRESENT: dry mucosa, neck supple, tongue midline Neck exam: ABSENT: carotid bruit, JVD, lymphadenopathy, thyromegaly, tracheal deviation Respiratory exam: PRESENT: decreased breath sounds, prolonged expiratory phas, rhonchi, symmetrical, unlabored. ABSENT: rales, retraction, stridor, tachypnea Cardiovascular exam: PRESENT: irregular rhythm Pulses: PRESENT: normal radial pulses GI/Abdominal exam: PRESENT: diminished bowel sounds, soft Extremities exam: ABSENT: clubbing, joint swelling Musculoskeletal exam: ABSENT: deformity, dislocation Neurological exam: PRESENT: alert, awake Psychiatric exam: PRESENT: normal mood Skin exam: PRESENT: dry, warm Results Laboratory Results: 11/14/17 04:41 11/14/17 04:41 11/14/17 11/14/17 04:41 04:41 WBC 5.6 RBC 3.16 L Hgb 8.5 L Hct 26.9 L MCV 85 MCH 26.8 L MCHC 31.4 L RDW 18.5 H Plt Count 230 Sodium 139.4 Potassium 4.1 Chloride 90 L Carbon Dioxide 45 H* Anion Gap 4 L BUN 22 H Creatinine 0.75 Est GFR ( Amer) > 60 Est GFR (Non-Af Amer) > 60 Glucose 126 H Calcium 9.3 Phosphorus 4.2 Albumin 2.9 L Impressions: Chest X-Ray 11/10/17 00:00 IMPRESSION: Stable, chronic changes. Chest CT 11/11/17 00:00 IMPRESSION: Chronic interstitial changes and bronchiectasis accounting for the plain film appearance in the left lung. No evidence of empyema. Venous Doppler Study 11/13/17 00:00 IMPRESSION: NO EVIDENCE DVT OR SVT IN EITHER LEG. Assessment & Plan - Diagnosis (1) Acute and chronic respiratory failure Qualifiers: Respiratory failure complication: hypoxia and hypercapnia Qualified Code(s) : J96.21 - Acute and chronic respiratory failure with hypoxia; J96.22 - Acute and chronic respiratory failure with hypercapnia; J96.22 - Acute and chronic respiratory failure with hypercapnia; J96.22 - Acute and chronic respiratory failure with hypercapnia Is this a current diagnosis for this admission?: Yes (2) Aspiration pneumonia Qualifiers: Lung location: unspecified part of lung Is this a current diagnosis for this admission?: Yes (3) CO2 narcosis Is this a current diagnosis for this admission?: Yes Plan: pco2 135 patient vacilates regarding compliance with trilogy (5) Obesity hypoventilation syndrome Is this a current diagnosis for this admission?: Yes Plan: will always need NIPPV (6) Sleep apnea Qualifiers: Sleep apnea type: obstructive Qualified Code(s): G47.33 - Obstructive sleep apnea (adult) (pediatric) Is this a current diagnosis for this admission?: Yes (7) Morbid obesity with BMI of 50.0-59.9, adult Is this a current diagnosis for this admission?: Yes
[2017-11-16] MEDS: IPRATROPIUM/ALBUTEROL 0.5-2.5 MG/3 ML AMPUL NEB SCH ×3 (08:20→19:46)
[2017-11-16] MEDS: BUDESONIDE/FORMOTEROL 160-4.5 MCG 60 PUFF/6 GM MDI IH SCH ×2 (09:35→18:06)
[2017-11-16] MEDS: DOCUSATE SODIUM 100 MG CAPSULE PO SCH (09:35)
[2017-11-16] MEDS: POLYETHYLENE GLYCOL 3350 POWDER 17 GM/1 PACKET PO SCH (09:35)
[2017-11-16] MEDS: LORATADINE 10 MG TABLET PO SCH (09:35)
[2017-11-16] MEDS: INSULIN LISPRO 100 UNIT/ML 3 ML VIAL SUBCUT PRN ×4 (09:35→22:25)
[2017-11-16] MEDS: CALCIUM CARBONATE 250 MG/VITAMIN D3 125 UNIT TABLET PO SCH (09:35)
[2017-11-16] MEDS: CLOPIDOGREL BISULFATE 75 MG TABLET PO SCH (09:35)
[2017-11-16] MEDS: MIDODRINE HCL 5 MG TABLET PO SCH ×3 (09:35→18:10)
[2017-11-16] MEDS: MAGNESIUM OXIDE 400 MG TABLET PO SCH ×3 (09:35→18:10)
[2017-11-16] MEDS: FUROSEMIDE 40 MG TABLET PO SCH ×2 (09:35→18:10)
[2017-11-16] MEDS: ASPIRIN 81 MG TABLET, ENT COATED PO SCH (09:35)
[2017-11-16] MEDS: INSULIN GLARGINE,HUM.REC.ANLOG 300 UNIT/3 ML INSULN.PEN SUBCUT SCH (09:36)
[2017-11-16] MEDS: METOPROLOL SUCCINATE 25 MG TAB.SR.24H PO SCH (09:36)
[2017-11-16] MEDS: LIOTHYRONINE SODIUM 5 MCG TABLET PO SCH (12:48)
--- NOTE | 2017-11-16 13:18 | PDOC PROGRESS REPORT ---
Subjective Progress Note for:: 11/16/17 Subjective:: Doing better today. O2 requirements continue to be weaned. Eager for discharge to home. Denies fevers, chills, CP, SOB Reason For Visit: ACUTE ON CHRONIC HYPOXIC/HYPERDAPNIC RESPIRATORY Physical Exam Vital Signs: Temp Pulse Resp BP Pulse Ox 97.7 F 57 L 15 109/45 L 100 11/16/17 07:50 11/16/17 08:20 11/16/17 08:20 11/16/17 07:50 11/16/17 08:20 Intake & Output 11/15/17 11/16/17 11/17/17 06:59 06:59 06:59 Intake Total 2473 1290 Output Total 2300 2050 Balance 173 -760 Weight 118 kg 117.7 kg General appearance: PRESENT: no acute distress, morbidly obese Mouth exam: PRESENT: moist Respiratory exam: PRESENT: decreased breath sounds, unlabored - On supplemental 02. ABSENT: crackles, wheezes Cardiovascular exam: PRESENT: +S1, +S2. ABSENT: tachycardia GI/Abdominal exam: PRESENT: soft. ABSENT: tenderness Neurological exam: PRESENT: alert, awake, CN II-XII grossly intact Psychiatric exam: PRESENT: normal mood Results Laboratory Results: 11/16/17 05:09 11/16/17 05:09 11/16/17 11/16/17 05:09 05:09 WBC 6.2 RBC 2.91 L Hgb 7.8 L Hct 24.7 L MCV 85 MCH 26.9 L MCHC 31.8 L RDW 18.2 H Plt Count 255 Sodium 138.1 Potassium 4.2 Chloride 92 L Carbon Dioxide 41 H* Anion Gap 5 BUN 25 H Creatinine 0.77 Est GFR ( Amer) > 60 Est GFR (Non-Af Amer) > 60 Glucose 186 H Calcium 9.3 Phosphorus 3.8 Albumin 3.0 L Impressions: Chest X-Ray 11/10/17 00:00 IMPRESSION: Stable, chronic changes. Chest CT 11/11/17 00:00 IMPRESSION: Chronic interstitial changes and bronchiectasis accounting for the plain film appearance in the left lung. No evidence of empyema. Venous Doppler Study 11/13/17 00:00 IMPRESSION: NO EVIDENCE DVT OR SVT IN EITHER LEG. Assessment & Plan - Diagnosis (1) Acute and chronic respiratory failure Qualifiers: Respiratory failure complication: hypoxia and hypercapnia Qualified Code(s) : J96.21 - Acute and chronic respiratory failure with hypoxia; J96.22 - Acute and chronic respiratory failure with hypercapnia; J96.22 - Acute and chronic respiratory failure with hypercapnia; J96.22 - Acute and chronic respiratory failure with hypercapnia Is this a current diagnosis for this admission?: Yes Plan: Improving, management of PNA per below. Continue BiPAP at night. Labs consistent with compensated hypercapnia, unchanged from previous (2) PNA (pneumonia) Qualifiers: Laterality: left Lung location: lower lobe of lung Is this a current diagnosis for this admission?: Yes Plan: Improving, CT Chest showed changes consistent with bronchiectosis and no empyema - Continue on IV Zosyn, end date 11/17 - Continue supplemental O2, wean down as tolerated, O2 sats>90% (3) Morbid obesity with BMI of 45.0-49.9, adult Is this a current diagnosis for this admission?: Yes Plan: Continue weight control (4) Acute on chronic diastolic (congestive) heart failure Is this a current diagnosis for this admission?: Yes Plan: Continue PO lasix 40mg BID, net goal -1L daily - Monitor daily weights, I&Os (5) Sleep apnea Qualifiers: Sleep apnea type: obstructive Qualified Code(s): G47.33 - Obstructive sleep apnea (adult) (pediatric) Is this a current diagnosis for this admission?: Yes Plan: Use BiPAP at night. - Time Time Spent with patient: Less than 15 minutes Anticipated discharge: Home, Home with Homehealth Within: within 24 hours
[2017-11-16] MEDS: ATORVASTATIN CALCIUM 20 MG TABLET PO SCH (22:25)
[2017-11-16] MEDS: MONTELUKAST SODIUM 10 MG TABLET PO SCH (22:25)
[2017-11-17] MEDS: PIPERACILLIN SODIUM/TAZOBACTAM 3.375 GM in NORMAL SALINE 100 ML IV SCH ×5 (00:15→22:50)
[2017-11-17] MEDS: ALBUTEROL SULFATE 0.083% NEB 2.5 MG/3 ML AMPUL NEB PRN (01:50)
[2017-11-17] MEDS: ACETYLCYSTEINE 20% SOLN 800 MG/4 ML VIAL.NEB NEB SCH ×4 (01:53→20:00)
[2017-11-17] MEDS: LANSOPRAZOLE 30 MG TAB.RAP.DR PO SCH (05:18)
[2017-11-17 05:29] LABS: HEMATOCRIT 24.9 % (36.0-47.0); MEAN CORPUSCULAR HEMOGLOBIN 26.9 pg (27.0-33.4); MEAN CORPUSCULAR HGB CONC 31.5 g/dL (32.0-36.0); MEAN CORPUSCULAR VOLUME 86 fl (80-97); PLATELET COUNT 273 10^3/uL (150-450); RED BLOOD COUNT 2.91 10^6/uL (3.72-5.28); RED CELL DISTRIBUTION WIDTH 18.5 % (11.5-14.0); WHITE BLOOD COUNT 7.5 10^3/uL (4.0-10.5)
[2017-11-17 05:37] LABS: HEMOGLOBIN 7.8 g/dL (12.0-15.5)
[2017-11-17 05:53] LABS: BLOOD UREA NITROGEN 27 mg/dL (7-20); CALCIUM 9.3 mg/dL (8.4-10.2); CHLORIDE 92 mmol/L (98-107); GLUCOSE 158 mg/dL (75-110); POTASSIUM 4.2 mmol/L (3.6-5.0); SODIUM 137.9 mmol/L (137-145)
[2017-11-17 06:02] LABS: ANION GAP 5 (5-19)
[2017-11-17 06:03] LABS: CARBON DIOXIDE 41 mmol/L (22-30)
[2017-11-17] MEDS: HEPARIN SOD (PORCINE) 5,000 UNIT/ML 1 ML SYRINGE SUBCUT SCH ×3 (06:13→22:48)
[2017-11-17] MEDS: IPRATROPIUM/ALBUTEROL 0.5-2.5 MG/3 ML AMPUL NEB SCH ×3 (07:43→19:59)
[2017-11-17] MEDS: POLYETHYLENE GLYCOL 3350 POWDER 17 GM/1 PACKET PO SCH (10:00)
[2017-11-17] MEDS: DOCUSATE SODIUM 100 MG CAPSULE PO SCH (11:03)
[2017-11-17] MEDS: CALCIUM CARBONATE 250 MG/VITAMIN D3 125 UNIT TABLET PO SCH (11:03)
[2017-11-17] MEDS: LIOTHYRONINE SODIUM 5 MCG TABLET PO SCH (11:03)
[2017-11-17] MEDS: CLOPIDOGREL BISULFATE 75 MG TABLET PO SCH (11:03)
[2017-11-17] MEDS: MIDODRINE HCL 5 MG TABLET PO SCH ×3 (11:03→17:30)
[2017-11-17] MEDS: FUROSEMIDE 40 MG TABLET PO SCH ×2 (11:03→17:31)
[2017-11-17] MEDS: LORATADINE 10 MG TABLET PO SCH (11:04)
[2017-11-17] MEDS: MAGNESIUM OXIDE 400 MG TABLET PO SCH ×3 (11:05→17:29)
[2017-11-17] MEDS: METOPROLOL SUCCINATE 25 MG TAB.SR.24H PO SCH (11:05)
[2017-11-17] MEDS: ASPIRIN 81 MG TABLET, ENT COATED PO SCH (11:05)
[2017-11-17] MEDS: INSULIN LISPRO 100 UNIT/ML 3 ML VIAL SUBCUT PRN ×2 (11:06→17:31)
[2017-11-17] MEDS: BUDESONIDE/FORMOTEROL 160-4.5 MCG 60 PUFF/6 GM MDI IH SCH ×2 (11:06→17:32)
[2017-11-17] MEDS: INSULIN GLARGINE,HUM.REC.ANLOG 300 UNIT/3 ML INSULN.PEN SUBCUT SCH (11:06)
[2017-11-17] MEDS ORDERED: PIPERACILLIN SODIUM/TAZOBACTAM 3.375 GM in NORMAL SALINE 100 ML IV SCH (12:00)
--- NOTE | 2017-11-17 16:10 | PDOC PROGRESS REPORT ---
Subjective Progress Note for:: 11/12/17 Subjective:: more alert last 24h Reason For Visit: ACUTE ON CHRONIC HYPOXIC/HYPERDAPNIC RESPIRATORY Physical Exam Vital Signs: Temp Pulse Resp BP Pulse Ox 99.8 F 72 22 H 113/45 L 100 11/14/17 12:26 11/14/17 12:26 11/14/17 12:26 11/14/17 12:26 11/14/17 12:26 Intake & Output 11/13/17 11/14/17 11/15/17 06:59 06:59 06:59 Intake Total 1894 1456 600 Output Total 2226 1751 975 Balance -331 -5804 -772 Weight 122.6 kg 119 kg General appearance: PRESENT: no acute distress, cooperative, disheveled, morbidly obese Head exam: PRESENT: atraumatic, normocephalic Eye exam: PRESENT: conjunctiva pale, EOMI. ABSENT: nystagmus, periorbital swelling, scleral icterus Mouth exam: PRESENT: dry mucosa, neck supple, tongue midline Neck exam: ABSENT: carotid bruit, JVD, lymphadenopathy, thyromegaly, tracheal deviation, tracheostomy Respiratory exam: PRESENT: decreased breath sounds, prolonged expiratory phas, rales, rhonchi, symmetrical, wheezes. ABSENT: retraction, stridor Cardiovascular exam: PRESENT: RRR, +S1, +S2 Pulses: PRESENT: normal radial pulses GI/Abdominal exam: PRESENT: diminished bowel sounds, soft Extremities exam: PRESENT: +1 edema. ABSENT: clubbing, joint swelling Musculoskeletal exam: ABSENT: ambulatory, deformity, dislocation Neurological exam: PRESENT: awake, oriented to person, oriented to place. ABSENT: oriented to time, oriented to situation Skin exam: PRESENT: dry, warm Results Laboratory Results: 11/14/17 04:41 11/14/17 04:41 11/14/17 11/14/17 04:41 04:41 WBC 5.6 RBC 3.16 L Hgb 8.5 L Hct 26.9 L MCV 85 MCH 26.8 L MCHC 31.4 L RDW 18.5 H Plt Count 230 Sodium 139.4 Potassium 4.1 Chloride 90 L Carbon Dioxide 45 H* Anion Gap 4 L BUN 22 H Creatinine 0.75 Est GFR ( Amer) > 60 Est GFR (Non-Af Amer) > 60 Glucose 126 H Calcium 9.3 Phosphorus 4.2 Albumin 2.9 L Impressions: Chest X-Ray 11/10/17 00:00 IMPRESSION: Stable, chronic changes. Chest CT 11/11/17 00:00 IMPRESSION: Chronic interstitial changes and bronchiectasis accounting for the plain film appearance in the left lung. No evidence of empyema. Venous Doppler Study 11/13/17 00:00 IMPRESSION: NO EVIDENCE DVT OR SVT IN EITHER LEG. Assessment & Plan - Diagnosis (1) Atrial fibrillation Qualifiers: Atrial fibrillation type: unspecified Qualified Code(s): I48.91 - Unspecified atrial fibrillation Is this a current diagnosis for this admission?: Yes Plan: stable (2) Morbid obesity with BMI of 45.0-49.9, adult Is this a current diagnosis for this admission?: Yes (3) Acute and chronic respiratory failure with hypercapnia Is this a current diagnosis for this admission?: Yes Plan: DAYTON+O-H syndrome+COPD + (4) History of poliomyelitis Is this a current diagnosis for this admission?: Yes (5) Morbid obesity with alveolar hypoventilation Is this a current diagnosis for this admission?: Yes Plan: needs chronic NIPPV (6) Sleep apnea Qualifiers: Sleep apnea type: obstructive Qualified Code(s): G47.33 - Obstructive sleep apnea (adult) (pediatric) Is this a current diagnosis for this admission?: Yes Plan: Needs chronic NIPPV
--- NOTE | 2017-11-17 16:17 | PDOC PROGRESS REPORT ---
Subjective Progress Note for:: 11/13/17 Subjective:: more alert last 24h Reason For Visit: ACUTE ON CHRONIC HYPOXIC/HYPERDAPNIC RESPIRATORY Physical Exam Vital Signs: Temp Pulse Resp BP Pulse Ox 99.8 F 72 22 H 113/45 L 100 11/14/17 12:26 11/14/17 12:26 11/14/17 12:26 11/14/17 12:26 11/14/17 12:26 Intake & Output 11/13/17 11/14/17 11/15/17 06:59 06:59 06:59 Intake Total 1894 1456 600 Output Total 2228 3152 975 Balance -331 -6587 -994 Weight 122.6 kg 119 kg General appearance: PRESENT: cooperative, disheveled, morbidly obese Head exam: PRESENT: atraumatic, normocephalic Eye exam: PRESENT: conjunctiva pale, EOMI. ABSENT: nystagmus, periorbital swelling, scleral icterus Mouth exam: PRESENT: dry mucosa, neck supple, tongue midline Neck exam: ABSENT: carotid bruit, JVD, lymphadenopathy, thyromegaly, tracheal deviation, tracheostomy Respiratory exam: PRESENT: decreased breath sounds, prolonged expiratory phas, rales, rhonchi, symmetrical, wheezes. ABSENT: retraction, stridor Cardiovascular exam: PRESENT: RRR, +S1, +S2 Pulses: PRESENT: normal radial pulses GI/Abdominal exam: PRESENT: diminished bowel sounds, soft Extremities exam: PRESENT: +1 edema. ABSENT: calf tenderness, clubbing, joint swelling Musculoskeletal exam: ABSENT: ambulatory, deformity, dislocation Neurological exam: PRESENT: awake Skin exam: PRESENT: dry, warm Results Laboratory Results: 11/14/17 04:41 11/14/17 04:41 11/14/17 11/14/17 04:41 04:41 WBC 5.6 RBC 3.16 L Hgb 8.5 L Hct 26.9 L MCV 85 MCH 26.8 L MCHC 31.4 L RDW 18.5 H Plt Count 230 Sodium 139.4 Potassium 4.1 Chloride 90 L Carbon Dioxide 45 H* Anion Gap 4 L BUN 22 H Creatinine 0.75 Est GFR ( Amer) > 60 Est GFR (Non-Af Amer) > 60 Glucose 126 H Calcium 9.3 Phosphorus 4.2 Albumin 2.9 L Impressions: Chest X-Ray 11/10/17 00:00 IMPRESSION: Stable, chronic changes. Chest CT 11/11/17 00:00 IMPRESSION: Chronic interstitial changes and bronchiectasis accounting for the plain film appearance in the left lung. No evidence of empyema. Venous Doppler Study 11/13/17 00:00 IMPRESSION: NO EVIDENCE DVT OR SVT IN EITHER LEG. Assessment & Plan - Diagnosis (1) Atrial fibrillation Qualifiers: Atrial fibrillation type: unspecified Qualified Code(s): I48.91 - Unspecified atrial fibrillation Is this a current diagnosis for this admission?: Yes Plan: stable (2) Morbid obesity with BMI of 45.0-49.9, adult Is this a current diagnosis for this admission?: Yes (3) CO2 narcosis Is this a current diagnosis for this admission?: Yes Plan: pco2 135 patient vacilates regarding compliance with trilogy (4) History of poliomyelitis Is this a current diagnosis for this admission?: Yes (5) Obesity hypoventilation syndrome Is this a current diagnosis for this admission?: Yes (6) Sleep apnea Qualifiers: Sleep apnea type: obstructive Qualified Code(s): G47.33 - Obstructive sleep apnea (adult) (pediatric) Is this a current diagnosis for this admission?: Yes Plan: Needs chronic NIPPV
--- NOTE | 2017-11-17 16:24 | PDOC PROGRESS REPORT ---
Subjective Progress Note for:: 11/14/17 Subjective:: more alert Reason For Visit: ACUTE ON CHRONIC HYPOXIC/HYPERDAPNIC RESPIRATORY Physical Exam Vital Signs: Temp Pulse Resp BP Pulse Ox 99.8 F 72 22 H 113/45 L 100 11/14/17 12:26 11/14/17 12:26 11/14/17 12:26 11/14/17 12:26 11/14/17 12:26 Intake & Output 11/13/17 11/14/17 11/15/17 06:59 06:59 06:59 Intake Total 1894 1456 600 Output Total 2226 315 975 Balance -334 -2307 -579 Weight 122.6 kg 119 kg General appearance: PRESENT: no acute distress, cooperative, disheveled, morbidly obese Head exam: PRESENT: atraumatic, normocephalic Eye exam: PRESENT: conjunctiva pale, EOMI. ABSENT: nystagmus, periorbital swelling, scleral icterus Mouth exam: PRESENT: dry mucosa, neck supple, tongue midline Neck exam: ABSENT: carotid bruit, JVD, lymphadenopathy, thyromegaly, tracheal deviation, tracheostomy Respiratory exam: PRESENT: decreased breath sounds, prolonged expiratory phas, rales, rhonchi, symmetrical, unlabored. ABSENT: retraction, stridor, tachypnea Cardiovascular exam: PRESENT: RRR, +S1, +S2 Pulses: PRESENT: normal radial pulses GI/Abdominal exam: PRESENT: diminished bowel sounds, soft Extremities exam: ABSENT: calf tenderness, clubbing, joint swelling Musculoskeletal exam: ABSENT: deformity, dislocation Neurological exam: PRESENT: awake Skin exam: PRESENT: dry, warm Results Laboratory Results: 11/14/17 04:41 11/14/17 04:41 11/14/17 11/14/17 04:41 04:41 WBC 5.6 RBC 3.16 L Hgb 8.5 L Hct 26.9 L MCV 85 MCH 26.8 L MCHC 31.4 L RDW 18.5 H Plt Count 230 Sodium 139.4 Potassium 4.1 Chloride 90 L Carbon Dioxide 45 H* Anion Gap 4 L BUN 22 H Creatinine 0.75 Est GFR ( Amer) > 60 Est GFR (Non-Af Amer) > 60 Glucose 126 H Calcium 9.3 Phosphorus 4.2 Albumin 2.9 L Impressions: Chest X-Ray 11/10/17 00:00 IMPRESSION: Stable, chronic changes. Chest CT 11/11/17 00:00 IMPRESSION: Chronic interstitial changes and bronchiectasis accounting for the plain film appearance in the left lung. No evidence of empyema. Venous Doppler Study 11/13/17 00:00 IMPRESSION: NO EVIDENCE DVT OR SVT IN EITHER LEG. Assessment & Plan - Diagnosis (1) Atrial fibrillation Qualifiers: Atrial fibrillation type: unspecified Qualified Code(s): I48.91 - Unspecified atrial fibrillation Is this a current diagnosis for this admission?: Yes Plan: stable (2) Morbid obesity with BMI of 45.0-49.9, adult Is this a current diagnosis for this admission?: Yes (3) Acute and chronic respiratory failure with hypercapnia Is this a current diagnosis for this admission?: Yes Plan: DAYTON+O-H syndrome+COPD + (4) CO2 narcosis Is this a current diagnosis for this admission?: Yes Plan: pco2 135 patient vacilates regarding compliance with trilogy (5) History of poliomyelitis Is this a current diagnosis for this admission?: Yes (6) Obesity hypoventilation syndrome Is this a current diagnosis for this admission?: Yes Plan: will always need NIPPV (7) Sleep apnea Qualifiers: Sleep apnea type: obstructive Qualified Code(s): G47.33 - Obstructive sleep apnea (adult) (pediatric) Is this a current diagnosis for this admission?: Yes Plan: Needs chronic NIPPV
--- NOTE | 2017-11-17 16:28 | PDOC PROGRESS REPORT ---
Subjective Progress Note for:: 11/17/17 Subjective:: more alert Reason For Visit: ACUTE ON CHRONIC HYPOXIC/HYPERDAPNIC RESPIRATORY Physical Exam Vital Signs: Temp Pulse Resp BP Pulse Ox 98.8 F 66 18 146/50 H 98 11/17/17 11:25 11/17/17 14:00 11/17/17 13:58 11/17/17 11:25 11/17/17 13:58 Intake & Output 11/16/17 11/17/17 11/18/17 06:59 06:59 06:59 Intake Total 1290 1568 473 Output Total 2050 850 Balance -760 718 473 Weight 117.7 kg 118 kg General appearance: PRESENT: no acute distress, cooperative, disheveled, morbidly obese Head exam: PRESENT: atraumatic, normocephalic Eye exam: PRESENT: conjunctiva pale, EOMI. ABSENT: nystagmus, periorbital swelling, scleral icterus Mouth exam: PRESENT: dry mucosa, neck supple, tongue midline Neck exam: ABSENT: carotid bruit, JVD, lymphadenopathy, thyromegaly, tracheal deviation, tracheostomy Cardiovascular exam: PRESENT: irregular rhythm Pulses: PRESENT: normal radial pulses GI/Abdominal exam: PRESENT: diminished bowel sounds, soft Gentrourinary exam: PRESENT: indwelling catheter Extremities exam: PRESENT: +1 edema. ABSENT: calf tenderness, clubbing, joint swelling Musculoskeletal exam: ABSENT: deformity, dislocation Neurological exam: PRESENT: alert, awake Skin exam: PRESENT: dry, warm Results Laboratory Results: 11/17/17 04:24 11/17/17 04:24 11/17/17 11/17/17 04:24 04:24 WBC 7.5 RBC 2.91 L Hgb 7.8 L Hct 24.9 L MCV 86 MCH 26.9 L MCHC 31.5 L RDW 18.5 H Plt Count 273 Sodium 137.9 Potassium 4.2 Chloride 92 L Carbon Dioxide 41 H* Anion Gap 5 BUN 27 H Creatinine 0.77 Est GFR ( Amer) > 60 Est GFR (Non-Af Amer) > 60 Glucose 158 H Calcium 9.3 Impressions: Chest X-Ray 11/10/17 00:00 IMPRESSION: Stable, chronic changes. Chest CT 11/11/17 00:00 IMPRESSION: Chronic interstitial changes and bronchiectasis accounting for the plain film appearance in the left lung. No evidence of empyema. Venous Doppler Study 11/13/17 00:00 IMPRESSION: NO EVIDENCE DVT OR SVT IN EITHER LEG. Assessment & Plan - Diagnosis (1) Atrial fibrillation Qualifiers: Atrial fibrillation type: unspecified Qualified Code(s): I48.91 - Unspecified atrial fibrillation Is this a current diagnosis for this admission?: Yes Plan: stable (2) Morbid obesity with BMI of 45.0-49.9, adult Is this a current diagnosis for this admission?: Yes (3) Acute and chronic respiratory failure with hypercapnia Is this a current diagnosis for this admission?: Yes Plan: DAYTON+O-H syndrome+COPD + (4) CO2 narcosis Is this a current diagnosis for this admission?: Yes Plan: pco2 135 patient vacilates regarding compliance with trilogy (5) History of poliomyelitis Is this a current diagnosis for this admission?: Yes (6) Obesity hypoventilation syndrome Is this a current diagnosis for this admission?: Yes Plan: will always need NIPPV (7) Sleep apnea Qualifiers: Sleep apnea type: obstructive Qualified Code(s): G47.33 - Obstructive sleep apnea (adult) (pediatric) Is this a current diagnosis for this admission?: Yes Plan: Needs chronic NIPPV
[2017-11-17] MEDS: ACETAMINOPHEN 325 MG TABLET PO PRN (17:30)
--- NOTE | 2017-11-17 18:22 | PDOC PROGRESS REPORT ---
Subjective Progress Note for:: 11/17/17 Subjective:: No complaints Review of system All organ systems evaluated and negative except as in subjective All significant laboratories and diagnostics have Reason For Visit: ACUTE ON CHRONIC HYPOXIC/HYPERDAPNIC RESPIRATORY Physical Exam Vital Signs: Temp Pulse Resp BP Pulse Ox 98.8 F 66 28 H 138/44 H 100 11/17/17 15:43 11/17/17 15:43 11/17/17 15:43 11/17/17 15:43 11/17/17 15:43 Intake & Output 11/16/17 11/17/17 11/18/17 06:59 06:59 06:59 Intake Total 1290 1568 473 Output Total 2050 850 Balance -760 718 473 Weight 117.7 kg 118 kg General appearance: PRESENT: cooperative, morbidly obese Head exam: PRESENT: atraumatic, normocephalic Eye exam: PRESENT: conjunctiva pink, EOMI, PERRLA Ear exam: PRESENT: normal external ear exam Mouth exam: PRESENT: moist Neck exam: PRESENT: full ROM. ABSENT: JVD, lymphadenopathy, tenderness Respiratory exam: PRESENT: clear to auscultation joel Cardiovascular exam: PRESENT: RRR. ABSENT: diastolic murmur, systolic murmur GI/Abdominal exam: PRESENT: normal bowel sounds, soft. ABSENT: tenderness Extremities exam: PRESENT: +2 edema. ABSENT: full ROM Musculoskeletal exam: ABSENT: ambulatory Neurological exam: PRESENT: alert, awake, oriented to person, oriented to place , oriented to time, oriented to situation, CN II-XII grossly intact Psychiatric exam: PRESENT: appropriate affect, normal mood Skin exam: PRESENT: erythema Results Laboratory Results: 11/17/17 04:24 11/17/17 04:24 11/17/17 11/17/17 04:24 04:24 WBC 7.5 RBC 2.91 L Hgb 7.8 L Hct 24.9 L MCV 86 MCH 26.9 L MCHC 31.5 L RDW 18.5 H Plt Count 273 Sodium 137.9 Potassium 4.2 Chloride 92 L Carbon Dioxide 41 H* Anion Gap 5 BUN 27 H Creatinine 0.77 Est GFR ( Amer) > 60 Est GFR (Non-Af Amer) > 60 Glucose 158 H Calcium 9.3 Impressions: Chest X-Ray 11/10/17 00:00 IMPRESSION: Stable, chronic changes. Chest CT 11/11/17 00:00 IMPRESSION: Chronic interstitial changes and bronchiectasis accounting for the plain film appearance in the left lung. No evidence of empyema. Venous Doppler Study 11/13/17 00:00 IMPRESSION: NO EVIDENCE DVT OR SVT IN EITHER LEG. Assessment & Plan - Diagnosis (1) Acute on chronic diastolic (congestive) heart failure Is this a current diagnosis for this admission?: Yes Plan: Continue current management (2) Acute and chronic respiratory failure with hypercapnia Is this a current diagnosis for this admission?: Yes Plan: As per Dr Sanders (3) Morbid obesity with BMI of 45.0-49.9, adult Is this a current diagnosis for this admission?: Yes Plan: Contributing to hypoventilatory syndrome (4) History of poliomyelitis Is this a current diagnosis for this admission?: Yes Plan: Contributing to restrictive component (5) Troponin level elevated Is this a current diagnosis for this admission?: Yes Plan: Likely due to myocardial demand ischemia (6) Anemia Qualifiers: Anemia type: unspecified type Qualified Code(s): D64.9 - Anemia, unspecified Is this a current diagnosis for this admission?: Yes Plan: Stable (7) Obesity hypoventilation syndrome Is this a current diagnosis for this admission?: Yes Plan: Long-standing problem. Patient bed bound (8) Sleep apnea Qualifiers: Sleep apnea type: obstructive Qualified Code(s): G47.33 - Obstructive sleep apnea (adult) (pediatric) Is this a current diagnosis for this admission?: Yes Plan: Contributor to pulmonary hypertension (9) Diabetes mellitus type 2 in obese Is this a current diagnosis for this admission?: Yes Plan: Continue current management (10) Hypothyroid Qualifiers: Hypothyroidism type: unspecified Qualified Code(s): E03.9 - Hypothyroidism , unspecified Is this a current diagnosis for this admission?: Yes Plan: Continue outpatient regimen (11) Hyperkalemia Is this a current diagnosis for this admission?: Yes Plan: Resolved (12) Atrial fibrillation Qualifiers: Atrial fibrillation type: unspecified Qualified Code(s): I48.91 - Unspecified atrial fibrillation Is this a current diagnosis for this admission?: Yes Plan: Continue low dose Toprol XL (13) PNA (pneumonia) Qualifiers: Laterality: left Lung location: lower lobe of lung Is this a current diagnosis for this admission?: Yes Plan: Continue current treatment - Time Time Spent with patient: Less than 15 minutes Medications reviewed and adjusted accordingly: Yes Anticipated discharge: Home with Homehealth Within: within 24 hours - Inpatient Certification Based on my medical assessment, after consideration of the patient's comorbidities, presenting symptoms, or acuity I expect that the services needed warrant INPATIENT care.: Yes I certify that my determination is in accordance with my understanding of Medicare's requirements for reasonable and necessary INPATIENT services [42 CFR 412.3e].: Yes Medical Necessity: Need Close Monitoring Due to Risk of Patient Decompensation, Need for IV Antibiotics
[2017-11-17] MEDS: ATORVASTATIN CALCIUM 20 MG TABLET PO SCH (22:50)
[2017-11-17] MEDS: MONTELUKAST SODIUM 10 MG TABLET PO SCH (22:50)
[2017-11-18] MEDS: ALBUTEROL SULFATE 0.083% NEB 2.5 MG/3 ML AMPUL NEB PRN (02:06)
[2017-11-18] MEDS: ACETYLCYSTEINE 20% SOLN 800 MG/4 ML VIAL.NEB NEB SCH ×3 (02:06→14:08)
[2017-11-18] MEDS: PIPERACILLIN SODIUM/TAZOBACTAM 3.375 GM in NORMAL SALINE 100 ML IV SCH ×3 (05:41→18:48)
[2017-11-18] MEDS: LANSOPRAZOLE 30 MG TAB.RAP.DR PO SCH (05:41)
[2017-11-18] MEDS: HEPARIN SOD (PORCINE) 5,000 UNIT/ML 1 ML SYRINGE SUBCUT SCH ×2 (05:42→14:00)
[2017-11-18] MEDS: IPRATROPIUM/ALBUTEROL 0.5-2.5 MG/3 ML AMPUL NEB SCH ×2 (08:55→14:08)
[2017-11-18] MEDS: LIOTHYRONINE SODIUM 5 MCG TABLET PO SCH (10:58)
[2017-11-18] MEDS: MAGNESIUM OXIDE 400 MG TABLET PO SCH ×3 (10:58→18:48)
[2017-11-18] MEDS: MIDODRINE HCL 5 MG TABLET PO SCH ×3 (10:58→18:48)
[2017-11-18] MEDS: CALCIUM CARBONATE 250 MG/VITAMIN D3 125 UNIT TABLET PO SCH (10:58)
[2017-11-18] MEDS: LORATADINE 10 MG TABLET PO SCH (10:59)
[2017-11-18] MEDS: METOPROLOL SUCCINATE 25 MG TAB.SR.24H PO SCH (10:59)
[2017-11-18] MEDS: ASPIRIN 81 MG TABLET, ENT COATED PO SCH (10:59)
[2017-11-18] MEDS: FUROSEMIDE 40 MG TABLET PO SCH ×2 (10:59→18:48)
[2017-11-18] MEDS: DOCUSATE SODIUM 100 MG CAPSULE PO SCH (11:00)
[2017-11-18] MEDS: CLOPIDOGREL BISULFATE 75 MG TABLET PO SCH (11:00)
[2017-11-18] MEDS: BUDESONIDE/FORMOTEROL 160-4.5 MCG 60 PUFF/6 GM MDI IH SCH ×2 (11:00→18:48)
[2017-11-18] MEDS: POLYETHYLENE GLYCOL 3350 POWDER 17 GM/1 PACKET PO SCH (11:01)
[2017-11-18] MEDS: INSULIN LISPRO 100 UNIT/ML 3 ML VIAL SUBCUT PRN (11:06)
[2017-11-18] MEDS ORDERED: NORMAL SALINE 250 ML IV PRN ×2 (11:53)
[2017-11-18 12:29] LABS: HEMATOCRIT 24.3 % (36.0-47.0); MEAN CORPUSCULAR HEMOGLOBIN 27.2 pg (27.0-33.4); MEAN CORPUSCULAR HGB CONC 31.8 g/dL (32.0-36.0); MEAN CORPUSCULAR VOLUME 86 fl (80-97); PLATELET COUNT 312 10^3/uL (150-450); RED BLOOD COUNT 2.85 10^6/uL (3.72-5.28); RED CELL DISTRIBUTION WIDTH 18.4 % (11.5-14.0); WHITE BLOOD COUNT 7.5 10^3/uL (4.0-10.5)
[2017-11-18 12:31] LABS: HEMOGLOBIN 7.7 g/dL (12.0-15.5)
[2017-11-18] MEDS: ACETAMINOPHEN 325 MG TABLET PO PRN (13:03)
[2017-11-18] MEDS: INSULIN GLARGINE,HUM.REC.ANLOG 300 UNIT/3 ML INSULN.PEN SUBCUT SCH (13:04)
--- NOTE | 2017-11-18 15:39 | PDOC PROGRESS REPORT ---
Subjective Progress Note for:: 11/18/17 Subjective:: Continues to be more alert Reason For Visit: ACUTE ON CHRONIC HYPOXIC/HYPERDAPNIC RESPIRATORY Physical Exam Vital Signs: Temp Pulse Resp BP Pulse Ox 98.3 F 75 18 131/39 H 100 11/18/17 15:16 11/18/17 15:16 11/18/17 15:16 11/18/17 15:16 11/18/17 15:16 Intake & Output 11/17/17 11/18/17 11/19/17 06:59 06:59 06:59 Intake Total 1568 1356 237 Output Total 850 Balance 718 1356 237 Weight 118 kg 116.7 kg General appearance: PRESENT: no acute distress, cooperative, disheveled, morbidly obese Head exam: PRESENT: atraumatic, normocephalic Eye exam: PRESENT: conjunctiva pale, EOMI. ABSENT: nystagmus, periorbital swelling, scleral icterus Mouth exam: PRESENT: dry mucosa, neck supple, tongue midline Neck exam: ABSENT: carotid bruit, JVD, lymphadenopathy, thyromegaly, tracheal deviation, tracheostomy Respiratory exam: PRESENT: decreased breath sounds, prolonged expiratory phas, rhonchi, symmetrical, unlabored. ABSENT: stridor, tachypnea Cardiovascular exam: PRESENT: irregular rhythm Pulses: PRESENT: normal radial pulses GI/Abdominal exam: PRESENT: diminished bowel sounds, soft Extremities exam: PRESENT: +1 edema. ABSENT: calf tenderness, clubbing, joint swelling Musculoskeletal exam: ABSENT: deformity, dislocation Neurological exam: PRESENT: alert, awake Psychiatric exam: PRESENT: normal mood Skin exam: PRESENT: dry, warm Results Laboratory Results: 11/18/17 12:17 11/17/17 04:24 11/18/17 11/18/17 12:17 12:17 WBC 7.5 RBC 2.85 L Hgb 7.7 L Hct 24.3 L MCV 86 MCH 27.2 MCHC 31.8 L RDW 18.4 H Plt Count 312 Blood Type O POSITIVE Antibody Screen NEGATIVE Impressions: Chest X-Ray 11/10/17 00:00 IMPRESSION: Stable, chronic changes. Chest CT 11/11/17 00:00 IMPRESSION: Chronic interstitial changes and bronchiectasis accounting for the plain film appearance in the left lung. No evidence of empyema. Venous Doppler Study 11/13/17 00:00 IMPRESSION: NO EVIDENCE DVT OR SVT IN EITHER LEG. Assessment & Plan - Diagnosis (1) Atrial fibrillation Qualifiers: Atrial fibrillation type: unspecified Qualified Code(s): I48.91 - Unspecified atrial fibrillation Is this a current diagnosis for this admission?: Yes Plan: stable (2) Morbid obesity with BMI of 45.0-49.9, adult Is this a current diagnosis for this admission?: Yes (3) Acute and chronic respiratory failure with hypercapnia Is this a current diagnosis for this admission?: Yes Plan: DAY[place]+O-H syndrome+COPD + (4) CO2 narcosis Is this a current diagnosis for this admission?: Yes (5) History of poliomyelitis Is this a current diagnosis for this admission?: Yes (6) Obesity hypoventilation syndrome Is this a current diagnosis for this admission?: Yes Plan: will always need NIPPV (7) Sleep apnea Qualifiers: Sleep apnea type: obstructive Qualified Code(s): G47.33 - Obstructive sleep apnea (adult) (pediatric) Is this a current diagnosis for this admission?: Yes Plan: Needs chronic NIPPV
[2017-11-18 16:48] LABS: HEMATOCRIT 27.9 % (36.0-47.0); MEAN CORPUSCULAR HEMOGLOBIN 27.6 pg (27.0-33.4); MEAN CORPUSCULAR HGB CONC 32.3 g/dL (32.0-36.0); MEAN CORPUSCULAR VOLUME 85 fl (80-97); PLATELET COUNT 325 10^3/uL (150-450); RED BLOOD COUNT 3.27 10^6/uL (3.72-5.28); RED CELL DISTRIBUTION WIDTH 17.9 % (11.5-14.0); WHITE BLOOD COUNT 8.2 10^3/uL (4.0-10.5)
[2017-11-18 16:52] VITALS: BP 136/46
--- NOTE | 2017-11-20 06:17 | PDOC DISCHARGE SUMMARY ---
General - Admit/Disc Date/PCP Admission Date/Primary Care Provider: 11/06/17 16:08 Discharge Date: 11/18/17 - Discharge Diagnosis (1) Acute on chronic diastolic (congestive) heart failure Is this a current diagnosis for this admission?: Yes (2) Acute and chronic respiratory failure with hypercapnia Is this a current diagnosis for this admission?: Yes (3) Morbid obesity with BMI of 45.0-49.9, adult Is this a current diagnosis for this admission?: Yes (4) History of poliomyelitis Is this a current diagnosis for this admission?: Yes (5) Troponin level elevated Is this a current diagnosis for this admission?: Yes (6) Anemia Is this a current diagnosis for this admission?: Yes (7) Obesity hypoventilation syndrome Is this a current diagnosis for this admission?: Yes (8) Sleep apnea Is this a current diagnosis for this admission?: Yes (9) Diabetes mellitus type 2 in obese Is this a current diagnosis for this admission?: Yes (10) Hypothyroid Is this a current diagnosis for this admission?: Yes (11) Hyperkalemia Is this a current diagnosis for this admission?: Yes (12) Atrial fibrillation Is this a current diagnosis for this admission?: Yes (13) PNA (pneumonia) Is this a current diagnosis for this admission?: Yes (14) History of poliomyelitis Is this a current diagnosis for this admission?: Yes (15) Anemia Is this a current diagnosis for this admission?: Yes (16) Pulmonary hypertension Is this a current diagnosis for this admission?: Yes - Additional Information Resuscitation Status: Do Not Resuscitate Discharge Diet: Cardiac, Diabetic Discharge Activity: Activity As Tolerated, Balance Activity w/Rest Prescriptions: Furosemide [Lasix 40 mg Tablet] 40 mg PO BID #60 tablet Magnesium Oxide [Mag-Ox 400 mg Tablet] 800 mg PO TID #90 tablet Metoprolol Succinate [Toprol Xl 25 mg Tab.sr] 25 mg PO DAILY #30 tab.sr.24h Midodrine HCl [Proamatine 5 mg Tablet] 5 mg PO TID #90 tablet Home Medications: Albuterol Sulfate [Albuterol Sulfate 2.5mg/3 mL] 1 vial IH Q4 PRN 09/23/17 Aspirin [Ecotrin 81 mg EC Tablet] 81 mg PO DAILY 09/23/17 Atorvastatin Calcium [Lipitor 20 mg Tablet] 20 mg PO QHS 09/23/17 Budesonide/Formoterol Fumarate [Symbicort 160-4.5 Mcg Inhaler] 2 puff IH BID 02/02 Calcium Carbonate/Vitamin D3 [Calcium 500-Vit D3 200 Caplet] 1 tab PO DAILY 02/02 Clopidogrel Bisulfate [Plavix 75 mg Tablet] 75 mg PO DAILY 09/23/17 Fexofenadine HCl [Rin] 180 mg PO DAILY 09/23/17 Liothyronine Sodium [Cytomel] 10 mcg PO NOON 09/23/17 Montelukast Sodium [Singulair 10 mg Tablet] 10 mg PO QHS 09/23/17 Omeprazole 40 mg PO DAILY 09/23/17 Potassium Chloride [Klor-Con 10 Meq Tablet.sa] 20 meq PO DAILY 09/23/17 Metformin HCl [Glucophage 500 mg Tablet] 500 mg PO DAILY 10/17/17 Acetylcysteine [Mucomist 20% Soln 800 mg/4 mL] 200 mg NEB RTQ6 11/06/17 Nitroglycerin [Nitrostat 0.4 mg (1/150 Gr) Tabs 25/Bottle] 1 tab SL Q5MP PRN Furosemide [Lasix 40 mg Tablet] 40 mg PO BID #60 tablet 11/18/17 Magnesium Oxide [Mag-Ox 400 mg Tablet] 800 mg PO TID #90 tablet 11/18/17 Metoprolol Succinate [Toprol Xl 25 mg Tab.sr] 25 mg PO DAILY #30 tab.sr.24h 11/02 Midodrine HCl [Proamatine 5 mg Tablet] 5 mg PO TID #90 tablet 11/18/17 History of Present Illness History of Present Illness: ALBERTO DIAL is a 72 year old female who is well-known to our service due to recent hospitalization under similar circumstances. According to patient's sister patient had been having shortness of breath which had been getting progressively worse over 4 days. Patient was discharged on AVAPS and she had been using it except for the previous 4 days because was not able to breathe. Accordingly patient did not tolerate the mask and she was desaturating. Dr. Sanders was contacted by [employer]. The company entry level account representative went to patient's house and managed the machine settings while Dr Sanders was on the phone. Despite adjustments, patient continued to be short of breath. Sister called EMS and on arrival pulse ox was in 68% and BP was in the 60s. ABG obtained in ED showed a PCO2 of 135. Patient is DO NOT RESUSCITATE and did not wished to be intubated. Sister stated that there is no history of fever, chills or cough. She also stated that patient had been having to sit on the sofa because of shortness of breath. Due to her presentation the hospitalist service was consulted and prompted to admit Hospital Course Hospital Course: Patient was treated with intravenous diuresis since as is usually the case presents with acute on chronic diastolic blood pressure with consequent increase in pulmonary pressure which worsens her respiratory status and starts retaining CO2. She does have a right-sided component and her blood pressures would drop. She was placed on Midodrine. Following this intervention we continued intravenous diuresis and she was transitioned to oral. Patient was treated with intravenous antibiotic for the treatment of pneumonia. She experienced a short bout of atrial fibrillation and patient was placed on Toprol XL. We opted not to proceed with further anticoagulation due to risk of bleeding. Dr. Sanders assisted in management of AVAPS. On the day of discharge she was transfused 1 unit of packed red blood cell. Since patient had achieved maximum benefit of hospitalization stay prompted to discharge under stable condition. As usual anticipate similar presentation due to comorbidities Physical Exam Vital Signs: Temp Pulse Resp BP Pulse Ox 98.6 F 71 22 H 139/51 H 99 11/17/17 23:13 11/18/17 02:39 11/18/17 02:39 11/17/17 23:13 11/18/17 02:39 Intake & Output 11/16/17 11/17/17 11/18/17 06:59 06:59 06:59 Intake Total 1290 1568 1146 Output Total 2050 850 Balance -460 486 1552 Weight 117.7 kg 118 kg Results Laboratory Results: 11/17/17 04:24 11/17/17 04:24 Impressions: Chest X-Ray 11/10/17 00:00 IMPRESSION: Stable, chronic changes. Chest CT 11/11/17 00:00 IMPRESSION: Chronic interstitial changes and bronchiectasis accounting for the plain film appearance in the left lung. No evidence of empyema. Venous Doppler Study 11/13/17 00:00 IMPRESSION: NO EVIDENCE DVT OR SVT IN EITHER LEG. Qualifiers - * PATEINT BEING DISCHARGED WITH ANY OF THE FOLLOWING DIAGNOSIS?: No Plan Discharge Plan: Home with home health Time Spent: Greater than 30 Minutes
== END 2017-11-18 19:20 | disposition home health service (06) | DRG 291 ==
LOC: ER 14:02 → EH 16:08 → 3W 18:30
PROVIDERS: ADMIT Emergency Medicine; ATTEND Emergency Medicine
PROC: 5A09557 Assistance with Respiratory Ventilation, Greater than 96 Consecutive Hours, Continuous Positive Airway Pressure (ICD-10-PCS; 2017-11-06)
PROC: 30233N1 Transfusion of Nonautologous Red Blood Cells into Peripheral Vein, Percutaneous Approach (ICD-10-PCS; principal; 2017-11-18)
DX: I11.0 Hypertensive heart disease with heart failure (principal); J96.21 Acute and chronic respiratory failure with hypoxia; J18.9 Pneumonia, unspecified organism; J96.22 Acute and chronic respiratory failure with hypercapnia; Z68.42 Body mass index [BMI] 45.0-49.9, adult; J44.0 Chronic obstructive pulmonary disease with (acute) lower respiratory infection; E66.2 Morbid (severe) obesity with alveolar hypoventilation; I50.33 Acute on chronic diastolic (congestive) heart failure; I27.20 Pulmonary hypertension, unspecified; I25.10 Atherosclerotic heart disease of native coronary artery without angina pectoris; I25.2 Old myocardial infarction; Z95.5 Presence of coronary angioplasty implant and graft; E78.5 Hyperlipidemia, unspecified; E11.9 Type 2 diabetes mellitus without complications; E03.9 Hypothyroidism, unspecified; Z66 Do not resuscitate; M19.90 Unspecified osteoarthritis, unspecified site; F32.9 Major depressive disorder, single episode, unspecified; D64.9 Anemia, unspecified; J44.9 Chronic obstructive pulmonary disease, unspecified; I48.0 Paroxysmal atrial fibrillation; R74.8 Abnormal levels of other serum enzymes; E87.5 Hyperkalemia; Z90.49 Acquired absence of other specified parts of digestive tract; Z82.49 Family history of ischemic heart disease and other diseases of the circulatory system; Z83.3 Family history of diabetes mellitus; Z79.82 Long term (current) use of aspirin; Z87.891 Personal history of nicotine dependence; Z90.710 Acquired absence of both cervix and uterus; Z86.12 Personal history of poliomyelitis; Z79.51 Long term (current) use of inhaled steroids; Z79.52 Long term (current) use of systemic steroids; Z79.899 Other long term (current) drug therapy; Z88.6 Allergy status to analgesic agent
CPT/HCPCS: 36415; 36430; 36600; 71045; 71046; 71250; 80048; 80053; 80069; 82550; 82553; 82803; 82962; 83605; 83735; 83880; 84484; 85025; 85027; 86850; 86900; 86901; 86920; 87040; 93005; 93010; 93970; 94640; 94660; 96361; 96374; 96375; 99291; 99292; G8978-GP; G8979-GP; G8996-GN; G8997-GN; G8998-GN; J0610; J1644; J1815; J1940; J1956; J2060; J2543; J2930; J3475; J3490; J7030; J7620; P9016

== ENCOUNTER → 2017-12-03 | Outpatient (CLI) | payer MEDICARE, OTHER ==
--- NOTE | 2017-12-03 15:17 | RADIOLOGY REPORT (SQ) ---
EXAM DESCRIPTION: CHEST 2 VIEWS COMPLETED DATE/TIME: 12/03/2017 2:08 pm REASON FOR STUDY: PNEUMONIA (J18.9) COMPARISON: 11/10/2017 EXAM PARAMETERS: NUMBER OF VIEWS: two views TECHNIQUE: Digital Frontal and Lateral radiographic views of the chest acquired. RADIATION DOSE: NA LIMITATIONS: none FINDINGS: LUNGS AND PLEURA: No infiltrate or effusion is present. MEDIASTINUM AND HILAR STRUCTURES: No masses or contour abnormalities. HEART AND VASCULAR STRUCTURES: Heart size is normal. There is mild pulmonary vascular prominence. BONES: Scoliosis. HARDWARE: None in the chest. OTHER: No other significant finding. IMPRESSION: Scoliosis. Pulmonary vascular prominence. No failure. No pneumonia is appreciated. TECHNICAL DOCUMENTATION: JOB ID: [id number] [employer]- All Rights Reserved Reading location - IP/workstation name: [email or web address]
== END ==
LOC: RAD 13:41
PROVIDERS: ATTEND Family Medicine
DX: J18.9 Pneumonia, unspecified organism (principal)
CPT/HCPCS: 71046

== ENCOUNTER 2018-04-29 15:09 | Inpatient (IN) | payer MEDICARE, OTHER ==
[2018-04-29 16:07] LABS: VENOUS BLOOD BASE EXCESS 15.8 mmol/L; VENOUS BLOOD HCO3 44.6 mmol/L (20-32); VENOUS BLOOD PH 7.33 (7.30-7.42)
[2018-04-29 16:09] LABS: ABSOLUTE BASOPHILS # (AUTO) 0.1 10^3/uL (0.0-0.2); ABSOLUTE EOSINOPHILS # (AUTO) 0.2 10^3/uL (0.0-0.6); ABSOLUTE MONOCYTES (AUTO) 0.6 10^3/uL (0.1-1.4); ABSOLUTE NEUT (AUTO) 10.6 10^3/uL (1.7-8.2); BASOPHILS % (AUTO) 0.7 % (0-2); HEMOGLOBIN 9.9 g/dL (12.0-15.5); LYMPHOCYTES % (AUTO) 7.6 % (13-45); MEAN CORPUSCULAR HEMOGLOBIN 27.6 pg (27.0-33.4); MEAN CORPUSCULAR HGB CONC 31.8 g/dL (32.0-36.0); MEAN CORPUSCULAR VOLUME 87 fl (80-97); MONOCYTES % (AUTO) 5.1 % (3-13); PLATELET COUNT 332 10^3/uL (150-450); RED BLOOD COUNT 3.57 10^6/uL (3.72-5.28); RED CELL DISTRIBUTION WIDTH 16.7 % (11.5-14.0); SEGMENTED NEUTROPHILS % (AUTO) 84.6 % (42-78); TOTAL CELLS COUNTED % (AUTO) 100 %; WHITE BLOOD COUNT 12.5 10^3/uL (4.0-10.5)
[2018-04-29 16:15] LABS: VENOUS BLOOD PCO2 85.9 mmHg (35-63)
[2018-04-29 16:24] LABS: ALANINE AMINOTRANSFERASE 29 U/L (9-52); ALBUMIN 3.6 g/dL (3.5-5.0); ALKALINE PHOSPHATASE 72 U/L (38-126); ASPARTATE AMINO TRANSFERASE 23 U/L (14-36); BILIRUBIN,DIRECT 0.4 mg/dL (0.0-0.4); BILIRUBIN,TOTAL 0.4 mg/dL (0.2-1.3); BLOOD UREA NITROGEN 24 mg/dL (7-20); CALCIUM 8.5 mg/dL (8.4-10.2); CHLORIDE 94 mmol/L (98-107); GLUCOSE 68 mg/dL (75-110); POTASSIUM 3.9 mmol/L (3.6-5.0); TOTAL PROTEIN 6.5 g/dL (6.3-8.2)
[2018-04-29] MEDS ORDERED: METHYLPREDNISOLONE INJ 125 MG/2 ML SDV IV ONE (16:27)
[2018-04-29] MEDS ORDERED: IPRATROPIUM/ALBUTEROL 0.5-2.5 MG/3 ML AMPUL NEB ONE (16:34)
[2018-04-29 16:36] LABS: ANION GAP 7 (5-19)
--- NOTE | 2018-04-29 16:36 | RADIOLOGY REPORT (SQ) ---
EXAM DESCRIPTION: CHEST SINGLE VIEW COMPLETED DATE/TIME: 04/29/2018 4:25 pm REASON FOR STUDY: Difficulty breathing, Hx COPD, CHF COMPARISON: 12/03/2017 EXAM PARAMETERS: NUMBER OF VIEWS: One view. TECHNIQUE: Single frontal radiographic view of the chest acquired. RADIATION DOSE: NA LIMITATIONS: None. FINDINGS: LUNGS AND PLEURA: Probable left effusion. Right lung is clear. MEDIASTINUM AND HILAR STRUCTURES: No masses. Contour normal. HEART AND VASCULAR STRUCTURES: Heart enlarged. Vascular congestion. BONES: Chronic scoliosis. HARDWARE: None in the chest. OTHER: No other significant finding. IMPRESSION: Vascular congestion. Probable left effusion. TECHNICAL DOCUMENTATION: JOB ID: [id number] [employer]- All Rights Reserved Reading location - IP/workstation name: [email or web address]
[2018-04-29 16:41] LABS: CREATINE KINASE MB 2.19 ng/mL (<4.55); TROPONIN I 0.025 ng/mL
[2018-04-29 16:54] LABS: CARBON DIOXIDE 42 mmol/L (22-30)
[2018-04-29 17:55] LABS: APPEARANCE,URINE CLEAR; BILIRUBIN,URINE NEGATIVE (NEGATIVE); COLOR,URINE YELLOW; GLUCOSE, URINE NEGATIVE (NEGATIVE); KETONES,URINE NEGATIVE (NEGATIVE); LEUKOCYTE ESTERASE,URINE NEGATIVE (NEGATIVE); NITRITE,URINE NEGATIVE (NEGATIVE); PROTEIN,URINE NEGATIVE (NEGATIVE); URINE SPECIFIC GRAVITY 1.015; UROBILINOGEN,URINE NEGATIVE mg/dL (<2.0)
--- NOTE | 2018-04-29 18:03 | ER Document Report ---
ED Respiratory Problem - General Chief Complaint: Breathing Difficulty Stated Complaint: SHORTNESS OF BREATH Time Seen by Provider: 04/29/18 15:36 Notes: Patient is here for difficulty breathing. She says she has asthma and COPD and is on home oxygen 2 L all the time, constantly. She is recently had some nasal and sinus congestion that she thinks is going into her chest causing her to have more congestion and difficulty breathing. She is on home nebulizers of a newly introduced medication because albuterol has been giving her chest pains. She called her sister whose looked up the nebulizer medication and its Xopenex. Patient says that she had 4 of these nebulizer treatments earlier today and one on the way here. She says that when her oxygen level goes down like that, it causes her jaw and chest to hurt. She has had a cough and chest congestion producing phlegm. Not sure if she has had a fever. Reviewing patient's past visits, she has been here and admitted for respiratory insufficiency and CO2 retention several times over the past 6 or 8 months. TRAVEL OUTSIDE OF THE [place] IN LAST 30 DAYS: No - Related Data Allergies/Adverse Reactions: hydromorphone HCl [From Dilaudid] Allergy (Severe, Verified 04/29/18 15:24) Respiratory arrest codeine [Codeine] Allergy (Intermediate, Verified 04/29/18 15:24) Hallucinations Past Medical History - Social History Smoking Status: Former Smoker - Stopped in 1977 Chew tobacco use (# tins/day): No Frequency of alcohol use: None Drug Abuse: None Family History: Reviewed & Not Pertinent, DM, Hyperlipidemia, Hypertension Patient has suicidal ideation: No Patient has homicidal ideation: No - Past Medical History Cardiac Medical History: Reports: Hx Congestive Heart Failure - Diastolic, Hx Coronary Artery Disease, Hx Heart Attack - cardiac stents x 2, Hx Hypercholesterolemia, Hx Hypertension, Hx Heart Murmur - aortic stenosis Pulmonary Medical History: Reports: Hx Asthma, Hx Bronchitis, Hx COPD, Hx Sleep Apnea - Bipap Endocrine Medical History: Reports: Hx Diabetes Mellitus Type 2, Hx Hypothyroidism GI Medical History: Reports: Hx Gastroesophageal Reflux Disease, Hx Ulcer Musculoskeletal Medical History: Reports Hx Arthritis - generalized, Reports Other - Polio at 4 years of age leaving her wheelchair confined. Skin Medical History: Reports Hx Cellulitis Psychiatric Medical History: Reports: Hx Depression Past Surgical History: Reports: Hx Appendectomy, Hx Colostomy - then reversed, Hx Hysterectomy, Hx Neurologic Surgery - spinal fusion, Hx Orthopedic Surgery - carpal tunnel, polio surgery to left leg - Immunizations Immunizations up to date: Yes Hx Diphtheria, Pertussis, Tetanus Vaccination: Yes Hx Pneumococcal Vaccination: 08/18/14 Review of Systems - Review of Systems Notes: REVIEW OF SYSTEMS: CONSTITUTIONAL : Denies fever. EENT: Denies eye, ear, nose or mouth or throat pain or other symptoms. CARDIOVASCULAR: Has chest pain when her oxygen level goes low or when she is getting nebulizer treatments with albuterol. She also gets jaw pain. RESPIRATORY: Patient has had cough and chest congestion as well as sinus congestion. GASTROINTESTINAL: Denies abdominal pain or nausea, vomiting, or diarrhea. GENITOURINARY: Denies difficulty or painful urinating, urinary frequency, blood in urine. MUSCULOSKELETAL: Denies back or neck pain. Denies joint pain or swelling. Patient has withered lower extremities secondary to her prior infection with polio. She is wheelchair confined. SKIN: Denies rash or skin lesions. NEUROLOGICAL: Denies LOC or altered mental status. Denies headache. Denies sensory loss or motor deficits. ALL OTHER SYSTEMS REVIEWED AND NEGATIVE. Physical Exam - Vital signs Vitals: Temp Pulse Resp BP Pulse Ox 97.4 F 75 22 H 152/48 H 93 04/29/18 15:24 04/29/18 15:24 04/29/18 15:24 04/29/18 15:24 04/29/18 15:24 Interpretation: Normal - Notes Notes: PHYSICAL EXAMINATION: GENERAL: Well-appearing, in no acute distress. O2 sat is 93% on 2 L. HEAD: Atraumatic, normocephalic. EYES: Pupils equal round and reactive to light, extraocular movements intact. ENT: oropharynx clear without exudates. Moist mucous membranes. NECK: Normal range of motion, supple. LUNGS: Breath sounds with fine expiratory wheezes, the same on either side. HEART: Regular rate and rhythm without murmurs. ABDOMEN: Soft, nontender. No guarding or rebound. Large lower midline abdominal wall hernia that is not firm or hard or tender. BACK: No tenderness throughout entire back. EXTREMITIES: Normal range of motion without pain. Withered left leg. Weakness of both legs and degenerative changes secondary to history of polio. NEUROLOGICAL: Normal speech. Normal sensory, motor, and reflex exams except for lower extremities which are with there is an essentially nonfunctioning.. Awake, alert, and oriented x3. PSYCH: Normal mood, normal affect. SKIN: Warm, dry, no rashes. Course - Re-evaluation Re-evalutation: 04/29/18 19:15 Patient was put on BiPAP. Given Solu-Medrol 125 mg IV. Nausea treatment. Discussed with hospitalist who will admit patient. - Vital Signs Vital signs: Temp Pulse Resp BP Pulse Ox 97.4 F 75 21 H 121/96 H 89 L 04/29/18 15:24 04/29/18 15:24 04/29/18 18:02 04/29/18 18:02 04/29/18 18:02 - Laboratory Result Diagrams: 04/29/18 15:53 04/29/18 15:53 Laboratory results interpreted by me: 04/29/18 04/29/18 04/29/18 15:53 15:53 15:53 WBC 12.5 H RBC 3.57 L Hgb 9.9 L Hct 31.0 L MCHC 31.8 L RDW 16.7 H Seg Neutrophils % 84.6 H Lymphocytes % 7.6 L Absolute Neutrophils 10.6 H VBG pCO2 VBG HCO3 Chloride 94 L Carbon Dioxide 42 H* BUN 24 H Glucose 68 L NT-Pro-B Natriuret Pep 2300 H 04/29/18 15:53 WBC RBC Hgb Hct MCHC RDW Seg Neutrophils % Lymphocytes % Absolute Neutrophils VBG pCO2 85.9 H* VBG HCO3 44.6 H Chloride Carbon Dioxide BUN Glucose NT-Pro-B Natriuret Pep - Diagnostic Test Radiology results interpreted by me: 04/29/18 18:58 Chest x-ray shows small left pleural effusion. Scoliosis limits visualization of the lung blunt. Radiology reads vascular congestion. - EKG Interpretation by Ct EKG shows normal: Sinus rhythm Blanco/QRS: RBBB, LAHB/LAFB Discharge - Discharge Clinical Impression: Respiratory insufficiency, Pleural effusion, left, Hypercapnia Condition: Fair Disposition: ADMITTED INPATIENT Admitting Provider: Hospitalist Unit Admitted: Medical Floor
--- NOTE | 2018-04-29 18:29 | EKG REPORT ---
SEVERITY:- ABNORMAL ECG - SINUS RHYTHM RBBB AND LAFB PROBABLE LVH WITH SECONDARY REPOL ABNRM : Confirmed by: Odilon Beckwith 29-Apr-2018 18:29:17
[2018-04-29] MEDS ORDERED: ACETAMINOPHEN 325 MG TABLET PO PRN (18:48)
[2018-04-29] MEDS ORDERED: PROMETHAZINE HCL 25 MG TABLET PO PRN (18:48)
[2018-04-29] MEDS ORDERED: DEXTROSE 40% GEL 15 GM TUBE PO PRN ×2 (19:02)
[2018-04-29] MEDS ORDERED: DEXTROSE 50%-WATER 25 GM/50 ML DISP.SYRIN IV PRN ×2 (19:02)
[2018-04-29] MEDS ORDERED: GLUCAGON,HUMAN RECOMB 1 MG INJ IM PRN (19:02)
--- NOTE | 2018-04-29 19:16 | PDOC H&P ---
History of Present Illness History of Present Illness: ALBERTO DIAL is a 73 year old female patient with multiple comorbidities including coronary artery disease status post stent placement twice, diastolic congestive heart failure, hyperlipidemia, hypertension, COPD, type 2 diabetes mellitus, hypothyroidism, morbid obesity and history of polio and wheelchair-bound, presents with chief complaint of shortness of breath and difficulty breathing. At baseline patient is oxygen dependent 24 /7 and she has been also using BiPAP. Patient reports this despite using her regular nebulizer her shortness of breath gets worse. She is also dry hacking cough. No fever, chills, chest pain, palpitation, diaphoresis, nausea, vomiting, abdominal pain or change in bowel habits. Past Medical History Cardiac Medical History: Reports: Congestive Heart Failure - Diastolic, Coronary Artery Disease, Myocardial Infarction - cardiac stents x 2, Hyperlipidema, Hypertension, Heart Murmur - aortic stenosis Denies: DVT, Pulmonary Embolism Pulmonary Medical History: Reports: Asthma, Bronchitis, Chronic Obstructive Pulmonary Disease (COPD), Sleep Apnea - Bipap Denies: Pneumonia, Tuberculosis Neurological Medical History: Denies: Seizures Endocrine Medical History: Reports: Diabetes Mellitus Type 2, Hypothyroidism Denies: Diabetes Mellitus Type 1, Hyperthyroidism GI Medical History: Reports: Gastroesophageal Reflux Disease Denies: Cirrhosis, Hepatitis Musculoskeltal Medical History: Reports: Arthritis - generalized, Other - Polio at 4 years of age leaving her wheelchair confined. Psychiatric Medical History: Reports: Depression Hematology: Reports: Anemia Past Surgical History Past Surgical History: Reports: Appendectomy, Colostomy - then reversed, Hysterectomy, Orthopedic Surgery - carpal tunnel, polio surgery to left leg Denies: Pacemaker Social History Smoking Status: Former Smoker - Stopped in 1977 Frequency of Alcohol Use: None Hx Recreational Drug Use: No Drugs: None Hx Prescription Drug Abuse: No - Advance Directive Resuscitation Status: Do Not Resuscitate Family History Family History: Reviewed & Not Pertinent, DM, Hyperlipidemia, Hypertension Parental Family History Reviewed: Yes Children Family History Reviewed: Yes Sibling(s) Family History Reviewed.: Yes Medication/Allergy Home Medications: Albuterol Sulfate [Albuterol Sulfate 2.5mg/3 mL] 1 vial IH Q4 PRN 09/23/17 Aspirin [Ecotrin 81 mg EC Tablet] 81 mg PO DAILY 09/23/17 Atorvastatin Calcium [Lipitor 20 mg Tablet] 20 mg PO QHS 09/23/17 Budesonide/Formoterol Fumarate [Symbicort 160-4.5 Mcg Inhaler] 2 puff IH BID 02/02 Calcium Carbonate/Vitamin D3 [Calcium 500-Vit D3 200 Caplet] 1 tab PO DAILY 02/02 Clopidogrel Bisulfate [Plavix 75 mg Tablet] 75 mg PO DAILY 09/23/17 Fexofenadine HCl [Rin] 180 mg PO DAILY 09/23/17 Liothyronine Sodium [Cytomel] 10 mcg PO NOON 09/23/17 Montelukast Sodium [Singulair 10 mg Tablet] 10 mg PO QHS 09/23/17 Omeprazole 40 mg PO DAILY 09/23/17 Potassium Chloride [Klor-Con 10 Meq Capsule ER] 20 meq PO DAILY 09/23/17 Metformin HCl [Glucophage 500 mg Tablet] 500 mg PO DAILY 10/17/17 Acetylcysteine [Mucomist 20% Soln 800 mg/4 mL] 200 mg NEB RTQ6 11/06/17 Nitroglycerin [Nitrostat 0.4 mg (1/150 Gr) Tabs 25/Bottle] 1 tab SL Q5MP PRN Furosemide [Lasix 40 mg Tablet] 40 mg PO BID #60 tablet 11/18/17 Magnesium Oxide [Mag-Ox 400 mg Tablet] 800 mg PO TID #90 tablet 11/18/17 Metoprolol Succinate [Toprol Xl 25 mg Tab.sr] 25 mg PO DAILY #30 tab.sr.24h 11/02 Midodrine HCl [Proamatine 5 mg Tablet] 5 mg PO TID #90 tablet 11/18/17 Allergies/Adverse Reactions: hydromorphone HCl [From Dilaudid] Allergy (Severe, Verified 04/29/18 15:24) Respiratory arrest codeine [Codeine] Allergy (Intermediate, Verified 04/29/18 15:24) Hallucinations Review of Systems Constitutional: PRESENT: as per HPI Cardiovascular: PRESENT: as per HPI Respiratory: PRESENT: dyspnea Gastrointestinal: ABSENT: abdominal pain, constipation, diarrhea, hematemesis, hematochezia, nausea, vomiting Psychiatric: PRESENT: as per HPI Physical Exam Vital Signs: Temp Pulse Resp BP Pulse Ox 97.4 F 75 21 H 121/96 H 89 L 04/29/18 15:24 04/29/18 15:24 04/29/18 18:02 04/29/18 18:02 04/29/18 18:02 Intake & Output 04/28/18 04/29/18 04/30/18 06:59 06:59 06:59 Weight 145.15 kg General appearance: PRESENT: no acute distress Head exam: PRESENT: atraumatic Neck exam: ABSENT: carotid bruit, JVD, lymphadenopathy, thyromegaly Respiratory exam: PRESENT: crackles, decreased breath sounds, wheezes. ABSENT: rales, rhonchi GI/Abdominal exam: PRESENT: normal bowel sounds, soft. ABSENT: distended, guarding, mass, organolmegaly, rebound, tenderness Neurological exam: PRESENT: alert, awake, oriented to time, oriented to situation Results Laboratory Results: 04/29/18 15:53 04/29/18 15:53 04/29/18 04/29/18 04/29/18 15:53 15:53 15:53 WBC 12.5 H RBC 3.57 L Hgb 9.9 L Hct 31.0 L MCV 87 MCH 27.6 MCHC 31.8 L RDW 16.7 H Plt Count 332 Seg Neutrophils % 84.6 H Lymphocytes % 7.6 L Monocytes % 5.1 Eosinophils % 2.0 Basophils % 0.7 Absolute Neutrophils 10.6 H Absolute Lymphocytes 1.0 Absolute Monocytes 0.6 Absolute Eosinophils 0.2 Absolute Basophils 0.1 VBG pH 7.33 VBG pCO2 85.9 H* VBG HCO3 44.6 H VBG Base Excess 15.8 Sodium 143.0 Potassium 3.9 Chloride 94 L Carbon Dioxide 42 H* Anion Gap 7 BUN 24 H Creatinine 0.58 Est GFR ( Amer) > 60 Est GFR (Non-Af Amer) > 60 Glucose 68 L Calcium 8.5 Total Bilirubin 0.4 AST 23 ALT 29 Alkaline Phosphatase 72 Total Protein 6.5 Albumin 3.6 Urine Color Urine Appearance Urine pH Ur Specific Simms Urine Protein Urine Glucose (UA) Urine Ketones Urine Blood Urine Nitrite Ur Leukocyte Esterase Urine WBC (Auto) Urine RBC (Auto) 04/29/18 17:30 WBC RBC Hgb Hct MCV MCH MCHC RDW Plt Count Seg Neutrophils % Lymphocytes % Monocytes % Eosinophils % Basophils % Absolute Neutrophils Absolute Lymphocytes Absolute Monocytes Absolute Eosinophils Absolute Basophils VBG pH VBG pCO2 VBG HCO3 VBG Base Excess Sodium Potassium Chloride Carbon Dioxide Anion Gap BUN Creatinine Est GFR ( Amer) Est GFR (Non-Af Amer) Glucose Calcium Total Bilirubin AST ALT Alkaline Phosphatase Total Protein Albumin Urine Color YELLOW Urine Appearance CLEAR Urine pH 5.0 Ur Specific Simms 1.015 Urine Protein NEGATIVE Urine Glucose (UA) NEGATIVE Urine Ketones NEGATIVE Urine Blood NEGATIVE Urine Nitrite NEGATIVE Ur Leukocyte Esterase NEGATIVE Urine WBC (Auto) 0 Urine RBC (Auto) 1 04/29/18 15:53 CK-MB (CK-2) 2.19 Troponin I 0.025 NT-Pro-B Natriuret Pep 2300 H Impressions: Chest X-Ray 04/29/18 15:39 IMPRESSION: Vascular congestion. Probable left effusion. Assessment & Plan - Diagnosis (1) Acute and chronic respiratory failure with hypercapnia Is this a current diagnosis for this admission?: Yes Plan: Patient has been started on supplemental oxygen, and BiPAP (2) COPD exacerbation Is this a current diagnosis for this admission?: Yes Plan: Patient has been started on Solu-Medrol, DuoNeb, Spiriva and supplemental oxygen. (3) Hypothyroidism Qualifiers: Hypothyroidism type: acquired Qualified Code(s): E03.9 - Hypothyroidism, unspecified Is this a current diagnosis for this admission?: Yes Plan: Continue her home Synthroid (4) Type 2 diabetes mellitus Is this a current diagnosis for this admission?: Yes Plan: Continue her home metformin and put her on sliding scale. (5) Coronary artery disease Qualifiers: Coronary Disease-Associated Artery/Lesion type: sun'aq artery Is this a current diagnosis for this admission?: Yes Plan: This post stent placement 2. Currently patient does not have angina. And I will continue her home medication.
[2018-04-29] MEDS: METFORMIN HCL 500 MG TABLET PO SCH (20:50)
[2018-04-29] MEDS: TIOTROPIUM BROMIDE DPI 5 CAP/KIT (18 MCG/CAP) IH SCH (20:51)
[2018-04-29] MEDS: LEVALBUTEROL HCL NEB 1.25 MG/3 ML AMPUL NEB SCH (20:56)
[2018-04-29] MEDS: FAMOTIDINE 20 MG TABLET PO SCH (22:29)
[2018-04-29] MEDS: HEPARIN SOD (PORCINE) 5,000 UNIT/ML 1 ML SYRINGE SUBCUT SCH (22:30)
[2018-04-29] MEDS: METHYLPREDNISOLONE INJ 40 MG/1 ML SDV IV SCH (22:30)
[2018-04-29] MEDS: INSULIN LISPRO 100 UNIT/ML 3 ML VIAL SUBCUT PRN (22:59)
[2018-04-29] MEDS: HYDRALAZINE HCL INJ/PF 20 MG/1 ML SDV IV PRN (23:40)
[2018-04-30] MEDS: LEVALBUTEROL HCL NEB 1.25 MG/3 ML AMPUL NEB SCH ×7 (00:41→23:59)
[2018-04-30] MEDS: HEPARIN SOD (PORCINE) 5,000 UNIT/ML 1 ML SYRINGE SUBCUT SCH ×3 (05:32→22:31)
[2018-04-30] MEDS: METHYLPREDNISOLONE INJ 40 MG/1 ML SDV IV SCH ×3 (05:32→22:40)
[2018-04-30 05:46] LABS: ABSOLUTE LYMPHOCYTES (AUTO) 0.4 10^3/uL (0.5-4.7); ABSOLUTE MONOCYTES (AUTO) 0.1 10^3/uL (0.1-1.4); BASOPHILS % (AUTO) 0.1 % (0-2); HEMATOCRIT 30.4 % (36.0-47.0); HEMOGLOBIN 9.7 g/dL (12.0-15.5); LYMPHOCYTES % (AUTO) 5.2 % (13-45); MEAN CORPUSCULAR HEMOGLOBIN 27.5 pg (27.0-33.4); MEAN CORPUSCULAR HGB CONC 31.9 g/dL (32.0-36.0); MEAN CORPUSCULAR VOLUME 86 fl (80-97); MONOCYTES % (AUTO) 0.7 % (3-13); PLATELET COUNT 294 10^3/uL (150-450); RED BLOOD COUNT 3.53 10^6/uL (3.72-5.28); TOTAL CELLS COUNTED % (AUTO) 100 %; WHITE BLOOD COUNT 8.5 10^3/uL (4.0-10.5)
[2018-04-30] MEDS: HYDRALAZINE HCL INJ/PF 20 MG/1 ML SDV IV PRN (06:00)
[2018-04-30 06:04] LABS: BLOOD UREA NITROGEN 24 mg/dL (7-20); CALCIUM 8.6 mg/dL (8.4-10.2); CHLORIDE 93 mmol/L (98-107); GLUCOSE 203 mg/dL (75-110); POTASSIUM 4.2 mmol/L (3.6-5.0); SODIUM 140.1 mmol/L (137-145)
[2018-04-30 06:23] LABS: ANION GAP 8 (5-19)
[2018-04-30 06:27] LABS: CARBON DIOXIDE 39 mmol/L (22-30)
[2018-04-30 07:23] LABS: CREATINE KINASE MB 1.83 ng/mL (<4.55); TROPONIN I 0.015 ng/mL
[2018-04-30] MEDS: METFORMIN HCL 500 MG TABLET PO SCH ×2 (08:27→16:12)
[2018-04-30] MEDS: INSULIN LISPRO 100 UNIT/ML 3 ML VIAL SUBCUT PRN ×3 (08:28→22:33)
[2018-04-30] MEDS ORDERED: NITROGLYCERIN 0.4 MG/TAB 25 TAB/BOTTLE SL PRN (08:47)
[2018-04-30] MEDS ORDERED: FUROSEMIDE INJ/PF 40 MG/4 ML SDV IV ONE (09:00)
[2018-04-30] MEDS: FAMOTIDINE 20 MG TABLET PO SCH ×2 (09:27→22:41)
[2018-04-30] MEDS: MAGNESIUM OXIDE 400 MG TABLET PO SCH ×3 (09:27→17:36)
[2018-04-30] MEDS: POTASSIUM CHLORIDE 10 MEQ CAPSULE.ER PO SCH (09:27)
[2018-04-30] MEDS: DOCUSATE SODIUM 100 MG CAPSULE PO SCH (09:27)
[2018-04-30] MEDS: CLOPIDOGREL BISULFATE 75 MG TABLET PO SCH (09:28)
[2018-04-30] MEDS: METOPROLOL SUCCINATE 25 MG TAB.SR.24H PO SCH (09:28)
[2018-04-30] MEDS: ASPIRIN 81 MG TABLET, ENT COATED PO SCH (09:28)
[2018-04-30] MEDS: ISOSORBIDE MONONITRATE 30 MG TAB.ER.24H PO SCH (09:28)
--- NOTE | 2018-04-30 09:28 | EKG REPORT ---
SEVERITY:- ABNORMAL ECG - SINUS RHYTHM RBBB AND LAFB PROBABLE LVH WITH SECONDARY REPOL ABNRM : Confirmed by: Odilon Beckwith 30-Apr-2018 09:27:12
[2018-04-30 09:30] LABS: ARTERIAL BLOOD BASE EXCESS 6.3 mmol/L; ARTERIAL BLOOD FIO2 3L; ARTERIAL BLOOD HCO3 32.8 mmol/L (20-24); ARTERIAL BLOOD O2 SATURATION 96.3 % (94-98); ARTERIAL BLOOD PCO2 56.4 mmHg (35-45); ARTERIAL BLOOD PH 7.38 (7.35-7.45); ARTERIAL BLOOD PO2 87.1 mmHg (80-100); ARTERIAL BLOOD TOTAL CO2 34.5 mmol/L (21-25)
[2018-04-30] MEDS ORDERED: LANSOPRAZOLE 30 MG TAB.RAP.DR PO ONE (09:30)
--- NOTE | 2018-04-30 09:36 | PDOC PROGRESS REPORT ---
Subjective Progress Note for:: 04/30/18 Subjective:: This is a 73 years old female patient with multiple comorbidities who presents with chief complaint of shortness of breath and difficulty breathing despite using her home nebulizer. At presentation patient's found to have hypercarbia with PCO2 of 86. Patient has been managed with bronchodilators supplemental oxygen and BiPAP and will continue also her home medications. This morning I seen patient propped up in bed she reports this her shortness of breath is subsiding but she started to have chest pain radiating to her jaw her first set of cardiac enzymes negative and the chest pain subsided after she is given nitroglycerin sublingual. Reason For Visit: ACUTE ON CHRONIC HYPERCARBIC RESPIRATORY FAILURE Physical Exam Vital Signs: Temp Pulse Resp BP Pulse Ox 97.8 F 83 20 168/61 H 100 04/30/18 08:13 04/30/18 08:13 04/30/18 08:13 04/30/18 08:13 04/30/18 08:13 Intake & Output 04/29/18 04/30/18 05/01/18 06:59 06:59 06:59 Intake Total 0 Output Total 800 Balance -800 Weight 145 kg General appearance: PRESENT: mild distress Eye exam: PRESENT: conjunctiva pink Mouth exam: PRESENT: dry mucosa Neck exam: ABSENT: carotid bruit, JVD, lymphadenopathy, thyromegaly Respiratory exam: PRESENT: crackles, wheezes Cardiovascular exam: PRESENT: RRR. ABSENT: diastolic murmur, rubs, systolic murmur GI/Abdominal exam: PRESENT: normal bowel sounds, soft, other - Morbidly obese abdomen. ABSENT: distended, guarding, mass, organolmegaly, rebound, tenderness Neurological exam: PRESENT: alert, awake, oriented to time, oriented to situation Psychiatric exam: PRESENT: normal mood Results Laboratory Results: 04/30/18 04:54 04/30/18 04:54 04/30/18 04/30/18 04/30/18 04:54 04:54 09:05 WBC 8.5 RBC 3.53 L Hgb 9.7 L Hct 30.4 L MCV 86 MCH 27.5 MCHC 31.9 L RDW 17.0 H Plt Count 294 Seg Neutrophils % 94.0 H Lymphocytes % 5.2 L Monocytes % 0.7 L Eosinophils % 0.0 Basophils % 0.1 Absolute Neutrophils 8.0 Absolute Lymphocytes 0.4 L Absolute Monocytes 0.1 Absolute Eosinophils 0.0 Absolute Basophils 0.0 Carbonic Acid 1.70 H HCO3/H2CO3 Ratio 19:1 ABG pH 7.38 ABG pCO2 56.4 H ABG pO2 87.1 ABG HCO3 32.8 H ABG O2 Saturation 96.3 ABG Base Excess 6.3 FiO2 3L Sodium 140.1 Potassium 4.2 Chloride 93 L Carbon Dioxide 39 H Anion Gap 8 BUN 24 H Creatinine 0.53 Est GFR ( Amer) > 60 Est GFR (Non-Af Amer) > 60 Glucose 203 H Calcium 8.6 04/30/18 04/30/18 06:36 06:36 Creatine Kinase 70 CK-MB (CK-2) 1.83 Troponin I 0.015 Impressions: Chest X-Ray 04/29/18 15:39 IMPRESSION: Vascular congestion. Probable left effusion. Assessment & Plan - Diagnosis (1) Chest pain Qualifiers: Chest pain type: other chest pain Qualified Code(s): R07.89 - Other chest pain; R07.8 - Other chest pain Is this a current diagnosis for this admission?: Yes Plan: Chest pain subsided after she was given sublingual nitroglycerin. Patient has been started on Imdur 30 mg p.o. daily. (2) Acute and chronic respiratory failure with hypercapnia Is this a current diagnosis for this admission?: Yes Plan: Continue current regimen (3) COPD exacerbation Is this a current diagnosis for this admission?: Yes Plan: Patient has been started on Solu-Medrol, DuoNeb, Spiriva and supplemental oxygen. (4) Hypothyroidism Qualifiers: Hypothyroidism type: acquired Qualified Code(s): E03.9 - Hypothyroidism, unspecified Is this a current diagnosis for this admission?: Yes Plan: Continue her home Synthroid (5) Type 2 diabetes mellitus Is this a current diagnosis for this admission?: Yes Plan: Continue her home metformin and put her on sliding scale. (6) Coronary artery disease Qualifiers: Coronary Disease-Associated Artery/Lesion type: [place] artery Is this a current diagnosis for this admission?: Yes Plan: This post stent placement 2. Currently patient does not have angina. And I will continue her home medication. (7) Morbid obesity with BMI of 45.0-49.9, adult Is this a current diagnosis for this admission?: Yes Plan: I think it is very difficult for this patient to lose weight since she is bed and wheelchair bound.
[2018-04-30] MEDS: TIOTROPIUM BROMIDE DPI 5 CAP/KIT (18 MCG/CAP) IH SCH (09:37)
[2018-04-30] MEDS: MORPHINE SULFATE 10 MG/ML INJ INJ PRN (09:37)
[2018-04-30] MEDS: POLYETHYLENE GLYCOL 3350 POWDER 17 GM/1 PACKET PO SCH (09:37)
[2018-04-30] MEDS: AZITHROMYCIN 500 MG in DEXTROSE 5%-WATER 250 ML IV SCH (09:58)
[2018-04-30] MEDS: FUROSEMIDE 40 MG TABLET PO SCH ×2 (10:00→17:37)
[2018-04-30] MEDS ORDERED: (PENDING PHARMACY ID) (Calcium Carbonate/Vitamin D3 [Calcium 500-Vit D3 200 Caplet] 1 TAB) PO SCH (10:00)
[2018-04-30] MEDS: NITROGLYCERIN 2% OINTMENT 1 GM PACKET TP SCH ×2 (10:38→22:32)
[2018-04-30] MEDS: LORATADINE 10 MG TABLET PO SCH (10:38)
[2018-04-30] MEDS: BUDESONIDE/FORMOTEROL 160-4.5 MCG 60 PUFF/6 GM MDI IH SCH ×2 (10:40→22:30)
[2018-04-30] MEDS: CALCIUM CARBONATE 250 MG/VITAMIN D3 125 UNIT TABLET PO SCH (10:40)
[2018-04-30] MEDS: TERBINAFINE HCL 250 MG TABLET PO SCH (10:40)
[2018-04-30] MEDS ORDERED: (PENDING PHARMACY ID) (Liothyronine Sodium [Cytomel] 10 MCG) PO SCH (12:00)
[2018-04-30] MEDS: LIOTHYRONINE SODIUM 5 MCG TABLET PO SCH (12:43)
[2018-04-30 13:15] LABS: CREATINE KINASE MB 2.76 ng/mL (<4.55); TROPONIN I 0.068 ng/mL
[2018-04-30 19:09] LABS: CREATINE KINASE MB 5.1 ng/mL (<4.55)
[2018-04-30 19:22] LABS: TROPONIN I 0.832 ng/mL
[2018-04-30] MEDS: MONTELUKAST SODIUM 10 MG TABLET PO SCH (22:31)
[2018-04-30] MEDS: ATORVASTATIN CALCIUM 40 MG TABLET PO SCH (22:31)
[2018-05-01] MEDS: LEVALBUTEROL HCL NEB 1.25 MG/3 ML AMPUL NEB SCH ×5 (04:18→20:15)
[2018-05-01 05:15] LABS: ABSOLUTE LYMPHOCYTES (AUTO) 0.9 10^3/uL (0.5-4.7); ABSOLUTE MONOCYTES (AUTO) 0.7 10^3/uL (0.1-1.4); ABSOLUTE NEUT (AUTO) 6.5 10^3/uL (1.7-8.2); BASOPHILS % (AUTO) 0.1 % (0-2); EOSINOPHILS % (AUTO) 0.1 % (0-6); HEMATOCRIT 27.7 % (36.0-47.0); LYMPHOCYTES % (AUTO) 11.6 % (13-45); MEAN CORPUSCULAR HEMOGLOBIN 27.9 pg (27.0-33.4); MEAN CORPUSCULAR HGB CONC 32.4 g/dL (32.0-36.0); MEAN CORPUSCULAR VOLUME 86 fl (80-97); MONOCYTES % (AUTO) 8.4 % (3-13); PLATELET COUNT 300 10^3/uL (150-450); RED BLOOD COUNT 3.21 10^6/uL (3.72-5.28); RED CELL DISTRIBUTION WIDTH 16.8 % (11.5-14.0); SEGMENTED NEUTROPHILS % (AUTO) 79.8 % (42-78); TOTAL CELLS COUNTED % (AUTO) 100 %; WHITE BLOOD COUNT 8.2 10^3/uL (4.0-10.5)
[2018-05-01 05:40] LABS: BLOOD UREA NITROGEN 43 mg/dL (7-20); CALCIUM 8.7 mg/dL (8.4-10.2); CHLORIDE 93 mmol/L (98-107); GLUCOSE 151 mg/dL (75-110); POTASSIUM 4.5 mmol/L (3.6-5.0); SODIUM 140.4 mmol/L (137-145)
[2018-05-01 05:54] LABS: CARBON DIOXIDE 43 mmol/L (22-30)
[2018-05-01 05:56] LABS: ANION GAP 4 (5-19)
[2018-05-01] MEDS: METHYLPREDNISOLONE INJ 40 MG/1 ML SDV IV SCH ×3 (06:00→21:28)
[2018-05-01] MEDS ORDERED: LANSOPRAZOLE 30 MG TAB.RAP.DR PO SCH (06:00)
[2018-05-01] MEDS: LANSOPRAZOLE 30 MG TAB.RAP.DR PO SCH (06:00)
[2018-05-01] MEDS: HEPARIN SOD (PORCINE) 5,000 UNIT/ML 1 ML SYRINGE SUBCUT SCH ×3 (06:02→21:27)
[2018-05-01] MEDS: GLIPIZIDE 10 MG TABLET PO SCH (08:09)
[2018-05-01] MEDS: METFORMIN HCL 500 MG TABLET PO SCH ×2 (08:09→17:01)
--- NOTE | 2018-05-01 08:54 | PDOC PROGRESS REPORT ---
Subjective Progress Note for:: 05/01/18 Subjective:: Patient seen and examined at bedside. She reports this her chest pain has resolved and his breathing has been improved. No fever, chest pain, nausea or vomiting. Reason For Visit: ACUTE ON CHRONIC HYPERCARBIC RESPIRATORY FAILURE Physical Exam Vital Signs: Temp Pulse Resp BP Pulse Ox 98.0 F 65 22 H 128/41 H 95 05/01/18 07:44 05/01/18 07:44 05/01/18 07:44 05/01/18 07:44 05/01/18 07:44 Intake & Output 04/30/18 05/01/18 05/02/18 06:59 06:59 06:59 Intake Total 0 1210 Output Total 800 2400 Balance -800 -1190 Weight 145 kg 145 kg General appearance: PRESENT: mild distress Head exam: PRESENT: atraumatic Eye exam: PRESENT: conjunctiva pink Mouth exam: PRESENT: moist Neck exam: ABSENT: carotid bruit, JVD, lymphadenopathy, thyromegaly Respiratory exam: PRESENT: decreased breath sounds, wheezes Cardiovascular exam: PRESENT: RRR. ABSENT: diastolic murmur, rubs, systolic murmur GI/Abdominal exam: PRESENT: ascites Neurological exam: PRESENT: alert, awake, oriented to time, oriented to situation Results Laboratory Results: 05/01/18 04:47 05/01/18 04:47 04/30/18 05/01/18 05/01/18 09:05 04:47 04:47 WBC 8.2 RBC 3.21 L Hgb 9.0 L Hct 27.7 L MCV 86 MCH 27.9 MCHC 32.4 RDW 16.8 H Plt Count 300 Seg Neutrophils % 79.8 H Lymphocytes % 11.6 L Monocytes % 8.4 Eosinophils % 0.1 Basophils % 0.1 Absolute Neutrophils 6.5 Absolute Lymphocytes 0.9 Absolute Monocytes 0.7 Absolute Eosinophils 0.0 Absolute Basophils 0.0 Carbonic Acid 1.70 H HCO3/H2CO3 Ratio 19:1 ABG pH 7.38 ABG pCO2 56.4 H ABG pO2 87.1 ABG HCO3 32.8 H ABG O2 Saturation 96.3 ABG Base Excess 6.3 FiO2 3L Sodium 140.4 Potassium 4.5 Chloride 93 L Carbon Dioxide 43 H* Anion Gap 4 L BUN 43 H Creatinine 0.84 Est GFR ( Amer) > 60 Est GFR (Non-Af Amer) > 60 Glucose 151 H Calcium 8.7 04/30/18 04/30/18 04/30/18 06:36 06:36 12:36 Creatine Kinase 70 66 CK-MB (CK-2) 1.83 Troponin I 0.015 04/30/18 04/30/18 04/30/18 12:36 18:28 18:28 Creatine Kinase 77 CK-MB (CK-2) 2.76 5.10 H Troponin I 0.068 0.832 Impressions: Chest X-Ray 04/29/18 15:39 IMPRESSION: Vascular congestion. Probable left effusion. Assessment & Plan - Diagnosis (1) Chest pain Qualifiers: Chest pain type: other chest pain Qualified Code(s): R07.89 - Other chest pain; R07.8 - Other chest pain Is this a current diagnosis for this admission?: Yes Plan: Has resolved after she has been started on Nitropaste. (2) Acute and chronic respiratory failure with hypercapnia Is this a current diagnosis for this admission?: Yes Plan: Continue current regimen (3) COPD exacerbation Is this a current diagnosis for this admission?: Yes Plan: Patient has been started on Solu-Medrol, DuoNeb, Spiriva and supplemental oxygen. (4) Hypothyroidism Qualifiers: Hypothyroidism type: acquired Qualified Code(s): E03.9 - Hypothyroidism, unspecified Is this a current diagnosis for this admission?: Yes Plan: Continue her home Synthroid (5) Type 2 diabetes mellitus Is this a current diagnosis for this admission?: Yes Plan: Continue her home metformin and put her on sliding scale. (6) Coronary artery disease Qualifiers: Coronary Disease-Associated Artery/Lesion type: [place] artery Is this a current diagnosis for this admission?: Yes Plan: This post stent placement 2. Currently patient does not have angina. And I will continue her home medication. (7) Morbid obesity with BMI of 45.0-49.9, adult Is this a current diagnosis for this admission?: Yes Plan: I think it is very difficult for this patient to lose weight since she is bed and wheelchair bound.
[2018-05-01] MEDS: METOPROLOL SUCCINATE 25 MG TAB.SR.24H PO SCH (09:02)
[2018-05-01] MEDS: CLOPIDOGREL BISULFATE 75 MG TABLET PO SCH (09:02)
[2018-05-01] MEDS: POTASSIUM CHLORIDE 10 MEQ CAPSULE.ER PO SCH (09:03)
[2018-05-01] MEDS: FUROSEMIDE 40 MG TABLET PO SCH ×2 (09:03→17:01)
[2018-05-01] MEDS: DOCUSATE SODIUM 100 MG CAPSULE PO SCH (09:03)
[2018-05-01] MEDS: FAMOTIDINE 20 MG TABLET PO SCH ×2 (09:03→21:28)
[2018-05-01] MEDS: LORATADINE 10 MG TABLET PO SCH (09:03)
[2018-05-01] MEDS: TERBINAFINE HCL 250 MG TABLET PO SCH (09:03)
[2018-05-01] MEDS: CALCIUM CARBONATE 250 MG/VITAMIN D3 125 UNIT TABLET PO SCH (09:03)
[2018-05-01] MEDS: ASPIRIN 81 MG TABLET, ENT COATED PO SCH (09:03)
[2018-05-01] MEDS: ISOSORBIDE MONONITRATE 30 MG TAB.ER.24H PO SCH (09:03)
[2018-05-01] MEDS: MAGNESIUM OXIDE 400 MG TABLET PO SCH ×3 (09:03→17:01)
[2018-05-01] MEDS: TIOTROPIUM BROMIDE DPI 5 CAP/KIT (18 MCG/CAP) IH SCH (09:04)
[2018-05-01] MEDS: NITROGLYCERIN 2% OINTMENT 1 GM PACKET TP SCH ×2 (09:04→21:29)
[2018-05-01] MEDS: BUDESONIDE/FORMOTEROL 160-4.5 MCG 60 PUFF/6 GM MDI IH SCH ×2 (09:04→21:30)
[2018-05-01] MEDS: AZITHROMYCIN 500 MG in DEXTROSE 5%-WATER 250 ML IV SCH (09:05)
[2018-05-01] MEDS: POLYETHYLENE GLYCOL 3350 POWDER 17 GM/1 PACKET PO SCH (09:13)
[2018-05-01] MEDS: INSULIN LISPRO 100 UNIT/ML 3 ML VIAL SUBCUT PRN ×3 (12:49→21:36)
[2018-05-01] MEDS: LIOTHYRONINE SODIUM 5 MCG TABLET PO SCH (12:50)
[2018-05-01] MEDS: MORPHINE SULFATE 10 MG/ML INJ INJ PRN (21:03)
[2018-05-01] MEDS: MONTELUKAST SODIUM 10 MG TABLET PO SCH (21:28)
[2018-05-01] MEDS: ATORVASTATIN CALCIUM 40 MG TABLET PO SCH (21:28)
[2018-05-02] MEDS: LEVALBUTEROL HCL NEB 1.25 MG/3 ML AMPUL NEB SCH ×7 (00:17→23:57)
[2018-05-02 05:12] LABS: BLOOD UREA NITROGEN 48 mg/dL (7-20); CALCIUM 8.8 mg/dL (8.4-10.2); CHLORIDE 93 mmol/L (98-107); GLUCOSE 216 mg/dL (75-110); HEMATOCRIT 27.7 % (36.0-47.0); MEAN CORPUSCULAR HEMOGLOBIN 27.8 pg (27.0-33.4); MEAN CORPUSCULAR HGB CONC 32.5 g/dL (32.0-36.0); MEAN CORPUSCULAR VOLUME 86 fl (80-97); PLATELET COUNT 284 10^3/uL (150-450); RED BLOOD COUNT 3.23 10^6/uL (3.72-5.28); RED CELL DISTRIBUTION WIDTH 16.7 % (11.5-14.0); WHITE BLOOD COUNT 8.2 10^3/uL (4.0-10.5)
[2018-05-02 05:36] LABS: SODIUM 139.3 mmol/L (137-145)
[2018-05-02 05:37] LABS: ABSOLUTE LYMPHOCYTES# (MANUAL) 0.5 10^3/uL (0.5-4.7); ABSOLUTE MONOCYTES # (MANUAL) 0.4 10^3/uL (0.1-1.4); ABSOLUTE NEUTROPHILS# (MANUAL) 7.3 10^3/uL (1.7-8.2); BASOPHILS % (MANUAL) 0 % (0-2); EOSINOPHILS % (MANUAL) 0 % (0-6); LYMPHOCYTES % (MANUAL) 6 % (13-45); MONOCYTES % (MANUAL) 5 % (3-13); SEGMENTED NEUTROPHILS % (MAN) 89 % (42-78); TOTAL CELLS COUNTED 100
[2018-05-02 05:42] LABS: OVALOCYTES 1+; POIKILOCYTOSIS 1+; POLYCHROMASIA 1+; TOXIC GRANULATION SLIGHT
[2018-05-02 05:43] LABS: PLATELET COMMENT ADEQUATE
[2018-05-02 05:51] LABS: ANION GAP 1 (5-19)
[2018-05-02 05:52] LABS: CARBON DIOXIDE 45 mmol/L (22-30); POTASSIUM 5.7 mmol/L (3.6-5.0)
[2018-05-02] MEDS: HEPARIN SOD (PORCINE) 5,000 UNIT/ML 1 ML SYRINGE SUBCUT SCH ×3 (06:49→22:18)
[2018-05-02] MEDS: LANSOPRAZOLE 30 MG TAB.RAP.DR PO SCH (06:49)
[2018-05-02] MEDS: METHYLPREDNISOLONE INJ 40 MG/1 ML SDV IV SCH ×3 (06:50→22:17)
[2018-05-02] MEDS: GLIPIZIDE 10 MG TABLET PO SCH (09:34)
[2018-05-02] MEDS: METFORMIN HCL 500 MG TABLET PO SCH ×2 (09:35→15:41)
[2018-05-02] MEDS: INSULIN LISPRO 100 UNIT/ML 3 ML VIAL SUBCUT PRN ×4 (09:35→22:19)
[2018-05-02] MEDS: CLOPIDOGREL BISULFATE 75 MG TABLET PO SCH (09:36)
[2018-05-02] MEDS: CALCIUM CARBONATE 250 MG/VITAMIN D3 125 UNIT TABLET PO SCH (09:36)
[2018-05-02] MEDS: POLYETHYLENE GLYCOL 3350 POWDER 17 GM/1 PACKET PO SCH (09:36)
[2018-05-02] MEDS: MAGNESIUM OXIDE 400 MG TABLET PO SCH ×3 (09:36→17:33)
[2018-05-02] MEDS: FAMOTIDINE 20 MG TABLET PO SCH ×2 (09:37→22:19)
[2018-05-02] MEDS: ASPIRIN 81 MG TABLET, ENT COATED PO SCH (09:37)
[2018-05-02] MEDS: METOPROLOL SUCCINATE 25 MG TAB.SR.24H PO SCH (09:37)
[2018-05-02] MEDS: NITROGLYCERIN 2% OINTMENT 1 GM PACKET TP SCH ×2 (09:37→22:38)
[2018-05-02] MEDS: FUROSEMIDE 40 MG TABLET PO SCH ×2 (09:37→17:33)
[2018-05-02] MEDS: LORATADINE 10 MG TABLET PO SCH (09:37)
[2018-05-02] MEDS: DOCUSATE SODIUM 100 MG CAPSULE PO SCH (09:37)
[2018-05-02] MEDS: BUDESONIDE/FORMOTEROL 160-4.5 MCG 60 PUFF/6 GM MDI IH SCH ×2 (09:38→22:31)
[2018-05-02] MEDS: TIOTROPIUM BROMIDE DPI 5 CAP/KIT (18 MCG/CAP) IH SCH (09:39)
[2018-05-02] MEDS: AZITHROMYCIN 500 MG in DEXTROSE 5%-WATER 250 ML IV SCH (09:45)
[2018-05-02] MEDS: TERBINAFINE HCL 250 MG TABLET PO SCH (09:45)
[2018-05-02 09:59] LABS: ARTERIAL BLOOD BASE EXCESS 17.4 mmol/L; ARTERIAL BLOOD FIO2 30%; ARTERIAL BLOOD H2CO3 2.58 mmol/L (1.05-1.35); ARTERIAL BLOOD HCO3 46.1 mmol/L (20-24); ARTERIAL BLOOD O2 SATURATION 93.4 % (94-98); ARTERIAL BLOOD PH 7.35 (7.35-7.45); ARTERIAL BLOOD TOTAL CO2 48.7 mmol/L (21-25)
[2018-05-02] MEDS: ISOSORBIDE MONONITRATE 30 MG TAB.ER.24H PO SCH (10:01)
[2018-05-02 10:03] LABS: ARTERIAL BLOOD PCO2 85.8 mmHg (35-45)
--- NOTE | 2018-05-02 10:21 | PDOC PROGRESS REPORT ---
Subjective Subjective:: I seen patient resting in bed. She is clinically stable but her ABG is not good to his PCO2 of 85 and also her BMP shows hyperkalemia with potassium of 5.7 and she is given Kayexalate and I hold her potassium chloride. Reason For Visit: ACUTE ON CHRONIC HYPERCARBIC RESPIRATORY FAILURE Physical Exam Vital Signs: Temp Pulse Resp BP Pulse Ox 97.6 F 62 18 145/54 H 97 05/02/18 07:45 05/02/18 08:05 05/02/18 08:05 05/02/18 07:45 05/02/18 08:05 Intake & Output 05/01/18 05/02/18 05/03/18 06:59 06:59 06:59 Intake Total 1210 709 Output Total 2400 1925 Balance -1190 -1216 Weight 145 kg General appearance: PRESENT: no acute distress Eye exam: PRESENT: conjunctiva pink Mouth exam: PRESENT: moist Neck exam: ABSENT: carotid bruit, JVD, lymphadenopathy, thyromegaly Respiratory exam: PRESENT: clear to auscultation joel. ABSENT: rales, rhonchi, wheezes Cardiovascular exam: PRESENT: RRR. ABSENT: diastolic murmur, rubs, systolic murmur Neurological exam: PRESENT: alert, awake, oriented to time, oriented to situation Results Laboratory Results: 05/02/18 04:35 05/02/18 04:35 05/02/18 05/02/18 05/02/18 04:35 04:35 09:10 WBC 8.2 RBC 3.23 L Hgb 9.0 L Hct 27.7 L MCV 86 MCH 27.8 MCHC 32.5 RDW 16.7 H Plt Count 284 Seg Neutrophils % Not Reportable Lymphocytes % Not Reportable Monocytes % Not Reportable Eosinophils % Not Reportable Basophils % Not Reportable Absolute Neutrophils Not Reportable Absolute Lymphocytes Not Reportable Absolute Monocytes Not Reportable Absolute Eosinophils Not Reportable Absolute Basophils Not Reportable Carbonic Acid 2.58 H HCO3/H2CO3 Ratio 17:1 ABG pH 7.35 ABG pCO2 85.8 H* ABG pO2 75.0 L ABG HCO3 46.1 H ABG O2 Saturation 93.4 L ABG Base Excess 17.4 FiO2 30% Sodium 139.3 Potassium 5.7 H D Chloride 93 L Carbon Dioxide 45 H* Anion Gap 1 L BUN 48 H Creatinine 0.85 Est GFR ( Amer) > 60 Est GFR (Non-Af Amer) > 60 Glucose 216 H Calcium 8.8 04/30/18 04/30/18 04/30/18 06:36 06:36 12:36 Creatine Kinase 70 66 CK-MB (CK-2) 1.83 Troponin I 0.015 04/30/18 04/30/18 04/30/18 12:36 18:28 18:28 Creatine Kinase 77 CK-MB (CK-2) 2.76 5.10 H Troponin I 0.068 0.832 Impressions: Chest X-Ray 04/29/18 15:39 IMPRESSION: Vascular congestion. Probable left effusion. Assessment & Plan - Diagnosis (1) Hyperkalemia Is this a current diagnosis for this admission?: Yes Plan: DAVE Moreno-Henrry. Kayexalate 30 g p.o. stat and BMP in a.m. (2) Chest pain Qualifiers: Chest pain type: other chest pain Qualified Code(s): R07.89 - Other chest pain; R07.8 - Other chest pain Is this a current diagnosis for this admission?: Yes Plan: Has resolved after she has been started on Nitropaste. (3) Acute and chronic respiratory failure with hypercapnia Is this a current diagnosis for this admission?: Yes Plan: Continue current regimen (4) COPD exacerbation Is this a current diagnosis for this admission?: Yes Plan: Patient has been started on Solu-Medrol, DuoNeb, Spiriva and supplemental oxygen. (5) Hypothyroidism Qualifiers: Hypothyroidism type: acquired Qualified Code(s): E03.9 - Hypothyroidism, unspecified Is this a current diagnosis for this admission?: Yes Plan: Continue her home Synthroid (6) Type 2 diabetes mellitus Is this a current diagnosis for this admission?: Yes Plan: Continue her home metformin and put her on sliding scale. (7) Coronary artery disease Qualifiers: Coronary Disease-Associated Artery/Lesion type: [place] artery Is this a current diagnosis for this admission?: Yes Plan: This post stent placement 2. Currently patient does not have angina. And I will continue her home medication. (8) Morbid obesity with BMI of 45.0-49.9, adult Is this a current diagnosis for this admission?: Yes Plan: I think it is very difficult for this patient to lose weight since she is bed and wheelchair bound.
[2018-05-02] MEDS ORDERED: SODIUM POLYSTYRENE SULFONATE 15 GM/60 ML PO ONE (10:30)
[2018-05-02] MEDS: LIOTHYRONINE SODIUM 5 MCG TABLET PO SCH (11:04)
[2018-05-02] MEDS: ATORVASTATIN CALCIUM 40 MG TABLET PO SCH (22:19)
[2018-05-02] MEDS: MONTELUKAST SODIUM 10 MG TABLET PO SCH (22:19)
[2018-05-03] MEDS: LEVALBUTEROL HCL NEB 1.25 MG/3 ML AMPUL NEB SCH ×5 (04:06→20:33)
[2018-05-03] MEDS: METHYLPREDNISOLONE INJ 40 MG/1 ML SDV IV SCH (05:16)
[2018-05-03] MEDS: MORPHINE SULFATE 10 MG/ML INJ INJ PRN ×2 (05:17→23:04)
[2018-05-03] MEDS: HEPARIN SOD (PORCINE) 5,000 UNIT/ML 1 ML SYRINGE SUBCUT SCH ×3 (05:18→22:59)
[2018-05-03] MEDS: LANSOPRAZOLE 30 MG TAB.RAP.DR PO SCH (05:19)
[2018-05-03 05:45] LABS: BLOOD UREA NITROGEN 48 mg/dL (7-20); CALCIUM 8.8 mg/dL (8.4-10.2); CHLORIDE 90 mmol/L (98-107); GLUCOSE 232 mg/dL (75-110); SODIUM 139.9 mmol/L (137-145)
[2018-05-03 07:19] LABS: ANION GAP 4 (5-19); CARBON DIOXIDE 46 mmol/L (22-30)
[2018-05-03] MEDS: ACETYLCYSTEINE 20% SOLN 800 MG/4 ML VIAL.NEB NEB SCH ×2 (08:39→20:33)
[2018-05-03] MEDS: INSULIN LISPRO 100 UNIT/ML 3 ML VIAL SUBCUT PRN ×3 (10:22→17:53)
[2018-05-03] MEDS: METFORMIN HCL 500 MG TABLET PO SCH ×2 (10:22→17:53)
[2018-05-03] MEDS: GLIPIZIDE 10 MG TABLET PO SCH (10:22)
[2018-05-03] MEDS: BUDESONIDE/FORMOTEROL 160-4.5 MCG 60 PUFF/6 GM MDI IH SCH ×2 (10:23→23:02)
[2018-05-03] MEDS: MAGNESIUM OXIDE 400 MG TABLET PO SCH ×3 (10:23→17:53)
[2018-05-03] MEDS: TIOTROPIUM BROMIDE DPI 5 CAP/KIT (18 MCG/CAP) IH SCH (10:23)
[2018-05-03] MEDS: FAMOTIDINE 20 MG TABLET PO SCH ×2 (10:24→23:00)
[2018-05-03] MEDS: AZITHROMYCIN 500 MG in DEXTROSE 5%-WATER 250 ML IV SCH (10:24)
[2018-05-03] MEDS: CALCIUM CARBONATE 250 MG/VITAMIN D3 125 UNIT TABLET PO SCH (10:24)
[2018-05-03] MEDS: POLYETHYLENE GLYCOL 3350 POWDER 17 GM/1 PACKET PO SCH (10:25)
[2018-05-03] MEDS: NITROGLYCERIN 2% OINTMENT 1 GM PACKET TP SCH ×2 (10:25→23:00)
[2018-05-03] MEDS: DOCUSATE SODIUM 100 MG CAPSULE PO SCH (10:26)
[2018-05-03] MEDS: ASPIRIN 81 MG TABLET, ENT COATED PO SCH (10:26)
[2018-05-03] MEDS: LORATADINE 10 MG TABLET PO SCH (10:26)
[2018-05-03] MEDS: CLOPIDOGREL BISULFATE 75 MG TABLET PO SCH (10:26)
[2018-05-03] MEDS: METOPROLOL SUCCINATE 25 MG TAB.SR.24H PO SCH (10:27)
[2018-05-03] MEDS: ISOSORBIDE MONONITRATE 30 MG TAB.ER.24H PO SCH (10:27)
[2018-05-03] MEDS: FUROSEMIDE 40 MG TABLET PO SCH (10:27)
[2018-05-03] MEDS: TERBINAFINE HCL 250 MG TABLET PO SCH (10:28)
--- NOTE | 2018-05-03 10:34 | PDOC PROGRESS REPORT ---
Subjective Progress Note for:: 05/03/18 Subjective:: I seen patient lying in bed. She is in mild to moderate respiratory distress. Patient complains that she could not cough up thick tenacious sputum. She is started on Mucomyst. I tapered her Lasix from 40 twice daily to 40 daily. Reason For Visit: ACUTE ON CHRONIC HYPERCARBIC RESPIRATORY FAILURE Physical Exam Vital Signs: Temp Pulse Resp BP Pulse Ox 97.4 F 82 20 171/59 H 89 L 05/03/18 08:31 05/03/18 08:31 05/03/18 04:06 05/03/18 08:31 05/03/18 08:31 Intake & Output 05/02/18 05/03/18 05/04/18 06:59 06:59 06:59 Intake Total 709 877 Output Total 3944 0855 Balance -1216 -1298 General appearance: PRESENT: mild distress Head exam: PRESENT: atraumatic Eye exam: PRESENT: conjunctiva pink Mouth exam: PRESENT: dry mucosa Neck exam: ABSENT: carotid bruit, JVD, lymphadenopathy, thyromegaly Respiratory exam: PRESENT: wheezes Cardiovascular exam: PRESENT: RRR. ABSENT: diastolic murmur, rubs, systolic murmur GI/Abdominal exam: PRESENT: normal bowel sounds, soft. ABSENT: distended, guarding, mass, organolmegaly, rebound, tenderness Neurological exam: PRESENT: alert, oriented to time, oriented to situation, reflexes normal Results Laboratory Results: 05/02/18 04:35 05/03/18 04:49 05/03/18 04:49 Sodium 139.9 Potassium 5.0 Chloride 90 L Carbon Dioxide 46 H* Anion Gap 4 L BUN 48 H Creatinine 0.68 Est GFR ( Amer) > 60 Est GFR (Non-Af Amer) > 60 Glucose 232 H Calcium 8.8 04/30/18 04/30/18 04/30/18 06:36 06:36 12:36 Creatine Kinase 70 66 CK-MB (CK-2) 1.83 Troponin I 0.015 04/30/18 04/30/18 04/30/18 12:36 18:28 18:28 Creatine Kinase 77 CK-MB (CK-2) 2.76 5.10 H Troponin I 0.068 0.832 Impressions: Chest X-Ray 04/29/18 15:39 IMPRESSION: Vascular congestion. Probable left effusion. Assessment & Plan - Diagnosis (1) Hyperkalemia Is this a current diagnosis for this admission?: Yes Plan: Resolved (2) Chest pain Qualifiers: Chest pain type: other chest pain Qualified Code(s): R07.89 - Other chest pain; R07.8 - Other chest pain Is this a current diagnosis for this admission?: Yes Plan: Has resolved after she has been started on Nitropaste. (3) Acute and chronic respiratory failure with hypercapnia Is this a current diagnosis for this admission?: Yes Plan: Continue current regimen (4) COPD exacerbation Is this a current diagnosis for this admission?: Yes Plan: Patient has been started on Solu-Medrol, DuoNeb, Spiriva and supplemental oxygen. (5) Hypothyroidism Qualifiers: Hypothyroidism type: acquired Qualified Code(s): E03.9 - Hypothyroidism, unspecified Is this a current diagnosis for this admission?: Yes Plan: Continue her home Synthroid (6) Type 2 diabetes mellitus Is this a current diagnosis for this admission?: Yes Plan: Continue her home metformin and put her on sliding scale. (7) Coronary artery disease Qualifiers: Coronary Disease-Associated Artery/Lesion type: [place] artery Is this a current diagnosis for this admission?: Yes Plan: This post stent placement 2. Currently patient does not have angina. And I will continue her home medication. (8) Morbid obesity with BMI of 45.0-49.9, adult Is this a current diagnosis for this admission?: Yes Plan: I think it is very difficult for this patient to lose weight since she is bed and wheelchair bound.
[2018-05-03] MEDS: LIOTHYRONINE SODIUM 5 MCG TABLET PO SCH (12:00)
[2018-05-03 12:10] LABS: ARTERIAL BLOOD BASE EXCESS 9.8 mmol/L; ARTERIAL BLOOD FIO2 3.5L; ARTERIAL BLOOD H2CO3 2.62 mmol/L (1.05-1.35); ARTERIAL BLOOD HCO3 38.8 mmol/L (20-24); ARTERIAL BLOOD O2 SATURATION 98.4 % (94-98); ARTERIAL BLOOD PH 7.27 (7.35-7.45); ARTERIAL BLOOD PO2 144.7 mmHg (80-100); ARTERIAL BLOOD TOTAL CO2 41.5 mmol/L (21-25)
[2018-05-03 12:11] LABS: ARTERIAL BLOOD PCO2 87.1 mmHg (35-45)
[2018-05-03] MEDS: ATORVASTATIN CALCIUM 40 MG TABLET PO SCH (23:00)
[2018-05-03] MEDS: MONTELUKAST SODIUM 10 MG TABLET PO SCH (23:00)
[2018-05-04] MEDS: LEVALBUTEROL HCL NEB 1.25 MG/3 ML AMPUL NEB SCH ×6 (00:18→20:26)
[2018-05-04] MEDS: HEPARIN SOD (PORCINE) 5,000 UNIT/ML 1 ML SYRINGE SUBCUT SCH ×3 (05:45→23:07)
[2018-05-04] MEDS: LANSOPRAZOLE 30 MG TAB.RAP.DR PO SCH (05:46)
[2018-05-04] MEDS: MORPHINE SULFATE 10 MG/ML INJ INJ PRN ×5 (08:40→19:15)
[2018-05-04] MEDS: METFORMIN HCL 500 MG TABLET PO SCH ×2 (08:45→17:19)
[2018-05-04] MEDS: GLIPIZIDE 10 MG TABLET PO SCH (08:45)
[2018-05-04] MEDS: ACETYLCYSTEINE 20% SOLN 800 MG/4 ML VIAL.NEB NEB SCH ×2 (09:52→20:25)
[2018-05-04] MEDS: TIOTROPIUM BROMIDE DPI 5 CAP/KIT (18 MCG/CAP) IH SCH (10:36)
[2018-05-04] MEDS: BUDESONIDE/FORMOTEROL 160-4.5 MCG 60 PUFF/6 GM MDI IH SCH ×2 (10:37→23:09)
[2018-05-04] MEDS: FAMOTIDINE 20 MG TABLET PO SCH ×2 (10:38→23:08)
[2018-05-04] MEDS: PREDNISONE 20 MG TABLET PO SCH (10:39)
[2018-05-04] MEDS: MAGNESIUM OXIDE 400 MG TABLET PO SCH ×3 (10:39→17:19)
[2018-05-04] MEDS: CALCIUM CARBONATE 250 MG/VITAMIN D3 125 UNIT TABLET PO SCH (10:40)
[2018-05-04] MEDS: POLYETHYLENE GLYCOL 3350 POWDER 17 GM/1 PACKET PO SCH (10:40)
[2018-05-04] MEDS: AZITHROMYCIN 250 MG TABLET PO SCH (10:41)
[2018-05-04] MEDS: CLOPIDOGREL BISULFATE 75 MG TABLET PO SCH (10:41)
[2018-05-04] MEDS: ASPIRIN 81 MG TABLET, ENT COATED PO SCH (10:41)
[2018-05-04] MEDS: METOPROLOL SUCCINATE 25 MG TAB.SR.24H PO SCH (10:41)
[2018-05-04] MEDS: DOCUSATE SODIUM 100 MG CAPSULE PO SCH (10:41)
[2018-05-04] MEDS: NITROGLYCERIN 2% OINTMENT 1 GM PACKET TP SCH ×2 (10:42→23:07)
[2018-05-04] MEDS: FUROSEMIDE 40 MG TABLET PO SCH (10:42)
[2018-05-04] MEDS: ISOSORBIDE MONONITRATE 30 MG TAB.ER.24H PO SCH (10:42)
[2018-05-04] MEDS: LORATADINE 10 MG TABLET PO SCH (10:42)
[2018-05-04] MEDS: TERBINAFINE HCL 250 MG TABLET PO SCH (10:43)
[2018-05-04 11:18] LABS: ARTERIAL BLOOD BASE EXCESS 15.6 mmol/L; ARTERIAL BLOOD H2CO3 2.82 mmol/L (1.05-1.35); ARTERIAL BLOOD HCO3 45.5 mmol/L (20-24); ARTERIAL BLOOD O2 SATURATION 93.9 % (94-98); ARTERIAL BLOOD PO2 80.4 mmHg (80-100); ARTERIAL BLOOD TOTAL CO2 48.4 mmol/L (21-25)
[2018-05-04 11:19] LABS: ARTERIAL BLOOD FIO2 2L
[2018-05-04 11:23] LABS: ARTERIAL BLOOD PCO2 93.8 mmHg (35-45)
[2018-05-04] MEDS: LIOTHYRONINE SODIUM 5 MCG TABLET PO SCH (12:22)
[2018-05-04] MEDS: INSULIN LISPRO 100 UNIT/ML 3 ML VIAL SUBCUT PRN ×2 (14:43→23:22)
--- NOTE | 2018-05-04 14:58 | PDOC PROGRESS REPORT ---
Subjective Progress Note for:: 05/04/18 Subjective:: I seen patient resting in bed comfortably. This morning her ABG revealed a PCO2 of 93 which is worse than yesterday. Otherwise patient's clinical stable Reason For Visit: ACUTE ON CHRONIC HYPERCARBIC RESPIRATORY FAILURE Physical Exam Vital Signs: Temp Pulse Resp BP Pulse Ox 98.3 F 57 L 21 H 129/39 H 100 05/04/18 07:25 05/04/18 12:44 05/04/18 13:00 05/04/18 07:25 05/04/18 12:44 Intake & Output 05/03/18 05/04/18 05/05/18 06:59 06:59 06:59 Intake Total 877 924 474 Output Total 2175 1275 200 Balance -1298 -351 274 General appearance: PRESENT: no acute distress Head exam: PRESENT: atraumatic Mouth exam: PRESENT: moist Respiratory exam: PRESENT: wheezes Cardiovascular exam: PRESENT: RRR. ABSENT: diastolic murmur, rubs, systolic murmur GI/Abdominal exam: PRESENT: normal bowel sounds, soft. ABSENT: distended, guarding, mass, organolmegaly, rebound, tenderness Neurological exam: PRESENT: alert Results Laboratory Results: 05/02/18 04:35 05/03/18 04:49 05/04/18 11:05 Carbonic Acid 2.82 H HCO3/H2CO3 Ratio 16:1 ABG pH 7.30 L ABG pCO2 93.8 H* ABG pO2 80.4 ABG HCO3 45.5 H ABG O2 Saturation 93.9 L ABG Base Excess 15.6 FiO2 2L 04/30/18 04/30/18 04/30/18 06:36 06:36 12:36 Creatine Kinase 70 66 CK-MB (CK-2) 1.83 Troponin I 0.015 04/30/18 04/30/18 04/30/18 12:36 18:28 18:28 Creatine Kinase 77 CK-MB (CK-2) 2.76 5.10 H Troponin I 0.068 0.832 Impressions: Chest X-Ray 04/29/18 15:39 IMPRESSION: Vascular congestion. Probable left effusion. Assessment & Plan - Diagnosis (1) Hyperkalemia Is this a current diagnosis for this admission?: Yes Plan: Resolved (2) Chest pain Qualifiers: Chest pain type: other chest pain Qualified Code(s): R07.89 - Other chest pain; R07.8 - Other chest pain Is this a current diagnosis for this admission?: Yes Plan: Has resolved after she has been started on Nitropaste. (3) Acute and chronic respiratory failure with hypercapnia Is this a current diagnosis for this admission?: Yes Plan: Continue current regimen (4) COPD exacerbation Is this a current diagnosis for this admission?: Yes Plan: Patient has been started on Solu-Medrol, DuoNeb, Spiriva and supplemental oxygen. (5) Hypothyroidism Qualifiers: Hypothyroidism type: acquired Qualified Code(s): E03.9 - Hypothyroidism, unspecified Is this a current diagnosis for this admission?: Yes Plan: Continue her home Synthroid (6) Type 2 diabetes mellitus Is this a current diagnosis for this admission?: Yes Plan: Continue her home metformin and put her on sliding scale. (7) Coronary artery disease Qualifiers: Coronary Disease-Associated Artery/Lesion type: [place] artery Is this a current diagnosis for this admission?: Yes Plan: This post stent placement 2. Currently patient does not have angina. And I will continue her home medication. (8) Morbid obesity with BMI of 45.0-49.9, adult Is this a current diagnosis for this admission?: Yes Plan: I think it is very difficult for this patient to lose weight since she is bed and wheelchair bound.
[2018-05-04] MEDS: MONTELUKAST SODIUM 10 MG TABLET PO SCH (23:07)
[2018-05-04] MEDS: ATORVASTATIN CALCIUM 40 MG TABLET PO SCH (23:08)
[2018-05-05] MEDS: LEVALBUTEROL HCL NEB 1.25 MG/3 ML AMPUL NEB SCH ×6 (00:24→19:57)
[2018-05-05] MEDS ORDERED: CALCIUM CARBONATE 500 MG TAB.CHEW PO ONE (04:30)
[2018-05-05 05:08] LABS: CREATINE KINASE MB 1.11 ng/mL (<4.55); TROPONIN I 0.119 ng/mL
[2018-05-05] MEDS: HEPARIN SOD (PORCINE) 5,000 UNIT/ML 1 ML SYRINGE SUBCUT SCH ×3 (06:49→22:11)
[2018-05-05] MEDS: LANSOPRAZOLE 30 MG TAB.RAP.DR PO SCH (06:49)
[2018-05-05] MEDS: ACETYLCYSTEINE 20% SOLN 800 MG/4 ML VIAL.NEB NEB SCH ×2 (08:19→19:57)
[2018-05-05] MEDS: GLIPIZIDE 10 MG TABLET PO SCH (08:46)
[2018-05-05] MEDS: METFORMIN HCL 500 MG TABLET PO SCH ×2 (08:46→16:17)
[2018-05-05] MEDS: INSULIN LISPRO 100 UNIT/ML 3 ML VIAL SUBCUT PRN ×4 (08:46→22:12)
[2018-05-05] MEDS: CLOPIDOGREL BISULFATE 75 MG TABLET PO SCH (11:15)
[2018-05-05] MEDS: ISOSORBIDE MONONITRATE 30 MG TAB.ER.24H PO SCH (11:15)
[2018-05-05] MEDS: PREDNISONE 20 MG TABLET PO SCH (11:15)
[2018-05-05] MEDS: NITROGLYCERIN 2% OINTMENT 1 GM PACKET TP SCH ×2 (11:15→22:13)
[2018-05-05] MEDS: LORATADINE 10 MG TABLET PO SCH (11:15)
[2018-05-05] MEDS: CALCIUM CARBONATE 250 MG/VITAMIN D3 125 UNIT TABLET PO SCH (11:15)
[2018-05-05] MEDS: TIOTROPIUM BROMIDE DPI 5 CAP/KIT (18 MCG/CAP) IH SCH (11:15)
[2018-05-05] MEDS: METOPROLOL SUCCINATE 25 MG TAB.SR.24H PO SCH (11:15)
[2018-05-05] MEDS: LIOTHYRONINE SODIUM 5 MCG TABLET PO SCH (11:15)
[2018-05-05] MEDS: AZITHROMYCIN 250 MG TABLET PO SCH (11:15)
[2018-05-05] MEDS: MAGNESIUM OXIDE 400 MG TABLET PO SCH ×3 (11:15→18:13)
[2018-05-05] MEDS: FAMOTIDINE 20 MG TABLET PO SCH ×2 (11:15→22:13)
[2018-05-05] MEDS: POLYETHYLENE GLYCOL 3350 POWDER 17 GM/1 PACKET PO SCH (11:15)
[2018-05-05] MEDS: BUDESONIDE/FORMOTEROL 160-4.5 MCG 60 PUFF/6 GM MDI IH SCH ×2 (11:15→22:15)
[2018-05-05] MEDS: ASPIRIN 81 MG TABLET, ENT COATED PO SCH (11:15)
[2018-05-05] MEDS: TERBINAFINE HCL 250 MG TABLET PO SCH (11:15)
[2018-05-05] MEDS: DOCUSATE SODIUM 100 MG CAPSULE PO SCH (11:15)
[2018-05-05] MEDS: FUROSEMIDE 40 MG TABLET PO SCH (11:15)
[2018-05-05] MEDS ORDERED: GLUCAGON,HUMAN RECOMB 1 MG INJ IM PRN (15:05)
[2018-05-05] MEDS ORDERED: DEXTROSE 40% GEL 15 GM TUBE PO PRN ×2 (15:05)
[2018-05-05] MEDS ORDERED: DEXTROSE 50%-WATER 25 GM/50 ML DISP.SYRIN IV PRN ×2 (15:05)
--- NOTE | 2018-05-05 15:07 | PDOC PROGRESS REPORT ---
Subjective Progress Note for:: 05/05/18 Subjective:: ALBERTO DIAL is a 73 year old female patient with past medical history of CAD status post stent placement 2, CHF , hyperlipidemia, hypertension, COPD, type 2 diabetes mellitus, hypothyroidism, morbid obesity and history of polio affecting her bilateral lower extremity worse on the left side wheelchair-bound, history of remote smoking presented to ED complaining of shortness of breath, congestion and nonproductive cough. At baseline patient is oxygen dependent and she has been also using BiPAP. Overnight patient had an episode of noncardiac chest pain and EKG and troponin was done which was within normal limits. Patient believes her chest pain might have been due to her underlying condition. No acute events overnight. Complaining of congestion however she denies any shortness of breath using overnight BiPAP. Denies any fever, chills, chest pain , nausea, vomiting, constipation, diarrhea or any urinary symptoms. Reason For Visit: ACUTE ON CHRONIC HYPERCARBIC RESPIRATORY FAILURE Physical Exam Vital Signs: Temp Pulse Resp BP Pulse Ox 97.4 F 61 22 H 132/42 H 91 L 05/05/18 11:43 05/05/18 11:43 05/05/18 11:43 05/05/18 11:43 05/05/18 11:43 Intake & Output 05/04/18 05/05/18 05/06/18 06:59 06:59 06:59 Intake Total 924 834 536 Output Total 1275 1800 300 Balance -351 -966 236 General appearance: PRESENT: no acute distress, obese, well-developed, well- nourished Head exam: PRESENT: atraumatic, normocephalic Eye exam: PRESENT: conjunctiva pink, EOMI, PERRLA. ABSENT: scleral icterus Ear exam: PRESENT: normal external ear exam Mouth exam: PRESENT: moist, tongue midline Neck exam: ABSENT: carotid bruit, JVD, lymphadenopathy, thyromegaly Respiratory exam: PRESENT: clear to auscultation joel. ABSENT: rales, rhonchi, wheezes Cardiovascular exam: PRESENT: RRR. ABSENT: diastolic murmur, rubs, systolic murmur Pulses: PRESENT: normal dorsalis pedis pul Vascular exam: PRESENT: normal capillary refill GI/Abdominal exam: PRESENT: normal bowel sounds, soft. ABSENT: distended, guarding, mass, organolmegaly, rebound, tenderness Rectal exam: PRESENT: deferred Extremities exam: PRESENT: full ROM. ABSENT: calf tenderness, clubbing, pedal edema Musculoskeletal exam: PRESENT: other - Bilateral lower extremity weakness due to history of polio. Neurological exam: PRESENT: alert, awake, oriented to person, oriented to place , oriented to time, oriented to situation, CN II-XII grossly intact. ABSENT: motor sensory deficit Psychiatric exam: PRESENT: appropriate affect, normal mood. ABSENT: homicidal ideation, suicidal ideation Skin exam: PRESENT: dry, intact, warm. ABSENT: cyanosis, rash Results Laboratory Results: 05/02/18 04:35 05/03/18 04:49 04/29/18 22:50 Blood Blood Culture - Final NO GROWTH IN 5 DAYS 04/29/18 21:40 Blood Blood Culture - Final NO GROWTH IN 5 DAYS 04/30/18 04/30/18 04/30/18 06:36 06:36 12:36 Creatine Kinase 70 66 CK-MB (CK-2) 1.83 Troponin I 0.015 04/30/18 04/30/18 04/30/18 12:36 18:28 18:28 Creatine Kinase 77 CK-MB (CK-2) 2.76 5.10 H Troponin I 0.068 0.832 05/05/18 05/05/18 04:27 04:27 Creatine Kinase 30 CK-MB (CK-2) 1.11 Troponin I 0.119 Impressions: Chest X-Ray 04/29/18 15:39 IMPRESSION: Vascular congestion. Probable left effusion. Assessment & Plan - Diagnosis (1) COPD exacerbation Is this a current diagnosis for this admission?: Yes Plan: Continue nebs, steroids, nightly above BiPAP. (2) Chest pain Qualifiers: Chest pain type: other chest pain Qualified Code(s): R07.89 - Other chest pain; R07.8 - Other chest pain Is this a current diagnosis for this admission?: Yes Plan: Cardiac workup negative. Continue Nitropaste. Unlikely cardiac. (3) Coronary artery disease Qualifiers: Coronary Disease-Associated Artery/Lesion type: [place] artery Is this a current diagnosis for this admission?: Yes Plan: CAD status post stent placement. Continue aspirin, Plavix, statins, beta blockers. (4) Type 2 diabetes mellitus Is this a current diagnosis for this admission?: Yes Plan: Uncontrolled likely due to an steroids for underlying COPD exacerbation. Continue sliding scale insulin. (5) Acute and chronic respiratory failure with hypercapnia Is this a current diagnosis for this admission?: Yes Plan: Nightly BiPAP. ABG tomorrow. (6) History of poliomyelitis Is this a current diagnosis for this admission?: Yes Plan: Supportive care. (7) Morbid obesity with BMI of 45.0-49.9, adult Is this a current diagnosis for this admission?: Yes Plan: Lifestyle and diet modification. Patient has underlying polio and wheelchair bound. (8) Pneumonia Qualifiers: Pneumonia type: due to unspecified organism Laterality: left Lung location: lower lobe of lung Qualified Code(s): J18.1 - Lobar pneumonia, unspecified organism Is this a current diagnosis for this admission?: Yes Plan: Not responding to macrolides. Will switch to IV levofloxacin.
[2018-05-05] MEDS ORDERED: ALBUTEROL SULFATE 0.083% NEB 2.5 MG/3 ML AMPUL NEB ONE (15:30)
[2018-05-05] MEDS ORDERED: ACETYLCYSTEINE 20% SOLN 800 MG/4 ML VIAL.NEB NEB ONE (15:30)
--- NOTE | 2018-05-05 15:33 | EKG REPORT ---
SEVERITY:- ABNORMAL ECG - SINUS RHYTHM RIGHT BUNDLE BRANCH BLOCK LVH WITH IVCD AND SECONDARY REPOL ABNRM : Confirmed by: Pebbles Small MD 05-May-2018 15:32:37
[2018-05-05] MEDS: LEVOFLOXACIN 500 MG/D5W RTU 500 MG/100 ML RTUPB IV SCH (16:18)
[2018-05-05] MEDS ORDERED: INSULIN GLARGINE,HUM.REC.ANLOG 1,000 UNIT/10 ML UNIT SUBCUT SCH (22:00)
[2018-05-05] MEDS: ATORVASTATIN CALCIUM 40 MG TABLET PO SCH (22:13)
[2018-05-05] MEDS: MONTELUKAST SODIUM 10 MG TABLET PO SCH (22:13)
[2018-05-06] MEDS: LEVALBUTEROL HCL NEB 1.25 MG/3 ML AMPUL NEB SCH ×6 (00:29→20:19)
[2018-05-06 06:00] LABS: HEMATOCRIT 28.7 % (36.0-47.0); HEMOGLOBIN 9.4 g/dL (12.0-15.5); MEAN CORPUSCULAR HGB CONC 32.5 g/dL (32.0-36.0); MEAN CORPUSCULAR VOLUME 86 fl (80-97); PLATELET COUNT 277 10^3/uL (150-450); RED BLOOD COUNT 3.34 10^6/uL (3.72-5.28); RED CELL DISTRIBUTION WIDTH 16.8 % (11.5-14.0); WHITE BLOOD COUNT 9.6 10^3/uL (4.0-10.5)
[2018-05-06] MEDS: HEPARIN SOD (PORCINE) 5,000 UNIT/ML 1 ML SYRINGE SUBCUT SCH ×3 (06:06→22:27)
[2018-05-06] MEDS: LANSOPRAZOLE 30 MG TAB.RAP.DR PO SCH (06:06)
[2018-05-06 06:18] LABS: ABSOLUTE LYMPHOCYTES# (MANUAL) 1.2 10^3/uL (0.5-4.7); ABSOLUTE NEUTROPHILS# (MANUAL) 7.4 10^3/uL (1.7-8.2); ANISOCYTOSIS 1+; BASOPHILS % (MANUAL) 0 % (0-2); EOSINOPHILS % (MANUAL) 0 % (0-6); LYMPHOCYTES % (MANUAL) 13 % (13-45); MONOCYTES % (MANUAL) 10 % (3-13); PLATELET COMMENT ADEQUATE; SEGMENTED NEUTROPHILS % (MAN) 77 % (42-78); TOTAL CELLS COUNTED 100; TOXIC GRANULATION SLIGHT
[2018-05-06 06:25] LABS: ALANINE AMINOTRANSFERASE 30 U/L (9-52); ALBUMIN 3.1 g/dL (3.5-5.0); ALKALINE PHOSPHATASE 52 U/L (38-126); ASPARTATE AMINO TRANSFERASE 15 U/L (14-36); BILIRUBIN,DIRECT 0.4 mg/dL (0.0-0.4); BILIRUBIN,TOTAL 0.4 mg/dL (0.2-1.3); BLOOD UREA NITROGEN 40 mg/dL (7-20); CALCIUM 8.4 mg/dL (8.4-10.2); CHLORIDE 89 mmol/L (98-107); GLUCOSE 110 mg/dL (75-110); POTASSIUM 4.6 mmol/L (3.6-5.0); SODIUM 139.8 mmol/L (137-145); TOTAL PROTEIN 5.7 g/dL (6.3-8.2)
[2018-05-06 06:48] LABS: ANION GAP 3 (5-19); CARBON DIOXIDE 48 mmol/L (22-30)
[2018-05-06] MEDS: MORPHINE SULFATE 10 MG/ML INJ INJ PRN ×6 (07:30→18:00)
[2018-05-06] MEDS: ACETYLCYSTEINE 20% SOLN 800 MG/4 ML VIAL.NEB NEB SCH ×2 (07:59→20:19)
[2018-05-06] MEDS: PREDNISONE 20 MG TABLET PO SCH (10:33)
[2018-05-06] MEDS: METOPROLOL SUCCINATE 25 MG TAB.SR.24H PO SCH (10:35)
[2018-05-06] MEDS: ISOSORBIDE MONONITRATE 30 MG TAB.ER.24H PO SCH (10:35)
[2018-05-06] MEDS: LORATADINE 10 MG TABLET PO SCH (10:35)
[2018-05-06] MEDS: FAMOTIDINE 20 MG TABLET PO SCH ×2 (10:35→22:27)
[2018-05-06] MEDS: CALCIUM CARBONATE 250 MG/VITAMIN D3 125 UNIT TABLET PO SCH (10:35)
[2018-05-06] MEDS: CLOPIDOGREL BISULFATE 75 MG TABLET PO SCH (10:35)
[2018-05-06] MEDS: ASPIRIN 81 MG TABLET, ENT COATED PO SCH (10:35)
[2018-05-06] MEDS: FUROSEMIDE 40 MG TABLET PO SCH (10:36)
[2018-05-06] MEDS: METFORMIN HCL 500 MG TABLET PO SCH ×2 (10:37→18:41)
[2018-05-06] MEDS: LEVOFLOXACIN 500 MG/D5W RTU 500 MG/100 ML RTUPB IV SCH (10:37)
[2018-05-06] MEDS: MAGNESIUM OXIDE 400 MG TABLET PO SCH ×3 (10:37→18:40)
[2018-05-06] MEDS: GLIPIZIDE 10 MG TABLET PO SCH (10:37)
[2018-05-06] MEDS: POLYETHYLENE GLYCOL 3350 POWDER 17 GM/1 PACKET PO SCH (10:38)
[2018-05-06] MEDS: NITROGLYCERIN 2% OINTMENT 1 GM PACKET TP SCH ×2 (10:38→22:26)
[2018-05-06] MEDS: DOCUSATE SODIUM 100 MG CAPSULE PO SCH (10:38)
[2018-05-06] MEDS: TIOTROPIUM BROMIDE DPI 5 CAP/KIT (18 MCG/CAP) IH SCH (10:40)
[2018-05-06] MEDS: BUDESONIDE/FORMOTEROL 160-4.5 MCG 60 PUFF/6 GM MDI IH SCH ×2 (10:40→22:26)
[2018-05-06] MEDS: TERBINAFINE HCL 250 MG TABLET PO SCH (10:42)
[2018-05-06] MEDS: LIOTHYRONINE SODIUM 5 MCG TABLET PO SCH (12:33)
[2018-05-06] MEDS ORDERED: INSULIN GLARGINE,HUM.REC.ANLOG 300 UNIT/3 ML INSULN.PEN SUBCUT SCH (22:00)
[2018-05-06] MEDS ORDERED: INSULIN GLARGINE,HUM.REC.ANLOG 1,000 UNIT/10 ML UNIT SUBCUT SCH (22:00)
[2018-05-06] MEDS: MONTELUKAST SODIUM 10 MG TABLET PO SCH (22:27)
[2018-05-06] MEDS: ATORVASTATIN CALCIUM 40 MG TABLET PO SCH (22:27)
[2018-05-06] MEDS: INSULIN LISPRO 100 UNIT/ML 3 ML VIAL SUBCUT PRN (22:27)
[2018-05-07] MEDS: LEVALBUTEROL HCL NEB 1.25 MG/3 ML AMPUL NEB SCH ×5 (00:57→16:06)
[2018-05-07] MEDS: HEPARIN SOD (PORCINE) 5,000 UNIT/ML 1 ML SYRINGE SUBCUT SCH ×2 (05:35→14:45)
[2018-05-07] MEDS: LANSOPRAZOLE 30 MG TAB.RAP.DR PO SCH (05:36)
[2018-05-07 05:43] LABS: ALANINE AMINOTRANSFERASE 25 U/L (9-52); ALBUMIN 2.8 g/dL (3.5-5.0); ALKALINE PHOSPHATASE 49 U/L (38-126); ASPARTATE AMINO TRANSFERASE 15 U/L (14-36); BILIRUBIN,DIRECT 0.2 mg/dL (0.0-0.4); BILIRUBIN,TOTAL 0.3 mg/dL (0.2-1.3); BLOOD UREA NITROGEN 39 mg/dL (7-20); CALCIUM 8.4 mg/dL (8.4-10.2); CHLORIDE 89 mmol/L (98-107); GLUCOSE 148 mg/dL (75-110); HEMATOCRIT 25.7 % (36.0-47.0); HEMOGLOBIN 8.3 g/dL (12.0-15.5); MEAN CORPUSCULAR HEMOGLOBIN 28.1 pg (27.0-33.4); MEAN CORPUSCULAR HGB CONC 32.5 g/dL (32.0-36.0); MEAN CORPUSCULAR VOLUME 87 fl (80-97); PLATELET COUNT 269 10^3/uL (150-450); POTASSIUM 4.7 mmol/L (3.6-5.0); RED BLOOD COUNT 2.97 10^6/uL (3.72-5.28); RED CELL DISTRIBUTION WIDTH 16.9 % (11.5-14.0); SODIUM 137.8 mmol/L (137-145); TOTAL PROTEIN 5.3 g/dL (6.3-8.2); WHITE BLOOD COUNT 9.4 10^3/uL (4.0-10.5)
[2018-05-07 05:50] LABS: ANION GAP 5 (5-19)
[2018-05-07 05:52] LABS: CARBON DIOXIDE 44 mmol/L (22-30)
[2018-05-07 06:05] LABS: ABSOLUTE LYMPHOCYTES# (MANUAL) 1.3 10^3/uL (0.5-4.7); ABSOLUTE MONOCYTES # (MANUAL) 0.6 10^3/uL (0.1-1.4); ABSOLUTE NEUTROPHILS# (MANUAL) 7.5 10^3/uL (1.7-8.2); BASOPHILS % (MANUAL) 0 % (0-2); EOSINOPHILS % (MANUAL) 0 % (0-6); LYMPHOCYTES % (MANUAL) 14 % (13-45); MONOCYTES % (MANUAL) 6 % (3-13); SEGMENTED NEUTROPHILS % (MAN) 80 % (42-78); TOTAL CELLS COUNTED 100
[2018-05-07 06:06] LABS: ANISOCYTOSIS 1+; PLATELET COMMENT ADEQUATE; PLATELET LARGE PRESENT; POLYCHROMASIA SLIGHT
[2018-05-07] MEDS: MORPHINE SULFATE 10 MG/ML INJ INJ PRN (07:10)
[2018-05-07] MEDS: METFORMIN HCL 500 MG TABLET PO SCH (07:23)
[2018-05-07] MEDS: GLIPIZIDE 10 MG TABLET PO SCH (07:23)
[2018-05-07] MEDS: ACETYLCYSTEINE 20% SOLN 800 MG/4 ML VIAL.NEB NEB SCH (07:59)
[2018-05-07] MEDS: MORPHINE SULFATE 10 MG/ML INJ IV PRN ×5 (09:00→16:35)
[2018-05-07] MEDS ORDERED: MORPHINE SULFATE 10 MG/ML INJ INJ PRN (09:30)
[2018-05-07] MEDS: LEVOFLOXACIN 500 MG/D5W RTU 500 MG/100 ML RTUPB IV SCH (09:44)
[2018-05-07] MEDS: TIOTROPIUM BROMIDE DPI 5 CAP/KIT (18 MCG/CAP) IH SCH (09:45)
[2018-05-07] MEDS: MAGNESIUM OXIDE 400 MG TABLET PO SCH (09:45)
[2018-05-07] MEDS: LORATADINE 10 MG TABLET PO SCH (09:45)
[2018-05-07] MEDS: BUDESONIDE/FORMOTEROL 160-4.5 MCG 60 PUFF/6 GM MDI IH SCH (09:45)
[2018-05-07] MEDS: ASPIRIN 81 MG TABLET, ENT COATED PO SCH (09:45)
[2018-05-07] MEDS: CLOPIDOGREL BISULFATE 75 MG TABLET PO SCH (09:45)
[2018-05-07] MEDS: ISOSORBIDE MONONITRATE 30 MG TAB.ER.24H PO SCH (09:45)
[2018-05-07] MEDS: FAMOTIDINE 20 MG TABLET PO SCH (09:45)
[2018-05-07] MEDS: CALCIUM CARBONATE 250 MG/VITAMIN D3 125 UNIT TABLET PO SCH (09:45)
[2018-05-07] MEDS: FUROSEMIDE 40 MG TABLET PO SCH (09:45)
[2018-05-07] MEDS: POLYETHYLENE GLYCOL 3350 POWDER 17 GM/1 PACKET PO SCH (09:46)
[2018-05-07] MEDS: PREDNISONE 20 MG TABLET PO SCH (09:46)
[2018-05-07] MEDS: DOCUSATE SODIUM 100 MG CAPSULE PO SCH (09:46)
[2018-05-07] MEDS: NITROGLYCERIN 2% OINTMENT 1 GM PACKET TP SCH (09:46)
[2018-05-07] MEDS: METOPROLOL SUCCINATE 25 MG TAB.SR.24H PO SCH (09:46)
[2018-05-07] MEDS ORDERED: TERBINAFINE HCL 250 MG TABLET PO ONE (12:00)
[2018-05-07] MEDS: LIOTHYRONINE SODIUM 5 MCG TABLET PO SCH (12:45)
[2018-05-07] MEDS: TERBINAFINE HCL 250 MG TABLET PO SCH (12:45)
[2018-05-07] MEDS ORDERED: MAGNESIUM OXIDE 400 MG TABLET PO SCH (14:00)
[2018-05-07 16:13] VITALS: BP 119/40
[2018-05-07] MEDS ORDERED: CALCIUM CARBONATE 250 MG/VITAMIN D3 125 UNIT TABLET PO SCH (17:00)
--- NOTE | 2018-05-07 18:05 | PDOC DISCHARGE SUMMARY ---
General - Admit/Disc Date/PCP Admission Date/Primary Care Provider: 04/29/18 19:54 Discharge Date: 05/07/18 - Discharge Diagnosis (1) Acute and chronic respiratory failure with hypercapnia Is this a current diagnosis for this admission?: Yes Summary: Para went off and she could use her oxygen or her BiPAP at night for couple of days and she went up in the hospital. Back on her usual stuff and she is back to baseline. (2) Morbid obesity with alveolar hypoventilation Is this a current diagnosis for this admission?: Yes Summary: Encourage lifestyle modification and daily exercise (3) Morbid obesity with BMI of 50.0-59.9, adult Is this a current diagnosis for this admission?: Yes Summary: Encourage lifestyle modification and daily exercise - Additional Information Resuscitation Status: Do Not Resuscitate Discharge Diet: Other (Comments) Discharge Activity: Activity As Tolerated, Balance Activity w/Rest Prescriptions: Prednisone [Deltasone 20 mg Tablet] 60 mg PO DAILY #9 tablet Home Medications: Aspirin [Ecotrin 81 mg EC Tablet] 81 mg PO DAILY 09/23/17 Budesonide/Formoterol Fumarate [Symbicort 160-4.5 Mcg Inhaler] 2 puff IH Q12 02/02 Calcium Carbonate/Vitamin D3 [Calcium 500-Vit D3 200 Caplet] 1 tab PO DAILY 02/02 Clopidogrel Bisulfate [Plavix 75 mg Tablet] 75 mg PO DAILY 09/23/17 Fexofenadine HCl [Rin] 180 mg PO DAILY 09/23/17 Liothyronine Sodium [Cytomel] 10 mcg PO NOON 09/23/17 Montelukast Sodium [Singulair 10 mg Tablet] 10 mg PO QHS 09/23/17 Omeprazole 40 mg PO Q6AM 09/23/17 Potassium Chloride [Klor-Con 10 Meq Capsule ER] 20 meq PO DAILY 09/23/17 Metformin HCl [Glucophage 500 mg Tablet] 500 mg PO BIDBS 10/17/17 Nitroglycerin [Nitrostat 0.4 mg (1/150 Gr) Tabs 25/Bottle] 1 tab SL Q5MP PRN Furosemide [Lasix 40 mg Tablet] 40 mg PO BID #60 tablet 11/18/17 Magnesium Oxide [Mag-Ox 400 mg Tablet] 800 mg PO TID #90 tablet 11/18/17 Metoprolol Succinate [Toprol Xl 25 mg Tab.sr] 25 mg PO DAILY #30 tab.sr.24h 11/02 Atorvastatin Calcium [Lipitor 40 mg Tablet] 40 mg PO QHS 04/29/18 Diclofenac Sodium [Voltaren] 2 gm TP TIDP PRN 04/29/18 Glipizide [Glucotrol 10 mg Tablet] 10 mg PO [id number] 04/29/18 Polyethylene Glycol 3350 [Miralax Powder 17 gm/Packet] 1 packet PO DAILY Terbinafine HCl [Lamisil 250 mg Tablet] 250 mg PO DAILY 04/29/18 Prednisone [Deltasone 20 mg Tablet] 60 mg PO DAILY #9 tablet 05/07/18 History of Present Illness History of Present Illness: ALBERTO DIAL is a 73 year old female patient with multiple comorbidities including coronary artery disease status post stent placement twice, diastolic congestive heart failure, hyperlipidemia, hypertension, COPD, type 2 diabetes mellitus, hypothyroidism, morbid obesity and history of polio and wheelchair-bound, presents with chief complaint of shortness of breath and difficulty breathing. At baseline patient is oxygen dependent and she has been also using BiPAP. Patient reports this despite using her regular nebulizer her shortness of breath gets worse. She is also dry hacking cough. No fever, chills, chest pain, palpitation, diaphoresis, nausea, vomiting, abdominal pain or change in bowel habits. Hospital Course Hospital Course: After she got into the hospital she changed her story and said that the power had gone out she could use her oxygen or her BiPAP which she uses at night for a couple of days. She says she tried to wait it out for the power to come on but never did. She says she started having worsening shortness of breath and so she came to the hospital. She was put back on her usual medications. She was treated initially with steroids for a few days but the wheezing stopped pretty quickly so the steroids were stopped. Her power came back on yesterday and so she is being discharged today in stable condition. Physical Exam Vital Signs: Temp Pulse Resp BP Pulse Ox 98.7 F 62 24 H 119/40 L 100 05/07/18 16:00 05/07/18 16:06 05/07/18 16:06 05/07/18 16:00 05/07/18 16:06 Intake & Output 05/06/18 05/07/18 05/08/18 06:59 06:59 06:59 Intake Total 1336 1278 230 Output Total 1025 0358 350 Balance -686 -947 -120 General appearance: PRESENT: no acute distress, cooperative, disheveled, morbidly obese Respiratory exam: PRESENT: clear to auscultation joel, decreased breath sounds, symmetrical, unlabored. ABSENT: accessory muscle use, crackles, prolonged expiratory phas, rales, rhonchi, stridor, tachypnea, wheezes Cardiovascular exam: PRESENT: RRR, +S1, +S2, systolic murmur - 3 out of 6. ABSENT: diastolic murmur GI/Abdominal exam: PRESENT: normal bowel sounds, soft. ABSENT: guarding, rebound, tenderness Extremities exam: ABSENT: joint swelling, pedal edema Musculoskeletal exam: ABSENT: deformity Neurological exam: PRESENT: alert, awake, oriented to person, oriented to place , oriented to time Psychiatric exam: PRESENT: appropriate affect, normal mood Skin exam: PRESENT: dry, warm Results Laboratory Results: 05/07/18 05:04 05/07/18 05:04 05/07/18 05/07/18 05:04 05:04 WBC 9.4 RBC 2.97 L Hgb 8.3 L Hct 25.7 L MCV 87 MCH 28.1 MCHC 32.5 RDW 16.9 H Plt Count 269 Seg Neutrophils % Not Reportable Lymphocytes % Not Reportable Monocytes % Not Reportable Eosinophils % Not Reportable Basophils % Not Reportable Absolute Neutrophils Not Reportable Absolute Lymphocytes Not Reportable Absolute Monocytes Not Reportable Absolute Eosinophils Not Reportable Absolute Basophils Not Reportable Sodium 137.8 Potassium 4.7 Chloride 89 L Carbon Dioxide 44 H* Anion Gap 5 BUN 39 H Creatinine 0.70 Est GFR ( Amer) > 60 Est GFR (Non-Af Amer) > 60 Glucose 148 H Calcium 8.4 Total Bilirubin 0.3 AST 15 ALT 25 Alkaline Phosphatase 49 Total Protein 5.3 L Albumin 2.8 L 04/30/18 04/30/18 04/30/18 06:36 06:36 12:36 Creatine Kinase 70 66 CK-MB (CK-2) 1.83 Troponin I 0.015 04/30/18 04/30/18 04/30/18 12:36 18:28 18:28 Creatine Kinase 77 CK-MB (CK-2) 2.76 5.10 H Troponin I 0.068 0.832 05/05/18 05/05/18 04:27 04:27 Creatine Kinase 30 CK-MB (CK-2) 1.11 Troponin I 0.119 Impressions: Chest X-Ray 04/29/18 15:39 IMPRESSION: Vascular congestion. Probable left effusion. Qualifiers - * PATIENT BEING DISCHARGED WITH ANY OF THE FOLLOWING DIAGNOSIS: No
[2018-05-08] MEDS ORDERED: LEVOFLOXACIN 500 MG TABLET PO SCH (10:00)
[2018-05-08] MEDS ORDERED: CALCIUM CARBONATE 250 MG/VITAMIN D3 125 UNIT TABLET PO SCH (12:00)
== END 2018-05-07 16:48 | disposition home health service (06) | DRG 189 ==
LOC: ER 15:09 → EH 19:54 → 3W 21:55
PROVIDERS: ADMIT Internal Medicine; ATTEND Internal Medicine
DX: J96.22 Acute and chronic respiratory failure with hypercapnia (principal); J18.9 Pneumonia, unspecified organism; Z99.12 Encounter for respirator [ventilator] dependence during power failure; Z66 Do not resuscitate; I50.32 Chronic diastolic (congestive) heart failure; Z68.43 Body mass index [BMI] 50.0-59.9, adult; J44.1 Chronic obstructive pulmonary disease with (acute) exacerbation; E66.2 Morbid (severe) obesity with alveolar hypoventilation; J45.998 Other asthma; I11.0 Hypertensive heart disease with heart failure; I25.10 Atherosclerotic heart disease of native coronary artery without angina pectoris; E11.8 Type 2 diabetes mellitus with unspecified complications; K21.9 Gastro-esophageal reflux disease without esophagitis; R07.89 Other chest pain; E87.5 Hyperkalemia; I25.2 Old myocardial infarction; Z95.5 Presence of coronary angioplasty implant and graft; Z87.891 Personal history of nicotine dependence; Z99.81 Dependence on supplemental oxygen; Z86.12 Personal history of poliomyelitis; Z99.3 Dependence on wheelchair; Z79.01 Long term (current) use of anticoagulants; Z79.84 Long term (current) use of oral hypoglycemic drugs; Z79.82 Long term (current) use of aspirin; Z79.51 Long term (current) use of inhaled steroids; Z79.899 Other long term (current) drug therapy
CPT/HCPCS: 36415; 36600; 71045; 80048; 80053; 81001; 82550; 82553; 82803; 82962; 83735; 83880; 84484; 85025; 87040; 93005; 93010; 94640; 94660; 96374; 99285; J0360; J0456; J1644; J1815; J1940; J1956; J2270; J2920; J2930; J3490; J7060; J7512; J7620

== ENCOUNTER 2018-09-24 11:49 | Inpatient (IN) | payer MEDICARE ==
[2018-09-24] MEDS ORDERED: IPRATROPIUM/ALBUTEROL 0.5-2.5 MG/3 ML AMPUL NEB ONE (12:02)
[2018-09-24 12:15] LABS: HEMATOCRIT 34.1 % (36.0-47.0); HEMOGLOBIN 10.7 g/dL (12.0-15.5); MEAN CORPUSCULAR HEMOGLOBIN 26.9 pg (27.0-33.4); MEAN CORPUSCULAR HGB CONC 31.4 g/dL (32.0-36.0); MEAN CORPUSCULAR VOLUME 86 fl (80-97); RED BLOOD COUNT 3.97 10^6/uL (3.72-5.28); WHITE BLOOD COUNT 23.2 10^3/uL (4.0-10.5)
[2018-09-24 12:16] LABS: ARTERIAL BLOOD BASE EXCESS 8.7 mmol/L; ARTERIAL BLOOD H2CO3 4.12 mmol/L (1.05-1.35); ARTERIAL BLOOD HCO3 42.1 mmol/L (20-24); ARTERIAL BLOOD O2 SATURATION 89.9 % (94-98); ARTERIAL BLOOD PO2 81.4 mmHg (80-100); ARTERIAL BLOOD TOTAL CO2 46.3 mmol/L (21-25)
[2018-09-24 12:17] LABS: ARTERIAL BLOOD FIO2 70%; VENOUS BLOOD BASE EXCESS 11.8 mmol/L; VENOUS BLOOD HCO3 45.6 mmol/L (20-32)
[2018-09-24 12:22] LABS: ARTERIAL BLOOD PH 7.11 (7.35-7.45); INTERNATIONAL RATION (INR) 0.91; PROTHROMBIN TIME 12.7 SEC (11.4-15.4)
[2018-09-24 12:23] LABS: ARTERIAL BLOOD PCO2 136.8 mmHg (35-45); VENOUS BLOOD PCO2 147.3 mmHg (35-63); VENOUS BLOOD PH 7.11 (7.30-7.42)
--- NOTE | 2018-09-24 12:29 | RADIOLOGY REPORT (SQ) ---
EXAM DESCRIPTION: CHEST SINGLE VIEW COMPLETED DATE/TIME: 09/24/2018 12:13 pm REASON FOR STUDY: hypoxia, in BiPAP COMPARISON: 12/03/2017 EXAM PARAMETERS: NUMBER OF VIEWS: One view. TECHNIQUE: Single frontal radiographic view of the chest acquired. RADIATION DOSE: NA LIMITATIONS: None. FINDINGS: LUNGS AND PLEURA: Extensive infiltrate likely pleural effusion at the left base. Moderate right basilar infiltrate. Worrisome for aspiration complex. MEDIASTINUM AND HILAR STRUCTURES: No masses. Contour normal. HEART AND VASCULAR STRUCTURES: Heart enlarged. Mild vascular congestion. BONES: Marked scoliosis. HARDWARE: None in the chest. OTHER: No other significant finding. IMPRESSION: Marked left and right lower lobe pneumonia with left pleural effusion. Question aspirat ion complex. Vascular congestion. TECHNICAL DOCUMENTATION: JOB ID: [id number] [employer]- All Rights Reserved Reading location - IP/workstation name: [email or web address]
[2018-09-24 12:30] LABS: ABSOLUTE LYMPHOCYTES# (MANUAL) 3.9 10^3/uL (0.5-4.7); ABSOLUTE MONOCYTES # (MANUAL) 0.7 10^3/uL (0.1-1.4); ABSOLUTE NEUTROPHILS# (MANUAL) 18.3 10^3/uL (1.7-8.2); BAND NEUTROPHILS % (MANUAL) 1 % (3-5); BASOPHILS % (MANUAL) 1 % (0-2); EOSINOPHILS % (MANUAL) 0 % (0-6); LYMPHOCYTES % (MANUAL) 16 % (13-45); MONOCYTES % (MANUAL) 3 % (3-13); SEGMENTED NEUTROPHILS % (MAN) 78 % (42-78); TOTAL CELLS COUNTED 100
[2018-09-24 12:32] LABS: POLYCHROMASIA 1+; TOXIC GRANULATION 1+
[2018-09-24 12:33] LABS: ANISOCYTOSIS 1+; PLATELET CLUMPS PRESENT; PLATELET COUNT 399 10^3/uL (150-450)
[2018-09-24 12:34] LABS: ALANINE AMINOTRANSFERASE 41 U/L (9-52); ALBUMIN 4.1 g/dL (3.5-5.0); ALKALINE PHOSPHATASE 88 U/L (38-126); ANION GAP 10 (5-19); ASPARTATE AMINO TRANSFERASE 46 U/L (14-36); BILIRUBIN,DIRECT 0.4 mg/dL (0.0-0.4); BILIRUBIN,TOTAL 0.5 mg/dL (0.2-1.3); BLOOD UREA NITROGEN 28 mg/dL (7-20); CALCIUM 8.6 mg/dL (8.4-10.2); CARBON DIOXIDE 34 mmol/L (22-30); CHLORIDE 97 mmol/L (98-107); CREATINE KINASE 96 U/L (30-135); GLUCOSE 319 mg/dL (75-110); POTASSIUM 4.8 mmol/L (3.6-5.0); SODIUM 140.7 mmol/L (137-145); TOTAL PROTEIN 6.7 g/dL (6.3-8.2)
[2018-09-24 12:37] LABS: PLATELET COMMENT ADEQUATE
[2018-09-24 12:45] LABS: CREATINE KINASE MB 2.12 ng/mL (<4.55)
[2018-09-24 12:51] LABS: TROPONIN I < 0.012 ng/mL
[2018-09-24] MEDS ORDERED: METHYLPREDNISOLONE INJ 125 MG/2 ML SDV IV ONE (14:49)
[2018-09-24] MEDS ORDERED: CEFEPIME 2 GM/D5W RTU 2 GM/50 ML RTUPB IV SCH (15:00)
[2018-09-24] MEDS ORDERED: LEVOFLOXACIN 750 MG/D5W RTU 750 MG/150 ML RTUPB IV SCH (15:00)
[2018-09-24 15:02] LABS: APPEARANCE,URINE CLEAR; BILIRUBIN,URINE NEGATIVE (NEGATIVE); COLOR,URINE STRAW; GLUCOSE, URINE 50 mg/dL (NEGATIVE); KETONES,URINE NEGATIVE (NEGATIVE); LEUKOCYTE ESTERASE,URINE NEGATIVE (NEGATIVE); NITRITE,URINE NEGATIVE (NEGATIVE); PROTEIN,URINE NEGATIVE (NEGATIVE); URINE SPECIFIC GRAVITY 1.009; UROBILINOGEN,URINE NEGATIVE mg/dL (<2.0)
--- NOTE | 2018-09-24 15:08 | ER Document Report ---
Entered by BERNARDA PURCELL SCRIBE 09/24/18 1200 Acting as scribe for:XIMENA KOVACS DO ED Respiratory Problem - General Stated Complaint: RESPIRATORY DISTRESS Mode of Arrival: Medic Information source: Emergency Med Personnel Notes: 73-year-old female with multiple comorbidities including CHF and COPD who presents to the emergency department today in severe respiratory distress. According to EMS, the home health [employer] at the patient's house stated that the patient has been short of breath for the last two days. The patient's home health nurse gave the patient two A&A breathing treatments with minimal change in her respiratory status. EMS did place the patient on CPAP with minimal change in her respiratory status, EMS states they asked her if she wanted to be intubated and she said no. According to the patient's admission records from this facility on 04/29/2018 she was made a DNR/DNI. TRAVEL OUTSIDE OF THE [place] IN LAST 30 DAYS: No - Related Data Allergies/Adverse Reactions: hydromorphone HCl [From Dilaudid] Allergy (Severe, Verified 09/24/18 17:12) Respiratory arrest codeine [Codeine] Allergy (Intermediate, Verified 09/24/18 17:12) Hallucinations Past Medical History - General Information source: Emergency Med Personnel, [facility] Records - Social History Smoking Status: Former Smoker Family History: Reviewed & Not Pertinent, DM, Hyperlipidemia, Hypertension - Past Medical History Cardiac Medical History: Reports: Hx Congestive Heart Failure - Diastolic, Hx Coronary Artery Disease, Hx Heart Attack - cardiac stents x 2, Hx Hypercholesterolemia, Hx Hypertension, Hx Heart Murmur - aortic stenosis Pulmonary Medical History: Reports: Hx Asthma, Hx Bronchitis, Hx COPD, Hx Sleep Apnea - Bipap Endocrine Medical History: Reports: Hx Diabetes Mellitus Type 2, Hx Hypothyroidism GI Medical History: Reports: Hx Gastroesophageal Reflux Disease, Hx Ulcer Musculoskeletal Medical History: Reports Hx Arthritis - generalized Skin Medical History: Reports Hx Cellulitis Psychiatric Medical History: Reports: Hx Depression Past Surgical History: Reports: Hx Appendectomy, Hx Colostomy - then reversed, Hx Hysterectomy, Hx Neurologic Surgery - spinal fusion, Hx Orthopedic Surgery - carpal tunnel, polio surgery to left leg - Immunizations Immunizations up to date: Yes Hx Diphtheria, Pertussis, Tetanus Vaccination: Yes Hx Pneumococcal Vaccination: 08/18/14 Review of Systems - Review of Systems -: Yes ROS unobtainable due to patient's medical condition Physical Exam - Vital signs Vitals: Resp Pulse Ox 21 H 64 L 09/24/18 11:52 09/24/18 11:52 - Notes Notes: PHYSICAL EXAM GENERAL: Obtunded. Severe respiratory distress. Morbidly obese. HEAD: Normocephalic, atraumatic. EYES: Pupils equal, round, and reactive to light. ENT: Oral mucosa moist, tongue midline. NECK: Trachea midline. LUNGS: Left lower lobe crackles. Decreased air movement throughout. Some wheezing bilaterally. Severe respiratory distress. On CPAP. Pulse oximetry reveals good waveform with a saturation of 55% which is hypoxic per my int erpretation. HEART: Tachycardic, regular rhythm. No murmurs, gallops, or rubs. ABD: Obese, soft, superficial bruising, no evidence of tenderness, bowel sounds present in all 4 quadrants. EXTREMITIES: No edema, radial and dorsalis pedis pulses 2/4 bilaterally. NEUROLOGICAL: Obtunded. Opens eyes to name but does not answer any questions. SKIN: Warm and diaphoretic. Pale, mild cyanosis. Course - Re-evaluation Re-evalutation: 09/24/18 14:52 Patient arrived markedly hypoxic on CPAP, approximately 55% with a good Plath on the pulse oximeter which is hypoxic per my interpretation. Patient is listed as a DNR on old records from approximately 5 months ago and she told EMS that she did not want to be intubated. She is not able to answer questions for me. We did change her to BiPAP and she had market improvement on the BiPAP, oxygen saturation went up to 95% on BiPAP 16/6 at 100% O2. We have been slowly weaning her oxygen down it is currently at 45% and she is still saturating 96% on the BiPAP. Patient is starting to slowly wake up. Workup reveals marked leukocytosis of 23.2 with hemoglobin 10.7, venous blood gas and arterial blood gas both reveal acute respiratory acidosis with hypoxic respiratory failure and hypercarbia with a pH of 7.11 and a PCO2 of 136.8, chemistries are grossly unremarkable only an elevated BUN at 28 and an elevated glucose of 319, lactic acid is normal. Troponin is unremarkable, chest x-ray shows both pulmonary vascular congestion and bilateral lower lobe infiltrates. Patient is improving and is beginning to answer questions. Patient was treated with Levaquin and cefepime as she has structural lung disease and risk for Pseudomonas. Patient was discussed with Hallie Sagastume nurse practitioner for admission and she agreed to accept the patient for admission to the IMCU. Patient will not go to ICU as she is a DNR and no escalation in the level of care would be possible. Patient is doing well on BiPAP at this time. 09/24/18 14:54 Patient reconfirms her decision to be a DNR, reconfirms her desire not to be intubated. Discussed with patient that sepsis treatment guidelines recommend that I gave her a 30 mL/kg fluid bolus. Also discussed that given her desire not to be intubated and her history of congestive heart failure and the fact that she already has signs of congestive heart failure that she is likely to suffer worsening respiratory distress should I give her 30 mL/kilo bolus. Patient offered the choice between following sepsis guidelines and taking the 30 mL/kg bolus based off of ideal body weight or foregoing that due to her already tenuous respiratory status. Patient refuses 30 mL/kg fluid bolus. - Vital Signs Vital signs: Temp Pulse Resp BP Pulse Ox 20 116/58 L 100 09/24/18 15:00 09/24/18 14:01 09/24/18 15:00 - Laboratory Result Diagrams: 09/24/18 11:55 09/24/18 11:55 Laboratory results interpreted by me: 09/24/18 09/24/18 09/24/18 11:55 11:55 11:55 WBC 23.2 H Hgb 10.7 L Hct 34.1 L MCH 26.9 L MCHC 31.4 L RDW 18.0 H Band Neutrophils % 1 L Abs Neuts (Manual) 18.3 H Carbonic Acid ABG pH ABG pCO2 ABG HCO3 ABG Total CO2 ABG O2 Saturation VBG pH 7.11 L* VBG pCO2 147.3 H* VBG HCO3 45.6 H Chloride 97 L Carbon Dioxide 34 H BUN 28 H Glucose 319 H AST 46 H NT-Pro-B Natriuret Pep Urine Glucose (UA) 09/24/18 09/24/18 09/24/18 11:55 11:55 14:41 WBC Hgb Hct MCH MCHC RDW Band Neutrophils % Abs Neuts (Manual) Carbonic Acid 4.12 H ABG pH 7.11 L* ABG pCO2 136.8 H* ABG HCO3 42.1 H ABG Total CO2 46.3 H ABG O2 Saturation 89.9 L VBG pH VBG pCO2 VBG HCO3 Chloride Carbon Dioxide BUN Glucose AST NT-Pro-B Natriuret Pep 1770 H Urine Glucose (UA) 50 H Critical Care Note - Critical Care Note Total time excluding time spent on procedures (mins): 55 Discharge - Discharge Clinical Impression: Acute and chronic respiratory failure with hypoxia, Acute and chronic respiratory failure with hypercapnia, Morbid obesity with BMI of 50.0-59.9, adult, Diabetes mellitus type 2 in obese Pneumonia of both lower lobes Qualifiers: Pneumonia type: due to unspecified organism Qualified Code(s): J18.1 - Lobar pneumonia, unspecified organism Congestive heart failure Qualifiers: Heart failure type: diastolic Heart failure chronicity: acute on chronic Qualified Code(s): I50.33 - Acute on chronic diastolic (congestive) heart failure Condition: Serious Disposition: ADMITTED INPATIENT Admitting Provider: [facility] Unit Admitted: ODILIA Scribe Attestation: 09/24/18 17:14 I personally performed the services described in the documentation, reviewed and edited the documentation which was dictated to the scribe in my presence, and it accurately records my words and actions. I personally performed the services described in the documentation, reviewed and edited the documentation which was dictated to the scribe in my presence, and it accurately records my words and actions.
[2018-09-24] MEDS ORDERED: GLUCAGON,HUMAN RECOMB 1 MG INJ SUBCUT PRN (15:41)
[2018-09-24] MEDS ORDERED: DEXTROSE 40% GEL 15 GM TUBE PO PRN ×2 (15:41)
[2018-09-24] MEDS ORDERED: LEVALBUTEROL HCL NEB 1.25 MG/3 ML AMPUL NEB PRN (15:41)
[2018-09-24] MEDS ORDERED: DEXTROSE 50%-WATER 25 GM/50 ML DISP.SYRIN IV PRN ×2 (15:41)
[2018-09-24] MEDS: IPRATROPIUM/ALBUTEROL 0.5-2.5 MG/3 ML AMPUL NEB SCH ×3 (16:03→23:50)
--- NOTE | 2018-09-24 16:22 | PDOC H&P ---
History of Present Illness Admission Date/PCP: 09/24/18 15:37 Patient complains of: SOB History of Present Illness: ALBERTO DIAL is a 73 year old female with a PMH of [place] (STENT X 2), CHF, HTN, HLD, COPD, GERD, DM, hypothyroidism, arthritis, anemia. She presented to [facility] ER this morning for severe shortness of breath. The patient wears her trilogy every night and normally wakes up in the morning feeling short of breath. The patient reports she felt extremely short of breath this morning and notified her family member, who called EMS. CPAP was initiated en route to the hospital, but despite these efforts, the patient's initial SPO2 in the ER was 64%. The patient was completely obtunded. Family member reports that the patient did not wish to be intubated or resuscitated. ED MD placed the patient on BiPAP and the patient's respiratory status greatly improved. Additionally, the patient's level of alertness began to improve. Laboratory studies revealed marked leukocytosis (WBC 23.2) with hemoglobin 10.7, ABG reveals acute respiratory acidosis with hypoxic respiratory failure and hypercarbia with a pH of 7.11 and a PCO2 of 136.8. Chemistries are grossly unremarkable, only an elevated BUN at 28 and an elevated glucose of 319, lactic acid is normal. Troponin is unremarkable, CXR shows both pulmonary vascular congestion and bilateral lower lobe infiltrates. The patient was treated with IV Levaquin and cefepime for her pneumonia. 125 mg Solu-Medrol IV and a DuoNeb treatment was administered for her COPD exacerbation. Plan to admit patient to hospitalist service for sepsis, pneumonia and COPD exacerbation. Past Medical History Cardiac Medical History: Reports: Congestive Heart Failure - Diastolic, Coronary Artery Disease, Myocardial Infarction - cardiac stents x 2, Hyperlipidema, Hypertension, Heart Murmur - aortic stenosis Denies: DVT, Pulmonary Embolism Pulmonary Medical History: Reports: Asthma, Bronchitis, Chronic Obstructive Pulmonary Disease (COPD), Sleep Apnea - Bipap Denies: Pneumonia, Tuberculosis Neurological Medical History: Denies: Seizures Endocrine Medical History: Reports: Diabetes Mellitus Type 2, Hypothyroidism Denies: Diabetes Mellitus Type 1, Hyperthyroidism GI Medical History: Reports: Gastroesophageal Reflux Disease Denies: Cirrhosis, Hepatitis Musculoskeltal Medical History: Reports: Arthritis - generalized Psychiatric Medical History: Reports: Depression Hematology: Reports: Anemia Past Surgical History Past Surgical History: Reports: Appendectomy, Colostomy - then reversed, Hysterectomy, Orthopedic Surgery - carpal tunnel, polio surgery to left leg Denies: Pacemaker Social History Information Source: Patient Lives with: Family Smoking Status: Former Smoker Frequency of Alcohol Use: None Hx Recreational Drug Use: No Drugs: None Hx Prescription Drug Abuse: No - Advance Directive Resuscitation Status: Do Not Intubate Family History Family History: Reviewed & Not Pertinent, DM, Hyperlipidemia, Hypertension Parental Family History Reviewed: Yes Children Family History Reviewed: Unknown Sibling(s) Family History Reviewed.: Yes Medication/Allergy Allergies/Adverse Reactions: hydromorphone HCl [From Dilaudid] Allergy (Severe, Verified 04/29/18 15:24) Respiratory arrest codeine [Codeine] Allergy (Intermediate, Verified 04/29/18 15:24) Hallucinations Review of Systems All systems: reviewed and no additional remarkable complaints except as stated Physical Exam Vital Signs: Temp Pulse Resp BP Pulse Ox 20 116/58 L 100 09/24/18 15:00 09/24/18 14:01 09/24/18 15:00 General appearance: PRESENT: obese Eye exam: PRESENT: conjunctiva pink, PERRLA Mouth exam: PRESENT: dry mucosa, tongue midline Teeth exam: PRESENT: poor dentation Respiratory exam: PRESENT: symmetrical, wheezes. ABSENT: chest wall tenderness, unlabored - BIPAP Cardiovascular exam: PRESENT: +S1, +S2 Pulses: PRESENT: normal radial pulses, normal dorsalis pedis pul GI/Abdominal exam: PRESENT: soft. ABSENT: distended, tenderness Rectal exam: PRESENT: deferred Extremities exam: PRESENT: pedal edema Musculoskeletal exam: ABSENT: ambulatory, full ROM - partial ROM Neurological exam: PRESENT: alert, awake, oriented to person, oriented to place, oriented to time, oriented to situation Psychiatric exam: PRESENT: appropriate affect Skin exam: PRESENT: dry, intact, normal color, warm Results Laboratory Results: 09/24/18 11:55 09/24/18 11:55 09/24/18 09/24/18 09/24/18 11:55 11:55 11:55 WBC 23.2 H RBC 3.97 Hgb 10.7 L Hct 34.1 L MCV 86 MCH 26.9 L MCHC 31.4 L RDW 18.0 H Plt Count 399 Seg Neutrophils % Not Reportable Lymphocytes % Not Reportable Monocytes % Not Reportable Eosinophils % Not Reportable Basophils % Not Reportable Absolute Neutrophils Not Reportable Absolute Lymphocytes Not Reportable Absolute Monocytes Not Reportable Absolute Eosinophils Not Reportable Absolute Basophils Not Reportable Carbonic Acid HCO3/H2CO3 Ratio ABG pH ABG pCO2 ABG pO2 ABG HCO3 ABG O2 Saturation ABG Base Excess VBG pH VBG pCO2 VBG HCO3 VBG Base Excess FiO2 Sodium 140.7 Potassium 4.8 Chloride 97 L Carbon Dioxide 34 H Anion Gap 10 BUN 28 H Creatinine 0.68 Est GFR ( Amer) > 60 Est GFR (Non-Af Amer) > 60 Glucose 319 H Lactic Acid 0.9 Calcium 8.6 Total Bilirubin 0.5 AST 46 H ALT 41 Alkaline Phosphatase 88 Total Protein 6.7 Albumin 4.1 Urine Color Urine Appearance Urine pH Ur Specific [place] Urine Protein Urine Glucose (UA) Urine Ketones Urine Blood Urine Nitrite Ur Leukocyte Esterase Urine WBC (Auto) Urine RBC (Auto) 09/24/18 09/24/18 09/24/18 11:55 11:55 14:41 WBC RBC Hgb Hct MCV MCH MCHC RDW Plt Count Seg Neutrophils % Lymphocytes % Monocytes % Eosinophils % Basophils % Absolute Neutrophils Absolute Lymphocytes Absolute Monocytes Absolute Eosinophils Absolute Basophils Carbonic Acid 4.12 H HCO3/H2CO3 Ratio 10:1 ABG pH 7.11 L* ABG pCO2 136.8 H* ABG pO2 81.4 ABG HCO3 42.1 H ABG O2 Saturation 89.9 L ABG Base Excess 8.7 VBG pH 7.11 L* VBG pCO2 147.3 H* VBG HCO3 45.6 H VBG Base Excess 11.8 FiO2 70% Sodium Potassium Chloride Carbon Dioxide Anion Gap BUN Creatinine Est GFR ( Amer) Est GFR (Non-Af Amer) Glucose Lactic Acid Calcium Total Bilirubin AST ALT Alkaline Phosphatase Total Protein Albumin Urine Color STRAW Urine Appearance CLEAR Urine pH 6.0 Ur Specific [place] 1.009 Urine Protein NEGATIVE Urine Glucose (UA) 50 H Urine Ketones NEGATIVE Urine Blood NEGATIVE Urine Nitrite NEGATIVE Ur Leukocyte Esterase NEGATIVE Urine WBC (Auto) 0 Urine RBC (Auto) 0 09/24/18 09/24/18 09/24/18 11:55 11:55 11:55 Creatine Kinase 96 CK-MB (CK-2) 2.12 Troponin I < 0.012 NT-Pro-B Natriuret Pep 1770 H Impressions: Chest X-Ray 09/24/18 12:01 IMPRESSION: Marked left and right lower lobe pneumonia with left pleural effusion. Question aspiration complex. Vascular congestion. Status: Imported from PACS Assessment & Plan - Diagnosis (1) Sepsis Qualifiers: Sepsis type: sepsis due to unspecified organism Qualified Code(s): A41.9 - Sepsis, unspecified organism Is this a current diagnosis for this admission?: Yes Plan: Sepsis secondary to PNA as evidence by tachypnea, hypoxia, hypothermia and tachycardia CXR shows bibasilar infiltrates SPO2 upon arrival 64% Initial ABG shows severe respiratory acidosis (pH 7.11 CO2 117) Lactate < 1.0 do not need to trend BiPAP for SPO2 greater than 80% (current settings IPAP 16 EPAP 6 FiO2 50%) Sputum cultures ordered Blood cultures pending Levaquin and cefepime for empiric antibiotic coverage Warming blanket for hypothermia Given the patient's history of CHF and elevated BNP, no plans for aggressive fluid resuscitation. Do not want to overload patient with IV fluid, particularly because the patient states she would not want to be intubated if her respiratory status decompensates. (2) Acute and chronic respiratory failure with hypoxia Is this a current diagnosis for this admission?: Yes Plan: Secondary to pneumonia CXR shows bibasilar infiltrates SPO2 upon arrival 64% Initial ABG shows severe respiratory acidosis (pH 7.11 CO2 117) BiPAP for SPO2 greater than 80% (current settings IPAP 16 EPAP 6 FiO2 50%) Repeat ABG tonight Sputum cultures ordered Levaquin and cefepime for empiric antibiotic coverage Patient does not wish to be intubated should her respiratory status decompensate (3) Pneumonia of both lower lobes Qualifiers: Pneumonia type: due to unspecified organism Qualified Code(s): J18.1 - Lobar pneumonia, unspecified organism Is this a current diagnosis for this admission?: Yes Plan: Plan as above (4) Congestive heart failure Qualifiers: Heart failure type: diastolic Heart failure chronicity: acute on chronic Qualified Code(s): I50.33 - Acute on chronic diastolic (congestive) heart failure Is this a current diagnosis for this admission?: Yes Plan: History of CHF ECHO from 2016 shows , AR and LVEF 60% Continue home dose medications once medication reconciliation is complete (5) Diabetes mellitus type 2 in obese Is this a current diagnosis for this admission?: Yes Plan: Accu-Cheks AC at bedtime Humalog sliding scale insulin Hemoglobin A1c in a.m. (6) DNI (do not intubate) Is this a current diagnosis for this admission?: Yes Plan: Patient states she does not want to be intubated if she decompensates When asked about CPR, the patient states "well, CPR would be okay." Family member at bedside witnessed this conversation - Time Time Spent: 30 to 50 Minutes Medications reviewed and adjusted accordingly: Yes Anticipated discharge: Home - Inpatient Certification Based on my medical assessment, after consideration of the patient's comorbidities, presenting symptoms, or acuity I expect that the services needed warrant INPATIENT care.: Yes I certify that my determination is in accordance with my understanding of Medicare's requirements for reasonable and necessary INPATIENT services [42 CFR 412.3e].: Yes Medical Necessity: Need For Continuous Telemetry Monitoring, Risk of Complic ation if Not Cared For in Hospital - Plan Summary Plan Summary: BIPAP. ANTIBIOTICS. MUCINEX. STEROIDS. NEBULIZERS.
[2018-09-24] MEDS: ENOXAPARIN SODIUM INJ 30 MG/0.3 ML DISP.SYRIN SUBCUT SCH (17:53)
[2018-09-24 18:10] LABS: ARTERIAL BLOOD BASE EXCESS 8.1 mmol/L; ARTERIAL BLOOD H2CO3 2.07 mmol/L (1.05-1.35); ARTERIAL BLOOD HCO3 35.7 mmol/L (20-24); ARTERIAL BLOOD O2 SATURATION 96.4 % (94-98); ARTERIAL BLOOD PCO2 68.7 mmHg (35-45); ARTERIAL BLOOD PH 7.33 (7.35-7.45); ARTERIAL BLOOD PO2 93.1 mmHg (80-100); ARTERIAL BLOOD TOTAL CO2 37.8 mmol/L (21-25)
[2018-09-24 18:11] LABS: ARTERIAL BLOOD FIO2 50%
[2018-09-24] MEDS: FAMOTIDINE INJ/PF 20 MG/2 ML SDV IV SCH (21:50)
[2018-09-24] MEDS: GUAIFENESIN 600 MG TABLET.SA PO SCH (21:50)
[2018-09-24] MEDS: CEFEPIME 2 GM/D5W RTU 2 GM/50 ML RTUPB IV SCH (22:59)
[2018-09-24] MEDS: INSULIN LISPRO 100 UNIT/ML 3 ML VIAL SUBCUT SCH (22:59)
[2018-09-24] MEDS: METHYLPREDNISOLONE INJ 40 MG/1 ML SDV IV SCH (23:09)
[2018-09-25] MEDS: IPRATROPIUM/ALBUTEROL 0.5-2.5 MG/3 ML AMPUL NEB SCH ×5 (04:33→20:28)
[2018-09-25 05:01] LABS: HEMATOCRIT 29.8 % (36.0-47.0); HEMOGLOBIN 9.9 g/dL (12.0-15.5); MEAN CORPUSCULAR HEMOGLOBIN 27.7 pg (27.0-33.4); MEAN CORPUSCULAR HGB CONC 33.1 g/dL (32.0-36.0); MEAN CORPUSCULAR VOLUME 84 fl (80-97); PLATELET COUNT 307 10^3/uL (150-450); RED BLOOD COUNT 3.57 10^6/uL (3.72-5.28); RED CELL DISTRIBUTION WIDTH 17.7 % (11.5-14.0); WHITE BLOOD COUNT 10.1 10^3/uL (4.0-10.5)
[2018-09-25] MEDS: METHYLPREDNISOLONE INJ 40 MG/1 ML SDV IV SCH ×3 (05:14→18:11)
[2018-09-25 05:18] LABS: ALANINE AMINOTRANSFERASE 34 U/L (9-52); ALBUMIN 3.8 g/dL (3.5-5.0); ALKALINE PHOSPHATASE 71 U/L (38-126); ANION GAP 9 (5-19); ASPARTATE AMINO TRANSFERASE 25 U/L (14-36); BILIRUBIN,DIRECT 0.3 mg/dL (0.0-0.4); BILIRUBIN,TOTAL 0.4 mg/dL (0.2-1.3); BLOOD UREA NITROGEN 27 mg/dL (7-20); CALCIUM 8.6 mg/dL (8.4-10.2); CARBON DIOXIDE 35 mmol/L (22-30); CHLORIDE 97 mmol/L (98-107); GLUCOSE 183 mg/dL (75-110); POTASSIUM 4.5 mmol/L (3.6-5.0); SODIUM 141.2 mmol/L (137-145); TOTAL PROTEIN 6.3 g/dL (6.3-8.2)
[2018-09-25 05:30] LABS: ABSOLUTE LYMPHOCYTES# (MANUAL) 0.2 10^3/uL (0.5-4.7); ABSOLUTE MONOCYTES # (MANUAL) 0.1 10^3/uL (0.1-1.4); ABSOLUTE NEUTROPHILS# (MANUAL) 9.8 10^3/uL (1.7-8.2); ANISOCYTOSIS 2+; BASOPHILS % (MANUAL) 0 % (0-2); EOSINOPHILS % (MANUAL) 0 % (0-6); LYMPHOCYTES % (MANUAL) 2 % (13-45); METAMYELOCYTES % (MANUAL) 1 % (0); MONOCYTES % (MANUAL) 1 % (3-13); PLATELET CLUMPS PRESENT; PLATELET COMMENT ADEQUATE; SEGMENTED NEUTROPHILS % (MAN) 96 % (42-78); TOTAL CELLS COUNTED 100; TOXIC GRANULATION SLIGHT
[2018-09-25] MEDS: LEVOFLOXACIN 750 MG/D5W RTU 750 MG/150 ML RTUPB IV SCH (09:20)
[2018-09-25] MEDS: INSULIN LISPRO 100 UNIT/ML 3 ML VIAL SUBCUT SCH ×4 (09:20→22:55)
[2018-09-25] MEDS: FAMOTIDINE INJ/PF 20 MG/2 ML SDV IV SCH ×2 (09:21→22:56)
[2018-09-25] MEDS: ENOXAPARIN SODIUM INJ 30 MG/0.3 ML DISP.SYRIN SUBCUT SCH (09:21)
[2018-09-25] MEDS: GUAIFENESIN 600 MG TABLET.SA PO SCH ×2 (09:21→22:55)
[2018-09-25] MEDS ORDERED: NITROGLYCERIN 0.4 MG/TAB 25 TAB/BOTTLE SL PRN (09:36)
[2018-09-25] MEDS ORDERED: (PENDING PHARMACY ID) (Rabeprazole Sodium [Aciphex] 20 MG) PO SCH (10:00)
[2018-09-25] MEDS ORDERED: (PENDING PHARMACY ID) (Fexofenadine Hcl [Allegra Allergy] 180 MG) PO SCH (10:00)
[2018-09-25] MEDS ORDERED: (PENDING PHARMACY ID) (Liothyronine Sodium [Cytomel] 10 MCG) PO SCH (10:00)
[2018-09-25] MEDS ORDERED: (PENDING PHARMACY ID) (Calcium Carbonate/Vitamin D3 [Calcium 500-Vit D3 200 Tablet] 1 EACH PO SCH (10:00)
[2018-09-25] MEDS: ASPIRIN 81 MG TABLET, ENT COATED PO SCH (10:03)
[2018-09-25] MEDS: CALCIUM CARBONATE 250 MG/VITAMIN D3 125 UNIT TABLET PO SCH (10:03)
[2018-09-25] MEDS: METOPROLOL SUCCINATE 25 MG TAB.SR.24H PO SCH (10:03)
[2018-09-25] MEDS: CLOPIDOGREL BISULFATE 75 MG TABLET PO SCH (10:04)
[2018-09-25] MEDS: LORATADINE 10 MG TABLET PO SCH (10:04)
[2018-09-25] MEDS: POTASSIUM CHLORIDE 10 MEQ CAPSULE.ER PO SCH (10:04)
[2018-09-25] MEDS: POLYETHYLENE GLYCOL 3350 POWDER 17 GM/1 PACKET PO SCH (10:10)
[2018-09-25] MEDS ORDERED: FUROSEMIDE INJ/PF 40 MG/4 ML SDV IV ONE (10:30)
--- NOTE | 2018-09-25 10:55 | PDOC PROGRESS REPORT ---
Subjective Progress Note for:: 09/25/18 Subjective:: ALBERTO DIAL is a 73 year old female with a PMH of [place] (STENT X 2), CHF, HTN, HLD, COPD, GERD, DM, hypothyroidism, arthritis, anemia. Patient was admitted for hypoxic respiratory failure, sepsis and pneumonia. Patient was seen this morning on rounds. She is resting comfortably in the bed on BiPAP. Earlier today, and patient complained of chest pressure. EKG shows sinus arrhythmia with PACs, no evidence of acute ischemia or infarction. The patient states that her chest pain spontaneously resolved. She endorses mild shortness of breath, states that the BiPAP machine does not "help her breathe as much as the trilogy."Lungs are clear to auscultation, mildly diminished in the bases. No adventitious lung sounds. No central or peripheral cyanosis. Talk to Dr. Sanders's assistant professor of nursing, Fabiola. Plan to switch patient from BiPAP to AVAPS. Will follow up with an ABG 1 hour after initiating AVAPS. Attempting to make arrangements to have patient's own trilogy brought to the hospital. Reason For Visit: PNEUMONIA Physical Exam Vital Signs: Temp Pulse Resp BP Pulse Ox 97.8 F 64 23 H 142/46 H 96 09/25/18 07:02 09/25/18 07:38 09/25/18 07:38 09/25/18 07:02 09/25/18 07:38 Intake & Output 09/24/18 09/25/18 09/26/18 06:59 06:59 06:59 Intake Total 350 Output Total 1700 Balance -1350 Weight 120 kg General appearance: PRESENT: morbidly obese Head exam: PRESENT: atraumatic Eye exam: PRESENT: conjunctiva pink, PERRLA Mouth exam: PRESENT: moist, tongue midline Teeth exam: PRESENT: poor dentation Neck exam: PRESENT: full ROM Respiratory exam: PRESENT: clear to auscultation joel, decreased breath sounds, symmetrical, tachypnea Cardiovascular exam: PRESENT: irregular rhythm - Sinus arrhythmia with PACs, +S1, +S2 Pulses: PRESENT: normal radial pulses, normal dorsalis pedis pul Vascular exam: PRESENT: normal capillary refill GI/Abdominal exam: PRESENT: soft. ABSENT: distended, tenderness Rectal exam: PRESENT: deferred Extremities exam: PRESENT: pedal edema - MILD. ABSENT: full ROM Musculoskeletal exam: ABSENT: ambulatory - WHEELCHAIR BOUND, full ROM Neurological exam: PRESENT: alert, awake, oriented to person, oriented to place, oriented to time, oriented to situation Psychiatric exam: PRESENT: appropriate affect Skin exam: PRESENT: dry, intact, normal color Results Laboratory Results: 09/25/18 04:04 09/25/18 04:04 09/24/18 09/24/18 09/24/18 11:55 11:55 11:55 WBC 23.2 H RBC 3.97 Hgb 10.7 L Hct 34.1 L MCV 86 MCH 26.9 L MCHC 31.4 L RDW 18.0 H Plt Count 399 Seg Neutrophils % Not Reportable Lymphocytes % Not Reportable Monocytes % Not Reportable Eosinophils % Not Reportable Basophils % Not Reportable Absolute Neutrophils Not Reportable Absolute Lymphocytes Not Reportable Absolute Monocytes Not Reportable Absolute Eosinophils Not Reportable Absolute Basophils Not Reportable Carbonic Acid HCO3/H2CO3 Ratio ABG pH ABG pCO2 ABG pO2 ABG HCO3 ABG O2 Saturation ABG Base Excess VBG pH VBG pCO2 VBG HCO3 VBG Base Excess FiO2 Sodium 140.7 Potassium 4.8 Chloride 97 L Carbon Dioxide 34 H Anion Gap 10 BUN 28 H Creatinine 0.68 Est GFR ( Amer) > 60 Est GFR (Non-Af Amer) > 60 Glucose 319 H Lactic Acid 0.9 Calcium 8.6 Total Bilirubin 0.5 AST 46 H ALT 41 Alkaline Phosphatase 88 Total Protein 6.7 Albumin 4.1 Urine Color Urine Appearance Urine pH Ur Specific [place] Urine Protein Urine Glucose (UA) Urine Ketones Urine Blood Urine Nitrite Ur Leukocyte Esterase Urine WBC (Auto) Urine RBC (Auto) 09/24/18 09/24/18 09/24/18 11:55 11:55 14:41 WBC RBC Hgb Hct MCV MCH MCHC RDW Plt Count Seg Neutrophils % Lymphocytes % Monocytes % Eosinophils % Basophils % Absolute Neutrophils Absolute Lymphocytes Absolute Monocytes Absolute Eosinophils Absolute Basophils Carbonic Acid 4.12 H HCO3/H2CO3 Ratio 10:1 ABG pH 7.11 L* ABG pCO2 136.8 H* ABG pO2 81.4 ABG HCO3 42.1 H ABG O2 Saturation 89.9 L ABG Base Excess 8.7 VBG pH 7.11 L* VBG pCO2 147.3 H* VBG HCO3 45.6 H VBG Base Excess 11.8 FiO2 70% Sodium Potassium Chloride Carbon Dioxide Anion Gap BUN Creatinine Est GFR ( Amer) Est GFR (Non-Af Amer) Glucose Lactic Acid Calcium Total Bilirubin AST ALT Alkaline Phosphatase Total Protein Albumin Urine Color STRAW Urine Appearance CLEAR Urine pH 6.0 Ur Specific [place] 1.009 Urine Protein NEGATIVE Urine Glucose (UA) 50 H Urine Ketones NEGATIVE Urine Blood NEGATIVE Urine Nitrite NEGATIVE Ur Leukocyte Esterase NEGATIVE Urine WBC (Auto) 0 Urine RBC (Auto) 0 09/24/18 09/25/18 09/25/18 17:45 04:04 04:04 WBC 10.1 RBC 3.57 L Hgb 9.9 L Hct 29.8 L MCV 84 MCH 27.7 MCHC 33.1 RDW 17.7 H Plt Count 307 Seg Neutrophils % Not Reportable Lymphocytes % Not Reportable Monocytes % Not Reportable Eosinophils % Not Reportable Basophils % Not Reportable Absolute Neutrophils Not Reportable Absolute Lymphocytes Not Reportable Absolute Monocytes Not Reportable Absolute Eosinophils Not Reportable Absolute Basophils Not Reportable Carbonic Acid 2.07 H HCO3/H2CO3 Ratio 17:1 ABG pH 7.33 L ABG pCO2 68.7 H ABG pO2 93.1 ABG HCO3 35.7 H ABG O2 Saturation 96.4 ABG Base Excess 8.1 VBG pH VBG pCO2 VBG HCO3 VBG Base Excess FiO2 50% Sodium 141.2 Potassium 4.5 Chloride 97 L Carbon Dioxide 35 H Anion Gap 9 BUN 27 H Creatinine 0.63 Est GFR ( Amer) > 60 Est GFR (Non-Af Amer) > 60 Glucose 183 H Lactic Acid Calcium 8.6 Total Bilirubin 0.4 AST 25 ALT 34 Alkaline Phosphatase 71 Total Protein 6.3 Albumin 3.8 Urine Color Urine Appearance Urine pH Ur Specific [place] Urine Protein Urine Glucose (UA) Urine Ketones Urine Blood Urine Nitrite Ur Leukocyte Esterase Urine WBC (Auto) Urine RBC (Auto) 09/24/18 09/24/18 09/24/18 11:55 11:55 11:55 Creatine Kinase 96 CK-MB (CK-2) 2.12 Troponin I < 0.012 NT-Pro-B Natriuret Pep 1770 H 09/25/18 04:04 Creatine Kinase CK-MB (CK-2) Troponin I NT-Pro-B Natriuret Pep 8540 H Impressions: Chest X-Ray 09/24/18 12:01 IMPRESSION: Marked left and right lower lobe pneumonia with left pleural effusion. Question aspiration complex. Vascular congestion. Status: Imported from PACS Assessment & Plan - Diagnosis (1) Sepsis Qualifiers: Sepsis type: sepsis due to unspecified organism Qualified Code(s): A41.9 - Sepsis, unspecified organism Is this a current diagnosis for this admission?: Yes Plan: Sepsis secondary to PNA as evidence by tachypnea, hypoxia, hypothermia and t achycardia CXR shows bibasilar infiltrates SPO2 upon arrival 64% --> improved to 96% on BIPAP Initial ABG shows severe respiratory acidosis (pH 7.11 CO2 117) Repeat ABG improved, still shows hypercapnia, and expected finding in a patient with COPD Lactate < 1.0 do not need to trend BiPAP for SPO2 greater than 80% (current settings IPAP 16 EPAP 6 FiO2 45%) Sputum cultures ordered Blood cultures pending Levaquin and cefepime for empiric antibiotic coverage Initially hypothermic, core temperature 95.9, requiring Monique hugger warming blanket. Now normothermic. Bear hugger d/c'd Given the patient's history of CHF and elevated BNP, no plans for aggressive fluid resuscitation. Do not want to overload patient with IV fluid, particularly because the patient states she would not want to be intubated if her respiratory status decompensates. (2) Acute and chronic respiratory failure with hypoxia Is this a current diagnosis for this admission?: Yes Plan: Secondary to pneumonia CXR shows bibasilar infiltrates SPO2 upon arrival 64% --> improved to 96% on BIPAP Initial ABG shows severe respiratory acidosis (pH 7.11 CO2 117) Repeat ABG improved, still shows hypercapnia, and expected finding in a patient with COPD BiPAP for SPO2 greater than 80% (current settings IPAP 16 EPAP 6 FiO2 45%) Plan to switch to AVAPS today, per pulmonology Sputum cultures ordered Levaquin and cefepime for empiric antibiotic coverage Patient does not wish to be intubated should her respiratory status decompensate (3) Pneumonia of both lower lobes Qualifiers: Pneumonia type: due to unspecified organism Qualified Code(s): J18.1 - Lobar pneumonia, unspecified organism Is this a current diagnosis for this admission?: Yes Plan: Plan as above (4) COPD (chronic obstructive pulmonary disease) Qualifiers: COPD type: COPD with acute exacerbation Qualified Code(s): J44.1 - Chronic obstructive pulmonary disease with (acute) exacerbation Is this a current diagnosis for this admission?: Yes Plan: Acute on chronic exacerbation of COPD Secondary to pneumonia Mucinex twice daily Scheduled nebulizers and Solu-Medrol IV Empiric antibiotic coverage Remaining plan as above (5) Congestive heart failure Qualifiers: Heart failure type: diastolic Heart failure chronicity: acute on chronic Qualified Code(s): I50.33 - Acute on chronic diastolic (congestive) heart failure Is this a current diagnosis for this admission?: Yes Plan: History of CHF BNP increased from 1770-->8540 ECHO from 2016 shows , AR and LVEF 60% Continue home dose lasix with one time dose IV lasix now Continue home dose Plavix, Lasix and metoprolol (6) Diabetes mellitus type 2 in obese Is this a current diagnosis for this admission?: Yes Plan: Accu-Cheks AC at bedtime Humalog sliding scale insulin Hemoglobin A1c in a.m. (7) DNI (do not intubate) Is this a current diagnosis for this admission?: Yes Plan: Patient states she does not want to be intubated if she decompensates When asked about CPR, the patient states "well, CPR would be okay." Family member at bedside witnessed this conversation - Time Time Spent with patient: 15-24 minutes Medications reviewed and adjusted accordingly: Yes Anticipated discharge: Home - Inpatient Certification Based on my medical assessment, after consideration of the patient's comorbidities, presenting symptoms, or acuity I expect that the services needed warrant INPATIENT care.: Yes I certify that my determination is in accordance with my understanding of Medicare's requirements for reasonable and necessary INPATIENT services [42 CFR 412.3e].: Yes Medical Necessity: Need for Nebulizer Therapy and Monitoring of Response, Need for IV Antibiotics - Plan Summary Plan Summary: AVAPS with F/U ABG. Antibiotics. Nebulizers. Steroids. Attempt to get patient's Trilogy
[2018-09-25] MEDS: CEFEPIME 2 GM/D5W RTU 2 GM/50 ML RTUPB IV SCH ×2 (12:30→22:55)
[2018-09-25] MEDS: LIOTHYRONINE SODIUM 5 MCG TABLET PO SCH (12:30)
[2018-09-25] MEDS: TERBINAFINE HCL 250 MG TABLET PO SCH (12:30)
--- NOTE | 2018-09-25 14:01 | EKG REPORT ---
SEVERITY:- ABNORMAL ECG - SINUS RHYTHM MULTIPLE ATRIAL PREMATURE COMPLEXES RIGHT BUNDLE BRANCH BLOCK LVH WITH SECONDARY REPOLARIZATION ABNORMALITY : Confirmed by: Odilon Beckwith 25-Sep-2018 14:01:23
--- NOTE | 2018-09-25 14:02 | EKG REPORT ---
SEVERITY:- ABNORMAL ECG - SINUS RHYTHM RIGHT BUNDLE BRANCH BLOCK LVH WITH SECONDARY REPOLARIZATION ABNORMALITY : Confirmed by: Odilon Beckwith 25-Sep-2018 14:01:36
[2018-09-25] MEDS: FUROSEMIDE 40 MG TABLET PO SCH (18:11)
[2018-09-25] MEDS: ATORVASTATIN CALCIUM 40 MG TABLET PO SCH (22:55)
[2018-09-26] MEDS: METHYLPREDNISOLONE INJ 40 MG/1 ML SDV IV SCH ×5 (00:01→23:01)
[2018-09-26] MEDS: IPRATROPIUM/ALBUTEROL 0.5-2.5 MG/3 ML AMPUL NEB SCH ×6 (00:17→20:04)
[2018-09-26] MEDS: LANSOPRAZOLE 15 MG TAB.RAP.DR PO SCH (05:49)
[2018-09-26] MEDS ORDERED: LORAZEPAM INJ 2 MG/1 ML VIAL IV PRN (08:40)
[2018-09-26] MEDS: INSULIN LISPRO 100 UNIT/ML 3 ML VIAL SUBCUT SCH ×5 (10:13→22:59)
[2018-09-26] MEDS: TERBINAFINE HCL 250 MG TABLET PO SCH (10:13)
[2018-09-26] MEDS: CEFEPIME 2 GM/D5W RTU 2 GM/50 ML RTUPB IV SCH ×2 (10:13→22:59)
[2018-09-26] MEDS: LIOTHYRONINE SODIUM 5 MCG TABLET PO SCH (10:14)
[2018-09-26] MEDS: POLYETHYLENE GLYCOL 3350 POWDER 17 GM/1 PACKET PO SCH (10:15)
[2018-09-26] MEDS: FUROSEMIDE 40 MG TABLET PO SCH ×2 (10:15→17:24)
[2018-09-26] MEDS: ENOXAPARIN SODIUM INJ 30 MG/0.3 ML DISP.SYRIN SUBCUT SCH (10:15)
[2018-09-26] MEDS: POTASSIUM CHLORIDE 10 MEQ CAPSULE.ER PO SCH (10:16)
[2018-09-26] MEDS: CLOPIDOGREL BISULFATE 75 MG TABLET PO SCH (10:16)
[2018-09-26] MEDS: LORATADINE 10 MG TABLET PO SCH (10:17)
[2018-09-26] MEDS: GUAIFENESIN 600 MG TABLET.SA PO SCH ×2 (10:17→22:58)
[2018-09-26] MEDS: ASPIRIN 81 MG TABLET, ENT COATED PO SCH (10:17)
[2018-09-26] MEDS: CALCIUM CARBONATE 250 MG/VITAMIN D3 125 UNIT TABLET PO SCH (10:18)
[2018-09-26] MEDS: METOPROLOL SUCCINATE 25 MG TAB.SR.24H PO SCH (10:18)
[2018-09-26] MEDS: FAMOTIDINE INJ/PF 20 MG/2 ML SDV IV SCH ×2 (10:18→22:58)
[2018-09-26] MEDS: LEVOFLOXACIN 750 MG/D5W RTU 750 MG/150 ML RTUPB IV SCH (10:59)
--- NOTE | 2018-09-26 12:52 | PDOC PROGRESS REPORT ---
Subjective Progress Note for:: 09/26/18 Subjective:: ALBERTO DIAL is a 73 year old female with a PMH of DC (STENT X 2), CHF, HTN, HLD, COPD, GERD, DM, hypothyroidism, arthritis, anemia. Patient was admitted for hypoxic respiratory failure, sepsis and pneumonia. Patient was seen this morning on rounds. She is receiving a nebulizer treatment at the time of assessment. She endorses mild shortness of breath, but states her new BIPAP settings (AVAPS) has improved her feelings of dyspnea. The patient states she is coughing but feels like she "can't get anything up." No adventitious lung sounds. No central or peripheral cyanosis. Plan to increase Mucinex from 600mg to 1200mg. Initiate chest PT while awake Reason For Visit: PNEUMONIA Physical Exam Vital Signs: Temp Pulse Resp BP Pulse Ox 97.9 F 61 18 123/63 94 09/26/18 11:46 09/26/18 11:48 09/26/18 11:48 09/26/18 11:46 09/26/18 11:48 Intake & Output 09/25/18 09/26/18 09/27/18 06:59 06:59 06:59 Intake Total 350 1181 50 Output Total 1700 3100 600 Balance -5300 -6162 -550 Weight 120 kg 120.9 kg General appearance: PRESENT: morbidly obese Eye exam: PRESENT: conjunctiva pink, PERRLA Mouth exam: PRESENT: moist, tongue midline Teeth exam: PRESENT: poor dentation Neck exam: PRESENT: full ROM Respiratory exam: PRESENT: clear to auscultation joel, decreased breath sounds - b/l bases, symmetrical, unlabored Cardiovascular exam: PRESENT: RRR Pulses: PRESENT: normal radial pulses Vascular exam: PRESENT: normal capillary refill GI/Abdominal exam: PRESENT: soft. ABSENT: distended, tenderness Rectal exam: PRESENT: deferred Extremities exam: ABSENT: full ROM - partial ROM to lower extremities. 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 ABSENT: ambulatory, full ROM, normal inspection Neurological exam: PRESENT: alert, awake, oriented to person, oriented to place, oriented to time, oriented to situation Psychiatric exam: PRESENT: appropriate affect Skin exam: PRESENT: dry, intact, normal color Results Laboratory Results: 09/25/18 04:04 09/25/18 04:04 09/24/18 14:41 Catheterized Urine Urine Culture - Final Enterococcus Faecalis(Group D) 09/24/18 09/24/18 09/24/18 11:55 11:55 11:55 Creatine Kinase 96 CK-MB (CK-2) 2.12 Troponin I < 0.012 NT-Pro-B Natriuret Pep 1770 H 09/25/18 04:04 Creatine Kinase CK-MB (CK-2) Troponin I NT-Pro-B Natriuret Pep 8540 H Impressions: Chest X-Ray 09/24/18 12:01 IMPRESSION: Marked left and right lower lobe pneumonia with left pleural effusion. Question aspiration complex. Vascular congestion. Status: Imported from PACS Assessment & Plan - Diagnosis (1) Sepsis Qualifiers: Sepsis type: sepsis due to unspecified organism Qualified Code(s): A41.9 - Sepsis, unspecified organism Is this a current diagnosis for this admission?: Yes Plan: Sepsis secondary to PNA as evidence by tachypnea, hypoxia, hypothermia and tachycardia CXR shows bibasilar infiltrates SPO2 upon arrival 64% --> improved to 96% on BIPAP Initial ABG shows severe respiratory acidosis (pH 7.11 CO2 117) Repeat ABG improved, still shows hypercapnia, and expected finding in a patient with COPD Lactate < 1.0 do not need to trend AVAPS for SPO2 greater than 80% Sputum cultures ordered Blood cultures pending Levaquin and cefepime for empiric antibiotic coverage Initially hypothermic, core temperature 95.9, requiring Bear hugger warming blanket. Now normothermic. Bear hugger d/c'd (2) Acute and chronic respiratory failure with hypoxia Is this a current diagnosis for this admission?: Yes Plan: Secondary to pneumonia CXR shows bibasilar infiltrates SPO2 upon arrival 64% --> improved to 96% on BIPAP Initial ABG shows severe respiratory acidosis (pH 7.11 CO2 117) Repeat ABG improved, still shows hypercapnia, an expected finding in a patient with COPD AVAPS for SPO2 greater than 80% Scheduled and PRN nebulizer treatments Scheduled IV Solumedrol Plan to switch to AVAPS today, per pulmonology Sputum cultures ordered Levaquin and cefepime for empiric antibiotic coverage Patient does not wish to be intubated should her respiratory status decompensate (3) Pneumonia of both lower lobes Qualifiers: Pneumonia type: due to unspecified organism Qualified Code(s): J18.1 - Lobar pneumonia, unspecified organism Is this a current diagnosis for this admission?: Yes Plan: Plan as above (4) COPD (chronic obstructive pulmonary disease) Qualifiers: COPD type: COPD with acute exacerbation Qualified Code(s): J44.1 - Chronic obstructive pulmonary disease with (acute) exacerbation Is this a current diagnosis for this admission?: Yes Plan: Acute on chronic exacerbation of COPD Secondary to pneumonia Mucinex twice daily, increase dose today from 600mg to 1200mg Scheduled nebulizers and Solu-Medrol IV Empiric antibiotic coverage Remaining plan as above (5) Congestive heart failure Qualifiers: Heart failure type: diastolic Heart failure chronicity: acute on chronic Qualified Code(s): I50.33 - Acute on chronic diastolic (congestive) heart failure Is this a current diagnosis for this admission?: Yes Plan: History of CHF BNP increased from 1770-->8540 ECHO from 2016 shows , AR and LVEF 60% Continue home dose lasix Continue home dose Plavix, Lasix and metoprolol (6) Diabetes mellitus type 2 in obese Is this a current diagnosis for this admission?: Yes Plan: Accu-Cheks AC at bedtime Humalog sliding scale insulin Hemoglobin A1c in a.m. (7) DNI (do not intubate) Is this a current diagnosis for this admission?: Yes Plan: Patient states she does not want to be intubated if she decompensates When asked about CPR, the patient states "well, CPR would be okay." Family member at bedside witnessed this conversation - Time Time Spent with patient: 15-24 minutes Medications reviewed and adjusted accordingly: Yes Anticipated discharge: Home Within: within 72 hours - Inpatient Certification Based on my medical assessment, after consideration of the patient's comorbidities, presenting symptoms, or acuity I expect that the services needed warrant INPATIENT care.: Yes I certify that my determination is in accordance with my understanding of Medicare's requirements for reasonable and necessary INPATIENT services [42 CFR 412.3e].: Yes Medical Necessity: Need for Nebulizer Therapy and Monitoring of Response, Need for IV Antibiotics - Plan Summary Plan Summary: antibiotics. nebulizers. steroids. continue on AVAPS. Start chest PT today.
[2018-09-26] MEDS ORDERED: INSULIN LISPRO 100 UNIT/ML 3 ML VIAL SUBCUT ONE ×2 (13:00→14:30)
[2018-09-26 13:09] LABS: ARTERIAL BLOOD BASE EXCESS 7.9 mmol/L; ARTERIAL BLOOD FIO2 35%; ARTERIAL BLOOD H2CO3 1.87 mmol/L (1.05-1.35); ARTERIAL BLOOD HCO3 34.7 mmol/L (20-24); ARTERIAL BLOOD O2 SATURATION 98.5 % (94-98); ARTERIAL BLOOD PCO2 62.2 mmHg (35-45); ARTERIAL BLOOD PH 7.36 (7.35-7.45); ARTERIAL BLOOD PO2 136.1 mmHg (80-100); ARTERIAL BLOOD TOTAL CO2 36.6 mmol/L (21-25)
[2018-09-26 13:10] LABS: HEMOGLOBIN 9.5 g/dL (12.0-15.5); MEAN CORPUSCULAR HEMOGLOBIN 27.2 pg (27.0-33.4); MEAN CORPUSCULAR HGB CONC 31.8 g/dL (32.0-36.0); MEAN CORPUSCULAR VOLUME 86 fl (80-97); PLATELET COUNT 296 10^3/uL (150-450); RED BLOOD COUNT 3.51 10^6/uL (3.72-5.28); RED CELL DISTRIBUTION WIDTH 17.6 % (11.5-14.0)
[2018-09-26 13:29] LABS: ANION GAP 9 (5-19); BLOOD UREA NITROGEN 33 mg/dL (7-20); CALCIUM 8.5 mg/dL (8.4-10.2); CARBON DIOXIDE 37 mmol/L (22-30); CHLORIDE 92 mmol/L (98-107); GLUCOSE 375 mg/dL (75-110); PHOSPHORUS 3.7 mg/dL (2.5-4.5); POTASSIUM 4.7 mmol/L (3.6-5.0); SODIUM 138.1 mmol/L (137-145)
[2018-09-26] MEDS: ACETAMINOPHEN 325 MG TABLET PO PRN (22:58)
[2018-09-26] MEDS: ATORVASTATIN CALCIUM 40 MG TABLET PO SCH (22:58)
[2018-09-27] MEDS: IPRATROPIUM/ALBUTEROL 0.5-2.5 MG/3 ML AMPUL NEB SCH ×6 (00:19→20:39)
[2018-09-27] MEDS: METHYLPREDNISOLONE INJ 40 MG/1 ML SDV IV SCH ×3 (06:16→17:43)
[2018-09-27] MEDS: LANSOPRAZOLE 15 MG TAB.RAP.DR PO SCH (06:16)
[2018-09-27] MEDS: INSULIN LISPRO 100 UNIT/ML 3 ML VIAL SUBCUT SCH ×4 (08:21→22:29)
[2018-09-27] MEDS: ACETAMINOPHEN 325 MG TABLET PO PRN ×2 (08:21→22:37)
[2018-09-27] MEDS: CLOPIDOGREL BISULFATE 75 MG TABLET PO SCH (11:29)
[2018-09-27] MEDS: GUAIFENESIN 600 MG TABLET.SA PO SCH ×2 (11:29→22:29)
[2018-09-27] MEDS: POTASSIUM CHLORIDE 10 MEQ CAPSULE.ER PO SCH (11:29)
[2018-09-27] MEDS: CALCIUM CARBONATE 250 MG/VITAMIN D3 125 UNIT TABLET PO SCH (11:29)
[2018-09-27] MEDS: METOPROLOL SUCCINATE 25 MG TAB.SR.24H PO SCH (11:30)
[2018-09-27] MEDS: ENOXAPARIN SODIUM INJ 30 MG/0.3 ML DISP.SYRIN SUBCUT SCH (11:30)
[2018-09-27] MEDS: ASPIRIN 81 MG TABLET, ENT COATED PO SCH (11:30)
[2018-09-27] MEDS: TERBINAFINE HCL 250 MG TABLET PO SCH (11:30)
[2018-09-27] MEDS: POLYETHYLENE GLYCOL 3350 POWDER 17 GM/1 PACKET PO SCH (11:30)
[2018-09-27] MEDS: LIOTHYRONINE SODIUM 5 MCG TABLET PO SCH (11:30)
[2018-09-27] MEDS: FAMOTIDINE INJ/PF 20 MG/2 ML SDV IV SCH ×2 (11:30→22:29)
[2018-09-27] MEDS: FUROSEMIDE 40 MG TABLET PO SCH ×2 (11:30→17:43)
[2018-09-27] MEDS: LORATADINE 10 MG TABLET PO SCH (11:30)
[2018-09-27] MEDS: LEVOFLOXACIN 750 MG/D5W RTU 750 MG/150 ML RTUPB IV SCH (11:31)
[2018-09-27] MEDS: CEFEPIME 2 GM/D5W RTU 2 GM/50 ML RTUPB IV SCH ×2 (11:31→22:30)
[2018-09-27] MEDS ORDERED: TRAMADOL HCL 50 MG TABLET PO PRN (13:19)
[2018-09-27] MEDS ORDERED: DEXTROSE 40% GEL 15 GM TUBE PO PRN ×2 (13:24)
[2018-09-27] MEDS ORDERED: GLUCAGON,HUMAN RECOMB 1 MG INJ IM PRN (13:24)
[2018-09-27] MEDS ORDERED: DEXTROSE 50%-WATER 25 GM/50 ML DISP.SYRIN IV PRN ×2 (13:24)
--- NOTE | 2018-09-27 21:33 | PDOC PROGRESS REPORT ---
Subjective Progress Note for:: 09/27/18 Subjective:: ALBERTO DIAL is a 73 year old female with a PMH of MA (STENT X 2), CHF, HTN, HLD, COPD, GERD, DM, hypothyroidism, arthritis, anemia. Patient was admitted for hypoxic respiratory failure, sepsis and pneumonia. Patient was seen this morning on rounds. She is resting comfortably on BIPAP. She endorses mild shortness of breath, but states her new BIPAP settings (AVAPS) have improved her feelings of dyspnea. No adventitious lung sounds. No central or peripheral cyanosis. The patient stated she slept in a strange position last night and was experiencing R shoulder pain. She requested pain medication, states tylenol didn't work. Additionally, the patient's blood glucose has remained elevated throughout her hospital stay. Plan to initiate Lantus today. Reason For Visit: PNEUMONIA Physical Exam Vital Signs: Temp Pulse Resp BP Pulse Ox 97.9 F 68 17 134/58 H 100 09/27/18 15:19 09/27/18 20:40 09/27/18 20:40 09/27/18 15:19 09/27/18 20:40 Intake & Output 09/26/18 09/27/18 09/28/18 06:59 06:59 06:59 Intake Total 1181 250 200 Output Total 3100 2400 850 Balance -1919 -2150 -650 Weight 120.9 kg 119.8 kg General appearance: PRESENT: mild distress - requiring bipap for resp failure, morbidly obese Eye exam: PRESENT: conjunctiva pink, PERRLA Mouth exam: PRESENT: moist, tongue midline Neck exam: PRESENT: full ROM Respiratory exam: PRESENT: clear to auscultation joel, symmetrical, unlabored Cardiovascular exam: PRESENT: RRR Pulses: PRESENT: normal radial pulses GI/Abdominal exam: PRESENT: normal bowel sounds, soft. ABSENT: tenderness Rectal exam: PRESENT: deferred Extremities exam: PRESENT: pedal edema. ABSENT: full ROM Musculoskeletal exam: PRESENT: deformity - left lower extremity - history of polio. ABSENT: ambulatory, full ROM, normal inspection Neurological exam: PRESENT: alert, awake, oriented to person, oriented to place, oriented to time, oriented to situation Psychiatric exam: PRESENT: appropriate affect Skin exam: PRESENT: dry, intact, normal color Results Laboratory Results: 09/26/18 12:55 09/26/18 12:55 09/24/18 09/24/18 09/24/18 11:55 11:55 11:55 Creatine Kinase 96 CK-MB (CK-2) 2.12 Troponin I < 0.012 NT-Pro-B Natriuret Pep 1770 H 09/25/18 04:04 Creatine Kinase CK-MB (CK-2) Troponin I NT-Pro-B Natriuret Pep 8540 H Impressions: Chest X-Ray 09/24/18 12:01 IMPRESSION: Marked left and right lower lobe pneumonia with left pleural effusion. Question aspiration complex. Vascular congestion. Status: Imported from PACS Assessment & Plan - Diagnosis (1) Sepsis Qualifiers: Sepsis type: sepsis due to unspecified organism Qualified Code(s): A41.9 - Sepsis, unspecified organism Is this a current diagnosis for this admission?: Yes (2) Acute and chronic respiratory failure with hypoxia Is this a current diagnosis for this admission?: Yes (3) Pneumonia of both lower lobes Qualifiers: Pneumonia type: due to unspecified organism Qualified Code(s): J18.1 - Lobar pneumonia, unspecified organism Is this a current diagnosis for this admission?: Yes (4) COPD (chronic obstructive pulmonary disease) Qualifiers: COPD type: COPD with acute exacerbation Qualified Code(s): J44.1 - Chronic obstructive pulmonary disease with (acute) exacerbation Is this a current diagnosis for this admission?: Yes (5) Congestive heart failure Qualifiers: Heart failure type: diastolic Heart failure chronicity: acute on chronic Qualified Code(s): I50.33 - Acute on chronic diastolic (congestive) heart failure Is this a current diagnosis for this admission?: Yes Plan: History of CHF BNP increased from 1770-->8540 ECHO from 2016 shows , AR and LVEF 60% Continue home dose lasix Continue home dose Plavix, Lasix and metoprolol (6) Diabetes mellitus type 2 in obese Is this a current diagnosis for this admission?: Yes Plan: Accu-Cheks AC at bedtime Humalog sliding scale insulin Initiate Lantus QHS Hgb A1C 6.6% (7) DNI (do not intubate) Is this a current diagnosis for this admission?: Yes Plan: Patient states she does not want to be intubated if she decompensates When asked about CPR, the patient states "well, CPR would be okay." Family member at bedside witnessed this conversation - Time Time Spent with patient: 15-24 minutes Medications reviewed and adjusted accordingly: Yes Anticipated discharge: Home - Inpatient Certification Based on my medical assessment, after consideration of the patient's comorbidi ties, presenting symptoms, or acuity I expect that the services needed warrant INPATIENT care.: Yes I certify that my determination is in accordance with my understanding of Marnie valencia's requirements for reasonable and necessary INPATIENT services [42 CFR 412.3e].: Yes Medical Necessity: Risk of Complication if Not Cared For in Hospital - Plan Summary Plan Summary: PO PAIN MEDICATION. INITIATE LANTUS.
[2018-09-27] MEDS: INSULIN GLARGINE,HUM.REC.ANLOG 300 UNIT/3 ML INSULN.PEN SUBCUT SCH (22:28)
[2018-09-27] MEDS: ATORVASTATIN CALCIUM 40 MG TABLET PO SCH (22:29)
[2018-09-28] MEDS: IPRATROPIUM/ALBUTEROL 0.5-2.5 MG/3 ML AMPUL NEB SCH ×6 (00:10→19:57)
[2018-09-28] MEDS: METHYLPREDNISOLONE INJ 40 MG/1 ML SDV IV SCH ×5 (00:39→23:07)
[2018-09-28] MEDS: LANSOPRAZOLE 15 MG TAB.RAP.DR PO SCH (06:14)
[2018-09-28] MEDS: ACETYLCYSTEINE 20% SOLN 800 MG/4 ML VIAL.NEB NEB SCH ×2 (07:37→19:57)
[2018-09-28] MEDS: INSULIN LISPRO 100 UNIT/ML 3 ML VIAL SUBCUT SCH ×4 (08:10→23:01)
[2018-09-28] MEDS: ASPIRIN 81 MG TABLET, ENT COATED PO SCH (09:57)
[2018-09-28] MEDS: FUROSEMIDE 40 MG TABLET PO SCH ×2 (09:57→17:31)
[2018-09-28] MEDS: LORATADINE 10 MG TABLET PO SCH (09:57)
[2018-09-28] MEDS: LEVOFLOXACIN 750 MG/D5W RTU 750 MG/150 ML RTUPB IV SCH (09:57)
[2018-09-28] MEDS: CLOPIDOGREL BISULFATE 75 MG TABLET PO SCH (09:58)
[2018-09-28] MEDS: POTASSIUM CHLORIDE 10 MEQ CAPSULE.ER PO SCH (09:58)
[2018-09-28] MEDS: CALCIUM CARBONATE 250 MG/VITAMIN D3 125 UNIT TABLET PO SCH (09:58)
[2018-09-28] MEDS: METOPROLOL SUCCINATE 25 MG TAB.SR.24H PO SCH (09:58)
[2018-09-28] MEDS: GUAIFENESIN 600 MG TABLET.SA PO SCH ×2 (09:58→23:01)
[2018-09-28] MEDS: POLYETHYLENE GLYCOL 3350 POWDER 17 GM/1 PACKET PO SCH (09:59)
[2018-09-28] MEDS: FAMOTIDINE INJ/PF 20 MG/2 ML SDV IV SCH (09:59)
[2018-09-28] MEDS: ENOXAPARIN SODIUM INJ 30 MG/0.3 ML DISP.SYRIN SUBCUT SCH (10:00)
[2018-09-28] MEDS: LIOTHYRONINE SODIUM 5 MCG TABLET PO SCH (10:01)
[2018-09-28] MEDS: TERBINAFINE HCL 250 MG TABLET PO SCH (10:01)
[2018-09-28 11:25] LABS: HEMATOCRIT 30.4 % (36.0-47.0); HEMOGLOBIN 9.9 g/dL (12.0-15.5); MEAN CORPUSCULAR HEMOGLOBIN 27.2 pg (27.0-33.4); MEAN CORPUSCULAR HGB CONC 32.5 g/dL (32.0-36.0); MEAN CORPUSCULAR VOLUME 84 fl (80-97); PLATELET COUNT 293 10^3/uL (150-450); RED BLOOD COUNT 3.64 10^6/uL (3.72-5.28); RED CELL DISTRIBUTION WIDTH 17.4 % (11.5-14.0); WHITE BLOOD COUNT 9.5 10^3/uL (4.0-10.5)
[2018-09-28] MEDS: CEFEPIME 2 GM/D5W RTU 2 GM/50 ML RTUPB IV SCH ×2 (11:25→23:02)
[2018-09-28 11:38] LABS: ANION GAP 10 (5-19); BLOOD UREA NITROGEN 41 mg/dL (7-20); CALCIUM 8.6 mg/dL (8.4-10.2); CARBON DIOXIDE 38 mmol/L (22-30); CHLORIDE 89 mmol/L (98-107); GLUCOSE 287 mg/dL (75-110); PHOSPHORUS 3.3 mg/dL (2.5-4.5); POTASSIUM 4.9 mmol/L (3.6-5.0); SODIUM 136.5 mmol/L (137-145)
[2018-09-28] MEDS ORDERED: FAMOTIDINE INJ/PF 20 MG/2 ML SDV IV SCH (22:00)
[2018-09-28] MEDS: INSULIN GLARGINE,HUM.REC.ANLOG 300 UNIT/3 ML INSULN.PEN SUBCUT SCH (23:01)
[2018-09-28] MEDS: ATORVASTATIN CALCIUM 40 MG TABLET PO SCH (23:02)
[2018-09-28] MEDS: FAMOTIDINE 20 MG TABLET PO SCH (23:02)
--- NOTE | 2018-09-28 23:04 | PDOC PROGRESS REPORT ---
Subjective Progress Note for:: 09/28/18 Subjective:: ALBERTO Geno DIAL is a 73 year old female with a PMH of ND (STENT X 2), CHF, HTN, HLD, COPD, GERD, DM, hypothyroidism, arthritis, anemia. Patient was admitted for hypoxic respiratory failure, sepsis and pneumonia. Patient was seen this morning on rounds. She is resting comfortably on BIPAP/AVAPS. No adventitious lung sounds. No central or peripheral cyanosis. T he patient complains of 'unable to cough up secretions.' She has stated this multiple times during her hospital stay. Increased dose of mucinex. Today, added mucomyst nebulizer tx. Reason For Visit: PNEUMONIA Physical Exam Vital Signs: Temp Pulse Resp BP Pulse Ox 98.4 F 58 L 16 156/41 H 99 09/28/18 20:00 09/28/18 20:00 09/28/18 20:00 09/28/18 20:00 09/28/18 20:00 Intake & Output 09/27/18 09/28/18 09/29/18 06:59 06:59 06:59 Intake Total 872 336 7082 Output Total 2400 2025 1875 Balance -2150 -1775 -065 Weight 119.8 kg 119 kg General appearance: PRESENT: morbidly obese Head exam: PRESENT: atraumatic Eye exam: PRESENT: conjunctiva pink, PERRLA Mouth exam: PRESENT: dry mucosa Teeth exam: PRESENT: poor dentation Neck exam: PRESENT: full ROM Respiratory exam: PRESENT: clear to auscultation joel, symmetrical. ABSENT: unlabored - ON BIPAP/AVAPS Cardiovascular exam: PRESENT: RRR Pulses: PRESENT: normal radial pulses, +1 pedal pulses bilateral Vascular exam: PRESENT: normal capillary refill GI/Abdominal exam: PRESENT: soft. ABSENT: distended, tenderness Rectal exam: PRESENT: deferred Extremities exam: PRESENT: pedal edema. ABSENT: full ROM Musculoskeletal exam: ABSENT: ambulatory - WHEELCHAIR, full ROM - PATIENT HAS A HX POLIO. ONLY PARTIAL ROM TO LLE Neurological exam: PRESENT: alert, awake, oriented to person, oriented to place, oriented to time, oriented to situation Psychiatric exam: PRESENT: appropriate affect Skin exam: PRESENT: dry, intact Results Laboratory Results: 09/28/18 03:58 09/28/18 03:58 09/28/18 09/28/18 09/28/18 03:58 03:58 03:58 WBC Cancelled 9.5 RBC Cancelled 3.64 L Hgb Cancelled 9.9 L Hct Cancelled 30.4 L MCV Cancelled 84 MCH Cancelled 27.2 MCHC Cancelled 32.5 RDW Cancelled 17.4 H Plt Count Cancelled 293 Sodium 136.5 L Potassium 4.9 Chloride 89 L Carbon Dioxide 38 H Anion Gap 10 BUN 41 H Creatinine 0.71 Est GFR ( Amer) > 60 Est GFR (Non-Af Amer) > 60 Glucose 287 H Calcium 8.6 Phosphorus 3.3 09/24/18 09/24/18 09/24/18 11:55 11:55 11:55 Creatine Kinase 96 CK-MB (CK-2) 2.12 Troponin I < 0.012 NT-Pro-B Natriuret Pep 1770 H 09/25/18 09/28/18 04:04 03:58 Creatine Kinase CK-MB (CK-2) Troponin I NT-Pro-B Natriuret Pep 8540 H 6700 H Impressions: Chest X-Ray 09/24/18 12:01 IMPRESSION: Marked left and right lower lobe pneumonia with left pleural effusion. Question aspiration complex. Vascular congestion. Assessment & Plan - Diagnosis (1) Sepsis Qualifiers: Sepsis type: sepsis due to unspecified organism Qualified Code(s): A41.9 - Sepsis, unspecified organism Is this a current diagnosis for this admission?: Yes Plan: Sepsis secondary to PNA as evidence by tachypnea, hypoxia, hypothermia and tachycardia CXR shows bibasilar infiltrates SPO2 upon arrival 64% --> improved to 96% on BIPAP Initial ABG shows severe respiratory acidosis (pH 7.11 CO2 117) Repeat ABG improved, still shows hypercapnia, and expected finding in a patient with COPD Lactate < 1.0 do not need to trend AVAPS for SPO2 greater than 80% Sputum cultures ordered Blood cultures pending Levaquin and cefepime for empiric antibiotic coverage Initially hypothermic, core temperature 95.9, requiring Bear hugger warming blanket. Now normothermic. Bear hugger d/c'd (2) Acute and chronic respiratory failure with hypoxia Is this a current diagnosis for this admission?: Yes Plan: Secondary to pneumonia CXR shows bibasilar infiltrates SPO2 upon arrival 64% --> improved to 96% on BIPAP Initial ABG shows severe respiratory acidosis (pH 7.11 CO2 117) Repeat ABG improved, still shows hypercapnia, an expected finding in a patient with COPD AVAPS for SPO2 greater than 80% Scheduled and PRN nebulizer treatments Scheduled IV Solumedrol Switched to AVAPS, closer to patient's home settings Sputum cultures ordered Levaquin and cefepime for empiric antibiotic coverage Patient does not wish to be intubated should her respiratory status decompensate (3) Pneumonia of both lower lobes Qualifiers: Pneumonia type: due to unspecified organism Qualified Code(s): J18.1 - Lobar pneumonia, unspecified organism Is this a current diagnosis for this admission?: Yes Plan: Plan as above (4) COPD (chronic obstructive pulmonary disease) Qualifiers: COPD type: COPD with acute exacerbation Qualified Code(s): J44.1 - Chronic obstructive pulmonary disease with (acute) exacerbation Is this a current diagnosis for this admission?: Yes Plan: Acute on chronic exacerbation of COPD Secondary to pneumonia Mucinex twice daily 1200mg Scheduled nebulizers and Solu-Medrol IV MUCOMYST NEBS Empiric antibiotic coverage Remaining plan as above (5) Congestive heart failure Qualifiers: Heart failure type: diastolic Heart failure chronicity: acute on chronic Qualified Code(s): I50.33 - Acute on chronic diastolic (congestive) heart failure Is this a current diagnosis for this admission?: Yes Plan: History of CHF BNP increased from 1770-->8540-->6700 ECHO from 2016 shows , AR and LVEF 60% Continue home dose lasix Continue home dose Plavix, Lasix and metoprolol (6) Diabetes mellitus type 2 in obese Is this a current diagnosis for this admission?: Yes Plan: Accu-Cheks AC at bedtime Humalog sliding scale insulin Initiate Lantus QHS Hgb A1C 6.6% (7) DNI (do not intubate) Is this a current diagnosis for this admission?: Yes Plan: Patient states she does not want to be intubated if she decompensates When asked about CPR, the patient states "well, CPR would be okay." Family member at bedside witnessed this conversation - Time Time Spent with patient: 15-24 minutes Anticipated discharge: Home with Homehealth Within: within 48 hours - Inpatient Certification Based on my medical assessment, after consideration of the patient's comorbidities, presenting symptoms, or acuity I expect that the services needed warrant INPATIENT care.: Yes I certify that my determination is in accordance with my understanding of Medicare's requirements for reasonable and necessary INPATIENT services [42 CFR 412.3e].: Yes Medical Necessity: Risk of Complication if Not Cared For in Hospital - Plan Summary Plan Summary: THIS PATIENT WILL LIKELY REQUIRE ACUTE REHAB OR HOME HEALTH UPON DISCHARGE. SHE IS STILL REQUIRING THE BIPAP/AVAPS FOR LONG PERIODS OF TIME DURING THE DAY. NORMALLY AT HOME SHE WEARS IT ONLY WHEN SLEEPING/NAPPING. ONCE THE PATIENT IS NO LONGER BIPAP DEPENDENT, SHE MAY GO HOME.
[2018-09-29] MEDS: IPRATROPIUM/ALBUTEROL 0.5-2.5 MG/3 ML AMPUL NEB SCH ×5 (00:06→20:03)
[2018-09-29 05:14] LABS: ANION GAP 8 (5-19); BLOOD UREA NITROGEN 46 mg/dL (7-20); CALCIUM 8.6 mg/dL (8.4-10.2); CARBON DIOXIDE 37 mmol/L (22-30); CHLORIDE 91 mmol/L (98-107); GLUCOSE 331 mg/dL (75-110); POTASSIUM 5.1 mmol/L (3.6-5.0); SODIUM 136.4 mmol/L (137-145)
[2018-09-29] MEDS: METHYLPREDNISOLONE INJ 40 MG/1 ML SDV IV SCH (05:46)
[2018-09-29] MEDS: LANSOPRAZOLE 15 MG TAB.RAP.DR PO SCH (05:46)
[2018-09-29] MEDS: ACETYLCYSTEINE 20% SOLN 800 MG/4 ML VIAL.NEB NEB SCH ×2 (07:49→20:03)
[2018-09-29 08:23] LABS: HEMOGLOBIN 10.2 g/dL (12.0-15.5); MEAN CORPUSCULAR HEMOGLOBIN 27.4 pg (27.0-33.4); MEAN CORPUSCULAR VOLUME 83 fl (80-97); PLATELET COUNT 302 10^3/uL (150-450); RED BLOOD COUNT 3.74 10^6/uL (3.72-5.28); RED CELL DISTRIBUTION WIDTH 17.9 % (11.5-14.0); WHITE BLOOD COUNT 10.2 10^3/uL (4.0-10.5)
[2018-09-29] MEDS: INSULIN LISPRO 100 UNIT/ML 3 ML VIAL SUBCUT SCH ×4 (09:31→23:03)
[2018-09-29] MEDS: FAMOTIDINE 20 MG TABLET PO SCH ×2 (09:32→22:58)
[2018-09-29] MEDS: GUAIFENESIN 600 MG TABLET.SA PO SCH ×2 (09:32→22:58)
[2018-09-29] MEDS: CLOPIDOGREL BISULFATE 75 MG TABLET PO SCH (09:33)
[2018-09-29] MEDS: LORATADINE 10 MG TABLET PO SCH (09:33)
[2018-09-29] MEDS: FUROSEMIDE 40 MG TABLET PO SCH ×2 (09:33→18:02)
[2018-09-29] MEDS: ASPIRIN 81 MG TABLET, ENT COATED PO SCH (09:33)
[2018-09-29] MEDS: POTASSIUM CHLORIDE 10 MEQ CAPSULE.ER PO SCH (09:34)
[2018-09-29] MEDS: METOPROLOL SUCCINATE 25 MG TAB.SR.24H PO SCH (09:35)
[2018-09-29] MEDS: ENOXAPARIN SODIUM INJ 30 MG/0.3 ML DISP.SYRIN SUBCUT SCH (09:35)
[2018-09-29] MEDS: CALCIUM CARBONATE 250 MG/VITAMIN D3 125 UNIT TABLET PO SCH (09:35)
[2018-09-29] MEDS: LEVOFLOXACIN 750 MG/D5W RTU 750 MG/150 ML RTUPB IV SCH (09:36)
[2018-09-29] MEDS: POLYETHYLENE GLYCOL 3350 POWDER 17 GM/1 PACKET PO SCH (09:36)
[2018-09-29] MEDS: LIOTHYRONINE SODIUM 5 MCG TABLET PO SCH (09:37)
[2018-09-29] MEDS: TERBINAFINE HCL 250 MG TABLET PO SCH (09:37)
[2018-09-29] MEDS: CEFEPIME 2 GM/D5W RTU 2 GM/50 ML RTUPB IV SCH (11:16)
[2018-09-29] MEDS ORDERED: METHYLPREDNISOLONE INJ 40 MG/1 ML SDV IV SCH ×2 (14:00→22:00)
--- NOTE | 2018-09-29 15:22 | PDOC PROGRESS REPORT ---
Subjective Progress Note for:: 09/29/18 Subjective:: ALBERTO DIAL is a 73 year old female with a PMH of MD (STENT X 2), CHF, HTN, HLD, COPD, GERD, DM, hypothyroidism, arthritis, anemia. Patient was admitted for hypoxic respiratory failure, sepsis and pneumonia. The patient was seen on morning rounds with nursing present. She was found resting in bed comfortably on her baseline oxygen requirement with use of BiP AP/develops overnight. Patient did not use her home trilogy machine; reportedly respiratory therapy did not feel comfortable initiating this device. The patient reports that she is feeling much better and her only hesitancy with regard to discharge home is that she continues to have difficulty with clearing chest congestion. The patient reports that she typically has difficulty with ineffective cough secondary to history of polio. She is offered discharged to SNF/short-term rehab which she adamantly declines. She denies fever, chills, chest pain, palpitations, dyspnea at rest, abdominal pain, nausea vomiting diarrhea. No concerns per nursing. Reason For Visit: PNEUMONIA Physical Exam Vital Signs: Temp Pulse Resp BP Pulse Ox 97.9 F 67 17 143/51 H 97 09/29/18 12:19 09/29/18 12:20 09/29/18 12:20 09/29/18 12:19 09/29/18 12:20 Intake & Output 09/28/18 09/29/18 09/30/18 06:59 06:59 06:59 Intake Total 250 1800 600 Output Total 2025 2975 1300 Balance -1775 -1175 -700 Weight 119 kg 119 kg General appearance: PRESENT: no acute distress, morbidly obese, well-developed, well-nourished Head exam: PRESENT: atraumatic, normocephalic Eye exam: PRESENT: conjunctiva pink, EOMI, PERRLA. ABSENT: scleral icterus Ear exam: PRESENT: normal external ear exam Mouth exam: PRESENT: moist, tongue midline Teeth exam: PRESENT: poor dentation Neck exam: ABSENT: carotid bruit, JVD, lymphadenopathy, thyromegaly Respiratory exam: PRESENT: clear to auscultation joel. ABSENT: rales, rhonchi, wheezes Cardiovascular exam: PRESENT: RRR, systolic murmur. ABSENT: diastolic murmur, rubs Pulses: PRESENT: +1 pedal pulses bilateral Vascular exam: PRESENT: normal capillary refill GI/Abdominal exam: PRESENT: normal bowel sounds, soft. ABSENT: distended, guarding, mass, organolmegaly, rebound, tenderness Rectal exam: PRESENT: deferred Extremities exam: PRESENT: full ROM, pedal edema - L>R. ABSENT: calf tenderness, clubbing Neurological exam: PRESENT: alert, awake, oriented to person, oriented to place, oriented to time, oriented to situation, CN II-XII grossly intact. ABSENT: motor sensory deficit Psychiatric exam: PRESENT: appropriate affect, normal mood. ABSENT: homicidal ideation, suicidal ideation Skin exam: PRESENT: dry, intact, warm. ABSENT: cyanosis, rash Results Laboratory Results: 09/29/18 04:13 09/29/18 04:13 09/29/18 09/29/18 04:13 04:13 WBC 10.2 RBC 3.74 Hgb 10.2 L Hct 31.0 L MCV 83 MCH 27.4 MCHC 33.0 RDW 17.9 H Plt Count 302 Sodium 136.4 L Potassium 5.1 H Chloride 91 L Carbon Dioxide 37 H Anion Gap 8 BUN 46 H Creatinine 0.91 Est GFR ( Amer) > 60 Est GFR (Non-Af Amer) > 60 Glucose 331 H Calcium 8.6 Magnesium 2.2 09/24/18 13:37 Blood Blood Culture - Final NO GROWTH IN 5 DAYS 09/24/18 11:55 Blood Blood Culture - Final NO GROWTH IN 5 DAYS 09/24/18 09/24/18 09/24/18 11:55 11:55 11:55 Creatine Kinase 96 CK-MB (CK-2) 2.12 Troponin I < 0.012 NT-Pro-B Natriuret Pep 1770 H 09/25/18 09/28/18 04:04 03:58 Creatine Kinase CK-MB (CK-2) Troponin I NT-Pro-B Natriuret Pep 8540 H 6700 H Impressions: Chest X-Ray 09/24/18 12:01 IMPRESSION: Marked left and right lower lobe pneumonia with left pleural effusion. Question aspiration complex. Vascular congestion. Assessment & Plan - Diagnosis (1) Sepsis Qualifiers: Sepsis type: sepsis due to unspecified organism Qualified Code(s): A41.9 - Sepsis, unspecified organism Is this a current diagnosis for this admission?: Yes Plan: Resolved; secondary to pneumonia, able, evidenced by tachypnea, hypoxia, hypothermia, and tachycardia. CXR shows bibasilar infiltrates SPO2 upon arrival 64% --> improved to 96% on BIPAP Initial ABG shows severe respiratory acidosis (pH 7.11 CO2 117) Repeat ABG improved, still shows hypercapnia, and expected finding in a patient with COPD Lactate < 1.0 do not need to trend IV cefepime and Levaquin are discontinued today as the patient has been afebrile with normal WBC for greater than 48 hours with clinical resolution of her symptoms. We will continue p.o. Levaquin x3 to complete full course of anabolic therapy for pneumonia. Have added oral Pen VK for treatment of enterococcis faecalis with PCN sensitivity. (2) Acute and chronic respiratory failure with hypoxia Is this a current diagnosis for this admission?: Yes Plan: Acute phase is resolved; patient has returned to her baseline oxygen and BiPAP/events requirement. CXR shows bibasilar infiltrates SPO2 upon arrival 64% --> improved to 96% on BIPAP Initial ABG shows severe respiratory acidosis (pH 7.11 CO2 117) Repeat ABG improved, still shows hypercapnia, an expected finding in a patient with COPD Continue supplemental oxygen and a VATS as needed to maintain oxygen saturations >89% Continue scheduled (decreased frequency) and as needed nebulizer treatments. Have begun weaning IV Solu-medrol Continue Mucinex nebulizer treatments. Twice daily Mucinex p.o. Chest physiotherapy. Incentive spirometer and flutter valve to bedside. Pulmonology is consulted; appreciate Dr. Sanders's assistance. (3) COPD (chronic obstructive pulmonary disease) Qualifiers: COPD type: COPD with acute exacerbation Qualified Code(s): J44.1 - Chronic obstructive pulmonary disease with (acute) exacerbation Is this a current diagnosis for this admission?: Yes Plan: Acute exacerbation has resolved. Patient does have chronic COPD. Management as above. (4) Congestive heart failure Qualifiers: Heart failure type: diastolic Heart failure chronicity: acute on chronic Qualified Code(s): I50.33 - Acute on chronic diastolic (congestive) heart failure Is this a current diagnosis for this admission?: Yes Plan: History of CHF BNP increased from 1770-->8540-->6700 ECHO from 2016 shows , AR and LVEF 60% Continue cardiac diet, daily weights, strict I&O's Continue home dose Plavix, metoprolol, and Lasix. (5) Pneumonia of both lower lobes Qualifiers: Pneumonia type: due to unspecified organism Qualified Code(s): J18.1 - Lobar pneumonia, unspecified organism Is this a current diagnosis for this admission?: Yes Plan: As above. (6) Diabetes mellitus type 2 in obese Is this a current diagnosis for this admission?: Yes Plan: A1c 6.6% Cardiac/Consistent Carb diet. Accu-Cheks before meals and at bedtime with Humalog for sliding scale coverage. Continue Lantus nightly. The registered dietitian and medical educator consulted. (7) Morbid obesity with BMI of 45.0-49.9, adult Is this a current diagnosis for this admission?: Yes Plan: Dietary discretion is advised. Registered dietitian and medical educator consulted. (8) DNI (do not intubate) Is this a current diagnosis for this admission?: Yes Plan: Patient states she does not want to be intubated if she decompensates When asked about CPR, the patient states "well, CPR would be okay." Today, patient requests Palliative Care consultation; reports she was previously on hospice. Discharge planning is consulted. - Time Time Spent with patient: 15-24 minutes Medications reviewed and adjusted accordingly: Yes Anticipated discharge: Home with Homehealth Within: within 24 hours - Plan Summary Plan Summary: Spoke with Dr. Sanders today; patient is near baseline. Pulmonology will attempt to obtain CoughAssist device secondary to her polio. Patient likely ready for discharge in the morning.
[2018-09-29] MEDS ORDERED: INSULIN LISPRO 100 UNIT/ML 3 ML VIAL SUBCUT ONE (16:00)
[2018-09-29] MEDS: ATORVASTATIN CALCIUM 40 MG TABLET PO SCH (22:58)
[2018-09-29] MEDS: INSULIN GLARGINE,HUM.REC.ANLOG 300 UNIT/3 ML INSULN.PEN SUBCUT SCH (23:03)
[2018-09-29] MEDS: PENICILLIN V POTASSIUM 250 MG TABLET PO SCH (23:05)
[2018-09-30] MEDS: IPRATROPIUM/ALBUTEROL 0.5-2.5 MG/3 ML AMPUL NEB SCH ×2 (01:56→08:09)
[2018-09-30] MEDS: PENICILLIN V POTASSIUM 250 MG TABLET PO SCH ×2 (05:29→13:59)
[2018-09-30] MEDS: LANSOPRAZOLE 15 MG TAB.RAP.DR PO SCH (05:29)
[2018-09-30] MEDS: INSULIN LISPRO 100 UNIT/ML 3 ML VIAL SUBCUT SCH ×2 (07:59→12:24)
[2018-09-30 08:06] LABS: HEMOGLOBIN 10.6 g/dL (12.0-15.5); MEAN CORPUSCULAR HGB CONC 32.2 g/dL (32.0-36.0); MEAN CORPUSCULAR VOLUME 84 fl (80-97); PLATELET COUNT 314 10^3/uL (150-450); RED BLOOD COUNT 3.93 10^6/uL (3.72-5.28); RED CELL DISTRIBUTION WIDTH 17.4 % (11.5-14.0)
[2018-09-30] MEDS: ACETYLCYSTEINE 20% SOLN 800 MG/4 ML VIAL.NEB NEB SCH (08:09)
[2018-09-30 08:32] LABS: ANION GAP 9 (5-19); BLOOD UREA NITROGEN 53 mg/dL (7-20); CALCIUM 8.9 mg/dL (8.4-10.2); CARBON DIOXIDE 39 mmol/L (22-30); CHLORIDE 88 mmol/L (98-107); GLUCOSE 268 mg/dL (75-110); POTASSIUM 4.9 mmol/L (3.6-5.0); SODIUM 136.3 mmol/L (137-145)
[2018-09-30] MEDS ORDERED: LEVOFLOXACIN 750 MG TABLET PO SCH (10:00)
[2018-09-30] MEDS ORDERED: METHYLPREDNISOLONE INJ 40 MG/1 ML SDV IV SCH (10:00)
[2018-09-30] MEDS: CALCIUM CARBONATE 250 MG/VITAMIN D3 125 UNIT TABLET PO SCH (10:58)
[2018-09-30] MEDS: GUAIFENESIN 600 MG TABLET.SA PO SCH (10:59)
[2018-09-30] MEDS: LORATADINE 10 MG TABLET PO SCH (10:59)
[2018-09-30] MEDS: METOPROLOL SUCCINATE 25 MG TAB.SR.24H PO SCH (11:00)
[2018-09-30] MEDS: LIOTHYRONINE SODIUM 5 MCG TABLET PO SCH (11:00)
[2018-09-30] MEDS: CLOPIDOGREL BISULFATE 75 MG TABLET PO SCH (11:00)
[2018-09-30] MEDS: FUROSEMIDE 40 MG TABLET PO SCH (11:00)
[2018-09-30] MEDS: FAMOTIDINE 20 MG TABLET PO SCH (11:01)
[2018-09-30] MEDS: ASPIRIN 81 MG TABLET, ENT COATED PO SCH (11:01)
[2018-09-30] MEDS: POTASSIUM CHLORIDE 10 MEQ CAPSULE.ER PO SCH (11:01)
[2018-09-30] MEDS: TERBINAFINE HCL 250 MG TABLET PO SCH (11:01)
[2018-09-30] MEDS: ENOXAPARIN SODIUM INJ 30 MG/0.3 ML DISP.SYRIN SUBCUT SCH (11:02)
[2018-09-30] MEDS: POLYETHYLENE GLYCOL 3350 POWDER 17 GM/1 PACKET PO SCH (11:02)
[2018-09-30] MEDS ORDERED: INSULIN LISPRO 100 UNIT/ML 3 ML VIAL SUBCUT ONE (13:00)
[2018-09-30 14:50] VITALS: BP 155/54
[2018-09-30] MEDS ORDERED: IPRATROPIUM/ALBUTEROL 0.5-2.5 MG/3 ML AMPUL NEB SCH (16:00)
--- NOTE | 2018-10-03 13:20 | PDOC DISCHARGE SUMMARY ---
General - Admit/Disc Date/PCP Admission Date/Primary Care Provider: 09/24/18 15:37 Discharge Date: 09/30/18 - Discharge Diagnosis (1) Sepsis Is this a current diagnosis for this admission?: Yes Summary: Resolved; secondary to pneumonia, evidenced by tachypnea, hypoxia, hypothermia, and tachycardia. CXR shows bibasilar infiltrates SPO2 upon arrival 64% --> improved to 96% on BIPAP Initial ABG shows severe respiratory acidosis (pH 7.11 CO2 117) Repeat ABG improved, still shows hypercapnia, and expected finding in a patient with COPD Lactate < 1.0 The patient was empirically placed on IV cefepime and Levaquin. Cefepime was discontinued and she was transitioned to p.o. Levaquin after 5 days of IV therapy. She completed a full Levaquin course while inpatient. Urine culture revealed PCN sensitive enterococcis faecalis. the patient confirmed dysuria; she was placed on oral Pen VK and provided a prescription to complete her therapy post discharge. (2) Acute and chronic respiratory failure with hypoxia Is this a current diagnosis for this admission?: Yes Summary: Acute phase is resolved; patient has returned to her baseline oxygen and BiPAP/AVAPS requirement. CXR shows bibasilar infiltrates SPO2 upon arrival 64% --> improved to 96% on BIPAP Initial ABG shows severe respiratory acidosis (pH 7.11 CO2 117) Repeat ABG improved, still shows hypercapnia, an expected finding in a patient with COPD The patient was initially supported with supplemental oxygen, BiPAP, scheduled and as needed nebulizer treatments, IV Solu-Medrol, Mucinex nebs and p.o. Mucinex, chest physiotherapy, incentive spirometer and flutter valve therapies. Pulmonology was consulted. As the patient's clinical condition improved; her nebulizer schedule and steroid dosing was weaned. At discharge, the patient returned to her baseline oxygen requirement. She was provided a prescriptions for a prednisone steroid taper and for refills of her DuoNeb solution. (3) COPD (chronic obstructive pulmonary disease) Is this a current diagnosis for this admission?: Yes Summary: Acute exacerbation has resolved. Evaluation management as above. (4) Congestive heart failure Is this a current diagnosis for this admission?: Yes Summary: History of CHF BNP increased from 1770-->8540-->6700 ECHO from 2016 shows , AR and LVEF 60% She was placed on a cardiac diet with daily weights and strict I&O's. Her home dose Plavix, metoprolol and Lasix were continued. Patient did receive additional furosemide for diuresis. She was provided supplemental oxygen and BiPAP support. Patient demonstrated clinical improvement with resolution of her adventitious lung sounds and decreased pedal edema. She is returned to her baseline oxygen requirement. (5) Pneumonia of both lower lobes Is this a current diagnosis for this admission?: Yes Summary: Resolved; patient received full course of antibiotic therapies. Remaining evaluation and management as described above. (6) Diabetes mellitus type 2 in obese Is this a current diagnosis for this admission?: Yes Summary: Patient was noted to have hyperglycemia secondary to steroids. She was placed on a cardiac/consistent carb diet with Accu-Cheks before meals and at bedtime and Humalog for sliding scale coverage. She was also provided Lantus nightly and have the opportunity meet with the registered dietitian and mailing specialist. The patient was encouraged to maintain adequate p.o. fluid intake with strict c ompliance to a low-carb diet while on her steroid taper. At discharge she is to resume her home medication regiment as she is adequately controlled with an A1c of 6.6%. (7) Morbid obesity with BMI of 45.0-49.9, adult Is this a current diagnosis for this admission?: Yes Summary: Dietary discretion was strongly advised. Registered dietitian and mailing specialist consulted. (8) DNI (do not intubate) Is this a current diagnosis for this admission?: Yes Summary: The patient requested a Palliative Care consultation as she has previously been on hospice services. Nurse liaison was notified; will follow up as outpatient. - Additional Information Resuscitation Status: Do Not Intubate Discharge Diet: Cardiac, Diabetic Discharge Activity: Activity As Tolerated, Balance Activity w/Rest Prescriptions: Guaifenesin [Mucinex Sr 600 mg Tablet.sa] 600 mg PO Q12 #28 tablet.sa Ipratropium/Albuterol Sulfate [Duoneb 3 ml Ampul] 3 ml NEB Q8HP PRN #90 vial.neb PRN Reason: Penicillin V Potassium [Penicillin Vk 250 mg Tablet] 250 mg PO Q8 #30 tablet Prednisone [Deltasone] 20 mg PO DAILY #15 tablet Home Medications: Albuterol Sulfate [Ventolin 0.083% Neb 2.5 mg/3 mL Ampul] 1 vial NEB RTTIDP PRN 09/24/18 Aspirin [Ecotrin 81 mg EC Tablet] 81 mg PO DAILY 09/24/18 Atorvastatin Calcium [Lipitor 40 mg Tablet] 40 mg PO QHS 09/24/18 Budesonide/Formoterol Fumarate [Symbicort HFA 160-4.5 mcg Inhaler 6 gm] 2 puff IH Q12 09/24/18 Calcium Carbonate/Vitamin D3 [Calcium 500-Vit D3 200 Tablet] 1 each PO DAILY 09/24/18 Clopidogrel Bisulfate [Plavix 75 mg Tablet] 75 mg PO DAILY 09/24/18 Diclofenac Sodium [Voltaren] 1 gm TP TIDP PRN 09/24/18 Fexofenadine HCl [Rin Allergy] 180 mg PO DAILY 09/24/18 Furosemide [Lasix 40 mg Tablet] 40 mg PO BID 09/24/18 Glipizide [Glucotrol 10 mg Tablet] 10 mg PO QAM 09/24/18 Liothyronine Sodium [Cytomel] 10 mcg PO DAILY 09/24/18 Metformin HCl [Glucophage 500 mg Tablet] 500 mg PO BIDACBS 09/24/18 Metoprolol Succinate [Toprol Xl] 25 mg PO DAILY 09/24/18 Nitroglycerin [Nitrostat 0.4 mg (1/150 Gr) Tabs 25/Bottle] 1 tab SL Q5MP PRN 09/24/18 Polyethylene Glycol 3350 [Miralax Powder 17 gm/Packet] 1 packet PO DAILY 09/24/18 Potassium Chloride 30 meq PO DAILY 09/24/18 Rabeprazole Sodium [Aciphex] 20 mg PO DAILY 09/24/18 Terbinafine HCl [Lamisil 250 mg Tablet] 250 mg PO DAILY 09/24/18 Acetaminophen [Tylenol 325 mg Tablet] 650 mg PO Q4HP PRN tablet 09/30/18 Guaifenesin [Mucinex Sr 600 mg Tablet.sa] 600 mg PO Q12 #28 tablet.sa 09/30/18 Ipratropium/Albuterol Sulfate [Duoneb 3 ml Ampul] 3 ml NEB Q8HP PRN #90 vial.neb 09/30/18 Penicillin V Potassium [Penicillin Vk 250 mg Tablet] 250 mg PO Q8 #30 tablet 09/30/18 Prednisone [Deltasone] 20 mg PO DAILY #15 tablet 09/30/18 History of Present Illness History of Present Illness: Per H&P by Hallie Sagastume NP: ALBERTO Geno DIAL is a 73 year old female with a PMH of MA (STENT X 2), CHF, HTN, HLD, COPD, GERD, DM, hypothyroidism, arthritis, anemia. She presented to [facility] ER this morning for severe shortness of breath. The patient wears her trilogy every night and normally wakes up in the morning feeling short of breath. The patient reports she felt extremely short of breath this morning and notified her family member, who called EMS. CPAP was initiated en route to the hospital, but despite these efforts, the patient's initial SPO2 in the ER was 64%. The patient was completely obtunded. Family member reports that the patient did not wish to be intubated or resuscitated. ED MD placed the patient on BiPAP and the patient's respiratory status greatly improved. Additionally, the patient's level of alertness began to improve. Laboratory studies revealed marked leukocytosis (WBC 23.2) with hemoglobin 10.7, ABG reveals acute respiratory acidosis with hypoxic respiratory failure and hypercarbia with a pH of 7.11 and a PCO2 of 136.8. Chemistries are grossly unremarkable, only an elevated BUN at 28 and an elevated glucose of 319, lactic acid is normal. Troponin is unremarkable, CXR shows both pulmonary vascular congestion and bilateral lower lobe infiltrates. The patient was treated with IV Levaquin and cefepime for her pneumonia. 125 mg Solu-Medrol IV and a DuoNeb treatment was administered for her COPD exacerbation. Plan to admit patient to hospitalist service for sepsis, pneumonia and COPD exacerbation. Physical Exam Vital Signs: Temp Pulse Resp BP Pulse Ox 97.9 F 62 18 155/54 H 100 09/30/18 14:49 09/30/18 14:49 09/30/18 14:49 09/30/18 14:49 09/30/18 14:49 General appearance: PRESENT: no acute distress, morbidly obese, well-developed, well-nourished Head exam: PRESENT: atraumatic, normocephalic Eye exam: PRESENT: conjunctiva pink, EOMI, PERRLA. ABSENT: scleral icterus Ear exam: PRESENT: normal external ear exam Mouth exam: PRESENT: moist, tongue midline Neck exam: ABSENT: carotid bruit, JVD, lymphadenopathy, thyromegaly Respiratory exam: PRESENT: clear to auscultation joel. ABSENT: rales, rhonchi, wheezes Cardiovascular exam: PRESENT: RRR. ABSENT: diastolic murmur, rubs, systolic murmur Pulses: PRESENT: normal dorsalis pedis pul Vascular exam: PRESENT: normal capillary refill GI/Abdominal exam: PRESENT: normal bowel sounds, soft. ABSENT: distended, guarding, mass, organolmegaly, rebound, tenderness Rectal exam: PRESENT: deferred Extremities exam: PRESENT: full ROM - limited LLE r/t post-polio, pedal edema - trace. ABSENT: calf tenderness, clubbing Neurological exam: PRESENT: alert, awake, oriented to person, oriented to place, oriented to time, oriented to situation, CN II-XII grossly intact. ABSENT: mot or sensory deficit Psychiatric exam: PRESENT: appropriate affect, normal mood. ABSENT: homicidal ideation, suicidal ideation Skin exam: PRESENT: dry, intact, warm. ABSENT: cyanosis, rash Results Laboratory Results: 09/30/18 07:15 09/30/18 07:15 09/24/18 09/24/18 09/24/18 11:55 11:55 11:55 Creatine Kinase 96 CK-MB (CK-2) 2.12 Troponin I < 0.012 NT-Pro-B Natriuret Pep 1770 H 09/25/18 09/28/18 09/30/18 04:04 03:58 07:15 Creatine Kinase CK-MB (CK-2) Troponin I NT-Pro-B Natriuret Pep 8540 H 6700 H 5070 H Impressions: Chest X-Ray 09/24/18 12:01 IMPRESSION: Marked left and right lower lobe pneumonia with left pleural effusi on. Question aspiration complex. Vascular congestion. Qualifiers - * PATIENT BEING DISCHARGED WITH ANY OF THE FOLLOWING DIAGNOSIS: Heart Failure HF Pt being discharged on ACEI for LVEF less than 40%?: No Reason(s) for not prescribing ACEI:: Not indicated HF Pt being discharged on ARBS for LVEF less than 40%?: No Reason(s) for not prescribing ARBS:: Not indicated HF Pt with Afib discharged with Warfarin?: No Reason(s) for not prescribing Warfarin:: Not indicated HF Pt discharged on evidence-based Beta Yuniel:: Yes Plan Discharge Plan: Discharged home with home health nursing, physical therapy. Follow-up with primary care provider within 1 week. Complete antibiotic therapy for Enterococcus for faecalis UTI. Her Curseen's office and schedule an appointment for the earliest availability. Return to emergency department as needed for concerning symptoms. Time Spent: Less than 30 Minutes
== END 2018-09-30 15:41 | disposition home health service (06) | DRG 871 ==
LOC: ER 11:49 → EH 15:37 → 3N 20:45
PROVIDERS: ADMIT Internal Medicine; ATTEND Internal Medicine
PROC: 5A09457 Assistance with Respiratory Ventilation, 24-96 Consecutive Hours, Continuous Positive Airway Pressure (ICD-10-PCS; principal; 2018-09-24)
PROC: 3E0F73Z Introduction of Anti-inflammatory into Respiratory Tract, Via Natural or Artificial Opening (ICD-10-PCS; 2018-09-24)
DX: A41.9 Sepsis, unspecified organism (principal); J96.21 Acute and chronic respiratory failure with hypoxia; J18.1 Lobar pneumonia, unspecified organism; I50.33 Acute on chronic diastolic (congestive) heart failure; J96.22 Acute and chronic respiratory failure with hypercapnia; J44.1 Chronic obstructive pulmonary disease with (acute) exacerbation; Z68.42 Body mass index [BMI] 45.0-49.9, adult; J44.0 Chronic obstructive pulmonary disease with (acute) lower respiratory infection; T38.0X5A Adverse effect of glucocorticoids and synthetic analogues, initial encounter; E78.00 Pure hypercholesterolemia, unspecified; K21.9 Gastro-esophageal reflux disease without esophagitis; E03.9 Hypothyroidism, unspecified; D64.9 Anemia, unspecified; I11.0 Hypertensive heart disease with heart failure; G47.30 Sleep apnea, unspecified; M15.9 Polyosteoarthritis, unspecified; E66.01 Morbid (severe) obesity due to excess calories; F32.9 Major depressive disorder, single episode, unspecified; B95.2 Enterococcus as the cause of diseases classified elsewhere; E11.65 Type 2 diabetes mellitus with hyperglycemia; I25.2 Old myocardial infarction; Z66 Do not resuscitate; Z79.02 Long term (current) use of antithrombotics/antiplatelets; Z79.899 Other long term (current) drug therapy; Z79.82 Long term (current) use of aspirin; Z79.84 Long term (current) use of oral hypoglycemic drugs; Z95.5 Presence of coronary angioplasty implant and graft; Z90.710 Acquired absence of both cervix and uterus; Z87.891 Personal history of nicotine dependence; Z83.3 Family history of diabetes mellitus; Z82.49 Family history of ischemic heart disease and other diseases of the circulatory system; Z88.6 Allergy status to analgesic agent
CPT/HCPCS: 36415; 36600; 51702; 71045; 80048; 80053; 81001; 82550; 82553; 82803; 82962; 83036; 83605; 83735; 83880; 84100; 84484; 85025; 85027; 85610; 87040; 87086; 87088; 87186; 93005; 93010; 94640; 94660; 94667; 94668; 99291; J0692; J1650; J1815; J1940; J1956; J2920; J2930; J3490; J7620; S0028

== ENCOUNTER 2018-10-17 04:33 | Inpatient (IN) | payer MEDICARE ==
[2018-10-17] MEDS ORDERED: ASPIRIN 81 MG TABLET, CHEWABLE PO ONE (04:47)
[2018-10-17 05:20] LABS: ABSOLUTE BASOPHILS # (AUTO) 0.1 10^3/uL (0.0-0.2); ABSOLUTE EOSINOPHILS # (AUTO) 0.3 10^3/uL (0.0-0.6); ABSOLUTE LYMPHOCYTES (AUTO) 0.9 10^3/uL (0.5-4.7); ABSOLUTE MONOCYTES (AUTO) 0.4 10^3/uL (0.1-1.4); BASOPHILS % (AUTO) 1.4 % (0-2); EOSINOPHILS % (AUTO) 3.3 % (0-6); HEMATOCRIT 28.1 % (36.0-47.0); HEMOGLOBIN 9.3 g/dL (12.0-15.5); MEAN CORPUSCULAR HEMOGLOBIN 27.6 pg (27.0-33.4); MEAN CORPUSCULAR VOLUME 84 fl (80-97); MONOCYTES % (AUTO) 5.8 % (3-13); PLATELET COUNT 203 10^3/uL (150-450); RED BLOOD COUNT 3.37 10^6/uL (3.72-5.28); RED CELL DISTRIBUTION WIDTH 16.9 % (11.5-14.0); SEGMENTED NEUTROPHILS % (AUTO) 77.5 % (42-78); TOTAL CELLS COUNTED % (AUTO) 100 %; WHITE BLOOD COUNT 7.7 10^3/uL (4.0-10.5)
[2018-10-17 05:34] LABS: ALANINE AMINOTRANSFERASE 19 U/L (9-52); ALBUMIN 3.3 g/dL (3.5-5.0); ALKALINE PHOSPHATASE 64 U/L (38-126); ASPARTATE AMINO TRANSFERASE 14 U/L (14-36); BILIRUBIN,DIRECT 0.3 mg/dL (0.0-0.4); BILIRUBIN,TOTAL 0.5 mg/dL (0.2-1.3); BLOOD UREA NITROGEN 16 mg/dL (7-20); CALCIUM 8.6 mg/dL (8.4-10.2); CHLORIDE 90 mmol/L (98-107); CREATINE KINASE 63 U/L (30-135); GLUCOSE 366 mg/dL (75-110); POTASSIUM 3.4 mmol/L (3.6-5.0); SODIUM 139.2 mmol/L (137-145); TOTAL PROTEIN 5.6 g/dL (6.3-8.2)
--- NOTE | 2018-10-17 05:37 | RADIOLOGY REPORT (SQ) ---
EXAM DESCRIPTION: XR CHEST 1 VIEW COMPLETED DATE/TME: 10/17/2018 04:47 CLINICAL HISTORY: 73 years, Female, SOB, crackles, hypoxia at home COMPARISON: 09/24/2018 NUMBER OF VIEWS: One TECHNIQUE: AP view of the chest LIMITATIONS: None. FINDINGS: The lungs are clear. The heart is enlarged. There is no pneumothorax or large pleural effusion. There is levoscoliosis of the thoracic spine. IMPRESSION: No acute cardiopulmonary abnormality copyright 2010 [email or web address]- All Rights Reserved
[2018-10-17 05:46] LABS: CREATINE KINASE MB 1.65 ng/mL (<4.55); TROPONIN I 0.032 ng/mL
[2018-10-17 05:54] LABS: ANION GAP 8 (5-19)
[2018-10-17 05:56] LABS: CARBON DIOXIDE 41 mmol/L (22-30)
[2018-10-17] MEDS ORDERED: FUROSEMIDE INJ/PF 40 MG/4 ML SDV IV ONE (06:03)
[2018-10-17] MEDS ORDERED: POTASSIUM CHLORIDE 10 MEQ CAPSULE.ER PO ONE (06:03)
[2018-10-17] MEDS ORDERED: MAGNESIUM HYDROXIDE SUSP 30 ML UDCUP PO PRN (06:13)
[2018-10-17] MEDS ORDERED: MAG HYDROX/AL HYDROX/SIMETH SUSP 30 ML UDCUP PO PRN (06:13)
[2018-10-17] MEDS ORDERED: DEXTROSE 40% GEL 15 GM TUBE PO PRN ×2 (06:13)
[2018-10-17] MEDS ORDERED: IPRATROPIUM/ALBUTEROL 0.5-2.5 MG/3 ML AMPUL NEB PRN (06:13)
[2018-10-17] MEDS ORDERED: DEXTROSE 50%-WATER 25 GM/50 ML DISP.SYRIN IV PRN ×2 (06:13)
[2018-10-17] MEDS ORDERED: GLUCAGON,HUMAN RECOMB 1 MG INJ IM PRN (06:13)
--- NOTE | 2018-10-17 06:22 | ER Document Report ---
Entered by BERNARDA PURCELL SCRIBE 10/17/18 0557 Acting as scribe for:XIMENA KOVACS DO ED Respiratory Problem - General Chief Complaint: Breathing Difficulty Stated Complaint: BREATHING PROBLEMS Time Seen by Provider: 10/17/18 04:36 Primary Care Provider: JEEVAN EARLY MD [Primary Care Provider] - Follow up as needed Mode of Arrival: Ambulatory Notes: 73-year-old female who presents to the emergency department today with complaints of increasing shortness of breath over the last day or two. Patient states she was hospitalized approximately 1 month ago for "double pneumonia". Patient states she felt better when she went home and had felt well until the last few days. Patient states her at home oxygen saturation was in the upper 70s and only as high as the mid 80s on her 2.5 L of home oxygen. Patient states she has some chest pain as well. Patient states she took nitroglycerin which did nothing for her pain or shortness of breath. Patient also mentions that she was started on Tamiflu 3 days ago and has had associated diarrhea since then. When EMS picked her up they increased her oxygen 4 L via nasal cannula and this resolved her chest pain and her shortness of breath. Patient normally is only supposed to use 2-2-1/2 L. TRAVEL OUTSIDE OF THE [place] IN LAST 30 DAYS: No - Related Data Allergies/Adverse Reactions: hydromorphone HCl [From Dilaudid] Allergy (Severe, Verified 09/24/18 17:12) Respiratory arrest codeine [Codeine] Allergy (Intermediate, Verified 09/24/18 17:12) Hallucinations Past Medical History - General Information source: Patient - Social History Smoking Status: Former Smoker Cigarette use (# per day): Yes Frequency of alcohol use: None Drug Abuse: None Lives with: Family Family History: Reviewed & Not Pertinent, DM, Hyperlipidemia, Hypertension - Past Medical History Cardiac Medical History: Reports: Hx Congestive Heart Failure - Diastolic, Hx Coronary Artery Disease, Hx Heart Attack - cardiac stents x 2, Hx Hypercholesterolemia, Hx Hypertension, Hx Heart Murmur - aortic stenosis Pulmonary Medical History: Reports: Hx Asthma, Hx Bronchitis, Hx COPD, Hx Sleep Apnea - Bipap Endocrine Medical History: Reports: Hx Diabetes Mellitus Type 2, Hx Hypothyroidism GI Medical History: Reports: Hx Gastroesophageal Reflux Disease, Hx Ulcer Musculoskeletal Medical History: Reports Hx Arthritis - generalized Skin Medical History: Reports Hx Cellulitis Psychiatric Medical History: Reports: Hx Depression Past Surgical History: Reports: Hx Appendectomy, Hx Colostomy - then reversed, Hx Hysterectomy, Hx Neurologic Surgery - spinal fusion, Hx Orthopedic Surgery - carpal tunnel, polio surgery to left leg - Immunizations Immunizations up to date: Yes Hx Diphtheria, Pertussis, Tetanus Vaccination: Yes Hx Pneumococcal Vaccination: 08/18/14 Review of Systems - Review of Systems Constitutional: No symptoms reported EENT: No symptoms reported Cardiovascular: See HPI, Chest pain Respiratory: See HPI, Short of breath Gastrointestinal: See HPI, Diarrhea Genitourinary: No symptoms reported Female Genitourinary: No symptoms reported Musculoskeletal: No symptoms reported Skin: No symptoms reported Hematologic/Lymphatic: No symptoms reported Neurological/Psychological: No symptoms reported -: Yes All other systems reviewed and negative Physical Exam - Vital signs Vitals: Temp 97.7 F 10/17/18 04:40 - Notes Notes: PHYSICAL EXAM GENERAL: Alert, interacts well. No acute distress. Obese. Pulse oximeter at bedside shows saturation of 97% with good waveform on room air, good oxygenation per my interpretation. HEAD: Normocephalic, atraumatic. EYES: Pupils equal, round, and reactive to light. Extraocular movements intact. ENT: Oral mucosa moist, tongue midline. NECK: Full range of motion. Supple. Trachea midline. LUNGS: Left lower lobe crackles, no wheezes or rhonchi. HEART: Regular rate and rhythm. 3/6 systolic murmur, no gallops or rubs. BACK: Scoliosis with concavity to the left with scars consistent with history over the spine. ABDOMEN: Easily reducible abdominal hernia. Soft, non-tender. Non-distended. Bowel sounds present in all 4 quadrants. No guarding, rigidity, or rebound. EXTREMITIES: Moves all 4 extremities spontaneously. Trace LLE edema. NEUROLOGICAL: Alert and oriented x3. Normal speech. PSYCH: Normal affect, normal mood. SKIN: Warm and dry. Left lower extremity erythema that extends midway up the left calf, circumferential with trace edema intact blisters less than 3 mm. Course - Re-evaluation Re-evalutation: 10/17/18 06:01 CBC shows anemia with hemoglobin 9.3, only slight lower than on 09/30/2018 and it was 10.6. CMP shows slight low potassium at 3.4, this was repleted by mouth, CO2 elevated at 41, this is baseline for her, glucose elevated at 366 which is somewhat higher than usual, troponin indeterminate 0.032 which is indeterminate, proBNP elevated at 3520. Chest x-ray shows no cardiopulmonary abnormality. EKG is concerning for ischemia but not infarction. Patient is currently chest pain-free. 10/17/18 06:[address] Adame who agrees to admit the patient to his service in observation status on telemetry care unit. - Vital Signs Vital signs: Temp Pulse Resp BP Pulse Ox 97.7 F 26 H 122/96 H 95 10/17/18 04:40 10/17/18 05:01 10/17/18 05:01 10/17/18 05:01 - Laboratory Result Diagrams: 10/17/18 05:05 10/17/18 05:05 Laboratory results interpreted by me: 10/17/18 10/17/18 10/17/18 05:05 05:05 05:05 RBC 3.37 L Hgb 9.3 L Hct 28.1 L RDW 16.9 H Lymphocytes % 12.0 L Potassium 3.4 L Chloride 90 L Carbon Dioxide 41 H* Glucose 366 H NT-Pro-B Natriuret Pep 3520 H Total Protein 5.6 L Albumin 3.3 L - EKG Interpretation by Me Additional EKG results interpreted by me: 10/17/18 06:02 EKG shows sinus rhythm at a rate of 68, biphasic T waves in lead I, slight ST segment depression in lead II, T wave inversions in aVF, right bundle branch block, only mildly worsened since prior EKG on 09/25/2018 per my interpretation. Discharge - Discharge Clinical Impression: Hypokalemia, Acute on chronic diastolic (congestive) heart failure, Chest pain, rule out acute myocardial infarction, History of poliomyelitis Condition: Fair Disposition: ADMITTED OBSERVATION Admitting Provider: Luisist Aura Adame Unit Admitted: Telemetry Referrals: JEEVAN EARLY MD [Primary Care Provider] - Follow up as needed Scribe Attestation: 10/17/18 06:21 I personally performed the services described in the documentation, reviewed and edited the documentation which was dictated to the scribe in my presence, and it accurately records my words and actions. I personally performed the services described in the documentation, reviewed and edited the documentation which was dictated to the scribe in my presence, and it accurately records my words and actions.
--- NOTE | 2018-10-17 07:28 | PDOC H&P ---
History of Present Illness Admission Date/PCP: 10/17/18 06:29 JEEVAN EARLY MD Patient complains of: Shortness of breath History of Present Illness: ALBERTO DIAL is a 73 year old female with a past medical history of post polio syndrome, super morbid obesity, hypoventilation syndrome, opiate dependent chronic pain, diabetes, hypothyroidism, coronary artery disease with stents and bedbound state with chronic left leg cellulitis. Patient presents with 12 hours of rhinorrhea, sinus congestion, shortness of breath prompting her to evaluate oxygen with pulse oximetry finding it to be in the 80s she increased her oxygen levels and called EMS. In the emergency room she is found to have uncontrolled hypertension, tachypnea, anemia, hypercapnia and congestive heart failure exacerbation. She started on IV Lasix, BiPAP and referred to the hospitalist for admission. Patient denies chest pain palpitations nausea vomiting or back pain. She does complain of constipation and intermittent diarrhea. She otherwise admits to medication and lifestyle compliance. Past Medical History Cardiac Medical History: Reports: Congestive Heart Failure - Diastolic, Coronary Artery Disease, Myocardial Infarction - cardiac stents x 2, Hyperlipidema, Hypertension, Heart Murmur - aortic stenosis Denies: DVT, Pulmonary Embolism Pulmonary Medical History: Reports: Asthma, Bronchitis, Chronic Obstructive Pulmonary Disease (COPD), Sleep Apnea - Bipap Denies: Pneumonia, Tuberculosis Neurological Medical History: Denies: Seizures Endocrine Medical History: Reports: Diabetes Mellitus Type 2, Hypothyroidism, Obesity Denies: Diabetes Mellitus Type 1, Hyperthyroidism GI Medical History: Reports: Gastroesophageal Reflux Disease Denies: Cirrhosis, Hepatitis, Ulcerative Colitis Musculoskeltal Medical History: Reports: Arthritis - generalized Psychiatric Medical History: Reports: Depression Traumatic Medical History: Denies: Traumatic Brain Injury Hematology: Reports: Anemia Infectious Medical History: Denies: HIV Past Surgical History Past Surgical History: Reports: Appendectomy, Colostomy - then reversed, Hysterectomy, Orthopedic Surgery - carpal tunnel, polio surgery to left leg Denies: Pacemaker Social History Information Source: Patient Lives with: Family Smoking Status: Former Smoker Frequency of Alcohol Use: None Hx Recreational Drug Use: No Drugs: None Hx Prescription Drug Abuse: No - Advance Directive Resuscitation Status: Full Code Family History Family History: DM, Hyperlipidemia, Hypertension Parental Family History Reviewed: Yes Children Family History Reviewed: Yes Sibling(s) Family History Reviewed.: Yes Medication/Allergy Home Medications: Albuterol Sulfate [Ventolin 0.083% Neb 2.5 mg/3 mL Ampul] 1 vial NEB RTTIDP PRN 09/24/18 Aspirin [Ecotrin 81 mg EC Tablet] 81 mg PO DAILY 09/24/18 Atorvastatin Calcium [Lipitor 40 mg Tablet] 40 mg PO QHS 09/24/18 Budesonide/Formoterol Fumarate [Symbicort HFA 160-4.5 mcg Inhaler 6 gm] 2 puff IH Q12 09/24/18 Calcium Carbonate/Vitamin D3 [Calcium 500-Vit D3 200 Tablet] 1 each PO DAILY 03/05 Clopidogrel Bisulfate [Plavix 75 mg Tablet] 75 mg PO DAILY 09/24/18 Diclofenac Sodium [Voltaren] 1 gm TP TIDP PRN 09/24/18 Fexofenadine HCl [Rin Allergy] 180 mg PO DAILY 09/24/18 Furosemide [Lasix 40 mg Tablet] 40 mg PO BID 09/24/18 Glipizide [Glucotrol 10 mg Tablet] 10 mg PO QAM 09/24/18 Liothyronine Sodium [Cytomel] 10 mcg PO DAILY 09/24/18 Metformin HCl [Glucophage 500 mg Tablet] 500 mg PO BIDACBS 09/24/18 Metoprolol Succinate [Toprol Xl] 25 mg PO DAILY 09/24/18 Nitroglycerin [Nitrostat 0.4 mg (1/150 Gr) Tabs 25/Bottle] 1 tab SL Q5MP PRN 09/24/18 Polyethylene Glycol 3350 [Miralax Powder 17 gm/Packet] 1 packet PO DAILY 09/24/18 Potassium Chloride 30 meq PO DAILY 09/24/18 Rabeprazole Sodium [Aciphex] 20 mg PO DAILY 09/24/18 Terbinafine HCl [Lamisil 250 mg Tablet] 250 mg PO DAILY 09/24/18 Acetaminophen [Tylenol 325 mg Tablet] 650 mg PO Q4HP PRN tablet 09/30/18 Guaifenesin [Mucinex Sr 600 mg Tablet.sa] 600 mg PO Q12 #28 tablet.sa 09/30/18 Ipratropium/Albuterol Sulfate [Duoneb 3 ml Ampul] 3 ml NEB Q8HP PRN #90 vial.neb 09/30/18 Penicillin V Potassium [Penicillin Vk 250 mg Tablet] 250 mg PO Q8 #30 tablet 09/30/18 Prednisone [Deltasone] 20 mg PO DAILY #15 tablet 09/30/18 Allergies/Adverse Reactions: hydromorphone HCl [From Dilaudid] Allergy (Severe, Verified 09/24/18 17:12) Respiratory arrest codeine [Codeine] Allergy (Intermediate, Verified 09/24/18 17:12) Hallucinations Review of Systems Constitutional: PRESENT: as per HPI, fatigue, weakness, weight gain. ABSENT: fever(s), headache(s), night sweats Eyes: ABSENT: visual disturbances Ears: ABSENT: hearing changes Nose, Mouth, and Throat: PRESENT: as per HPI - Rhinorrhea. ABSENT: headache(s), mouth pain, sore throat Cardiovascular: PRESENT: as per HPI, dyspnea on exertion, edema, orthropnea. ABSENT: chest pain, palpitations Respiratory: PRESENT: as per HPI, cough, dyspnea. ABSENT: hemoptysis, sputum Gastrointestinal: PRESENT: as per HPI, constipation, diarrhea, heartburn. ABSENT: hematemesis, hematochezia Genitourinary: ABSENT: dysuria, hematuria Musculoskeletal: ABSENT: joint swelling Integumentary: PRESENT: other - Left leg contracture with chronic venous stasis changes. ABSENT: rash, wounds Neurological: ABSENT: abnormal gait, abnormal speech, confusion, dizziness, focal weakness, syncope Psychiatric: ABSENT: anxiety, depression, homidical ideation, suicidal ideation Endocrine: ABSENT: cold intolerance, heat intolerance, polydipsia, polyuria Hematologic/Lymphatic: ABSENT: easy bleeding, easy bruising Physical Exam Vital Signs: Temp Pulse Resp BP Pulse Ox 97.7 F 12 153/42 H 94 10/17/18 04:40 10/17/18 07:06 10/17/18 07:06 10/17/18 07:06 Intake & Output 10/15/18 10/16/18 10/17/18 11:59 11:59 11:59 Weight 124.738 kg General appearance: PRESENT: cooperative, mild distress, morbidly obese. ABSENT: disheveled Head exam: PRESENT: atraumatic, normocephalic Eye exam: PRESENT: conjunctiva pink, EOMI, PERRLA. ABSENT: scleral icterus Ear exam: PRESENT: normal external ear exam Mouth exam: PRESENT: moist, tongue midline Neck exam: PRESENT: JVD. ABSENT: carotid bruit, lymphadenopathy, thyromegaly, tracheostomy Respiratory exam: PRESENT: accessory muscle use, crackles, decreased breath so unds, tachypnea. ABSENT: rhonchi, stridor Cardiovascular exam: PRESENT: RRR, other - 3 out of 6 systolic murmur. ABSENT: diastolic murmur, rubs, systolic murmur Pulses: PRESENT: normal dorsalis pedis pul Vascular exam: PRESENT: normal capillary refill GI/Abdominal exam: PRESENT: diminished bowel sounds, distended, hypoactive bowel sounds, soft. ABSENT: tenderness Rectal exam: PRESENT: deferred Extremities exam: PRESENT: full ROM, tenderness - Left leg and contracture with chronic venous stasis, no open ulcer, +1 edema. ABSENT: calf tenderness, clubbing, pedal edema Neurological exam: PRESENT: alert, awake, oriented to person, oriented to place, oriented to time, oriented to situation, CN II-XII grossly intact. ABSENT: motor sensory deficit Psychiatric exam: PRESENT: appropriate affect, normal mood. ABSENT: homicidal ideation, suicidal ideation Skin exam: PRESENT: dry, intact, warm. ABSENT: cyanosis, rash Results Laboratory Results: 10/17/18 05:05 10/17/18 05:05 10/17/18 10/17/18 05:05 05:05 WBC 7.7 RBC 3.37 L Hgb 9.3 L Hct 28.1 L MCV 84 MCH 27.6 MCHC 33.0 RDW 16.9 H Plt Count 203 Seg Neutrophils % 77.5 Lymphocytes % 12.0 L Monocytes % 5.8 Eosinophils % 3.3 Basophils % 1.4 Absolute Neutrophils 6.0 Absolute Lymphocytes 0.9 Absolute Monocytes 0.4 Absolute Eosinophils 0.3 Absolute Basophils 0.1 Sodium 139.2 Potassium 3.4 L Chloride 90 L Carbon Dioxide 41 H* Anion Gap 8 BUN 16 Creatinine 0.58 Est GFR ( Amer) > 60 Est GFR (Non-Af Amer) > 60 Glucose 366 H Calcium 8.6 Total Bilirubin 0.5 AST 14 ALT 19 Alkaline Phosphatase 64 Total Protein 5.6 L Albumin 3.3 L 10/17/18 10/17/18 05:05 05:05 Creatine Kinase 63 CK-MB (CK-2) 1.65 Troponin I 0.032 NT-Pro-B Natriuret Pep 3520 H Impressions: Chest X-Ray 03/02/19 04:47 IMPRESSION: No acute cardiopulmonary abnormality copyright 2011 [id number]- All Rights Reserved Assessment & Plan - Diagnosis (1) Acute on chronic diastolic (congestive) heart failure Is this a current diagnosis for this admission?: Yes Plan: CHF care set, fluid restriction, IV Lasix, BiPAP (2) Acute and chronic respiratory failure with hypercapnia Is this a current diagnosis for this admission?: Yes Plan: Multifactorial secondary to anemia, diastolic heart failure and obstructive sleep apnea with morbid obesity hypoventilation syndrome. Education, BiPAP support, follow-up chemistry and anemia labs. (3) Anemia Qualifiers: Anemia type: unspecified type Qualified Code(s): D64.9 - Anemia, unspecified Is this a current diagnosis for this admission?: Yes Plan: Appears chronic likely microcytic iron deficiency follow-up anemia labs and CBC, (4) Diastolic CHF Qualifiers: Qualified Code(s): I50.33 - Acute on chronic diastolic (congestive) heart failure Is this a current diagnosis for this admission?: Yes Plan: Aggressive blood pressure and volume control (5) Morbid obesity with BMI of 45.0-49.9, adult Is this a current diagnosis for this admission?: Yes Plan: Morbid obesity will evaluate for metabolic cause with evaluation of thyroid function and dietitian consultation (6) Diabetes mellitus type 2 in obese Is this a current diagnosis for this admission?: Yes Plan: Outpatient regiment with sliding scale insulin coverage - Time Time Spent: 50 to 70 Minutes - Inpatient Certification Medical Necessity: Need Close Monitoring Due to Risk of Patient Decompensation
[2018-10-17 07:31] LABS: ABSOLUTE RETICS # 0.082 10^6/uL (0.028-0.122); RETICULOCYTE COUNT (AUTO) 2.48 % (0.66-2.85)
[2018-10-17 07:44] LABS: IRON(TIBC) 38.5 ug/dL (37-170)
[2018-10-17] MEDS ORDERED: LACTULOSE SYRUP 20 GM/30 ML UDCUP PO ONE (08:30)
[2018-10-17] MEDS: IPRATROPIUM/ALBUTEROL 0.5-2.5 MG/3 ML AMPUL NEB SCH ×2 (08:34→19:39)
[2018-10-17] MEDS: ACETAMINOPHEN 325 MG TABLET PO PRN ×2 (08:57→20:31)
[2018-10-17] MEDS: MAGNESIUM SULFATE/D5W 1 GM/100 ML RTUPB IV SCH ×2 (08:57→10:39)
[2018-10-17] MEDS: GLIPIZIDE 10 MG TABLET PO SCH (08:59)
[2018-10-17] MEDS: INSULIN LISPRO 100 UNIT/ML 3 ML VIAL SUBCUT SCH ×3 (09:07→17:52)
[2018-10-17] MEDS: DOCUSATE SODIUM 100 MG CAPSULE PO SCH ×2 (09:24→17:52)
[2018-10-17] MEDS: CLOPIDOGREL BISULFATE 75 MG TABLET PO SCH (09:24)
[2018-10-17] MEDS: LORATADINE 10 MG TABLET PO SCH (09:24)
[2018-10-17] MEDS: METOPROLOL SUCCINATE 25 MG TAB.SR.24H PO SCH (09:24)
[2018-10-17] MEDS: ASPIRIN 81 MG TABLET, ENT COATED PO SCH (09:25)
[2018-10-17] MEDS: CALCIUM CARBONATE 250 MG/VITAMIN D3 125 UNIT TABLET PO SCH (09:27)
[2018-10-17] MEDS: FLUTICASONE NASAL SPRAY 50 MCG/SPRY 120 SPRAY/16 GM NASL SCH ×2 (09:40→22:14)
[2018-10-17] MEDS: LIOTHYRONINE SODIUM 5 MCG TABLET PO SCH (09:40)
[2018-10-17] MEDS: BUDESONIDE/FORMOTEROL 160-4.5 MCG 60 PUFF/6 GM MDI IH SCH ×2 (09:41→22:13)
[2018-10-17] MEDS ORDERED: FUROSEMIDE INJ/PF 40 MG/4 ML SDV IV SCH (10:00)
[2018-10-17] MEDS: HEPARIN SOD (PORCINE) 5,000 UNIT/ML 1 ML SYRINGE SUBCUT SCH ×2 (14:12→22:13)
[2018-10-17] MEDS: POTASSIUM CHLORIDE 10 MEQ CAPSULE.ER PO SCH ×2 (14:12→22:12)
[2018-10-17] MEDS ORDERED: ROPINIROLE HCL 0.25 MG TABLET PO ONE (16:15)
[2018-10-17 17:33] LABS: BLOOD UREA NITROGEN 15 mg/dL (7-20); CALCIUM 8.7 mg/dL (8.4-10.2); CHLORIDE 92 mmol/L (98-107); GLUCOSE 218 mg/dL (75-110); POTASSIUM 3.7 mmol/L (3.6-5.0)
[2018-10-17 17:41] LABS: ANION GAP 1 (5-19)
[2018-10-17 17:43] LABS: CARBON DIOXIDE 46 mmol/L (22-30)
[2018-10-17] MEDS: FUROSEMIDE 40 MG TABLET PO SCH (17:52)
[2018-10-17 18:47] LABS: ARTERIAL BLOOD BASE EXCESS 12.5 mmol/L; ARTERIAL BLOOD H2CO3 2.03 mmol/L (1.05-1.35); ARTERIAL BLOOD HCO3 39.5 mmol/L (20-24); ARTERIAL BLOOD O2 SATURATION 88.7 % (94-98); ARTERIAL BLOOD PCO2 67.4 mmHg (35-45); ARTERIAL BLOOD PH 7.39 (7.35-7.45); ARTERIAL BLOOD PO2 58.1 mmHg (80-100); ARTERIAL BLOOD TOTAL CO2 41.6 mmol/L (21-25)
[2018-10-17 18:48] LABS: ARTERIAL BLOOD FIO2 2L
--- NOTE | 2018-10-17 19:20 | EKG REPORT ---
SEVERITY:- ABNORMAL ECG - SINUS RHYTHM RIGHT BUNDLE BRANCH BLOCK LVH WITH IVCD AND SECONDARY REPOL ABNRM : Confirmed by: Odilon Beckwith 17-Oct-2018 19:19:50
[2018-10-17 19:41] LABS: A TYPE INFLUENZA AG NEGATIVE (NEGATIVE); B INFLUENZA AG NEGATIVE (NEGATIVE)
[2018-10-17 21:15] LABS: ARTERIAL BLOOD BASE EXCESS 12.5 mmol/L; ARTERIAL BLOOD H2CO3 2.01 mmol/L (1.05-1.35); ARTERIAL BLOOD HCO3 39.3 mmol/L (20-24); ARTERIAL BLOOD O2 SATURATION 95.5 % (94-98); ARTERIAL BLOOD PCO2 66.8 mmHg (35-45); ARTERIAL BLOOD PH 7.39 (7.35-7.45); ARTERIAL BLOOD PO2 82.1 mmHg (80-100); ARTERIAL BLOOD TOTAL CO2 41.3 mmol/L (21-25)
[2018-10-17 21:20] LABS: ARTERIAL BLOOD FIO2 30%
[2018-10-17] MEDS ORDERED: ATORVASTATIN CALCIUM 40 MG TABLET PO SCH (22:00)
[2018-10-18] MEDS: POTASSIUM CHLORIDE 10 MEQ CAPSULE.ER PO SCH (05:59)
[2018-10-18] MEDS: HEPARIN SOD (PORCINE) 5,000 UNIT/ML 1 ML SYRINGE SUBCUT SCH ×2 (06:00→13:29)
[2018-10-18 07:35] LABS: ANION GAP 10 (5-19); BLOOD UREA NITROGEN 16 mg/dL (7-20); CALCIUM 8.2 mg/dL (8.4-10.2); CHLORIDE 94 mmol/L (98-107); GLUCOSE 199 mg/dL (75-110); POTASSIUM 4.5 mmol/L (3.6-5.0); SODIUM 139.3 mmol/L (137-145)
[2018-10-18 08:03] LABS: CARBON DIOXIDE 35 mmol/L (22-30)
[2018-10-18 08:39] LABS: ABSOLUTE EOSINOPHILS # (AUTO) 0.4 10^3/uL (0.0-0.6); ABSOLUTE LYMPHOCYTES (AUTO) 1.3 10^3/uL (0.5-4.7); ABSOLUTE MONOCYTES (AUTO) 0.4 10^3/uL (0.1-1.4); ABSOLUTE NEUT (AUTO) 3.6 10^3/uL (1.7-8.2); BASOPHILS % (AUTO) 0.8 % (0-2); EOSINOPHILS % (AUTO) 6.5 % (0-6); HEMATOCRIT 27.5 % (36.0-47.0); HEMOGLOBIN 9.1 g/dL (12.0-15.5); LYMPHOCYTES % (AUTO) 22.6 % (13-45); MEAN CORPUSCULAR HEMOGLOBIN 27.7 pg (27.0-33.4); MEAN CORPUSCULAR HGB CONC 33.1 g/dL (32.0-36.0); MEAN CORPUSCULAR VOLUME 84 fl (80-97); MONOCYTES % (AUTO) 6.4 % (3-13); PLATELET COUNT 221 10^3/uL (150-450); RED BLOOD COUNT 3.28 10^6/uL (3.72-5.28); RED CELL DISTRIBUTION WIDTH 17.2 % (11.5-14.0); SEGMENTED NEUTROPHILS % (AUTO) 63.7 % (42-78); TOTAL CELLS COUNTED % (AUTO) 100 %; WHITE BLOOD COUNT 5.6 10^3/uL (4.0-10.5)
[2018-10-18] MEDS: GLIPIZIDE 10 MG TABLET PO SCH (08:43)
[2018-10-18] MEDS: IPRATROPIUM/ALBUTEROL 0.5-2.5 MG/3 ML AMPUL NEB SCH (08:43)
[2018-10-18] MEDS: INSULIN LISPRO 100 UNIT/ML 3 ML VIAL SUBCUT SCH ×2 (08:44→12:08)
--- NOTE | 2018-10-18 09:11 | PDOC PROGRESS REPORT ---
Subjective Progress Note for:: 10/17/18 Subjective:: This is a 73 yr old femlae with a PMH of post polio syndrome, super morbid obesity, aortic stenosis, hypoventilation syndrome on Trilogy at home, opiate dependent chronic pain, diabetes, hypothyroidism, coronary artery disease with stents and bedbound state with chronic left leg cellulitis who presented with rhinorrhea, sinus congestion, shortness of breath prompting her to evaluate oxygen with pulse oximetry finding it to be in the 80s at home. In the ER, she is found to have uncontrolled hypertension, tachypnea, anemia, hypercapnia and congestive heart failure exacerbation. She was started on IV Lasix and placed on BIPAP. This morning, she says her breathing has improved. She denies chest pain. Currently saturating well on 4 lpm via NC. Reason For Visit: OBESITY HYPOVENTILATION,DM,HTN CHF EXACERBATION Physical Exam Vital Signs: Temp Pulse Resp BP Pulse Ox 97.8 F 55 L 18 154/51 H 88 L 10/17/18 12:15 10/17/18 14:00 10/17/18 12:15 10/17/18 12:15 10/17/18 12:15 Intake & Output 10/16/18 10/17/18 10/18/18 06:59 06:59 06:59 Intake Total 1139 Balance 1139 Weight 275 lb General appearance: PRESENT: no acute distress, morbidly obese Head exam: PRESENT: atraumatic, normocephalic Eye exam: PRESENT: conjunctiva pink, EOMI, PERRLA. ABSENT: scleral icterus Ear exam: PRESENT: normal external ear exam Mouth exam: PRESENT: moist, tongue midline Neck exam: ABSENT: carotid bruit, JVD, lymphadenopathy, thyromegaly Respiratory exam: PRESENT: rhonchi. ABSENT: rales Cardiovascular exam: PRESENT: RRR, systolic murmur. ABSENT: rubs Pulses: PRESENT: normal dorsalis pedis pul GI/Abdominal exam: PRESENT: normal bowel sounds, soft. ABSENT: distended, guarding, mass, organolmegaly, rebound, tenderness Rectal exam: PRESENT: deferred Extremities exam: PRESENT: +2 edema, other - chronic erythema on the left LE Neurological exam: PRESENT: alert, awake, oriented to person, oriented to place, oriented to time, oriented to situation, CN II-XII grossly intact. ABSENT: motor sensory deficit Results Laboratory Results: 10/17/18 05:05 10/17/18 05:05 10/17/18 10/17/18 10/17/18 05:05 05:05 05:05 WBC 7.7 RBC 3.37 L Hgb 9.3 L Hct 28.1 L MCV 84 MCH 27.6 MCHC 33.0 RDW 16.9 H Plt Count 203 Seg Neutrophils % 77.5 Lymphocytes % 12.0 L Monocytes % 5.8 Eosinophils % 3.3 Basophils % 1.4 Absolute Neutrophils 6.0 Absolute Lymphocytes 0.9 Absolute Monocytes 0.4 Absolute Eosinophils 0.3 Absolute Basophils 0.1 Retic Count (auto) Absolute Retic Sodium 139.2 Potassium 3.4 L Chloride 90 L Carbon Dioxide 41 H* Anion Gap 8 BUN 16 Creatinine 0.58 Est GFR ( Amer) > 60 Est GFR (Non-Af Amer) > 60 Glucose 366 H Calcium 8.6 Magnesium 1.2 L* Iron TIBC % Saturation Ferritin Total Bilirubin 0.5 AST 14 ALT 19 Alkaline Phosphatase 64 Total Protein 5.6 L Albumin 3.3 L Vitamin B12 Folate 10/17/18 10/17/18 05:05 05:05 WBC RBC Hgb Hct MCV MCH MCHC RDW Plt Count Seg Neutrophils % Lymphocytes % Monocytes % Eosinophils % Basophils % Absolute Neutrophils Absolute Lymphocytes Absolute Monocytes Absolute Eosinophils Absolute Basophils Retic Count (auto) 2.48 Absolute Retic 0.082 Sodium Potassium Chloride Carbon Dioxide Anion Gap BUN Creatinine Est GFR ( Amer) Est GFR (Non-Af Amer) Glucose Calcium Magnesium Iron 38.5 TIBC 263 % Saturation 15 Ferritin 286.00 H Total Bilirubin AST ALT Alkaline Phosphatase Total Protein Albumin Vitamin B12 664.0 Folate 10.40 10/17/18 10/17/18 10/17/18 05:05 05:05 14:32 Creatine Kinase 63 CK-MB (CK-2) 1.65 Troponin I 0.032 0.029 NT-Pro-B Natriuret Pep 3520 H Impressions: Chest X-Ray 10/17/18 04:47 IMPRESSION: No acute cardiopulmonary abnormality copyright 2010 [employer]- All Rights Reserved Assessment & Plan - Diagnosis (1) Acute on chronic diastolic (congestive) heart failure Is this a current diagnosis for this admission?: Yes Plan: On Lasix 40 mg bid PO (home dose). (2) Acute and chronic respiratory failure with hypercapnia Is this a current diagnosis for this admission?: Yes Plan: On Trilogy at home. Keep patient on BIPAP here at night and during sleep. (3) Hypokalemia Is this a current diagnosis for this admission?: Yes Plan: Repeat serum K after replacement this afternoon. (4) Hypomagnesemia Is this a current diagnosis for this admission?: Yes Plan: Replacing with IV Mg. Repeat serum Mg today.
[2018-10-18] MEDS: DOCUSATE SODIUM 100 MG CAPSULE PO SCH (11:02)
[2018-10-18] MEDS: LORATADINE 10 MG TABLET PO SCH (11:02)
[2018-10-18] MEDS: FUROSEMIDE 40 MG TABLET PO SCH (11:02)
[2018-10-18] MEDS: LIOTHYRONINE SODIUM 5 MCG TABLET PO SCH (11:06)
[2018-10-18] MEDS: BUDESONIDE/FORMOTEROL 160-4.5 MCG 60 PUFF/6 GM MDI IH SCH (11:07)
[2018-10-18] MEDS: CALCIUM CARBONATE 250 MG/VITAMIN D3 125 UNIT TABLET PO SCH (11:07)
[2018-10-18] MEDS: FLUTICASONE NASAL SPRAY 50 MCG/SPRY 120 SPRAY/16 GM NASL SCH (11:07)
[2018-10-18] MEDS: METOPROLOL SUCCINATE 25 MG TAB.SR.24H PO SCH (11:07)
[2018-10-18] MEDS: ASPIRIN 81 MG TABLET, ENT COATED PO SCH (11:07)
[2018-10-18] MEDS: CLOPIDOGREL BISULFATE 75 MG TABLET PO SCH (11:07)
[2018-10-18 11:55] VITALS: BP 142/39
--- NOTE | 2018-10-18 14:44 | PDOC DISCHARGE SUMMARY ---
General - Admit/Disc Date/PCP Admission Date/Primary Care Provider: 10/17/18 06:29 JEEVAN EARLY MD Discharge Date: 10/18/18 - Discharge Diagnosis (1) Acute on chronic diastolic (congestive) heart failure Is this a current diagnosis for this admission?: Yes (2) Acute and chronic respiratory failure with hypercapnia Is this a current diagnosis for this admission?: Yes (3) Hypokalemia Is this a current diagnosis for this admission?: Yes (4) Hypomagnesemia Is this a current diagnosis for this admission?: Yes - Additional Information Resuscitation Status: Full Code Discharge Diet: Cardiac, Diabetic Discharge Activity: Activity As Tolerated Home Medications: Aspirin [Ecotrin 81 mg EC Tablet] 81 mg PO DAILY 09/24/18 Atorvastatin Calcium [Lipitor 40 mg Tablet] 40 mg PO QHS 09/24/18 Budesonide/Formoterol Fumarate [Symbicort HFA 160-4.5 mcg Inhaler 6 gm] 2 puff IH Q12 09/24/18 Calcium Carbonate/Vitamin D3 [Calcium 500-Vit D3 200 Tablet] 1 each PO DAILY 09/24/18 Clopidogrel Bisulfate [Plavix 75 mg Tablet] 75 mg PO DAILY 09/24/18 Furosemide [Lasix 40 mg Tablet] 40 mg PO BID 09/24/18 Glipizide [Glucotrol 10 mg Tablet] 10 mg PO QAM 09/24/18 Liothyronine Sodium [Cytomel] 10 mcg PO DAILY 09/24/18 Metformin HCl [Glucophage 500 mg Tablet] 500 mg PO BIDACBS 09/24/18 Metoprolol Succinate [Toprol Xl] 12.5 mg PO DAILY 09/24/18 Nitroglycerin [Nitrostat 0.4 mg (1/150 Gr) Tabs 25/Bottle] 1 tab SL Q5MP PRN 09/24/18 Potassium Chloride 30 meq PO DAILY 09/24/18 Rabeprazole Sodium [Aciphex] 20 mg PO DAILY 09/24/18 Terbinafine HCl [Lamisil 250 mg Tablet] 250 mg PO DAILY 09/24/18 Cetirizine HCl [Zyrtec 10 mg Tablet] 1 tab PO DAILY 10/17/18 Ipratropium/Albuterol Sulfate [Duoneb 3 ml Ampul] 3 ml NEB Q6HP PRN 10/17/18 Montelukast Sodium [Singulair 10 mg Tablet] 10 mg PO QHS 10/17/18 History of Present Illness History of Present Illness: Admitting hospitalist's H&P: ALBERTO DIAL is a 73 year old female with a past medical history of post polio syndrome, super morbid obesity, hypoventilation syndrome, opiate dependent chronic pain, diabetes, hypothyroidism, coronary artery disease with stents and bedbound state with chronic left leg cellulitis. Patient presents with 12 hours of rhinorrhea, sinus congestion, shortness of breath prompting her to evaluate oxygen with pulse oximetry finding it to be in the 80s she increased her oxygen levels and called EMS. In the emergency room she is found to have uncontrolled hypertension, tachypnea, anemia, hypercapnia and congestive heart failure exa cerbation. She started on IV Lasix, BiPAP and referred to the hospitalist for admission. Patient denies chest pain palpitations nausea vomiting or back pain. She does complain of constipation and intermittent diarrhea. She otherwise admits to medication and lifestyle compliance. Hospital Course Hospital Course: This is a 73 yr old femlae with a PMH of chronic respiratroy failure, post polio syndrome, super morbid obesity, hypoventilation syndrome on Trilogy at home, aortic stenosis, opiate dependent chronic pain, diabetes, hypothyroidism, coronary artery disease with stents and bedbound state with chronic left leg cellulitis who presented with rhinorrhea, sinus congestion, shortness of breath prompting her to evaluate oxygen with pulse oximetry finding it to be in the 80s at home. In the ER, she is found to have uncontrolled hypertension, tachypnea, anemia, hypercapnia and congestive heart failure exacerbation. She did complain of associated nausea, a few loose stools along with the rhinorrhea and noproductive cough. She was started on IV Lasix and placed on BIPAP. She significantly improved over the next 24 hrs. She was placed on BIPAP at night and during sleep during the day as her PCO2 easily goes up off positive pressure ventilation. She returned to her baseline. She is compliant with her Trilogy at home. Her hypokalemia and hypomagnesemia likely related to GI losses were repleted. C diff testing was negative. She did not have recurrence of diarrhea since admission. She likely had a viral acute gastroenteritis. She will follow up with Dr. Tellez in 1-2 weeks regarding her moderate aortic stenosis. Physical Exam Vital Signs: Temp Pulse Resp BP Pulse Ox 98.4 F 61 19 142/39 H 97 10/18/18 12:31 10/18/18 12:31 10/18/18 12:31 10/18/18 12:31 10/18/18 12:31 Intake & Output 10/17/18 10/18/18 10/19/18 06:59 06:59 06:59 Intake Total 1139 Output Total 1300 600 Balance -161 -600 Weight 275 lb 256 lb 2.834 oz General appearance: PRESENT: no acute distress, morbidly obese Head exam: PRESENT: atraumatic, normocephalic Eye exam: PRESENT: conjunctiva pink, EOMI, PERRLA. ABSENT: scleral icterus Ear exam: PRESENT: normal external ear exam Mouth exam: PRESENT: moist, tongue midline Neck exam: ABSENT: carotid bruit, JVD, lymphadenopathy, thyromegaly Respiratory exam: PRESENT: clear to auscultation joel. ABSENT: rales, rhonchi, wheezes Cardiovascular exam: PRESENT: RRR. ABSENT: diastolic murmur, rubs, systolic m urmur Pulses: PRESENT: normal dorsalis pedis pul GI/Abdominal exam: PRESENT: normal bowel sounds, soft. ABSENT: distended, guarding, mass, organolmegaly, rebound, tenderness Rectal exam: PRESENT: deferred Extremities exam: PRESENT: +2 edema - chronic pedal edema Neurological exam: PRESENT: alert, awake, oriented to person, oriented to place, oriented to time, oriented to situation, CN II-XII grossly intact. ABSENT: motor sensory deficit Results Laboratory Results: 10/18/18 08:13 10/18/18 06:19 10/17/18 10/17/18 10/17/18 16:44 18:35 21:00 WBC RBC Hgb Hct MCV MCH MCHC RDW Plt Count Seg Neutrophils % Lymphocytes % Monocytes % Eosinophils % Basophils % Absolute Neutrophils Absolute Lymphocytes Absolute Monocytes Absolute Eosinophils Absolute Basophils Carbonic Acid 2.03 H 2.01 H HCO3/H2CO3 Ratio 19:1 19:1 ABG pH 7.39 7.39 ABG pCO2 67.4 H 66.8 H ABG pO2 58.1 L 82.1 ABG HCO3 39.5 H 39.3 H ABG O2 Saturation 88.7 L 95.5 ABG Base Excess 12.5 12.5 FiO2 2L 30% Sodium 139.0 Potassium 3.7 Chloride 92 L Carbon Dioxide 46 H* Anion Gap 1 L BUN 15 Creatinine 0.63 Est GFR ( Amer) > 60 Est GFR (Non-Af Amer) > 60 Glucose 218 H Calcium 8.7 Magnesium 1.8 10/18/18 10/18/18 10/18/18 06:19 06:19 08:13 WBC Cancelled 5.6 RBC Cancelled 3.28 L Hgb Cancelled 9.1 L Hct Cancelled 27.5 L MCV Cancelled 84 MCH Cancelled 27.7 MCHC Cancelled 33.1 RDW Cancelled 17.2 H Plt Count Cancelled 221 Seg Neutrophils % Cancelled 63.7 Lymphocytes % Cancelled 22.6 Monocytes % Cancelled 6.4 Eosinophils % Cancelled 6.5 H Basophils % Cancelled 0.8 Absolute Neutrophils Cancelled 3.6 Absolute Lymphocytes Cancelled 1.3 Absolute Monocytes Cancelled 0.4 Absolute Eosinophils Cancelled 0.4 Absolute Basophils Cancelled 0.0 Carbonic Acid HCO3/H2CO3 Ratio ABG pH ABG pCO2 ABG pO2 ABG HCO3 ABG O2 Saturation ABG Base Excess FiO2 Sodium 139.3 Potassium 4.5 Chloride 94 L Carbon Dioxide 35 H D Anion Gap 10 BUN 16 Creatinine 0.55 Est GFR ( Amer) > 60 Est GFR (Non-Af Amer) > 60 Glucose 199 H Calcium 8.2 L Magnesium 10/17/18 10/17/18 10/17/18 05:05 05:05 14:32 Creatine Kinase 63 CK-MB (CK-2) 1.65 Troponin I 0.032 0.029 NT-Pro-B Natriuret Pep 3520 H Impressions: Chest X-Ray 10/17/18 04:47 IMPRESSION: No acute cardiopulmonary abnormality copyright 2011 [employer]- All Rights Reserved Qualifiers - * PATIENT BEING DISCHARGED WITH ANY OF THE FOLLOWING DIAGNOSIS: No
== END 2018-10-18 14:00 | disposition home health service (06) | DRG 291 ==
LOC: ER 04:33 → EH 06:29 → OBSVTOIN 06:29 → 4S 07:45
PROVIDERS: ADMIT Internal Medicine; ATTEND Internal Medicine
PROC: 5A09457 Assistance with Respiratory Ventilation, 24-96 Consecutive Hours, Continuous Positive Airway Pressure (ICD-10-PCS; principal; 2018-10-17)
PROC: 3E0F73Z Introduction of Anti-inflammatory into Respiratory Tract, Via Natural or Artificial Opening (ICD-10-PCS; 2018-10-17)
DX: I11.0 Hypertensive heart disease with heart failure (principal); J96.22 Acute and chronic respiratory failure with hypercapnia; E66.2 Morbid (severe) obesity with alveolar hypoventilation; Z68.42 Body mass index [BMI] 45.0-49.9, adult; I50.33 Acute on chronic diastolic (congestive) heart failure; E11.9 Type 2 diabetes mellitus without complications; E87.6 Hypokalemia; E83.42 Hypomagnesemia; G89.29 Other chronic pain; E03.9 Hypothyroidism, unspecified; I25.10 Atherosclerotic heart disease of native coronary artery without angina pectoris; K21.9 Gastro-esophageal reflux disease without esophagitis; M15.9 Polyosteoarthritis, unspecified; F32.9 Major depressive disorder, single episode, unspecified; G47.30 Sleep apnea, unspecified; D50.8 Other iron deficiency anemias; I45.10 Unspecified right bundle-branch block; I25.2 Old myocardial infarction; Z79.891 Long term (current) use of opiate analgesic; Z95.5 Presence of coronary angioplasty implant and graft; Z74.01 Bed confinement status; Z79.02 Long term (current) use of antithrombotics/antiplatelets; Z90.710 Acquired absence of both cervix and uterus; Z87.891 Personal history of nicotine dependence; Z79.84 Long term (current) use of oral hypoglycemic drugs; Z79.82 Long term (current) use of aspirin; Z79.52 Long term (current) use of systemic steroids; Z88.6 Allergy status to analgesic agent; Z99.81 Dependence on supplemental oxygen; Z86.12 Personal history of poliomyelitis; Z82.49 Family history of ischemic heart disease and other diseases of the circulatory system; Z83.3 Family history of diabetes mellitus
CPT/HCPCS: 36415; 36600; 51702; 71045; 80048; 80053; 82550; 82553; 82607; 82728; 82746; 82803; 82962; 83540; 83550; 83735; 83880; 84484; 85025; 85045; 87045; 87205; 87493; 87804; 93005; 93010; 94640; 94660; 96374; 99285; J1644; J1815; J1940; J3475; J3490; J7620

== ENCOUNTER 2018-11-10 04:53 | Inpatient (IN) | payer MEDICARE ==
[2018-11-10 05:36] LABS: ABSOLUTE BASOPHILS # (AUTO) 0.1 10^3/uL (0.0-0.2); ABSOLUTE EOSINOPHILS # (AUTO) 0.3 10^3/uL (0.0-0.6); ABSOLUTE NEUT (AUTO) 11.7 10^3/uL (1.7-8.2); BASOPHILS % (AUTO) 0.6 % (0-2); EOSINOPHILS % (AUTO) 1.9 % (0-6); HEMATOCRIT 25.7 % (36.0-47.0); HEMOGLOBIN 8.3 g/dL (12.0-15.5); LYMPHOCYTES % (AUTO) 7.4 % (13-45); MEAN CORPUSCULAR HEMOGLOBIN 27.8 pg (27.0-33.4); MEAN CORPUSCULAR HGB CONC 32.5 g/dL (32.0-36.0); MEAN CORPUSCULAR VOLUME 86 fl (80-97); MONOCYTES % (AUTO) 6.9 % (3-13); PLATELET COUNT 271 10^3/uL (150-450); RED CELL DISTRIBUTION WIDTH 18.4 % (11.5-14.0); SEGMENTED NEUTROPHILS % (AUTO) 83.2 % (42-78); TOTAL CELLS COUNTED % (AUTO) 100 %
[2018-11-10 06:13] LABS: ALANINE AMINOTRANSFERASE 26 U/L (9-52); ALBUMIN 3.2 g/dL (3.5-5.0); ALKALINE PHOSPHATASE 71 U/L (38-126); ASPARTATE AMINO TRANSFERASE 22 U/L (14-36); BILIRUBIN,DIRECT 0.4 mg/dL (0.0-0.4); BILIRUBIN,TOTAL 0.5 mg/dL (0.2-1.3); BLOOD UREA NITROGEN 29 mg/dL (7-20); CHLORIDE 93 mmol/L (98-107); GLUCOSE 211 mg/dL (75-110); POTASSIUM 4.6 mmol/L (3.6-5.0); TOTAL PROTEIN 6.4 g/dL (6.3-8.2)
[2018-11-10 06:20] LABS: ANION GAP 6 (5-19)
--- NOTE | 2018-11-10 06:26 | RADIOLOGY REPORT (SQ) ---
EXAM DESCRIPTION: XR CHEST 1 VIEW COMPLETED DATE/TME: 11/10/2018 05:12 CLINICAL HISTORY: 73 years Female, SOB COMPARISON: 10/17/18 NUMBER OF VIEWS/TECHNIQUE: 1/AP FINDINGS: Clear lungs of adequate volume, and normal cardiac silhouette. Prominent left cardiophrenic fat pad/obscuration.No pneumothorax. Moderate levo convexity. Stable bony thorax. IMPRESSION: No significant change.
[2018-11-10 06:27] LABS: VENOUS BLOOD BASE EXCESS 13.6 mmol/L; VENOUS BLOOD HCO3 44.1 mmol/L (20-32); VENOUS BLOOD PH 7.29 (7.30-7.42)
[2018-11-10 06:34] LABS: CARBON DIOXIDE 40 mmol/L (22-30)
[2018-11-10 06:34] LABS: VENOUS BLOOD PCO2 93.2 mmHg (35-63)
[2018-11-10 07:00] LABS: APPEARANCE,URINE SLIGHTLY-CLOUDY; BILIRUBIN,URINE NEGATIVE (NEGATIVE); COLOR,URINE STRAW; GLUCOSE, URINE NEGATIVE (NEGATIVE); KETONES,URINE NEGATIVE (NEGATIVE); LEUKOCYTE ESTERASE,URINE LARGE (NEGATIVE); NITRITE,URINE NEGATIVE (NEGATIVE); PROTEIN,URINE NEGATIVE (NEGATIVE); UROBILINOGEN,URINE NEGATIVE mg/dL (<2.0)
[2018-11-10] MEDS ORDERED: CEFTRIAXONE 1 GM/D5W RTU 1 GM/50 ML RTUPB IV ONE (07:11)
--- NOTE | 2018-11-10 07:50 | ER Document Report ---
ED General - General Chief Complaint: Shortness Of Breath Stated Complaint: SHORTNESS OF BREATH Time Seen by Provider: 11/10/18 05:11 Notes: Patient is a morbidly obese 73-year-old female presents to the emergency department via EMS for respiratory distress and dysuria. Patient states she has had a generalized cough and congestion for the last 48 hours. Patient is denying any fever. Patient states she does have an at-home BiPAP and she has been using it as she is supposed to. According to EMS report patient's initial oxygen saturation was 83% they placed her on 2 L of oxygen and her oxygen saturation came up to 96%. Upon arrival to the emergency department patient states her respiratory distress has somewhat eased. States she her only complaint at this time is dysuria. TRAVEL OUTSIDE OF THE [place] IN LAST 30 DAYS: No - Related Data Allergies/Adverse Reactions: hydromorphone HCl [From Dilaudid] Allergy (Severe, Verified 09/24/18 17:12) Respiratory arrest codeine [Codeine] Allergy (Intermediate, Verified 09/24/18 17:12) Hallucinations Past Medical History - General Information source: Patient, Emergency Med Personnel - Social History Smoking Status: Unknown if Ever Smoked Family History: DM, Hyperlipidemia, Hypertension Patient has suicidal ideation: No Patient has homicidal ideation: No - Past Medical History Cardiac Medical History: Reports: Hx Congestive Heart Failure - Diastolic, Hx Coronary Artery Disease, Hx Heart Attack - cardiac stents x 2, Hx Hypercholesterolemia, Hx Hypertension, Hx Heart Murmur - aortic stenosis Denies: Hx DVT, Hx Pulmonary Embolism Pulmonary Medical History: Reports: Hx Asthma, Hx Bronchitis, Hx COPD, Hx Sleep Apnea - Bipap Denies: Hx Pneumonia, Hx Tuberculosis Neurological Medical History: Denies: Hx Cerebrovascular Accident, Hx Seizures Endocrine Medical History: Reports: Hx Diabetes Mellitus Type 2, Hx Hypothy roidism. Denies: Hx Diabetes Mellitus Type 1, Hx Hyperthyroidism Renal/ Medical History: Denies: Hx Peritoneal Dialysis GI Medical History: Reports: Hx Gastroesophageal Reflux Disease, Hx Ulcer. Denies: Hx Cirrhosis, Hx Hepatitis, Hx Ulcerative Colitis Musculoskeletal Medical History: Reports Hx Arthritis - generalized Skin Medical History: Reports Hx Cellulitis Psychiatric Medical History: Reports: Hx Depression Traumatic Medical History: Denies: Hx Traumatic Brain Injury Infectious Medical History: Denies: Hx Hepatitis, Hx HIV Past Surgical History: Reports: Hx Appendectomy, Hx Colostomy - then reversed, Hx Hysterectomy, Hx Neurologic Surgery - spinal fusion, Hx Orthopedic Surgery - carpal tunnel, polio surgery to left leg. Denies: Hx Pacemaker - Immunizations Immunizations up to date: Yes Hx Diphtheria, Pertussis, Tetanus Vaccination: Yes Hx Pneumococcal Vaccination: 08/18/14 Review of Systems - Review of Systems Constitutional: See HPI EENT: See HPI Cardiovascular: No symptoms reported Respiratory: See HPI Gastrointestinal: No symptoms reported Genitourinary: See HPI Female Genitourinary: No symptoms reported Musculoskeletal: No symptoms reported Skin: No symptoms reported Hematologic/Lymphatic: No symptoms reported Neurological/Psychological: No symptoms reported Physical Exam - Vital signs Vitals: Pulse Ox 97 11/10/18 04:57 - Notes Notes: GENERAL: Alert, interacts well. No acute distress. Patient on oxygen via nasal cannula 2 L/min. HEAD: Normocephalic, atraumatic. EYES: Pupils equal, round, and reactive to light. Extraocular movements intact. ENT: Oral mucosa moist, tongue midline. NECK: Full range of motion. Supple. Trachea midline. LUNGS: Clear to auscultation bilaterally apices, no wheezes, rales, or rhonchi. Minorly diminished bilateral bases. No respiratory distress. HEART: Regular rate and rhythm. No murmur ABDOMEN: Soft, non-tender. Non-distended. Bowel sounds present in all 4 quadrants. EXTREMITIES: Moves bilateral upper and right extremity with no abnormalities. Left lower extremity is somewhat contracted. Patient states she has a history of polio and typically uses a wheelchair to get around. BACK: no cervical, thoracic, lumbar midline tenderness. No saddle anesthesia, normal distal neurovascular exam. NEUROLOGICAL: Alert and oriented x3. Normal speech. cranial nerves II through XII grossly intact PSYCH: Normal affect, normal mood. SKIN: Warm, dry, normal turgor. No rashes or lesions noted. Course - Re-evaluation Re-evalutation: Patient's labs do show leukocytosis of 14, her VBG shows a PCO2 of 93.2 with a pH of 7.29. Patient's urine does show signs of infection, sent for culture, chest x-ray is unchanged from previous visits. Patient's BNP is 2490 which is actually improved compared to last admissions. Patient was placed on BiPAP to correct her respiratory acidosis. Discussed case with hospitalist Dr. Armendariz who agrees this patient should be admitted to the hospital for hypercapnia and urinary tract infection. - Vital Signs Vital signs: Temp Pulse Resp BP Pulse Ox 97.9 F 26 H 138/46 H 74 L 11/10/18 05:05 11/10/18 08:01 11/10/18 08:01 11/10/18 08:00 - Laboratory Result Diagrams: 11/10/18 05:08 11/10/18 05:08 Laboratory results interpreted by me: 11/10/18 11/10/18 11/10/18 05:08 05:08 05:08 WBC 14.0 H RBC 3.00 L Hgb 8.3 L Hct 25.7 L RDW 18.4 H Seg Neutrophils % 83.2 H Lymphocytes % 7.4 L Absolute Neutrophils 11.7 H VBG pH VBG pCO2 VBG HCO3 Chloride 93 L Carbon Dioxide 40 H* BUN 29 H Glucose 211 H NT-Pro-B Natriuret Pep 2490 H Albumin 3.2 L Urine Blood Ur Leukocyte Esterase 11/10/18 11/10/18 05:24 06:00 WBC RBC Hgb Hct RDW Seg Neutrophils % Lymphocytes % Absolute Neutrophils VBG pH 7.29 L VBG pCO2 93.2 H* VBG HCO3 44.1 H Chloride Carbon Dioxide BUN Glucose NT-Pro-B Natriuret Pep Albumin Urine Blood SMALL H Ur Leukocyte Esterase LARGE H Discharge - Discharge Clinical Impression: Hypercapnia Urinary tract infection Qualifiers: Urinary tract infection type: acute cystitis Hematuria presence: with hematuria Qualified Code(s): N30.01 - Acute cystitis with hematuria Condition: Stable Disposition: ADMITTED INPATIENT Admitting Provider: Hospitalist - Dr. Yoo Unit Admitted: Telemetry
--- NOTE | 2018-11-10 08:25 | PDOC H&P ---
History of Present Illness Admission Date/PCP: JEEVAN EARLY MD History of Present Illness: ALBERTO DIAL is a 73 year old female patient with multiple comorbidities including diastolic CHF, COPD, coronary artery disease status post stent placement twice, type 2 diabetes mellitus, hypothyroidism, obesity, hypertension, hyperlipidemia and depression brought by EMS with chief complaint of shortness of breath. Patient reports her oxygen saturation is in the 70s while she is on oxygen via CPAP. On arrival at ER her saturation increased to 83. Patient denies any chills, fever, chest pain, palpitation or diaphoresis. She does not have any nausea vomiting abdominal pain or change in her bowel habits. Even though her urinalysis suggest UTI patient denies any dysuria or urgency. Her blood work is unremarkable except for leukocytosis of 14,000 and BNP of 2400. Her VBG shows respiratory acidosis with pH of 7.1. Patient has been started on BiPAP and she reports this improvement. Past Medical History Cardiac Medical History: Reports: Congestive Heart Failure - Diastolic, Coronary Artery Disease, Myocardial Infarction - cardiac stents x 2, Hyperlipidema, Hypertension, Heart Murmur - aortic stenosis Denies: DVT, Pulmonary Embolism Pulmonary Medical History: Reports: Asthma, Bronchitis, Chronic Obstructive Pulmonary Disease (COPD), Sleep Apnea - Bipap Denies: Pneumonia, Tuberculosis Neurological Medical History: Denies: Seizures Endocrine Medical History: Reports: Diabetes Mellitus Type 2, Hypothyroidism Denies: Diabetes Mellitus Type 1, Hyperthyroidism GI Medical History: Reports: Gastroesophageal Reflux Disease Denies: Cirrhosis, Hepatitis, Ulcerative Colitis Musculoskeltal Medical History: Reports: Arthritis - generalized Psychiatric Medical History: Reports: Depression Traumatic Medical History: Denies: Traumatic Brain Injury Hematology: Reports: Anemia Infectious Medical History: Denies: HIV Past Surgical History Past Surgical History: Reports: Appendectomy, Colostomy - then reversed, Hysterectomy, Orthopedic Surgery - carpal tunnel, polio surgery to left leg Denies: Pacemaker Social History Smoking Status: Unknown if Ever Smoked Frequency of Alcohol Use: None Hx Recreational Drug Use: No Drugs: None Hx Prescription Drug Abuse: No - Advance Directive Resuscitation Status: Do Not Resuscitate Family History Family History: DM, Hyperlipidemia, Hypertension Parental Family History Reviewed: Yes Children Family History Reviewed: Yes Sibling(s) Family History Reviewed.: Yes Medication/Allergy Home Medications: Aspirin [Ecotrin 81 mg EC Tablet] 81 mg PO DAILY 09/24/18 Atorvastatin Calcium [Lipitor 40 mg Tablet] 40 mg PO QHS 09/24/18 Budesonide/Formoterol Fumarate [Symbicort HFA 160-4.5 mcg Inhaler 6 gm] 2 puff IH Q12 09/24/18 Calcium Carbonate/Vitamin D3 [Calcium 500-Vit D3 200 Tablet] 1 each PO DAILY 09/24/18 Clopidogrel Bisulfate [Plavix 75 mg Tablet] 75 mg PO DAILY 09/24/18 Furosemide [Lasix 40 mg Tablet] 40 mg PO BID 09/24/18 Glipizide [Glucotrol 10 mg Tablet] 10 mg PO QAM 09/24/18 Liothyronine Sodium [Cytomel] 10 mcg PO DAILY 09/24/18 Metformin HCl [Glucophage 500 mg Tablet] 500 mg PO BIDACBS 09/24/18 Metoprolol Succinate [Toprol Xl] 12.5 mg PO DAILY 09/24/18 Nitroglycerin [Nitrostat 0.4 mg (1/150 Gr) Tabs 25/Bottle] 1 tab SL Q5MP PRN 09/24/18 Potassium Chloride 30 meq PO DAILY 09/24/18 Rabeprazole Sodium [Aciphex] 20 mg PO DAILY 09/24/18 Terbinafine HCl [Lamisil 250 mg Tablet] 250 mg PO DAILY 09/24/18 Cetirizine HCl [Zyrtec 10 mg Tablet] 1 tab PO DAILY 10/17/18 Ipratropium/Albuterol Sulfate [Duoneb 3 ml Ampul] 3 ml NEB Q6HP PRN 10/17/18 Montelukast Sodium [Singulair 10 mg Tablet] 10 mg PO QHS 10/17/18 Allergies/Adverse Reactions: hydromorphone HCl [From Dilaudid] Allergy (Severe, Verified 09/24/18 17:12) Respiratory arrest codeine [Codeine] Allergy (Intermediate, Verified 09/24/18 17:12) Hallucinations Review of Systems Constitutional: PRESENT: as per HPI Eyes: PRESENT: as per HPI Nose, Mouth, and Throat: PRESENT: as per HPI Cardiovascular: PRESENT: as per HPI Gastrointestinal: PRESENT: as per HPI Neurological: PRESENT: as per HPI Physical Exam Vital Signs: Temp Pulse Resp BP Pulse Ox 97.9 F 25 H 142/44 H 100 11/10/18 05:05 11/10/18 06:00 11/10/18 05:00 11/10/18 06:00 Intake & Output 11/09/18 11/10/18 11/11/18 06:59 06:59 06:59 Weight 116 kg Results Laboratory Results: 11/10/18 05:08 11/10/18 05:08 11/10/18 11/10/18 11/10/18 05:08 05:08 05:24 WBC 14.0 H RBC 3.00 L Hgb 8.3 L Hct 25.7 L MCV 86 MCH 27.8 MCHC 32.5 RDW 18.4 H Plt Count 271 Seg Neutrophils % 83.2 H Lymphocytes % 7.4 L Monocytes % 6.9 Eosinophils % 1.9 Basophils % 0.6 Absolute Neutrophils 11.7 H Absolute Lymphocytes 1.0 Absolute Monocytes 1.0 Absolute Eosinophils 0.3 Absolute Basophils 0.1 VBG pH VBG pCO2 VBG HCO3 VBG Base Excess Sodium 139.0 Potassium 4.6 Chloride 93 L Carbon Dioxide 40 H* Anion Gap 6 BUN 29 H Creatinine 0.85 Est GFR ( Amer) > 60 Est GFR (Non-Af Amer) > 60 Glucose 211 H Lactic Acid Calcium 9.0 Total Bilirubin 0.5 AST 22 ALT 26 Alkaline Phosphatase 71 Total Protein 6.4 Albumin 3.2 L Urine Color STRAW Urine Appearance SLIGHTLY-CLOUDY Urine pH 5.0 Ur Specific Loiza 1.010 Urine Protein NEGATIVE Urine Glucose (UA) NEGATIVE Urine Ketones NEGATIVE Urine Blood SMALL H Urine Nitrite NEGATIVE Ur Leukocyte Esterase LARGE H Urine WBC (Auto) >182 Urine RBC (Auto) 3 11/10/18 11/10/18 06:00 06:00 WBC RBC Hgb Hct MCV MCH MCHC RDW Plt Count Seg Neutrophils % Lymphocytes % Monocytes % Eosinophils % Basophils % Absolute Neutrophils Absolute Lymphocytes Absolute Monocytes Absolute Eosinophils Absolute Basophils VBG pH 7.29 L VBG pCO2 93.2 H* VBG HCO3 44.1 H VBG Base Excess 13.6 Sodium Potassium Chloride Carbon Dioxide Anion Gap BUN Creatinine Est GFR ( Amer) Est GFR (Non-Af Amer) Glucose Lactic Acid 1.1 Calcium Total Bilirubin AST ALT Alkaline Phosphatase Total Protein Albumin Urine Color Urine Appearance Urine pH Ur Specific Loiza Urine Protein Urine Glucose (UA) Urine Ketones Urine Blood Urine Nitrite Ur Leukocyte Esterase Urine WBC (Auto) Urine RBC (Auto) 03/26/19 05:08 NT-Pro-B Natriuret Pep 2490 H Impressions: Chest X-Ray 11/10/18 05:12 IMPRESSION: No significant change. Assessment and Plan - Diagnosis (1) Acute respiratory failure with hypoxia and hypercapnia Is this a current diagnosis for this admission?: Yes Plan: We will put the patient on BiPAP and supplemental oxygen. (2) COPD exacerbation Is this a current diagnosis for this admission?: Yes Plan: Continue supplemental oxygen, bronchodilator and antibiotics. (3) Complicated UTI (urinary tract infection) Is this a current diagnosis for this admission?: Yes Plan: I will started on Levaquin. We will do also a urine culture. (4) Diastolic CHF Is this a current diagnosis for this admission?: Yes Plan: Compensated. We will continue her home medications. (5) cad status post 2 stent placement Is this a current diagnosis for this admission?: Yes Plan: Patient does not have any anginal symptoms. We will continue her home cardioprotective medications. (6) Hypertension Qualifiers: Hypertension type: essential hypertension Qualified Code(s): I10 - Essential (primary) hypertension Is this a current diagnosis for this admission?: Yes Plan: Continue her home medication (7) Hyperlipidemia Qualifiers: Hyperlipidemia type: unspecified Qualified Code(s): E78.5 - Hyperlipidemia, unspecified Is this a current diagnosis for this admission?: Yes Plan: Continue her home medication (8) Type 2 diabetes mellitus Is this a current diagnosis for this admission?: Yes Plan: We will put her on sliding scale and continue her home medication. (9) Morbid obesity with BMI of 45.0-49.9, adult Is this a current diagnosis for this admission?: Yes Plan: Since patient is bedridden it is difficult for her to lose weight and to modify her lifestyle. (10) Depression Is this a current diagnosis for this admission?: Yes Plan: In remission. We will continue her home medication.
[2018-11-10] MEDS ORDERED: ONDANSETRON HCL INJ/PF 4 MG/2 ML SDV IV PRN (08:33)
[2018-11-10] MEDS ORDERED: DEXTROSE 50%-WATER 25 GM/50 ML DISP.SYRIN IV PRN ×2 (08:39)
[2018-11-10] MEDS ORDERED: GLUCAGON,HUMAN RECOMB 1 MG INJ IM PRN (08:39)
[2018-11-10] MEDS ORDERED: DEXTROSE 40% GEL 15 GM TUBE PO PRN ×2 (08:39)
[2018-11-10] MEDS ORDERED: CLOPIDOGREL BISULFATE 75 MG TABLET ONE (09:34)
[2018-11-10] MEDS: LEVOFLOXACIN 750 MG/D5W RTU 750 MG/150 ML RTUPB IV SCH (09:39)
--- NOTE | 2018-11-10 09:51 | EKG REPORT ---
SEVERITY:- ABNORMAL ECG - SINUS RHYTHM ATRIAL PREMATURE COMPLEX RIGHT BUNDLE BRANCH BLOCK PROBABLE LVH WITH SECONDARY REPOL ABNRM : Confirmed by: Pebbles Small MD 10-Nov-2018 09:50:10
[2018-11-10] MEDS: METFORMIN HCL 500 MG TABLET PO SCH ×2 (09:58→17:12)
[2018-11-10] MEDS: CLOPIDOGREL BISULFATE 75 MG TABLET PO SCH (10:00)
[2018-11-10] MEDS: FAMOTIDINE 20 MG TABLET PO SCH ×2 (10:01→21:36)
[2018-11-10 10:02] LABS: ARTERIAL BLOOD BASE EXCESS 15.1 mmol/L; ARTERIAL BLOOD H2CO3 2.55 mmol/L (1.05-1.35); ARTERIAL BLOOD HCO3 43.6 mmol/L (20-24); ARTERIAL BLOOD O2 SATURATION 98.6 % (94-98); ARTERIAL BLOOD PH 7.33 (7.35-7.45); ARTERIAL BLOOD TOTAL CO2 46.2 mmol/L (21-25)
[2018-11-10 10:05] LABS: ARTERIAL BLOOD FIO2 50%
[2018-11-10] MEDS: ENOXAPARIN SODIUM INJ 40 MG/0.4 ML DISP.SYRIN SUBCUT SCH (10:09)
[2018-11-10] MEDS: DOCUSATE SODIUM 100 MG CAPSULE PO SCH ×2 (10:11→17:27)
[2018-11-10] MEDS: GLIPIZIDE 10 MG TABLET PO SCH (10:20)
[2018-11-10 10:29] LABS: ARTERIAL BLOOD PCO2 84.8 mmHg (35-45)
[2018-11-10] MEDS: INSULIN LISPRO 100 UNIT/ML 3 ML VIAL SUBCUT SCH ×3 (11:00→21:18)
[2018-11-10] MEDS: IPRATROPIUM/ALBUTEROL 0.5-2.5 MG/3 ML AMPUL NEB SCH ×4 (12:41→23:28)
[2018-11-10] MEDS: ACETAMINOPHEN 325 MG TABLET PO PRN (21:36)
[2018-11-11] MEDS: IPRATROPIUM/ALBUTEROL 0.5-2.5 MG/3 ML AMPUL NEB SCH ×5 (04:08→20:48)
[2018-11-11 06:36] LABS: ABSOLUTE BASOPHILS # (AUTO) 0.1 10^3/uL (0.0-0.2); ABSOLUTE EOSINOPHILS # (AUTO) 0.2 10^3/uL (0.0-0.6); ABSOLUTE LYMPHOCYTES (AUTO) 1.1 10^3/uL (0.5-4.7); ABSOLUTE MONOCYTES (AUTO) 0.8 10^3/uL (0.1-1.4); ABSOLUTE NEUT (AUTO) 5.7 10^3/uL (1.7-8.2); BASOPHILS % (AUTO) 0.8 % (0-2); HEMATOCRIT 26.1 % (36.0-47.0); HEMOGLOBIN 8.3 g/dL (12.0-15.5); LYMPHOCYTES % (AUTO) 14.3 % (13-45); MEAN CORPUSCULAR HEMOGLOBIN 27.4 pg (27.0-33.4); MEAN CORPUSCULAR VOLUME 86 fl (80-97); MONOCYTES % (AUTO) 10.2 % (3-13); PLATELET COUNT 245 10^3/uL (150-450); RED BLOOD COUNT 3.04 10^6/uL (3.72-5.28); SEGMENTED NEUTROPHILS % (AUTO) 72.7 % (42-78); TOTAL CELLS COUNTED % (AUTO) 100 %; WHITE BLOOD COUNT 7.8 10^3/uL (4.0-10.5)
[2018-11-11 06:37] LABS: BLOOD UREA NITROGEN 26 mg/dL (7-20); CALCIUM 8.8 mg/dL (8.4-10.2); CHLORIDE 93 mmol/L (98-107); POTASSIUM 4.1 mmol/L (3.6-5.0); SODIUM 140.8 mmol/L (137-145)
[2018-11-11 06:55] LABS: ANION GAP 7 (5-19); CARBON DIOXIDE 41 mmol/L (22-30); GLUCOSE 59 mg/dL (75-110)
[2018-11-11] MEDS: INSULIN LISPRO 100 UNIT/ML 3 ML VIAL SUBCUT SCH ×4 (07:05→21:23)
[2018-11-11] MEDS: METFORMIN HCL 500 MG TABLET PO SCH ×2 (07:42→16:21)
[2018-11-11] MEDS: GLIPIZIDE 10 MG TABLET PO SCH (07:42)
[2018-11-11] MEDS: LEVOFLOXACIN 750 MG/D5W RTU 750 MG/150 ML RTUPB IV SCH (10:55)
[2018-11-11] MEDS: DOCUSATE SODIUM 100 MG CAPSULE PO SCH ×2 (10:55→17:39)
[2018-11-11] MEDS: ENOXAPARIN SODIUM INJ 40 MG/0.4 ML DISP.SYRIN SUBCUT SCH (10:55)
[2018-11-11] MEDS: FAMOTIDINE 20 MG TABLET PO SCH ×2 (10:55→21:23)
[2018-11-11] MEDS: CLOPIDOGREL BISULFATE 75 MG TABLET PO SCH (10:55)
[2018-11-11] MEDS: RINGERS SOLUTION,LACTATED 1,000 ML IV PRN (14:16)
--- NOTE | 2018-11-11 17:58 | PDOC PROGRESS REPORT ---
Subjective Progress Note for:: 11/11/18 Subjective:: No adverse events overnight. She is been able to come off BiPAP for short periods but goes back on it. Her mental status has improved and she is able to interact and answer questions appropriately. I recommended that we get another ABG to assess her PCO2, but she said the last time someone tried to get one they tried 6 times and she does not want to have another attempt. Her blood sugars were low a couple of times and so her glipizide and metformin were held this morning. Reason For Visit: ACUTE ON CHRONIC HYPOXEMIC HYPERCARBIC RESPIRATORY Physical Exam Vital Signs: Temp Pulse Resp BP Pulse Ox 98.1 F 99 25 H 120/36 L 100 11/11/18 16:00 11/11/18 16:00 11/11/18 16:00 11/11/18 16:00 11/11/18 15:57 Intake & Output 11/10/18 11/11/18 11/12/18 06:59 06:59 06:59 Intake Total 200 630 Output Total 1150 900 Balance -950 -270 Weight 116 kg 121.1 kg General appearance: PRESENT: no acute distress, cooperative, disheveled, hard of hearing, morbidly obese Respiratory exam: PRESENT: decreased breath sounds, symmetrical. ABSENT: accessory muscle use, prolonged expiratory phas, rales, rhonchi, tachypnea, unlabored, wheezes Cardiovascular exam: PRESENT: RRR, +S1, +S2, systolic murmur - A loud harsh 3 out of 6 systolic murmur loudest at the right upper sternal border Pulses: PRESENT: normal carotid pulses Vascular exam: PRESENT: normal capillary refill GI/Abdominal exam: PRESENT: normal bowel sounds, soft. ABSENT: distended, guarding, rebound, tenderness Extremities exam: ABSENT: clubbing, pedal edema Musculoskeletal exam: PRESENT: normal inspection. ABSENT: deformity Neurological exam: PRESENT: alert, awake, oriented to person, oriented to place, oriented to time, oriented to situation Psychiatric exam: PRESENT: appropriate affect, normal mood Skin exam: PRESENT: dry, warm Results Laboratory Results: 11/11/18 05:37 11/11/18 05:37 11/11/18 11/11/18 05:37 05:37 WBC 7.8 RBC 3.04 L Hgb 8.3 L Hct 26.1 L MCV 86 MCH 27.4 MCHC 32.0 RDW 19.0 H Plt Count 245 Seg Neutrophils % 72.7 Lymphocytes % 14.3 Monocytes % 10.2 Eosinophils % 2.0 Basophils % 0.8 Absolute Neutrophils 5.7 Absolute Lymphocytes 1.1 Absolute Monocytes 0.8 Absolute Eosinophils 0.2 Absolute Basophils 0.1 Sodium 140.8 Potassium 4.1 Chloride 93 L Carbon Dioxide 41 H* Anion Gap 7 BUN 26 H Creatinine 0.71 Est GFR ( Amer) > 60 Est GFR (Non-Af Amer) > 60 Glucose 59 L Calcium 8.8 11/10/18 05:08 NT-Pro-B Natriuret Pep 2490 H Impressions: Chest X-Ray 11/10/18 05:12 IMPRESSION: No significant change. Assessment and Plan - Diagnosis (1) Acute respiratory failure with hypoxia and hypercapnia Is this a current diagnosis for this admission?: Yes Plan: Improving with BiPAP. She will let us check another ABG, I feel that a venous gas will be unreliable, keep on BiPAP for a while and watch her mental status, and if it continues to be satisfactory we can consider taken her off BiPAP for a while. (2) COPD exacerbation Is this a current diagnosis for this admission?: Yes Plan: Improving with current treatment. (3) Morbid obesity with BMI of 45.0-49.9, adult Is this a current diagnosis for this admission?: Yes Plan: Strongly encouraged lifestyle modification. It is noted that she is bedridden. (4) Urinary tract infection Qualifiers: Urinary tract infection type: acute cystitis Hematuria presence: with moar hua Qualified Code(s): N30.01 - Acute cystitis with hematuria Is this a current diagnosis for this admission?: Yes Plan: Continue Levaquin. - Time Time Spent with patient: 25-34 minutes
[2018-11-12] MEDS: IPRATROPIUM/ALBUTEROL 0.5-2.5 MG/3 ML AMPUL NEB SCH ×6 (00:14→21:15)
[2018-11-12] MEDS: RINGERS SOLUTION,LACTATED 1,000 ML IV PRN ×2 (02:56→20:19)
[2018-11-12] MEDS: ACETAMINOPHEN 325 MG TABLET PO PRN ×2 (05:38→13:59)
[2018-11-12] MEDS: INSULIN LISPRO 100 UNIT/ML 3 ML VIAL SUBCUT SCH ×4 (11:22→21:48)
[2018-11-12] MEDS: LEVOFLOXACIN 750 MG/D5W RTU 750 MG/150 ML RTUPB IV SCH (11:24)
[2018-11-12] MEDS: FAMOTIDINE 20 MG TABLET PO SCH ×2 (11:24→21:49)
[2018-11-12] MEDS: CLOPIDOGREL BISULFATE 75 MG TABLET PO SCH (11:24)
[2018-11-12] MEDS: METFORMIN HCL 500 MG TABLET PO SCH ×2 (11:24→17:56)
[2018-11-12] MEDS: DOCUSATE SODIUM 100 MG CAPSULE PO SCH ×2 (11:24→17:56)
[2018-11-12] MEDS: ENOXAPARIN SODIUM INJ 40 MG/0.4 ML DISP.SYRIN SUBCUT SCH (11:27)
[2018-11-12] MEDS ORDERED: FUROSEMIDE INJ/PF 40 MG/4 ML SDV ONE (12:59)
[2018-11-12] MEDS ORDERED: ONDANSETRON HCL INJ/PF 4 MG/2 ML SDV IV PRN (13:30)
--- NOTE | 2018-11-12 17:22 | PDOC PROGRESS REPORT ---
Subjective Progress Note for:: 11/12/18 Subjective:: No adverse events overnight. She rests comfortably while she is on BiPAP, but whenever she comes off she desaturates. She denies any chest pain or shortness of breath currently. She is awake and conversing easily. She continued to refuse to allow us to check another ABG. Reason For Visit: ACUTE ON CHRONIC HYPOXEMIC HYPERCARBIC RESPIRATORY Physical Exam Vital Signs: Temp Pulse Resp BP Pulse Ox 98.3 F 66 16 113/41 L 100 11/12/18 14:46 11/12/18 14:46 11/12/18 14:46 11/12/18 14:46 11/12/18 14:46 Intake & Output 11/11/18 11/12/18 11/13/18 06:59 06:59 06:59 Intake Total 200 2007 270 Output Total 1150 1450 Balance -950 557 270 Weight 121.1 kg 119.7 kg General appearance: PRESENT: no acute distress, cooperative, disheveled, hard of hearing, morbidly obese Respiratory exam: PRESENT: decreased breath sounds, symmetrical. ABSENT: accessory muscle use, prolonged expiratory phas, rales, rhonchi, tachypnea, unlabored, wheezes Cardiovascular exam: PRESENT: RRR, +S1, +S2, systolic murmur - A loud harsh 3 out of 6 systolic murmur loudest at the right upper sternal border Pulses: PRESENT: normal carotid pulses Vascular exam: PRESENT: normal capillary refill GI/Abdominal exam: PRESENT: normal bowel sounds, soft. ABSENT: distended, guarding, rebound, tenderness Extremities exam: ABSENT: clubbing, pedal edema Musculoskeletal exam: PRESENT: normal inspection. ABSENT: deformity Neurological exam: PRESENT: alert, awake, oriented to person, oriented to place, oriented to time, oriented to situation Psychiatric exam: PRESENT: appropriate affect, normal mood Skin exam: PRESENT: dry, warm Results Laboratory Results: 11/11/18 05:37 11/11/18 05:37 11/10/18 05:24 Catheterized Urine Urine Culture - Final Klebsiella Pneumoniae 11/10/18 05:08 NT-Pro-B Natriuret Pep 2490 H Impressions: Chest X-Ray 11/10/18 05:12 IMPRESSION: No significant change. Assessment and Plan - Diagnosis (1) Acute respiratory failure with hypoxia and hypercapnia Is this a current diagnosis for this admission?: Yes Plan: Working to stop her IV fluids, give her a dose of IV Lasix, wait for her to diurese a bit, and then take her off BiPAP and put her on the nasal cannula to see how she does. She has a trilogy device at home and so we will not need any sort of DME set up in this regard. (2) COPD exacerbation Is this a current diagnosis for this admission?: Yes Plan: Improving with current treatment. Will de-escalate her steroids once we are sure she will tolerate being off BiPAP for extended periods. (3) Morbid obesity with BMI of 45.0-49.9, adult Is this a current diagnosis for this admission?: Yes Plan: Strongly encouraged lifestyle modification. It is noted that she is bedridden. (4) Urinary tract infection Qualifiers: Urinary tract infection type: acute cystitis Hematuria presence: with hematuria Qualified Code(s): N30.01 - Acute cystitis with hematuria Is this a current diagnosis for this admission?: Yes Plan: This is turned out to be due to a Klebsiella pneumonia. It is sensitive to Levaquin she is already on for her COPD exacerbation. We will continue this for complete course of therapy. - Time Time Spent with patient: 25-34 minutes - Inpatient Certification Based on my medical assessment, after consideration of the patient's comorbidities, presenting symptoms, or acuity I expect that the services needed warrant INPATIENT care.: Yes I certify that my determination is in accordance with my understanding of Medicare's requirements for reasonable and necessary INPATIENT services [42 CFR 412.3e].: Yes Medical Necessity: Need Close Monitoring Due to Risk of Patient Decompensation, Other - Still has a need for BiPAP continuously - Plan Summary Plan Summary: Once she can come off BiPAP for extended periods while awake, she can be discharged home.
[2018-11-13] MEDS: IPRATROPIUM/ALBUTEROL 0.5-2.5 MG/3 ML AMPUL NEB SCH ×6 (00:41→20:36)
[2018-11-13] MEDS: ACETAMINOPHEN 325 MG TABLET PO PRN (07:55)
[2018-11-13] MEDS: INSULIN LISPRO 100 UNIT/ML 3 ML VIAL SUBCUT SCH ×4 (09:21→21:43)
--- NOTE | 2018-11-13 09:21 | PDOC PROGRESS REPORT ---
Subjective Progress Note for:: 11/13/18 Subjective:: ALBERTO DIAL is a 73 year old female patient with multiple comorbidities including diastolic CHF, COPD, CAD s/p PCI with stent x2, DM II, hypothyroidism, obesity, HTN, HLD and depression brought by EMS with chief complaint of shortness of breath. Patient reports her oxygen saturation is in the 70s while she is on oxygen via CPAP. On arrival at ER her saturation increased to 83. Patient denies any chills, fever, chest pain, palpitation or diaphoresis. She does not have any nausea vomiting abdominal pain or change in her bowel habits. Even though her urinalysis suggest UTI patient denies any dysuria or urgency. Her blood work is unremarkable except for leukocytosis of 14,000 and BNP of 2400. Her VBG shows respiratory acidosis with pH of 7.1. Patient has been started on BiPAP and she reports this improvement. 04/15/2019. No acute events overnight. Persistently dependent on BiPAP. Could not tolerate being weaned off to high flow nasal cannula. Complaining of shortness of breath, denies any chest pain, nausea, abdominal pain, urinary symptoms. Has not had a bowel movement since admission. P.o. tolerant. Has been refusing ABGs. SBP 116-133, afebrile, heart rate 60-119, SPO2 in the 90s on BiPAP FiO2 40% to 50 L/min. Urine culture from 11/09/2018 came back positive for Klebsiella pansensitive. Reason For Visit: ACUTE ON CHRONIC HYPOXEMIC HYPERCARBIC RESPIRATORY Physical Exam Vital Signs: Temp Pulse Resp BP Pulse Ox 98.7 F 72 18 114/45 L 95 11/13/18 03:55 11/13/18 08:33 11/13/18 08:33 11/13/18 03:55 11/13/18 08:33 Intake & Output 11/12/18 11/13/18 11/14/18 06:59 06:59 06:59 Intake Total 2006 1832 Output Total 1450 2900 Balance 557 -1067 Weight 119.7 kg 122.4 kg General appearance: PRESENT: morbidly obese Head exam: PRESENT: atraumatic, normocephalic Respiratory exam: PRESENT: decreased breath sounds, prolonged expiratory phas. ABSENT: rales, rhonchi, wheezes Cardiovascular exam: PRESENT: RRR. ABSENT: diastolic murmur, rubs, systolic murmur GI/Abdominal exam: PRESENT: normal bowel sounds, soft. ABSENT: distended, guarding, mass, organolmegaly, rebound, tenderness Extremities exam: PRESENT: full ROM. ABSENT: calf tenderness, clubbing, pedal edema Neurological exam: PRESENT: alert, awake, oriented to person, oriented to place, oriented to time, oriented to situation, CN II-XII grossly intact. ABSENT: motor sensory deficit Results Laboratory Results: 11/11/18 05:37 11/11/18 05:37 11/10/18 05:24 Catheterized Urine Urine Culture - Final Klebsiella Pneumoniae 11/10/18 05:08 NT-Pro-B Natriuret Pep 2490 H Impressions: Chest X-Ray 11/10/18 05:12 IMPRESSION: No significant change. Assessment and Plan - Diagnosis (1) Acute respiratory failure with hypoxia and hypercapnia Is this a current diagnosis for this admission?: Yes Plan: Mild improvement. Has been refusing ABGs. ABG on admission with severe respiratory acidosis and metabolic alkalosis. Today SPO2 in the 90s on BiPAP FiO2 40% to 50 L/min. This was likely exacerbated by lying pneumonia and volume resuscitation. IV fluids were held and patient received 1 dose of IV Lasix yesterday. Continue BiPAP, nebs, IV steroids and empiric IV antibiotics. She has a trilogy device at home and so we will not need any sort of DME set up in this regard. (2) COPD exacerbation Is this a current diagnosis for this admission?: Yes Plan: Mild improvement but still dependent on BiPAP. IV steroids, BiPAP, nebs and IV empiric antibiotics. (3) Morbid obesity with BMI of 45.0-49.9, adult Is this a current diagnosis for this admission?: Yes Plan: Encouraged lifestyle modification fortunately patient has history of poliomyelitis. (4) Urinary tract infection Qualifiers: Urinary tract infection type: acute cystitis Hematuria presence: with hematuria Qualified Code(s): N30.01 - Acute cystitis with hematuria Is this a current diagnosis for this admission?: Yes Plan: Urine culture from 11/09/2018 came back positive for Klebsiella pneumonia. Has been receiving empiric levofloxacin for her underlying pneumonia and COPD exacerbation. Patient is asymptomatic. (5) Constipation Qualifiers: Constipation type: unspecified constipation type Qualified Code(s): K59.00 - Constipation, unspecified Is this a current diagnosis for this admission?: Yes Plan: Started on bowel regimen. (6) Sleep apnea Qualifiers: Sleep apnea type: obstructive Qualified Code(s): G47.33 - Obstructive sleep apnea (adult) (pediatric) Is this a current diagnosis for this admission?: Yes Plan: Continue BiPAP. And has trilogy at home. (7) Obesity hypoventilation syndrome Is this a current diagnosis for this admission?: Yes Plan: As above. (8) Diastolic CHF Is this a current diagnosis for this admission?: No Plan: Monitor volume status. Continue Lasix guided by volume status and vitals. (9) Coronary artery disease Qualifiers: Coronary Disease-Associated Artery/Lesion type: lower [place] artery Is this a current diagnosis for this admission?: No Plan: History of CAD status post 2 stent placement. Tinea DAPT, statins, ANGELIQUE, beta blockers. (10) Hyperlipidemia Qualifiers: Hyperlipidemia type: unspecified Qualified Code(s): E78.5 - Hyperlipidemia, unspecified Is this a current diagnosis for this admission?: Yes Plan: Continue status. Life style and diet modification. (11) Hypertension Qualifiers: Hypertension type: essential hypertension Qualified Code(s): I10 - Essential (primary) hypertension Is this a current diagnosis for this admission?: Yes Plan: Normotensive. Continue current meds. Adjust meds as needed.
[2018-11-13] MEDS: METFORMIN HCL 500 MG TABLET PO SCH (10:11)
[2018-11-13] MEDS: CLOPIDOGREL BISULFATE 75 MG TABLET PO SCH (10:11)
[2018-11-13] MEDS: ENOXAPARIN SODIUM INJ 40 MG/0.4 ML DISP.SYRIN SUBCUT SCH (10:11)
[2018-11-13] MEDS: FAMOTIDINE 20 MG TABLET PO SCH ×2 (10:11→21:43)
[2018-11-13] MEDS: LEVOFLOXACIN 750 MG/D5W RTU 750 MG/150 ML RTUPB IV SCH (10:12)
[2018-11-13] MEDS ORDERED: DEXTROSE 40% GEL 15 GM TUBE PO PRN ×2 (12:45)
[2018-11-13] MEDS ORDERED: DEXTROSE 50%-WATER 25 GM/50 ML DISP.SYRIN IV PRN ×2 (12:45)
[2018-11-13] MEDS ORDERED: GLUCAGON,HUMAN RECOMB 1 MG INJ IM PRN (12:45)
[2018-11-13] MEDS ORDERED: METHYLPREDNISOLONE INJ 40 MG/1 ML SDV IV SCH (14:00)
[2018-11-13] MEDS: METHYLPREDNISOLONE INJ 125 MG/2 ML SDV IV SCH ×2 (16:01→21:42)
[2018-11-13] MEDS: DOCUSATE SODIUM 100 MG CAPSULE PO SCH ×2 (16:10→21:35)
[2018-11-13] MEDS: TERBINAFINE HCL 250 MG TABLET PO SCH (16:13)
[2018-11-13] MEDS ORDERED: FUROSEMIDE 40 MG TABLET PO SCH (18:00)
[2018-11-13] MEDS: ATORVASTATIN CALCIUM 40 MG TABLET PO SCH (21:43)
[2018-11-13] MEDS: INSULIN GLARGINE,HUM.REC.ANLOG 1,000 UNIT/10 ML VIAL SUBCUT SCH (21:44)
[2018-11-13] MEDS ORDERED: FUROSEMIDE 40 MG TABLET PO ONE (22:00)
[2018-11-14] MEDS: IPRATROPIUM/ALBUTEROL 0.5-2.5 MG/3 ML AMPUL NEB SCH ×6 (00:35→20:43)
[2018-11-14] MEDS: METHYLPREDNISOLONE INJ 125 MG/2 ML SDV IV SCH ×3 (05:01→21:56)
[2018-11-14 05:27] LABS: HEMATOCRIT 25.4 % (36.0-47.0); HEMOGLOBIN 8.5 g/dL (12.0-15.5); MEAN CORPUSCULAR HGB CONC 33.4 g/dL (32.0-36.0); MEAN CORPUSCULAR VOLUME 84 fl (80-97); PLATELET COUNT 252 10^3/uL (150-450); RED BLOOD COUNT 3.03 10^6/uL (3.72-5.28); RED CELL DISTRIBUTION WIDTH 18.7 % (11.5-14.0); WHITE BLOOD COUNT 7.3 10^3/uL (4.0-10.5)
[2018-11-14 05:40] LABS: ALANINE AMINOTRANSFERASE 16 U/L (9-52); ALBUMIN 3.1 g/dL (3.5-5.0); ALKALINE PHOSPHATASE 75 U/L (38-126); ASPARTATE AMINO TRANSFERASE 23 U/L (14-36); BILIRUBIN,DIRECT 0.5 mg/dL (0.0-0.4); BILIRUBIN,TOTAL 0.6 mg/dL (0.2-1.3); BLOOD UREA NITROGEN 23 mg/dL (7-20); CHLORIDE 91 mmol/L (98-107); GLUCOSE 248 mg/dL (75-110); POTASSIUM 4.2 mmol/L (3.6-5.0); SODIUM 138.2 mmol/L (137-145); TOTAL PROTEIN 5.9 g/dL (6.3-8.2)
[2018-11-14 05:54] LABS: ABSOLUTE LYMPHOCYTES# (MANUAL) 0.3 10^3/uL (0.5-4.7); ABSOLUTE MONOCYTES # (MANUAL) 0.1 10^3/uL (0.1-1.4); ABSOLUTE NEUTROPHILS# (MANUAL) 6.9 10^3/uL (1.7-8.2); BASOPHILS % (MANUAL) 0 % (0-2); EOSINOPHILS % (MANUAL) 0 % (0-6); LYMPHOCYTES % (MANUAL) 4 % (13-45); MONOCYTES % (MANUAL) 2 % (3-13); SEGMENTED NEUTROPHILS % (MAN) 94 % (42-78); TOTAL CELLS COUNTED 100
[2018-11-14 05:55] LABS: ANISOCYTOSIS 2+; PLATELET COMMENT ADEQUATE; POLYCHROMASIA 2+
[2018-11-14 06:04] LABS: ARTERIAL BLOOD BASE EXCESS 11.8 mmol/L; ARTERIAL BLOOD HCO3 39.2 mmol/L (20-24); ARTERIAL BLOOD O2 SATURATION 97.7 % (94-98); ARTERIAL BLOOD PH 7.37 (7.35-7.45); ARTERIAL BLOOD PO2 109.4 mmHg (80-100); ARTERIAL BLOOD TOTAL CO2 41.3 mmol/L (21-25)
[2018-11-14 06:05] LABS: ARTERIAL BLOOD FIO2 50%
[2018-11-14 06:06] LABS: ARTERIAL BLOOD PCO2 69.8 mmHg (35-45)
[2018-11-14 06:06] LABS: ANION GAP 6 (5-19); CARBON DIOXIDE 41 mmol/L (22-30)
[2018-11-14] MEDS: INSULIN LISPRO 100 UNIT/ML 3 ML VIAL SUBCUT SCH ×4 (08:06→21:55)
[2018-11-14] MEDS ORDERED: METOPROLOL SUCCINATE 25 MG TAB.SR.24H PO SCH (10:00)
[2018-11-14] MEDS: LEVOFLOXACIN 750 MG/D5W RTU 750 MG/150 ML RTUPB IV SCH (10:11)
[2018-11-14] MEDS: CLOPIDOGREL BISULFATE 75 MG TABLET PO SCH (10:11)
[2018-11-14] MEDS: FAMOTIDINE 20 MG TABLET PO SCH ×2 (10:11→21:56)
[2018-11-14] MEDS: DOCUSATE SODIUM 100 MG CAPSULE PO SCH ×2 (10:11→17:20)
[2018-11-14] MEDS: ENOXAPARIN SODIUM INJ 40 MG/0.4 ML DISP.SYRIN SUBCUT SCH (10:11)
[2018-11-14] MEDS: ASPIRIN 81 MG TABLET, ENT COATED PO SCH (10:11)
[2018-11-14] MEDS: (PENDING PHARMACY ID) (Liothyronine Sodium [Cytomel] 10 MCG) PO SCH (10:12)
[2018-11-14] MEDS: TERBINAFINE HCL 250 MG TABLET PO SCH (10:13)
--- NOTE | 2018-11-14 11:15 | PDOC PROGRESS REPORT ---
Subjective Progress Note for:: 11/14/18 Subjective:: ALBERTO DIAL is a 73 year old female patient with multiple comorbidities including diastolic CHF, COPD, CAD s/p PCI with stent x2, DM II, hypothyroidism, obesity, HTN, HLD and depression brought by EMS with chief complaint of shortness of breath. Patient reports her oxygen saturation is in the 70s while she is on oxygen via CPAP. On arrival at ER her saturation increased to 83. Patient denies any chills, fever, chest pain, palpitation or diaphoresis. She does not have any nausea vomiting abdominal pain or change in her bowel habits. Even though her urinalysis suggest UTI patient denies any dysuria or urgency. Her blood work is unremarkable except for leukocytosis of 14,000 and BNP of 2400. Her VBG shows respiratory acidosis with pH of 7.1. Patient has been started on BiPAP and she reports this improvement. 04/15/2019. No acute events overnight. Persistently dependent on BiPAP. Could not tolerate being weaned off to high flow nasal cannula. Complaining of shortness of breath, denies any chest pain, nausea, abdominal pain, urinary symptoms. Has not had a bowel movement since admission. P.o. tolerant. Has been refusing ABGs. SBP 116-133, afebrile, heart rate 60-119, SPO2 in the 90s on BiPAP FiO2 40% to 50 L/min. Urine culture from 11/09/2018 came back positive for Klebsiella pansensitive. 11/14/2018. No acute events overnight. Still dependent on continuous BiPAP. She was able to get a good night sleep. Denies any fever, chills, chest pain, nausea, vomiting, diarrhea or constipation. SBP 136 154, HR 50-80, RR 18-24, SPO2 98 200% O2 of 50% 50 L/min on BiPAP. Fluid balance of -560 ABG. PH 7.37, PCO2 69.8, PO2 109.4, bicarb 39.2 on FiO2 of 50%. Improving from admission. Reason For Visit: ACUTE ON CHRONIC HYPOXEMIC HYPERCARBIC RESPIRATORY Physical Exam Vital Signs: Temp Pulse Resp BP Pulse Ox 97.8 F 87 19 150/56 H 98 11/14/18 07:42 11/14/18 09:00 11/14/18 09:00 11/14/18 07:42 11/14/18 09:00 Intake & Output 11/13/18 11/14/18 11/15/18 06:59 06:59 06:59 Intake Total 1833 640 Output Total 2900 1200 Balance -1067 -560 Weight 122.4 kg 119.5 kg General appearance: PRESENT: no acute distress, morbidly obese, well-developed, well-nourished Head exam: PRESENT: atraumatic, normocephalic Eye exam: PRESENT: conjunctiva pink, EOMI, PERRLA. ABSENT: scleral icterus Respiratory exam: PRESENT: decreased breath sounds, prolonged expiratory phas Cardiovascular exam: PRESENT: RRR. ABSENT: diastolic murmur, rubs, systolic murmur GI/Abdominal exam: PRESENT: normal bowel sounds, soft. ABSENT: distended, guarding, mass, organolmegaly, rebound, tenderness Extremities exam: PRESENT: full ROM. ABSENT: calf tenderness, clubbing, pedal edema Neurological exam: PRESENT: alert, awake, oriented to person, oriented to place, oriented to time, oriented to situation, CN II-XII grossly intact, motor sensory deficit Results Laboratory Results: 11/14/18 05:03 11/14/18 05:03 11/14/18 11/14/18 11/14/18 05:03 05:03 05:55 WBC 7.3 RBC 3.03 L Hgb 8.5 L Hct 25.4 L MCV 84 MCH 28.0 MCHC 33.4 RDW 18.7 H Plt Count 252 Seg Neutrophils % Not Reportable Lymphocytes % Not Reportable Monocytes % Not Reportable Eosinophils % Not Reportable Basophils % Not Reportable Absolute Neutrophils Not Reportable Absolute Lymphocytes Not Reportable Absolute Monocytes Not Reportable Absolute Eosinophils Not Reportable Absolute Basophils Not Reportable Carbonic Acid 2.10 H HCO3/H2CO3 Ratio 18:1 ABG pH 7.37 ABG pCO2 69.8 H* ABG pO2 109.4 H ABG HCO3 39.2 H ABG O2 Saturation 97.7 ABG Base Excess 11.8 FiO2 50% Sodium 138.2 Potassium 4.2 Chloride 91 L Carbon Dioxide 41 H* Anion Gap 6 BUN 23 H Creatinine 0.55 Est GFR ( Amer) > 60 Est GFR (Non-Af Amer) > 60 Glucose 248 H Calcium 9.0 Total Bilirubin 0.6 AST 23 ALT 16 Alkaline Phosphatase 75 Total Protein 5.9 L Albumin 3.1 L 11/10/18 05:08 NT-Pro-B Natriuret Pep 2490 H Impressions: Chest X-Ray 11/10/18 05:12 IMPRESSION: No significant change. Assessment and Plan - Diagnosis (1) Acute respiratory failure with hypoxia and hypercapnia Is this a current diagnosis for this admission?: Yes Plan: Mild improvement. SBP 136 154, HR 50-80, RR 18-24, SPO2 98 200% O2 of 50% 50 L/min on BiPAP. Fluid balance of -560 ABG. PH 7.37, PCO2 69.8, PO2 109.4, bicarb 39.2 on FiO2 of 50%. Improving from admission. This was likely exacerbated by lying pneumonia and volume resuscitation. IV fluids were held and patient received 1 dose of IV Lasix yesterday. Continue BiPAP, nebs, IV steroids and empiric IV antibiotics. She has a trilogy device at home and so we will not need any sort of DME set up in this regard. (2) COPD exacerbation Is this a current diagnosis for this admission?: Yes Plan: Mild improvement but still dependent on BiPAP. IV steroids, BiPAP, nebs and IV empiric antibiotics. (3) Morbid obesity with BMI of 45.0-49.9, adult Is this a current diagnosis for this admission?: Yes Plan: Encouraged lifestyle modification fortunately patient has history of poliomyelitis. (4) Urinary tract infection Qualifiers: Urinary tract infection type: acute cystitis Hematuria presence: with hematuria Qualified Code(s): N30.01 - Acute cystitis with hematuria Is this a current diagnosis for this admission?: Yes Plan: Urine culture from 11/09/2018 came back positive for Klebsiella pneumonia. Has been receiving empiric levofloxacin for her underlying pneumonia and COPD exacerbation. Patient is asymptomatic. (5) Constipation Qualifiers: Constipation type: unspecified constipation type Qualified Code(s): K59.00 - Constipation, unspecified Is this a current diagnosis for this admission?: Yes Plan: Started on bowel regimen. (6) Sleep apnea Qualifiers: Sleep apnea type: obstructive Qualified Code(s): G47.33 - Obstructive sleep apnea (adult) (pediatric) Is this a current diagnosis for this admission?: Yes Plan: Continue BiPAP. And has trilogy at home. (7) Obesity hypoventilation syndrome Is this a current diagnosis for this admission?: Yes Plan: As above. (8) Diastolic CHF Is this a current diagnosis for this admission?: No Plan: Monitor volume status. Continue Lasix guided by volume status and vitals. Last echo in 2016. Will obtain a new echo. (9) Coronary artery disease Qualifiers: Coronary Disease-Associated Artery/Lesion type: [place] artery Is this a current diagnosis for this admission?: No Plan: History of CAD status post 2 stent placement. Tinea DAPT, statins, ANGELIQUE, beta blockers. (10) Hyperlipidemia Qualifiers: Hyperlipidemia type: unspecified Qualified Code(s): E78.5 - Hyperlipidemia, unspecified Is this a current diagnosis for this admission?: Yes Plan: Continue status. Life style and diet modification. (11) Hypertension Qualifiers: Hypertension type: essential hypertension Qualified Code(s): I10 - Essential (primary) hypertension Is this a current diagnosis for this admission?: Yes Plan: Normotensive. Continue current meds. Adjust meds as needed. (12) Diabetes mellitus type 2 in obese Is this a current diagnosis for this admission?: No Plan: Continue Accu-Chek, long-acting insulin, pre-meal insulin, sliding scale insulin diabetic diet. Outpatient PCP follow-up.
[2018-11-14] MEDS: FUROSEMIDE 40 MG TABLET PO SCH (17:20)
[2018-11-14] MEDS: INSULIN GLARGINE,HUM.REC.ANLOG 1,000 UNIT/10 ML VIAL SUBCUT SCH (21:55)
[2018-11-14] MEDS: ATORVASTATIN CALCIUM 40 MG TABLET PO SCH (21:56)
[2018-11-15] MEDS: IPRATROPIUM/ALBUTEROL 0.5-2.5 MG/3 ML AMPUL NEB SCH ×6 (00:16→20:36)
[2018-11-15] MEDS: METHYLPREDNISOLONE INJ 125 MG/2 ML SDV IV SCH ×2 (05:57→17:41)
[2018-11-15] MEDS: INSULIN LISPRO 100 UNIT/ML 3 ML VIAL SUBCUT SCH ×4 (08:34→21:10)
[2018-11-15] MEDS: TERBINAFINE HCL 250 MG TABLET PO SCH (10:16)
[2018-11-15] MEDS: LEVOFLOXACIN 750 MG/D5W RTU 750 MG/150 ML RTUPB IV SCH (10:16)
[2018-11-15] MEDS: METOPROLOL SUCCINATE 25 MG TAB.SR.24H PO SCH (10:16)
[2018-11-15] MEDS: FUROSEMIDE 40 MG TABLET PO SCH ×2 (10:16→17:41)
[2018-11-15] MEDS: CLOPIDOGREL BISULFATE 75 MG TABLET PO SCH (10:16)
[2018-11-15] MEDS: DOCUSATE SODIUM 100 MG CAPSULE PO SCH ×2 (10:16→17:41)
[2018-11-15] MEDS: ASPIRIN 81 MG TABLET, ENT COATED PO SCH (10:16)
[2018-11-15] MEDS: ENOXAPARIN SODIUM INJ 40 MG/0.4 ML DISP.SYRIN SUBCUT SCH (10:16)
[2018-11-15] MEDS: FAMOTIDINE 20 MG TABLET PO SCH ×2 (10:16→21:10)
[2018-11-15] MEDS: (PENDING PHARMACY ID) (Liothyronine Sodium [Cytomel] 10 MCG) PO SCH (10:17)
--- NOTE | 2018-11-15 10:43 | PDOC PROGRESS REPORT ---
Subjective Progress Note for:: 11/15/18 Subjective:: ALBERTO DIAL is a 73 year old female patient with multiple comorbidities including diastolic CHF, COPD, CAD s/p PCI with stent x2, DM II, hypothyroidism, obesity, HTN, HLD and depression brought by EMS with chief complaint of shortness of breath. Patient reports her oxygen saturation is in the 70s while she is on oxygen via CPAP. On arrival at ER her saturation increased to 83. Patient denies any chills, fever, chest pain, palpitation or diaphoresis. She does not have any nausea vomiting abdominal pain or change in her bowel habits. Even though her urinalysis suggest UTI patient denies any dysuria or urgency. Her blood work is unremarkable except for leukocytosis of 14,000 and BNP of 2400. Her VBG shows respiratory acidosis with pH of 7.1. Patient has been started on BiPAP and she reports this improvement. 04/15/2019. No acute events overnight. Persistently dependent on BiPAP. Could not tolerate being weaned off to high flow nasal cannula. Complaining of shortness of breath, denies any chest pain, nausea, abdominal pain, urinary symptoms. Has not had a bowel movement since admission. P.o. tolerant. Has been refusing ABGs. SBP 116-133, afebrile, heart rate 60-119, SPO2 in the 90s on BiPAP FiO2 40% to 50 L/min. Urine culture from 11/09/2018 came back positive for Klebsiella pansensitive. 11/14/2018. No acute events overnight. Still dependent on continuous BiPAP. She was able to get a good night sleep. Denies any fever, chills, chest pain, nausea, vomiting, diarrhea or constipation. SBP 136 154, HR 50-80, RR 18-24, SPO2 98 200% O2 of 50% 50 L/min on BiPAP. Fluid balance of -560 ABG. PH 7.37, PCO2 69.8, PO2 109.4, bicarb 39.2 on FiO2 of 50%. Improving from admission. 11/15/2018. No acute events overnight. Patient off of BiPAP since last night. Saturating 99% on 6 L through nasal cannula. At home she is using 3 L through nasal cannula. Denies any fever, chills, nausea, vomiting, diarrhea, cons tipation or any urinary symptoms. Reason For Visit: ACUTE ON CHRONIC HYPOXEMIC HYPERCARBIC RESPIRATORY Physical Exam Vital Signs: Temp Pulse Resp BP Pulse Ox 97.5 F 87 18 141/53 H 99 11/15/18 07:34 11/15/18 08:57 11/15/18 08:57 11/15/18 07:34 11/15/18 08:57 Intake & Output 11/14/18 11/15/18 11/16/18 06:59 06:59 06:59 Intake Total 640 1986 Output Total 1200 750 Balance -560 1236 Weight 119.5 kg 123.5 kg General appearance: PRESENT: no acute distress, morbidly obese, well-developed, well-nourished Head exam: PRESENT: atraumatic, normocephalic Neck exam: ABSENT: carotid bruit, JVD, lymphadenopathy, thyromegaly Respiratory exam: PRESENT: clear to auscultation joel, decreased breath sounds. ABSENT: rales, rhonchi, wheezes GI/Abdominal exam: PRESENT: normal bowel sounds, soft. ABSENT: distended, guarding, mass, organolmegaly, rebound, tenderness Extremities exam: PRESENT: full ROM. ABSENT: calf tenderness, clubbing, pedal edema Neurological exam: PRESENT: alert, awake, oriented to person, oriented to place, oriented to time, oriented to situation, CN II-XII grossly intact, motor sensory deficit Results Laboratory Results: 11/14/18 05:03 11/14/18 05:03 11/10/18 05:08 NT-Pro-B Natriuret Pep 2490 H Impressions: Chest X-Ray 11/10/18 05:12 IMPRESSION: No significant change. Assessment and Plan - Diagnosis (1) Acute respiratory failure with hypoxia and hypercapnia Is this a current diagnosis for this admission?: Yes Plan: Likely due to underlying pneumonia and COPD exacerbation. Improving. 91% on 6 L nasal cannula. ABG 11/14/2018. PH 7.37, PCO2 69.8, PO2 109.4, bicarb 39.2 on FiO2 of 50%. Improving from admission. Continue BiPAP, nebs, IV steroids and empiric IV antibiotics. Decrease IV steroids to twice daily and switch antibiotics to p.o. Day 5 of IV steroids. Day 5 of antibiotics. Can be DC'd home tomorrow if her oxygen requirement is back to baseline. She is on 3 L of oxygen at home. She has a trilogy device at home and so we will not need any sort of DME set up in this regard. (2) COPD exacerbation Is this a current diagnosis for this admission?: Yes Plan: Improving. Off of BiPAP. Saturating 91% on 6 L nasal cannula. Continue IV steroids, nocturnal BiPAP, nebs, antibiotics. (3) Morbid obesity with BMI of 45.0-49.9, adult Is this a current diagnosis for this admission?: Yes Plan: Encouraged lifestyle modification fortunately patient has history of poliomyelitis. (4) Urinary tract infection Qualifiers: Urinary tract infection type: acute cystitis Hematuria presence: with hematuria Qualified Code(s): N30.01 - Acute cystitis with hematuria Is this a current diagnosis for this admission?: Yes Plan: Urine culture from 11/09/2018 came back positive for Klebsiella pneumonia. Has been receiving empiric levofloxacin for her underlying pneumonia and COPD exacerbation. Patient is asymptomatic. (5) Constipation Qualifiers: Constipation type: unspecified constipation type Qualified Code(s): K59.00 - Constipation, unspecified Is this a current diagnosis for this admission?: Yes Plan: Started on bowel regimen. (6) Sleep apnea Qualifiers: Sleep apnea type: obstructive Qualified Code(s): G47.33 - Obstructive sleep apnea (adult) (pediatric) Is this a current diagnosis for this admission?: Yes Plan: Continue nocturnal BiPAP. And has trilogy at home. (7) Obesity hypoventilation syndrome Is this a current diagnosis for this admission?: Yes Plan: As above. (8) Diastolic CHF Is this a current diagnosis for this admission?: No Plan: Monitor volume status. Continue Lasix guided by volume status and vitals. Last echo in 2016. Pending echo. (9) Coronary artery disease Qualifiers: Coronary Disease-Associated Artery/Lesion type: andreafski artery Is this a current diagnosis for this admission?: No Plan: History of CAD status post 2 stent placement. Continue DAPT, statins, ANGELIQUE, beta blockers. (10) Hyperlipidemia Qualifiers: Hyperlipidemia type: unspecified Qualified Code(s): E78.5 - Hyperlipidemia, unspecified Is this a current diagnosis for this admission?: Yes Plan: Continue status. Life style and diet modification. (11) Hypertension Qualifiers: Hypertension type: essential hypertension Qualified Code(s): I10 - Essential (primary) hypertension Is this a current diagnosis for this admission?: Yes Plan: Normotensive. Continue current meds. Adjust meds as needed. (12) Diabetes mellitus type 2 in obese Is this a current diagnosis for this admission?: No Plan: Continue Accu-Chek, long-acting insulin, pre-meal insulin, sliding scale insulin diabetic diet. Outpatient PCP follow-up.
[2018-11-15] MEDS: ACETAMINOPHEN 325 MG TABLET PO PRN ×2 (11:04→16:07)
[2018-11-15] MEDS: GUAIFENESIN/D-METHORPHAN (200-20 MG) SYRUP 10 ML PO PRN (11:04)
[2018-11-15] MEDS: CARBOXYMETHYLCELLULOSE SOD 0.5% 0.4 ML DROPERETTE OU SCH (17:41)
[2018-11-15] MEDS: INSULIN GLARGINE,HUM.REC.ANLOG 1,000 UNIT/10 ML VIAL SUBCUT SCH (21:10)
[2018-11-15] MEDS: ATORVASTATIN CALCIUM 40 MG TABLET PO SCH (21:10)
[2018-11-16] MEDS: IPRATROPIUM/ALBUTEROL 0.5-2.5 MG/3 ML AMPUL NEB SCH ×6 (00:27→20:14)
[2018-11-16] MEDS: INSULIN LISPRO 100 UNIT/ML 3 ML VIAL SUBCUT SCH ×4 (08:27→22:41)
[2018-11-16] MEDS: METOPROLOL SUCCINATE 25 MG TAB.SR.24H PO SCH (11:13)
[2018-11-16] MEDS: LEVOFLOXACIN 500 MG TABLET PO SCH (11:13)
[2018-11-16] MEDS: FAMOTIDINE 20 MG TABLET PO SCH ×2 (11:13→22:40)
[2018-11-16] MEDS: CLOPIDOGREL BISULFATE 75 MG TABLET PO SCH (11:13)
[2018-11-16] MEDS: DOCUSATE SODIUM 100 MG CAPSULE PO SCH ×2 (11:13→17:43)
[2018-11-16] MEDS: TERBINAFINE HCL 250 MG TABLET PO SCH (11:13)
[2018-11-16] MEDS: ASPIRIN 81 MG TABLET, ENT COATED PO SCH (11:14)
[2018-11-16] MEDS: ENOXAPARIN SODIUM INJ 40 MG/0.4 ML DISP.SYRIN SUBCUT SCH (11:14)
[2018-11-16] MEDS: METHYLPREDNISOLONE INJ 125 MG/2 ML SDV IV SCH ×2 (11:14→17:43)
[2018-11-16] MEDS: CARBOXYMETHYLCELLULOSE SOD 0.5% 0.4 ML DROPERETTE OU SCH ×2 (11:14→17:45)
[2018-11-16] MEDS: (PENDING PHARMACY ID) (Liothyronine Sodium [Cytomel] 10 MCG) PO SCH (11:15)
[2018-11-16] MEDS: LIOTHYRONINE SODIUM 5 MCG TABLET PO SCH (11:53)
[2018-11-16] MEDS: FUROSEMIDE 20 MG TABLET PO SCH ×2 (13:14→17:43)
--- NOTE | 2018-11-16 15:55 | PDOC PROGRESS REPORT ---
Subjective Progress Note for:: 11/16/18 Subjective:: No adverse events overnight. She said she has not used the BiPAP in the last couple of nights because it is making her sinuses inflamed and irritated in her throat sore. She says her throat feels better today because she did have the BiPAP on last night. She denies any shortness of breath. No chest pain. Eating and drinking without difficulty. Reason For Visit: ACUTE ON CHRONIC HYPOXEMIC HYPERCARBIC RESPIRATORY Physical Exam Vital Signs: Temp Pulse Resp BP Pulse Ox 97.4 F 58 L 20 129/62 H 93 11/16/18 07:54 11/16/18 14:00 11/16/18 12:06 11/16/18 07:54 11/16/18 12:06 Intake & Output 11/15/18 11/16/18 11/17/18 06:59 06:59 06:59 Intake Total 1986 1280 240 Output Total 750 1800 400 Balance 1236 -520 -160 Weight 123.5 kg 121.3 kg General appearance: PRESENT: no acute distress, cooperative, disheveled, hard of hearing, morbidly obese Respiratory exam: PRESENT: decreased breath sounds, symmetrical. ABSENT: accessory muscle use, prolonged expiratory phas, rales, rhonchi, tachypnea, unlabored, wheezes Cardiovascular exam: PRESENT: RRR, +S1, +S2, systolic murmur - A loud harsh 3 out of 6 systolic murmur loudest at the right upper sternal border Pulses: PRESENT: normal carotid pulses Vascular exam: PRESENT: normal capillary refill GI/Abdominal exam: PRESENT: normal bowel sounds, soft. ABSENT: distended, guarding, rebound, tenderness Extremities exam: ABSENT: clubbing, pedal edema Musculoskeletal exam: PRESENT: normal inspection. ABSENT: deformity Neurological exam: PRESENT: alert, awake, oriented to person, oriented to place, oriented to time, oriented to situation Psychiatric exam: PRESENT: appropriate affect, normal mood Skin exam: PRESENT: dry, warm Results Laboratory Results: 11/14/18 05:03 11/14/18 05:03 11/10/18 06:08 Blood Blood Culture - Final NO GROWTH IN 5 DAYS 11/10/18 05:08 Blood Blood Culture - Final NO GROWTH IN 5 DAYS 11/10/18 05:08 NT-Pro-B Natriuret Pep 2490 H Impressions: Chest X-Ray 11/10/18 05:12 IMPRESSION: No significant change. Assessment and Plan - Diagnosis (1) Acute respiratory failure with hypoxia and hypercapnia Is this a current diagnosis for this admission?: Yes Plan: Resolved. Home O2 as she normally uses along with as needed BiPAP. She was refusing to allow us to check ABGs anymore. Her mental status is at baseline (2) COPD exacerbation Is this a current diagnosis for this admission?: Yes Plan: Resolved. (3) Morbid obesity with BMI of 45.0-49.9, adult Is this a current diagnosis for this admission?: Yes Plan: Encouraged lifestyle modification (4) Urinary tract infection Qualifiers: Urinary tract infection type: acute cystitis Hematuria presence: with hematuria Qualified Code(s): N30.01 - Acute cystitis with hematuria Is this a current diagnosis for this admission?: Yes Plan: Resolved (5) Aortic stenosis Qualifiers: Cardiac valve disease etiology: nonrheumatic Qualified Code(s): I35.0 - Nonrheumatic aortic (valve) stenosis Is this a current diagnosis for this admission?: Yes Plan: Dr. Tellez look at the previous echocardiogram, and because of the quality of the study wanted to have it redone. He was concerned about the progression of her aortic stenosis from her previous study. He said that if it indeed has progressed as much as the most recent study would indicate, that she would need to be transferred to a tertiary care center where she can have a left heart catheterization and consideration of a valvular intervention. She said that she had her 2 stents placed at [facility] several years ago and would want to go there if she needed to be transferred. - Time Time Spent with patient: 25-34 minutes
--- NOTE | 2018-11-16 21:41 | XCELERA REPORT ---
[address] [address] Transthoracic Echocardiogram Report Name: ALBERTO DIAL Age: 73 yrs Gender: Female : 1945 Patient Status: Inpatient Patient Location: [facility] Study Date: 11/14/2018 01:41 PM Height: 62 in Weight: 263 lb BSA: 2.1 m2 Reason For Study: CHF Ordering Physician: NADIA HERNANDEZ Performed By: Dolores Castellanos Interpretation Summary Study repeated by a second heat treat technician, first attempt images were poor. Min post pericardial effusion. Aortic valve mod calcified and mod stenosis, RCC is fixed, PPG is 64mmHg MPG is 44mmHg, mod AR with no LV enlargement. LV is normal size, with moderate concentric LVH 17mm, and no LV enlargement despite mod AR. RWMA seen only in the inferoseptal wall. LVEF is normal > 65% with evidence of LV diastolic dysfuntion. RH is not enlarged. RAP is estim 3, RVSP is 27, suspect sampline error, is not consisten with her chronic COPD and PaCO2 of 69. MMode/2D Measurements & Calculations RVDd: 3.4 cm LVIDd: 4.9 cm FS: 32.5 % Ao root diam: 2.3 cm IVSd: 1.6 cm LVIDs: 3.3 cm EDV(Teich): 111.2 ml LVPWd: 1.8 cm ESV(Teich): 43.8 ml Ao root area: 4.1 cm2 LA dimension: 5.1 cm EF(Teich): 60.6 % LVOT diam: 2.1 cm LVOT area: 3.4 cm2 Doppler Measurements & Calculations MV E max kiera: MV P1/2t max kiera: Ao V2 max: AI max kiera: 133.3 cm/sec 96.4 cm/sec 397.7 cm/sec 455.5 cm/sec MV A max kiera: MV P1/2t: 32.9 msec Ao max PG: AI max P.1 cm/sec MVA(P1/2t): 6.7 cm2 63.3 mmHg 83.0 mmHg MV E/A: 1.2 MV dec slope: Ao V2 mean: AI dec slope: 301.6 cm/sec 328.3 cm/sec2 857.4 cm/sec2 Ao mean PG: AI P1/2t: MV dec time: 40.8 mmHg 406.4 msec 0.21 sec Ao V2 VTI: 119.0 cm LINDSEY(I,D): 0.76 cm2 LINDSEY(V,D): 0.88 cm2 LV V1 max PG: SV(LVOT): 90.1 ml PA V2 max: TR max kiera: 4.3 mmHg 97.7 cm/sec 242.4 cm/sec LV V1 mean PG: PA max PG: TR max P.2 mmHg 3.8 mmHg 23.5 mmHg LV V1 max: 103.8 cm/sec LV V1 mean: 68.7 cm/sec LV V1 VTI: 26.6 cm AV P1/2t-pr_phl: MV P1/2t-pr_phl: 406.4 msec 45.2 msec Atria The left atrium is moderately dilated. Mitral Valve There is moderate mitral annular calcification. The mitral valve leaflets appear normal. There is no evidence of stenosis, fluttering, or prolapse. There is mild mitral leaflet calcification. There is no evidence of mitral valve prolapse. There is no mitral valve stenosis. There is no mitral regurgitation noted. Aortic Valve The aortic valve is trileaflet. The aortic valve is moderately calcified. Cannot exclude aortic valvular vegetation. There is a moderate amount of aortic regurgitation. Great Vessels There is aortic root sclerosis/calcification. Effusions Small pericardial effusion. : NADIA HERNANDEZ > Huang Tellez
[2018-11-16] MEDS: ATORVASTATIN CALCIUM 40 MG TABLET PO SCH (22:40)
[2018-11-16] MEDS: INSULIN GLARGINE,HUM.REC.ANLOG 1,000 UNIT/10 ML VIAL SUBCUT SCH (22:40)
[2018-11-16] MEDS: GUAIFENESIN/D-METHORPHAN (200-20 MG) SYRUP 10 ML PO PRN (22:40)
[2018-11-17] MEDS: IPRATROPIUM/ALBUTEROL 0.5-2.5 MG/3 ML AMPUL NEB SCH ×6 (00:15→20:07)
[2018-11-17] MEDS: INSULIN LISPRO 100 UNIT/ML 3 ML VIAL SUBCUT SCH ×4 (09:34→21:37)
[2018-11-17] MEDS: METHYLPREDNISOLONE INJ 125 MG/2 ML SDV IV SCH (09:35)
[2018-11-17] MEDS: DOCUSATE SODIUM 100 MG CAPSULE PO SCH ×2 (09:35→17:39)
[2018-11-17] MEDS: LIOTHYRONINE SODIUM 5 MCG TABLET PO SCH (09:36)
[2018-11-17] MEDS: FUROSEMIDE 20 MG TABLET PO SCH ×2 (09:37→17:37)
[2018-11-17] MEDS: FAMOTIDINE 20 MG TABLET PO SCH ×2 (09:37→21:37)
[2018-11-17] MEDS: TERBINAFINE HCL 250 MG TABLET PO SCH (09:37)
[2018-11-17] MEDS: CARBOXYMETHYLCELLULOSE SOD 0.5% 0.4 ML DROPERETTE OU SCH ×2 (09:37→17:40)
[2018-11-17] MEDS: CLOPIDOGREL BISULFATE 75 MG TABLET PO SCH (09:37)
[2018-11-17] MEDS: ENOXAPARIN SODIUM INJ 40 MG/0.4 ML DISP.SYRIN SUBCUT SCH (09:38)
[2018-11-17] MEDS: METOPROLOL SUCCINATE 25 MG TAB.SR.24H PO SCH (09:38)
[2018-11-17] MEDS: LEVOFLOXACIN 500 MG TABLET PO SCH (09:38)
[2018-11-17] MEDS: ASPIRIN 81 MG TABLET, ENT COATED PO SCH (09:39)
[2018-11-17] MEDS: ACETAMINOPHEN 325 MG TABLET PO PRN (16:26)
--- NOTE | 2018-11-17 17:27 | PDOC PROGRESS REPORT ---
Subjective Progress Note for:: 11/17/18 Subjective:: No adverse events overnight. No new complaints. She says her main concern today is that she is having trouble coughing up her sputum and she wanted some Mucinex. I told her she need to drink plenty of water with that, but she says she cannot drink a whole lot of water because she feels like she just cannot get it down, but she seems to be able to drink other liquids without any problems. She is definitely eating without any problems. Breathing feels like it is at its baseline. She still having some intermittent chest pain. Reason For Visit: ACUTE ON CHRONIC HYPOXEMIC HYPERCARBIC RESPIRATORY Physical Exam Vital Signs: Temp Pulse Resp BP Pulse Ox 97.5 F 67 18 142/42 H 92 11/17/18 03:17 11/17/18 16:00 11/17/18 16:00 11/17/18 03:17 11/17/18 16:00 Intake & Output 11/16/18 11/17/18 11/18/18 06:59 06:59 06:59 Intake Total 1280 690 Output Total 1800 1425 Balance -520 -735 Weight 121.3 kg 121 kg General appearance: PRESENT: no acute distress, cooperative, disheveled, hard of hearing, morbidly obese Respiratory exam: PRESENT: decreased breath sounds, symmetrical. ABSENT: accessory muscle use, prolonged expiratory phas, rales, rhonchi, tachypnea, unlabored, wheezes Cardiovascular exam: PRESENT: RRR, +S1, +S2, systolic murmur - A loud harsh 3 out of 6 systolic murmur loudest at the right upper sternal border Pulses: PRESENT: normal carotid pulses Vascular exam: PRESENT: normal capillary refill GI/Abdominal exam: PRESENT: normal bowel sounds, soft. ABSENT: distended, guarding, rebound, tenderness Extremities exam: ABSENT: clubbing, pedal edema Musculoskeletal exam: PRESENT: normal inspection. ABSENT: deformity Neurological exam: PRESENT: alert, awake, oriented to person, oriented to place, oriented to time, oriented to situation Psychiatric exam: PRESENT: appropriate affect, normal mood Skin exam: PRESENT: dry, warm Results Laboratory Results: 11/14/18 05:03 11/14/18 05:03 11/10/18 05:08 NT-Pro-B Natriuret Pep 2490 H Impressions: Chest X-Ray 11/10/18 05:12 IMPRESSION: No significant change. Assessment and Plan - Diagnosis (1) Acute respiratory failure with hypoxia and hypercapnia Is this a current diagnosis for this admission?: Yes Plan: Resolved. Home O2 as she normally uses along with as needed BiPAP. She was refusing to allow us to check ABGs anymore. Her mental status is at baseline (2) COPD exacerbation Is this a current diagnosis for this admission?: Yes Plan: Resolved. De-escalating steroids tapering to off (3) Morbid obesity with BMI of 45.0-49.9, adult Is this a current diagnosis for this admission?: Yes Plan: Encouraged lifestyle modification (4) Urinary tract infection Qualifiers: Urinary tract infection type: acute cystitis Hematuria presence: with hematuria Qualified Code(s): N30.01 - Acute cystitis with hematuria Is this a current diagnosis for this admission?: Yes Plan: Resolved (5) Aortic stenosis Qualifiers: Cardiac valve disease etiology: nonrheumatic Qualified Code(s): I35.0 - Nonrheumatic aortic (valve) stenosis Is this a current diagnosis for this admission?: Yes Plan: Dr. Tellez repeated the echocardiogram and compared to the over from 3 years ago, and feels like her aortic stenosis has progressed. Because of the progression in her multiple comorbidities, and the fact that she still having some intermittent angina, he feels like she needs to be transferred. She says she had her stents put in at [facility] and will want to be transferred there. I have been in a call to the transfer center and am awaiting a call back. - Time Time Spent with patient: 35 or more minutes
[2018-11-17] MEDS: INSULIN GLARGINE,HUM.REC.ANLOG 1,000 UNIT/10 ML VIAL SUBCUT SCH (21:37)
[2018-11-17] MEDS: ATORVASTATIN CALCIUM 40 MG TABLET PO SCH (21:37)
[2018-11-17] MEDS: METHYLPREDNISOLONE INJ 40 MG/1 ML SDV IV SCH (21:37)
[2018-11-17] MEDS: BISACODYL 5 MG TABEC PO PRN (21:37)
[2018-11-18] MEDS: IPRATROPIUM/ALBUTEROL 0.5-2.5 MG/3 ML AMPUL NEB SCH ×5 (00:01→16:32)
[2018-11-18] MEDS: INSULIN LISPRO 100 UNIT/ML 3 ML VIAL SUBCUT SCH ×3 (08:33→16:59)
[2018-11-18] MEDS: FAMOTIDINE 20 MG TABLET PO SCH (09:16)
[2018-11-18] MEDS: LEVOFLOXACIN 500 MG TABLET PO SCH (09:16)
[2018-11-18] MEDS: METHYLPREDNISOLONE INJ 40 MG/1 ML SDV IV SCH (09:16)
[2018-11-18] MEDS: FUROSEMIDE 20 MG TABLET PO SCH (09:17)
[2018-11-18] MEDS: CLOPIDOGREL BISULFATE 75 MG TABLET PO SCH (09:17)
[2018-11-18] MEDS: ASPIRIN 81 MG TABLET, ENT COATED PO SCH (09:17)
[2018-11-18] MEDS: LIOTHYRONINE SODIUM 5 MCG TABLET PO SCH (09:18)
[2018-11-18] MEDS: DOCUSATE SODIUM 100 MG CAPSULE PO SCH (09:18)
[2018-11-18] MEDS: ENOXAPARIN SODIUM INJ 40 MG/0.4 ML DISP.SYRIN SUBCUT SCH (09:19)
[2018-11-18] MEDS: CARBOXYMETHYLCELLULOSE SOD 0.5% 0.4 ML DROPERETTE OU SCH (09:19)
[2018-11-18 11:55] VITALS: BP 174/40
[2018-11-18] MEDS: BISACODYL 5 MG TABEC PO PRN (14:46)
[2018-11-18] MEDS: METOPROLOL SUCCINATE 25 MG TAB.SR.24H PO SCH (14:46)
[2018-11-18] MEDS ORDERED: NA PHOS,M-B/NA PHOS,DI-BA (ADULT) 133 ML ENEMA PR PRN (15:35)
--- NOTE | 2018-11-18 16:27 | PDOC DISCHARGE SUMMARY ---
General - Admit/Disc Date/PCP Admission Date/Primary Care Provider: 11/10/18 08:21 JEEVAN EARLY MD Discharge Date: 11/18/18 - Discharge Diagnosis (1) Acute respiratory failure with hypoxia and hypercapnia Is this a current diagnosis for this admission?: Yes Summary: She is typically on oxygen at home with BiPAP or trilogy device at night. She is now back to baseline. (2) COPD exacerbation Is this a current diagnosis for this admission?: Yes Summary: She stabilized quickly on steroids. Given her comorbidities I will think we need to continue steroids at home. She is not been wheezing in several days. We stopped her antibiotics also. (3) Morbid obesity with BMI of 45.0-49.9, adult Is this a current diagnosis for this admission?: Yes Summary: Strongly encouraged lifestyle modification (4) Urinary tract infection Is this a current diagnosis for this admission?: Yes Summary: She completed a course of Levaquin for Klebsiella pneumoniae UTI (5) Aortic stenosis Is this a current diagnosis for this admission?: Yes Summary: She will follow-up at the [facility] for a few workup for aortic valve intervention. - Additional Information Resuscitation Status: Do Not Resuscitate Discharge Diet: Cardiac, Diabetic Discharge Activity: No Driving, Supervised Activity, No tub bath Home Medications: Aspirin [Ecotrin 81 mg EC Tablet] 81 mg PO DAILY 11/10/18 Atorvastatin Calcium [Lipitor 40 mg Tablet] 40 mg PO QHS 11/10/18 Budesonide/Formoterol Fumarate [Symbicort HFA 160-4.5 mcg Inhaler 6 gm] 2 puff IH Q12 11/10/18 Ca Citrate/Mgox/Vit D3/B6/Min [Citracal Plus Tablet] 1 tab PO DAILY 11/10/18 Cetirizine HCl [Zyrtec 10 mg Tablet] 10 mg PO DAILY 11/10/18 Clopidogrel Bisulfate [Plavix 75 mg Tablet] 75 mg PO DAILY 11/10/18 Furosemide [Lasix 40 mg Tablet] 60 mg PO DAILY 11/10/18 Glipizide [Glucotrol 10 mg Tablet] 10 mg PO DAILY 11/10/18 Liothyronine Sodium [Cytomel] 10 mcg PO DAILY 11/10/18 Metformin HCl [Glucophage 500 mg Tablet] 500 mg PO BID 11/10/18 Montelukast Sodium [Singulair 10 mg Tablet] 10 mg PO QPM 11/10/18 Nitroglycerin [Nitrostat 0.4 mg (1/150 Gr) Tabs 25/Bottle] 0.4 mg SL Q5MP PRN 11/10/18 Rabeprazole Sodium [Aciphex] 20 mg PO DAILY 11/10/18 Terbinafine HCl [Lamisil 250 mg Tablet] 250 mg PO DAILY 11/10/18 Metoprolol Succinate [Toprol Xl 25 mg Tab.sr] 25 mg PO DAILY #0 11/18/18 Potassium Chloride [Klor-Con 10 Meq Capsule ER] 10 meq PO DAILY #0 11/18/18 History of Present Illness History of Present Illness: ALBERTO DIAL is a 73 year old female with multiple comorbidities including diastolic CHF, COPD, coronary artery disease status post stent placement twice, type 2 diabetes mellitus, hypothyroidism, obesity, hypertension, hyperlipidemia and depression brought by EMS with chief complaint of shortness of breath. Patient reports her oxygen saturation is in the 70s while she is on oxygen via CPAP. On arrival at ER her saturation increased to 83. Patient denies any chills, fever, chest pain, palpitation or diaphoresis. She does not have any nausea vomiting abdominal pain or change in her bowel habits. Even though her urinalysis suggest UTI patient denies any dysuria or urgency. Her blood work is unremarkable except for leukocytosis of 14,000 and BNP of 2400. Her VBG shows respiratory acidosis with pH of 7.1. Patient has been started on BiPAP and she reports this improvement. Hospital Course Hospital Course: She does not like to use her BiPAP at home because it makes her throat dry, and so she wound up retaining CO2, which she is done before in this situation. She also look little bit fluid overloaded so was given some Lasix. Her mental status improved with BiPAP, but she will let us continue to check ABGs to mon itor her progress because she said it hurt too much. She started wheezing several days ago and received several days of steroids at this point, and says she is no longer wheezing were not going to send her home on any steroids. Her urine culture was positive but she never complained of any dysuria, but regardless she has received a course of Levaquin. She was seen by cardiology over her aortic stenosis, which apparently has progressed on echocardiogram since her last assessment which was about 3 years ago. I spoke with the group cio at [facility] who reviewed the case and said that she did not need to be transferred for an urgent valvular intervention, but that she definitely needs to be worked up, and so they are going to arrange for follow her up at that her [facility] clinic. Her labs and examination were reassuring and she was discharged home with home health. Physical Exam Vital Signs: Temp Pulse Resp BP Pulse Ox 97.6 F 74 20 174/40 H 100 11/18/18 11:54 11/18/18 14:00 11/18/18 13:00 11/18/18 11:54 11/18/18 13:00 Intake & Output 11/17/18 11/18/18 11/19/18 06:59 06:59 06:59 Intake Total 690 844 Output Total 1425 1375 Balance -735 -531 Weight 121 kg 118.4 kg General appearance: PRESENT: no acute distress, cooperative, disheveled, hard of hearing, morbidly obese Respiratory exam: PRESENT: decreased breath sounds, symmetrical. ABSENT: accessory muscle use, prolonged expiratory phas, rales, rhonchi, tachypnea, unlabored, wheezes Cardiovascular exam: PRESENT: RRR, +S1, +S2, systolic murmur - A loud harsh 3 out of 6 systolic murmur loudest at the right upper sternal border Pulses: PRESENT: normal carotid pulses Vascular exam: PRESENT: normal capillary refill GI/Abdominal exam: PRESENT: normal bowel sounds, soft. ABSENT: distended, guarding, rebound, tenderness Extremities exam: ABSENT: clubbing, pedal edema Musculoskeletal exam: PRESENT: normal inspection. ABSENT: deformity Neurological exam: PRESENT: alert, awake, oriented to person, oriented to place, oriented to time, oriented to situation Psychiatric exam: PRESENT: appropriate affect, normal mood Skin exam: PRESENT: dry, warm Results Laboratory Results: 11/14/18 05:03 11/14/18 05:03 11/10/18 05:08 NT-Pro-B Natriuret Pep 2490 H Impressions: Chest X-Ray 11/10/18 05:12 IMPRESSION: No significant change. Qualifiers - * PATIENT BEING DISCHARGED WITH ANY OF THE FOLLOWING DIAGNOSIS: No
== END 2018-11-18 17:47 | disposition home health service (06) | DRG 189 ==
LOC: ER 04:53 → EH 08:21 → 3S 11:33
PROVIDERS: ADMIT Internal Medicine; ATTEND Internal Medicine
PROC: 5A09557 Assistance with Respiratory Ventilation, Greater than 96 Consecutive Hours, Continuous Positive Airway Pressure (ICD-10-PCS; principal; 2018-11-10)
DX: J96.02 Acute respiratory failure with hypercapnia (principal); I50.32 Chronic diastolic (congestive) heart failure; J44.1 Chronic obstructive pulmonary disease with (acute) exacerbation; Z68.42 Body mass index [BMI] 45.0-49.9, adult; E66.2 Morbid (severe) obesity with alveolar hypoventilation; N39.0 Urinary tract infection, site not specified; J96.01 Acute respiratory failure with hypoxia; I25.10 Atherosclerotic heart disease of native coronary artery without angina pectoris; E11.9 Type 2 diabetes mellitus without complications; E03.9 Hypothyroidism, unspecified; I11.0 Hypertensive heart disease with heart failure; E78.5 Hyperlipidemia, unspecified; F32.9 Major depressive disorder, single episode, unspecified; M15.9 Polyosteoarthritis, unspecified; I35.0 Nonrheumatic aortic (valve) stenosis; B96.1 Klebsiella pneumoniae [K. pneumoniae] as the cause of diseases classified elsewhere; K59.00 Constipation, unspecified; Z66 Do not resuscitate; Z95.5 Presence of coronary angioplasty implant and graft; Z90.49 Acquired absence of other specified parts of digestive tract; Z90.710 Acquired absence of both cervix and uterus; Z83.3 Family history of diabetes mellitus; Z83.438 Family history of other disorder of lipoprotein metabolism and other lipidemia; Z82.49 Family history of ischemic heart disease and other diseases of the circulatory system; Z79.84 Long term (current) use of oral hypoglycemic drugs; Z88.6 Allergy status to analgesic agent; Z79.899 Other long term (current) drug therapy; Z79.82 Long term (current) use of aspirin
CPT/HCPCS: 36415; 71045; 80048; 80053; 81001; 82803; 82962; 83036; 83605; 83880; 85025; 87040; 87086; 87088; 87186; 93005; 93010; 93306; 94640; 94660; 96365; 99285; J0696; J1650; J1815; J1940; J1956; J2920; J2930; J3490; J7120; J7620

== ENCOUNTER → 2018-11-23 | Outpatient (CLI) | payer MEDICARE ==
[2018-11-23 13:21] LABS: HEMATOCRIT 25.9 % (36.0-47.0); HEMOGLOBIN 8.5 g/dL (12.0-15.5); MEAN CORPUSCULAR HEMOGLOBIN 27.8 pg (27.0-33.4); MEAN CORPUSCULAR HGB CONC 32.8 g/dL (32.0-36.0); MEAN CORPUSCULAR VOLUME 85 fl (80-97); PLATELET COUNT 330 10^3/uL (150-450); RED BLOOD COUNT 3.05 10^6/uL (3.72-5.28); RED CELL DISTRIBUTION WIDTH 18.8 % (11.5-14.0); WHITE BLOOD COUNT 9.7 10^3/uL (4.0-10.5)
[2018-11-23 13:46] LABS: ALANINE AMINOTRANSFERASE 20 U/L (9-52); ALKALINE PHOSPHATASE 55 U/L (38-126); ASPARTATE AMINO TRANSFERASE 19 U/L (14-36); BILIRUBIN,DIRECT 0.3 mg/dL (0.0-0.4); BILIRUBIN,TOTAL 0.4 mg/dL (0.2-1.3); BLOOD UREA NITROGEN 21 mg/dL (7-20); CALCIUM 8.5 mg/dL (8.4-10.2); CHLORIDE 94 mmol/L (98-107); CHOLESTEROL 147.57 mg/dL (0-200); GLUCOSE 81 mg/dL (75-110); POTASSIUM 3.8 mmol/L (3.6-5.0); SODIUM 138.5 mmol/L (137-145); TOTAL PROTEIN 5.4 g/dL (6.3-8.2); TRIGLYCERIDES 235 mg/dL (<150)
[2018-11-23 13:57] LABS: DIRECT LDL 79 mg/dL (<100)
[2018-11-23 14:11] LABS: CARBON DIOXIDE 42 mmol/L (22-30)
[2018-11-23 15:02] LABS: ANION GAP 3 (5-19)
== END ==
LOC: LAB 13:04
PROVIDERS: ATTEND Physician Assistant
DX: I11.0 Hypertensive heart disease with heart failure (principal); I50.32 Chronic diastolic (congestive) heart failure; R00.2 Palpitations; R06.02 Shortness of breath; D50.9 Iron deficiency anemia, unspecified; Z79.899 Other long term (current) drug therapy; E78.2 Mixed hyperlipidemia
CPT/HCPCS: 36415; 80048; 80061; 80076; 83735; 83880; 84443; 85027

== ENCOUNTER 2018-12-01 04:15 | Inpatient (IN) | payer MEDICARE ==
--- NOTE | 2018-12-01 05:20 | RADIOLOGY REPORT (SQ) ---
EXAM DESCRIPTION: XR CHEST 1 VIEW COMPLETED DATE/TME: 12/01/2018 04:45 CLINICAL HISTORY: 73 years, Female, cough, shortness of breath COMPARISON: 11/10/2018 chest NUMBER OF VIEWS: 1 TECHNIQUE: Portable chest LIMITATIONS: None. FINDINGS: Heart size is grossly stable. Osteopenia. Mixed interstitial and airspace opacities bilaterally likely reflecting pulmonary edema. Underlying pneumonia not excluded. Elevation right hemidiaphragm. No pneumothorax. IMPRESSION: Mixed interstitial and airspace opacities likely reflecting pulmonary edema. Underlying pneumonia not excluded copyright 2010 [employer]- All Rights Reserved
[2018-12-01 06:14] LABS: VENOUS BLOOD BASE EXCESS 18.4 mmol/L; VENOUS BLOOD HCO3 48.4 mmol/L (20-32); VENOUS BLOOD PH 7.3 (7.30-7.42)
[2018-12-01 06:15] LABS: ABSOLUTE BASOPHILS # (AUTO) 0.1 10^3/uL (0.0-0.2); ABSOLUTE EOSINOPHILS # (AUTO) 0.1 10^3/uL (0.0-0.6); ABSOLUTE LYMPHOCYTES (AUTO) 0.8 10^3/uL (0.5-4.7); ABSOLUTE MONOCYTES (AUTO) 0.7 10^3/uL (0.1-1.4); ABSOLUTE NEUT (AUTO) 12.4 10^3/uL (1.7-8.2); BASOPHILS % (AUTO) 0.8 % (0-2); HEMATOCRIT 25.8 % (36.0-47.0); HEMOGLOBIN 8.2 g/dL (12.0-15.5); LYMPHOCYTES % (AUTO) 5.5 % (13-45); MEAN CORPUSCULAR HEMOGLOBIN 27.6 pg (27.0-33.4); MEAN CORPUSCULAR VOLUME 86 fl (80-97); MONOCYTES % (AUTO) 5.1 % (3-13); PLATELET COUNT 283 10^3/uL (150-450); RED BLOOD COUNT 2.98 10^6/uL (3.72-5.28); RED CELL DISTRIBUTION WIDTH 19.1 % (11.5-14.0); SEGMENTED NEUTROPHILS % (AUTO) 87.6 % (42-78); TOTAL CELLS COUNTED % (AUTO) 100 %; WHITE BLOOD COUNT 14.2 10^3/uL (4.0-10.5)
[2018-12-01 06:18] LABS: VENOUS BLOOD PCO2 99.9 mmHg (35-63)
[2018-12-01 06:34] LABS: ALANINE AMINOTRANSFERASE 20 U/L (9-52); ALBUMIN 3.6 g/dL (3.5-5.0); ALKALINE PHOSPHATASE 65 U/L (38-126); ASPARTATE AMINO TRANSFERASE 23 U/L (14-36); BILIRUBIN,DIRECT 0.4 mg/dL (0.0-0.4); BILIRUBIN,TOTAL 0.7 mg/dL (0.2-1.3); BLOOD UREA NITROGEN 25 mg/dL (7-20); CALCIUM 8.6 mg/dL (8.4-10.2); CHLORIDE 90 mmol/L (98-107); GLUCOSE 196 mg/dL (75-110); POTASSIUM 4.2 mmol/L (3.6-5.0); SODIUM 139.9 mmol/L (137-145); TOTAL PROTEIN 6.8 g/dL (6.3-8.2)
--- NOTE | 2018-12-01 06:44 | ER Document Report ---
ED Respiratory Problem - General Chief Complaint: Shortness Of Breath Stated Complaint: RESPIRATORY Time Seen by Provider: 12/01/18 04:28 Primary Care Provider: JEEVAN EARLY MD [Primary Care Provider] - Follow up as needed Mode of Arrival: Medic Information source: Patient Notes: Patient is a 73 year old female patient with multiple comorbidities in cluding CHF, COPD, coronary artery disease status post stent placement, type 2 diabetes mellitus, hypothyroidism, obesity, hypertension, hyperlipidemia and depression brought by EMS with chief complaint of shortness of breath. Patient reports she was wearing her home BiPAP however she states she does not feel it was operating correctly. Patient states she felt fine prior to going to sleep [facility]. Initial O2 saturations for EMS were in the low 80s. On arrival patient is on 6 L nasal cannula with O2 sats of 92%. She denies any recent illness. She does report a chronic cough. TRAVEL OUTSIDE OF THE [place] IN LAST 30 DAYS: No - Related Data Allergies/Adverse Reactions: hydromorphone HCl [From Dilaudid] Allergy (Severe, Verified 12/01/18 04:18) Respiratory arrest codeine [Codeine] Allergy (Intermediate, Verified 12/01/18 04:18) Hallucinations Past Medical History - General Information source: Patient - Social History Smoking Status: Former Smoker Frequency of alcohol use: None Drug Abuse: None Family History: DM, Hyperlipidemia, Hypertension Patient has suicidal ideation: No Patient has homicidal ideation: No - Past Medical History Cardiac Medical History: Reports: Hx Congestive Heart Failure - Diastolic, Hx Coronary Artery Disease, Hx Heart Attack - cardiac stents x 2, Hx Hypercholesterolemia, Hx Hypertension, Hx Heart Murmur - aortic stenosis Denies: Hx DVT, Hx Pulmonary Embolism Pulmonary Medical History: Reports: Hx Asthma, Hx Bronchitis, Hx COPD, Hx Sleep Apnea - Bipap Denies: Hx Pneumonia, Hx Tuberculosis Neurological Medical History: Denies: Hx Cerebrovascular Accident, Hx Seizures Endocrine Medical History: Reports: Hx Diabetes Mellitus Type 2, Hx Hypothyroidism. Denies: Hx Diabetes Mellitus Type 1, Hx Hyperthyroidism Renal/ Medical History: Denies: Hx Peritoneal Dialysis GI Medical History: Reports: Hx Gastroesophageal Reflux Disease, Hx Ulcer. Denies: Hx Cirrhosis, Hx Hepatitis, Hx Ulcerative Colitis Musculoskeletal Medical History: Reports Hx Arthritis - generalized Skin Medical History: Reports Hx Cellulitis Psychiatric Medical History: Reports: Hx Depression Traumatic Medical History: Denies: Hx Traumatic Brain Injury Infectious Medical History: Denies: Hx Hepatitis, Hx HIV Past Surgical History: Reports: Hx Appendectomy, Hx Colostomy - then reversed, Hx Hysterectomy, Hx Neurologic Surgery - spinal fusion, Hx Orthopedic Surgery - carpal tunnel, polio surgery to left leg. Denies: Hx Pacemaker - Immunizations Immunizations up to date: Yes Hx Diphtheria, Pertussis, Tetanus Vaccination: Yes Hx Pneumococcal Vaccination: 08/18/14 Review of Systems - Review of Systems Constitutional: No symptoms reported. denies: Chills, Fever EENT: No symptoms reported Cardiovascular: Orthopnea, Dyspnea Respiratory: Cough, Short of breath Gastrointestinal: No symptoms reported Genitourinary: No symptoms reported Female Genitourinary: No symptoms reported Musculoskeletal: No symptoms reported Skin: No symptoms reported Hematologic/Lymphatic: No symptoms reported Neurological/Psychological: No symptoms reported Physical Exam - Vital signs Vitals: Pulse Ox 90 L 12/01/18 04:28 - Notes Notes: PHYSICAL EXAMINATION: GENERAL: Morbidly obese, short of breath. HEAD: Atraumatic, normocephalic. EYES: Pupils equal round and reactive to light, extraocular movements intact, conjunctiva are normal. ENT: Nares patent, oropharynx clear without exudates. Moist mucous membranes. NECK: Normal range of motion, supple without lymphadenopathy LUNGS: Breath sounds clear to auscultation bilaterally and equal. Increased work of breathing. HEART: Regular rate and rhythm without murmurs. ABDOMEN: Large round, soft, nontender, nondistended abdomen. No guarding, no rebound. No masses appreciated. Female : No CVAT. Musculoskeletal: Normal range of motion, no pitting or edema. No cyanosis. NEUROLOGICAL: Cranial nerves grossly intact. Normal speech. Normal sensory, motor exams PSYCH: Normal mood, normal affect. SKIN: Chronic cellulitis to left lower extremity. Course - Re-evaluation Re-evalutation: Patient placed on BiPAP at time of arrival. Labs pending. Patient denies any other symptoms other than shortness of breath and difficulty breathing. Patient states that she was recently discharged from this hospital, states that she feels like she may have a pneumonia again. 12/01/18 08:48 Labs as recorded. Patient has leukocytosis as well as elevated BNP. Chest x- ray shows possible pneumonia versus vascular congestion. Patient has much improved after being placed on the BiPAP. Hospitalist was consulted for admission. Patient accepted for admission by hospitalist to [facility]. - Vital Signs Vital signs: Temp Pulse Resp BP Pulse Ox 20 124/37 L 96 12/01/18 08:31 12/01/18 08:31 12/01/18 08:31 - Laboratory Result Diagrams: 12/01/18 05:45 12/01/18 05:45 Laboratory results interpreted by me: 12/01/18 12/01/18 12/01/18 05:45 05:45 05:45 WBC 14.2 H RBC 2.98 L Hgb 8.2 L Hct 25.8 L RDW 19.1 H Seg Neutrophils % 87.6 H Lymphocytes % 5.5 L Absolute Neutrophils 12.4 H VBG pCO2 99.9 H* VBG HCO3 48.4 H Chloride 90 L Carbon Dioxide 45 H* BUN 25 H Glucose 196 H NT-Pro-B Natriuret Pep 12/01/18 05:45 WBC RBC Hgb Hct RDW Seg Neutrophils % Lymphocytes % Absolute Neutrophils VBG pCO2 VBG HCO3 Chloride Carbon Dioxide BUN Glucose NT-Pro-B Natriuret Pep 5010 H - Diagnostic Test Radiology reviewed: Image reviewed, Reports reviewed Radiology results interpreted by me: Chest x-ray - EKG Interpretation by Me EKG shows normal: Sinus rhythm, QRS Complexes, ST-T Waves Rate: Normal [place]/QRS: LBBB When compared to previous EKG there are: No significant change Discharge - Discharge Clinical Impression: Respiratory distress, Elevated brain natriuretic peptide (BNP) level, COPD exacerbation, Hypoxia Pneumonia Qualifiers: Pneumonia type: due to unspecified organism Laterality: unspecified laterality Lung location: unspecified part of lung Qualified Code(s): J18.9 - Pneumonia, unspecified organism Condition: Fair Disposition: ADMITTED INPATIENT Admitting Provider: Christie (Hospitalist) Unit Admitted: [facility] Referrals: JEEVAN EARLY MD [Primary Care Provider] - Follow up as needed
[2018-12-01 06:45] LABS: ANION GAP 5 (5-19)
[2018-12-01 06:51] LABS: CARBON DIOXIDE 45 mmol/L (22-30)
[2018-12-01] MEDS ORDERED: CEFTRIAXONE 1 GM/D5W RTU 1 GM/50 ML RTUPB IV ONE (06:59)
[2018-12-01] MEDS ORDERED: LEVOFLOXACIN 750 MG/D5W RTU 750 MG/150 ML RTUPB IV ONE (06:59)
[2018-12-01 08:01] LABS: APPEARANCE,URINE CLEAR; BILIRUBIN,URINE NEGATIVE (NEGATIVE); COLOR,URINE YELLOW; GLUCOSE, URINE NEGATIVE (NEGATIVE); KETONES,URINE NEGATIVE (NEGATIVE); LEUKOCYTE ESTERASE,URINE NEGATIVE (NEGATIVE); NITRITE,URINE NEGATIVE (NEGATIVE); PROTEIN,URINE NEGATIVE (NEGATIVE); UROBILINOGEN,URINE NEGATIVE mg/dL (<2.0)
[2018-12-01] MEDS ORDERED: ACETAMINOPHEN 325 MG TABLET PO PRN (08:47)
[2018-12-01] MEDS ORDERED: FUROSEMIDE INJ/PF 100 MG/10 ML SDV IV ONE ×2 (08:56→11:00)
[2018-12-01] MEDS ORDERED: METHYLPREDNISOLONE INJ 40 MG/1 ML SDV IV ONE ×2 (08:59→11:00)
[2018-12-01] MEDS ORDERED: VANCOMYCIN HCL 0 MG in DEXTROSE 5%-WATER 250 ML IV NR (09:00)
[2018-12-01] MEDS ORDERED: IPRATROPIUM/ALBUTEROL 0.5-2.5 MG/3 ML AMPUL NEB SCH (09:00)
--- NOTE | 2018-12-01 10:17 | EKG REPORT ---
SEVERITY:- ABNORMAL ECG - SINUS RHYTHM ATRIAL PREMATURE COMPLEX RIGHT BUNDLE BRANCH BLOCK LVH WITH SECONDARY REPOLARIZATION ABNORMALITY : Confirmed by: Pebbles Small MD 01-Dec-2018 10:15:32
[2018-12-01] MEDS: TIOTROPIUM BROMIDE DPI 5 CAP/KIT (18 MCG/CAP) IH SCH (10:31)
[2018-12-01] MEDS: GUAIFENESIN 600 MG TABLET.SA PO SCH ×2 (10:35→23:43)
[2018-12-01] MEDS: FAMOTIDINE 20 MG TABLET PO SCH ×2 (10:35→23:43)
[2018-12-01] MEDS: ENOXAPARIN SODIUM INJ 30 MG/0.3 ML DISP.SYRIN SUBCUT SCH (10:39)
[2018-12-01] MEDS: VANCOMYCIN HCL 1,250 MG in DEXTROSE 5%-WATER 250 ML IV SCH ×2 (10:50→23:43)
[2018-12-01] MEDS: IPRATROPIUM/ALBUTEROL 0.5-2.5 MG/3 ML AMPUL NEB SCH ×2 (13:22→20:11)
--- NOTE | 2018-12-01 14:39 | PDOC H&P ---
History of Present Illness Admission Date/PCP: 12/01/18 09:03 JEEVAN EARLY MD Patient complains of: SHORTNESS OF BREATH History of Present Illness: ALBERTO DIAL is a 73 year old female with a PMH of [place] (stent x2), CHF, HTN, HLD, COPD, GERD, DM, hypothyroidism, arthritis and anemia. She presented to [facility] ER this morning for severe shortness of breath. Patient wears her trilogy every night but states she has been increasingly SOB for the last 24-48 hours. Patient states she believes her trilogy (new machine, approximately 1 month old) is not working properly. EMS was called, initial SPO2 was approximately 80%. CPAP was initiated in route, and the patient was continued on BiPAP upon arrival to [facility] ER. Of note, the patient has been admitted to [facility] multiple times this year for COPD/CHF exacerbations. Upon arrival to the ER, CXR demonstrates bilateral pleural effusions, possibly superimposed on R sided PNA. Laboratory studies reveal moderate leukocytosis (WBC 14.2), anemia (Hgb 8.2 HCT 25.8), respiratory acidosis (VBG pH 7.3, CO2 99, HCO3 45), and an elevated proBNP (5010). While it is unclear what triggered the patient's COPD/CHF exacerbation, it is clear the patient requires ongoing BiPAP support and therefore will be admitted to the hospitalist service to [facility]. Past Medical History Cardiac Medical History: Reports: Congestive Heart Failure - Diastolic, Coronary Artery Disease, Myocardial Infarction - cardiac stents x 2, Hyperlipidema, Hypertension, Heart Murmur - aortic stenosis Denies: DVT, Pulmonary Embolism Pulmonary Medical History: Reports: Asthma, Bronchitis, Chronic Obstructive Pulmonary Disease (COPD), Sleep Apnea - Bipap Denies: Pneumonia, Tuberculosis Neurological Medical History: Denies: Seizures Endocrine Medical History: Reports: Diabetes Mellitus Type 2, Hypothyroidism Denies: Diabetes Mellitus Type 1, Hyperthyroidism GI Medical History: Reports: Gastroesophageal Reflux Disease Denies: Cirrhosis, Hepatitis, Ulcerative Colitis Musculoskeltal Medical History: Reports: Arthritis - generalized Psychiatric Medical History: Reports: Depression Traumatic Medical History: Denies: Traumatic Brain Injury Hematology: Reports: Anemia Infectious Medical History: Denies: HIV Past Surgical History Past Surgical History: Reports: Appendectomy, Colostomy - then reversed, Hysterectomy, Orthopedic Surgery - carpal tunnel, polio surgery to left leg Denies: Pacemaker Social History Information Source: Patient Lives with: Family Smoking Status: Former Smoker Frequency of Alcohol Use: None Hx Recreational Drug Use: No Drugs: None Hx Prescription Drug Abuse: No Past Social History Note: LIVES IN A MOBILE HOME WITH MULTIPLE FAMILY MEMBERS. ONE PERSON SMOKES CIGARETTES BUT OUTSIDE OF THE HOME - Advance Directive Resuscitation Status: Do Not Intubate Family History Family History: DM, Hyperlipidemia, Hypertension Parental Family History Reviewed: Yes Children Family History Reviewed: Unknown Sibling(s) Family History Reviewed.: Yes Medication/Allergy Home Medications: Aspirin [Ecotrin 81 mg EC Tablet] 81 mg PO DAILY 12/01/18 Atorvastatin Calcium [Lipitor 40 mg Tablet] 40 mg PO QHS 12/01/18 Budesonide/Formoterol Fumarate [Symbicort Hfa 160-4.5 Mcg Inhaler 6 gm] 2 puff IH Q12 12/01/18 Calcium Citrate/Vitamin D3 [Citracal + D Maximum Caplet] 1 tab PO DAILY 12/01/18 Cetirizine HCl [Zyrtec 10 mg Tablet] 1 tab PO DAILY 12/01/18 Clopidogrel Bisulfate [Plavix 75 mg Tablet] 75 mg PO DAILY 12/01/18 Furosemide [Lasix 40 mg Tablet] 40 mg PO QPM 12/01/18 Furosemide [Lasix 40 mg Tablet] 60 mg PO QAM 12/01/18 Glipizide [Glocotrol 10 Mg Tablet] 10 mg PO QAM 12/01/18 Ipratropium/Albuterol Sulfate [Duoneb 3 ml Ampul] 3 ml NEB [id number] PRN 12/01/18 Liothyronine Sodium [Cytomel] 10 mcg PO DAILY 12/01/18 Magnesium Oxide [Mag-Ox 400 mg Tablet] 400 mg PO DAILY 12/01/18 Metformin HCl [Glucophage 500 mg Tablet] 500 mg PO BIDBS 12/01/18 Metoprolol Succinate [Toprol Xl 25 mg Tab.sr] 12.5 mg PO DAILY 12/01/18 Montelukast Sodium [Singulair 10 mg Tablet] 10 mg PO QHS 12/01/18 Nitroglycerin [Nitrostat 0.4 mg (1/150 Gr) Tabs 25/Bottle] 1 tab SL Q5MP PRN 12/01/18 Potassium Chloride [Klor-Con 10 Meq Capsule ER] 30 meq PO DAILY 12/01/18 Rabeprazole Sodium [Aciphex] 20 mg PO Q6AM 12/01/18 Terbinafine HCl [Lamisil 250 mg Tablet] 250 mg PO DAILY 12/01/18 Allergies/Adverse Reactions: hydromorphone HCl [From Dilaudid] Allergy (Severe, Verified 12/01/18 04:18) Respiratory arrest codeine [Codeine] Allergy (Intermediate, Verified 12/01/18 04:18) Hallucinations Review of Systems Constitutional: ABSENT: fever(s), headache(s) Eyes: ABSENT: visual disturbances Ears: ABSENT: hearing changes Nose, Mouth, and Throat: ABSENT: mouth pain, sore throat Cardiovascular: PRESENT: edema - LLE, orthropnea. ABSENT: chest pain, palpitations Respiratory: PRESENT: dyspnea, sputum - DUBOIS Gastrointestinal: ABSENT: abdominal pain, diarrhea, nausea, vomiting Genitourinary: ABSENT: dysuria Musculoskeletal: PRESENT: muscle weakness - LOWER EXTREMITIES (CHRONIC). ABSENT: deformity Integumentary: ABSENT: diaphoresis Neurological: ABSENT: abnormal gait, abnormal movements, abnormal speech, focal weakness, syncope Psychiatric: ABSENT: hallucinations Hematologic/Lymphatic: ABSENT: lymphadenopathy Allergic/Immunologic: PRESENT: seasonal rhinorrhea - 'MY NOSE IS ALWAYS RUNNING' Physical Exam Vital Signs: Temp Pulse Resp BP Pulse Ox 97.3 F 64 33 H 134/59 H 94 12/01/18 11:43 12/01/18 13:22 12/01/18 13:22 12/01/18 11:43 12/01/18 13:22 Intake & Output 11/30/18 12/01/18 12/02/18 06:59 06:59 06:59 Intake Total 300 Output Total 200 Balance 100 Weight 123 kg General appearance: PRESENT: morbidly obese Head exam: PRESENT: atraumatic Eye exam: PRESENT: conjunctiva pink, PERRLA Mouth exam: PRESENT: tongue midline Teeth exam: PRESENT: poor dentation Neck exam: PRESENT: full ROM Respiratory exam: PRESENT: decreased breath sounds - Bilateral lower lobes, symmetrical, unlabored. ABSENT: clear to auscultation joel Cardiovascular exam: PRESENT: RRR, +S1, +S2 Pulses: PRESENT: normal radial pulses, +1 pedal pulses bilateral. ABSENT: normal dorsalis pedis pul Vascular exam: PRESENT: pallor GI/Abdominal exam: PRESENT: soft. ABSENT: distended, tenderness Rectal exam: PRESENT: deferred Extremities exam: ABSENT: calf tenderness, full ROM Musculoskeletal exam: ABSENT: ambulatory, full ROM Neurological exam: PRESENT: alert, awake, oriented to person, oriented to place, oriented to time, oriented to situation Psychiatric exam: PRESENT: appropriate affect Skin exam: PRESENT: pallor, other - ERYTHEMA AND EDEMA TO LLE, MUCH MORE THAN THE RLE. PATIENT IS NORMALLY IMMOBILE, REQUIRES USE OF A WHEELCHAIR Results Laboratory Results: 12/01/18 05:45 12/01/18 05:45 12/01/18 12/01/18 12/01/18 05:45 05:45 05:45 WBC 14.2 H RBC 2.98 L Hgb 8.2 L Hct 25.8 L MCV 86 MCH 27.6 MCHC 32.0 RDW 19.1 H Plt Count 283 Seg Neutrophils % 87.6 H Lymphocytes % 5.5 L Monocytes % 5.1 Eosinophils % 1.0 Basophils % 0.8 Absolute Neutrophils 12.4 H Absolute Lymphocytes 0.8 Absolute Monocytes 0.7 Absolute Eosinophils 0.1 Absolute Basophils 0.1 VBG pH 7.30 VBG pCO2 99.9 H* VBG HCO3 48.4 H VBG Base Excess 18.4 Sodium 139.9 Potassium 4.2 Chloride 90 L Carbon Dioxide 45 H* Anion Gap 5 BUN 25 H Creatinine 0.55 Est GFR ( Amer) > 60 Est GFR (Non-Af Amer) > 60 Glucose 196 H Calcium 8.6 Total Bilirubin 0.7 AST 23 ALT 20 Alkaline Phosphatase 65 Total Protein 6.8 Albumin 3.6 Urine Color Urine Appearance Urine pH Ur Specific [place] Urine Protein Urine Glucose (UA) Urine Ketones Urine Blood Urine Nitrite Ur Leukocyte Esterase Urine WBC (Auto) Urine RBC (Auto) 12/01/18 07:27 WBC RBC Hgb Hct MCV MCH MCHC RDW Plt Count Seg Neutrophils % Lymphocytes % Monocytes % Eosinophils % Basophils % Absolute Neutrophils Absolute Lymphocytes Absolute Monocytes Absolute Eosinophils Absolute Basophils VBG pH VBG pCO2 VBG HCO3 VBG Base Excess Sodium Potassium Chloride Carbon Dioxide Anion Gap BUN Creatinine Est GFR ( Amer) Est GFR (Non-Af Amer) Glucose Calcium Total Bilirubin AST ALT Alkaline Phosphatase Total Protein Albumin Urine Color YELLOW Urine Appearance CLEAR Urine pH 5.0 Ur Specific [place] 1.010 Urine Protein NEGATIVE Urine Glucose (UA) NEGATIVE Urine Ketones NEGATIVE Urine Blood NEGATIVE Urine Nitrite NEGATIVE Ur Leukocyte Esterase NEGATIVE Urine WBC (Auto) 1 Urine RBC (Auto) 0 12/01/18 05:45 NT-Pro-B Natriuret Pep 5010 H Impressions: Chest X-Ray 12/01/18 04:45 IMPRESSION: Mixed interstitial and airspace opacities likely reflecting pulmonary edema. Underlying pneumonia not excluded copyright 2010 [employer]- All Rights Reserved Status: Imported from PACS Assessment and Plan - Diagnosis (1) Acute and chronic respiratory failure with hypercapnia Is this a current diagnosis for this admission?: Yes Plan: Secondary to COPD and/or CHF exacerbation b/l pleural effusions on CXR and possible underlying PNA SPO2 upon EMS arrival ~ 80% Initial VBG shows respiratory acidosis, plan for ABG in AM ProBNP elevated to 5010, range within last calendar year is 1770-19,800 BIPAP for SPO2> 88% (current settings IPAP 15 EPAP 7 FiO2 40%) Sputum cultures ordered Cefepime and vancomycin for healthcare associated pneumonia 60mg Lasix IV now, continue home dose of 60mg PO lasix QAM & 40mg PO lasix QPM Scheduled nebulizer treatments, IV steroids and BID Mucinex for COPD exacerbation Will resume long acting inhalers when medically stabilized Patient does not wish to be intubated should her respiratory status decompensate (2) COPD exacerbation Is this a current diagnosis for this admission?: Yes Plan: plan as above (3) Diabetes mellitus type 2 in obese Is this a current diagnosis for this admission?: Yes Plan: Accu-Cheks AC at bedtime Humalog sliding scale insulin Hemoglobin A1c in a.m. Hold home dose of metformin and glipizide for now (4) DNI (do not intubate) Is this a current diagnosis for this admission?: Yes Plan: Patient verbalized that she does not want to be resuscitated (no CPR no intubation) (5) DNR (do not resuscitate) Is this a current diagnosis for this admission?: Yes Plan: Patient verbalized that she does not want to be resuscitated (no CPR no intubati on) - Time Time Spent with patient: 25-34 minutes Medications reviewed and adjusted accordingly: Yes Anticipated discharge: Home with Homehealth Within: Other - when medically stabilized - Inpatient Certification Based on my medical assessment, after consideration of the patient's comorbidities, presenting symptoms, or acuity I expect that the services needed warrant INPATIENT care.: Yes I certify that my determination is in accordance with my understanding of Medicare's requirements for reasonable and necessary INPATIENT services [42 CFR 412.3e].: Yes Medical Necessity: Need Close Monitoring Due to Risk of Patient Decompensation, Need for Nebulizer Therapy and Monitoring of Response, Risk of Complication if Not Cared For in Hospital - Plan Summary Plan Summary: Admit to IMCU, continue BIPAP. Repeat ABG & CXR in AM.
[2018-12-01] MEDS ORDERED: FUROSEMIDE 40 MG TABLET ONE (16:42)
[2018-12-01] MEDS: LORAZEPAM INJ 2 MG/1 ML VIAL IV PRN (16:47)
[2018-12-01] MEDS: FUROSEMIDE 40 MG TABLET PO SCH (17:12)
[2018-12-01] MEDS ORDERED: CEFEPIME 2 GM/D5W RTU 2 GM/50 ML RTUPB IV SCH (22:00)
[2018-12-01] MEDS: MONTELUKAST SODIUM 10 MG TABLET PO SCH (23:43)
[2018-12-01] MEDS: ATORVASTATIN CALCIUM 40 MG TABLET PO SCH (23:43)
[2018-12-01] MEDS ORDERED: CEFEPIME 2 GM/D5W RTU 2 GM/50 ML RTUPB IV ONE (23:58)
[2018-12-02] MEDS: LORAZEPAM INJ 2 MG/1 ML VIAL IV PRN ×2 (00:15→22:50)
[2018-12-02] MEDS: IPRATROPIUM/ALBUTEROL 0.5-2.5 MG/3 ML AMPUL NEB SCH ×4 (01:43→19:58)
[2018-12-02] MEDS ORDERED: (PENDING PHARMACY ID) (Rabeprazole Sodium [Aciphex] 20 MG) PO SCH (06:00)
[2018-12-02] MEDS: PANTOPRAZOLE SODIUM 40 MG TABLET.DR PO SCH (06:05)
[2018-12-02 07:36] LABS: ALANINE AMINOTRANSFERASE 25 U/L (9-52); ALBUMIN 3.3 g/dL (3.5-5.0); ALKALINE PHOSPHATASE 60 U/L (38-126); ASPARTATE AMINO TRANSFERASE 16 U/L (14-36); BILIRUBIN,DIRECT 0.3 mg/dL (0.0-0.4); BILIRUBIN,TOTAL 0.4 mg/dL (0.2-1.3); BLOOD UREA NITROGEN 21 mg/dL (7-20); CALCIUM 8.1 mg/dL (8.4-10.2); GLUCOSE 145 mg/dL (75-110); TOTAL PROTEIN 6.4 g/dL (6.3-8.2)
[2018-12-02 07:40] LABS: ABSOLUTE MONOCYTES (AUTO) 0.4 10^3/uL (0.1-1.4); ABSOLUTE NEUT (AUTO) 4.3 10^3/uL (1.7-8.2); BASOPHILS % (AUTO) 0.6 % (0-2); EOSINOPHILS % (AUTO) 0.6 % (0-6); HEMATOCRIT 24.1 % (36.0-47.0); LYMPHOCYTES % (AUTO) 16.7 % (13-45); MEAN CORPUSCULAR HEMOGLOBIN 28.2 pg (27.0-33.4); MEAN CORPUSCULAR HGB CONC 33.2 g/dL (32.0-36.0); MEAN CORPUSCULAR VOLUME 85 fl (80-97); MONOCYTES % (AUTO) 6.7 % (3-13); PLATELET COUNT 245 10^3/uL (150-450); RED BLOOD COUNT 2.85 10^6/uL (3.72-5.28); RED CELL DISTRIBUTION WIDTH 19.2 % (11.5-14.0); SEGMENTED NEUTROPHILS % (AUTO) 75.4 % (42-78); TOTAL CELLS COUNTED % (AUTO) 100 %; WHITE BLOOD COUNT 5.8 10^3/uL (4.0-10.5)
--- NOTE | 2018-12-02 08:26 | RADIOLOGY REPORT (SQ) ---
EXAM DESCRIPTION: CHEST SINGLE VIEW COMPLETED DATE/TIME: 12/02/2018 8:05 am REASON FOR STUDY: resp failure COMPARISON: 12/01/2018 EXAM PARAMETERS: NUMBER OF VIEWS: One view. TECHNIQUE: Single frontal radiographic view of the chest acquired. RADIATION DOSE: NA LIMITATIONS: None. FINDINGS: LUNGS AND PLEURA: Emphysematous change. There is been improved aeration of the bilateral basilar predominant opacities. Mild residual left retrocardiac opacity. No pneumothorax. No large effusion. . MEDIASTINUM AND HILAR STRUCTURES: Stable. HEART AND VASCULAR STRUCTURES: Enlarged, stable. Aortic atherosclerosis. BONES: Osteopenia. Levoconvex thoracic curvature. No acute bony findings. HARDWARE: None in the chest. OTHER: No other significant finding. IMPRESSION: Improved aeration bilaterally, likely resolving pulmonary edema. No evidence of new car diopulmonary process. TECHNICAL DOCUMENTATION: JOB ID: [id number] [employer]- All Rights Reserved Reading location - IP/workstation name: [email or web address]
[2018-12-02 08:28] LABS: CHLORIDE 90 mmol/L (98-107); POTASSIUM 3.9 mmol/L (3.6-5.0); SODIUM 141.9 mmol/L (137-145)
[2018-12-02] MEDS: FUROSEMIDE 40 MG TABLET PO SCH ×2 (09:28→18:02)
[2018-12-02] MEDS: CEFEPIME HCL 2 GM in DEXTROSE 5%-WATER 50 ML IV SCH ×2 (09:29→22:50)
[2018-12-02] MEDS: LIOTHYRONINE SODIUM 5 MCG TABLET PO SCH (09:29)
[2018-12-02] MEDS: FAMOTIDINE 20 MG TABLET PO SCH ×2 (09:30→22:50)
[2018-12-02] MEDS: TIOTROPIUM BROMIDE DPI 5 CAP/KIT (18 MCG/CAP) IH SCH (09:30)
[2018-12-02] MEDS: METOPROLOL SUCCINATE 25 MG TAB.SR.24H PO SCH (09:30)
[2018-12-02] MEDS: MAGNESIUM OXIDE 400 MG TABLET PO SCH (09:30)
[2018-12-02] MEDS: CETIRIZINE 10 MG TABLET PO SCH (09:31)
[2018-12-02] MEDS: ENOXAPARIN SODIUM INJ 30 MG/0.3 ML DISP.SYRIN SUBCUT SCH (09:31)
[2018-12-02] MEDS: CLOPIDOGREL BISULFATE 75 MG TABLET PO SCH (09:31)
[2018-12-02] MEDS: POTASSIUM CHLORIDE 10 MEQ CAPSULE.ER PO SCH (09:31)
[2018-12-02] MEDS: CALCIUM CARBONATE 250 MG/VITAMIN D3 125 UNIT TABLET PO SCH (09:31)
[2018-12-02] MEDS: ASPIRIN 81 MG TABLET, ENT COATED PO SCH (09:31)
[2018-12-02] MEDS: GUAIFENESIN 600 MG TABLET.SA PO SCH ×2 (09:31→22:50)
[2018-12-02 09:35] LABS: ARTERIAL BLOOD BASE EXCESS 20.1 mmol/L; ARTERIAL BLOOD FIO2 35%; ARTERIAL BLOOD H2CO3 2.82 mmol/L (1.05-1.35); ARTERIAL BLOOD HCO3 48.7 mmol/L (20-24); ARTERIAL BLOOD O2 SATURATION 73.8 % (94-98); ARTERIAL BLOOD PH 7.33 (7.35-7.45); ARTERIAL BLOOD PO2 44.7 mmHg (80-100); ARTERIAL BLOOD TOTAL CO2 51.6 mmol/L (21-25)
[2018-12-02 09:57] LABS: ARTERIAL BLOOD PCO2 93.6 mmHg (35-45)
[2018-12-02] MEDS ORDERED: (PENDING PHARMACY ID) (Liothyronine Sodium [Cytomel] 10 MCG) PO SCH (10:00)
[2018-12-02] MEDS ORDERED: TERBINAFINE HCL 250 MG TABLET PO SCH (10:00)
[2018-12-02] MEDS ORDERED: LIOTHYRONINE SODIUM 5 MCG TABLET PO SCH (10:00)
[2018-12-02] MEDS ORDERED: VITAMIN D3 PO SCH (10:00)
[2018-12-02] MEDS ORDERED: CALCIUM CITRATE PO SCH (10:00)
[2018-12-02] MEDS: VANCOMYCIN HCL 1,250 MG in DEXTROSE 5%-WATER 250 ML IV SCH ×2 (10:40→22:50)
[2018-12-02] MEDS ORDERED: MAG HYDROX/AL HYDROX/SIMETH SUSP 30 ML UDCUP PO PRN (11:40)
[2018-12-02] MEDS ORDERED: GLUCAGON,HUMAN RECOMB 1 MG INJ IM PRN (16:30)
[2018-12-02] MEDS ORDERED: DEXTROSE 40% GEL 15 GM TUBE X 2 PO PRN (16:30)
[2018-12-02] MEDS ORDERED: DEXTROSE 50%-WATER SYRINGE 25 GM/50 ML DOSE IV PRN (16:30)
[2018-12-02] MEDS ORDERED: DEXTROSE 40% GEL 15 GM TUBE PO PRN (16:30)
[2018-12-02] MEDS ORDERED: DEXTROSE 50%-WATER SYRINGE 12.5 GM/25 ML DOSE IV PRN (16:30)
[2018-12-02] MEDS: INSULIN LISPRO 100 UNIT/ML 3 ML VIAL SUBCUT SCH (22:49)
[2018-12-02 22:50] LABS: VANCOMYCIN,TROUGH 19.2 ug/mL (5.0-20.0)
[2018-12-02] MEDS: ATORVASTATIN CALCIUM 40 MG TABLET PO SCH (22:50)
[2018-12-02] MEDS: MONTELUKAST SODIUM 10 MG TABLET PO SCH (22:50)
[2018-12-03] MEDS: IPRATROPIUM/ALBUTEROL 0.5-2.5 MG/3 ML AMPUL NEB SCH ×4 (02:06→21:56)
[2018-12-03] MEDS: PANTOPRAZOLE SODIUM 40 MG TABLET.DR PO SCH (06:32)
[2018-12-03 08:31] LABS: CARBON DIOXIDE 47 mmol/L (22-30)
[2018-12-03 08:32] LABS: ANION GAP 5 (5-19)
[2018-12-03] MEDS: INSULIN LISPRO 100 UNIT/ML 3 ML VIAL SUBCUT SCH ×4 (09:00→22:09)
[2018-12-03] MEDS: FUROSEMIDE 40 MG TABLET PO SCH ×2 (10:54→17:08)
[2018-12-03] MEDS: GUAIFENESIN 600 MG TABLET.SA PO SCH ×2 (10:54→22:09)
[2018-12-03] MEDS: FAMOTIDINE 20 MG TABLET PO SCH ×2 (10:54→22:09)
[2018-12-03] MEDS: METOPROLOL SUCCINATE 25 MG TAB.SR.24H PO SCH (10:54)
[2018-12-03] MEDS: CALCIUM CARBONATE 250 MG/VITAMIN D3 125 UNIT TABLET PO SCH (10:54)
[2018-12-03] MEDS: POTASSIUM CHLORIDE 10 MEQ CAPSULE.ER PO SCH (10:54)
[2018-12-03] MEDS: LIOTHYRONINE SODIUM 5 MCG TABLET PO SCH (10:55)
[2018-12-03] MEDS: CETIRIZINE 10 MG TABLET PO SCH (10:55)
[2018-12-03] MEDS: CEFEPIME HCL 2 GM in DEXTROSE 5%-WATER 50 ML IV SCH ×2 (10:55→22:09)
[2018-12-03] MEDS: MAGNESIUM OXIDE 400 MG TABLET PO SCH (10:55)
[2018-12-03] MEDS: ENOXAPARIN SODIUM INJ 30 MG/0.3 ML DISP.SYRIN SUBCUT SCH (10:55)
[2018-12-03] MEDS: CLOPIDOGREL BISULFATE 75 MG TABLET PO SCH (10:55)
[2018-12-03] MEDS: ASPIRIN 81 MG TABLET, ENT COATED PO SCH (10:55)
[2018-12-03] MEDS: TIOTROPIUM BROMIDE DPI 5 CAP/KIT (18 MCG/CAP) IH SCH (10:56)
[2018-12-03] MEDS: VANCOMYCIN HCL 1,000 MG in DEXTROSE 5%-WATER 250 ML IV SCH ×2 (10:56→22:56)
[2018-12-03 11:31] LABS: ARTERIAL BLOOD BASE EXCESS 17.5 mmol/L; ARTERIAL BLOOD H2CO3 2.12 mmol/L (1.05-1.35); ARTERIAL BLOOD HCO3 44.6 mmol/L (20-24); ARTERIAL BLOOD O2 SATURATION 87.5 % (94-98); ARTERIAL BLOOD PH 7.42 (7.35-7.45); ARTERIAL BLOOD PO2 54.7 mmHg (80-100); ARTERIAL BLOOD TOTAL CO2 46.7 mmol/L (21-25)
[2018-12-03 11:41] LABS: ARTERIAL BLOOD FIO2 3L; ARTERIAL BLOOD PCO2 70.3 mmHg (35-45)
--- NOTE | 2018-12-03 19:15 | PDOC PROGRESS REPORT ---
Subjective Progress Note for:: 12/03/18 Subjective:: ALBERTO DIAL is a 73 year old female with a PMH of [place] (stent x2), CHF, HTN, HLD, COPD, GERD, DM, hypothyroidism, arthritis and anemia. She presented to [facility] ER this morning for severe shortness of breath. Patient wears her trilogy every night but states she has been increasingly SOB for the last 24-48 hours. Patient states she believes her trilogy (new machine, approximately 1 month old) is not working properly. EMS was called, initial SPO2 was approximately 80%. CPAP was initiated in route, and the patient was continued on BiPAP upon arrival to [facility] ER. Of note, the patient has been admitted to [facility] multiple times this year for COPD/CHF exacerbations. Upon arrival to the ER, CXR demonstrates bilateral pleural effusions, possibly superimposed on R sided PNA. Laboratory studies reveal moderate leukocytosis (WBC 14.2), anemia (Hgb 8.2 HCT 25.8), respiratory acidosis (VBG pH 7.3, CO2 99, HCO3 45), and an elevated proBNP (5010). While it is unclear what triggered the patient's COPD/CHF exacerbation, it is clear the patient requires ongoing BiPAP support and therefore will be admitted to the hospitalist service to [facility]. 12/03/2017. No acute events overnight. Reason For Visit: COPD EXACERBATION Physical Exam Vital Signs: Temp Pulse Resp BP Pulse Ox 97.6 F 55 L 19 147/54 H 95 12/03/18 11:32 12/03/18 13:58 12/03/18 16:17 12/03/18 11:32 12/03/18 16:17 Intake & Output 12/02/18 12/03/18 12/04/18 06:59 06:59 06:59 Intake Total 1265 950 200 Output Total 1675 2800 400 Balance -410 -1850 -200 Weight 119.6 kg 119.9 kg General appearance: PRESENT: no acute distress, morbidly obese Respiratory exam: PRESENT: clear to auscultation joel, decreased breath sounds, prolonged expiratory phas. ABSENT: rales, rhonchi, wheezes Cardiovascular exam: PRESENT: RRR. ABSENT: diastolic murmur, rubs, systolic murmur GI/Abdominal exam: PRESENT: normal bowel sounds, soft. ABSENT: distended, guarding, mass, organolmegaly, rebound, tenderness Extremities exam: PRESENT: full ROM. ABSENT: calf tenderness, clubbing, pedal edema Neurological exam: PRESENT: alert, awake, oriented to person, oriented to place, oriented to time, oriented to situation, CN II-XII grossly intact. ABSENT: motor sensory deficit Results Laboratory Results: 12/02/18 06:42 12/02/18 21:45 12/02/18 12/02/18 12/03/18 06:42 21:45 11:15 Carbonic Acid 2.12 H HCO3/H2CO3 Ratio 21:1 ABG pH 7.42 ABG pCO2 70.3 H* ABG pO2 54.7 L ABG HCO3 44.6 H ABG O2 Saturation 87.5 L ABG Base Excess 17.5 FiO2 3L Carbon Dioxide 47 H* Anion Gap 5 Creatinine 0.76 Est GFR ( Amer) > 60 Est GFR (Non-Af Amer) > 60 12/01/18 12/02/18 05:45 06:42 NT-Pro-B Natriuret Pep 5010 H 6260 H Impressions: Chest X-Ray 12/02/18 06:00 IMPRESSION: Improved aeration bilaterally, likely resolving pulmonary edema. No evidence of new cardiopulmonary process. Assessment and Plan - Diagnosis (1) Acute and chronic respiratory failure with hypercapnia Is this a current diagnosis for this admission?: Yes Plan: Secondary to COPD and/or CHF exacerbation b/l pleural effusions on CXR and possible underlying PNA SPO2 upon EMS arrival ~ 80% Initial VBG shows respiratory acidosis, plan for ABG in AM ProBNP elevated to 5010, range within last calendar year is 1770-19,800 BIPAP for SPO2> 88% (current settings IPAP 15 EPAP 7 FiO2 40%) Sputum cultures ordered Cefepime and vancomycin for healthcare associated pneumonia 60mg Lasix IV now, continue home dose of 60mg PO lasix QAM & 40mg PO lasix QPM Scheduled nebulizer treatments, IV steroids and BID Mucinex for COPD exacerbation Will resume long acting inhalers when medically stabilized Patient does not wish to be intubated should her respiratory status decompensate (2) COPD exacerbation Is this a current diagnosis for this admission?: Yes (3) Diabetes mellitus type 2 in obese Is this a current diagnosis for this admission?: Yes Plan: Accu-Cheks AC at bedtime Humalog sliding scale insulin Hemoglobin A1c in a.m. Hold home dose of metformin and glipizide for now (4) DNI (do not intubate) Is this a current diagnosis for this admission?: Yes Plan: Patient verbalized that she does not want to be resuscitated (no CPR no intubation) (5) DNR (do not resuscitate) Is this a current diagnosis for this admission?: Yes Plan: Patient verbalized that she does not want to be resuscitated (no CPR no intubation)
[2018-12-03] MEDS: MONTELUKAST SODIUM 10 MG TABLET PO SCH (22:09)
[2018-12-03] MEDS: ATORVASTATIN CALCIUM 40 MG TABLET PO SCH (22:09)
[2018-12-04] MEDS: LORAZEPAM INJ 2 MG/1 ML VIAL IV PRN ×2 (01:20→10:01)
[2018-12-04] MEDS: IPRATROPIUM/ALBUTEROL 0.5-2.5 MG/3 ML AMPUL NEB SCH ×4 (01:47→20:44)
[2018-12-04] MEDS: PANTOPRAZOLE SODIUM 40 MG TABLET.DR PO SCH (06:06)
[2018-12-04 06:09] LABS: ARTERIAL BLOOD BASE EXCESS 21.1 mmol/L; ARTERIAL BLOOD H2CO3 2.14 mmol/L (1.05-1.35); ARTERIAL BLOOD HCO3 47.5 mmol/L (20-24); ARTERIAL BLOOD O2 SATURATION 95.8 % (94-98); ARTERIAL BLOOD PH 7.44 (7.35-7.45); ARTERIAL BLOOD TOTAL CO2 49.7 mmol/L (21-25)
[2018-12-04 06:12] LABS: ARTERIAL BLOOD FIO2 35%; ARTERIAL BLOOD PCO2 71.2 mmHg (35-45)
[2018-12-04 06:45] LABS: ABSOLUTE BASOPHILS # (AUTO) 0.1 10^3/uL (0.0-0.2); ABSOLUTE EOSINOPHILS # (AUTO) 0.3 10^3/uL (0.0-0.6); ABSOLUTE LYMPHOCYTES (AUTO) 1.1 10^3/uL (0.5-4.7); ABSOLUTE MONOCYTES (AUTO) 0.4 10^3/uL (0.1-1.4); ABSOLUTE NEUT (AUTO) 3.5 10^3/uL (1.7-8.2); EOSINOPHILS % (AUTO) 6.3 % (0-6); HEMATOCRIT 24.4 % (36.0-47.0); LYMPHOCYTES % (AUTO) 20.7 % (13-45); MEAN CORPUSCULAR HEMOGLOBIN 27.4 pg (27.0-33.4); MEAN CORPUSCULAR HGB CONC 32.2 g/dL (32.0-36.0); MEAN CORPUSCULAR VOLUME 85 fl (80-97); PLATELET COUNT 236 10^3/uL (150-450); RED BLOOD COUNT 2.87 10^6/uL (3.72-5.28); TOTAL CELLS COUNTED % (AUTO) 100 %; WHITE BLOOD COUNT 5.4 10^3/uL (4.0-10.5)
[2018-12-04 07:02] LABS: HEMOGLOBIN 7.9 g/dL (12.0-15.5)
[2018-12-04 07:04] LABS: ALANINE AMINOTRANSFERASE 22 U/L (9-52); ALBUMIN 2.9 g/dL (3.5-5.0); ALKALINE PHOSPHATASE 56 U/L (38-126); ASPARTATE AMINO TRANSFERASE 10 U/L (14-36); BILIRUBIN,DIRECT 0.3 mg/dL (0.0-0.4); BILIRUBIN,TOTAL 0.6 mg/dL (0.2-1.3); BLOOD UREA NITROGEN 22 mg/dL (7-20); CALCIUM 8.8 mg/dL (8.4-10.2); CHLORIDE 90 mmol/L (98-107); GLUCOSE 122 mg/dL (75-110); POTASSIUM 3.5 mmol/L (3.6-5.0); SODIUM 137.5 mmol/L (137-145); TOTAL PROTEIN 5.4 g/dL (6.3-8.2)
[2018-12-04 07:13] LABS: ANION GAP 6 (5-19)
[2018-12-04 07:14] LABS: CARBON DIOXIDE 42 mmol/L (22-30)
[2018-12-04] MEDS: INSULIN LISPRO 100 UNIT/ML 3 ML VIAL SUBCUT SCH ×4 (08:25→22:08)
[2018-12-04] MEDS: FUROSEMIDE 40 MG TABLET PO SCH ×2 (08:28→17:32)
[2018-12-04] MEDS: FAMOTIDINE 20 MG TABLET PO SCH ×2 (09:59→22:07)
[2018-12-04] MEDS: MAGNESIUM OXIDE 400 MG TABLET PO SCH (09:59)
[2018-12-04] MEDS: GUAIFENESIN 600 MG TABLET.SA PO SCH ×2 (09:59→22:01)
[2018-12-04] MEDS: ASPIRIN 81 MG TABLET, ENT COATED PO SCH (09:59)
[2018-12-04] MEDS: LIOTHYRONINE SODIUM 5 MCG TABLET PO SCH (09:59)
[2018-12-04] MEDS: POTASSIUM CHLORIDE 10 MEQ CAPSULE.ER PO SCH (09:59)
[2018-12-04] MEDS: METOPROLOL SUCCINATE 25 MG TAB.SR.24H PO SCH (10:00)
[2018-12-04] MEDS: CLOPIDOGREL BISULFATE 75 MG TABLET PO SCH (10:00)
[2018-12-04] MEDS: TIOTROPIUM BROMIDE DPI 5 CAP/KIT (18 MCG/CAP) IH SCH (10:00)
[2018-12-04] MEDS: CETIRIZINE 10 MG TABLET PO SCH (10:00)
[2018-12-04] MEDS: CALCIUM CARBONATE 250 MG/VITAMIN D3 125 UNIT TABLET PO SCH (10:00)
[2018-12-04] MEDS: CEFEPIME HCL 2 GM in DEXTROSE 5%-WATER 50 ML IV SCH ×2 (10:01→22:01)
[2018-12-04] MEDS: ENOXAPARIN SODIUM INJ 30 MG/0.3 ML DISP.SYRIN SUBCUT SCH (10:01)
[2018-12-04] MEDS: VANCOMYCIN HCL 1,000 MG in DEXTROSE 5%-WATER 250 ML IV SCH ×2 (11:29→22:01)
--- NOTE | 2018-12-04 17:15 | PDOC PROGRESS REPORT ---
Subjective Progress Note for:: 12/04/18 Subjective:: ALBERTO DIAL is a 73 year old female with a PMH of [place] (stent x2), CHF, HTN, HLD, COPD, GERD, DM, hypothyroidism, arthritis and anemia. She presented to [facility] this morning for severe shortness of breath. Patient wears her trilogy every night but states she has been increasingly SOB for the last 24-48 hours. Patient states she believes her trilogy (new machine, approximately 1 month old) is not working properly. EMS was called, initial SPO2 was approximately 80%. CPAP was initiated in route, and the patient was continued on BiPAP upon arrival to [facility]. Of note, the patient has been admitted to [facility] multiple times this year for COPD/CHF exacerbations. Upon arrival to the ER, CXR demonstrates bilateral pleural effusions, possibly superimposed on R sided PNA. Laboratory studies reveal moderate leukocytosis (WBC 14.2), anemia (Hgb 8.2 HCT 25.8), respiratory acidosis (VBG pH 7.3, CO2 99, HCO3 45), and an elevated proBNP (5010). While it is unclear what triggered the patient's COPD/CHF exacerbation, it is clear the patient requires ongoing BiPAP support and therefore will be admitted to the hospitalist service to [facility]. 12/04/2017. No acute events overnight. Reason For Visit: COPD EXACERBATION Physical Exam Vital Signs: Temp Pulse Resp BP Pulse Ox 97.8 F 56 L 20 134/46 H 99 12/04/18 16:07 12/04/18 17:00 12/04/18 17:00 12/04/18 16:07 12/04/18 17:00 Intake & Output 12/03/18 12/04/18 12/05/18 06:59 06:59 06:59 Intake Total 950 1580 773 Output Total 2800 3725 525 Balance -1850 -2145 248 Weight 119.9 kg 117.6 kg General appearance: PRESENT: mild distress Head exam: PRESENT: atraumatic, normocephalic Respiratory exam: PRESENT: decreased breath sounds, prolonged expiratory phas, wheezes. ABSENT: rales, rhonchi Cardiovascular exam: PRESENT: RRR. ABSENT: diastolic murmur, rubs, systolic murmur Extremities exam: PRESENT: full ROM. ABSENT: calf tenderness, clubbing, pedal edema Neurological exam: PRESENT: alert, altered, awake, oriented to person, oriented to place, oriented to time, CN II-XII grossly intact Results Laboratory Results: 12/04/18 06:08 12/04/18 06:08 12/04/18 12/04/18 12/04/18 05:55 06:08 06:08 WBC 5.4 RBC 2.87 L Hgb 7.9 L Hct 24.4 L MCV 85 MCH 27.4 MCHC 32.2 RDW 19.0 H Plt Count 236 Seg Neutrophils % 65.0 Lymphocytes % 20.7 Monocytes % 7.0 Eosinophils % 6.3 H Basophils % 1.0 Absolute Neutrophils 3.5 Absolute Lymphocytes 1.1 Absolute Monocytes 0.4 Absolute Eosinophils 0.3 Absolute Basophils 0.1 Carbonic Acid 2.14 H HCO3/H2CO3 Ratio 22:1 ABG pH 7.44 ABG pCO2 71.2 H* ABG pO2 81.0 ABG HCO3 47.5 H ABG O2 Saturation 95.8 ABG Base Excess 21.1 FiO2 35% Sodium 137.5 Potassium 3.5 L Chloride 90 L Carbon Dioxide 42 H* Anion Gap 6 BUN 22 H Creatinine 0.66 Est GFR ( Amer) > 60 Est GFR (Non-Af Amer) > 60 Glucose 122 H Calcium 8.8 Magnesium 1.8 Total Bilirubin 0.6 AST 10 L ALT 22 Alkaline Phosphatase 56 Total Protein 5.4 L Albumin 2.9 L 12/01/18 12/02/18 05:45 06:42 NT-Pro-B Natriuret Pep 5010 H 6260 H Impressions: Chest X-Ray 12/02/18 06:00 IMPRESSION: Improved aeration bilaterally, likely resolving pulmonary edema. No evidence of new cardiopulmonary process. Assessment and Plan - Diagnosis (1) Acute and chronic respiratory failure with hypercapnia Is this a current diagnosis for this admission?: Yes Plan: Secondary to COPD/CHF exacerbation b/l pleural effusions on CXR and possible underlying PNA SPO2 upon EMS arrival ~ 80% Initial VBG shows respiratory acidosis, plan for ABG in AM ProBNP elevated to 5010, range within last calendar year is 1770-19,800 BIPAP for SPO2> 99 % Sputum cultures no growth. Day 3/5 Cefepime and vancomycin for healthcare associated pneumonia Scheduled nebulizer treatments, IV steroids and BID Mucinex. Pt is DNR (2) COPD exacerbation Is this a current diagnosis for this admission?: Yes Plan: as per problem #1 (3) Diabetes mellitus type 2 in obese Is this a current diagnosis for this admission?: Yes Plan: Accu-Cheks, Dieabtic diet, sliding scale insulin, long-acting insulin, pre-meal insulin. Hemoglobin A1c in 6.6% Hold home dose of metformin and glipizide for now (4) DNI (do not intubate) Is this a current diagnosis for this admission?: Yes Plan: Patient verbalized that she does not want to be resuscitated (no CPR no intubation) (5) DNR (do not resuscitate) Is this a current diagnosis for this admission?: Yes Plan: Patient verbalized that she does not want to be resuscitated (no CPR no intubation)
[2018-12-04] MEDS: MONTELUKAST SODIUM 10 MG TABLET PO SCH (22:01)
[2018-12-04] MEDS: ATORVASTATIN CALCIUM 40 MG TABLET PO SCH (22:01)
[2018-12-05] MEDS: LORAZEPAM INJ 2 MG/1 ML VIAL IV PRN (00:45)
[2018-12-05] MEDS: IPRATROPIUM/ALBUTEROL 0.5-2.5 MG/3 ML AMPUL NEB SCH ×4 (01:26→20:48)
[2018-12-05] MEDS: PANTOPRAZOLE SODIUM 40 MG TABLET.DR PO SCH (05:52)
[2018-12-05 06:34] LABS: ABSOLUTE BASOPHILS # (AUTO) 0.1 10^3/uL (0.0-0.2); ABSOLUTE EOSINOPHILS # (AUTO) 0.4 10^3/uL (0.0-0.6); ABSOLUTE LYMPHOCYTES (AUTO) 1.1 10^3/uL (0.5-4.7); ABSOLUTE MONOCYTES (AUTO) 0.4 10^3/uL (0.1-1.4); ABSOLUTE NEUT (AUTO) 3.5 10^3/uL (1.7-8.2); BASOPHILS % (AUTO) 0.9 % (0-2); EOSINOPHILS % (AUTO) 7.4 % (0-6); HEMATOCRIT 25.4 % (36.0-47.0); HEMOGLOBIN 8.3 g/dL (12.0-15.5); LYMPHOCYTES % (AUTO) 20.5 % (13-45); MEAN CORPUSCULAR HEMOGLOBIN 27.6 pg (27.0-33.4); MEAN CORPUSCULAR HGB CONC 32.6 g/dL (32.0-36.0); MEAN CORPUSCULAR VOLUME 85 fl (80-97); PLATELET COUNT 238 10^3/uL (150-450); RED BLOOD COUNT 3.01 10^6/uL (3.72-5.28); RED CELL DISTRIBUTION WIDTH 19.2 % (11.5-14.0); SEGMENTED NEUTROPHILS % (AUTO) 63.2 % (42-78); TOTAL CELLS COUNTED % (AUTO) 100 %; WHITE BLOOD COUNT 5.5 10^3/uL (4.0-10.5)
[2018-12-05 06:44] LABS: ARTERIAL BLOOD BASE EXCESS 18.6 mmol/L; ARTERIAL BLOOD H2CO3 2.19 mmol/L (1.05-1.35); ARTERIAL BLOOD HCO3 45.5 mmol/L (20-24); ARTERIAL BLOOD O2 SATURATION 95.2 % (94-98); ARTERIAL BLOOD PH 7.41 (7.35-7.45); ARTERIAL BLOOD PO2 78.7 mmHg (80-100); ARTERIAL BLOOD TOTAL CO2 47.7 mmol/L (21-25)
[2018-12-05 06:45] LABS: ARTERIAL BLOOD FIO2 3L
[2018-12-05 06:46] LABS: ARTERIAL BLOOD PCO2 72.9 mmHg (35-45)
[2018-12-05 06:55] LABS: ALANINE AMINOTRANSFERASE 25 U/L (9-52); ALBUMIN 3.2 g/dL (3.5-5.0); ALKALINE PHOSPHATASE 54 U/L (38-126); ASPARTATE AMINO TRANSFERASE 26 U/L (14-36); BILIRUBIN,DIRECT 0.4 mg/dL (0.0-0.4); BILIRUBIN,TOTAL 0.5 mg/dL (0.2-1.3); BLOOD UREA NITROGEN 22 mg/dL (7-20); CALCIUM 8.7 mg/dL (8.4-10.2); CHLORIDE 89 mmol/L (98-107); GLUCOSE 126 mg/dL (75-110); POTASSIUM 3.5 mmol/L (3.6-5.0); SODIUM 138.9 mmol/L (137-145); TOTAL PROTEIN 6.1 g/dL (6.3-8.2)
[2018-12-05 07:08] LABS: ANION GAP 6 (5-19)
[2018-12-05 07:10] LABS: CARBON DIOXIDE 44 mmol/L (22-30)
[2018-12-05] MEDS: INSULIN LISPRO 100 UNIT/ML 3 ML VIAL SUBCUT SCH ×4 (09:49→22:37)
[2018-12-05] MEDS: FAMOTIDINE 20 MG TABLET PO SCH ×2 (10:12→22:37)
[2018-12-05] MEDS: ASPIRIN 81 MG TABLET, ENT COATED PO SCH (10:13)
[2018-12-05] MEDS: CLOPIDOGREL BISULFATE 75 MG TABLET PO SCH (10:13)
[2018-12-05] MEDS: MAGNESIUM OXIDE 400 MG TABLET PO SCH (10:13)
[2018-12-05] MEDS: POTASSIUM CHLORIDE 10 MEQ CAPSULE.ER PO SCH (10:13)
[2018-12-05] MEDS: FUROSEMIDE 40 MG TABLET PO SCH ×2 (10:13→18:09)
[2018-12-05] MEDS: GUAIFENESIN 600 MG TABLET.SA PO SCH ×2 (10:14→22:37)
[2018-12-05] MEDS: METOPROLOL SUCCINATE 25 MG TAB.SR.24H PO SCH (10:14)
[2018-12-05] MEDS: CEFEPIME HCL 2 GM in DEXTROSE 5%-WATER 50 ML IV SCH ×2 (10:14→22:36)
[2018-12-05] MEDS: ENOXAPARIN SODIUM INJ 30 MG/0.3 ML DISP.SYRIN SUBCUT SCH (10:14)
[2018-12-05] MEDS: CETIRIZINE 10 MG TABLET PO SCH (10:14)
[2018-12-05] MEDS: TIOTROPIUM BROMIDE DPI 5 CAP/KIT (18 MCG/CAP) IH SCH (10:16)
[2018-12-05] MEDS: LIOTHYRONINE SODIUM 5 MCG TABLET PO SCH (10:16)
[2018-12-05] MEDS: CALCIUM CARBONATE 250 MG/VITAMIN D3 125 UNIT TABLET PO SCH (10:17)
--- NOTE | 2018-12-05 14:44 | PDOC PROGRESS REPORT ---
Subjective Progress Note for:: 12/05/18 Subjective:: ALBERTO DIAL is a 73 year old female with a PMH of [place] (stent x2), CHF, HTN, HLD, COPD, GERD, DM, hypothyroidism, arthritis and anemia. She presented to [facility] this morning for severe shortness of breath. Patient wears her trilogy every night but states she has been increasingly SOB for the last 24-48 hours. Patient states she believes her trilogy (new machine, approximately 1 month old) is not working properly. EMS was called, initial SPO2 was approximately 80%. CPAP was initiated in route, and the patient was continued on BiPAP upon arrival to [facility]. Of note, the patient has been admitted to [facility] multiple times this year for COPD/CHF exacerbations. Upon arrival to the ER, CXR demonstrates bilateral pleural effusions, possibly superimposed on R sided PNA. Laboratory studies reveal moderate leukocytosis (WBC 14.2), anemia (Hgb 8.2 HCT 25.8), respiratory acidosis (VBG pH 7.3, CO2 99, HCO3 45), and an elevated proBNP (5010). While it is unclear what triggered the patient's COPD/CHF exacerbation, it is clear the patient requires ongoing BiPAP support and therefore will be admitted to the hospitalist service to [facility]. 12/04/2017. No acute events overnight. Reason For Visit: COPD EXACERBATION Physical Exam Vital Signs: Temp Pulse Resp BP Pulse Ox 97.9 F 57 L 19 136/32 H 98 12/05/18 12:02 12/05/18 12:02 12/05/18 12:02 12/05/18 12:02 12/05/18 12:02 Intake & Output 12/04/18 12/05/18 12/06/18 06:59 06:59 06:59 Intake Total 1580 1781 472 Output Total 3725 3000 1500 Balance -2145 -1219 -1028 Weight 117.6 kg 118.9 kg Results Laboratory Results: 12/05/18 06:02 12/05/18 06:02 12/04/18 12/05/18 12/05/18 21:38 06:00 06:02 WBC 5.5 RBC 3.01 L Hgb 8.3 L Hct 25.4 L MCV 85 MCH 27.6 MCHC 32.6 RDW 19.2 H Plt Count 238 Seg Neutrophils % 63.2 Lymphocytes % 20.5 Monocytes % 8.0 Eosinophils % 7.4 H Basophils % 0.9 Absolute Neutrophils 3.5 Absolute Lymphocytes 1.1 Absolute Monocytes 0.4 Absolute Eosinophils 0.4 Absolute Basophils 0.1 Carbonic Acid 2.19 H HCO3/H2CO3 Ratio 20:1 ABG pH 7.41 ABG pCO2 72.9 H* ABG pO2 78.7 L ABG HCO3 45.5 H ABG O2 Saturation 95.2 ABG Base Excess 18.6 FiO2 3L Sodium Potassium Chloride Carbon Dioxide Anion Gap BUN Creatinine 0.66 Est GFR ( Amer) > 60 Est GFR (Non-Af Amer) > 60 Glucose Calcium Magnesium Total Bilirubin AST ALT Alkaline Phosphatase Total Protein Albumin 12/05/18 06:02 WBC RBC Hgb Hct MCV MCH MCHC RDW Plt Count Seg Neutrophils % Lymphocytes % Monocytes % Eosinophils % Basophils % Absolute Neutrophils Absolute Lymphocytes Absolute Monocytes Absolute Eosinophils Absolute Basophils Carbonic Acid HCO3/H2CO3 Ratio ABG pH ABG pCO2 ABG pO2 ABG HCO3 ABG O2 Saturation ABG Base Excess FiO2 Sodium 138.9 Potassium 3.5 L Chloride 89 L Carbon Dioxide 44 H* Anion Gap 6 BUN 22 H Creatinine 0.63 Est GFR ( Amer) > 60 Est GFR (Non-Af Amer) > 60 Glucose 126 H Calcium 8.7 Magnesium 1.8 Total Bilirubin 0.5 AST 26 ALT 25 Alkaline Phosphatase 54 Total Protein 6.1 L Albumin 3.2 L 12/01/18 12/02/18 05:45 06:42 NT-Pro-B Natriuret Pep 5010 H 6260 H Impressions: Chest X-Ray 12/02/18 06:00 IMPRESSION: Improved aeration bilaterally, likely resolving pulmonary edema. No evidence of new cardiopulmonary process. Assessment and Plan - Diagnosis (1) Acute and chronic respiratory failure with hypercapnia Is this a current diagnosis for this admission?: Yes Plan: Secondary to COPD/CHF exacerbation b/l pleural effusions on CXR and possible underlying PNA SPO2 upon EMS arrival ~ 80% Initial VBG shows respiratory acidosis, plan for ABG in AM ProBNP elevated to 5010, range within last calendar year is 1770-19,800 BIPAP for SPO2> 99 % Sputum cultures no growth. Day 4/5 Cefepime and vancomycin for healthcare associated pneumonia Scheduled nebulizer treatments, IV steroids and BID Mucinex. Pt is DNR (2) COPD exacerbation Is this a current diagnosis for this admission?: Yes Plan: as per problem #1 (3) Diabetes mellitus type 2 in obese Is this a current diagnosis for this admission?: Yes Plan: Accu-Cheks, Dieabtic diet, sliding scale insulin, long-acting insulin, pre-meal insulin. Hemoglobin A1c in 6.6% Hold home dose of metformin and glipizide for now (4) DNI (do not intubate) Is this a current diagnosis for this admission?: Yes Plan: Patient verbalized that she does not want to be resuscitated (no CPR no intubation) (5) DNR (do not resuscitate) Is this a current diagnosis for this admission?: Yes Plan: Patient verbalized that she does not want to be resuscitated (no CPR no intubation) (6) Coronary artery disease Qualifiers: Coronary Disease-Associated Artery/Lesion type: [place] artery Is this a current diagnosis for this admission?: No Plan: History of CAD. Status post 2 stent placement. Continue DAPT, statins, ANGELIQUE, beta blockers. Denies any active chest pain. (7) Diastolic CHF Is this a current diagnosis for this admission?: No Plan: Monitor volume status, continue diuretics guided by vitals and volume status. Continue ANGELIQUE and beta-blockers. Echo on 11/14/2018 showed suboptimal images, left ventricular ejection fraction more than 65%, some evidence of left ventricular diastolic dysfunction. (8) Hyperlipidemia Qualifiers: Hyperlipidemia type: unspecified Qualified Code(s): E78.5 - Hyperlipidemia, unspecified Is this a current diagnosis for this admission?: No Plan: Continue status. Diet and lifestyle modification. (9) Hypertension Qualifiers: Hypertension type: essential hypertension Qualified Code(s): I10 - Essential (primary) hypertension Is this a current diagnosis for this admission?: No Plan: Normotensive. Continue current meds. Adjust meds as needed. (10) Morbid obesity with BMI of 45.0-49.9, adult Is this a current diagnosis for this admission?: No Plan: Continue diet and lifestyle modification. (11) Obesity hypoventilation syndrome Is this a current diagnosis for this admission?: No Plan: Continue nocturnal BiPAP. Outpatient polysomnography. Patient pulmonary follow-up. (12) Sleep apnea Qualifiers: Sleep apnea type: obstructive Qualified Code(s): G47.33 - Obstructive sleep apnea (adult) (pediatric) Is this a current diagnosis for this admission?: No Plan: Continue nocturnal CPAP/BiPAP.
[2018-12-05] MEDS: ATORVASTATIN CALCIUM 40 MG TABLET PO SCH (22:37)
[2018-12-05] MEDS: MONTELUKAST SODIUM 10 MG TABLET PO SCH (22:37)
[2018-12-06] MEDS: IPRATROPIUM/ALBUTEROL 0.5-2.5 MG/3 ML AMPUL NEB SCH ×4 (02:11→21:05)
[2018-12-06 06:27] LABS: ARTERIAL BLOOD BASE EXCESS 20.4 mmol/L; ARTERIAL BLOOD H2CO3 2.18 mmol/L (1.05-1.35); ARTERIAL BLOOD HCO3 47.2 mmol/L (20-24); ARTERIAL BLOOD O2 SATURATION 95.8 % (94-98); ARTERIAL BLOOD PH 7.43 (7.35-7.45); ARTERIAL BLOOD PO2 82.1 mmHg (80-100); ARTERIAL BLOOD TOTAL CO2 49.4 mmol/L (21-25)
[2018-12-06 06:28] LABS: BLOOD UREA NITROGEN 28 mg/dL (7-20); CALCIUM 8.9 mg/dL (8.4-10.2); CHLORIDE 90 mmol/L (98-107); GLUCOSE 132 mg/dL (75-110); POTASSIUM 3.8 mmol/L (3.6-5.0); SODIUM 136.5 mmol/L (137-145)
[2018-12-06 06:28] LABS: ARTERIAL BLOOD FIO2 3L
[2018-12-06 06:29] LABS: ARTERIAL BLOOD PCO2 72.4 mmHg (35-45)
[2018-12-06] MEDS: PANTOPRAZOLE SODIUM 40 MG TABLET.DR PO SCH (06:29)
[2018-12-06 06:45] LABS: ANION GAP 4 (5-19)
[2018-12-06 06:47] LABS: CARBON DIOXIDE 43 mmol/L (22-30)
--- NOTE | 2018-12-06 11:16 | PDOC PROGRESS REPORT ---
Subjective Progress Note for:: 12/06/18 Subjective:: ALBERTO DIAL is a 73 year old female with a PMH of [place] (stent x2), CHF, HTN, HLD, COPD, GERD, DM, hypothyroidism, arthritis and anemia. She presented to [facility] this morning for severe shortness of breath. Patient wears her trilogy every night but states she has been increasingly SOB for the last 24-48 hours. Patient states she believes her trilogy (new machine, approximately 1 month old) is not working properly. EMS was called, initial SPO2 was approximately 80%. CPAP was initiated in route, and the patient was continued on BiPAP upon arrival to [facility]. Of note, the patient has been admitted to [facility] multiple times this year for COPD/CHF exacerbations. Upon arrival to the ER, CXR demonstrates bilateral pleural effusions, possibly superimposed on R sided PNA. Laboratory studies reveal moderate leukocytosis (WBC 14.2), anemia (Hgb 8.2 HCT 25.8), respiratory acidosis (VBG pH 7.3, CO2 99, HCO3 45), and an elevated proBNP (5010). While it is unclear what triggered the patient's COPD/CHF exacerbation, it is clear the patient requires ongoing BiPAP support and therefore will be admitted to the hospitalist service to [facility]. 12/06/2018. No acute events overnight. Patient complaining of not being able to sleep due to too much interruption and also restless leg. She is on and off of BiPAP. Denies any chest pain, nausea, vomiting, diarrhea, inspection or any urinary symptoms. On ABG CO2 is in the 70s her baseline but appears to have improved to 82 from 78.7. On 3 L nasal cannula. Reason For Visit: COPD EXACERBATION Physical Exam Vital Signs: Temp Pulse Resp BP Pulse Ox 97.8 F 60 16 140/42 H 96 12/06/18 08:01 12/06/18 08:38 12/06/18 08:38 12/06/18 08:01 12/06/18 08:38 Intake & Output 12/05/18 12/06/18 12/07/18 06:59 06:59 06:59 Intake Total 1781 1164 Output Total 8665 3950 Balance -1219 -1194 Weight 118.9 kg 117.7 kg General appearance: PRESENT: no acute distress, morbidly obese Head exam: PRESENT: atraumatic, normocephalic Neck exam: ABSENT: carotid bruit, JVD, lymphadenopathy, thyromegaly Respiratory exam: PRESENT: clear to auscultation joel. ABSENT: rales, rhonchi, wheezes Cardiovascular exam: PRESENT: RRR, systolic murmur. ABSENT: diastolic murmur, rubs Pulses: PRESENT: normal dorsalis pedis pul GI/Abdominal exam: PRESENT: normal bowel sounds, soft. ABSENT: distended, guarding, mass, organolmegaly, rebound, tenderness Extremities exam: PRESENT: full ROM. ABSENT: calf tenderness, clubbing, pedal edema Results Laboratory Results: 12/05/18 06:02 12/06/18 05:52 12/06/18 12/06/18 05:52 06:05 Carbonic Acid 2.18 H HCO3/H2CO3 Ratio 21:1 ABG pH 7.43 ABG pCO2 72.4 H* ABG pO2 82.1 ABG HCO3 47.2 H ABG O2 Saturation 95.8 ABG Base Excess 20.4 FiO2 3L Sodium 136.5 L Potassium 3.8 Chloride 90 L Carbon Dioxide 43 H* Anion Gap 4 L BUN 28 H Creatinine 0.64 Est GFR ( Amer) > 60 Est GFR (Non-Af Amer) > 60 Glucose 132 H Calcium 8.9 12/02/18 10:02 Sputum Gram Stain - Final 12/02/18 10:02 Sputum Sputum Culture - Final Yeast, Not Francie Albicans Normal [place] 12/01/18 12/02/18 05:45 06:42 NT-Pro-B Natriuret Pep 5010 H 6260 H Impressions: Chest X-Ray 12/02/18 06:00 IMPRESSION: Improved aeration bilaterally, likely resolving pulmonary edema. No evidence of new cardiopulmonary process. Assessment and Plan - Diagnosis (1) Acute and chronic respiratory failure with hypercapnia Is this a current diagnosis for this admission?: Yes Plan: Secondary to COPD/CHF exacerbation pH 7.43, PCO2 72.4, PO2 82.1. b/l pleural effusions on CXR and possible underlying PNA SPO2 upon EMS arrival ~ 80% ProBNP elevated to 5010, range within last calendar year is 1770-19,800 Sputum cultures normal emerson. Day 5/5 Cefepime and vancomycin for healthcare associated pneumonia. DC vancomycin as patient does not have any sign of pneumonia also vancomycin trough is supratherapeutic. Scheduled nebulizer treatments, IV steroids and BID Mucinex. Pt is DNR (2) COPD exacerbation Is this a current diagnosis for this admission?: Yes Plan: as per problem #1 (3) Diabetes mellitus type 2 in obese Is this a current diagnosis for this admission?: Yes Plan: Accu-Cheks, Dieabtic diet, sliding scale insulin, long-acting insulin, pre-meal insulin. Hemoglobin A1c in 6.6% Hold home dose of metformin and glipizide for now (4) DNI (do not intubate) Is this a current diagnosis for this admission?: Yes Plan: Patient verbalized that she does not want to be resuscitated (no CPR no intubation) (5) DNR (do not resuscitate) Is this a current diagnosis for this admission?: Yes Plan: Patient verbalized that she does not want to be resuscitated (no CPR no intubation) (6) Coronary artery disease Qualifiers: Coronary Disease-Associated Artery/Lesion type: [place] artery Is this a current diagnosis for this admission?: No Plan: History of CAD. Status post 2 stent placement. Continue DAPT, statins, ANGELIQUE, beta blockers. Denies any active chest pain. (7) Diastolic CHF Is this a current diagnosis for this admission?: No Plan: Monitor volume status, continue diuretics guided by vitals and volume status. Continue ANGELIQUE and beta-blockers. Echo on 11/14/2018 showed suboptimal images, left ventricular ejection fraction more than 65%, some evidence of left ventricular diastolic dysfunction. (8) Hyperlipidemia Qualifiers: Hyperlipidemia type: unspecified Qualified Code(s): E78.5 - Hyperlipidemia, unspecified Is this a current diagnosis for this admission?: No Plan: Continue status. Diet and lifestyle modification. (9) Hypertension Qualifiers: Hypertension type: essential hypertension Qualified Code(s): I10 - Essential (primary) hypertension Is this a current diagnosis for this admission?: No Plan: Normotensive. Continue current meds. Adjust meds as needed. (10) Morbid obesity with BMI of 45.0-49.9, adult Is this a current diagnosis for this admission?: No Plan: Continue diet and lifestyle modification. (11) Obesity hypoventilation syndrome Is this a current diagnosis for this admission?: No Plan: Continue nocturnal BiPAP. Outpatient polysomnography. Patient pulmonary follow-up. (12) Sleep apnea Qualifiers: Sleep apnea type: obstructive Qualified Code(s): G47.33 - Obstructive sleep apnea (adult) (pediatric) Is this a current diagnosis for this admission?: No Plan: Continue nocturnal CPAP/BiPAP. (13) Restless leg syndrome Is this a current diagnosis for this admission?: Yes Plan: Start on ropinirole.
[2018-12-06] MEDS: INSULIN LISPRO 100 UNIT/ML 3 ML VIAL SUBCUT SCH ×4 (11:40→23:30)
[2018-12-06] MEDS: POTASSIUM CHLORIDE 10 MEQ CAPSULE.ER PO SCH (11:49)
[2018-12-06] MEDS: FUROSEMIDE 40 MG TABLET PO SCH ×2 (11:49→17:29)
[2018-12-06] MEDS: FAMOTIDINE 20 MG TABLET PO SCH ×2 (11:50→21:54)
[2018-12-06] MEDS: CALCIUM CARBONATE 250 MG/VITAMIN D3 125 UNIT TABLET PO SCH (11:51)
[2018-12-06] MEDS: METOPROLOL SUCCINATE 25 MG TAB.SR.24H PO SCH (11:51)
[2018-12-06] MEDS: CLOPIDOGREL BISULFATE 75 MG TABLET PO SCH (11:51)
[2018-12-06] MEDS: MAGNESIUM OXIDE 400 MG TABLET PO SCH (11:51)
[2018-12-06] MEDS: ASPIRIN 81 MG TABLET, ENT COATED PO SCH (11:51)
[2018-12-06] MEDS: CETIRIZINE 10 MG TABLET PO SCH (11:51)
[2018-12-06] MEDS: ENOXAPARIN SODIUM INJ 30 MG/0.3 ML DISP.SYRIN SUBCUT SCH (11:52)
[2018-12-06] MEDS: GUAIFENESIN 600 MG TABLET.SA PO SCH ×2 (11:52→21:54)
[2018-12-06] MEDS: LIOTHYRONINE SODIUM 5 MCG TABLET PO SCH (11:53)
[2018-12-06] MEDS: TIOTROPIUM BROMIDE DPI 5 CAP/KIT (18 MCG/CAP) IH SCH (11:54)
[2018-12-06] MEDS: CEFEPIME HCL 2 GM in DEXTROSE 5%-WATER 50 ML IV SCH ×2 (11:57→21:54)
[2018-12-06] MEDS: MONTELUKAST SODIUM 10 MG TABLET PO SCH (21:54)
[2018-12-06] MEDS: ROPINIROLE HCL 1 MG TABLET PO SCH (21:54)
[2018-12-06] MEDS: ATORVASTATIN CALCIUM 40 MG TABLET PO SCH (21:54)
[2018-12-07] MEDS: IPRATROPIUM/ALBUTEROL 0.5-2.5 MG/3 ML AMPUL NEB SCH ×4 (02:14→21:11)
[2018-12-07] MEDS: PANTOPRAZOLE SODIUM 40 MG TABLET.DR PO SCH (06:19)
[2018-12-07] MEDS: LORAZEPAM INJ 2 MG/1 ML VIAL IV PRN ×2 (06:19→22:32)
[2018-12-07] MEDS ORDERED: GLUCAGON,HUMAN RECOMB 1 MG INJ IM PRN (08:59)
[2018-12-07] MEDS ORDERED: DEXTROSE 40% GEL 15 GM TUBE PO PRN ×2 (08:59)
[2018-12-07] MEDS ORDERED: DEXTROSE 50%-WATER 25 GM/50 ML DISP.SYRIN IV PRN ×2 (08:59)
[2018-12-07] MEDS ORDERED: BISACODYL 5 MG TABEC PO PRN (09:04)
[2018-12-07] MEDS: INSULIN LISPRO 100 UNIT/ML 3 ML VIAL SUBCUT SCH ×4 (10:44→22:30)
[2018-12-07] MEDS: CALCIUM CARBONATE 250 MG/VITAMIN D3 125 UNIT TABLET PO SCH (10:51)
[2018-12-07] MEDS: ASPIRIN 81 MG TABLET, ENT COATED PO SCH (10:51)
[2018-12-07] MEDS: FUROSEMIDE 40 MG TABLET PO SCH ×2 (10:51→16:59)
[2018-12-07] MEDS: METOPROLOL SUCCINATE 25 MG TAB.SR.24H PO SCH (10:52)
[2018-12-07] MEDS: CETIRIZINE 10 MG TABLET PO SCH (10:52)
[2018-12-07] MEDS: MAGNESIUM OXIDE 400 MG TABLET PO SCH (10:52)
[2018-12-07] MEDS: GUAIFENESIN 600 MG TABLET.SA PO SCH ×2 (10:52→22:30)
[2018-12-07] MEDS: POTASSIUM CHLORIDE 10 MEQ CAPSULE.ER PO SCH (10:52)
[2018-12-07] MEDS: CLOPIDOGREL BISULFATE 75 MG TABLET PO SCH (10:52)
[2018-12-07] MEDS: ENOXAPARIN SODIUM INJ 30 MG/0.3 ML DISP.SYRIN SUBCUT SCH (10:52)
[2018-12-07] MEDS: TIOTROPIUM BROMIDE DPI 5 CAP/KIT (18 MCG/CAP) IH SCH (10:53)
[2018-12-07] MEDS: FAMOTIDINE 20 MG TABLET PO SCH ×2 (10:53→22:30)
[2018-12-07] MEDS: LIOTHYRONINE SODIUM 5 MCG TABLET PO SCH (10:53)
[2018-12-07] MEDS: DOCUSATE SODIUM 100 MG CAPSULE PO SCH (10:53)
[2018-12-07] MEDS: CEFEPIME HCL 2 GM in DEXTROSE 5%-WATER 50 ML IV SCH ×2 (11:13→22:31)
--- NOTE | 2018-12-07 16:43 | PDOC PROGRESS REPORT ---
Subjective Progress Note for:: 12/07/18 Subjective:: ALBERTO DIAL is a 73 year old female with a PMH of [place] (stent x2), CHF, HTN, HLD, COPD, GERD, DM, hypothyroidism, arthritis and anemia. She presented to [facility] this morning for severe shortness of breath. Patient wears her trilogy every night but states she has been increasingly SOB for the last 24-48 hours. Patient states she believes her trilogy (new machine, approximately 1 month old) is not working properly. EMS was called, initial SPO2 was approximately 80%. CPAP was initiated in route, and the patient was continued on BiPAP upon arrival to [facility]. Of note, the patient has been admitted to [facility] multiple times this year for COPD/CHF exacerbations. Upon arrival to the ER, CXR demonstrates bilateral pleural effusions, possibly superimposed on R sided PNA. Laboratory studies reveal moderate leukocytosis (WBC 14.2), anemia (Hgb 8.2 HCT 25.8), respiratory acidosis (VBG pH 7.3, CO2 99, HCO3 45), and an elevated proBNP (5010). While it is unclear what triggered the patient's COPD/CHF exacerbation, it is clear the patient requires ongoing BiPAP support and therefore will be admitted to the hospitalist service to [facility]. 12/06/2018. No acute events overnight. Patient complaining of not being able to sleep due to too much interruption and also restless leg. She is on and off of BiPAP. Denies any chest pain, nausea, vomiting, diarrhea, inspection or any urinary symptoms. On ABG CO2 is in the 70s her baseline but appears to have improved to 82 from 78.7. On 3 L nasal cannula. 12/07/2017. No acute events overnight. Symptoms of restless leg has improved since being started on ropinirole. Patient states that she was able to sleep b rebel last night. She is tolerating room air, still dependent on BiPAP nocturnal. Denies any fever, chills, nausea, vomiting, diarrhea. c/o constipation. Reason For Visit: COPD EXACERBATION Physical Exam Vital Signs: Temp Pulse Resp BP Pulse Ox 97.8 F 63 23 H 122/36 L 99 12/07/18 12:16 12/07/18 14:00 12/07/18 13:01 12/07/18 12:16 12/07/18 13:01 Intake & Output 12/06/18 12/07/18 12/08/18 06:59 06:59 06:59 Intake Total 1164 2005 646 Output Total 3949 2049 750 Balance -2786 -44 -104 Weight 117.7 kg 116.3 kg General appearance: PRESENT: no acute distress, well-developed, well-nourished Head exam: PRESENT: atraumatic, normocephalic Respiratory exam: PRESENT: clear to auscultation joel. ABSENT: rales, rhonchi, wheezes Cardiovascular exam: PRESENT: RRR, systolic murmur. ABSENT: diastolic murmur, rubs GI/Abdominal exam: PRESENT: normal bowel sounds, soft. ABSENT: distended, guarding, mass, organolmegaly, rebound, tenderness Extremities exam: PRESENT: full ROM. ABSENT: calf tenderness, clubbing, pedal edema Neurological exam: PRESENT: alert, awake, oriented to person, oriented to place, oriented to time, oriented to situation, CN II-XII grossly intact. ABSENT: motor sensory deficit Results Laboratory Results: 12/05/18 06:02 12/06/18 05:52 12/01/18 12/02/18 05:45 06:42 NT-Pro-B Natriuret Pep 5010 H 6260 H Impressions: Chest X-Ray 12/02/18 06:00 IMPRESSION: Improved aeration bilaterally, likely resolving pulmonary edema. No evidence of new cardiopulmonary process. Assessment and Plan - Diagnosis (1) Acute and chronic respiratory failure with hypercapnia Is this a current diagnosis for this admission?: Yes Plan: Secondary to COPD/CHF exacerbation pH 7.43, PCO2 72.4, PO2 82.1. b/l pleural effusions on CXR and possible underlying PNA SPO2 upon EMS arrival ~ 80% ProBNP elevated to 5010, range within last calendar year is 1770-19,800 Sputum cultures normal emerson. Day 5/5 Cefepime and vancomycin for healthcare associated pneumonia. DC vancomycin as patient does not have any sign of pneumonia also vancomycin trough is supratherapeutic. Scheduled nebulizer treatments, IV steroids and BID Mucinex. Pt is DNR (2) COPD exacerbation Is this a current diagnosis for this admission?: Yes Plan: as per problem #1 (3) Diabetes mellitus type 2 in obese Is this a current diagnosis for this admission?: Yes Plan: Accu-Cheks, Dieabtic diet, sliding scale insulin, long-acting insulin, pre-meal insulin. Hemoglobin A1c in 6.6% Hold home dose of metformin and glipizide for now (4) DNI (do not intubate) Is this a current diagnosis for this admission?: Yes Plan: Patient verbalized that she does not want to be resuscitated (no CPR no intubation) (5) DNR (do not resuscitate) Is this a current diagnosis for this admission?: Yes Plan: Patient verbalized that she does not want to be resuscitated (no CPR no intubation) (6) Coronary artery disease Qualifiers: Coronary Disease-Associated Artery/Lesion type: [place] artery Is this a current diagnosis for this admission?: No Plan: History of CAD. Status post 2 stent placement. Continue DAPT, statins, ANGELIQUE, beta blockers. Denies any active chest pain. (7) Diastolic CHF Is this a current diagnosis for this admission?: No Plan: Monitor volume status, continue diuretics guided by vitals and volume status. Continue ANGELIQUE and beta-blockers. Echo on 11/14/2018 showed suboptimal images, left ventricular ejection fraction more than 65%, some evidence of left ventricular diastolic dysfunction. (8) Hyperlipidemia Qualifiers: Hyperlipidemia type: unspecified Qualified Code(s): E78.5 - Hyperlipidemia, unspecified Is this a current diagnosis for this admission?: No Plan: Continue status. Diet and lifestyle modification. (9) Hypertension Qualifiers: Hypertension type: essential hypertension Qualified Code(s): I10 - Essential (primary) hypertension Is this a current diagnosis for this admission?: No Plan: Normotensive. Continue current meds. Adjust meds as needed. (10) Morbid obesity with BMI of 45.0-49.9, adult Is this a current diagnosis for this admission?: No Plan: Continue diet and lifestyle modification. (11) Obesity hypoventilation syndrome Is this a current diagnosis for this admission?: No Plan: Continue nocturnal BiPAP. Outpatient polysomnography. Patient pulmonary follow-up. (12) Sleep apnea Qualifiers: Sleep apnea type: obstructive Qualified Code(s): G47.33 - Obstructive sleep apnea (adult) (pediatric) Is this a current diagnosis for this admission?: No Plan: Continue nocturnal CPAP/BiPAP. (13) Restless leg syndrome Is this a current diagnosis for this admission?: Yes Plan: Start on ropinirole.
[2018-12-07] MEDS ORDERED: INSULIN GLARGINE,HUM.REC.ANLOG 1,000 UNIT/10 ML VIAL SUBCUT SCH (22:00)
[2018-12-07] MEDS: ATORVASTATIN CALCIUM 40 MG TABLET PO SCH (22:30)
[2018-12-07] MEDS: MONTELUKAST SODIUM 10 MG TABLET PO SCH (22:30)
[2018-12-07] MEDS: ROPINIROLE HCL 1 MG TABLET PO SCH (22:30)
[2018-12-08] MEDS: IPRATROPIUM/ALBUTEROL 0.5-2.5 MG/3 ML AMPUL NEB SCH ×3 (01:35→13:58)
[2018-12-08] MEDS: PANTOPRAZOLE SODIUM 40 MG TABLET.DR PO SCH (05:47)
[2018-12-08] MEDS: INSULIN LISPRO 100 UNIT/ML 3 ML VIAL SUBCUT SCH ×2 (08:07→14:05)
[2018-12-08] MEDS: FUROSEMIDE 40 MG TABLET PO SCH (08:12)
[2018-12-08] MEDS: CETIRIZINE 10 MG TABLET PO SCH (10:16)
[2018-12-08] MEDS: METOPROLOL SUCCINATE 25 MG TAB.SR.24H PO SCH (10:16)
[2018-12-08] MEDS: ASPIRIN 81 MG TABLET, ENT COATED PO SCH (10:16)
[2018-12-08] MEDS: CALCIUM CARBONATE 250 MG/VITAMIN D3 125 UNIT TABLET PO SCH (10:16)
[2018-12-08] MEDS: FAMOTIDINE 20 MG TABLET PO SCH (10:16)
[2018-12-08] MEDS: CEFEPIME HCL 2 GM in DEXTROSE 5%-WATER 50 ML IV SCH (10:16)
[2018-12-08] MEDS: MAGNESIUM OXIDE 400 MG TABLET PO SCH (10:16)
[2018-12-08] MEDS: POTASSIUM CHLORIDE 10 MEQ CAPSULE.ER PO SCH (10:16)
[2018-12-08] MEDS: CLOPIDOGREL BISULFATE 75 MG TABLET PO SCH (10:17)
[2018-12-08] MEDS: GUAIFENESIN 600 MG TABLET.SA PO SCH (10:17)
[2018-12-08] MEDS: DOCUSATE SODIUM 100 MG CAPSULE PO SCH (10:17)
[2018-12-08] MEDS: ENOXAPARIN SODIUM INJ 30 MG/0.3 ML DISP.SYRIN SUBCUT SCH (10:24)
[2018-12-08] MEDS: TIOTROPIUM BROMIDE DPI 5 CAP/KIT (18 MCG/CAP) IH SCH (10:25)
[2018-12-08] MEDS: LIOTHYRONINE SODIUM 5 MCG TABLET PO SCH (10:25)
[2018-12-08 14:38] VITALS: BP 123/54
[2018-12-08] MEDS ORDERED: NA PHOS,M-B/NA PHOS,DI-BA (ADULT) 133 ML ENEMA PR PRN (14:58)
--- NOTE | 2018-12-13 14:53 | PDOC DISCHARGE SUMMARY ---
General - Admit/Disc Date/PCP Admission Date/Primary Care Provider: 12/01/18 09:03 JEEVAN EARLY MD Discharge Date: 12/08/18 - Discharge Diagnosis (1) Acute and chronic respiratory failure with hypercapnia Is this a current diagnosis for this admission?: Yes (2) COPD exacerbation Is this a current diagnosis for this admission?: Yes (3) Diabetes mellitus type 2 in obese Is this a current diagnosis for this admission?: Yes (4) DNI (do not intubate) Is this a current diagnosis for this admission?: Yes (5) DNR (do not resuscitate) Is this a current diagnosis for this admission?: Yes (6) Coronary artery disease Is this a current diagnosis for this admission?: No (7) Diastolic CHF Is this a current diagnosis for this admission?: No (8) Hyperlipidemia Is this a current diagnosis for this admission?: No (9) Hypertension Is this a current diagnosis for this admission?: No (10) Morbid obesity with BMI of 45.0-49.9, adult Is this a current diagnosis for this admission?: No (11) Obesity hypoventilation syndrome Is this a current diagnosis for this admission?: No (12) Sleep apnea Is this a current diagnosis for this admission?: No (13) Restless leg syndrome Is this a current diagnosis for this admission?: Yes - Additional Information Resuscitation Status: Do Not Intubate Discharge Diet: Cardiac Discharge Activity: Activity As Tolerated, Balance Activity w/Rest, Energy Conservation Prescriptions: Budesonide/Formoterol Fumarate [Symbicort HFA 160-4.5 mcg Inhaler 6 gm] 2 puff IH Q12 30 Days #3 inhaler Na Phos,M-B/Na Phos,Di-Ba [Fleet Enema (Adult) 133 ml] 1 applic MS DAILYP PRN #1 enema PRN Reason: Ropinirole HCl 1 mg PO QHS 30 Days #30 tablet Home Medications: Aspirin [Ecotrin 81 mg EC Tablet] 81 mg PO DAILY 12/01/18 Atorvastatin Calcium [Lipitor 40 mg Tablet] 40 mg PO QHS 12/01/18 Calcium Citrate/Vitamin D3 [Citracal + D Maximum Caplet] 1 tab PO DAILY 12/01/18 Cetirizine HCl [Zyrtec 10 mg Tablet] 1 tab PO DAILY 12/01/18 Clopidogrel Bisulfate [Plavix 75 mg Tablet] 75 mg PO DAILY 12/01/18 Furosemide [Lasix 40 mg Tablet] 40 mg PO QPM 12/01/18 Furosemide [Lasix 40 mg Tablet] 60 mg PO QAM 12/01/18 Glipizide [Glucotrol 10 mg Tablet] 10 mg PO QAM 12/01/18 Ipratropium/Albuterol Sulfate [Duoneb 3 ml Ampul] 3 ml NEB [id number] PRN 12/01/18 Liothyronine Sodium [Cytomel] 10 mcg PO DAILY 12/01/18 Magnesium Oxide [Mag-Ox 400 mg Tablet] 400 mg PO DAILY 12/01/18 Metformin HCl [Glucophage 500 mg Tablet] 500 mg PO BIDBS 12/01/18 Metoprolol Succinate [Toprol Xl 25 mg Tab.sr] 12.5 mg PO DAILY 12/01/18 Montelukast Sodium [Singulair 10 mg Tablet] 10 mg PO QHS 12/01/18 Nitroglycerin [Nitrostat 0.4 mg (1/150 Gr) Tabs 25/Bottle] 1 tab SL Q5MP PRN 12/01/18 Potassium Chloride [Klor-Con 10 Meq Capsule ER] 30 meq PO DAILY 12/01/18 Rabeprazole Sodium [Aciphex] 20 mg PO Q6AM 12/01/18 Budesonide/Formoterol Fumarate [Symbicort HFA 160-4.5 mcg Inhaler 6 gm] 2 puff IH Q12 30 Days #3 inhaler 12/08/18 Na Phos,M-B/Na Phos,Di-Ba [Fleet Enema (Adult) 133 ml] 1 applic MS DAILYP PRN #1 enema 12/08/18 Ropinirole HCl 1 mg PO QHS 30 Days #30 tablet 12/08/18 History of Present Illness History of Present Illness: ALBERTO DIAL is a 73 year old female with a PMH of PR (stent x2), CHF, HTN, HLD, COPD, GERD, DM, hypothyroidism, arthritis and anemia. She presented to [facility] ER this morning for severe shortness of breath. Patient wears her trilogy every night but states she has been increasingly SOB for the last 24-48 hours. Patient states she believes her trilogy (new machine, approximately 1 month old) is not working properly. EMS was called, initial SPO2 was approximately 80%. CPAP was initiated in route, and the patient was continued on BiPAP upon arrival to [facility] ER. Of note, the patient has been admitted to [facility] multiple times this year for COPD/CHF exacerbations. Upon arrival to the ER, CXR demonstrates bilateral pleural effusions, possibly superimposed on R sided PNA. Laboratory studies reveal moderate leukocytosis (WBC 14.2), anemia (Hgb 8.2 HCT 25.8), respiratory acidosis (VBG pH 7.3, CO2 99, HCO3 45), and an elevated proBNP (5010). While it is unclear what triggered the patient's COPD/CHF exacerbation, it is clear the patient requires ongoing BiPAP support and therefore will be admitted to the hospitalist service to [facility]. 12/06/2018. No acute events overnight. Patient complaining of not being able to sleep due to too much interruption and also restless leg. She is on and off of BiPAP. Denies any chest pain, nausea, vomiting, diarrhea, inspection or any urinary symptoms. On ABG CO2 is in the 70s her baseline but appears to have improved to 82 from 78.7. On 3 L nasal cannula. 12/07/2017. No acute events overnight. Symptoms of restless leg has improved since being started on ropinirole. Patient states that she was able to sleep better last night. She is tolerating room air, still dependent on BiPAP nocturnal. Denies any fever, chills, nausea, vomiting, diarrhea. c/o constipation. Hospital Course Hospital Course: (1) Acute and chronic respiratory failure with hypercapnia Improved. Secondary to COPD/CHF exacerbation 12/07/2018. BG: pH 7.43, PCO2 72.4, PO2 82.1. SPO2 91% 3 L nasal cannula. b/l pleural effusions on CXR and possible underlying PNA SPO2 upon EMS arrival 80%. ProBNP elevated to 5010, range within last calendar year is 1770-19,800 Sputum cultures normal emerson. Received 5/5 Cefepime and vancomycin for healthcare associated pneumonia. Vancomycin DC'd as patient does not have any sign of pneumonia also vancomycin trough is supratherapeutic. Scheduled nebulizer treatments, IV steroids and BID Mucinex. Pt is DNR Appointment was made for her to see her PCP Jeevan Early MD 12/22/19 (2) COPD exacerbation as per problem #1 (3) Diabetes mellitus type 2 in obese Accu-Cheks, Dieabtic diet, sliding scale insulin, long-acting insulin, pre-meal insulin. Hemoglobin A1c in 6.6% Hold home dose of metformin and glipizide for now. Advised to restart metformin and glipizide on discharge. Appointment was made for her to see her PCP Jeevan Early MD 12/22/19 (4) DNI (do not intubate) Patient verbalized that she does not want to be resuscitated (no CPR no intubati on) (5) DNR (do not resuscitate) Patient verbalized that she does not want to be resuscitated (no CPR no intubation) (6) Coronary artery disease History of CAD. Status post 2 stent placement. Continued DAPT, statins, ANGELIQUE, beta blockers. Denied any active chest pain. (7) Diastolic CHF Monitored volume status, continued on diuretics guided by vitals and volume status. Continued ANGELIQUE and beta-blockers. Echo on 11/14/2018 showed suboptimal images, left ventricular ejection fraction more than 65%, some evidence of left ventricular diastolic dysfunction. (8) Hyperlipidemia Continued statins. Diet and lifestyle modification advised. (9) Hypertension Normotensive. Continue current meds. Adjust meds as needed. Appointment was made for her to see her PCP Jeevan Early MD 12/22/19 (10) Morbid obesity with BMI of 45.0-49.9, adult Continue diet and lifestyle modification. (11) Obesity hypoventilation syndrome Continue nocturnal BiPAP. Outpatient polysomnography. Patient pulmonary follow-up. (12) Sleep apnea Continue nocturnal CPAP/BiPAP. (13) Restless leg syndrome Start on ropinirole. Physical Exam Vital Signs: Temp Pulse Resp BP Pulse Ox 97.9 F 90 16 123/54 L 99 12/08/18 14:32 12/08/18 14:32 12/08/18 14:32 12/08/18 14:32 12/08/18 14:32 General appearance: PRESENT: no acute distress, well-developed, well-nourished Head exam: PRESENT: atraumatic, normocephalic Respiratory exam: PRESENT: clear to auscultation joel. ABSENT: rales, rhonchi, wheezes Cardiovascular exam: PRESENT: RRR. ABSENT: diastolic murmur, rubs, systolic murmur GI/Abdominal exam: PRESENT: normal bowel sounds, soft. ABSENT: distended, guarding, mass, organolmegaly, rebound, tenderness Neurological exam: PRESENT: alert, awake, oriented to person, oriented to place, oriented to time, oriented to situation, CN II-XII grossly intact, motor sensory deficit Results Laboratory Results: 12/05/18 06:02 12/06/18 05:52 12/01/18 12/02/18 05:45 06:42 NT-Pro-B Natriuret Pep 5010 H 6260 H Impressions: Chest X-Ray 12/02/18 06:00 IMPRESSION: Improved aeration bilaterally, likely resolving pulmonary edema. No evidence of new cardiopulmonary process. Qualifiers - * PATIENT BEING DISCHARGED WITH ANY OF THE FOLLOWING DIAGNOSIS: No
== END 2018-12-08 16:35 | disposition home or self-care (01) | DRG 189 ==
LOC: ER 04:15 → EH 09:03 → 3S 11:42
PROVIDERS: ADMIT Internal Medicine; ATTEND Internal Medicine
PROC: 5A09557 Assistance with Respiratory Ventilation, Greater than 96 Consecutive Hours, Continuous Positive Airway Pressure (ICD-10-PCS; principal; 2018-12-01)
DX: J96.22 Acute and chronic respiratory failure with hypercapnia (principal); J44.1 Chronic obstructive pulmonary disease with (acute) exacerbation; Z68.42 Body mass index [BMI] 45.0-49.9, adult; E66.2 Morbid (severe) obesity with alveolar hypoventilation; I50.32 Chronic diastolic (congestive) heart failure; E11.9 Type 2 diabetes mellitus without complications; Z66 Do not resuscitate; I25.10 Atherosclerotic heart disease of native coronary artery without angina pectoris; E78.5 Hyperlipidemia, unspecified; D64.9 Anemia, unspecified; G47.30 Sleep apnea, unspecified; K21.9 Gastro-esophageal reflux disease without esophagitis; E03.9 Hypothyroidism, unspecified; M19.90 Unspecified osteoarthritis, unspecified site; G25.81 Restless legs syndrome; J34.89 Other specified disorders of nose and nasal sinuses; I11.0 Hypertensive heart disease with heart failure; F32.9 Major depressive disorder, single episode, unspecified; Z79.82 Long term (current) use of aspirin; Z79.84 Long term (current) use of oral hypoglycemic drugs; I25.2 Old myocardial infarction; Z95.5 Presence of coronary angioplasty implant and graft; Z90.49 Acquired absence of other specified parts of digestive tract; Z87.891 Personal history of nicotine dependence; Z88.6 Allergy status to analgesic agent; Z82.49 Family history of ischemic heart disease and other diseases of the circulatory system; Z83.3 Family history of diabetes mellitus; Z79.899 Other long term (current) drug therapy
CPT/HCPCS: 36415; 36600; 51702; 71045; 80048; 80053; 80202; 81001; 82565; 82803; 82962; 83036; 83735; 83880; 84443; 85025; 87070; 87086; 87205; 93005; 93010; 94660; 96365; 96368; 99285; J0692; J0696; J1650; J1815; J1940; J1956; J2060; J2920; J3370; J3490; J7060; J7620

== ENCOUNTER → 2018-12-09 | Outpatient (CLI) | payer MEDICARE ==
[2018-12-09 16:46] LABS: HEMATOCRIT 26.5 % (36.0-47.0); HEMOGLOBIN 8.6 g/dL (12.0-15.5); MEAN CORPUSCULAR HEMOGLOBIN 27.5 pg (27.0-33.4); MEAN CORPUSCULAR HGB CONC 32.3 g/dL (32.0-36.0); MEAN CORPUSCULAR VOLUME 85 fl (80-97); PLATELET COUNT 333 10^3/uL (150-450); RED BLOOD COUNT 3.11 10^6/uL (3.72-5.28); RED CELL DISTRIBUTION WIDTH 18.3 % (11.5-14.0); WHITE BLOOD COUNT 7.8 10^3/uL (4.0-10.5)
== END ==
LOC: OD 14:39
PROVIDERS: ATTEND Physician Assistant
DX: I50.32 Chronic diastolic (congestive) heart failure (principal); D64.9 Anemia, unspecified
CPT/HCPCS: 36415; 83880; 85027

== ENCOUNTER 2018-12-27 21:26 | Inpatient (IN) | payer MEDICARE ==
--- NOTE | 2018-12-27 21:53 | ER Document Report ---
ED General - General Stated Complaint: DB Time Seen by Provider: 12/27/18 21:42 Notes: Patient is a 73-year-old female that comes to the emergency department for chief complaint of difficulty breathing. She comes from home by EMS, was found to have an initial blood glucose of 47, she was given D10, recheck was 117. Patient was also found to be hypoxic using a nonrebreather mask with only 2 L going, she was placed on 4 L nasal cannula and had improvement of her oxy genation although she still complains of shortness of breath. She denies fever/chills, she reports a minimal cough. Only current complaint is difficulty breathing. Patient was found to have a core temp of 95.8 on arrival. Past medical history is extensive and includes CHF, COPD, CAD with stents x2, type 2 diabetes on metformin and glipizide. TRAVEL OUTSIDE OF THE [place] IN LAST 30 DAYS: No - Related Data Allergies/Adverse Reactions: hydromorphone HCl [From Dilaudid] Allergy (Severe, Verified 12/01/18 04:18) Respiratory arrest codeine [Codeine] Allergy (Intermediate, Verified 12/01/18 04:18) Hallucinations Past Medical History - General Information source: Patient - Social History Smoking Status: Never Smoker Frequency of alcohol use: None Lives with: Family Family History: DM, Hyperlipidemia, Hypertension - Past Medical History Cardiac Medical History: Reports: Hx Congestive Heart Failure - Diastolic, Hx Coronary Artery Disease, Hx Heart Attack - cardiac stents x 2, Hx Hypercholesterolemia, Hx Hypertension, Hx Heart Murmur - aortic stenosis Denies: Hx DVT, Hx Pulmonary Embolism Pulmonary Medical History: Reports: Hx Asthma, Hx Bronchitis, Hx COPD, Hx Sleep Apnea - Bipap Denies: Hx Pneumonia, Hx Tuberculosis Neurological Medical History: Denies: Hx Cerebrovascular Accident, Hx Seizures Endocrine Medical History: Reports: Hx Diabetes Mellitus Type 2, Hx Hypothyroidism. Denies: Hx Diabetes Mellitus Type 1, Hx Hyperthyroidism Renal/ Medical History: Denies: Hx Peritoneal Dialysis GI Medical History: Reports: Hx Gastroesophageal Reflux Disease, Hx Ulcer. Denies: Hx Cirrhosis, Hx Hepatitis, Hx Ulcerative Colitis Musculoskeletal Medical History: Reports Hx Arthritis - generalized Skin Medical History: Reports Hx Cellulitis Psychiatric Medical History: Reports: Hx Depression Traumatic Medical History: Denies: Hx Traumatic Brain Injury Infectious Medical History: Denies: Hx Hepatitis, Hx HIV Past Surgical History: Reports: Hx Appendectomy, Hx Colostomy - then reversed, Hx Hysterectomy, Hx Neurologic Surgery - spinal fusion, Hx Orthopedic Surgery - carpal tunnel, polio surgery to left leg. Denies: Hx Pacemaker - Immunizations Immunizations up to date: Yes Hx Diphtheria, Pertussis, Tetanus Vaccination: Yes Hx Pneumococcal Vaccination: 08/18/14 Review of Systems - Review of Systems Constitutional: No symptoms reported EENT: No symptoms reported Cardiovascular: No symptoms reported Respiratory: See HPI Gastrointestinal: No symptoms reported Genitourinary: No symptoms reported Female Genitourinary: No symptoms reported Musculoskeletal: No symptoms reported Skin: No symptoms reported Hematologic/Lymphatic: No symptoms reported Neurological/Psychological: No symptoms reported Physical Exam - Vital signs Vitals: Resp Pulse Ox 20 87 L 12/27/18 21:33 12/27/18 21:33 - Notes Notes: GENERAL: Somewhat chronically ill in appearance, somewhat unkempt HEAD: Normocephalic, atraumatic. EYES: Pupils equal, round, and reactive to light. Extraocular movements intact. ENT: Oral mucosa dry, tongue midline. Oropharynx unremarkable. Airway patent. NECK: Full range of motion. Supple. Trachea midline. LUNGS: Rales heard throughout all lung spaces, patient has mild tachypnea but she still can speak in full sentences. Mild respiratory distress. HEART: Regular rate and rhythm. No murmur ABDOMEN: Soft, non-tender. Non-distended. Bowel sounds present in all 4 quadrants. GENITOURINARY: Deferred EXTREMITIES: Moves all 4 extremities spontaneously. No edema, normal radial and dorsalis pedis pulses bilaterally. No cyanosis. BACK: no cervical, thoracic, lumbar midline tenderness. No saddle anesthesia, normal distal neurovascular exam. NEUROLOGICAL: Alert and oriented x3. Normal speech. Cranial nerves II through XII grossly intact. PSYCH: Normal affect, normal mood. SKIN: Mild skin breakdown in the sacral area without noted cellulitis Course - Re-evaluation Re-evalutation: Initially patient came in, she was on her oxygen, she was alert, tachypneic, but not toxic. She was eating crackers with peanut butter because of her initial hypoglycemia. She is on a sulfonylurea that she states she has taken, however she states she has not eaten anything in 2 days. She has rales everywhere, she began becoming more tachypneic with labored breathing, patient placed on her original 4 L of nasal cannula and we will call for BiPAP. Blood glucose rechecked twice and has not significantly declined. Patient reevaluated, she is actually doing very well on BiPAP, she has had nitroglycerin paste placed and she has been given Lasix. Patient states she feels much improved. Tachypnea has resolved. She is not hypoxic. Chest x-ray showing pulmonary vascular congestion. Troponin is not elevated. BNP is elevated. CBC is generally unremarkable. Chemistry shows elevated bicarbonate, venous blood gas shows respiratory acidosis with severe hypercarbia. I discussed all workup with patient. Fortunately despite extreme hypercarbia patient is still conversational and alert. She is doing well on BiPAP at this time. She is responsive and oriented. She is a DNR/DNI. She states that she is not getting good care at home and her son does not understand the level of care that she needs. Will discuss with hospitalist for admission, she states agreement with this plan. 12/28/18 00:[address] Adame, patient will be admitted to the [facility]. - Vital Signs Vital signs: Temp Pulse Resp BP Pulse Ox 98.2 F 61 33 H 166/52 H 94 12/28/18 02:31 12/28/18 02:31 12/28/18 04:29 12/28/18 02:31 12/28/18 04:29 - Laboratory Result Diagrams: 12/28/18 04:25 12/28/18 04:25 Laboratory results interpreted by me: 12/27/18 12/27/18 12/27/18 21:55 21:55 21:55 Hgb 10.7 L Hct 33.7 L MCHC 31.7 L RDW 17.3 H Seg Neuts % (Manual) 83 H Lymphocytes % (Manual) 10 L Monocytes % (Manual) 2 L VBG pH VBG pCO2 VBG HCO3 Chloride 85 L Carbon Dioxide 48 H* BUN 28 H Glucose 121 H NT-Pro-B Natriuret Pep 6540 H 12/27/18 21:55 Hgb Hct MCHC RDW Seg Neuts % (Manual) Lymphocytes % (Manual) Monocytes % (Manual) VBG pH 7.20 L VBG pCO2 143.0 H* VBG HCO3 54.4 H Chloride Carbon Dioxide BUN Glucose NT-Pro-B Natriuret Pep - EKG Interpretation by Me Additional EKG results interpreted by me: EKG shows sinus bradycardia at a rate of 55, multiple PACs, no T wave inversions or ST segment changes in consecutive leads. There is right bundle branch block present. QTC of 456, PA interval of 168. Critical Care Note - Critical Care Note Total time excluding time spent on procedures (mins): 40 - Acute on chronic respiratory failure, CHF exacerbation, hypoglycemia Comments: Please allow 40 minutes of critical care time for evaluation and management of patient with acute on chronic respiratory failure, CHF exacerbation, hypoglycemia. Interventions including nitroglycerin, Lasix, BiPAP, blood sugar monitoring. Time spent discussing with patient, time spent reviewing previous and current records, multiple re-evaluations performed. Time spent discussing with hospitalist and admitting to the hospital. Discharge - Discharge Clinical Impression: Hypoglycemia Acute and chronic respiratory failure Qualifiers: Respiratory failure complication: hypercapnia Qualified Code(s): J96.22 - Acute and chronic respiratory failure with hypercapnia CHF exacerbation Qualifiers: Heart failure type: unspecified Qualified Code(s): I50.9 - Heart failure, unspecified Hypothermia Qualifiers: Encounter type: initial encounter Qualified Code(s): T68.XXXA - Hypothermia, initial encounter Condition: Fair Disposition: ADMITTED INPATIENT Admitting Provider: Deep (Hospitalist) Unit Admitted: [facility]
[2018-12-27 22:07] LABS: VENOUS BLOOD BASE EXCESS 20.8 mmol/L; VENOUS BLOOD HCO3 54.4 mmol/L (20-32); VENOUS BLOOD PH 7.2 (7.30-7.42)
[2018-12-27 22:09] LABS: HEMATOCRIT 33.7 % (36.0-47.0); HEMOGLOBIN 10.7 g/dL (12.0-15.5); MEAN CORPUSCULAR HEMOGLOBIN 27.3 pg (27.0-33.4); MEAN CORPUSCULAR HGB CONC 31.7 g/dL (32.0-36.0); MEAN CORPUSCULAR VOLUME 86 fl (80-97); PLATELET COUNT 307 10^3/uL (150-450); RED BLOOD COUNT 3.92 10^6/uL (3.72-5.28); RED CELL DISTRIBUTION WIDTH 17.3 % (11.5-14.0); WHITE BLOOD COUNT 7.9 10^3/uL (4.0-10.5)
[2018-12-27 22:27] LABS: ABSOLUTE LYMPHOCYTES# (MANUAL) 0.8 10^3/uL (0.5-4.7); ABSOLUTE MONOCYTES # (MANUAL) 0.2 10^3/uL (0.1-1.4); ABSOLUTE NEUTROPHILS# (MANUAL) 6.9 10^3/uL (1.7-8.2); BAND NEUTROPHILS % (MANUAL) 4 % (3-5); EOSINOPHILS % (MANUAL) 1 % (0-6); LYMPHOCYTES % (MANUAL) 10 % (13-45); MONOCYTES % (MANUAL) 2 % (3-13); PLATELET COMMENT ADEQUATE; SEGMENTED NEUTROPHILS % (MAN) 83 % (42-78); TOTAL CELLS COUNTED 100; TOXIC GRANULATION SLIGHT
[2018-12-27 22:29] LABS: ANISOCYTOSIS 1+; HYPOCHROMASIA SLIGHT; POLYCHROMASIA SLIGHT; STOMATOCYTES 2+
[2018-12-27 22:30] LABS: ALANINE AMINOTRANSFERASE 29 U/L (9-52); ALBUMIN 3.6 g/dL (3.5-5.0); ALKALINE PHOSPHATASE 69 U/L (38-126); ASPARTATE AMINO TRANSFERASE 19 U/L (14-36); BASOPHILS % (MANUAL) 0 % (0-2); BILIRUBIN,DIRECT 0.3 mg/dL (0.0-0.4); BILIRUBIN,TOTAL 0.6 mg/dL (0.2-1.3); BLOOD UREA NITROGEN 28 mg/dL (7-20); CALCIUM 8.9 mg/dL (8.4-10.2); CHLORIDE 85 mmol/L (98-107); GLUCOSE 121 mg/dL (75-110); POTASSIUM 4.7 mmol/L (3.6-5.0); SODIUM 140.3 mmol/L (137-145); TOTAL PROTEIN 6.7 g/dL (6.3-8.2)
[2018-12-27 22:39] LABS: TROPONIN I 0.013 ng/mL
[2018-12-27 22:40] LABS: ANION GAP 7 (5-19)
[2018-12-27 22:41] LABS: CARBON DIOXIDE 48 mmol/L (22-30)
[2018-12-27] MEDS ORDERED: FUROSEMIDE INJ/PF 40 MG/4 ML SDV IV ONE (22:42)
[2018-12-27] MEDS ORDERED: NITROGLYCERIN 2% OINTMENT 1 GM PACKET TP ONE (22:42)
--- NOTE | 2018-12-27 22:45 | RADIOLOGY REPORT (SQ) ---
EXAM DESCRIPTION: XR CHEST 1 VIEW COMPLETED DATE/TME: 12/27/2018 21:49 CLINICAL HISTORY: 73 years Female, shortness of breath COMPARISON: 12/02/18 NUMBER OF VIEWS/TECHNIQUE: 1/AP FINDINGS: Pulmonary vascular congestion, and normal cardiac silhouette. No pneumothorax. Moderate levo convexity. Stable bony thorax. IMPRESSION: Pulmonary vascular congestion.
[2018-12-27 23:44] LABS: APPEARANCE,URINE CLEAR; BILIRUBIN,URINE NEGATIVE (NEGATIVE); COLOR,URINE YELLOW; GLUCOSE, URINE NEGATIVE (NEGATIVE); KETONES,URINE NEGATIVE (NEGATIVE); LEUKOCYTE ESTERASE,URINE NEGATIVE (NEGATIVE); NITRITE,URINE NEGATIVE (NEGATIVE); PROTEIN,URINE NEGATIVE (NEGATIVE); URINE SPECIFIC GRAVITY 1.014; UROBILINOGEN,URINE NEGATIVE mg/dL (<2.0)
--- NOTE | 2018-12-27 23:50 | EKG REPORT ---
SEVERITY:- ABNORMAL ECG - SINUS RHYTHM MULTIPLE ATRIAL PREMATURE COMPLEXES RBBB AND LAFB PROBABLE LVH WITH SECONDARY REPOL ABNRM : Confirmed by: Pebbles Small MD 27-Dec-2018 23:50:05
[2018-12-28] MEDS ORDERED: HYDRALAZINE HCL INJ/PF 20 MG/1 ML SDV IV PRN (00:40)
[2018-12-28] MEDS ORDERED: LACTULOSE SYRUP 20 GM/30 ML UDCUP PO ONE (00:40)
[2018-12-28] MEDS ORDERED: NA PHOS,M-B/NA PHOS,DI-BA (ADULT) 133 ML ENEMA PR PRN (00:40)
[2018-12-28] MEDS ORDERED: MAGNESIUM HYDROXIDE SUSP 30 ML UDCUP PO PRN (00:45)
[2018-12-28] MEDS ORDERED: CHLORPHENIRAMINE MALEATE 4 MG TABLET PO SCH (00:45)
[2018-12-28] MEDS: LOSARTAN POTASSIUM 25 MG TABLET PO SCH ×3 (02:23→21:38)
[2018-12-28] MEDS: AMLODIPINE BESYLATE 2.5 MG TABLET PO SCH ×2 (02:23→14:50)
[2018-12-28] MEDS: ATORVASTATIN CALCIUM 40 MG TABLET PO SCH ×2 (02:23→21:38)
[2018-12-28] MEDS: FLUTICASONE NASAL SPRAY 50 MCG/SPRY 120 SPRAY/16 GM NASL SCH ×3 (03:05→21:40)
[2018-12-28] MEDS ORDERED: CHLORPHENIRAMINE MALEATE 4 MG TABLET ONE (03:20)
[2018-12-28 04:32] LABS: URINE AMPHETAMINES SCREEN NEGATIVE; URINE BARBITURATES SCREEN NEGATIVE; URINE BENZODIAZEPINES SCREEN NEGATIVE; URINE COCAINE SCREEN NEGATIVE; URINE MARIJUANA (THC) SCREEN NEGATIVE; URINE METHADONE SCREEN NEGATIVE; URINE PHENCYCLIDINE SCREEN NEGATIVE
[2018-12-28 04:38] LABS: ABSOLUTE BASOPHILS # (AUTO) 0.1 10^3/uL (0.0-0.2); ABSOLUTE EOSINOPHILS # (AUTO) 0.1 10^3/uL (0.0-0.6); ABSOLUTE LYMPHOCYTES (AUTO) 0.6 10^3/uL (0.5-4.7); ABSOLUTE MONOCYTES (AUTO) 0.7 10^3/uL (0.1-1.4); ABSOLUTE NEUT (AUTO) 7.3 10^3/uL (1.7-8.2); BASOPHILS % (AUTO) 0.7 % (0-2); HEMATOCRIT 30.5 % (36.0-47.0); HEMOGLOBIN 9.7 g/dL (12.0-15.5); LYMPHOCYTES % (AUTO) 7.1 % (13-45); MEAN CORPUSCULAR HEMOGLOBIN 27.1 pg (27.0-33.4); MEAN CORPUSCULAR HGB CONC 31.9 g/dL (32.0-36.0); MEAN CORPUSCULAR VOLUME 85 fl (80-97); MONOCYTES % (AUTO) 7.9 % (3-13); PLATELET COUNT 294 10^3/uL (150-450); RED BLOOD COUNT 3.59 10^6/uL (3.72-5.28); RED CELL DISTRIBUTION WIDTH 16.8 % (11.5-14.0); SEGMENTED NEUTROPHILS % (AUTO) 83.3 % (42-78); TOTAL CELLS COUNTED % (AUTO) 100 %; WHITE BLOOD COUNT 8.8 10^3/uL (4.0-10.5)
[2018-12-28 04:59] LABS: BLOOD UREA NITROGEN 29 mg/dL (7-20); CALCIUM 8.7 mg/dL (8.4-10.2); CHLORIDE 86 mmol/L (98-107); GLUCOSE 97 mg/dL (75-110); POTASSIUM 3.9 mmol/L (3.6-5.0); SODIUM 139.7 mmol/L (137-145)
[2018-12-28 05:14] LABS: ANION GAP 5 (5-19)
[2018-12-28 05:32] LABS: CARBON DIOXIDE 49 mmol/L (22-30)
--- NOTE | 2018-12-28 05:46 | PDOC H&P ---
History of Present Illness Admission Date/PCP: 12/28/18 00:27 SAW MARTINEZ MD Patient complains of: Shortness of breath History of Present Illness: ALBERTO DIAL is a 73 year old female with a past medical history of post polio syndrome, morbid obesity, hypoventilation syndrome, obstructive sleep apnea, pulmonary hypertension, diabetes, diastolic heart failure, opiate dependent chronic pain, hypothyroidism, coronary artery disease with stents and a bedbound state with chronic left leg cellulitis. Patient presents with 12 hours of shortness of breath prompting evaluation in the emergency department. She is found to have a blood glucose of 47, patient is on glyburide and metformin despite repeated A1c less than 7. Patient receives D50 and is other castillo found to have hypothermia, hypoxia and hypercapnia with a venous blood gas of 143. She started on BiPAP and referred to the hospitalist for admission. Echocardiogram October 2018 reveals pulmonary hypertension, moderate aortic regurgitation and diastolic heart failure with preserved ejection fraction. Patient denies chest pain nausea vomiting. She admits to noncompliance with trilogy positive pressure air. Past Medical History Cardiac Medical History: Reports: Congestive Heart Failure - Diastolic, Coronary Artery Disease, Myocardial Infarction - cardiac stents x 2, Hyperlipidema, Hypertension, Heart Murmur - aortic stenosis Denies: DVT, Pulmonary Embolism Pulmonary Medical History: Reports: Asthma, Bronchitis, Chronic Obstructive Pulmonary Disease (COPD), Sleep Apnea - Bipap Denies: Pneumonia, Tuberculosis Neurological Medical History: Denies: Seizures Endocrine Medical History: Reports: Diabetes Mellitus Type 2, Hypothyroidism Denies: Diabetes Mellitus Type 1, Hyperthyroidism GI Medical History: Reports: Gastroesophageal Reflux Disease Denies: Cirrhosis, Hepatitis, Ulcerative Colitis Musculoskeltal Medical History: Reports: Arthritis - generalized Psychiatric Medical History: Reports: Depression Traumatic Medical History: Denies: Traumatic Brain Injury Hematology: Reports: Anemia Infectious Medical History: Denies: HIV Past Surgical History Past Surgical History: Reports: Appendectomy, Colostomy - then reversed, Hysterectomy, Orthopedic Surgery - carpal tunnel, polio surgery to left leg Denies: Pacemaker Social History Information Source: Patient, [facility] Records Smoking Status: Unknown if Ever Smoked Frequency of Alcohol Use: None Hx Recreational Drug Use: No Drugs: None Hx Prescription Drug Abuse: No - Advance Directive Resuscitation Status: Full Code Family History Family History: DM, Hyperlipidemia, Hypertension Parental Family History Reviewed: Yes Children Family History Reviewed: Yes Sibling(s) Family History Reviewed.: Yes Medication/Allergy Home Medications: Aspirin [Ecotrin 81 mg EC Tablet] 81 mg PO DAILY 12/01/18 Atorvastatin Calcium [Lipitor 40 mg Tablet] 40 mg PO QHS 12/01/18 Calcium Citrate/Vitamin D3 [Citracal + D Maximum Caplet] 1 tab PO DAILY 12/01/18 Cetirizine HCl [Zyrtec 10 mg Tablet] 1 tab PO DAILY 12/01/18 Clopidogrel Bisulfate [Plavix 75 mg Tablet] 75 mg PO DAILY 12/01/18 Furosemide [Lasix 40 mg Tablet] 40 mg PO QPM 12/01/18 Furosemide [Lasix 40 mg Tablet] 60 mg PO QAM 12/01/18 Glipizide [Glucotrol 10 mg Tablet] 10 mg PO QAM 12/01/18 Ipratropium/Albuterol Sulfate [Duoneb 3 ml Ampul] 3 ml NEB [id number] PRN 12/01/18 Liothyronine Sodium [Cytomel] 10 mcg PO DAILY 12/01/18 Magnesium Oxide [Mag-Ox 400 mg Tablet] 400 mg PO DAILY 12/01/18 Metformin HCl [Glucophage 500 mg Tablet] 500 mg PO BIDBS 12/01/18 Metoprolol Succinate [Toprol Xl 25 mg Tab.sr] 12.5 mg PO DAILY 12/01/18 Montelukast Sodium [Singulair 10 mg Tablet] 10 mg PO QHS 12/01/18 Nitroglycerin [Nitrostat 0.4 mg (1/150 Gr) Tabs 25/Bottle] 1 tab SL Q5MP PRN 12/01/18 Potassium Chloride [Klor-Con 10 Meq Capsule ER] 30 meq PO DAILY 12/01/18 Rabeprazole Sodium [Aciphex] 20 mg PO Q6AM 12/01/18 Budesonide/Formoterol Fumarate [Symbicort HFA 160-4.5 mcg Inhaler 6 gm] 2 puff IH Q12 30 Days #3 inhaler 12/08/18 Na Phos,M-B/Na Phos,Di-Ba [Fleet Enema (Adult) 133 ml] 1 applic MN DAILYP PRN #1 enema 12/08/18 Ropinirole HCl 1 mg PO QHS 30 Days #30 tablet 12/08/18 Allergies/Adverse Reactions: hydromorphone HCl [From Dilaudid] Allergy (Severe, Verified 12/01/18 04:18) Respiratory arrest codeine [Codeine] Allergy (Intermediate, Verified 12/01/18 04:18) Hallucinations Review of Systems Constitutional: PRESENT: as per HPI, fatigue, weakness. ABSENT: chills, fever(s), headache(s), weight gain, weight loss Eyes: ABSENT: visual disturbances Ears: ABSENT: hearing changes Cardiovascular: PRESENT: as per HPI, dyspnea on exertion, edema. ABSENT: chest pain, orthropnea, palpitations Respiratory: PRESENT: as per HPI, dyspnea. ABSENT: cough, hemoptysis Gastrointestinal: ABSENT: abdominal pain, constipation, diarrhea, hematemesis, hematochezia, nausea, vomiting Genitourinary: ABSENT: dysuria, hematuria Musculoskeletal: ABSENT: joint swelling Integumentary: ABSENT: rash, wounds Neurological: ABSENT: abnormal gait, abnormal speech, confusion, dizziness, focal weakness, syncope Psychiatric: ABSENT: anxiety, depression, homidical ideation, suicidal ideation Endocrine: ABSENT: cold intolerance, heat intolerance, polydipsia, polyuria Hematologic/Lymphatic: ABSENT: easy bleeding, easy bruising Physical Exam Vital Signs: Temp Pulse Resp BP Pulse Ox 98.2 F 61 18 166/52 H 92 12/28/18 02:31 12/28/18 02:31 12/28/18 02:31 12/28/18 02:31 12/28/18 02:31 Intake & Output 12/26/18 12/27/18 12/28/18 11:59 11:59 11:59 Weight 115.7 kg General appearance: PRESENT: cooperative, mild distress, morbidly obese, well- nourished Head exam: PRESENT: atraumatic, normocephalic Eye exam: PRESENT: conjunctiva pink, EOMI, PERRLA. ABSENT: scleral icterus Ear exam: PRESENT: normal external ear exam Mouth exam: PRESENT: moist, tongue midline Neck exam: ABSENT: carotid bruit, JVD, lymphadenopathy, thyromegaly Respiratory exam: PRESENT: accessory muscle use, crackles, decreased breath sounds, prolonged expiratory phas, symmetrical, tachypnea Cardiovascular exam: PRESENT: gallop, RRR, +S1, +S2. ABSENT: diastolic murmur, rubs, systolic murmur Pulses: PRESENT: normal dorsalis pedis pul Vascular exam: PRESENT: normal capillary refill GI/Abdominal exam: PRESENT: normal bowel sounds, soft. ABSENT: distended, guarding, mass, organolmegaly, rebound, tenderness Rectal exam: PRESENT: deferred Extremities exam: PRESENT: full ROM. ABSENT: calf tenderness, clubbing, pedal edema Neurological exam: PRESENT: alert, awake, oriented to person, oriented to place, oriented to time, oriented to situation, CN II-XII grossly intact. ABSENT: motor sensory deficit Psychiatric exam: PRESENT: appropriate affect, normal mood. ABSENT: homicidal ideation, suicidal ideation Skin exam: PRESENT: abrasion Results Laboratory Results: 12/28/18 04:25 12/27/18 12/27/18 12/27/18 21:55 21:55 21:55 WBC 7.9 RBC 3.92 Hgb 10.7 L Hct 33.7 L MCV 86 MCH 27.3 MCHC 31.7 L RDW 17.3 H Plt Count 307 Seg Neutrophils % Not Reportable Lymphocytes % Not Reportable Monocytes % Not Reportable Eosinophils % Not Reportable Basophils % Not Reportable Absolute Neutrophils Not Reportable Absolute Lymphocytes Not Reportable Absolute Monocytes Not Reportable Absolute Eosinophils Not Reportable Absolute Basophils Not Reportable VBG pH VBG pCO2 VBG HCO3 VBG Base Excess Sodium 140.3 Potassium 4.7 Chloride 85 L Carbon Dioxide 48 H* Anion Gap 7 BUN 28 H Creatinine 0.79 Est GFR ( Amer) > 60 Est GFR (Non-Af Amer) > 60 Glucose 121 H Lactic Acid 0.9 Calcium 8.9 Total Bilirubin 0.6 AST 19 ALT 29 Alkaline Phosphatase 69 Total Protein 6.7 Albumin 3.6 Urine Color Urine Appearance Urine pH Ur Specific [place] Urine Protein Urine Glucose (UA) Urine Ketones Urine Blood Urine Nitrite Ur Leukocyte Esterase Urine WBC (Auto) Urine RBC (Auto) 12/27/18 12/27/18 12/28/18 21:55 22:59 04:25 WBC 8.8 RBC 3.59 L Hgb 9.7 L Hct 30.5 L MCV 85 MCH 27.1 MCHC 31.9 L RDW 16.8 H Plt Count 294 Seg Neutrophils % 83.3 H Lymphocytes % 7.1 L Monocytes % 7.9 Eosinophils % 1.0 Basophils % 0.7 Absolute Neutrophils 7.3 Absolute Lymphocytes 0.6 Absolute Monocytes 0.7 Absolute Eosinophils 0.1 Absolute Basophils 0.1 VBG pH 7.20 L VBG pCO2 143.0 H* VBG HCO3 54.4 H VBG Base Excess 20.8 Sodium Potassium Chloride Carbon Dioxide Anion Gap BUN Creatinine Est GFR ( Amer) Est GFR (Non-Af Amer) Glucose Lactic Acid Calcium Total Bilirubin AST ALT Alkaline Phosphatase Total Protein Albumin Urine Color YELLOW Urine Appearance CLEAR Urine pH 5.0 Ur Specific [place] 1.014 Urine Protein NEGATIVE Urine Glucose (UA) NEGATIVE Urine Ketones NEGATIVE Urine Blood NEGATIVE Urine Nitrite NEGATIVE Ur Leukocyte Esterase NEGATIVE Urine WBC (Auto) 1 Urine RBC (Auto) 0 12/27/18 21:55 Troponin I 0.013 NT-Pro-B Natriuret Pep 6540 H Impressions: Chest X-Ray 12/27/18 21:49 IMPRESSION: Pulmonary vascular congestion. Assessment and Plan - Diagnosis (1) Acute and chronic respiratory failure Qualifiers: Respiratory failure complication: hypercapnia Qualified Code(s): J96.22 - Acute and chronic respiratory failure with hypercapnia Is this a current diagnosis for this admission?: Yes Plan: Secondary to pulmonary hypertension, morbid obesity hypoventilation syndrome with hypercapnic respiratory failure, trial of BiPAP in cervical extension. Avoiding narcotics and sedatives causing respiratory depression. Education for use of trilogy (2) Hypoglycemia Is this a current diagnosis for this admission?: Yes Plan: A1c less than 7. Multiple recent episodes of hypoglycemia, discontinue glyburide and metformin with education. (3) Hypothermia Qualifiers: Encounter type: initial encounter Qualified Code(s): T68.XXXA - Hypothermia, initial encounter Is this a current diagnosis for this admission?: Yes Plan: Secondary to hypoglycemia, resolved (4) Acute on chronic diastolic (congestive) heart failure Is this a current diagnosis for this admission?: Yes Plan: Complicated by severe pulmonary hypertension and aortic regurgitation. Optimize blood pressure, ANGELIQUE inhibitor and Norvasc. (5) DNR (do not resuscitate) Is this a current diagnosis for this admission?: Yes Plan: Patient verifies wishes of DNR DNI. - Time Time Spent with patient: 35 or more minutes - Inpatient Certification Medical Necessity: Need Close Monitoring Due to Risk of Patient Decompensation
[2018-12-28] MEDS: HEPARIN SOD (PORCINE) 5,000 UNIT/ML 1 ML SYRINGE SUBCUT SCH ×3 (06:42→21:37)
[2018-12-28 07:33] LABS: ARTERIAL BLOOD FIO2 40%; ARTERIAL BLOOD H2CO3 2.66 mmol/L (1.05-1.35); ARTERIAL BLOOD PO2 70.5 mmHg (80-100); ARTERIAL BLOOD TOTAL CO2 56.7 mmol/L (21-25)
[2018-12-28 07:36] LABS: ARTERIAL BLOOD PCO2 88.4 mmHg (35-45)
[2018-12-28] MEDS: CHLORPHENIRAMINE MALEATE 4 MG TABLET PO SCH ×3 (14:48→21:39)
[2018-12-28] MEDS: FLUTICASONE/VILANTEROL 200-25 MCG/DOSE IH SCH (14:48)
[2018-12-28] MEDS: DOCUSATE SODIUM 100 MG CAPSULE PO SCH ×2 (14:48→18:36)
[2018-12-28] MEDS: MAGNESIUM OXIDE 400 MG TABLET PO SCH (14:49)
[2018-12-28] MEDS: LIOTHYRONINE SODIUM 5 MCG TABLET PO SCH (14:49)
[2018-12-28] MEDS: ASPIRIN 81 MG TABLET, ENT COATED PO SCH (14:49)
[2018-12-28] MEDS: METOPROLOL SUCCINATE 25 MG TAB.SR.24H PO SCH (14:50)
[2018-12-28] MEDS: CETIRIZINE 10 MG TABLET PO SCH (14:50)
[2018-12-28] MEDS: CLOPIDOGREL BISULFATE 75 MG TABLET PO SCH (14:50)
--- NOTE | 2018-12-28 16:14 | Progress Note ---
Provider Note Provider Note: Assumed care. Patient was admitted this morning. This is a 73-year-old female with a PMH of chronic respiratory failure, COPD, on Trilogy at home, CHF, controled DM 2, CAD with prior stenting who presented with increasing SOB. CXR shows pulmonary congestion. On encounter, she says her SOB has improved. Discussed she should be taken off her glipizide due to her hypoglycemic episodes. Her recent Hba1c has been low at 6.6. Discussed compliance with BIPAP. She is on PO lasix at home. Will switch her to IV Lasix for now. I&Os. Repeat BMP and CXR tomorrow.
[2018-12-28] MEDS: FUROSEMIDE INJ/PF 40 MG/4 ML SDV IV SCH (18:25)
[2018-12-28] MEDS: MONTELUKAST SODIUM 10 MG TABLET PO SCH (21:38)
[2018-12-29] MEDS: HEPARIN SOD (PORCINE) 5,000 UNIT/ML 1 ML SYRINGE SUBCUT SCH ×3 (05:06→21:21)
[2018-12-29] MEDS: FUROSEMIDE INJ/PF 40 MG/4 ML SDV IV SCH (05:07)
[2018-12-29 06:30] LABS: ABSOLUTE BASOPHILS # (AUTO) 0.1 10^3/uL (0.0-0.2); ABSOLUTE EOSINOPHILS # (AUTO) 0.2 10^3/uL (0.0-0.6); ABSOLUTE LYMPHOCYTES (AUTO) 1.4 10^3/uL (0.5-4.7); ABSOLUTE MONOCYTES (AUTO) 0.7 10^3/uL (0.1-1.4); ABSOLUTE NEUT (AUTO) 6.5 10^3/uL (1.7-8.2); BASOPHILS % (AUTO) 0.8 % (0-2); EOSINOPHILS % (AUTO) 2.6 % (0-6); HEMATOCRIT 30.8 % (36.0-47.0); LYMPHOCYTES % (AUTO) 15.5 % (13-45); MEAN CORPUSCULAR HEMOGLOBIN 27.4 pg (27.0-33.4); MEAN CORPUSCULAR HGB CONC 32.6 g/dL (32.0-36.0); MEAN CORPUSCULAR VOLUME 84 fl (80-97); MONOCYTES % (AUTO) 8.3 % (3-13); PLATELET COUNT 305 10^3/uL (150-450); RED BLOOD COUNT 3.67 10^6/uL (3.72-5.28); RED CELL DISTRIBUTION WIDTH 17.5 % (11.5-14.0); SEGMENTED NEUTROPHILS % (AUTO) 72.8 % (42-78); TOTAL CELLS COUNTED % (AUTO) 100 %
[2018-12-29 06:46] LABS: BLOOD UREA NITROGEN 19 mg/dL (7-20); CALCIUM 8.9 mg/dL (8.4-10.2); CHLORIDE 84 mmol/L (98-107); GLUCOSE 75 mg/dL (75-110); POTASSIUM 3.9 mmol/L (3.6-5.0); SODIUM 139.1 mmol/L (137-145)
[2018-12-29 07:10] LABS: ANION GAP 7 (5-19)
[2018-12-29 07:11] LABS: CARBON DIOXIDE 48 mmol/L (22-30)
[2018-12-29] MEDS ORDERED: IPRATROPIUM/ALBUTEROL 0.5-2.5 MG/3 ML AMPUL NEB PRN (08:27)
[2018-12-29] MEDS ORDERED: NITROGLYCERIN 0.4 MG/TAB 25 TAB/BOTTLE SL PRN (08:27)
[2018-12-29] MEDS ORDERED: (PENDING PHARMACY ID) (Rabeprazole Sodium [Aciphex] 20 MG) PO SCH (08:30)
[2018-12-29] MEDS ORDERED: ATORVASTATIN CALCIUM 40 MG TABLET PO SCH (08:30)
[2018-12-29] MEDS ORDERED: (PENDING PHARMACY ID) (Ropinirole Hcl [Requip] 1 MG) PO SCH (08:30)
--- NOTE | 2018-12-29 08:55 | RADIOLOGY REPORT (SQ) ---
EXAM DESCRIPTION: CHEST SINGLE VIEW COMPLETED DATE/TIME: 12/29/2018 7:57 am REASON FOR STUDY: reassess congestion COMPARISON: Chest films 12/27/2018, 12/02/2018, 09/24/2018, CT chest 11/11/2017 EXAM PARAMETERS: NUMBER OF VIEWS: One view. TECHNIQUE: Single frontal radiographic view of the chest acquired. RADIATION DOSE: NA LIMITATIONS: None. FINDINGS: LUNGS AND PLEURA: No opacities, masses or pneumothorax. No pleural effusion. MEDIASTINUM AND HILAR STRUCTURES: No masses. Contour normal. HEART AND VASCULAR STRUCTURES: Heart normal in size. Normal vasculature. BONES: Convex leftward midthoracic curvature HARDWARE: None in the chest. OTHER: No other significant finding. IMPRESSION: Convex leftward midthoracic scoliosis. No acute infiltrates. No cardiomegaly TECHNICAL DOCUMENTATION: JOB ID: [id number]- All Rights Reserved Reading location - IP/workstation name: [email or web address]
[2018-12-29 09:25] LABS: ABSOLUTE BASOPHILS # (AUTO) 0.1 10^3/uL (0.0-0.2); ABSOLUTE EOSINOPHILS # (AUTO) 0.2 10^3/uL (0.0-0.6); ABSOLUTE LYMPHOCYTES (AUTO) 1.1 10^3/uL (0.5-4.7); ABSOLUTE MONOCYTES (AUTO) 0.5 10^3/uL (0.1-1.4); ABSOLUTE NEUT (AUTO) 5.5 10^3/uL (1.7-8.2); EOSINOPHILS % (AUTO) 2.8 % (0-6); HEMATOCRIT 32.2 % (36.0-47.0); HEMOGLOBIN 10.4 g/dL (12.0-15.5); LYMPHOCYTES % (AUTO) 14.5 % (13-45); MEAN CORPUSCULAR HEMOGLOBIN 27.1 pg (27.0-33.4); MEAN CORPUSCULAR HGB CONC 32.4 g/dL (32.0-36.0); MEAN CORPUSCULAR VOLUME 84 fl (80-97); MONOCYTES % (AUTO) 7.3 % (3-13); PLATELET COUNT 297 10^3/uL (150-450); RED BLOOD COUNT 3.86 10^6/uL (3.72-5.28); RED CELL DISTRIBUTION WIDTH 17.5 % (11.5-14.0); SEGMENTED NEUTROPHILS % (AUTO) 74.4 % (42-78); TOTAL CELLS COUNTED % (AUTO) 100 %; WHITE BLOOD COUNT 7.3 10^3/uL (4.0-10.5)
[2018-12-29] MEDS: DOCUSATE SODIUM 100 MG CAPSULE PO SCH ×2 (09:27→17:04)
[2018-12-29] MEDS: LOSARTAN POTASSIUM 25 MG TABLET PO SCH ×2 (09:27→21:21)
[2018-12-29] MEDS: CETIRIZINE 10 MG TABLET PO SCH (09:27)
[2018-12-29] MEDS: LIOTHYRONINE SODIUM 5 MCG TABLET PO SCH (09:30)
[2018-12-29] MEDS: ASPIRIN 81 MG TABLET, ENT COATED PO SCH (09:30)
[2018-12-29] MEDS: CLOPIDOGREL BISULFATE 75 MG TABLET PO SCH (09:30)
[2018-12-29] MEDS: FLUTICASONE NASAL SPRAY 50 MCG/SPRY 120 SPRAY/16 GM NASL SCH ×2 (09:30→21:21)
[2018-12-29] MEDS: METOPROLOL SUCCINATE 25 MG TAB.SR.24H PO SCH (09:30)
[2018-12-29] MEDS: AMLODIPINE BESYLATE 2.5 MG TABLET PO SCH (09:30)
[2018-12-29] MEDS: MAGNESIUM OXIDE 400 MG TABLET PO SCH (09:30)
[2018-12-29 09:56] LABS: ALANINE AMINOTRANSFERASE 21 U/L (9-52); ALBUMIN 3.2 g/dL (3.5-5.0); ALKALINE PHOSPHATASE 62 U/L (38-126); ASPARTATE AMINO TRANSFERASE 17 U/L (14-36); BILIRUBIN,DIRECT 0.3 mg/dL (0.0-0.4); BILIRUBIN,TOTAL 0.7 mg/dL (0.2-1.3); BLOOD UREA NITROGEN 18 mg/dL (7-20); CALCIUM 8.8 mg/dL (8.4-10.2); CHLORIDE 83 mmol/L (98-107); GLUCOSE 149 mg/dL (75-110); POTASSIUM 3.4 mmol/L (3.6-5.0); SODIUM 139.6 mmol/L (137-145)
[2018-12-29] MEDS ORDERED: ASPIRIN 81 MG TABLET, ENT COATED PO SCH (10:00)
[2018-12-29] MEDS ORDERED: CLOPIDOGREL BISULFATE 75 MG TABLET PO SCH (10:00)
[2018-12-29] MEDS ORDERED: CALCIUM CITRATE PO SCH (10:00)
[2018-12-29] MEDS ORDERED: CETIRIZINE 10 MG TABLET PO SCH (10:00)
[2018-12-29] MEDS ORDERED: (PENDING PHARMACY ID) (Liothyronine Sodium [Cytomel] 10 MCG) PO SCH (10:00)
[2018-12-29] MEDS ORDERED: VITAMIN D3 PO SCH (10:00)
[2018-12-29] MEDS ORDERED: MAGNESIUM OXIDE 400 MG TABLET PO SCH (10:00)
[2018-12-29] MEDS ORDERED: METOPROLOL SUCCINATE 25 MG TAB.SR.24H PO SCH (10:00)
[2018-12-29 10:13] LABS: ANION GAP 7 (5-19)
[2018-12-29 10:17] LABS: CARBON DIOXIDE 50 mmol/L (22-30)
[2018-12-29] MEDS: IPRATROPIUM/ALBUTEROL 0.5-2.5 MG/3 ML AMPUL NEB PRN (11:49)
[2018-12-29] MEDS: FLUTICASONE/VILANTEROL 200-25 MCG/DOSE IH SCH ×2 (12:01→12:02)
[2018-12-29] MEDS: CALCIUM CARBONATE 250 MG/VITAMIN D3 125 UNIT TABLET PO SCH (12:01)
[2018-12-29] MEDS: PANTOPRAZOLE SODIUM 20 MG TABLET.DR PO SCH (12:01)
--- NOTE | 2018-12-29 13:27 | PDOC PROGRESS REPORT ---
Subjective Progress Note for:: 12/29/18 Subjective:: 73 year old female with a past medical history of post polio syndrome, morbid obesity, hypoventilation syndrome, obstructive sleep apnea, pulmonary hypertension, diabetes, diastolic heart failure, opiate dependent chronic pain, hypothyroidism, coronary artery disease with stents and a bedbound state with chronic left leg cellulitis. Patient presents with 12 hours of shortness of breath prompting evaluation in the emergency department. She is found to have a blood glucose of 47, patient is on glyburide and metformin despite repeated A1c less than 7. Patient receives D50 and is otherwise found to have hypothermia, hypoxia and hypercapnia with a venous blood gas of 143. She started on BiPAP and referred to the hospitalist for admission. Echocardiogram October 2018 reveals pulmonary hypertension, moderate aortic regurgitation and diastolic heart failure with preserved ejection fraction. Patient denies chest pain nausea vomiting. She admits to noncompliance with trilogy positive pressure air. 12/29/[id number]-old female with history of multiple medical problems including morbid obesity, hypoventilation syndrome, obstructive sleep apnea, pulmonary hypertension chronic diastolic heart failure chronic pain dependent see, hypothyroidism, carotid disease with stent placements, bedbound status admitted for shortness of breath requiring BiPAP. Her PCO2 in the ER is 143. It was improved to 48 this morning patient wants to be noncompliant with her BiPAP. Requesting to take off the BiPAP wants to eat 1 to drink appetite explained to her that pulse oxes are dropping without BiPAP she needs to be on it at least another 48 hours she reluctantly agreed but requesting for sips of water once in a while. Reason For Visit: HYPERCAPNIC RESP FAILURE,DIASTOLIC HF Physical Exam Vital Signs: Temp Pulse Resp BP Pulse Ox 98.0 F 52 L 26 H 137/45 H 100 12/29/18 11:22 12/29/18 11:49 12/29/18 12:10 12/29/18 11:22 12/29/18 11:49 Intake & Output 12/28/18 12/29/18 12/30/18 06:59 06:59 06:59 Intake Total 697 Output Total 3800 Balance -3103 Weight 115.7 kg 112.9 kg General appearance: PRESENT: other - moderate distress Head exam: PRESENT: atraumatic Eye exam: PRESENT: PERRLA Mouth exam: PRESENT: moist, tongue midline Neck exam: ABSENT: carotid bruit, JVD, lymphadenopathy, thyromegaly Respiratory exam: PRESENT: decreased breath sounds Cardiovascular exam: PRESENT: tachycardia GI/Abdominal exam: PRESENT: normal bowel sounds, soft. ABSENT: distended, guarding, mass, organolmegaly, rebound, tenderness Rectal exam: PRESENT: deferred Gentrourinary exam: PRESENT: indwelling catheter Extremities exam: PRESENT: full ROM. ABSENT: calf tenderness, clubbing, pedal edema Neurological exam: PRESENT: alert, awake, oriented to person, oriented to place, oriented to time, oriented to situation, CN II-XII grossly intact. ABSENT: motor sensory deficit Psychiatric exam: PRESENT: agitated. ABSENT: homicidal ideation, suicidal ideation Results Laboratory Results: 12/29/18 09:05 12/29/18 09:05 12/29/18 12/29/18 12/29/18 05:36 05:36 09:05 WBC 9.0 7.3 RBC 3.67 L 3.86 Hgb 10.0 L 10.4 L Hct 30.8 L 32.2 L MCV 84 84 MCH 27.4 27.1 MCHC 32.6 32.4 RDW 17.5 H 17.5 H Plt Count 305 297 Seg Neutrophils % 72.8 74.4 Lymphocytes % 15.5 14.5 Monocytes % 8.3 7.3 Eosinophils % 2.6 2.8 Basophils % 0.8 1.0 Absolute Neutrophils 6.5 5.5 Absolute Lymphocytes 1.4 1.1 Absolute Monocytes 0.7 0.5 Absolute Eosinophils 0.2 0.2 Absolute Basophils 0.1 0.1 Sodium 139.1 Potassium 3.9 Chloride 84 L Carbon Dioxide 48 H* Anion Gap 7 BUN 19 Creatinine 0.54 Est GFR ( Amer) > 60 Est GFR (Non-Af Amer) > 60 Glucose 75 Calcium 8.9 Magnesium 1.9 Total Bilirubin AST ALT Alkaline Phosphatase Total Protein Albumin 12/29/18 09:05 WBC RBC Hgb Hct MCV MCH MCHC RDW Plt Count Seg Neutrophils % Lymphocytes % Monocytes % Eosinophils % Basophils % Absolute Neutrophils Absolute Lymphocytes Absolute Monocytes Absolute Eosinophils Absolute Basophils Sodium 139.6 Potassium 3.4 L Chloride 83 L Carbon Dioxide 50 H* Anion Gap 7 BUN 18 Creatinine 0.60 Est GFR ( Amer) > 60 Est GFR (Non-Af Amer) > 60 Glucose 149 H Calcium 8.8 Magnesium 1.8 Total Bilirubin 0.7 AST 17 ALT 21 Alkaline Phosphatase 62 Total Protein 6.0 L Albumin 3.2 L 12/27/18 21:55 Troponin I 0.013 NT-Pro-B Natriuret Pep 6540 H Impressions: Chest X-Ray 12/29/18 07:00 IMPRESSION: Convex leftward midthoracic scoliosis. No acute infiltrates. No cardiomegaly Assessment and Plan - Diagnosis (1) Acute and chronic respiratory failure Qualifiers: Respiratory failure complication: hypercapnia Qualified Code(s): J96.22 - Acute and chronic respiratory failure with hypercapnia Is this a current diagnosis for this admission?: Yes Plan: Secondary to pulmonary hypertension, morbid obesity hypoventilation syndrome with hypercapnic respiratory failure, trial of BiPAP in cervical extension. Avoiding narcotics and sedatives causing respiratory depression. Education for use of trilogy 12/29/2018-patient was admitted for acute on chronic respiratory failure with retention of CO2 most likely secondary to hypoventilation syndrome. On admission PCO2 is 143 improved to 48 2 this morning with BiPAP. Pulmonary consult is going to be requested. Plan is to continue the BiPAP and nebulizer treatments. (2) Hypoglycemia Is this a current diagnosis for this admission?: Yes Plan: A1c less than 7. Multiple recent episodes of hypoglycemia, discontinue glyburide and metformin with education. 12/29/2018-patient's latest blood sugar is 75. Glyburide and metformin on hold. (3) Hypothermia Qualifiers: Encounter type: initial encounter Qualified Code(s): T68.XXXA - Hypothermia, initial encounter Is this a current diagnosis for this admission?: Yes Plan: Secondary to hypoglycemia, resolved 12/29/2018-hypothermia most likely secondary to hypoglycemia is resolved. Te mperature today is 98.2. (4) Acute on chronic diastolic (congestive) heart failure Is this a current diagnosis for this admission?: Yes Plan: Complicated by severe pulmonary hypertension and aortic regurgitation. Optimize blood pressure, ANGELIQUE inhibitor and Norvasc. 12/29/2018-patient has history of pulmonary hypertension, aortic regurgitation. She is also has history of chronic diastolic heart failure. Admitted with acute on chronic diastolic heart failure. Chest x-ray does not show evidence of fluid overload but cardiomegaly. Currently on Lasix 40 mg every 12 hours. Plan to decrease the Lasix to 40 mg IV once a day. (5) DNR (do not resuscitate) Is this a current diagnosis for this admission?: Yes - Time Time Spent with patient: 15-24 minutes Medications reviewed and adjusted accordingly: Yes Anticipated discharge: Home
[2018-12-29] MEDS: POTASSIUM CHLORIDE 10 MEQ CAPSULE.ER PO SCH (14:58)
[2018-12-29] MEDS ORDERED: MONTELUKAST SODIUM 10 MG TABLET PO SCH (18:00)
[2018-12-29] MEDS: LORAZEPAM 0.5 MG TABLET PO PRN (21:22)
[2018-12-29] MEDS: MONTELUKAST SODIUM 10 MG TABLET PO SCH (21:22)
[2018-12-29] MEDS: ATORVASTATIN CALCIUM 40 MG TABLET PO SCH (21:22)
[2018-12-29] MEDS: ROPINIROLE HCL 1 MG TABLET PO SCH (21:22)
[2018-12-30] MEDS: HEPARIN SOD (PORCINE) 5,000 UNIT/ML 1 ML SYRINGE SUBCUT SCH ×3 (06:15→22:06)
[2018-12-30] MEDS: PANTOPRAZOLE SODIUM 20 MG TABLET.DR PO SCH (06:15)
[2018-12-30 08:37] LABS: ABSOLUTE BASOPHILS # (AUTO) 0.1 10^3/uL (0.0-0.2); ABSOLUTE EOSINOPHILS # (AUTO) 0.3 10^3/uL (0.0-0.6); ABSOLUTE LYMPHOCYTES (AUTO) 1.2 10^3/uL (0.5-4.7); ABSOLUTE MONOCYTES (AUTO) 0.6 10^3/uL (0.1-1.4); ABSOLUTE NEUT (AUTO) 4.7 10^3/uL (1.7-8.2); BASOPHILS % (AUTO) 1.2 % (0-2); EOSINOPHILS % (AUTO) 3.8 % (0-6); HEMATOCRIT 33.5 % (36.0-47.0); HEMOGLOBIN 10.9 g/dL (12.0-15.5); LYMPHOCYTES % (AUTO) 18.1 % (13-45); MEAN CORPUSCULAR HEMOGLOBIN 27.1 pg (27.0-33.4); MEAN CORPUSCULAR HGB CONC 32.4 g/dL (32.0-36.0); MEAN CORPUSCULAR VOLUME 84 fl (80-97); MONOCYTES % (AUTO) 8.4 % (3-13); PLATELET COUNT 306 10^3/uL (150-450); RED CELL DISTRIBUTION WIDTH 17.3 % (11.5-14.0); SEGMENTED NEUTROPHILS % (AUTO) 68.5 % (42-78); TOTAL CELLS COUNTED % (AUTO) 100 %; WHITE BLOOD COUNT 6.8 10^3/uL (4.0-10.5)
[2018-12-30 09:00] LABS: ALANINE AMINOTRANSFERASE 23 U/L (9-52); ALBUMIN 3.4 g/dL (3.5-5.0); ALKALINE PHOSPHATASE 60 U/L (38-126); ASPARTATE AMINO TRANSFERASE 23 U/L (14-36); BILIRUBIN,DIRECT 0.4 mg/dL (0.0-0.4); BLOOD UREA NITROGEN 17 mg/dL (7-20); CALCIUM 8.8 mg/dL (8.4-10.2); CHLORIDE 82 mmol/L (98-107); GLUCOSE 102 mg/dL (75-110); POTASSIUM 3.6 mmol/L (3.6-5.0); SODIUM 138.3 mmol/L (137-145); TOTAL PROTEIN 6.3 g/dL (6.3-8.2)
[2018-12-30] MEDS: POTASSIUM CHLORIDE 10 MEQ CAPSULE.ER PO SCH (09:01)
[2018-12-30] MEDS: LIOTHYRONINE SODIUM 5 MCG TABLET PO SCH (09:03)
[2018-12-30] MEDS: CALCIUM CARBONATE 250 MG/VITAMIN D3 125 UNIT TABLET PO SCH (09:03)
[2018-12-30] MEDS: METOPROLOL SUCCINATE 25 MG TAB.SR.24H PO SCH (09:04)
[2018-12-30] MEDS: LOSARTAN POTASSIUM 25 MG TABLET PO SCH ×2 (09:04→22:06)
[2018-12-30] MEDS: AMLODIPINE BESYLATE 2.5 MG TABLET PO SCH (09:05)
[2018-12-30] MEDS: DOCUSATE SODIUM 100 MG CAPSULE PO SCH ×2 (09:05→17:20)
[2018-12-30] MEDS: LORAZEPAM 0.5 MG TABLET PO PRN ×2 (09:06→22:05)
[2018-12-30] MEDS: CLOPIDOGREL BISULFATE 75 MG TABLET PO SCH (09:06)
[2018-12-30] MEDS: ASPIRIN 81 MG TABLET, ENT COATED PO SCH (09:07)
[2018-12-30] MEDS: CETIRIZINE 10 MG TABLET PO SCH (09:07)
[2018-12-30] MEDS: FLUTICASONE/VILANTEROL 200-25 MCG/DOSE IH SCH (09:11)
[2018-12-30] MEDS: FLUTICASONE NASAL SPRAY 50 MCG/SPRY 120 SPRAY/16 GM NASL SCH ×2 (09:12→22:06)
[2018-12-30] MEDS: FUROSEMIDE INJ/PF 40 MG/4 ML SDV IV SCH (09:13)
[2018-12-30] MEDS: MAGNESIUM OXIDE 400 MG TABLET PO SCH (09:14)
[2018-12-30 09:38] LABS: ANION GAP 8 (5-19); CARBON DIOXIDE 48 mmol/L (22-30)
--- NOTE | 2018-12-30 10:13 | PDOC PROGRESS REPORT ---
Subjective Progress Note for:: 12/30/18 Subjective:: 73 year old female with a past medical history of post polio syndrome, morbid obesity, hypoventilation syndrome, obstructive sleep apnea, pulmonary hypertension, diabetes, diastolic heart failure, opiate dependent chronic pain, hypothyroidism, coronary artery disease with stents and a bedbound state with chronic left leg cellulitis. Patient presents with 12 hours of shortness of breath prompting evaluation in the emergency department. She is found to have a blood glucose of 47, patient is on glyburide and metformin despite repeated A1c less than 7. Patient receives D50 and is otherwise found to have hypothermia, hypoxia and hypercapnia with a venous blood gas of 143. She started on BiPAP and referred to the hospitalist for admission. Echocardiogram October 2018 reveals pulmonary hypertension, moderate aortic regurgitation and diastolic heart failure with preserved ejection fraction. Patient denies chest pain nausea vomiting. She admits to noncompliance with trilogy positive pressure air. 12/29/[id number]-dmvy-old female with history of multiple medical problems including morbid obesity, hypoventilation syndrome, obstructive sleep apnea, pulmonary hypertension chronic diastolic heart failure chronic pain dependent see, hypothyroidism, carotid disease with stent placements, bedbound status admitted for shortness of breath requiring BiPAP. Her PCO2 in the ER is 143. It was improved to 48 this morning patient wants to be noncompliant with her BiPAP. Requesting to take off the BiPAP wants to eat 1 to drink appetite explained to her that pulse oxes are dropping without BiPAP she needs to be on it at least another 48 hours she reluctantly agreed but requesting for sips of water once in a while. 12/30/2018-no acute events in the last 24 hours. Patient is compliant with BiPAP. PCO2 this morning is 48. Comfortably in the bed communicating well. She wants to see Dr. Sanders during the hospital stay. Pulse ox is 100% on 5 L. Reason For Visit: HYPERCAPNIC RESP FAILURE,DIASTOLIC HF Physical Exam Vital Signs: Temp Pulse Resp BP Pulse Ox 97.8 F 64 24 H 124/35 L 99 12/30/18 08:49 12/30/18 08:49 12/30/18 08:49 12/30/18 08:49 12/30/18 08:49 Intake & Output 12/29/18 12/30/18 12/31/18 06:59 06:59 06:59 Intake Total 697 1494 Output Total 3800 1200 Balance -3103 294 Weight 112.9 kg 111.5 kg General appearance: PRESENT: morbidly obese Head exam: PRESENT: atraumatic Eye exam: PRESENT: PERRLA Mouth exam: PRESENT: moist, tongue midline Neck exam: ABSENT: carotid bruit, JVD, lymphadenopathy, thyromegaly Respiratory exam: PRESENT: decreased breath sounds Cardiovascular exam: PRESENT: RRR. ABSENT: diastolic murmur, rubs, systolic murmur GI/Abdominal exam: PRESENT: normal bowel sounds, soft. ABSENT: distended, guarding, mass, organolmegaly, rebound, tenderness Rectal exam: PRESENT: deferred Extremities exam: PRESENT: full ROM. ABSENT: calf tenderness, clubbing, pedal edema Neurological exam: PRESENT: alert, awake, oriented to person, oriented to place, oriented to time, oriented to situation, CN II-XII grossly intact. ABSENT: motor sensory deficit Psychiatric exam: PRESENT: appropriate affect, normal mood. ABSENT: homicidal ideation, suicidal ideation Results Laboratory Results: 12/30/18 08:29 12/30/18 08:29 12/29/18 12/30/18 12/30/18 09:05 08:29 08:29 WBC 6.8 RBC 4.00 Hgb 10.9 L Hct 33.5 L MCV 84 MCH 27.1 MCHC 32.4 RDW 17.3 H Plt Count 306 Seg Neutrophils % 68.5 Lymphocytes % 18.1 Monocytes % 8.4 Eosinophils % 3.8 Basophils % 1.2 Absolute Neutrophils 4.7 Absolute Lymphocytes 1.2 Absolute Monocytes 0.6 Absolute Eosinophils 0.3 Absolute Basophils 0.1 Sodium 139.6 138.3 Potassium 3.4 L 3.6 Chloride 83 L 82 L Carbon Dioxide 50 H* 48 H* Anion Gap 7 8 BUN 18 17 Creatinine 0.60 0.49 L Est GFR ( Amer) > 60 > 60 Est GFR (Non-Af Amer) > 60 > 60 Glucose 149 H 102 Calcium 8.8 8.8 Magnesium 1.8 1.9 Total Bilirubin 0.7 1.0 AST 17 23 ALT 21 23 Alkaline Phosphatase 62 60 Total Protein 6.0 L 6.3 Albumin 3.2 L 3.4 L 12/27/18 21:55 Troponin I 0.013 NT-Pro-B Natriuret Pep 6540 H Impressions: Chest X-Ray 12/29/18 07:00 IMPRESSION: Convex leftward midthoracic scoliosis. No acute infiltrates. No cardiomegaly Assessment and Plan - Diagnosis (1) Acute and chronic respiratory failure Qualifiers: Respiratory failure complication: hypercapnia Qualified Code(s): J96.22 - Acute and chronic respiratory failure with hypercapnia Is this a current diagnosis for this admission?: Yes Plan: Secondary to pulmonary hypertension, morbid obesity hypoventilation syndrome with hypercapnic respiratory failure, trial of BiPAP in cervical extension. Avoiding narcotics and sedatives causing respiratory depression. Education for use of trilogy 12/29/2018-patient was admitted for acute on chronic respiratory failure with retention of CO2 most likely secondary to hypoventilation syndrome. On admission PCO2 is 143 improved to 48 2 this morning with BiPAP. Pulmonary consult is going to be requested. Plan is to continue the BiPAP and nebulizer treatments. 12/30/2018-patient admitted with acute on chronic respiratory failure with hypercapnia. PCO2 this morning is 48. Patient on BiPAP on 5 L oxygen pulse ox is 100% today. Chest bilateral entry was decreased no wheezing no crepitations. Plan is to continue the BiPAP PRN and nebulizer treatments and oxygen supplementation. Consult was placed for Dr. Sanders. The blood cultures so far negative. (2) Hypoglycemia Is this a current diagnosis for this admission?: Yes Plan: A1c less than 7. Multiple recent episodes of hypoglycemia, discontinue glyburide and metformin with education. 12/29/2018-patient's latest blood sugar is 75. Glyburide and metformin on hold. 12/30/2018-patient's latest blood sugar is 102. Presently on insulin sliding scale and glyburide and metformin are on hold. (3) Hypothermia Qualifiers: Encounter type: initial encounter Qualified Code(s): T68.XXXA - Hypothermia, initial encounter Is this a current diagnosis for this admission?: Yes Plan: Secondary to hypoglycemia, resolved 12/29/2018-hypothermia most likely secondary to hypoglycemia is resolved. Temperature today is 98.2. (4) Acute on chronic diastolic (congestive) heart failure Is this a current diagnosis for this admission?: Yes Plan: Complicated by severe pulmonary hypertension and aortic regurgitation. Optimize blood pressure, ANGELIQUE inhibitor and Norvasc. 12/29/2018-patient has history of pulmonary hypertension, aortic regurgitation. She is also has history of chronic diastolic heart failure. Admitted with acute on chronic diastolic heart failure. Chest x-ray does not show evidence of fluid overload but cardiomegaly. Currently on Lasix 40 mg every 12 hours. Plan to decrease the Lasix to 40 mg IV once a day. 12/30/2018-patient has history of morbid obesity, pulmonary hypertension, aortic regurgitation. She also has history of chronic diastolic heart failure. Chest x-ray shows cardiomegaly but no fluid overload. Present on Lasix 20 mg once a day. Blood pressure today is 150/48 is stable. Plan is to continue the present management. (5) DNR (do not resuscitate) Is this a current diagnosis for this admission?: Yes - Time Time Spent with patient: 25-34 minutes Medications reviewed and adjusted accordingly: Yes Anticipated discharge: Home
[2018-12-30] MEDS: IPRATROPIUM/ALBUTEROL 0.5-2.5 MG/3 ML AMPUL NEB PRN (12:07)
[2018-12-30] MEDS: MONTELUKAST SODIUM 10 MG TABLET PO SCH (22:05)
[2018-12-30] MEDS: ROPINIROLE HCL 1 MG TABLET PO SCH (22:05)
[2018-12-30] MEDS: ATORVASTATIN CALCIUM 40 MG TABLET PO SCH (22:06)
[2018-12-31 05:31] LABS: ABSOLUTE BASOPHILS # (AUTO) 0.1 10^3/uL (0.0-0.2); ABSOLUTE EOSINOPHILS # (AUTO) 0.3 10^3/uL (0.0-0.6); ABSOLUTE LYMPHOCYTES (AUTO) 1.1 10^3/uL (0.5-4.7); ABSOLUTE MONOCYTES (AUTO) 0.6 10^3/uL (0.1-1.4); ABSOLUTE NEUT (AUTO) 4.6 10^3/uL (1.7-8.2); BASOPHILS % (AUTO) 0.9 % (0-2); EOSINOPHILS % (AUTO) 3.9 % (0-6); HEMATOCRIT 31.8 % (36.0-47.0); HEMOGLOBIN 10.2 g/dL (12.0-15.5); LYMPHOCYTES % (AUTO) 16.3 % (13-45); MEAN CORPUSCULAR HEMOGLOBIN 27.1 pg (27.0-33.4); MEAN CORPUSCULAR HGB CONC 32.2 g/dL (32.0-36.0); MEAN CORPUSCULAR VOLUME 84 fl (80-97); MONOCYTES % (AUTO) 9.5 % (3-13); PLATELET COUNT 273 10^3/uL (150-450); RED BLOOD COUNT 3.78 10^6/uL (3.72-5.28); RED CELL DISTRIBUTION WIDTH 17.8 % (11.5-14.0); SEGMENTED NEUTROPHILS % (AUTO) 69.4 % (42-78); TOTAL CELLS COUNTED % (AUTO) 100 %; WHITE BLOOD COUNT 6.7 10^3/uL (4.0-10.5)
[2018-12-31 05:55] LABS: ALANINE AMINOTRANSFERASE 21 U/L (9-52); ALBUMIN 3.1 g/dL (3.5-5.0); ALKALINE PHOSPHATASE 55 U/L (38-126); ASPARTATE AMINO TRANSFERASE 17 U/L (14-36); BILIRUBIN,DIRECT 0.3 mg/dL (0.0-0.4); BILIRUBIN,TOTAL 0.5 mg/dL (0.2-1.3); BLOOD UREA NITROGEN 25 mg/dL (7-20); CALCIUM 8.8 mg/dL (8.4-10.2); CHLORIDE 83 mmol/L (98-107); GLUCOSE 154 mg/dL (75-110); POTASSIUM 4.2 mmol/L (3.6-5.0); TOTAL PROTEIN 5.8 g/dL (6.3-8.2)
[2018-12-31] MEDS: HEPARIN SOD (PORCINE) 5,000 UNIT/ML 1 ML SYRINGE SUBCUT SCH ×3 (05:57→22:15)
[2018-12-31] MEDS: PANTOPRAZOLE SODIUM 20 MG TABLET.DR PO SCH (05:57)
[2018-12-31 06:04] LABS: ANION GAP 7 (5-19)
[2018-12-31 06:07] LABS: CARBON DIOXIDE 46 mmol/L (22-30)
[2018-12-31] MEDS: IPRATROPIUM/ALBUTEROL 0.5-2.5 MG/3 ML AMPUL NEB PRN ×2 (08:46→15:49)
[2018-12-31] MEDS: FLUTICASONE/VILANTEROL 200-25 MCG/DOSE IH SCH (09:10)
[2018-12-31] MEDS: MAGNESIUM OXIDE 400 MG TABLET PO SCH (09:10)
[2018-12-31] MEDS: POTASSIUM CHLORIDE 10 MEQ CAPSULE.ER PO SCH (09:10)
[2018-12-31] MEDS: FUROSEMIDE INJ/PF 40 MG/4 ML SDV IV SCH (09:10)
[2018-12-31] MEDS: LIOTHYRONINE SODIUM 5 MCG TABLET PO SCH (09:10)
[2018-12-31] MEDS: FLUTICASONE NASAL SPRAY 50 MCG/SPRY 120 SPRAY/16 GM NASL SCH ×2 (09:10→22:14)
[2018-12-31] MEDS: DOCUSATE SODIUM 100 MG CAPSULE PO SCH ×2 (09:11→17:03)
[2018-12-31] MEDS: CETIRIZINE 10 MG TABLET PO SCH (09:11)
[2018-12-31] MEDS: AMLODIPINE BESYLATE 2.5 MG TABLET PO SCH (09:11)
[2018-12-31] MEDS: CLOPIDOGREL BISULFATE 75 MG TABLET PO SCH (09:11)
[2018-12-31] MEDS: ASPIRIN 81 MG TABLET, ENT COATED PO SCH (09:11)
[2018-12-31] MEDS: CALCIUM CARBONATE 250 MG/VITAMIN D3 125 UNIT TABLET PO SCH (09:11)
[2018-12-31] MEDS: LOSARTAN POTASSIUM 25 MG TABLET PO SCH ×2 (09:11→22:14)
[2018-12-31] MEDS: METOPROLOL SUCCINATE 25 MG TAB.SR.24H PO SCH (09:12)
--- NOTE | 2018-12-31 10:02 | PDOC PROGRESS REPORT ---
Subjective Progress Note for:: 12/31/18 Subjective:: 73 year old female with a past medical history of post polio syndrome, morbid obesity, hypoventilation syndrome, obstructive sleep apnea, pulmonary hypertension, diabetes, diastolic heart failure, opiate dependent chronic pain, hypothyroidism, coronary artery disease with stents and a bedbound state with chronic left leg cellulitis. Patient presents with 12 hours of shortness of breath prompting evaluation in the emergency department. She is found to have a blood glucose of 47, patient is on glyburide and metformin despite repeated A1c less than 7. Patient receives D50 and is otherwise found to have hypothermia, hypoxia and hypercapnia with a venous blood gas of 143. She started on BiPAP and referred to the hospitalist for admission. Echocardiogram October 2018 reveals pulmonary hypertension, moderate aortic regurgitation and diastolic heart failure with preserved ejection fraction. Patient denies chest pain nausea vomiting. She admits to noncompliance with trilogy positive pressure air. 12/29/[id number]-jdka-old female with history of multiple medical problems including morbid obesity, hypoventilation syndrome, obstructive sleep apnea, pulmonary hypertension chronic diastolic heart failure chronic pain dependent see, hypothyroidism, carotid disease with stent placements, bedbound status admitted for shortness of breath requiring BiPAP. Her PCO2 in the ER is 143. It was improved to 48 this morning patient wants to be noncompliant with her BiPAP. Requesting to take off the BiPAP wants to eat 1 to drink appetite explained to her that pulse oxes are dropping without BiPAP she needs to be on it at least another 48 hours she reluctantly agreed but requesting for sips of water once in a while. 12/30/2018-no acute events in the last 24 hours. Patient is compliant with BiPAP. PCO2 this morning is 48. Comfortably in the bed communicating well. She wants to see Dr. Sanders during the hospital stay. Pulse ox is 100% on 5 L. 12/31/2018-no acute events in the last 24 hours. Patient is off the BiPAP presently on 5 L nasal cannula pulse ox is 100%. Comfortable in the bed communicating well. She wants to fluid restriction to be taken off she wants to drink more fluids. Explained to her that she has a heart failure and need to be on fluid restriction. She is also on Lasix at this point. Patient is expressing desire to go back home when she is stable. Reason For Visit: HYPERCAPNIC RESP FAILURE,DIASTOLIC HF Physical Exam Vital Signs: Temp Pulse Resp BP Pulse Ox 98.0 F 48 L 19 117/39 L 99 12/31/18 07:43 12/31/18 07:43 12/31/18 07:43 12/31/18 07:43 12/31/18 07:43 Intake & Output 12/30/18 12/31/18 01/01/19 06:59 06:59 06:59 Intake Total 1494 1125 Output Total 1200 550 Balance 294 575 Weight 111.5 kg 113.3 kg General appearance: PRESENT: no acute distress, obese Head exam: PRESENT: atraumatic Eye exam: PRESENT: PERRLA Mouth exam: PRESENT: moist, tongue midline Neck exam: ABSENT: carotid bruit, JVD, lymphadenopathy, thyromegaly Respiratory exam: PRESENT: decreased breath sounds Cardiovascular exam: PRESENT: diastolic murmur, tachycardia GI/Abdominal exam: PRESENT: normal bowel sounds, soft. ABSENT: distended, guarding, mass, organolmegaly, rebound, tenderness Rectal exam: PRESENT: deferred Gentrourinary exam: PRESENT: indwelling catheter Extremities exam: PRESENT: full ROM. ABSENT: calf tenderness, clubbing, pedal edema Neurological exam: PRESENT: alert, awake, oriented to person, oriented to place, oriented to time, oriented to situation, CN II-XII grossly intact. ABSENT: motor sensory deficit Psychiatric exam: PRESENT: appropriate affect, normal mood. ABSENT: homicidal ideation, suicidal ideation Results Laboratory Results: 12/31/18 05:09 12/31/18 05:09 12/31/18 12/31/18 05:09 05:09 WBC 6.7 RBC 3.78 Hgb 10.2 L Hct 31.8 L MCV 84 MCH 27.1 MCHC 32.2 RDW 17.8 H Plt Count 273 Seg Neutrophils % 69.4 Lymphocytes % 16.3 Monocytes % 9.5 Eosinophils % 3.9 Basophils % 0.9 Absolute Neutrophils 4.6 Absolute Lymphocytes 1.1 Absolute Monocytes 0.6 Absolute Eosinophils 0.3 Absolute Basophils 0.1 Sodium 136.0 L Potassium 4.2 Chloride 83 L Carbon Dioxide 46 H* Anion Gap 7 BUN 25 H Creatinine 0.89 Est GFR ( Amer) > 60 Est GFR (Non-Af Amer) > 60 Glucose 154 H Calcium 8.8 Magnesium 2.0 Total Bilirubin 0.5 AST 17 ALT 21 Alkaline Phosphatase 55 Total Protein 5.8 L Albumin 3.1 L 12/27/18 21:55 Troponin I 0.013 NT-Pro-B Natriuret Pep 6540 H Impressions: Chest X-Ray 12/29/18 07:00 IMPRESSION: Convex leftward midthoracic scoliosis. No acute infiltrates. No cardiomegaly Assessment and Plan - Diagnosis (1) Acute and chronic respiratory failure Qualifiers: Respiratory failure complication: hypercapnia Qualified Code(s): J96.22 - Acute and chronic respiratory failure with hypercapnia Is this a current diagnosis for this admission?: Yes Plan: Secondary to pulmonary hypertension, morbid obesity hypoventilation syndrome with hypercapnic respiratory failure, trial of BiPAP in cervical extension. Avoiding narcotics and sedatives causing respiratory depression. Education for use of trilogy 12/29/2018-patient was admitted for acute on chronic respiratory failure with retention of CO2 most likely secondary to hypoventilation syndrome. On admission PCO2 is 143 improved to 48 2 this morning with BiPAP. Pulmonary consult is going to be requested. Plan is to continue the BiPAP and nebulizer treatments. 12/30/2018-patient admitted with acute on chronic respiratory failure with hypercapnia. PCO2 this morning is 48. Patient on BiPAP on 5 L oxygen pulse ox is 100% today. Chest bilateral entry was decreased no wheezing no crepitations. Plan is to continue the BiPAP PRN and nebulizer treatments and oxygen supplementation. Consult was placed for Dr. Sanders. The blood cultures so far negative. 12/31/[id number]-hoxz-old female with multiple medical problems admitted for acute on chronic respiratory failure with hypercapnia. PCO2 this morning is 46. Presently on oxygen via nasal cannula at 5 L. Pulse ox is 100%. The blood cultures are negative so far. (2) Hypoglycemia Is this a current diagnosis for this admission?: Yes Plan: A1c less than 7. Multiple recent episodes of hypoglycemia, discontinue glyburide and metformin with education. 12/29/2018-patient's latest blood sugar is 75. Glyburide and metformin on hold. 12/30/2018-patient's latest blood sugar is 102. Presently on insulin sliding scale and glyburide and metformin are on hold. 12/31/2018-patient's latest blood sugar is 154. Presently on insulin sliding scale glyburide and Metformin is on hold. Dietary education was provided. Weight loss exercise lifestyle modifications are discussed with the patient and dietary consult was done. (3) Hypothermia Qualifiers: Encounter type: initial encounter Qualified Code(s): T68.XXXA - Hypothermia, initial encounter Is this a current diagnosis for this admission?: Yes (4) Acute on chronic diastolic (congestive) heart failure Is this a current diagnosis for this admission?: Yes Plan: Complicated by severe pulmonary hypertension and aortic regurgitation. Optimize blood pressure, ANGELIQUE inhibitor and Norvasc. 12/29/2018-patient has history of pulmonary hypertension, aortic regurgitation. She is also has history of chronic diastolic heart failure. Admitted with acute on chronic diastolic heart failure. Chest x-ray does not show evidence of fluid overload but cardiomegaly. Currently on Lasix 40 mg every 12 hours. Plan to decrease the Lasix to 40 mg IV once a day. 12/30/2018-patient has history of morbid obesity, pulmonary hypertension, aortic regurgitation. She also has history of chronic diastolic heart failure. Chest x-ray shows cardiomegaly but no fluid overload. Present on Lasix 20 mg once a day. Blood pressure today is 150/48 is stable. Plan is to continue the present management. 12/31/2018-patient admitted with acute on chronic diastolic heart failure. Complicated by morbid obesity, pulmonary hypertension, aortic regurgitation. Chest x-ray shows cardiomegaly no evidence of fluid overload. Presently on Lasix 20 mg once a day and fluid restriction 1500 cc/day. Plan is to continue the present management. (5) DNR (do not resuscitate) Is this a current diagnosis for this admission?: Yes - Time Time Spent with patient: 25-34 minutes Medications reviewed and adjusted accordingly: Yes Anticipated discharge: Home with Homehealth
[2018-12-31] MEDS: FUROSEMIDE 20 MG TABLET PO SCH (11:18)
[2018-12-31] MEDS: ROPINIROLE HCL 1 MG TABLET PO SCH (22:13)
[2018-12-31] MEDS: MONTELUKAST SODIUM 10 MG TABLET PO SCH (22:14)
[2018-12-31] MEDS: ATORVASTATIN CALCIUM 40 MG TABLET PO SCH (22:14)
[2019-01-01] MEDS: PANTOPRAZOLE SODIUM 20 MG TABLET.DR PO SCH (05:51)
[2019-01-01] MEDS: HEPARIN SOD (PORCINE) 5,000 UNIT/ML 1 ML SYRINGE SUBCUT SCH ×3 (05:51→23:07)
[2019-01-01 06:41] LABS: ABSOLUTE BASOPHILS # (AUTO) 0.1 10^3/uL (0.0-0.2); ABSOLUTE EOSINOPHILS # (AUTO) 0.2 10^3/uL (0.0-0.6); ABSOLUTE MONOCYTES (AUTO) 0.6 10^3/uL (0.1-1.4); ABSOLUTE NEUT (AUTO) 5.9 10^3/uL (1.7-8.2); BASOPHILS % (AUTO) 0.7 % (0-2); HEMATOCRIT 29.7 % (36.0-47.0); HEMOGLOBIN 9.5 g/dL (12.0-15.5); LYMPHOCYTES % (AUTO) 12.7 % (13-45); MEAN CORPUSCULAR HEMOGLOBIN 27.1 pg (27.0-33.4); MEAN CORPUSCULAR HGB CONC 32.1 g/dL (32.0-36.0); MEAN CORPUSCULAR VOLUME 85 fl (80-97); MONOCYTES % (AUTO) 7.7 % (3-13); PLATELET COUNT 257 10^3/uL (150-450); RED BLOOD COUNT 3.51 10^6/uL (3.72-5.28); RED CELL DISTRIBUTION WIDTH 17.2 % (11.5-14.0); SEGMENTED NEUTROPHILS % (AUTO) 75.9 % (42-78); TOTAL CELLS COUNTED % (AUTO) 100 %; WHITE BLOOD COUNT 7.8 10^3/uL (4.0-10.5)
[2019-01-01 07:07] LABS: ALANINE AMINOTRANSFERASE 22 U/L (9-52); ALBUMIN 3.1 g/dL (3.5-5.0); ALKALINE PHOSPHATASE 55 U/L (38-126); ASPARTATE AMINO TRANSFERASE 21 U/L (14-36); BILIRUBIN,DIRECT 0.3 mg/dL (0.0-0.4); BILIRUBIN,TOTAL 0.4 mg/dL (0.2-1.3); BLOOD UREA NITROGEN 33 mg/dL (7-20); CALCIUM 9.4 mg/dL (8.4-10.2); CHLORIDE 88 mmol/L (98-107); GLUCOSE 147 mg/dL (75-110); POTASSIUM 4.4 mmol/L (3.6-5.0); SODIUM 137.9 mmol/L (137-145); TOTAL PROTEIN 5.7 g/dL (6.3-8.2)
[2019-01-01 07:23] LABS: ANION GAP 8 (5-19)
[2019-01-01 07:24] LABS: CARBON DIOXIDE 42 mmol/L (22-30)
[2019-01-01] MEDS: DOCUSATE SODIUM 100 MG CAPSULE PO SCH ×2 (09:12→17:35)
[2019-01-01] MEDS: AMLODIPINE BESYLATE 2.5 MG TABLET PO SCH (09:16)
[2019-01-01] MEDS: CLOPIDOGREL BISULFATE 75 MG TABLET PO SCH (09:16)
[2019-01-01] MEDS: CETIRIZINE 10 MG TABLET PO SCH (09:16)
[2019-01-01] MEDS: METOPROLOL SUCCINATE 25 MG TAB.SR.24H PO SCH (09:16)
[2019-01-01] MEDS: CALCIUM CARBONATE 250 MG/VITAMIN D3 125 UNIT TABLET PO SCH (09:16)
[2019-01-01] MEDS: ASPIRIN 81 MG TABLET, ENT COATED PO SCH (09:16)
[2019-01-01] MEDS: LOSARTAN POTASSIUM 25 MG TABLET PO SCH ×2 (09:16→23:05)
[2019-01-01] MEDS: MAGNESIUM OXIDE 400 MG TABLET PO SCH (09:16)
[2019-01-01] MEDS: FUROSEMIDE 20 MG TABLET PO SCH (09:16)
[2019-01-01] MEDS: FLUTICASONE/VILANTEROL 200-25 MCG/DOSE IH SCH (09:17)
[2019-01-01] MEDS: FLUTICASONE NASAL SPRAY 50 MCG/SPRY 120 SPRAY/16 GM NASL SCH ×2 (09:17→23:06)
[2019-01-01] MEDS: POTASSIUM CHLORIDE 10 MEQ CAPSULE.ER PO SCH (09:17)
[2019-01-01] MEDS: LIOTHYRONINE SODIUM 5 MCG TABLET PO SCH (09:17)
--- NOTE | 2019-01-01 10:27 | PDOC PROGRESS REPORT ---
Subjective Progress Note for:: 01/01/19 Subjective:: 73 year old female with a past medical history of post polio syndrome, morbid obesity, hypoventilation syndrome, obstructive sleep apnea, pulmonary hypertension, diabetes, diastolic heart failure, opiate dependent chronic pain, hypothyroidism, coronary artery disease with stents and a bedbound state with chronic left leg cellulitis. Patient presents with 12 hours of shortness of breath prompting evaluation in the emergency department. She is found to have a blood glucose of 47, patient is on glyburide and metformin despite repeated A1c less than 7. Patient receives D50 and is otherwise found to have hypothermia, hypoxia and hypercapnia with a venous blood gas of 143. She started on BiPAP and referred to the hospitalist for admission. Echocardiogram October 2018 reveals pulmonary hypertension, moderate aortic regurgitation and diastolic heart failure with preserved ejection fraction. Patient denies chest pain nausea vomiting. She admits to noncompliance with trilogy positive pressure air. 12/29/[id number]-ew[age]-old female with history of multiple medical problems including morbid obesity, hypoventilation syndrome, obstructive sleep apnea, pulmonary hypertension chronic diastolic heart failure chronic pain dependent see, hypothyroidism, carotid disease with stent placements, bedbound status admitted for shortness of breath requiring BiPAP. Her PCO2 in the ER is 143. It was improved to 48 this morning patient wants to be noncompliant with her BiPAP. Requesting to take off the BiPAP wants to eat 1 to drink appetite explained to her that pulse oxes are dropping without BiPAP she needs to be on it at least another 48 hours she reluctantly agreed but requesting for sips of water once in a while. 12/30/2018-no acute events in the last 24 hours. Patient is compliant with BiPAP. PCO2 this morning is 48. Comfortably in the bed communicating well. She wants to see Dr. Sanders during the hospital stay. Pulse ox is 100% on 5 L. 12/31/2018-no acute events in the last 24 hours. Patient is off the BiPAP presently on 5 L nasal cannula pulse ox is 100%. Comfortable in the bed communicating well. She wants to fluid restriction to be taken off she wants to drink more fluids. Explained to her that she has a heart failure and need to be on fluid restriction. She is also on Lasix at this point. Patient is expressing desire to go back home when she is stable. 01/01/2019-no acute events in the last 24 hours. Presently on oxygen via nasal cannula. Pulse oxes percent on 35% oxygen comfortably in the bed communicating well expressing desire to go home. I talked to her about residential placement but patient flatly refusing. Patient agreed for palliative care consult. Reason For Visit: HYPERCAPNIC RESP FAILURE,DIASTOLIC HF Physical Exam Vital Signs: Temp Pulse Resp BP Pulse Ox 98.2 F 62 20 123/35 L 99 01/01/19 07:34 01/01/19 07:34 01/01/19 07:34 01/01/19 07:34 01/01/19 07:34 Intake & Output 12/31/18 01/01/19 01/02/19 06:59 06:59 06:59 Intake Total 1125 708 Output Total 550 775 Balance 575 -67 Weight 113.3 kg 113.4 kg General appearance: PRESENT: no acute distress, obese Head exam: PRESENT: atraumatic Eye exam: PRESENT: PERRLA Mouth exam: PRESENT: moist, tongue midline Teeth exam: PRESENT: poor dentation Neck exam: ABSENT: carotid bruit, JVD, lymphadenopathy, thyromegaly Respiratory exam: PRESENT: decreased breath sounds Cardiovascular exam: PRESENT: diastolic murmur, tachycardia GI/Abdominal exam: PRESENT: normal bowel sounds, soft. ABSENT: distended, guarding, mass, organolmegaly, rebound, tenderness Rectal exam: PRESENT: deferred Extremities exam: PRESENT: full ROM. ABSENT: calf tenderness, clubbing, pedal edema Neurological exam: PRESENT: alert, awake, oriented to person, oriented to place, oriented to time, oriented to situation, CN II-XII grossly intact. ABSENT: motor sensory deficit Psychiatric exam: PRESENT: appropriate affect, normal mood. ABSENT: homicidal ideation, suicidal ideation Results Laboratory Results: 01/01/19 06:06 01/01/19 06:06 01/01/19 01/01/19 06:06 06:06 WBC 7.8 RBC 3.51 L Hgb 9.5 L Hct 29.7 L MCV 85 MCH 27.1 MCHC 32.1 RDW 17.2 H Plt Count 257 Seg Neutrophils % 75.9 Lymphocytes % 12.7 L Monocytes % 7.7 Eosinophils % 3.0 Basophils % 0.7 Absolute Neutrophils 5.9 Absolute Lymphocytes 1.0 Absolute Monocytes 0.6 Absolute Eosinophils 0.2 Absolute Basophils 0.1 Sodium 137.9 Potassium 4.4 Chloride 88 L Carbon Dioxide 42 H* Anion Gap 8 BUN 33 H Creatinine 0.82 Est GFR ( Amer) > 60 Est GFR (Non-Af Amer) > 60 Glucose 147 H Calcium 9.4 Magnesium 2.1 Total Bilirubin 0.4 AST 21 ALT 22 Alkaline Phosphatase 55 Total Protein 5.7 L Albumin 3.1 L 12/27/18 21:55 Troponin I 0.013 NT-Pro-B Natriuret Pep 6540 H Impressions: Chest X-Ray 12/29/18 07:00 IMPRESSION: Convex leftward midthoracic scoliosis. No acute infiltrates. No cardiomegaly Assessment and Plan - Diagnosis (1) Acute and chronic respiratory failure Qualifiers: Respiratory failure complication: hypercapnia Qualified Code(s): J96.22 - Acute and chronic respiratory failure with hypercapnia Is this a current diagnosis for this admission?: Yes Plan: Secondary to pulmonary hypertension, morbid obesity hypoventilation syndrome with hypercapnic respiratory failure, trial of BiPAP in cervical extension. Avoiding narcotics and sedatives causing respiratory depression. Education for use of trilogy 12/29/2018-patient was admitted for acute on chronic respiratory failure with retention of CO2 most likely secondary to hypoventilation syndrome. On admission PCO2 is 143 improved to 48 2 this morning with BiPAP. Pulmonary consult is going to be requested. Plan is to continue the BiPAP and nebulizer treatments. 12/30/2018-patient admitted with acute on chronic respiratory failure with hypercapnia. PCO2 this morning is 48. Patient on BiPAP on 5 L oxygen pulse ox is 100% today. Chest bilateral entry was decreased no wheezing no crepitations. Plan is to continue the BiPAP PRN and nebulizer treatments and oxygen supplementation. Consult was placed for Dr. Sanders. The blood cultures so far negative. 12/31/[id number]-kcep-old female with multiple medical problems admitted for acute on chronic respiratory failure with hypercapnia. PCO2 this morning is 46. Presently on oxygen via nasal cannula at 5 L. Pulse ox is 100%. The blood cultures are negative so far. 01/01/2019-admitted for acute on chronic respiratory failure with hypercapnia. PCO2 is a 42 this morning. Improving. Presently on 35% oxygen with BiPAP pulse ox 100%. Chest x-ray was negative for pneumonia. Blood cultures are negative so far. (2) Hypoglycemia Is this a current diagnosis for this admission?: Yes Plan: A1c less than 7. Multiple recent episodes of hypoglycemia, discontinue glyburide and metformin with education. 12/29/2018-patient's latest blood sugar is 75. Glyburide and metformin on hold. 12/30/2018-patient's latest blood sugar is 102. Presently on insulin sliding scale and glyburide and metformin are on hold. 12/31/2018-patient's latest blood sugar is 154. Presently on insulin sliding scale glyburide and Metformin is on hold. Dietary education was provided. Weight loss exercise lifestyle modifications are discussed with the patient and dietary consult was done. 01/01/2019-patient latest blood sugar is 147 stable. (3) Hypothermia Qualifiers: Encounter type: initial encounter Qualified Code(s): T68.XXXA - Hypothermia, initial encounter Is this a current diagnosis for this admission?: Yes (4) Acute on chronic diastolic (congestive) heart failure Is this a current diagnosis for this admission?: Yes Plan: Complicated by severe pulmonary hypertension and aortic regurgitation. Optimize blood pressure, ANGELIQUE inhibitor and Norvasc. 12/29/2018-patient has history of pulmonary hypertension, aortic regurgitation. She is also has history of chronic diastolic heart failure. Admitted with acute on chronic diastolic heart failure. Chest x-ray does not show evidence of fluid overload but cardiomegaly. Currently on Lasix 40 mg every 12 hours. Plan to decrease the Lasix to 40 mg IV once a day. 12/30/2018-patient has history of morbid obesity, pulmonary hypertension, aortic regurgitation. She also has history of chronic diastolic heart failure. Chest x-ray shows cardiomegaly but no fluid overload. Present on Lasix 20 mg once a day. Blood pressure today is 150/48 is stable. Plan is to continue the present management. 12/31/2018-patient admitted with acute on chronic diastolic heart failure. Complicated by morbid obesity, pulmonary hypertension, aortic regurgitation. Chest x-ray shows cardiomegaly no evidence of fluid overload. Presently on Lasix 20 mg once a day and fluid restriction 1500 cc/day. Plan is to continue the present management. 01/01/2019-patient is presently on Lasix 20 mg once a day and also on fluid restriction. Not in fluid overload. (5) DNR (do not resuscitate) Is this a current diagnosis for this admission?: Yes - Time Time Spent with patient: 25-34 minutes Medications reviewed and adjusted accordingly: Yes Anticipated discharge: SNF
--- NOTE | 2019-01-01 11:56 | PDOC CONSULTATION ---
Consultation Consult Date: 12/31/18 Provider Consulted: JANNA SANDERS Consult reason:: Respiratory failure with hypercapnia History of Present Illness Admission Date/PCP: 12/28/18 00:27 SAW MARTINEZ MD History of Present Illness: ALBERTO DIAL is a 73 year old female known to [facility] currently on a trilogy machine at home. Patient has a history of noncompliance with the trilogy. She is currently on BiPAP ST in the room. Patient presented to the ER with shortness of breath prompting evaluation and admission. Patient's PCO2 on admission was 88.4. Patient is comfortable on BiPAP ST currently. Past Medical History Cardiac Medical History: Reports: Congestive Heart Failure - Diastolic, Coronary Artery Disease, Myocardial Infarction - cardiac stents x 2, Hyperlipidema, Hypertension, Heart Murmur - aortic stenosis Denies: DVT, Pulmonary Embolism Pulmonary Medical History: Reports: Asthma, Bronchitis, Chronic Obstructive Pulmonary Disease (COPD), Sleep Apnea - Bipap Denies: Pneumonia, Tuberculosis Neurological Medical History: Denies: Seizures Endocrine Medical History: Reports: Diabetes Mellitus Type 2, Hypothyroidism Denies: Diabetes Mellitus Type 1, Hyperthyroidism GI Medical History: Reports: Gastroesophageal Reflux Disease Denies: Cirrhosis, Hepatitis, Ulcerative Colitis Musculoskeltal Medical History: Reports: Arthritis - generalized Psychiatric Medical History: Reports: Depression Traumatic Medical History: Denies: Traumatic Brain Injury Hematology: Reports: Anemia Infectious Medical History: Denies: HIV Past Surgical History Past Surgical History: Reports: Appendectomy, Colostomy - then reversed, Hysterectomy, Orthopedic Surgery - carpal tunnel, polio surgery to left leg Denies: Pacemaker Social History Lives with: Family Smoking Status: Never Smoker Frequency of Alcohol Use: None Hx Recreational Drug Use: No Drugs: None Hx Prescription Drug Abuse: No - Advance Directive Resuscitation Status: Full Code Family History Family History: DM, Hyperlipidemia, Hypertension Parental Family History Reviewed: Yes Children Family History Reviewed: Yes Sibling(s) Family History Reviewed.: Yes Medication/Allergy Home Medications: Aspirin [Adult Low Dose Aspirin EC] 81 mg PO DAILY 12/28/18 Atorvastatin Calcium [Lipitor 40 mg Tablet] 40 mg PO QHS 12/28/18 Budesonide/Formoterol Fumarate [Symbicort HFA 160-4.5 mcg Inhaler 6 gm] 2 puff IH Q12 12/28/18 Calcium Citrate/Vitamin D3 [Citracal + D Maximum Caplet] 1 tab PO DAILY 12/28/18 Cetirizine HCl [Zyrtec 10 mg Tablet] 10 mg PO DAILY 12/28/18 Clopidogrel Bisulfate [Plavix 75 mg Tablet] 75 mg PO DAILY 12/28/18 Furosemide [Lasix 40 mg Tablet] 40 mg PO QPM 12/28/18 Furosemide [Lasix 40 mg Tablet] 60 mg PO QAM 12/28/18 Glipizide [Glucotrol 10 mg Tablet] 10 mg PO QAM 12/28/18 Ipratropium/Albuterol Sulfate [Duoneb 3 ml Ampul] 3 ml NEB [id number] PRN 12/28/18 Liothyronine Sodium [Cytomel] 10 mcg PO DAILY 12/28/18 Lorazepam [Ativan 0.5 mg Tablet] 0.5 mg PO BIDP PRN 12/28/18 Magnesium Oxide [Mag-Ox 400 mg Tablet] 400 mg PO DAILY 12/28/18 Metformin HCl [Glucophage 500 mg Tablet] 500 mg PO BIDBS 12/28/18 Metoprolol Succinate [Toprol Xl 25 mg Tab.sr] 12.5 mg PO DAILY 12/28/18 Montelukast Sodium [Singulair 10 mg Tablet] 10 mg PO QPM 12/28/18 Nitroglycerin [Nitrostat 0.4 mg (1/150 Gr) Tabs 25/Bottle] 0.4 mg SL Q5MP PRN 12/28/18 Potassium Chloride [Klor-Con 10 Meq Capsule ER] 30 meq PO DAILY 12/28/18 Rabeprazole Sodium [Aciphex] 20 mg PO Q6AM 12/28/18 Ropinirole HCl [Requip] 1 mg PO QHS 12/28/18 Allergies/Adverse Reactions: hydromorphone HCl [From Dilaudid] Allergy (Severe, Verified 12/01/18 04:18) Respiratory arrest codeine [Codeine] Allergy (Intermediate, Verified 12/01/18 04:18) Hallucinations Review of Systems Constitutional: PRESENT: fatigue, weakness. ABSENT: headache(s) Eyes: ABSENT: visual disturbances Ears: ABSENT: hearing changes Nose, Mouth, and Throat: ABSENT: sore throat Cardiovascular: PRESENT: dyspnea on exertion, edema Gastrointestinal: ABSENT: bloating, constipation, heartburn Genitourinary: ABSENT: difficulty urinating, hematuria Musculoskeletal: ABSENT: deformity Integumentary: ABSENT: diaphoresis, erythema Neurological: ABSENT: abnormal gait, abnormal speech, confusion, dizziness, focal weakness, syncope Psychiatric: ABSENT: anxiety, depression, homidical ideation, suicidal ideation Endocrine: ABSENT: cold intolerance, heat intolerance, polydipsia, polyuria Hematologic/Lymphatic: ABSENT: easy bleeding, easy bruising Physical Exam Vital Signs: Temp Pulse Resp BP Pulse Ox 98.2 F 62 20 123/35 L 99 01/01/19 07:34 01/01/19 07:34 01/01/19 07:34 01/01/19 07:34 01/01/19 07:34 Intake & Output 12/31/18 01/01/19 01/02/19 06:59 06:59 06:59 Intake Total 1125 708 Output Total 550 775 Balance 575 -67 Weight 113.3 kg 113.4 kg General appearance: PRESENT: disheveled, morbidly obese Head exam: PRESENT: atraumatic, normocephalic Eye exam: PRESENT: conjunctiva pink, EOMI, PERRLA. ABSENT: scleral icterus Ear exam: PRESENT: normal external ear exam Mouth exam: PRESENT: moist, tongue midline Neck exam: ABSENT: carotid bruit, JVD, lymphadenopathy, thyromegaly Cardiovascular exam: PRESENT: RRR. ABSENT: diastolic murmur, rubs, systolic murmur Pulses: PRESENT: normal dorsalis pedis pul Vascular exam: PRESENT: normal capillary refill GI/Abdominal exam: PRESENT: normal bowel sounds, soft. ABSENT: distended, guarding, mass, organolmegaly, rebound, tenderness Rectal exam: PRESENT: deferred Extremities exam: PRESENT: full ROM. ABSENT: calf tenderness, clubbing, pedal edema Musculoskeletal exam: PRESENT: full ROM. ABSENT: deformity Neurological exam: PRESENT: awake Psychiatric exam: PRESENT: appropriate affect, normal mood. ABSENT: homicidal ideation, suicidal ideation Skin exam: PRESENT: dry, intact, warm. ABSENT: cyanosis, rash Results Laboratory Results: 01/01/19 06:06 01/01/19 06:06 01/01/19 01/01/19 06:06 06:06 WBC 7.8 RBC 3.51 L Hgb 9.5 L Hct 29.7 L MCV 85 MCH 27.1 MCHC 32.1 RDW 17.2 H Plt Count 257 Seg Neutrophils % 75.9 Lymphocytes % 12.7 L Monocytes % 7.7 Eosinophils % 3.0 Basophils % 0.7 Absolute Neutrophils 5.9 Absolute Lymphocytes 1.0 Absolute Monocytes 0.6 Absolute Eosinophils 0.2 Absolute Basophils 0.1 Sodium 137.9 Potassium 4.4 Chloride 88 L Carbon Dioxide 42 H* Anion Gap 8 BUN 33 H Creatinine 0.82 Est GFR ( Amer) > 60 Est GFR (Non-Af Amer) > 60 Glucose 147 H Calcium 9.4 Magnesium 2.1 Total Bilirubin 0.4 AST 21 ALT 22 Alkaline Phosphatase 55 Total Protein 5.7 L Albumin 3.1 L 12/27/18 21:55 Troponin I 0.013 NT-Pro-B Natriuret Pep 6540 H Impressions: Chest X-Ray 12/29/18 07:00 IMPRESSION: Convex leftward midthoracic scoliosis. No acute infiltrates. No cardiomegaly Assessment & Plan - Diagnosis (1) Acute and chronic respiratory failure with hypercapnia Plan: Continue patient on BiPAP at current settings as she is comfortable resume trilogy upon discharge at home Inpatient Scribe Statement - . Entered by Ellen Burrell, acting as scribe for Dr. Sanders.
[2019-01-01] MEDS: MONTELUKAST SODIUM 10 MG TABLET PO SCH (23:04)
[2019-01-01] MEDS: ROPINIROLE HCL 1 MG TABLET PO SCH (23:06)
[2019-01-01] MEDS: ATORVASTATIN CALCIUM 40 MG TABLET PO SCH (23:06)
[2019-01-02] MEDS: PANTOPRAZOLE SODIUM 20 MG TABLET.DR PO SCH (05:53)
[2019-01-02] MEDS: HEPARIN SOD (PORCINE) 5,000 UNIT/ML 1 ML SYRINGE SUBCUT SCH ×3 (05:53→21:09)
[2019-01-02 06:15] LABS: ALANINE AMINOTRANSFERASE 21 U/L (9-52); ALBUMIN 3.1 g/dL (3.5-5.0); ALKALINE PHOSPHATASE 55 U/L (38-126); ASPARTATE AMINO TRANSFERASE 23 U/L (14-36); BILIRUBIN,DIRECT 0.3 mg/dL (0.0-0.4); BILIRUBIN,TOTAL 0.4 mg/dL (0.2-1.3); BLOOD UREA NITROGEN 37 mg/dL (7-20); CALCIUM 9.1 mg/dL (8.4-10.2); CHLORIDE 91 mmol/L (98-107); GLUCOSE 122 mg/dL (75-110); SODIUM 137.4 mmol/L (137-145); TOTAL PROTEIN 5.7 g/dL (6.3-8.2)
[2019-01-02 06:29] LABS: ANION GAP 5 (5-19)
[2019-01-02 06:31] LABS: CARBON DIOXIDE 41 mmol/L (22-30); POTASSIUM 5.5 mmol/L (3.6-5.0)
[2019-01-02] MEDS: DOCUSATE SODIUM 100 MG CAPSULE PO SCH ×2 (09:10→17:10)
[2019-01-02] MEDS: METOPROLOL SUCCINATE 25 MG TAB.SR.24H PO SCH (09:19)
[2019-01-02] MEDS: AMLODIPINE BESYLATE 2.5 MG TABLET PO SCH (09:22)
[2019-01-02] MEDS: MAGNESIUM OXIDE 400 MG TABLET PO SCH (09:22)
[2019-01-02] MEDS: LIOTHYRONINE SODIUM 5 MCG TABLET PO SCH (09:22)
[2019-01-02] MEDS: CLOPIDOGREL BISULFATE 75 MG TABLET PO SCH (09:22)
[2019-01-02] MEDS: FUROSEMIDE 20 MG TABLET PO SCH (09:22)
[2019-01-02] MEDS: LOSARTAN POTASSIUM 25 MG TABLET PO SCH ×2 (09:23→21:07)
[2019-01-02] MEDS: ASPIRIN 81 MG TABLET, ENT COATED PO SCH (09:23)
[2019-01-02] MEDS: FLUTICASONE/VILANTEROL 200-25 MCG/DOSE IH SCH (09:23)
[2019-01-02] MEDS: CALCIUM CARBONATE 250 MG/VITAMIN D3 125 UNIT TABLET PO SCH (09:23)
[2019-01-02] MEDS: FLUTICASONE NASAL SPRAY 50 MCG/SPRY 120 SPRAY/16 GM NASL SCH ×2 (09:23→21:08)
[2019-01-02] MEDS: CETIRIZINE 10 MG TABLET PO SCH (09:23)
--- NOTE | 2019-01-02 09:54 | PDOC PROGRESS REPORT ---
Subjective Progress Note for:: 01/02/19 Subjective:: 73 year old female with a past medical history of post polio syndrome, morbid obesity, hypoventilation syndrome, obstructive sleep apnea, pulmonary hypertension, diabetes, diastolic heart failure, opiate dependent chronic pain, hypothyroidism, coronary artery disease with stents and a bedbound state with chronic left leg cellulitis. Patient presents with 12 hours of shortness of breath prompting evaluation in the emergency department. She is found to have a blood glucose of 47, patient is on glyburide and metformin despite repeated A1c less than 7. Patient receives D50 and is otherwise found to have hypothermia, hypoxia and hypercapnia with a venous blood gas of 143. She started on BiPAP and referred to the hospitalist for admission. Echocardiogram October 2018 reveals pulmonary hypertension, moderate aortic regurgitation and diastolic heart failure with preserved ejection fraction. Patient denies chest pain nausea vomiting. She admits to noncompliance with trilogy positive pressure air. 12/29/[id number]-nevy-old female with history of multiple medical problems including morbid obesity, hypoventilation syndrome, obstructive sleep apnea, pulmonary hypertension chronic diastolic heart failure chronic pain dependent see, hypothyroidism, carotid disease with stent placements, bedbound status admitted for shortness of breath requiring BiPAP. Her PCO2 in the ER is 143. It was improved to 48 this morning patient wants to be noncompliant with her BiPAP. Requesting to take off the BiPAP wants to eat 1 to drink appetite explained to her that pulse oxes are dropping without BiPAP she needs to be on it at least another 48 hours she reluctantly agreed but requesting for sips of water once in a while. 12/30/2018-no acute events in the last 24 hours. Patient is compliant with BiPAP. PCO2 this morning is 48. Comfortably in the bed communicating well. She wants to see Dr. Sanders during the hospital stay. Pulse ox is 100% on 5 L. 12/31/2018-no acute events in the last 24 hours. Patient is off the BiPAP presently on 5 L nasal cannula pulse ox is 100%. Comfortable in the bed communicating well. She wants to fluid restriction to be taken off she wants to drink more fluids. Explained to her that she has a heart failure and need to be on fluid restriction. She is also on Lasix at this point. Patient is expressing desire to go back home when she is stable. 01/01/2019-no acute events in the last 24 hours. Presently on oxygen via nasal cannula. Pulse oxes percent on 35% oxygen comfortably in the bed communicating well expressing desire to go home. I talked to her about snf placement but patient flatly refusing. Patient agreed for palliative care consult. 01/02/2019-no acute events in the last 24 hours. Seen by the pulmonary. They are okay for the patient to go home if stable and resume trilogy. Patient is complaining of itchiness and dryness in the pelvic area requesting nystatin cream. Potassium is 5.5 to stop potassium supplementation and to recheck labs tomorrow. Reason For Visit: HYPERCAPNIC RESP FAILURE,DIASTOLIC HF Physical Exam Vital Signs: Temp Pulse Resp BP Pulse Ox 98.3 F 56 L 20 134/45 H 98 01/02/19 07:47 01/02/19 07:49 01/02/19 07:49 01/02/19 07:49 01/02/19 07:58 Intake & Output 01/01/19 01/02/19 01/03/19 06:59 06:59 06:59 Intake Total 708 592 Output Total 775 750 Balance -67 -158 Weight 113.4 kg 116.6 kg General appearance: PRESENT: no acute distress Head exam: PRESENT: atraumatic Eye exam: PRESENT: PERRLA Mouth exam: PRESENT: moist, tongue midline Neck exam: ABSENT: carotid bruit, JVD, lymphadenopathy, thyromegaly Respiratory exam: PRESENT: decreased breath sounds Cardiovascular exam: PRESENT: diastolic murmur, tachycardia GI/Abdominal exam: PRESENT: normal bowel sounds, soft. ABSENT: distended, guarding, mass, organolmegaly, rebound, tenderness Rectal exam: PRESENT: deferred Neurological exam: PRESENT: alert, awake, oriented to person, oriented to place, oriented to time, oriented to situation, CN II-XII grossly intact. ABSENT: motor sensory deficit Psychiatric exam: PRESENT: appropriate affect, normal mood. ABSENT: homicidal ideation, suicidal ideation Results Laboratory Results: 01/01/19 06:06 01/02/19 05:08 01/02/19 05:08 Sodium 137.4 Potassium 5.5 H D Chloride 91 L Carbon Dioxide 41 H* Anion Gap 5 BUN 37 H Creatinine 0.70 Est GFR ( Amer) > 60 Est GFR (Non-Af Amer) > 60 Glucose 122 H Calcium 9.1 Magnesium 2.2 Total Bilirubin 0.4 AST 23 ALT 21 Alkaline Phosphatase 55 Total Protein 5.7 L Albumin 3.1 L 12/27/18 22:30 Blood Blood Culture - Final NO GROWTH IN 5 DAYS 12/27/18 21:55 Blood Blood Culture - Final NO GROWTH IN 5 DAYS 12/27/18 21:55 Troponin I 0.013 NT-Pro-B Natriuret Pep 6540 H Impressions: Chest X-Ray 12/29/18 07:00 IMPRESSION: Convex leftward midthoracic scoliosis. No acute infiltrates. No cardiomegaly Assessment and Plan - Diagnosis (1) Acute and chronic respiratory failure Qualifiers: Respiratory failure complication: hypercapnia Qualified Code(s): J96.22 - Acute and chronic respiratory failure with hypercapnia Is this a current diagnosis for this admission?: Yes Plan: Secondary to pulmonary hypertension, morbid obesity hypoventilation syndrome with hypercapnic respiratory failure, trial of BiPAP in cervical extension. Avoiding narcotics and sedatives causing respiratory depression. Education for use of trilogy 12/29/2018-patient was admitted for acute on chronic respiratory failure with retention of CO2 most likely secondary to hypoventilation syndrome. On admission PCO2 is 143 improved to 48 2 this morning with BiPAP. Pulmonary consult is going to be requested. Plan is to continue the BiPAP and nebulizer treatments. 12/30/2018-patient admitted with acute on chronic respiratory failure with hypercapnia. PCO2 this morning is 48. Patient on BiPAP on 5 L oxygen pulse ox is 100% today. Chest bilateral entry was decreased no wheezing no crepitations. Plan is to continue the BiPAP PRN and nebulizer treatments and oxygen supplementation. Consult was placed for Dr. Sanders. The blood cultures so far negative. 12/31/[id number]-exwx-old female with multiple medical problems admitted for acute on chronic respiratory failure with hypercapnia. PCO2 this morning is 46. Presently on oxygen via nasal cannula at 5 L. Pulse ox is 100%. The blood cu ltures are negative so far. 01/01/2019-admitted for acute on chronic respiratory failure with hypercapnia. PCO2 is a 42 this morning. Improving. Presently on 35% oxygen with BiPAP pulse ox 100%. Chest x-ray was negative for pneumonia. Blood cultures are negative so far. 01/02/[id number]-qsaf-old female with multiple medical problems including obesity, obstructive sleep apnea, pulmonary hypertension admitted for COPD exacerbation with acute on chronic respiratory failure with hypoxia and hypercapnia. PCO2 is 41 today. Improving. pulse ox is 98% on 4 L. (2) Hypoglycemia Is this a current diagnosis for this admission?: Yes Plan: A1c less than 7. Multiple recent episodes of hypoglycemia, discontinue glyburide and metformin with education. 12/29/2018-patient's latest blood sugar is 75. Glyburide and metformin on hold. 12/30/2018-patient's latest blood sugar is 102. Presently on insulin sliding scale and glyburide and metformin are on hold. 12/31/2018-patient's latest blood sugar is 154. Presently on insulin sliding scale glyburide and Metformin is on hold. Dietary education was provided. Weight loss exercise lifestyle modifications are discussed with the patient and dietary consult was done. 01/01/2019-patient latest blood sugar is 147 stable. 01/02/2018-patient Carlos's blood sugar is 122 stable. Patient is off glyburide and metformin. (3) Hypothermia Qualifiers: Encounter type: initial encounter Qualified Code(s): T68.XXXA - Hy pothermia, initial encounter Is this a current diagnosis for this admission?: Yes (4) Acute on chronic diastolic (congestive) heart failure Is this a current diagnosis for this admission?: Yes Plan: Complicated by severe pulmonary hypertension and aortic regurgitation. Optimize blood pressure, ANGELIQUE inhibitor and Norvasc. 12/29/2018-patient has history of pulmonary hypertension, aortic regurgitation. She is also has history of chronic diastolic heart failure. Admitted with acute on chronic diastolic heart failure. Chest x-ray does not show evidence of fluid overload but cardiomegaly. Currently on Lasix 40 mg every 12 hours. Plan to decrease the Lasix to 40 mg IV once a day. 12/30/2018-patient has history of morbid obesity, pulmonary hypertension, aortic regurgitation. She also has history of chronic diastolic heart failure. Chest x-ray shows cardiomegaly but no fluid overload. Present on Lasix 20 mg once a day. Blood pressure today is 150/48 is stable. Plan is to continue the present management. 12/31/2018-patient admitted with acute on chronic diastolic heart failure. Comp licated by morbid obesity, pulmonary hypertension, aortic regurgitation. Chest x-ray shows cardiomegaly no evidence of fluid overload. Presently on Lasix 20 mg once a day and fluid restriction 1500 cc/day. Plan is to continue the present management. 01/01/2019-patient is presently on Lasix 20 mg once a day and also on fluid restriction. Not in fluid overload. 01/02/2019-patient is presently on Lasix 20 mg p.o. daily and on fluid restriction, not in fluid overload today. (5) DNR (do not resuscitate) Is this a current diagnosis for this admission?: Yes - Time Time Spent with patient: 25-34 minutes Medications reviewed and adjusted accordingly: Yes Anticipated discharge: Home
[2019-01-02] MEDS: NYSTATIN/TRIAMCIN CREAM 15 GM TP SCH ×4 (15:19→21:08)
[2019-01-02] MEDS: ROPINIROLE HCL 1 MG TABLET PO SCH (21:08)
[2019-01-02] MEDS: MONTELUKAST SODIUM 10 MG TABLET PO SCH (21:08)
[2019-01-02] MEDS: ATORVASTATIN CALCIUM 40 MG TABLET PO SCH (21:08)
[2019-01-03 05:02] LABS: ABSOLUTE BASOPHILS # (AUTO) 0.1 10^3/uL (0.0-0.2); ABSOLUTE EOSINOPHILS # (AUTO) 0.3 10^3/uL (0.0-0.6); ABSOLUTE LYMPHOCYTES (AUTO) 1.2 10^3/uL (0.5-4.7); ABSOLUTE MONOCYTES (AUTO) 0.7 10^3/uL (0.1-1.4); BASOPHILS % (AUTO) 0.9 % (0-2); EOSINOPHILS % (AUTO) 3.4 % (0-6); LYMPHOCYTES % (AUTO) 14.7 % (13-45); MEAN CORPUSCULAR HGB CONC 32.1 g/dL (32.0-36.0); MEAN CORPUSCULAR VOLUME 84 fl (80-97); MONOCYTES % (AUTO) 8.2 % (3-13); PLATELET COUNT 253 10^3/uL (150-450); RED BLOOD COUNT 3.32 10^6/uL (3.72-5.28); RED CELL DISTRIBUTION WIDTH 17.2 % (11.5-14.0); SEGMENTED NEUTROPHILS % (AUTO) 72.8 % (42-78); TOTAL CELLS COUNTED % (AUTO) 100 %; WHITE BLOOD COUNT 8.3 10^3/uL (4.0-10.5)
[2019-01-03] MEDS: HEPARIN SOD (PORCINE) 5,000 UNIT/ML 1 ML SYRINGE SUBCUT SCH ×3 (05:05→21:13)
[2019-01-03] MEDS: PANTOPRAZOLE SODIUM 20 MG TABLET.DR PO SCH (05:05)
[2019-01-03 05:25] LABS: ALANINE AMINOTRANSFERASE 18 U/L (9-52); ALKALINE PHOSPHATASE 53 U/L (38-126); ASPARTATE AMINO TRANSFERASE 18 U/L (14-36); BILIRUBIN,DIRECT 0.3 mg/dL (0.0-0.4); BILIRUBIN,TOTAL 0.4 mg/dL (0.2-1.3); BLOOD UREA NITROGEN 34 mg/dL (7-20); CALCIUM 9.2 mg/dL (8.4-10.2); CHLORIDE 90 mmol/L (98-107); GLUCOSE 120 mg/dL (75-110); POTASSIUM 5.4 mmol/L (3.6-5.0); SODIUM 137.9 mmol/L (137-145); TOTAL PROTEIN 5.7 g/dL (6.3-8.2)
[2019-01-03 05:39] LABS: ANION GAP 5 (5-19)
[2019-01-03 05:41] LABS: CARBON DIOXIDE 43 mmol/L (22-30)
[2019-01-03] MEDS: CALCIUM CARBONATE 250 MG/VITAMIN D3 125 UNIT TABLET PO SCH (09:58)
[2019-01-03] MEDS: CETIRIZINE 10 MG TABLET PO SCH (09:58)
[2019-01-03] MEDS: AMLODIPINE BESYLATE 2.5 MG TABLET PO SCH (09:58)
[2019-01-03] MEDS: CLOPIDOGREL BISULFATE 75 MG TABLET PO SCH (09:59)
[2019-01-03] MEDS: MAGNESIUM OXIDE 400 MG TABLET PO SCH (09:59)
[2019-01-03] MEDS: LOSARTAN POTASSIUM 25 MG TABLET PO SCH ×2 (09:59→21:21)
[2019-01-03] MEDS: ASPIRIN 81 MG TABLET, ENT COATED PO SCH (09:59)
[2019-01-03] MEDS: METOPROLOL SUCCINATE 25 MG TAB.SR.24H PO SCH (09:59)
[2019-01-03] MEDS: FLUTICASONE NASAL SPRAY 50 MCG/SPRY 120 SPRAY/16 GM NASL SCH ×2 (09:59→21:20)
[2019-01-03] MEDS: FLUTICASONE/VILANTEROL 200-25 MCG/DOSE IH SCH (09:59)
[2019-01-03] MEDS: LIOTHYRONINE SODIUM 5 MCG TABLET PO SCH (09:59)
[2019-01-03] MEDS: DOCUSATE SODIUM 100 MG CAPSULE PO SCH ×2 (10:00→17:13)
[2019-01-03] MEDS: NYSTATIN/TRIAMCIN CREAM 15 GM TP SCH ×4 (10:01→21:13)
[2019-01-03] MEDS: FUROSEMIDE 20 MG TABLET PO SCH (10:01)
--- NOTE | 2019-01-03 11:31 | PDOC PROGRESS REPORT ---
Subjective Progress Note for:: 01/03/19 Subjective:: 73 year old female with a past medical history of post polio syndrome, morbid obesity, hypoventilation syndrome, obstructive sleep apnea, pulmonary hypertension, diabetes, diastolic heart failure, opiate dependent chronic pain, hypothyroidism, coronary artery disease with stents and a bedbound state with chronic left leg cellulitis. Patient presents with 12 hours of shortness of breath prompting evaluation in the emergency department. She is found to have a blood glucose of 47, patient is on glyburide and metformin despite repeated A1c less than 7. Patient receives D50 and is otherwise found to have hypothermia, hypoxia and hypercapnia with a venous blood gas of 143. She started on BiPAP and referred to the hospitalist for admission. Echocardiogram October 2018 reveals pulmonary hypertension, moderate aortic regurgitation and diastolic heart failure with preserved ejection fraction. Patient denies chest pain nausea vomiting. She admits to noncompliance with trilogy positive pressure air. 12/29/[id number]-nxqg-old female with history of multiple medical problems including morbid obesity, hypoventilation syndrome, obstructive sleep apnea, pulmonary hypertension chronic diastolic heart failure chronic pain dependent see, hypothyroidism, carotid disease with stent placements, bedbound status admitted for shortness of breath requiring BiPAP. Her PCO2 in the ER is 143. It was improved to 48 this morning patient wants to be noncompliant with her BiPAP. Requesting to take off the BiPAP wants to eat 1 to drink appetite explained to her that pulse oxes are dropping without BiPAP she needs to be on it at least another 48 hours she reluctantly agreed but requesting for sips of water once in a while. 12/30/2018-no acute events in the last 24 hours. Patient is compliant with BiPAP. PCO2 this morning is 48. Comfortably in the bed communicating well. She wants to see Dr. Sanders during the hospital stay. Pulse ox is 100% on 5 L. 12/31/2018-no acute events in the last 24 hours. Patient is off the BiPAP presently on 5 L nasal cannula pulse ox is 100%. Comfortable in the bed communicating well. She wants to fluid restriction to be taken off she wants to drink more fluids. Explained to her that she has a heart failure and need to be on fluid restriction. She is also on Lasix at this point. Patient is expressing desire to go back home when she is stable. 01/01/2019-no acute events in the last 24 hours. Presently on oxygen via nasal cannula. Pulse oxes percent on 35% oxygen comfortably in the bed communicating well expressing desire to go home. I talked to her about senior care placement but patient flatly refusing. Patient agreed for palliative care consult. 01/02/2019-no acute events in the last 24 hours. Seen by the pulmonary. They are okay for the patient to go home if stable and resume trilogy. Patient is complaining of itchiness and dryness in the pelvic area requesting nystatin cream. Potassium is 5.5 to stop potassium supplementation and to recheck labs tomorrow. 05/06/2019-no acute events in the last 24 hours. Patient is afebrile. She is complaining of burning urination on foul-smelling urine. Plan to check for the urinary tract infection. Start on Rocephin 2 g IV daily. Palliative care consult was requested as per the patient request. Reason For Visit: HYPERCAPNIC RESP FAILURE,DIASTOLIC HF Physical Exam Vital Signs: Temp Pulse Resp BP Pulse Ox 97.6 F 58 L 23 H 125/27 L 99 01/03/19 07:03 01/03/19 07:03 01/03/19 07:03 01/03/19 07:03 01/03/19 08:00 Intake & Output 01/02/19 01/03/19 01/04/19 06:59 06:59 06:59 Intake Total 592 530 Output Total 750 1510 Balance -158 -980 Weight 116.6 kg 115.2 kg General appearance: PRESENT: no acute distress, obese Head exam: PRESENT: atraumatic Eye exam: PRESENT: PERRLA Mouth exam: PRESENT: moist, tongue midline Neck exam: ABSENT: carotid bruit, JVD, lymphadenopathy, thyromegaly Respiratory exam: PRESENT: decreased breath sounds Cardiovascular exam: PRESENT: diastolic murmur, tachycardia GI/Abdominal exam: PRESENT: normal bowel sounds, soft. ABSENT: distended, guarding, mass, organolmegaly, rebound, tenderness Rectal exam: PRESENT: deferred Neurological exam: PRESENT: alert, awake, oriented to person, oriented to place, oriented to time, oriented to situation, CN II-XII grossly intact. ABSENT: motor sensory deficit Psychiatric exam: PRESENT: appropriate affect, normal mood. ABSENT: homicidal ideation, suicidal ideation Results Laboratory Results: 01/03/19 04:47 01/03/19 04:47 01/03/19 01/03/19 04:47 04:47 WBC 8.3 RBC 3.32 L Hgb 9.0 L Hct 28.0 L MCV 84 MCH 27.0 MCHC 32.1 RDW 17.2 H Plt Count 253 Seg Neutrophils % 72.8 Lymphocytes % 14.7 Monocytes % 8.2 Eosinophils % 3.4 Basophils % 0.9 Absolute Neutrophils 6.0 Absolute Lymphocytes 1.2 Absolute Monocytes 0.7 Absolute Eosinophils 0.3 Absolute Basophils 0.1 Sodium 137.9 Potassium 5.4 H Chloride 90 L Carbon Dioxide 43 H* Anion Gap 5 BUN 34 H Creatinine 0.72 Est GFR ( Amer) > 60 Est GFR (Non-Af Amer) > 60 Glucose 120 H Calcium 9.2 Magnesium 2.2 Total Bilirubin 0.4 AST 18 ALT 18 Alkaline Phosphatase 53 Total Protein 5.7 L Albumin 3.0 L 12/27/18 21:55 Troponin I 0.013 NT-Pro-B Natriuret Pep 6540 H Impressions: Chest X-Ray 12/29/18 07:00 IMPRESSION: Convex leftward midthoracic scoliosis. No acute infiltrates. No cardiomegaly Assessment and Plan - Diagnosis (1) Acute and chronic respiratory failure Qualifiers: Respiratory failure complication: hypercapnia Qualified Code(s): J96.22 - Acute and chronic respiratory failure with hypercapnia Is this a current diagnosis for this admission?: Yes Plan: Secondary to pulmonary hypertension, morbid obesity hypoventilation syndrome with hypercapnic respiratory failure, trial of BiPAP in cervical extension. Avoiding narcotics and sedatives causing respiratory depression. Education for use of trilogy 12/29/2018-patient was admitted for acute on chronic respiratory failure with retention of CO2 most likely secondary to hypoventilation syndrome. On admission PCO2 is 143 improved to 48 2 this morning with BiPAP. Pulmonary consult is going to be requested. Plan is to continue the BiPAP and nebulizer treatments. 12/30/2018-patient admitted with acute on chronic respiratory failure with hypercapnia. PCO2 this morning is 48. Patient on BiPAP on 5 L oxygen pulse ox is 100% today. Chest bilateral entry was decreased no wheezing no crepitations. Plan is to continue the BiPAP PRN and nebulizer treatments and oxygen supplementation. Consult was placed for Dr. Sanders. The blood cultures so far negative. 12/31/[id number]-jkny-old female with multiple medical problems admitted for acute on chronic respiratory failure with hypercapnia. PCO2 this morning is 46. Presently on oxygen via nasal cannula at 5 L. Pulse ox is 100%. The blood cultures are negative so far. 01/01/2019-admitted for acute on chronic respiratory failure with hypercapnia. PCO2 is a 42 this morning. Improving. Presently on 35% oxygen with BiPAP pulse ox 100%. Chest x-ray was negative for pneumonia. Blood cultures are negative so far. 01/02/[id number]-bixo-old female with multiple medical problems including obesity, obstructive sleep apnea, pulmonary hypertension admitted for COPD exacerbation with acute on chronic respiratory failure with hypoxia and hypercapnia. PCO2 is 41 today. Improving. pulse ox is 98% on 4 L. 05/06/2019-patient admitted with acute on chronic respiratory failure with hypoxia. PCO2 this morning 43. Pulse ox is 99% on 2 L. Improving oxygen requirements. Not in distress. (2) Hypoglycemia Is this a current diagnosis for this admission?: Yes Plan: A1c less than 7. Multiple recent episodes of hypoglycemia, discontinue glyburide and metformin with education. 12/29/2018-patient's latest blood sugar is 75. Glyburide and metformin on hold. 12/30/2018-patient's latest blood sugar is 102. Presently on insulin sliding scale and glyburide and metformin are on hold. 12/31/2018-patient's latest blood sugar is 154. Presently on insulin sliding sca le glyburide and Metformin is on hold. Dietary education was provided. Weight loss exercise lifestyle modifications are discussed with the patient and dietary consult was done. 01/01/2019-patient latest blood sugar is 147 stable. 01/02/2018-patient Carlos's blood sugar is 122 stable. Patient is off glyburide and metformin. 01/03/2019-latest blood sugars are 120. Stable. (3) Hypothermia Qualifiers: Encounter type: initial encounter Qualified Code(s): T68.XXXA - Hypothermia, initial encounter Is this a current diagnosis for this admission?: Yes (4) Acute on chronic diastolic (congestive) heart failure Is this a current diagnosis for this admission?: Yes Plan: Complicated by severe pulmonary hypertension and aortic regurgitation. Optimize blood pressure, ANGELIQUE inhibitor and Norvasc. 12/29/2018-patient has history of pulmonary hypertension, aortic regurgitation. She is also has history of chronic diastolic heart failure. Admitted with acute on chronic diastolic heart failure. Chest x-ray does not show evidence of fluid overload but cardiomegaly. Currently on Lasix 40 mg every 12 hours. Plan to decrease the Lasix to 40 mg IV once a day. 12/30/2018-patient has history of morbid obesity, pulmonary hypertension, aortic regurgitation. She also has history of chronic diastolic heart failure. Chest x-ray shows cardiomegaly but no fluid overload. Present on Lasix 20 mg once a day. Blood pressure today is 150/48 is stable. Plan is to continue the present management. 12/31/2018-patient admitted with acute on chronic diastolic heart failure. Complicated by morbid obesity, pulmonary hypertension, aortic regurgitation. Chest x-ray shows cardiomegaly no evidence of fluid overload. Presently on Lasix 20 mg once a day and fluid restriction 1500 cc/day. Plan is to continue the present management. 01/01/2019-patient is presently on Lasix 20 mg once a day and also on fluid restriction. Not in fluid overload. 01/02/2019-patient is presently on Lasix 20 mg p.o. daily and on fluid restriction, not in fluid overload today. 01/03/2019-patient has history of acute on chronic congestive heart failure on p.o. Lasix. She is also on fluid restriction. Not in fluid overload. Plan is to continue the present management. (5) DNR (do not resuscitate) Is this a current diagnosis for this admission?: Yes (6) Lower urinary tract symptoms Is this a current diagnosis for this admission?: Yes Plan: 01/03/2019-plan is to send for the urine analysis urine culture today started on IV Rocephin 2 g daily. - Time Time Spent with patient: 25-34 minutes Medications reviewed and adjusted accordingly: Yes Anticipated discharge: [facility]
[2019-01-03] MEDS ORDERED: SODIUM POLYSTYRENE SULFONATE 15 GM/60 ML PO ONE (12:30)
[2019-01-03] MEDS: CEFTRIAXONE 2 GM/D5W RTU 2 GM/50 ML RTUPB IV SCH (13:39)
[2019-01-03] MEDS ORDERED: NYSTATIN/TRIAMCIN CREAM 15 GM ONE (19:01)
[2019-01-03] MEDS: ATORVASTATIN CALCIUM 40 MG TABLET PO SCH (21:13)
[2019-01-03] MEDS: MONTELUKAST SODIUM 10 MG TABLET PO SCH (21:13)
[2019-01-03] MEDS: ROPINIROLE HCL 1 MG TABLET PO SCH (21:13)
[2019-01-04] MEDS: HEPARIN SOD (PORCINE) 5,000 UNIT/ML 1 ML SYRINGE SUBCUT SCH ×3 (06:13→21:40)
[2019-01-04] MEDS: PANTOPRAZOLE SODIUM 20 MG TABLET.DR PO SCH (06:14)
[2019-01-04 08:51] LABS: ABSOLUTE BASOPHILS # (AUTO) 0.1 10^3/uL (0.0-0.2); ABSOLUTE EOSINOPHILS # (AUTO) 0.4 10^3/uL (0.0-0.6); ABSOLUTE LYMPHOCYTES (AUTO) 1.2 10^3/uL (0.5-4.7); ABSOLUTE MONOCYTES (AUTO) 0.8 10^3/uL (0.1-1.4); ABSOLUTE NEUT (AUTO) 6.1 10^3/uL (1.7-8.2); BASOPHILS % (AUTO) 0.9 % (0-2); EOSINOPHILS % (AUTO) 4.2 % (0-6); HEMATOCRIT 26.8 % (36.0-47.0); HEMOGLOBIN 8.6 g/dL (12.0-15.5); LYMPHOCYTES % (AUTO) 14.3 % (13-45); MEAN CORPUSCULAR HEMOGLOBIN 26.6 pg (27.0-33.4); MEAN CORPUSCULAR VOLUME 83 fl (80-97); MONOCYTES % (AUTO) 8.9 % (3-13); PLATELET COUNT 256 10^3/uL (150-450); RED BLOOD COUNT 3.23 10^6/uL (3.72-5.28); SEGMENTED NEUTROPHILS % (AUTO) 71.7 % (42-78); TOTAL CELLS COUNTED % (AUTO) 100 %; WHITE BLOOD COUNT 8.6 10^3/uL (4.0-10.5)
--- NOTE | 2019-01-04 09:55 | PDOC PROGRESS REPORT ---
Subjective Progress Note for:: 01/04/19 Subjective:: 73 year old female with a past medical history of post polio syndrome, morbid obesity, hypoventilation syndrome, obstructive sleep apnea, pulmonary hypertension, diabetes, diastolic heart failure, opiate dependent chronic pain, hypothyroidism, coronary artery disease with stents and a bedbound state with chronic left leg cellulitis. Patient presents with 12 hours of shortness of breath prompting evaluation in the emergency department. She is found to have a blood glucose of 47, patient is on glyburide and metformin despite repeated A1c less than 7. Patient receives D50 and is otherwise found to have hypothermia, hypoxia and hypercapnia with a venous blood gas of 143. She started on BiPAP and referred to the hospitalist for admission. Echocardiogram October 2018 reveals pulmonary hypertension, moderate aortic regurgitation and diastolic heart failure with preserved ejection fraction. Patient denies chest pain nausea vomiting. She admits to noncompliance with trilogy positive pressure air. 12/29/[id number]-rcvk-old female with history of multiple medical problems including morbid obesity, hypoventilation syndrome, obstructive sleep apnea, pulmonary hypertension chronic diastolic heart failure chronic pain dependent see, hypothyroidism, carotid disease with stent placements, bedbound status admitted for shortness of breath requiring BiPAP. Her PCO2 in the ER is 143. It was improved to 48 this morning patient wants to be noncompliant with her BiPAP. Requesting to take off the BiPAP wants to eat 1 to drink appetite explained to her that pulse oxes are dropping without BiPAP she needs to be on it at least another 48 hours she reluctantly agreed but requesting for sips of water once in a while. 12/30/2018-no acute events in the last 24 hours. Patient is compliant with BiPAP. PCO2 this morning is 48. Comfortably in the bed communicating well. She wants to see Dr. Sanders during the hospital stay. Pulse ox is 100% on 5 L. 12/31/2018-no acute events in the last 24 hours. Patient is off the BiPAP presently on 5 L nasal cannula pulse ox is 100%. Comfortable in the bed communicating well. She wants to fluid restriction to be taken off she wants to drink more fluids. Explained to her that she has a heart failure and need to be on fluid restriction. She is also on Lasix at this point. Patient is expressing desire to go back home when she is stable. 01/01/2019-no acute events in the last 24 hours. Presently on oxygen via nasal cannula. Pulse oxes percent on 35% oxygen comfortably in the bed communicating well expressing desire to go home. I talked to her about fci placement but patient flatly refusing. Patient agreed for palliative care consult. 01/02/2019-no acute events in the last 24 hours. Seen by the pulmonary. They are okay for the patient to go home if stable and resume trilogy. Patient is complaining of itchiness and dryness in the pelvic area requesting nystatin cream. Potassium is 5.5 to stop potassium supplementation and to recheck labs tomorrow. 01/03/2019-no acute events in the last 24 hours. Patient is afebrile. She is complaining of burning urination on foul-smelling urine. Plan to check for the urinary tract infection. Start on Rocephin 2 g IV daily. Palliative care consult was requested as per the patient request. 01/04/2019-no acute events in the last 24 hours. T-max is 98.5. Urine cultures came back positive for gram-negative rods presently on IV Rocephin. Started on levo floxacillin from today. once stable patient is expressing desire to go back home. Reason For Visit: HYPERCAPNIC RESP FAILURE,DIASTOLIC HF Physical Exam Vital Signs: Temp Pulse Resp BP Pulse Ox 98.1 F 52 L 17 118/33 L 97 01/04/19 08:00 01/04/19 08:00 01/04/19 08:00 01/04/19 08:00 01/04/19 04:00 Intake & Output 01/03/19 01/04/19 01/05/19 06:59 06:59 06:59 Intake Total 530 1087 Output Total 1510 1350 Balance -980 -263 Weight 115.2 kg 114 kg General appearance: PRESENT: no acute distress, obese Head exam: PRESENT: atraumatic Eye exam: PRESENT: PERRLA Mouth exam: PRESENT: moist, tongue midline Teeth exam: PRESENT: poor dentation Neck exam: ABSENT: carotid bruit, JVD, lymphadenopathy, thyromegaly Respiratory exam: PRESENT: decreased breath sounds Cardiovascular exam: PRESENT: diastolic murmur, tachycardia Vascular exam: PRESENT: normal capillary refill GI/Abdominal exam: PRESENT: normal bowel sounds, soft. ABSENT: distended, guarding, mass, organolmegaly, rebound, tenderness Rectal exam: PRESENT: deferred Extremities exam: PRESENT: full ROM. ABSENT: calf tenderness, clubbing, pedal edema Neurological exam: PRESENT: alert, awake, oriented to person, oriented to place, oriented to time, oriented to situation, CN II-XII grossly intact. ABSENT: motor sensory deficit Psychiatric exam: PRESENT: appropriate affect, normal mood. ABSENT: homicidal ideation, suicidal ideation Results Laboratory Results: 01/04/19 08:12 01/03/19 04:47 01/04/19 01/04/19 08:12 08:12 WBC 8.6 RBC 3.23 L Hgb 8.6 L Hct 26.8 L MCV 83 MCH 26.6 L MCHC 32.0 RDW 18.0 H Plt Count 256 Seg Neutrophils % 71.7 Lymphocytes % 14.3 Monocytes % 8.9 Eosinophils % 4.2 Basophils % 0.9 Absolute Neutrophils 6.1 Absolute Lymphocytes 1.2 Absolute Monocytes 0.8 Absolute Eosinophils 0.4 Absolute Basophils 0.1 Magnesium 1.8 12/27/18 21:55 Troponin I 0.013 NT-Pro-B Natriuret Pep 6540 H Impressions: Chest X-Ray 12/29/18 07:00 IMPRESSION: Convex leftward midthoracic scoliosis. No acute infiltrates. No cardiomegaly Assessment and Plan - Diagnosis (1) Acute and chronic respiratory failure Qualifiers: Respiratory failure complication: hypercapnia Qualified Code(s): J96.22 - Acute and chronic respiratory failure with hypercapnia Is this a current diagnosis for this admission?: Yes Plan: Secondary to pulmonary hypertension, morbid obesity hypoventilation syndrome with hypercapnic respiratory failure, trial of BiPAP in cervical extension. Avoiding narcotics and sedatives causing respiratory depression. Education for use of trilogy 12/29/2018-patient was admitted for acute on chronic respiratory failure with retention of CO2 most likely secondary to hypoventilation syndrome. On admission PCO2 is 143 improved to 48 2 this morning with BiPAP. Pulmonary consult is going to be requested. Plan is to continue the BiPAP and nebulizer treatments. 12/30/2018-patient admitted with acute on chronic respiratory failure with hypercapnia. PCO2 this morning is 48. Patient on BiPAP on 5 L oxygen pulse ox is 100% today. Chest bilateral entry was decreased no wheezing no crepitations. Plan is to continue the BiPAP PRN and nebulizer treatments and oxygen supplementation. Consult was placed for Dr. Sanders. The blood cultures so far negative. 12/31/[id number]-lrfc-old female with multiple medical problems admitted for acute on chronic respiratory failure with hypercapnia. PCO2 this morning is 46. Presently on oxygen via nasal cannula at 5 L. Pulse ox is 100%. The blood cultures are negative so far. 01/01/2019-admitted for acute on chronic respiratory failure with hypercapnia. PCO2 is a 42 this morning. Improving. Presently on 35% oxygen with BiPAP pulse ox 100%. Chest x-ray was negative for pneumonia. Blood cultures are negative so far. 01/02/[id number]-omwy-old female with multiple medical problems including obesity, obstructive sleep apnea, pulmonary hypertension admitted for COPD exacerbation with acute on chronic respiratory failure with hypoxia and hypercapnia. PCO2 is 41 today. Improving. pulse ox is 98% on 4 L. 01/03/2019-patient admitted with acute on chronic respiratory failure with hypoxia. PCO2 this morning 43. Pulse ox is 99% on 2 L. Improving oxygen requirements. Not in distress. 01/04/2019-pulse ox today is 97% on 4 L. Patient on on and off BiPAP. Pulmonary consult was done during the hospital stay once he is stable patient is going home with a trilogy. (2) Hypoglycemia Is this a current diagnosis for this admission?: Yes Plan: A1c less than 7. Multiple recent episodes of hypoglycemia, discontinue glyburide and metformin with education. 12/29/2018-patient's latest blood sugar is 75. Glyburide and metformin on hold. 12/30/2018-patient's latest blood sugar is 102. Presently on insulin sliding scale and glyburide and metformin are on hold. 12/31/2018-patient's latest blood sugar is 154. Presently on insulin sliding scale glyburide and Metformin is on hold. Dietary education was provided. Weight loss exercise lifestyle modifications are discussed with the patient and dietary consult was done. 01/01/2019-patient latest blood sugar is 147 stable. 01/02/2018-patient Carlos's blood sugar is 122 stable. Patient is off glyburide and metformin. 01/03/2019-latest blood sugars are 120. Stable. 01/04/2019-patient's blood sugar today is around 120. Stable. Patient is presently on insulin sliding scale before meals and at bedtime. Plan is to continue the present management. (3) Hypothermia Qualifiers: Encounter type: initial encounter Qualified Code(s): T68.XXXA - Hypothermia, initial encounter Is this a current diagnosis for this admission?: Yes Plan: Secondary to hypoglycemia, resolved 12/29/2018-hypothermia most likely secondary to hypoglycemia is resolved. Temperature today is 98.2. 22,019-patient came in with hypothermia which was resolved. Today's temperature is 98.5. (4) Acute on chronic diastolic (congestive) heart failure Is this a current diagnosis for this admission?: Yes Plan: Complicated by severe pulmonary hypertension and aortic regurgitation. Optimize blood pressure, ANGELIQUE inhibitor and Norvasc. 12/29/2018-patient has history of pulmonary hypertension, aortic regurgitation. She is also has history of chronic diastolic heart failure. Admitted with acute on chronic diastolic heart failure. Chest x-ray does not show evidence of fluid overload but cardiomegaly. Currently on Lasix 40 mg every 12 hours. Plan to decrease the Lasix to 40 mg IV once a day. 12/30/2018-patient has history of morbid obesity, pulmonary hypertension, aortic regurgitation. She also has history of chronic diastolic heart failure. Chest x-ray shows cardiomegaly but no fluid overload. Present on Lasix 20 mg once a day. Blood pressure today is 150/48 is stable. Plan is to continue the present management. 12/31/2018-patient admitted with acute on chronic diastolic heart failure. Complicated by morbid obesity, pulmonary hypertension, aortic regurgitation. Chest x-ray shows cardiomegaly no evidence of fluid overload. Presently on Lasix 20 mg once a day and fluid restriction 1500 cc/day. Plan is to continue the present management. 01/01/2019-patient is presently on Lasix 20 mg once a day and also on fluid restriction. Not in fluid overload. 01/02/2019-patient is presently on Lasix 20 mg p.o. daily and on fluid restriction, not in fluid overload today. 01/03/2019-patient has history of acute on chronic congestive heart failure on p.o. Lasix. She is also on fluid restriction. Not in fluid overload. Plan is to continue the present management. 01/04/2019-patient has history of acute on chronic congestive heart failure on p.o. Lasix. Not in fluid overload. Plan is to continue the present management. (5) DNR (do not resuscitate) Is this a current diagnosis for this admission?: Yes (6) Lower urinary tract symptoms Is this a current diagnosis for this admission?: Yes Plan: 01/03/2019-plan is to send for the urine analysis urine culture today started on IV Rocephin 2 g daily. 01/04/2019-urine culture came back positive for gram-negative rods. Presently on IV Rocephin started on po levofloxacillin from today. - Time Time Spent with patient: 15-24 minutes Medications reviewed and adjusted accordingly: Yes Anticipated discharge: Home, Home with Homehealth
[2019-01-04] MEDS: FUROSEMIDE 20 MG TABLET PO SCH (10:09)
[2019-01-04] MEDS: CLOPIDOGREL BISULFATE 75 MG TABLET PO SCH (10:09)
[2019-01-04] MEDS: LOSARTAN POTASSIUM 25 MG TABLET PO SCH ×2 (10:10→21:40)
[2019-01-04] MEDS: DOCUSATE SODIUM 100 MG CAPSULE PO SCH ×2 (10:11→17:10)
[2019-01-04] MEDS: METOPROLOL SUCCINATE 25 MG TAB.SR.24H PO SCH (10:11)
[2019-01-04] MEDS: FLUTICASONE NASAL SPRAY 50 MCG/SPRY 120 SPRAY/16 GM NASL SCH ×2 (10:11→21:39)
[2019-01-04] MEDS: CALCIUM CARBONATE 250 MG/VITAMIN D3 125 UNIT TABLET PO SCH (10:11)
[2019-01-04] MEDS: MAGNESIUM OXIDE 400 MG TABLET PO SCH (10:11)
[2019-01-04] MEDS: LEVOFLOXACIN 500 MG TABLET PO SCH (10:11)
[2019-01-04] MEDS: CETIRIZINE 10 MG TABLET PO SCH (10:11)
[2019-01-04] MEDS: AMLODIPINE BESYLATE 2.5 MG TABLET PO SCH (10:11)
[2019-01-04] MEDS: FLUTICASONE/VILANTEROL 200-25 MCG/DOSE IH SCH (10:12)
[2019-01-04] MEDS: LIOTHYRONINE SODIUM 5 MCG TABLET PO SCH (10:12)
[2019-01-04] MEDS: ASPIRIN 81 MG TABLET, ENT COATED PO SCH (10:12)
[2019-01-04] MEDS: CEFTRIAXONE 2 GM/D5W RTU 2 GM/50 ML RTUPB IV SCH (10:12)
[2019-01-04] MEDS: NYSTATIN/TRIAMCIN CREAM 15 GM TP SCH ×4 (10:13→21:41)
[2019-01-04] MEDS: ROPINIROLE HCL 1 MG TABLET PO SCH (21:40)
[2019-01-04] MEDS: MONTELUKAST SODIUM 10 MG TABLET PO SCH (21:40)
[2019-01-04] MEDS: ATORVASTATIN CALCIUM 40 MG TABLET PO SCH (21:40)
[2019-01-05] MEDS: PANTOPRAZOLE SODIUM 20 MG TABLET.DR PO SCH (05:20)
[2019-01-05] MEDS: HEPARIN SOD (PORCINE) 5,000 UNIT/ML 1 ML SYRINGE SUBCUT SCH ×2 (05:20→14:02)
[2019-01-05 07:09] LABS: ABSOLUTE EOSINOPHILS # (AUTO) 0.3 10^3/uL (0.0-0.6); ABSOLUTE LYMPHOCYTES (AUTO) 1.2 10^3/uL (0.5-4.7); ABSOLUTE MONOCYTES (AUTO) 0.6 10^3/uL (0.1-1.4); BASOPHILS % (AUTO) 0.7 % (0-2); EOSINOPHILS % (AUTO) 5.2 % (0-6); HEMATOCRIT 24.9 % (36.0-47.0); LYMPHOCYTES % (AUTO) 19.7 % (13-45); MEAN CORPUSCULAR HEMOGLOBIN 26.9 pg (27.0-33.4); MEAN CORPUSCULAR HGB CONC 32.2 g/dL (32.0-36.0); MEAN CORPUSCULAR VOLUME 84 fl (80-97); MONOCYTES % (AUTO) 10.1 % (3-13); PLATELET COUNT 238 10^3/uL (150-450); RED BLOOD COUNT 2.98 10^6/uL (3.72-5.28); RED CELL DISTRIBUTION WIDTH 17.5 % (11.5-14.0); SEGMENTED NEUTROPHILS % (AUTO) 64.3 % (42-78); TOTAL CELLS COUNTED % (AUTO) 100 %; WHITE BLOOD COUNT 6.2 10^3/uL (4.0-10.5)
[2019-01-05 07:32] LABS: ALANINE AMINOTRANSFERASE 22 U/L (9-52); ALBUMIN 2.8 g/dL (3.5-5.0); ALKALINE PHOSPHATASE 50 U/L (38-126); ASPARTATE AMINO TRANSFERASE 13 U/L (14-36); BILIRUBIN,DIRECT 0.3 mg/dL (0.0-0.4); BILIRUBIN,TOTAL 0.3 mg/dL (0.2-1.3); BLOOD UREA NITROGEN 33 mg/dL (7-20); CALCIUM 8.7 mg/dL (8.4-10.2); CHLORIDE 89 mmol/L (98-107); GLUCOSE 137 mg/dL (75-110); POTASSIUM 4.6 mmol/L (3.6-5.0); SODIUM 136.8 mmol/L (137-145); TOTAL PROTEIN 5.5 g/dL (6.3-8.2)
[2019-01-05 07:44] LABS: ANION GAP 6 (5-19)
[2019-01-05 07:47] LABS: CARBON DIOXIDE 42 mmol/L (22-30)
[2019-01-05] MEDS: FLUTICASONE/VILANTEROL 200-25 MCG/DOSE IH SCH (11:13)
[2019-01-05] MEDS: FLUTICASONE NASAL SPRAY 50 MCG/SPRY 120 SPRAY/16 GM NASL SCH (11:14)
[2019-01-05] MEDS: ASPIRIN 81 MG TABLET, ENT COATED PO SCH (11:15)
[2019-01-05] MEDS: FUROSEMIDE 20 MG TABLET PO SCH (11:15)
[2019-01-05] MEDS: DOCUSATE SODIUM 100 MG CAPSULE PO SCH (11:15)
[2019-01-05] MEDS: LOSARTAN POTASSIUM 25 MG TABLET PO SCH (11:16)
[2019-01-05] MEDS: METOPROLOL SUCCINATE 25 MG TAB.SR.24H PO SCH (11:16)
[2019-01-05] MEDS: CLOPIDOGREL BISULFATE 75 MG TABLET PO SCH (11:16)
[2019-01-05] MEDS: LEVOFLOXACIN 500 MG TABLET PO SCH (11:16)
[2019-01-05] MEDS: CETIRIZINE 10 MG TABLET PO SCH (11:16)
[2019-01-05] MEDS: CEFTRIAXONE 2 GM/D5W RTU 2 GM/50 ML RTUPB IV SCH (11:16)
[2019-01-05] MEDS: AMLODIPINE BESYLATE 2.5 MG TABLET PO SCH (11:16)
[2019-01-05] MEDS: NYSTATIN/TRIAMCIN CREAM 15 GM TP SCH ×2 (11:17→14:02)
[2019-01-05] MEDS: LIOTHYRONINE SODIUM 5 MCG TABLET PO SCH (11:17)
[2019-01-05] MEDS ORDERED: CALCIUM CARBONATE 250 MG/VITAMIN D3 125 UNIT TABLET PO SCH (12:00)
[2019-01-05 12:22] VITALS: BP 134/50
--- NOTE | 2019-01-05 13:00 | PDOC DISCHARGE SUMMARY ---
General - Admit/Disc Date/PCP Admission Date/Primary Care Provider: 12/28/18 00:27 SAW MARTINEZ MD Discharge Date: 01/05/19 - Discharge Diagnosis (1) Acute and chronic respiratory failure Is this a current diagnosis for this admission?: Yes (2) Hypoglycemia Is this a current diagnosis for this admission?: Yes (3) Hypothermia Is this a current diagnosis for this admission?: Yes (4) Lower urinary tract symptoms Is this a current diagnosis for this admission?: Yes - Additional Information Resuscitation Status: Full Code Discharge Diet: Cardiac Discharge Activity: Activity As Tolerated, Balance Activity w/Rest Prescriptions: Amlodipine Besylate [Norvasc 2.5 mg Tablet] 2.5 mg PO DAILY #30 tablet Fluticasone Propionate [Flonase Nasal Layton 50 Mcg/Layton 16 gm] 2 spray NASL Q12 #1 spray.pump Levofloxacin [Levaquin 500 mg Tablet] 500 mg PO DAILY #4 tablet Losartan Potassium [Cozaar 25 mg Tablet] 25 mg PO Q12 #30 tablet Nystatin/Triamcin [Mycolog-II Cream 15 gm] 1 applic TP QID #1 tube Home Medications: Aspirin [Adult Low Dose Aspirin EC] 81 mg PO DAILY 12/28/18 Atorvastatin Calcium [Lipitor 40 mg Tablet] 40 mg PO QHS 12/28/18 Budesonide/Formoterol Fumarate [Symbicort HFA 160-4.5 mcg Inhaler 6 gm] 2 puff IH Q12 12/28/18 Calcium Citrate/Vitamin D3 [Citracal + D Maximum Caplet] 1 tab PO DAILY 12/28/18 Cetirizine HCl [Zyrtec 10 mg Tablet] 10 mg PO DAILY 12/28/18 Clopidogrel Bisulfate [Plavix 75 mg Tablet] 75 mg PO DAILY 12/28/18 Furosemide [Lasix 40 mg Tablet] 40 mg PO QPM 12/28/18 Glipizide [Glucotrol 10 mg Tablet] 10 mg PO QAM 12/28/18 Ipratropium/Albuterol Sulfate [Duoneb 3 ml Ampul] 3 ml NEB [id number] PRN 12/28/18 Liothyronine Sodium [Cytomel] 10 mcg PO DAILY 12/28/18 Lorazepam [Ativan 0.5 mg Tablet] 0.5 mg PO BIDP PRN 12/28/18 Magnesium Oxide [Mag-Ox 400 mg Tablet] 400 mg PO DAILY 12/28/18 Metformin HCl [Glucophage 500 mg Tablet] 500 mg PO BIDBS 12/28/18 Metoprolol Succinate [Toprol Xl 25 mg Tab.sr] 12.5 mg PO DAILY 12/28/18 Montelukast Sodium [Singulair 10 mg Tablet] 10 mg PO QPM 12/28/18 Nitroglycerin [Nitrostat 0.4 mg (1/150 Gr) Tabs 25/Bottle] 0.4 mg SL Q5MP PRN 12/28/18 Rabeprazole Sodium [Aciphex] 20 mg PO Q6AM 12/28/18 Ropinirole HCl [Requip] 1 mg PO QHS 12/28/18 Amlodipine Besylate [Norvasc 2.5 mg Tablet] 2.5 mg PO DAILY #30 tablet 01/05/19 Docusate Sodium [Colace 100 mg Capsule] 100 mg PO BID capsule 01/05/19 Fluticasone Propionate [Flonase Nasal Layton 50 Mcg/Layton 16 gm] 2 spray NASL Q12 #1 spray.pump 01/05/19 Levofloxacin [Levaquin 500 mg Tablet] 500 mg PO DAILY #4 tablet 01/05/19 Losartan Potassium [Cozaar 25 mg Tablet] 25 mg PO Q12 #30 tablet 01/05/19 Nystatin/Triamcin [Mycolog-II Cream 15 gm] 1 applic TP QID #1 tube 01/05/19 History of Present Illness History of Present Illness: ALBERTO DIAL is a 73 year old female Hospital Course Hospital Course: 73 year old female with a past medical history of post polio syndrome, morbid obesity, hypoventilation syndrome, obstructive sleep apnea, pulmonary hypertension, diabetes, diastolic heart failure, opiate dependent chronic pain, hypothyroidism, coronary artery disease with stents and a bedbound state with chronic left leg cellulitis. Patient presents with 12 hours of shortness of breath prompting evaluation in the emergency department. She is found to have a blood glucose of 47, patient is on glyburide and metformin despite repeated A1c less than 7. Patient receives D50 and is otherwise found to have hypothermia, hypoxia and hypercapnia with a venous blood gas of 143. She started on BiPAP and referred to the hospitalist for admission. Echocardiogram October 2018 reveals pulmonary hypertension, moderate aortic regurgitation and diastolic heart failure with preserved ejection fraction. Patient denies chest pain nausea vomiting. She admits to noncompliance with trilogy positive pressure air. 12/29/[id number]-xyfs-old female with history of multiple medical problems including morbid obesity, hypoventilation syndrome, obstructive sleep apnea, pulmonary hypertension chronic diastolic heart failure chronic pain dependent see, hypothyroidism, carotid disease with stent placements, bedbound status admitted for shortness of breath requiring BiPAP. Her PCO2 in the ER is 143. It was improved to 48 this morning patient wants to be noncompliant with her BiPAP. Requesting to take off the BiPAP wants to eat 1 to drink appetite explained to her that pulse oxes are dropping without BiPAP she needs to be on it at least another 48 hours she reluctantly agreed but requesting for sips of water once in a while. 12/30/2018-no acute events in the last 24 hours. Patient is compliant with BiPAP. PCO2 this morning is 48. Comfortably in the bed communicating well. She wants to see Dr. Sanders during the hospital stay. Pulse ox is 100% on 5 L. 12/31/2018-no acute events in the last 24 hours. Patient is off the BiPAP presently on 5 L nasal cannula pulse ox is 100%. Comfortable in the bed communicating well. She wants to fluid restriction to be taken off she wants to drink more fluids. Explained to her that she has a heart failure and need to be on fluid restriction. She is also on Lasix at this point. Patient is expressing desire to go back home when she is stable. 01/01/2019-no acute events in the last 24 hours. Presently on oxygen via nasal cannula. Pulse oxes percent on 35% oxygen comfortably in the bed communicating well expressing desire to go home. I talked to her about usp placement but patient flatly refusing. Patient agreed for palliative care consult. 01/02/2019-no acute events in the last 24 hours. Seen by the pulmonary. They are okay for the patient to go home if stable and resume trilogy. Patient is complaining of itchiness and dryness in the pelvic area requesting nystatin cream. Potassium is 5.5 to stop potassium supplementation and to recheck labs tomorrow. 01/03/2019-no acute events in the last 24 hours. Patient is afebrile. She is complaining of burning urination on foul-smelling urine. Plan to check for the urinary tract infection. Start on Rocephin 2 g IV daily. Palliative care consult was requested as per the patient request. 01/04/2019-no acute events in the last 24 hours. T-max is 98.5. Urine cultures came back positive for gram-negative rods presently on IV Rocephin. Started on levo floxacillin from today. once stable patient is expressing desire to go back home. Hospital course: (1) Acute and chronic respiratory failure Secondary to pulmonary hypertension, morbid obesity hypoventilation syndrome with hypercapnic respiratory failure, trial of BiPAP in cervical extension. Avoiding narcotics and sedatives causing respiratory depression. Education for use of trilogy 12/29/2018-patient was admitted for acute on chronic respiratory failure with retention of CO2 most likely secondary to hypoventilation syndrome. On admission PCO2 is 143 improved to 48 2 this morning with BiPAP. Pulmonary consult is going to be requested. Plan is to continue the BiPAP and nebulizer treatments. 12/30/2018-patient admitted with acute on chronic respiratory failure with hypercapnia. PCO2 this morning is 48. Patient on BiPAP on 5 L oxygen pulse ox is 100% today. Chest bilateral entry was decreased no wheezing no crepitations. Plan is to continue the BiPAP PRN and nebulizer treatments and oxygen supplementation. Consult was placed for Dr. Sanders. The blood cultures so far negative. 12/31/[id number]-ekkl-old female with multiple medical problems admitted for acute on chronic respiratory failure with hypercapnia. PCO2 this morning is 46. Presently on oxygen via nasal cannula at 5 L. Pulse ox is 100%. The blood cultures are negative so far. 01/01/2019-admitted for acute on chronic respiratory failure with hypercapnia. PCO2 is a 42 this morning. Improving. Presently on 35% oxygen with BiPAP pulse ox 100%. Chest x-ray was negative for pneumonia. Blood cultures are negative s o far. 01/02/[id number]-brrw-old female with multiple medical problems including obesity, obstructive sleep apnea, pulmonary hypertension admitted for COPD exacerbation with acute on chronic respiratory failure with hypoxia and hypercapnia. PCO2 is 41 today. Improving. pulse ox is 98% on 4 L. 01/03/2019-patient admitted with acute on chronic respiratory failure with hypoxia. PCO2 this morning 43. Pulse ox is 99% on 2 L. Improving oxygen requirements. Not in distress. 01/04/2019-pulse ox today is 97% on 4 L. Patient on on and off BiPAP. Pulmonary consult was done during the hospital stay once he is stable patient is going home with a trilogy. (2) Hypoglycemia A1c less than 7. Multiple recent episodes of hypoglycemia, discontinue glyburide and metformin with education. 12/29/2018-patient's latest blood sugar is 75. Glyburide and metformin on hold. 12/30/2018-patient's latest blood sugar is 102. Presently on insulin sliding scale and glyburide and metformin are on hold. 12/31/2018-patient's latest blood sugar is 154. Presently on insulin sliding scale glyburide and Metformin is on hold. Dietary education was provided. Weight loss exercise lifestyle modifications are discussed with the patient and dietary consult was done. 01/01/2019-patient latest blood sugar is 147 stable. 01/02/2018-patient Carlos's blood sugar is 122 stable. Patient is off glyburide and metformin. 01/03/2019-latest blood sugars are 120. Stable. 01/04/2019-patient's blood sugar today is around 120. Stable. Patient is presently on insulin sliding scale before meals and at bedtime. Plan is to continue the present management. (3) Hypothermia Secondary to hypoglycemia, resolved 12/29/2018-hypothermia most likely secondary to hypoglycemia is resolved. Temperature today is 98.2. 22,019-patient came in with hypothermia which was resolved. Today's temperature is 98.5. (4) Acute on chronic diastolic (congestive) heart failure Complicated by severe pulmonary hypertension and aortic regurgitation. Optimize blood pressure, ANGELIQUE inhibitor and Norvasc. 12/29/2018-patient has history of pulmonary hypertension, aortic regurgitation. She is also has history of chronic diastolic heart failure. Admitted with acute on chronic diastolic heart failure. Chest x-ray does not show evidence of fluid overload but cardiomegaly. Currently on Lasix 40 mg every 12 hours. Plan to decrease the Lasix to 40 mg IV once a day. 12/30/2018-patient has history of morbid obesity, pulmonary hypertension, aortic regurgitation. She also has history of chronic diastolic heart failure. Chest x-ray shows cardiomegaly but no fluid overload. Present on Lasix 20 mg once a day. Blood pressure today is 150/48 is stable. Plan is to continue the present management. 12/31/2018-patient admitted with acute on chronic diastolic heart failure. Complicated by morbid obesity, pulmonary hypertension, aortic regurgitation. Chest x-ray shows cardiomegaly no evidence of fluid overload. Presently on L asix 20 mg once a day and fluid restriction 1500 cc/day. Plan is to continue the present management. 01/01/2019-patient is presently on Lasix 20 mg once a day and also on fluid restriction. Not in fluid overload. 01/02/2019-patient is presently on Lasix 20 mg p.o. daily and on fluid restriction, not in fluid overload today. 01/03/2019-patient has history of acute on chronic congestive heart failure on p.o. Lasix. She is also on fluid restriction. Not in fluid overload. Plan is to continue the present management. 01/04/2019-patient has history of acute on chronic congestive heart failure on p.o. Lasix. Not in fluid overload. Plan is to continue the present management. (5) DNR (do not resuscitate) (6) Lower urinary tract symptoms 01/03/2019-plan is to send for the urine analysis urine culture today started on IV Rocephin 2 g daily. 01/04/2019-urine culture came back positive for gram-negative rods. Presently on IV Rocephin started on po levofloxacillin from today. Patient is stable and improved. She will be discharged to home and to resume home care. We will give her Levaquin for UTI. She will follow-up with us hospice or palliative care outpatient. I was told that medical social worker will arrange for that. Patient is eager to be discharged to home. Time spent 35 minutes. Physical Exam Vital Signs: Temp Pulse Resp BP Pulse Ox 98.2 F 60 16 134/50 H 96 01/05/19 12:13 01/05/19 12:13 01/05/19 12:13 01/05/19 12:13 01/05/19 12:13 Intake & Output 01/04/19 01/05/19 01/06/19 06:59 06:59 06:59 Intake Total 1087 1010 50 Output Total 1350 1325 Balance -263 -315 50 Weight 251 lb 5.231 oz 258 lb 13.163 oz Exam: General appearance: PRESENT: no acute distress, obese Head exam: PRESENT: atraumatic Eye exam: PRESENT: PERRLA Mouth exam: PRESENT: moist, tongue midline Teeth exam: PRESENT: poor dentation Neck exam: ABSENT: carotid bruit, JVD, lymphadenopathy, thyromegaly Respiratory exam: PRESENT: decreased breath sounds Cardiovascular exam: PRESENT: diastolic murmur, tachycardia Vascular exam: PRESENT: normal capillary refill GI/Abdominal exam: PRESENT: normal bowel sounds, soft. ABSENT: distended, guarding, mass, organolmegaly, rebound, tenderness Rectal exam: PRESENT: deferred Extremities exam: PRESENT: full ROM. ABSENT: calf tenderness, clubbing, pedal edema Neurological exam: PRESENT: alert, awake, oriented to person, oriented to place, oriented to time, oriented to situation, CN II-XII grossly intact. ABSENT: motor sensory deficit Psychiatric exam: PRESENT: appropriate affect, normal mood. ABSENT: homicidal ideation, suicidal ideation Results Laboratory Results: 01/05/19 06:10 01/05/19 06:10 01/05/19 01/05/19 06:10 06:10 WBC 6.2 RBC 2.98 L Hgb 8.0 L Hct 24.9 L MCV 84 MCH 26.9 L MCHC 32.2 RDW 17.5 H Plt Count 238 Seg Neutrophils % 64.3 Lymphocytes % 19.7 Monocytes % 10.1 Eosinophils % 5.2 Basophils % 0.7 Absolute Neutrophils 4.0 Absolute Lymphocytes 1.2 Absolute Monocytes 0.6 Absolute Eosinophils 0.3 Absolute Basophils 0.0 Sodium 136.8 L Potassium 4.6 Chloride 89 L Carbon Dioxide 42 H* Anion Gap 6 BUN 33 H Creatinine 0.59 Est GFR ( Amer) > 60 Est GFR (Non-Af Amer) > 60 Glucose 137 H Calcium 8.7 Magnesium 2.0 Total Bilirubin 0.3 AST 13 L ALT 22 Alkaline Phosphatase 50 Total Protein 5.5 L Albumin 2.8 L 12/27/18 21:55 Troponin I 0.013 NT-Pro-B Natriuret Pep 6540 H Impressions: Chest X-Ray 12/29/18 07:00 IMPRESSION: Convex leftward midthoracic scoliosis. No acute infiltrates. No cardiomegaly Qualifiers - * PATIENT BEING DISCHARGED WITH ANY OF THE FOLLOWING DIAGNOSIS: No Acute Heart Failure Is this a Heart Failure Patient?: No
[2019-01-05] MEDS ORDERED: MAGNESIUM OXIDE 400 MG TABLET PO SCH (17:00)
== END 2019-01-05 16:30 | disposition home health service (06) | DRG 189 ==
LOC: ER 21:26 → EH 12-28 00:27 → 3S 12-28 01:40
PROVIDERS: ADMIT Internal Medicine; ATTEND Internal Medicine
PROC: 5A09557 Assistance with Respiratory Ventilation, Greater than 96 Consecutive Hours, Continuous Positive Airway Pressure (ICD-10-PCS; principal; 2018-12-28)
DX: J96.22 Acute and chronic respiratory failure with hypercapnia (principal); I50.33 Acute on chronic diastolic (congestive) heart failure; E66.2 Morbid (severe) obesity with alveolar hypoventilation; F11.20 Opioid dependence, uncomplicated; L03.116 Cellulitis of left lower limb; N39.0 Urinary tract infection, site not specified; I27.20 Pulmonary hypertension, unspecified; E11.649 Type 2 diabetes mellitus with hypoglycemia without coma; I25.10 Atherosclerotic heart disease of native coronary artery without angina pectoris; G89.29 Other chronic pain; G14 Postpolio syndrome; Z74.01 Bed confinement status; R68.0 Hypothermia, not associated with low environmental temperature; I35.1 Nonrheumatic aortic (valve) insufficiency; B96.89 Other specified bacterial agents as the cause of diseases classified elsewhere; M19.90 Unspecified osteoarthritis, unspecified site; Z91.19 Patient's noncompliance with other medical treatment and regimen; Z95.5 Presence of coronary angioplasty implant and graft
CPT/HCPCS: 36415; 36600; 71045; 80048; 80053; 80307; 81001; 82803; 82962; 83605; 83735; 83880; 84484; 85025; 87040; 87086; 87088; 87186; 93005; 93010; 94660; 96374; 99291; J0696; J1644; J1940; J3490; J7620

== ENCOUNTER 2019-02-04 11:33 | Inpatient (IN) | payer MEDICARE ==
[~2019-02-04 11:33] MED LIST: SUCCINYLCHOLINE CHLORIDE INJ 200 MG/10 ML VIAL ONE
[2019-02-04 12:07] LABS: ABSOLUTE BASOPHILS # (AUTO) 0.1 10^3/uL (0.0-0.2); ABSOLUTE LYMPHOCYTES (AUTO) 0.7 10^3/uL (0.5-4.7); ABSOLUTE MONOCYTES (AUTO) 0.5 10^3/uL (0.1-1.4); ABSOLUTE NEUT (AUTO) 10.6 10^3/uL (1.7-8.2); BASOPHILS % (AUTO) 0.7 % (0-2); EOSINOPHILS % (AUTO) 0.4 % (0-6); HEMATOCRIT 29.3 % (36.0-47.0); HEMOGLOBIN 9.2 g/dL (12.0-15.5); LYMPHOCYTES % (AUTO) 5.7 % (13-45); MEAN CORPUSCULAR HEMOGLOBIN 26.1 pg (27.0-33.4); MEAN CORPUSCULAR HGB CONC 31.3 g/dL (32.0-36.0); MEAN CORPUSCULAR VOLUME 83 fl (80-97); MONOCYTES % (AUTO) 4.4 % (3-13); PLATELET COUNT 426 10^3/uL (150-450); RED BLOOD COUNT 3.51 10^6/uL (3.72-5.28); RED CELL DISTRIBUTION WIDTH 18.4 % (11.5-14.0); SEGMENTED NEUTROPHILS % (AUTO) 88.8 % (42-78); TOTAL CELLS COUNTED % (AUTO) 100 %
[2019-02-04] MEDS ORDERED: METHYLPREDNISOLONE INJ 40 MG/1 ML SDV IV ONE (12:12)
[2019-02-04] MEDS ORDERED: IPRATROPIUM/ALBUTEROL 0.5-2.5 MG/3 ML AMPUL NEB ONE (12:12)
--- NOTE | 2019-02-04 12:12 | ER Document Report ---
ED General - General Chief Complaint: Breathing Difficulty Stated Complaint: SHORTNESS OF BREATH Time Seen by Provider: 02/04/19 11:45 Primary Care Provider: SAW MARTINEZ MD [Primary Care Provider] - Follow up as needed Notes: 73-year-old lady with history of COPD CHF bedbound BiPAP dependent at night presents with shortness of breath. She says "I feel I am dying" and says that she had intermittent shortness of breath for 3 days which is worse. She says that her BiPAP machine broke and she has not been using it. She also says that she is had intermittent central chest pressure nonradiating with no nausea vomiting. TRAVEL OUTSIDE OF THE [place] IN LAST 30 DAYS: No - Related Data Allergies/Adverse Reactions: hydromorphone HCl [From Dilaudid] Allergy (Severe, Verified 12/01/18 04:18) Respiratory arrest codeine [Codeine] Allergy (Intermediate, Verified 12/01/18 04:18) Hallucinations Past Medical History - Social History Smoking Status: Former Smoker Chew tobacco use (# tins/day): No Frequency of alcohol use: None Drug Abuse: None Family History: DM, Hyperlipidemia, Hypertension Patient has suicidal ideation: No Patient has homicidal ideation: No - Past Medical History Cardiac Medical History: Reports: Hx Congestive Heart Failure - Diastolic, Hx Coronary Artery Disease, Hx Heart Attack - cardiac stents x 2, Hx Hypercholesterolemia, Hx Hypertension, Hx Heart Murmur - aortic stenosis Denies: Hx DVT, Hx Pulmonary Embolism Pulmonary Medical History: Reports: Hx Asthma, Hx Bronchitis, Hx COPD, Hx Sleep Apnea - Bipap Denies: Hx Pneumonia, Hx Tuberculosis Neurological Medical History: Denies: Hx Cerebrovascular Accident, Hx Seizures Endocrine Medical History: Reports: Hx Diabetes Mellitus Type 2, Hx Hypothyroidism. Denies: Hx Diabetes Mellitus Type 1, Hx Hyperthyroidism Renal/ Medical History: Denies: Hx Peritoneal Dialysis GI Medical History: Reports: Hx Gastroesophageal Reflux Disease, Hx Ulcer. Denies: Hx Cirrhosis, Hx Hepatitis, Hx Ulcerative Colitis Musculoskeletal Medical History: Reports Hx Arthritis - generalized Skin Medical History: Reports Hx Cellulitis Psychiatric Medical History: Reports: Hx Depression Traumatic Medical History: Denies: Hx Traumatic Brain Injury Infectious Medical History: Denies: Hx Hepatitis, Hx HIV Past Surgical History: Reports: Hx Appendectomy, Hx Colostomy - then reversed, Hx Hysterectomy, Hx Neurologic Surgery - spinal fusion, Hx Orthopedic Surgery - carpal tunnel, polio surgery to left leg. Denies: Hx Pacemaker - Immunizations Immunizations up to date: Yes Hx Diphtheria, Pertussis, Tetanus Vaccination: Yes Hx Pneumococcal Vaccination: 08/18/14 Review of Systems - Review of Systems Notes: REVIEW OF SYSTEMS GEN: Weakness bedbound ENT: Denies sore throat, nasal discharge, ear pain EYES: Denies blurry vision, eye pain, discharge CV: Denies chest pain, palpitations, edema RESP: Shortness of breath GI: Denies abdominal pain, nausea, vomiting, diarrhea MSK: Denies joint pain/swelling, edema, SKIN: Denies rash, skin lesions LYMPH: Denies swollen glands/lymph nodes NEURO: Denies headache, focal weakness or numbness, dizziness PSYCH: Denies depression, suicidal or homicidal ideation PHYSICAL EXAMINATION General: Obese Head: Atraumatic, normocephalic ENT: Mouth normal, oropharynx moist, no exudates or tonsillar enlargement Eyes: Conjunctiva normal, pupils equal, lids normal Neck: No JVD, supple, no guarding CVS: Normal rate, regular rhythm, no murmurs Resp: Tachypneic with decreased air movement and bilateral expiratory wheezes GI: Nondistended, soft, no tenderness to palpation, no rebound or guarding Ext: Left lower extremity deformity, no edema on either side Back: No CVA or midline TTP Skin: No rash, warm Lymphatic: No lymphadeopathy noted Neuro: Awake, alert. Face symmetric. GCS 15. Physical Exam - Vital signs Vitals: Resp BP Pulse Ox 26 H 159/135 H 89 L 02/04/19 12:02 02/04/19 12:02 02/04/19 12:02 Course - Re-evaluation Re-evalutation: 02/04/19 12:12 Presents with acute on chronic respiratory failure, does not need to be intubated but would benefit from BiPAP. Will check chest x-ray for pneumonia treat for COPD and check BNP for CHF. 02/04/19 13:21 Acute on chronic respiratory failureelevated bicarb. Patient was placed on BiPAP. She improved some clinically. Her BNP is grossly elevated she was given a dose of IV Lasix. She is apparently supposed to be on hospice but would like to be admitted so she can feel better. Discussed with Lucy Can nurse practitioner. - Vital Signs Vital signs: Temp Pulse Resp BP Pulse Ox 23 H 144/71 H 91 L 02/04/19 13:01 02/04/19 13:01 02/04/19 13:01 - Laboratory Result Diagrams: 02/04/19 11:55 02/04/19 11:55 Laboratory results interpreted by me: 02/04/19 02/04/19 02/04/19 11:55 11:55 11:55 WBC 12.0 H RBC 3.51 L Hgb 9.2 L Hct 29.3 L MCH 26.1 L MCHC 31.3 L RDW 18.4 H Seg Neutrophils % 88.8 H Lymphocytes % 5.7 L Absolute Neutrophils 10.6 H Sodium 136.0 L Chloride 85 L Carbon Dioxide 41 H* BUN 27 H Glucose 171 H NT-Pro-B Natriuret Pep 87560 H - Diagnostic Test Radiology reviewed: Image reviewed, Reports reviewed - EKG Interpretation by Me EKG shows normal: Sinus rhythm Rate: Normal When compared to previous EKG there are: No significant change - Sickly no ST or T wave changes Critical Care Note - Critical Care Note Total time excluding time spent on procedures (mins): 31 Comments: The above patient is critically ill. Not including procedures, but including direct re-evaluations, speaking with patient and/or consultants, interpreting results, and documenting, I spent the total amount of minute listed listed above on critical care time Discharge - Discharge Clinical Impression: Acute diastolic (congestive) heart failure Acute exacerbation of CHF (congestive heart failure) Qualifiers: Heart failure type: combined systolic and diastolic Qualified Code(s): I50.43 - Acute on chronic combined systolic (congestive) and diastolic (congestive) heart failure Condition: Good Disposition: ADMITTED INPATIENT Admitting Provider: Lilian (Hospitalist) - [facility] HOUSE COORDINATOR Unit Admitted: I[facility]U Referrals: SAW MARTINEZ MD [Primary Care Provider] - Follow up as needed
[2019-02-04 12:29] LABS: BLOOD UREA NITROGEN 27 mg/dL (7-20); CALCIUM 9.3 mg/dL (8.4-10.2); CHLORIDE 85 mmol/L (98-107); GLUCOSE 171 mg/dL (75-110); POTASSIUM 3.8 mmol/L (3.6-5.0)
--- NOTE | 2019-02-04 12:30 | RADIOLOGY REPORT (SQ) ---
EXAM DESCRIPTION: CHEST SINGLE VIEW COMPLETED DATE/TIME: 02/04/2019 12:19 pm REASON FOR STUDY: SOB, CHF- COPD COMPARISON: CT chest 11/11/2017 Chest films 12/29/2018, 12/27/2018, 12/02/2018 EXAM PARAMETERS: NUMBER OF VIEWS: One view. TECHNIQUE: Single frontal radiographic view of the chest acquired. RADIATION DOSE: NA LIMITATIONS: None. FINDINGS: LUNGS AND PLEURA: Chronic pleural thickening along the left lateral costophrenic sulcus. No acute infiltrates. No gross pleural effusion. No pneumothorax. MEDIASTINUM AND HILAR STRUCTURES: No masses. Contour normal. HEART AND VASCULAR STRUCTURES: Moderate cardiomegaly BONES: S shaped thoracic scoliosis HARDWARE: None in the chest. OTHER: No other significant finding. IMPRESSION: Chronic pleural thickening left lateral costophrenic sulcus. Moderate cardiomegaly. No gross acute infiltrates TECHNICAL DOCUMENTATION: JOB ID: [id number] [employer]- All Rights Reserved Reading location - IP/workstation name: [email or web address]
[2019-02-04 12:38] LABS: ANION GAP 10 (5-19)
[2019-02-04 12:39] LABS: CARBON DIOXIDE 41 mmol/L (22-30)
[2019-02-04 12:43] LABS: TROPONIN I 0.064 ng/mL
[2019-02-04] MEDS ORDERED: FUROSEMIDE INJ/PF 40 MG/4 ML SDV IV ONE (13:17)
[2019-02-04] MEDS ORDERED: MAG HYDROX/AL HYDROX/SIMETH SUSP 30 ML UDCUP PO PRN (14:30)
[2019-02-04] MEDS ORDERED: ACETAMINOPHEN 325 MG TABLET PO PRN (14:30)
[2019-02-04] MEDS ORDERED: LORAZEPAM 0.5 MG TABLET PO PRN (14:37)
[2019-02-04] MEDS ORDERED: IPRATROPIUM/ALBUTEROL 0.5-2.5 MG/3 ML AMPUL NEB PRN (14:37)
[2019-02-04] MEDS ORDERED: DEXTROSE 50%-WATER 25 GM/50 ML DISP.SYRIN IV PRN ×2 (14:39)
[2019-02-04] MEDS ORDERED: DEXTROSE 40% GEL 15 GM TUBE PO PRN ×2 (14:39)
[2019-02-04] MEDS ORDERED: GLUCAGON,HUMAN RECOMB 1 MG INJ IM PRN (14:39)
[2019-02-04 15:09] LABS: ARTERIAL BLOOD BASE EXCESS 19.4 mmol/L; ARTERIAL BLOOD H2CO3 3.62 mmol/L (1.05-1.35); ARTERIAL BLOOD HCO3 50.8 mmol/L (20-24); ARTERIAL BLOOD PH 7.24 (7.35-7.45); ARTERIAL BLOOD PO2 115.1 mmHg (80-100); ARTERIAL BLOOD TOTAL CO2 54.5 mmol/L (21-25)
[2019-02-04 15:10] LABS: ARTERIAL BLOOD FIO2 50%
[2019-02-04 15:15] LABS: ARTERIAL BLOOD PCO2 120.4 mmHg (35-45)
[2019-02-04] MEDS ORDERED: PROPOFOL 1,000 MG/100 ML INFUS..BTL IV ONE (15:43)
[2019-02-04] MEDS ORDERED: PHARMACY COMMUNICATION ORDER MC NR (15:45)
[2019-02-04] MEDS ORDERED: MAG HYDROX/AL HYDROX/SIMETH SUSP 30 ML UDCUP NG PRN (15:56)
[2019-02-04] MEDS ORDERED: LORAZEPAM 0.5 MG TABLET NG PRN (15:56)
[2019-02-04] MEDS ORDERED: PROPOFOL INJ 200 MG/20 ML VIAL IV ONE (16:12)
[2019-02-04] MEDS: PROPOFOL 1,000 MG/100 ML INFUS..BTL IV PRN ×4 (16:20→23:08)
[2019-02-04] MEDS ORDERED: DEXTROSE 5%-WATER 250 ML with NOREPINEPHRINE BITARTRATE 4 MG IV PRN ×2 (17:01)
--- NOTE | 2019-02-04 17:13 | RADIOLOGY REPORT (SQ) ---
EXAM DESCRIPTION: CHEST SINGLE VIEW COMPLETED DATE/TIME: 02/04/2019 4:58 pm REASON FOR STUDY: post intubation COMPARISON: AP chest 02/04/2019, 12/29/2018, 12/27/2018 EXAM PARAMETERS: NUMBER OF VIEWS: One view. TECHNIQUE: Single frontal radiographic view of the chest acquired. RADIATION DOSE: NA LIMITATIONS: None. FINDINGS: Endotracheal tube tip 1.5 cm above the xochilt. Nasogastric tube tip and side port in the stomach. LUNGS AND PLEURA: Few air bronchograms in the left retrocardiac region unchanged. Right lung grossly clear. No gross pleural effusions or pneumothorax MEDIASTINUM AND HILAR STRUCTURES: No masses. Contour normal. HEART AND VASCULAR STRUCTURES: Heart normal in size. Normal vasculature. BONES: Convex leftward thoracic curvature HARDWARE: None in the chest. OTHER: No other significant finding. IMPRESSION: Endotracheal tube tip 1.5 cm above the xochilt. Nasogastric tube tip and side port in th e stomach. Probable chronic scarring in the left retrocardiac region TECHNICAL DOCUMENTATION: JOB ID: [id number] [employer]- All Rights Reserved Reading location - IP/workstation name: [email or web address]
[2019-02-04] MEDS: MIDAZOLAM HCL 50 MG/100 ML RTUINJ IV PRN (17:35)
[2019-02-04 17:44] LABS: APPEARANCE,URINE CLEAR; BILIRUBIN,URINE NEGATIVE (NEGATIVE); COLOR,URINE YELLOW; GLUCOSE, URINE NEGATIVE (NEGATIVE); KETONES,URINE TRACE mg/dL (NEGATIVE); LEUKOCYTE ESTERASE,URINE NEGATIVE (NEGATIVE); NITRITE,URINE NEGATIVE (NEGATIVE); PROTEIN,URINE 30 mg/dL (NEGATIVE); URINE SPECIFIC GRAVITY 1.011; UROBILINOGEN,URINE NEGATIVE mg/dL (<2.0)
[2019-02-04] MEDS: INSULIN LISPRO 100 UNIT/ML 3 ML VIAL SUBCUT SCH ×2 (17:51→21:24)
[2019-02-04 18:30] LABS: ARTERIAL BLOOD BASE EXCESS 18.3 mmol/L; ARTERIAL BLOOD HCO3 44.9 mmol/L (20-24); ARTERIAL BLOOD O2 SATURATION 96.5 % (94-98); ARTERIAL BLOOD PCO2 66.4 mmHg (35-45); ARTERIAL BLOOD PH 7.45 (7.35-7.45); ARTERIAL BLOOD PO2 85.7 mmHg (80-100); ARTERIAL BLOOD TOTAL CO2 46.9 mmol/L (21-25)
[2019-02-04 18:32] LABS: ARTERIAL BLOOD FIO2 40%
--- NOTE | 2019-02-04 18:33 | PDOC H&P ---
History of Present Illness Admission Date/PCP: 02/04/19 13:44 SAW MARTINEZ MD Patient complains of: dyspnea History of Present Illness: ALBERTO AMBRIZ is a 73 year old female with a past medical history significant for diastolic CHF, chronic respiratory failure who uses BiPAP at home, COPD with chronic hypercapnia, obesity hypoventilation syndrome, anemia, atrial fibrillation, pulmonary hypertension, Hypothyroidism, diabetes mellitus, HTN, HLD, and morbid obesity who presented to the emergency department today with a complaint of 2 days of progressively worsening dyspnea and orthopnea. Per ED provider, the patient reported that her BiPAP machine is broken and so she has not been able to use the device for the previous 3 nights. Evaluation in the emergency department revealed hypertension, tachypnea (26), hypoxia (89% on baseline oxygen requirement), chest x-ray that was negative for acute findings, EKG revealing sinus rhythm with RBBB and LVH. Laboratory evaluation reveals mild leukocytosis, baseline anemia, unremarkable chemistry, proBNP elevated to 15,000, indeterminate but stable troponins (at patient's baseline). She was placed on BiPAP and blood gas obtained approximately 2 hours later demonstrated respiratory acidosis with a PCO2 of 120. A follow-up evaluation at that time revealed that the patient had decreased alertness; requ ired sternal rub to wake patient. However, she quickly fell back to sleep prior to being able to answer any questions or follow any directions. Review of previous stay showed that the patient was a full code at that time. Contacted the patient's emergency contact number, Whitney Ambriz who confirmed her full CODE STATUS and requested that we proceed with intubation., Met with family members at bedside shortly later, they report that she is followed by Dr. Allen at [facility] cardiology with recommendation for evaluation for TAVR. Local manager aerospace is Dr. Tellez; requesting that he be brought on board. Past Medical History Cardiac Medical History: Reports: Congestive Heart Failure - Diastolic, Coronary Artery Disease, Myocardial Infarction - cardiac stents x 2, Hyperlipidema, Hypertension, Heart Murmur - aortic stenosis Denies: DVT, Pulmonary Embolism Pulmonary Medical History: Reports: Asthma, Bronchitis, Chronic Obstructive Pulmonary Disease (COPD), Sleep Apnea - Bipap Denies: Pneumonia, Tuberculosis Neurological Medical History: Denies: Seizures Endocrine Medical History: Reports: Diabetes Mellitus Type 2, Hypothyroidism Denies: Diabetes Mellitus Type 1, Hyperthyroidism GI Medical History: Reports: Gastroesophageal Reflux Disease Denies: Cirrhosis, Hepatitis, Ulcerative Colitis Musculoskeltal Medical History: Reports: Arthritis - generalized Psychiatric Medical History: Reports: Depression Traumatic Medical History: Denies: Traumatic Brain Injury Hematology: Reports: Anemia Infectious Medical History: Denies: HIV Past Surgical History Past Surgical History: Reports: Appendectomy, Colostomy - then reversed, Hysterectomy, Orthopedic Surgery - carpal tunnel, polio surgery to left leg Denies: Pacemaker Social History Information Source: [facility] Records Smoking Status: Former Smoker Frequency of Alcohol Use: None Hx Recreational Drug Use: No Drugs: None Hx Prescription Drug Abuse: No - Advance Directive Resuscitation Status: Full Code Surrogate healthcare decision maker:: Patient's sister, Whitney Ambriz Family History Family History: DM, Hyperlipidemia, Hypertension Parental Family History Reviewed: Yes Children Family History Reviewed: Yes Sibling(s) Family History Reviewed.: Yes Medication/Allergy Home Medications: Aspirin [Adult Low Dose Aspirin EC] 81 mg PO DAILY 12/28/18 Atorvastatin Calcium [Lipitor 40 mg Tablet] 40 mg PO QHS 12/28/18 Budesonide/Formoterol Fumarate [Symbicort HFA 160-4.5 mcg Inhaler 6 gm] 2 puff IH Q12 12/28/18 Cetirizine HCl [Zyrtec 10 mg Tablet] 10 mg PO DAILY 12/28/18 Clopidogrel Bisulfate [Plavix 75 mg Tablet] 75 mg PO DAILY 12/28/18 Furosemide [Lasix 40 mg Tablet] 40 mg PO QPM 12/28/18 Glipizide [Glucotrol 10 mg Tablet] 10 mg PO QAM 12/28/18 Ipratropium/Albuterol Sulfate [Duoneb 3 ml Ampul] 3 ml NEB RTQ8HP PRN 12/28/18 Liothyronine Sodium [Cytomel] 10 mcg PO DAILY 12/28/18 Lorazepam [Ativan 0.5 mg Tablet] 0.5 mg PO BIDP PRN 12/28/18 Magnesium Oxide [Mag-Ox 400 mg Tablet] 400 mg PO DAILY 12/28/18 Metformin HCl [Glucophage 500 mg Tablet] 500 mg PO BIDBS 12/28/18 Rabeprazole Sodium [Aciphex] 20 mg PO Q6AM 12/28/18 Amlodipine Besylate [Norvasc 2.5 mg Tablet] 2.5 mg PO DAILY #30 tablet 01/05/19 Losartan Potassium [Cozaar 25 mg Tablet] 25 mg PO Q12 #30 tablet 01/05/19 Levalbuterol HCl [Xopenex Neb 1.25 mg/3 ml Ampul] 1.25 mg IH Q6HP PRN 02/04/19 Potassium Chloride [Klor-Con 10 Meq Capsule ER] 30 meq PO DAILY 02/04/19 Terbinafine HCl [Lamisil 250 mg Tablet] 250 mg PO DAILY 02/04/19 Allergies/Adverse Reactions: hydromorphone HCl [From Dilaudid] Allergy (Severe, Verified 02/04/19 13:48) Respiratory arrest codeine [Codeine] Allergy (Intermediate, Verified 02/04/19 13:48) Hallucinations Physical Exam Vital Signs: Temp Pulse Resp BP Pulse Ox 17 159/71 H 100 02/04/19 18:01 02/04/19 18:01 02/04/19 18:01 Intake & Output 02/03/19 02/04/19 02/05/19 06:59 06:59 06:59 Intake Total 16 Output Total 450 Balance -434 Weight 117.4 kg General appearance: PRESENT: morbidly obese, severe distress - Prior to intubation, well-developed, well-nourished Head exam: PRESENT: atraumatic, normocephalic Eye exam: PRESENT: conjunctiva pale, EOMI, PERRLA. ABSENT: scleral icterus Mouth exam: PRESENT: moist, tongue midline Neck exam: ABSENT: carotid bruit, JVD, lymphadenopathy, thyromegaly Respiratory exam: PRESENT: crackles - Throughout, tachypnea, other - Intubated and mechanically ventilated. ABSENT: rales, rhonchi, wheezes Cardiovascular exam: PRESENT: RRR. ABSENT: diastolic murmur, rubs, systolic murmur Pulses: PRESENT: +1 pedal pulses bilateral Vascular exam: PRESENT: normal capillary refill GI/Abdominal exam: PRESENT: normal bowel sounds, soft. ABSENT: distended, guarding, mass, organolmegaly, rebound, tenderness Rectal exam: PRESENT: deferred Extremities exam: PRESENT: other - Short leg cast to left lower extremity secondary to recent tibia fracture. ABSENT: calf tenderness, clubbing, pedal edema Neurological exam: PRESENT: other - Now sedated for intubation/mechanical ventilation. ABSENT: motor sensory deficit Skin exam: PRESENT: dry, intact, warm, other - Scattered ecchymosis. ABSENT: cyanosis, rash Results Laboratory Results: 02/04/19 11:55 02/04/19 11:55 02/04/19 02/04/19 02/04/19 11:55 11:55 13:40 WBC 12.0 H RBC 3.51 L Hgb 9.2 L Hct 29.3 L MCV 83 MCH 26.1 L MCHC 31.3 L RDW 18.4 H Plt Count 426 Seg Neutrophils % 88.8 H Lymphocytes % 5.7 L Monocytes % 4.4 Eosinophils % 0.4 Basophils % 0.7 Absolute Neutrophils 10.6 H Absolute Lymphocytes 0.7 Absolute Monocytes 0.5 Absolute Eosinophils 0.0 Absolute Basophils 0.1 Carbonic Acid HCO3/H2CO3 Ratio ABG pH ABG pCO2 ABG pO2 ABG HCO3 ABG O2 Saturation ABG Base Excess FiO2 Sodium 136.0 L Potassium 3.8 Chloride 85 L Carbon Dioxide 41 H* Anion Gap 10 BUN 27 H Creatinine 0.54 Est GFR ( Amer) > 60 Est GFR (Non-Af Amer) > 60 Glucose 171 H Calcium 9.3 Urine Color YELLOW Urine Appearance CLEAR Urine pH 7.0 Ur Specific [place] 1.011 Urine Protein 30 H Urine Glucose (UA) NEGATIVE Urine Ketones TRACE H Urine Blood NEGATIVE Urine Nitrite NEGATIVE Ur Leukocyte Esterase NEGATIVE Urine WBC (Auto) 0 02/04/19 14:49 WBC RBC Hgb Hct MCV MCH MCHC RDW Plt Count Seg Neutrophils % Lymphocytes % Monocytes % Eosinophils % Basophils % Absolute Neutrophils Absolute Lymphocytes Absolute Monocytes Absolute Eosinophils Absolute Basophils Carbonic Acid 3.62 H HCO3/H2CO3 Ratio 14:1 ABG pH 7.24 L ABG pCO2 120.4 H* ABG pO2 115.1 H ABG HCO3 50.8 H ABG O2 Saturation 97.0 ABG Base Excess 19.4 FiO2 50% Sodium Potassium Chloride Carbon Dioxide Anion Gap BUN Creatinine Est GFR ( Amer) Est GFR (Non-Af Amer) Glucose Calcium Urine Color Urine Appearance Urine pH Ur Specific [place] Urine Protein Urine Glucose (UA) Urine Ketones Urine Blood Urine Nitrite Ur Leukocyte Esterase Urine WBC (Auto) 02/04/19 02/04/19 11:55 16:45 Troponin I 0.064 0.068 NT-Pro-B Natriuret Pep 26075 H Impressions: Chest X-Ray 02/04/19 11:46 IMPRESSION: Chronic pleural thickening left lateral costophrenic sulcus. Moderate cardiomegaly. No gross acute infiltrates Assessment and Plan - Diagnosis (1) Acute and chronic respiratory failure with hypercapnia Is this a current diagnosis for this admission?: Yes Plan: Secondary to acute on diastolic CHF exacerbation. Confirmed both family members that the patient is a full code. ABG demonstrated respiratory acidosis with CO2 of 120; patient was noted to be lethargic and unable to answer questions or follow commands. She is now intubated and mechanically ventilated; follow-up ABG is pending. She will be provided ventilator and oxygen support as needed. Dr. Sanders is consulted for vent management. As needed nebulizer treatments. Management of CHF exacerbation as below. (2) Acute on chronic diastolic (congestive) heart failure Is this a current diagnosis for this admission?: Yes Plan: Echocardiogram October 2017 demonstrated LVEF65% with evidence of left ventricular diastolic dysfunction. Of note study was of poor quality and so full detailed evaluation is limited. proBNP is elevated to 15,000. Per family members of her manager aerospace at [facility] has recommended work-up for TAVR. Primary manager aerospace is Dr. Tellez; he has been consutled. She is placed on IV furosemide 40 mg twice daily. Strict I&O's. Daily weights. Otherwise her home regiment of aspirin, Plavix, atorvastatin, amlodipine and losartan are continued. (3) Anemia Qualifiers: Anemia type: unspecified type Qualified Code(s): D64.9 - Anemia, unspecified Is this a current diagnosis for this admission?: Yes Plan: Anemia of chronic disease. She is admitted with a hemoglobin of 9.2; this is improved from her baseline of 8.5. No evidence of active bleeding at this time. (4) Hypertension Qualifiers: Hypertension type: essential hypertension Qualified Code(s): I10 - Essential (primary) hypertension Is this a current diagnosis for this admission?: Yes Plan: History of hypertension. Antihypertensives as above. (5) Obesity hypoventilation syndrome Is this a current diagnosis for this admission?: Yes Plan: Currently intubated/mechanically ventilated. She utilizes BiPAP nightly while at home. Reportedly her machine is broken. We will consult discharge planning for assistance. (6) Type 2 diabetes mellitus Qualifiers: Diabetes mellitus computer terminal operator insulin use: without half-way use Is this a current diagnosis for this admission?: Yes Plan: Patient's home regiment of metformin and Glipizide are held while admitted. She is currently intubated; registered dietitian is consulted. Accu-Cheks every 6 hours with Humalog for sliding scale coverage. Hypoglycemia protocol in place. (7) Morbid obesity with BMI of 45.0-49.9, adult Is this a current diagnosis for this admission?: Yes Plan: Registered dietitian is consulted. - Time Time Spent with patient: 35 or more minutes Total Critical Time (Minutes): 40 Medications reviewed and adjusted accordingly: Yes - Inpatient Certification Based on my medical assessment, after consideration of the patient's comorbidities, presenting symptoms, or acuity I expect that the services needed warrant INPATIENT care.: Yes I certify that my determination is in accordance with my understanding of Medicare's requirements for reasonable and necessary INPATIENT services [42 CFR 412.3e].: Yes Medical Necessity: Significant Comorbidiites Make Outpatient Treatment Too Risky, Need Close Monitoring Due to Risk of Patient Decompensation, Need For Continuous Telemetry Monitoring, Risk of Complication if Not Cared For in Hospital
--- NOTE | 2019-02-04 19:36 | EKG REPORT ---
SEVERITY:- ABNORMAL ECG - SINUS RHYTHM ATRIAL PREMATURE COMPLEX RIGHT BUNDLE BRANCH BLOCK LVH WITH SECONDARY REPOLARIZATION ABNORMALITY : Confirmed by: Pebbles Small MD 04-Feb-2019 19:36:03
[2019-02-04] MEDS: FUROSEMIDE INJ/PF 40 MG/4 ML SDV IV SCH (21:09)
[2019-02-04] MEDS: ATORVASTATIN CALCIUM 40 MG TABLET NG SCH (21:09)
[2019-02-04] MEDS: HEPARIN SOD (PORCINE) 5,000 UNIT/ML 1 ML SYRINGE SUBCUT SCH (21:09)
[2019-02-04] MEDS ORDERED: ATORVASTATIN CALCIUM 40 MG TABLET PO SCH (22:00)
[2019-02-04] MEDS ORDERED: LOSARTAN POTASSIUM 25 MG TABLET PO SCH (22:00)
[2019-02-05] MEDS: LOSARTAN POTASSIUM 25 MG TABLET NG SCH ×3 (00:47→21:50)
[2019-02-05] MEDS: PROPOFOL 1,000 MG/100 ML INFUS..BTL IV PRN ×4 (02:18→14:08)
[2019-02-05] MEDS ORDERED: DEXTROSE 5%-WATER 250 ML with NOREPINEPHRINE BITARTRATE 4 MG IV PRN ×2 (02:52)
[2019-02-05 03:23] LABS: HEMATOCRIT 26.6 % (36.0-47.0); HEMOGLOBIN 8.8 g/dL (12.0-15.5); MEAN CORPUSCULAR HEMOGLOBIN 26.9 pg (27.0-33.4); MEAN CORPUSCULAR VOLUME 82 fl (80-97); PLATELET COUNT 362 10^3/uL (150-450); RED BLOOD COUNT 3.26 10^6/uL (3.72-5.28); RED CELL DISTRIBUTION WIDTH 18.3 % (11.5-14.0); WHITE BLOOD COUNT 8.2 10^3/uL (4.0-10.5)
[2019-02-05 03:37] LABS: BLOOD UREA NITROGEN 28 mg/dL (7-20); CALCIUM 9.2 mg/dL (8.4-10.2); CHLORIDE 85 mmol/L (98-107); GLUCOSE 120 mg/dL (75-110); POTASSIUM 3.5 mmol/L (3.6-5.0); SODIUM 138.6 mmol/L (137-145)
[2019-02-05 03:40] LABS: ABSOLUTE LYMPHOCYTES# (MANUAL) 0.9 10^3/uL (0.5-4.7); ABSOLUTE MONOCYTES # (MANUAL) 0.4 10^3/uL (0.1-1.4); BAND NEUTROPHILS % (MANUAL) 3 % (3-5); BASOPHILS % (MANUAL) 0 % (0-2); EOSINOPHILS % (MANUAL) 2 % (0-6); LYMPHOCYTES % (MANUAL) 11 % (13-45); MONOCYTES % (MANUAL) 5 % (3-13); SEGMENTED NEUTROPHILS % (MAN) 79 % (42-78); TOTAL CELLS COUNTED 100
[2019-02-05 03:42] LABS: ANISOCYTOSIS 1+; HYPOCHROMASIA SLIGHT
[2019-02-05 03:43] LABS: PLATELET COMMENT ADEQUATE
[2019-02-05 04:01] LABS: ANION GAP 12 (5-19); CARBON DIOXIDE 42 mmol/L (22-30)
[2019-02-05] MEDS: MIDAZOLAM HCL 50 MG/100 ML RTUINJ IV PRN ×3 (04:40→21:54)
[2019-02-05 04:45] LABS: ARTERIAL BLOOD BASE EXCESS 18.7 mmol/L; ARTERIAL BLOOD FIO2 40%; ARTERIAL BLOOD H2CO3 1.38 mmol/L (1.05-1.35); ARTERIAL BLOOD HCO3 42.4 mmol/L (20-24); ARTERIAL BLOOD O2 SATURATION 97.6 % (94-98); ARTERIAL BLOOD PCO2 45.8 mmHg (35-45); ARTERIAL BLOOD PH 7.58 (7.35-7.45); ARTERIAL BLOOD PO2 86.7 mmHg (80-100); ARTERIAL BLOOD TOTAL CO2 43.8 mmol/L (21-25)
[2019-02-05] MEDS: HEPARIN SOD (PORCINE) 5,000 UNIT/ML 1 ML SYRINGE SUBCUT SCH ×3 (05:39→21:49)
[2019-02-05] MEDS ORDERED: NORMAL SALINE INJ/PF 0.9% 10 ML SDV IV PRN (05:42)
--- NOTE | 2019-02-05 06:36 | RADIOLOGY REPORT (SQ) ---
EXAM DESCRIPTION: XR CHEST 1 VIEW COMPLETED DATE/TME: 02/05/2019 00:00 CLINICAL HISTORY: 73 years Female, central line placement COMPARISON: One day prior. NUMBER OF VIEWS/TECHNIQUE: 1/AP FINDINGS: Moderate to severe extensive mixed airspace and interstitial opacity of the left lung field. Moderate central edema pattern. Adequate appearing endotracheal tube. Adequate appearing enteric tube partially obscured. Adequate appearing right jugular central line. Moderate levo convexity. No pneumothorax. Stable bony thorax. IMPRESSION: Moderate to severe extensive mixed airspace and interstitial opacity of the left lung field. Interval worsening.
--- NOTE | 2019-02-05 07:59 | OPERATIVE REPORT E ---
Operative Report NAME: ALBERTO DIAL : 1945 AGE: 73Y DATE OF SURGERY: 02/05/2019 ROOM: 609 PREOPERATIVE DIAGNOSIS: POOR VEINS FOR INTRAVENOUS ACCESS, PATIENT INTUBATED IN THE INTENSIVE CARE UNIT, NEEDED A LOT OF MEDICATIONS. SHE HAS A LONE IV IN THE LEFT BREAST SITE. OPERATION: PLACEMENT OF RIGHT INTERNAL JUGULAR VEIN TRIPLE LUMEN CATHETER UNDER ULTRASOUND GUIDANCE. SURGEON: ETTA SHARIF M.D. ANESTHESIA: Local. PROCEDURE: The patient was placed in slight Trendelenburg position. The right neck was prepped and draped in the usual sterile fashion. With the use of the ultrasound, the right internal jugular vein was then identified and subsequently local anesthesia infiltrated the skin. The internal jugular vein was then punctured and nonpulsatile dark blood was noted coming out of the needle. A guidewire was immediately placed through the needle toward the superior vena cava. The needle was removed and the insertion site dilated. Next, triple lumen catheter was then inserted to a distance of about 15 cm, and all three ports aspirated blood easily and instilled saline easily. The catheter was then anchored to the skin with 3-0 silk and a Biopatch placed at the insertion site. A transparent sterile dressing was placed over the Biopatch and catheter. Chest x-ray was immediately taken and showed the catheter in good position with no pneumothorax. The patient tolerated the procedure well. DICTATING PHYSICIAN: ETTA SHARIF M.D. [id number] PHY#: [id number] ID: [id number] JOB#: [id number] ACCT: [id number] cc:ETTA SHARIF M.D. >
[2019-02-05] MEDS ORDERED: ACETAMINOPHEN SOLN 325 MG/10.15 ML UDCUP NG PRN (08:07)
[2019-02-05] MEDS: INSULIN LISPRO 100 UNIT/ML 3 ML VIAL SUBCUT SCH ×4 (08:50→21:53)
[2019-02-05] MEDS ORDERED: IPRATROPIUM/ALBUTEROL 0.5-2.5 MG/3 ML AMPUL NEB SCH (09:30)
[2019-02-05] MEDS ORDERED: AMLODIPINE BESYLATE 2.5 MG TABLET NG SCH (10:00)
[2019-02-05] MEDS ORDERED: ASPIRIN 81 MG TABLET, ENT COATED PO SCH (10:00)
[2019-02-05] MEDS ORDERED: AMLODIPINE BESYLATE 2.5 MG TABLET PO SCH (10:00)
[2019-02-05] MEDS ORDERED: DOCUSATE SODIUM 100 MG CAPSULE PO SCH (10:00)
[2019-02-05] MEDS ORDERED: CLOPIDOGREL BISULFATE 75 MG TABLET PO SCH (10:00)
[2019-02-05] MEDS ORDERED: MAGNESIUM OXIDE 400 MG TABLET PO SCH (10:00)
[2019-02-05] MEDS ORDERED: CETIRIZINE 10 MG TABLET PO SCH (10:00)
[2019-02-05] MEDS ORDERED: POTASSIUM CHLORIDE 10 MEQ CAPSULE.ER PO SCH (10:00)
[2019-02-05] MEDS ORDERED: MAGNESIUM OXIDE 400 MG TABLET NG SCH (10:00)
[2019-02-05] MEDS ORDERED: (PENDING PHARMACY ID) (Liothyronine Sodium [Cytomel] 10 MCG) PO SCH (10:30)
[2019-02-05] MEDS: FUROSEMIDE INJ/PF 40 MG/4 ML SDV IV SCH ×2 (11:08→21:49)
[2019-02-05] MEDS: POTASSIUM CHLORIDE 20 MEQ PACKET NG SCH (11:08)
[2019-02-05] MEDS: DOCUSATE SODIUM 100 MG/10 ML UDC NG SCH (11:09)
[2019-02-05] MEDS: CETIRIZINE 10 MG TABLET NG SCH (11:10)
[2019-02-05] MEDS: CLOPIDOGREL BISULFATE 75 MG TABLET NG SCH (11:10)
[2019-02-05] MEDS: FLUTICASONE/VILANTEROL 200-25 MCG/DOSE IH SCH (11:11)
[2019-02-05] MEDS: ASPIRIN 81 MG TABLET, CHEWABLE NG SCH (11:11)
[2019-02-05] MEDS: ACETYLCYSTEINE 10% NEB 400 MG/4 ML VIAL NEB SCH ×3 (11:16→20:24)
[2019-02-05] MEDS: LIOTHYRONINE SODIUM 5 MCG TABLET NG SCH (11:17)
[2019-02-05] MEDS: FAMOTIDINE 20 MG TABLET NG SCH ×2 (11:21→21:51)
[2019-02-05] MEDS: MAGNESIUM OXIDE 400 MG TABLET NG SCH (11:22)
--- NOTE | 2019-02-05 13:56 | RADIOLOGY REPORT (SQ) ---
EXAM DESCRIPTION: CT CHEST WITH COMPLETED DATE/TIME: 02/05/2019 1:40 pm REASON FOR STUDY: RESPIRATORY FAILURE COMPARISON: None. TECHNIQUE: CT scan of the chest performed using helical scanning technique with dynamic intravenous contrast injection. Images reviewed with lung, soft tissue and bone windows. Reconstructed coronal and sagittal MPR and MIP images reviewed. All images stored on PACS. All CT scanners at this facility use dose modulation, iterative reconstruction, and/or weight based d osing when appropriate to reduce radiation dose to as low as reasonably achievable (ALARA). [facility]: Dose Right [facility]: CareDose [facility]: Dose Right [facility]: Teradose 4D [facility]: Feathr CONTRAST TYPE AND DOSE: contrast/concentration: Isovue 350.00 mg/ml; Total Contrast Delivered: 80.0 ml; Total Saline Delivered: 55.0 ml RENAL FUNCTION: Not recorded here. Refer to a electronic technologist's notes. RADIATION DOSE: CT Rad equipment meets quality standard of care and radiation dose reduction techniq ues were employed. CTDIvol: 19.4 mGy. DLP: 677 mGy-cm. . LIMITATIONS: None. FINDINGS: LUNGS AND PLEURA: Left lower lobe bronchiectasis. No acute infiltrate. No mass is apprec iated. HILAR AND MEDIASTINAL STRUCTURES: No identified masses or abnormal nodes. HEART AND VASCULAR STRUCTURES: No aneurysm or dissection. No central pulmonary emboli. No pericardi al effusion. HARDWARE: None in the chest. UPPER ABDOMEN: No significant findings. Limited exam. THYROID AND OTHER SOFT TISSUES: No masses. No adenopathy. BONES: Scoliosis. OTHER: No other significant finding. IMPRESSION: Left lower lobe bronchiectasis. No acute finding. TECHNICAL DOCUMENTATION: JOB ID: [id number] Quality ID # [id number]: Final reports with documentation of one or more dose reduction techniques (e.g., Au tomated exposure control, adjustment of the mA and/or kV according to patient size, use of iterative reconstruction technique) 2010 [employer]- All Rights Reserved Reading location - IP/workstation name: [email or web address]
--- NOTE | 2019-02-05 15:03 | PDOC PROGRESS REPORT ---
Subjective Progress Note for:: 02/05/19 Subjective:: This is a 73 yr old female with a PMH of diastolic CHF, chronic respiratory failure who uses BiPAP at home, COPD with chronic hypercapnia, obesity hypoventilation syndrome, anemia, atrial fibrillation, pulmonary hypertension, hypothyroidism, diabetes mellitus, HTN, HLD, and morbid obesity who presented to the emergency department today with a complaint of 2 days of progressively worsening dyspnea and orthopnea. In the ER, she was noted to be lethargic and ABG showed a PCO2 of 124 hence she was subsequently intubated. No acute event overnight. She is currently sedated and intubated. Saturating well on 60% FiO2. Chest x-ray this morning shows significant worsening with a complete left lung white out. Pulmonology has been consulted as she likely need a bronchoscopy. Reason For Visit: HEART FAILURE, ACUTE RESPIRATORY FAILURE WITH Physical Exam Vital Signs: Temp Pulse Resp BP Pulse Ox 98.4 F 57 L 21 H 151/46 H 98 02/05/19 08:00 02/05/19 08:00 02/05/19 10:00 02/05/19 09:40 02/05/19 10:00 Pulse Oximeter Continuous Start: 02/04/19 14:31 Freq: RTQ4 Status: Hold Protocol: Document 02/04/19 19:52 BOR (Rec: 02/04/19 19:58 BOR [id number]) Pulse Oximetry Assessment Oxygen Saturation (92-100) 100 Oxygen Delivery Method Mechanical Ventilator Equipment Usage Equipment Standby Continuous SpO2 Machine # 1 Additional RT Notes Other Patient not hooked to continous pulse ox at this time. Shw is hooked to continous ED monitor. Intake & Output 02/04/19 02/05/19 02/06/19 06:59 06:59 06:59 Intake Total 357 87 Output Total 2875 100 Balance -2518 -13 Weight 251 lb 8.759 oz General appearance: PRESENT: other - Intubated, sedated Head exam: PRESENT: atraumatic, normocephalic Eye exam: PRESENT: conjunctiva pink, EOMI, PERRLA. ABSENT: scleral icterus Ear exam: PRESENT: normal external ear exam Mouth exam: PRESENT: moist, tongue midline Neck exam: ABSENT: carotid bruit, JVD, lymphadenopathy, thyromegaly Respiratory exam: PRESENT: decreased breath sounds, rhonchi. ABSENT: rales, wheezes Cardiovascular exam: PRESENT: RRR. ABSENT: rubs Pulses: PRESENT: normal dorsalis pedis pul GI/Abdominal exam: PRESENT: normal bowel sounds, soft. ABSENT: distended, guarding, mass, organolmegaly, rebound, tenderness Rectal exam: PRESENT: deferred Neurological exam: PRESENT: other - Intubated, sedated Results Laboratory Results: 02/05/19 03:06 02/05/19 03:06 02/04/19 02/04/19 02/04/19 11:55 11:55 13:40 WBC 12.0 H RBC 3.51 L Hgb 9.2 L Hct 29.3 L MCV 83 MCH 26.1 L MCHC 31.3 L RDW 18.4 H Plt Count 426 Seg Neutrophils % 88.8 H Lymphocytes % 5.7 L Monocytes % 4.4 Eosinophils % 0.4 Basophils % 0.7 Absolute Neutrophils 10.6 H Absolute Lymphocytes 0.7 Absolute Monocytes 0.5 Absolute Eosinophils 0.0 Absolute Basophils 0.1 Carbonic Acid HCO3/H2CO3 Ratio ABG pH ABG pCO2 ABG pO2 ABG HCO3 ABG O2 Saturation ABG Base Excess FiO2 Sodium 136.0 L Potassium 3.8 Chloride 85 L Carbon Dioxide 41 H* Anion Gap 10 BUN 27 H Creatinine 0.54 Est GFR ( Amer) > 60 Est GFR (Non-Af Amer) > 60 Glucose 171 H Calcium 9.3 Urine Color YELLOW Urine Appearance CLEAR Urine pH 7.0 Ur Specific [place] 1.011 Urine Protein 30 H Urine Glucose (UA) NEGATIVE Urine Ketones TRACE H Urine Blood NEGATIVE Urine Nitrite NEGATIVE Ur Leukocyte Esterase NEGATIVE Urine WBC (Auto) 0 02/04/19 02/04/19 02/05/19 14:49 18:10 03:06 WBC 8.2 RBC 3.26 L Hgb 8.8 L Hct 26.6 L MCV 82 MCH 26.9 L MCHC 33.0 RDW 18.3 H Plt Count 362 Seg Neutrophils % Not Reportable Lymphocytes % Not Reportable Monocytes % Not Reportable Eosinophils % Not Reportable Basophils % Not Reportable Absolute Neutrophils Not Reportable Absolute Lymphocytes Not Reportable Absolute Monocytes Not Reportable Absolute Eosinophils Not Reportable Absolute Basophils Not Reportable Carbonic Acid 3.62 H 2.00 H HCO3/H2CO3 Ratio 14:1 22:1 ABG pH 7.24 L 7.45 ABG pCO2 120.4 H* 66.4 H ABG pO2 115.1 H 85.7 ABG HCO3 50.8 H 44.9 H ABG O2 Saturation 97.0 96.5 ABG Base Excess 19.4 18.3 FiO2 50% 40% Sodium Potassium Chloride Carbon Dioxide Anion Gap BUN Creatinine Est GFR ( Amer) Est GFR (Non-Af Amer) Glucose Calcium Urine Color Urine Appearance Urine pH Ur Specific [place] Urine Protein Urine Glucose (UA) Urine Ketones Urine Blood Urine Nitrite Ur Leukocyte Esterase Urine WBC (Auto) 02/05/19 02/05/19 03:06 04:20 WBC RBC Hgb Hct MCV MCH MCHC RDW Plt Count Seg Neutrophils % Lymphocytes % Monocytes % Eosinophils % Basophils % Absolute Neutrophils Absolute Lymphocytes Absolute Monocytes Absolute Eosinophils Absolute Basophils Carbonic Acid 1.38 H HCO3/H2CO3 Ratio 30:1 ABG pH 7.58 H ABG pCO2 45.8 H ABG pO2 86.7 ABG HCO3 42.4 H ABG O2 Saturation 97.6 ABG Base Excess 18.7 FiO2 40% Sodium 138.6 Potassium 3.5 L Chloride 85 L Carbon Dioxide 42 H* Anion Gap 12 BUN 28 H Creatinine 0.56 Est GFR ( Amer) > 60 Est GFR (Non-Af Amer) > 60 Glucose 120 H Calcium 9.2 Urine Color Urine Appearance Urine pH Ur Specific [place] Urine Protein Urine Glucose (UA) Urine Ketones Urine Blood Urine Nitrite Ur Leukocyte Esterase Urine WBC (Auto) 02/04/19 02/04/19 02/04/19 11:55 16:45 20:50 Troponin I 0.064 0.068 0.063 NT-Pro-B Natriuret Pep 96259 H 02/05/19 03:06 Troponin I 0.054 NT-Pro-B Natriuret Pep Impressions: Chest X-Ray 02/05/19 00:00 IMPRESSION: Moderate to severe extensive mixed airspace and interstitial opacity of the left lung field. Interval worsening. Assessment and Plan - Diagnosis (1) Acute on chronic respiratory failure with hypoxia and hypercapnia Is this a current diagnosis for this admission?: Yes Plan: Likely combination of CHF exacerbation, COPD and a background of long-standing [place] and obesity related hypoventilation. Currently intubated. Will wean down FiO2 down to 40%. (2) Diastolic CHF Is this a current diagnosis for this admission?: Yes Plan: Continue IV Lasix. (3) Bronchiectasis Is this a current diagnosis for this admission?: Yes Plan: Chest x-ray this morning shows left lung white out. Will likely need bronchoscopy by pulmonology. Add mucomist. (4) COPD exacerbation Is this a current diagnosis for this admission?: Yes Plan: Add IV steroids. (5) Obesity hypoventilation syndrome Is this a current diagnosis for this admission?: Yes Plan: Currently intubated/mechanically ventilated. - Time Time Spent with patient: 25-34 minutes
[2019-02-05] MEDS: HYDRALAZINE HCL INJ/PF 20 MG/1 ML SDV IV PRN (19:49)
--- NOTE | 2019-02-05 19:56 | ADVANCED CARE ---
- Diagnosis (1) Acute and chronic respiratory failure with hypercapnia Diagnosis Current: Yes (2) Acute on chronic diastolic (congestive) heart failure Diagnosis Current: Yes (3) Anemia Diagnosis Current: Yes (4) Hypertension Diagnosis Current: Yes (5) Obesity hypoventilation syndrome Diagnosis Current: Yes (6) Type 2 diabetes mellitus Diagnosis Current: Yes (7) Morbid obesity with BMI of 45.0-49.9, adult Diagnosis Current: Yes Attendance: Patient's sister/designated POA, Whitney Ambriz, and patient's niece Resuscitation Status: Full Code Discussion: Delayed documentation; goals of care conversation occurred shortly after patient was admitted on the afternoon of 02/04/19. Immediately after assessing the patient, I called Ms. Ambriz's emergency contact, Whitney Ambriz, to discuss the patient's rapid respiratory decline, hypercapnia, and confusion. I mentioned that review of records indicated that the patient had changed her mind multiple times recently with regard to code status. She was informed that I was needing to speak with family members urgently to decide upon intubation. Whitney Ambriz identified herself as the patient's sister and Healthcare Proxy. Ms. Whitney Ambriz advised the patient was a FULL CODE and asked us to proceed with intubation. Shortly afterward, Whitney and her daughter (patient's niece) arrived to the patient's room. They confirmed that the patient remains full code to include CPR. They report that the patient is beginning the work up for TAVR and that the goal is for the patient to become well enough to complete the full evaluation; "So long as there is a chance that they can fix the valve that is causing the problem, we want you to do everything you can." Care Planning Goals: FULL CODE Time Spent: 30 min
[2019-02-05] MEDS: METHYLPREDNISOLONE INJ 40 MG/1 ML SDV IV SCH (21:49)
[2019-02-05] MEDS: ATORVASTATIN CALCIUM 40 MG TABLET NG SCH (21:51)
[2019-02-06] MEDS: LEVALBUTEROL HCL NEB 1.25 MG/3 ML AMPUL NEB PRN ×2 (02:29→08:23)
[2019-02-06] MEDS: ACETYLCYSTEINE 10% NEB 400 MG/4 ML VIAL NEB SCH ×4 (02:29→20:04)
[2019-02-06] MEDS: MIDAZOLAM HCL 50 MG/100 ML RTUINJ IV PRN ×4 (03:24→21:22)
[2019-02-06 04:40] LABS: HEMATOCRIT 28.4 % (36.0-47.0); HEMOGLOBIN 9.1 g/dL (12.0-15.5); MEAN CORPUSCULAR HEMOGLOBIN 26.6 pg (27.0-33.4); MEAN CORPUSCULAR HGB CONC 32.1 g/dL (32.0-36.0); MEAN CORPUSCULAR VOLUME 83 fl (80-97); PLATELET COUNT 422 10^3/uL (150-450); RED BLOOD COUNT 3.43 10^6/uL (3.72-5.28); RED CELL DISTRIBUTION WIDTH 18.7 % (11.5-14.0); WHITE BLOOD COUNT 11.1 10^3/uL (4.0-10.5)
[2019-02-06 05:12] LABS: BLOOD UREA NITROGEN 24 mg/dL (7-20); CHLORIDE 87 mmol/L (98-107); GLUCOSE 160 mg/dL (75-110); PHOSPHORUS 3.8 mg/dL (2.5-4.5); POTASSIUM 3.5 mmol/L (3.6-5.0); SODIUM 139.5 mmol/L (137-145)
[2019-02-06] MEDS: LIOTHYRONINE SODIUM 5 MCG TABLET NG SCH (05:14)
[2019-02-06 05:15] LABS: ARTERIAL BLOOD BASE EXCESS 16.7 mmol/L; ARTERIAL BLOOD FIO2 30%; ARTERIAL BLOOD H2CO3 1.62 mmol/L (1.05-1.35); ARTERIAL BLOOD HCO3 41.8 mmol/L (20-24); ARTERIAL BLOOD O2 SATURATION 96.4 % (94-98); ARTERIAL BLOOD PCO2 53.7 mmHg (35-45); ARTERIAL BLOOD PH 7.51 (7.35-7.45); ARTERIAL BLOOD PO2 79.2 mmHg (80-100); ARTERIAL BLOOD TOTAL CO2 43.4 mmol/L (21-25)
[2019-02-06 05:18] LABS: ABSOLUTE LYMPHOCYTES# (MANUAL) 0.4 10^3/uL (0.5-4.7); ABSOLUTE MONOCYTES # (MANUAL) 0.2 10^3/uL (0.1-1.4); BASOPHILS % (MANUAL) 1 % (0-2); EOSINOPHILS % (MANUAL) 0 % (0-6); LYMPHOCYTES % (MANUAL) 4 % (13-45); MONOCYTES % (MANUAL) 2 % (3-13); SEGMENTED NEUTROPHILS % (MAN) 93 % (42-78); TOTAL CELLS COUNTED 100
[2019-02-06 05:21] LABS: ANISOCYTOSIS 2+; PLATELET COMMENT ADEQUATE
[2019-02-06 05:22] LABS: ANION GAP 10 (5-19); CARBON DIOXIDE 43 mmol/L (22-30)
[2019-02-06] MEDS ORDERED: NORMAL SALINE 1000 ML 1,000 ML IV ONE (06:00)
[2019-02-06] MEDS: HEPARIN SOD (PORCINE) 5,000 UNIT/ML 1 ML SYRINGE SUBCUT SCH ×3 (06:06→21:43)
--- NOTE | 2019-02-06 07:13 | RADIOLOGY REPORT (SQ) ---
EXAM DESCRIPTION: XR CHEST 1 VIEW COMPLETED DATE/TME: 02/06/2019 06:00 CLINICAL HISTORY: 73 years Female, acute/chronic resp failure COMPARISON: One day prior. NUMBER OF VIEWS/TECHNIQUE: 1/AP FINDINGS: Moderate mixed airspace and interstitial opacities. Tip of an endotracheal tube is 1.2 cm from the xochilt; recommend 3.8 cm retraction. Adequate appearing enteric tube partially obscured. Normal cardiac silhouette. Scoliotic curvature. Osteoarthritis. Adequate appearing right jugular central line. No pneumothorax. Stable bony thorax. IMPRESSION: 1. Moderate mixed airspace and interstitial opacities. Interval improvement. 2. Tip of an endotracheal tube is 1.2 cm from the xochilt; recommend 3.8 cm retraction.
[2019-02-06] MEDS: INSULIN LISPRO 100 UNIT/ML 3 ML VIAL SUBCUT SCH ×4 (07:56→23:57)
[2019-02-06] MEDS: METHYLPREDNISOLONE INJ 40 MG/1 ML SDV IV SCH ×2 (09:22→21:42)
[2019-02-06] MEDS: FUROSEMIDE INJ/PF 40 MG/4 ML SDV IV SCH (09:22)
[2019-02-06] MEDS: POTASSIUM CHLORIDE 20 MEQ PACKET NG SCH (09:23)
[2019-02-06] MEDS: ASPIRIN 81 MG TABLET, CHEWABLE NG SCH (09:23)
[2019-02-06] MEDS: CLOPIDOGREL BISULFATE 75 MG TABLET NG SCH (09:24)
[2019-02-06] MEDS: AMLODIPINE BESYLATE 5 MG TABLET NG SCH (09:24)
[2019-02-06] MEDS: CETIRIZINE 10 MG TABLET NG SCH (09:24)
[2019-02-06] MEDS: FAMOTIDINE 20 MG TABLET NG SCH ×2 (09:24→21:42)
[2019-02-06] MEDS: DOCUSATE SODIUM 100 MG/10 ML UDC NG SCH (09:25)
[2019-02-06] MEDS: FLUTICASONE/VILANTEROL 200-25 MCG/DOSE IH SCH (09:25)
[2019-02-06] MEDS: LOSARTAN POTASSIUM 25 MG TABLET NG SCH ×2 (09:26→21:42)
[2019-02-06] MEDS ORDERED: AMLODIPINE BESYLATE 2.5 MG TABLET NG SCH (10:00)
[2019-02-06] MEDS: PROPOFOL 1,000 MG/100 ML INFUS..BTL IV PRN ×2 (10:19→21:44)
[2019-02-06] MEDS: MAGNESIUM OXIDE 400 MG TABLET NG SCH (12:15)
--- NOTE | 2019-02-06 12:51 | PDOC PROGRESS REPORT ---
Subjective Progress Note for:: 02/06/19 Subjective:: This is a 73 yr old female with a PMH of diastolic CHF, chronic respiratory failure who uses BiPAP at home, COPD with chronic hypercapnia, obesity hypoventilation syndrome, anemia, atrial fibrillation, pulmonary hypertension, hypothyroidism, diabetes mellitus, HTN, HLD, and morbid obesity who presented to the emergency department today with a complaint of 2 days of progressively worsening dyspnea and orthopnea. In the ER, she was noted to be lethargic and ABG showed a PCO2 of 124 hence she was subsequently intubated. 02/05: She is currently sedated and intubated. Saturating well on 60% FiO2. Chest x-ray this morning shows significant worsening with a complete left lung white out. Pulmonology has been consulted as she likely need a bronchoscopy. 02/06: No acute event overnight. She is not on vasopressors. She remains sedated and is intubated on minimal vent settings. She had bronchoscopy by pulmonology yesterday. Repeat chest x-ray today shows improvement in aeration of the left lung field. Reason For Visit: HEART FAILURE, ACUTE RESPIRATORY FAILURE WITH Physical Exam Vital Signs: Temp Pulse Resp BP Pulse Ox 97.3 F 67 18 142/50 H 97 02/06/19 05:48 02/06/19 10:44 02/06/19 10:30 02/06/19 10:30 02/06/19 11:25 Pulse Oximeter Continuous Start: 02/04/19 14:31 Freq: RTQ4 Status: Hold Protocol: Document 02/04/19 19:52 BOR (Rec: 02/04/19 19:58 BOR [email or web address]) Pulse Oximetry Assessment Oxygen Saturation (92-100) 100 Oxygen Delivery Method Mechanical Ventilator Equipment Usage Equipment Standby Continuous SpO2 Machine # 1 Additional RT Notes Other Patient not hooked to continous pulse ox at this time. Shw is hooked to continous ED monitor. Intake & Output 02/05/19 02/06/19 02/07/19 06:59 06:59 06:59 Intake Total 357 565 3 Output Total 6276 2960 Balance -9553 -3575 3 Weight 251 lb 8.759 oz 241 lb 6.499 oz General appearance: PRESENT: other - Intubated, sedated Head exam: PRESENT: atraumatic, normocephalic Eye exam: PRESENT: conjunctiva pink, EOMI, PERRLA. ABSENT: scleral icterus Ear exam: PRESENT: normal external ear exam Mouth exam: PRESENT: moist, tongue midline Neck exam: ABSENT: carotid bruit, JVD, lymphadenopathy, thyromegaly Respiratory exam: PRESENT: decreased breath sounds, rhonchi. ABSENT: rales, wheezes Cardiovascular exam: PRESENT: RRR. ABSENT: diastolic murmur, rubs, systolic murmur Pulses: PRESENT: normal dorsalis pedis pul GI/Abdominal exam: PRESENT: normal bowel sounds, soft. ABSENT: distended, guarding, mass, organolmegaly, rebound, tenderness Rectal exam: PRESENT: deferred Neurological exam: PRESENT: other - Intubated, sedated Results Laboratory Results: 02/06/19 04:15 02/06/19 04:15 02/06/19 02/06/19 02/06/19 04:15 04:15 04:15 WBC 11.1 H RBC 3.43 L Hgb 9.1 L Hct 28.4 L MCV 83 MCH 26.6 L MCHC 32.1 RDW 18.7 H Plt Count 422 Seg Neutrophils % Not Reportable Lymphocytes % Not Reportable Monocytes % Not Reportable Eosinophils % Not Reportable Basophils % Not Reportable Absolute Neutrophils Not Reportable Absolute Lymphocytes Not Reportable Absolute Monocytes Not Reportable Absolute Eosinophils Not Reportable Absolute Basophils Not Reportable Carbonic Acid Cancelled HCO3/H2CO3 Ratio Cancelled ABG pH Cancelled ABG pCO2 Cancelled ABG pO2 Cancelled ABG HCO3 Cancelled ABG O2 Saturation Cancelled ABG Base Excess Cancelled FiO2 Cancelled Sodium 139.5 Potassium 3.5 L Chloride 87 L Carbon Dioxide 43 H* Anion Gap 10 BUN 24 H Creatinine 0.80 Est GFR ( Amer) > 60 Est GFR (Non-Af Amer) > 60 Glucose 160 H Calcium 9.0 Phosphorus 3.8 Magnesium 1.6 02/06/19 05:00 WBC RBC Hgb Hct MCV MCH MCHC RDW Plt Count Seg Neutrophils % Lymphocytes % Monocytes % Eosinophils % Basophils % Absolute Neutrophils Absolute Lymphocytes Absolute Monocytes Absolute Eosinophils Absolute Basophils Carbonic Acid 1.62 H HCO3/H2CO3 Ratio 25:1 ABG pH 7.51 H ABG pCO2 53.7 H ABG pO2 79.2 L ABG HCO3 41.8 H ABG O2 Saturation 96.4 ABG Base Excess 16.7 FiO2 30% Sodium Potassium Chloride Carbon Dioxide Anion Gap BUN Creatinine Est GFR ( Amer) Est GFR (Non-Af Amer) Glucose Calcium Phosphorus Magnesium 02/04/19 13:40 Kim Catheter Urine Culture - Final NO GROWTH 2 DAYS 02/04/19 02/04/19 02/04/19 11:55 16:45 20:50 Troponin I 0.064 0.068 0.063 NT-Pro-B Natriuret Pep 28057 H 02/05/19 02/06/19 03:06 04:15 Troponin I 0.054 NT-Pro-B Natriuret Pep 76460 H Impressions: Chest CT 02/05/19 00:00 IMPRESSION: Left lower lobe bronchiectasis. No acute finding. Chest X-Ray 02/06/19 06:00 IMPRESSION: 1. Moderate mixed airspace and interstitial opacities. Interval improvement. 2. Tip of an endotracheal tube is 1.2 cm from the xochilt; recommend 3.8 cm retraction. Assessment and Plan - Diagnosis (1) Acute on chronic respiratory failure with hypoxia and hypercapnia Is this a current diagnosis for this admission?: Yes Plan: Likely combination of CHF exacerbation, COPD and a background of long-standing [place] and obesity related hypoventilation. Currently intubated. Will wean down FiO2 down to 40%. 02/06: She remains sedated and is intubated on minimal vent settings, FiO2 down to 30%. She had bronchoscopy by pulmonology yesterday. Repeat chest x-ray today shows improvement in aeration of the left lung field. (2) Diastolic CHF Is this a current diagnosis for this admission?: Yes Plan: 02/05: Continue IV Lasix 40 mg q12. 02/06: DC IV Lasix. Resume oral home Lasix. (3) Bronchiectasis Is this a current diagnosis for this admission?: Yes Plan: 02/05: Chest x-ray this morning shows left lung white out. Will likely need bronchoscopy by pulmonology. Add mucomist. 02/06: She had bronchoscopy by pulmonology yesterday. Repeat chest x-ray today shows improvement in aeration of the left lung field. (4) COPD exacerbation Is this a current diagnosis for this admission?: Yes Plan: Continue IV steroids. (5) Obesity hypoventilation syndrome Is this a current diagnosis for this admission?: Yes Plan: Currently intubated. - Time Time Spent with patient: 25-34 minutes
[2019-02-06] MEDS: FUROSEMIDE 40 MG TABLET PO SCH (17:46)
[2019-02-06] MEDS: HYDRALAZINE HCL INJ/PF 20 MG/1 ML SDV IV PRN (19:52)
[2019-02-06] MEDS: IPRATROPIUM/ALBUTEROL 0.5-2.5 MG/3 ML AMPUL NEB PRN (20:04)
[2019-02-06] MEDS: ATORVASTATIN CALCIUM 40 MG TABLET NG SCH (21:42)
[2019-02-07] MEDS: MIDAZOLAM HCL 50 MG/100 ML RTUINJ IV PRN ×5 (01:21→22:57)
[2019-02-07] MEDS: IPRATROPIUM/ALBUTEROL 0.5-2.5 MG/3 ML AMPUL NEB PRN ×3 (02:11→19:46)
[2019-02-07] MEDS: ACETYLCYSTEINE 10% NEB 400 MG/4 ML VIAL NEB SCH ×4 (02:12→19:46)
[2019-02-07 04:58] LABS: ARTERIAL BLOOD H2CO3 1.18 mmol/L (1.05-1.35); ARTERIAL BLOOD HCO3 34.2 mmol/L (20-24); ARTERIAL BLOOD O2 SATURATION 94.2 % (94-98); ARTERIAL BLOOD PCO2 39.2 mmHg (35-45); ARTERIAL BLOOD PH 7.56 (7.35-7.45); ARTERIAL BLOOD TOTAL CO2 35.4 mmol/L (21-25)
[2019-02-07 05:00] LABS: ARTERIAL BLOOD FIO2 30%
[2019-02-07] MEDS: LIOTHYRONINE SODIUM 5 MCG TABLET NG SCH (05:03)
[2019-02-07 05:04] LABS: HEMATOCRIT 25.9 % (36.0-47.0); HEMOGLOBIN 8.4 g/dL (12.0-15.5); MEAN CORPUSCULAR HEMOGLOBIN 26.8 pg (27.0-33.4); MEAN CORPUSCULAR HGB CONC 32.3 g/dL (32.0-36.0); MEAN CORPUSCULAR VOLUME 83 fl (80-97); PLATELET COUNT 386 10^3/uL (150-450); RED BLOOD COUNT 3.12 10^6/uL (3.72-5.28); RED CELL DISTRIBUTION WIDTH 19.1 % (11.5-14.0); WHITE BLOOD COUNT 9.8 10^3/uL (4.0-10.5)
[2019-02-07 05:25] LABS: ALANINE AMINOTRANSFERASE 22 U/L (9-52); ALBUMIN 3.1 g/dL (3.5-5.0); ALKALINE PHOSPHATASE 59 U/L (38-126); ANION GAP 14 (5-19); ASPARTATE AMINO TRANSFERASE 13 U/L (14-36); BILIRUBIN,DIRECT 0.8 mg/dL (0.0-0.4); BILIRUBIN,TOTAL 1.2 mg/dL (0.2-1.3); BLOOD UREA NITROGEN 24 mg/dL (7-20); CALCIUM 8.2 mg/dL (8.4-10.2); CARBON DIOXIDE 35 mmol/L (22-30); CHLORIDE 92 mmol/L (98-107); GLUCOSE 190 mg/dL (75-110); PHOSPHORUS 4.4 mg/dL (2.5-4.5); SODIUM 140.5 mmol/L (137-145); TOTAL PROTEIN 5.6 g/dL (6.3-8.2)
[2019-02-07 05:30] LABS: ABSOLUTE LYMPHOCYTES# (MANUAL) 0.4 10^3/uL (0.5-4.7); ABSOLUTE MONOCYTES # (MANUAL) 0.2 10^3/uL (0.1-1.4); ANISOCYTOSIS 1+; BAND NEUTROPHILS % (MANUAL) 3 % (3-5); BASOPHILS % (MANUAL) 0 % (0-2); EOSINOPHILS % (MANUAL) 0 % (0-6); LYMPHOCYTES % (MANUAL) 4 % (13-45); MONOCYTES % (MANUAL) 2 % (3-13); PLATELET COMMENT ADEQUATE; POLYCHROMASIA 1+; SEGMENTED NEUTROPHILS % (MAN) 91 % (42-78); TOTAL CELLS COUNTED 100
[2019-02-07] MEDS: HEPARIN SOD (PORCINE) 5,000 UNIT/ML 1 ML SYRINGE SUBCUT SCH ×3 (06:05→21:10)
[2019-02-07] MEDS: POTASSIUM CHLORIDE 20 MEQ/50 ML RTU IV SCH ×3 (06:05→09:31)
[2019-02-07] MEDS: PROPOFOL 1,000 MG/100 ML INFUS..BTL IV PRN ×3 (06:06→19:00)
--- NOTE | 2019-02-07 07:59 | RADIOLOGY REPORT (SQ) ---
EXAM DESCRIPTION: XR CHEST 1 VIEW COMPLETED DATE/TME: 02/07/2019 06:00 CLINICAL HISTORY: 73 years Female, Resp.Failure COMPARISON: One day prior. NUMBER OF VIEWS/TECHNIQUE: 1/AP FINDINGS: Tip of an endotracheal tube is 0.9 cm from the xochilt oriented toward the right main bronchus. Recommend 4 cm retraction of the endotracheal tube.Moderate mixed airspace and interstitial opacities. Adequate appearing enteric tube partially obscured. Normal cardiac silhouette size. Moderate levo convexity.Adequate appearing right jugular central line. Clear lungs of adequate volume, and normal cardiac silhouette. No pneumothorax. Stable bony thorax. IMPRESSION: Tip of an endotracheal tube is 0.9 cm from the xochilt oriented toward the right main bronchus. Recommend 4 cm retraction of the endotracheal tube. Else, stable.
[2019-02-07] MEDS: INSULIN LISPRO 100 UNIT/ML 3 ML VIAL SUBCUT SCH ×4 (08:00→21:23)
[2019-02-07] MEDS: LEVALBUTEROL HCL NEB 1.25 MG/3 ML AMPUL NEB PRN (08:17)
--- NOTE | 2019-02-07 08:56 | RADIOLOGY REPORT (SQ) ---
EXAM DESCRIPTION: CHEST SINGLE VIEW COMPLETED DATE/TIME: 02/07/2019 8:48 am REASON FOR STUDY: Readjustment of ett COMPARISON: Uppercase [id number] hours EXAM PARAMETERS: NUMBER OF VIEWS: One view TECHNIQUE: Single frontal radiograph of the chest. RADIATION DOSE: N/A LIMITATIONS: None. FINDINGS: TEMPORARY SUPPORT DEVICES:ETT in expected location. NG tube courses below the yohannes-diaphr agm in to the stomach. Central venous access catheter tip is in expected location. LUNGS AND PLEURA: Parenchymal opacity at the left base. Left effusion. No masses. No pneumothorax. MEDIASTINUM AND HILAR STRUCTURES: No masses. Contour normal. HEART AND VASCULAR STRUCTURES: Heart normal in size. normal vascularity. Aorta normal for age. BONES: No acute findings. OTHER: No other significant finding. IMPRESSION: Left basilar opacity and effusion. SUPPORT DEVICE(S) IN EXPECTED LOCATIONS. TECHNICAL DOCUMENTATION: JOB ID: [id number] [employer]- All Rights Reserved Reading location - IP/workstation name: [email or web address]
[2019-02-07] MEDS: ASPIRIN 81 MG TABLET, CHEWABLE NG SCH (09:30)
[2019-02-07] MEDS: CETIRIZINE 10 MG TABLET NG SCH (09:30)
[2019-02-07] MEDS: AMLODIPINE BESYLATE 5 MG TABLET NG SCH (09:30)
[2019-02-07] MEDS: FAMOTIDINE 20 MG TABLET NG SCH ×2 (09:30→21:11)
[2019-02-07] MEDS: CLOPIDOGREL BISULFATE 75 MG TABLET NG SCH (09:31)
[2019-02-07] MEDS: LOSARTAN POTASSIUM 25 MG TABLET NG SCH ×2 (09:31→21:10)
[2019-02-07] MEDS: METHYLPREDNISOLONE INJ 40 MG/1 ML SDV IV SCH ×2 (09:31→21:10)
[2019-02-07] MEDS: DOCUSATE SODIUM 100 MG/10 ML UDC NG SCH (09:31)
[2019-02-07] MEDS: POTASSIUM CHLORIDE 20 MEQ PACKET NG SCH (09:31)
[2019-02-07] MEDS: FLUTICASONE/VILANTEROL 200-25 MCG/DOSE IH SCH (09:32)
[2019-02-07] MEDS: MAGNESIUM OXIDE 400 MG TABLET NG SCH (11:34)
--- NOTE | 2019-02-07 16:22 | PDOC PROGRESS REPORT ---
Subjective Progress Note for:: 02/07/19 Subjective:: This is a 73 yr old female with a PMH of diastolic CHF, chronic respiratory failure who uses BiPAP at home, COPD with chronic hypercapnia, obesity hypoventilation syndrome, anemia, atrial fibrillation, pulmonary hypertension, hypothyroidism, diabetes mellitus, HTN, HLD, and morbid obesity who presented to the emergency department today with a complaint of 2 days of progressively worsening dyspnea and orthopnea. In the ER, she was noted to be lethargic and ABG showed a PCO2 of 124 hence she was subsequently intubated. 02/05: She is currently sedated and intubated. Saturating well on 60% FiO2. Chest x-ray this morning shows significant worsening with a complete left lung white out. Pulmonology has been consulted as she likely need a bronchoscopy. 02/06: She is not on vasopressors. She remains sedated and is intubated on minimal vent settings. She had bronchoscopy by pulmonology yesterday. Repeat chest x-ray today shows improvement in aeration of the left lung field. 02/07: No acute event overnight. She remains intubated and sedated. FiO2 down to 30%. She became tachypneic and hypoxic in the high 80s during the weaning trial this morning. No significant secretions from the ET tube. Reason For Visit: HEART FAILURE, ACUTE RESPIRATORY FAILURE WITH Physical Exam Vital Signs: Temp Pulse Resp BP Pulse Ox 97.5 F 65 18 144/48 H 99 02/07/19 06:00 02/07/19 08:32 02/07/19 10:00 02/07/19 09:16 02/07/19 10:00 Pulse Oximeter Continuous Start: 02/04/19 14:31 Freq: RTQ4 Status: Hold Protocol: Document 02/04/19 19:52 BOR (Rec: 02/04/19 19:58 BOR [email or web address]) Pulse Oximetry Assessment Oxygen Saturation (92-100) 100 Oxygen Delivery Method Mechanical Ventilator Equipment Usage Equipment Standby Continuous SpO2 Machine # 1 Additional RT Notes Other Patient not hooked to continous pulse ox at this time. Shw is hooked to continous ED monitor. Intake & Output 02/06/19 02/07/19 02/08/19 06:59 06:59 06:59 Intake Total 565 533 122 Output Total 1960 780 135 Balance -2395 -247 -13 Weight 241 lb 6.499 oz 243 lb 9.773 oz General appearance: PRESENT: other - Intubated, sedated Eye exam: PRESENT: conjunctiva pink, EOMI, PERRLA. ABSENT: scleral icterus Ear exam: PRESENT: normal external ear exam Mouth exam: PRESENT: moist, tongue midline Neck exam: ABSENT: carotid bruit, JVD, lymphadenopathy, thyromegaly Respiratory exam: PRESENT: rales, rhonchi. ABSENT: wheezes Cardiovascular exam: PRESENT: RRR. ABSENT: diastolic murmur, rubs, systolic murmur Pulses: PRESENT: normal dorsalis pedis pul GI/Abdominal exam: PRESENT: normal bowel sounds, soft. ABSENT: distended, guarding, mass, organolmegaly, rebound, tenderness Rectal exam: PRESENT: deferred Neurological exam: PRESENT: other - Intubated, sedated Results Laboratory Results: 02/07/19 04:48 02/07/19 04:48 02/06/19 02/07/19 02/07/19 04:15 04:48 04:48 WBC 9.8 RBC 3.12 L Hgb 8.4 L Hct 25.9 L MCV 83 MCH 26.8 L MCHC 32.3 RDW 19.1 H Plt Count 386 Seg Neutrophils % Not Reportable Lymphocytes % Not Reportable Monocytes % Not Reportable Eosinophils % Not Reportable Basophils % Not Reportable Absolute Neutrophils Not Reportable Absolute Lymphocytes Not Reportable Absolute Monocytes Not Reportable Absolute Eosinophils Not Reportable Absolute Basophils Not Reportable Carbonic Acid 1.18 HCO3/H2CO3 Ratio 28:1 ABG pH 7.56 H ABG pCO2 39.2 ABG pO2 61.0 L ABG HCO3 34.2 H ABG O2 Saturation 94.2 ABG Base Excess 11.0 FiO2 30% Sodium Potassium Chloride Carbon Dioxide Anion Gap BUN Creatinine Est GFR ( Amer) Est GFR (Non-Af Amer) Glucose Calcium Phosphorus Magnesium Total Bilirubin AST ALT Alkaline Phosphatase Total Protein Albumin Triglycerides 271 H 02/07/19 04:48 WBC RBC Hgb Hct MCV MCH MCHC RDW Plt Count Seg Neutrophils % Lymphocytes % Monocytes % Eosinophils % Basophils % Absolute Neutrophils Absolute Lymphocytes Absolute Monocytes Absolute Eosinophils Absolute Basophils Carbonic Acid HCO3/H2CO3 Ratio ABG pH ABG pCO2 ABG pO2 ABG HCO3 ABG O2 Saturation ABG Base Excess FiO2 Sodium 140.5 Potassium 3.0 L* Chloride 92 L Carbon Dioxide 35 H Anion Gap 14 BUN 24 H Creatinine 0.65 Est GFR ( Amer) > 60 Est GFR (Non-Af Amer) > 60 Glucose 190 H Calcium 8.2 L Phosphorus 4.4 Magnesium 1.6 Total Bilirubin 1.2 AST 13 L ALT 22 Alkaline Phosphatase 59 Total Protein 5.6 L Albumin 3.1 L Triglycerides 02/04/19 13:40 Kim Catheter Urine Culture - Final NO GROWTH 2 DAYS 02/04/19 02/04/19 02/04/19 11:55 16:45 20:50 Troponin I 0.064 0.068 0.063 NT-Pro-B Natriuret Pep 83167 H 02/05/19 02/06/19 03:06 04:15 Troponin I 0.054 NT-Pro-B Natriuret Pep 26403 H Impressions: Chest CT 02/05/19 00:00 IMPRESSION: Left lower lobe bronchiectasis. No acute finding. Chest X-Ray 02/07/19 08:22 IMPRESSION: Left basilar opacity and effusion. SUPPORT DEVICE(S) IN EXPECTED LOCATIONS. Assessment and Plan - Diagnosis (1) Acute on chronic respiratory failure with hypoxia and hypercapnia Is this a current diagnosis for this admission?: Yes Plan: Likely combination of CHF exacerbation, COPD and a background of long-standing [place] and obesity related hypoventilation. Currently intubated. Will wean down FiO2 down to 40%. 02/06: She remains sedated and is intubated on minimal vent settings, FiO2 down to 30%. She had bronchoscopy by pulmonology yesterday. Repeat chest x-ray today shows improvement in aeration of the left lung field. 02/07: She remains sedated and intubated. FiO2 down to 30%. She became tachypneic and hypoxic in the high 80s during the weaning trial this morning. No significant secretions from the ET tube. (2) Diastolic CHF Is this a current diagnosis for this admission?: Yes Plan: 02/05: Continue IV Lasix 40 mg q12. 02/06: DC IV Lasix. Resume oral home Lasix. (3) Bronchiectasis Is this a current diagnosis for this admission?: Yes Plan: 02/05: Chest x-ray this morning shows left lung white out. Will likely need bronchoscopy by pulmonology. Add mucomist. 02/06: She had bronchoscopy by pulmonology yesterday. Repeat chest x-ray today shows improvement in aeration of the left lung field. 02/07: ET tube readjusted. Repeat chest x-ray continues to show improvement of aeration in the left lung field. Culture of bronchial washings are negative. (4) COPD exacerbation Is this a current diagnosis for this admission?: Yes Plan: Continue IV steroids. (5) Hypokalemia Is this a current diagnosis for this admission?: Yes Plan: Replace with IV potassium. Repeat serum potassium later today. (6) Obesity hypoventilation syndrome Is this a current diagnosis for this admission?: Yes Plan: Currently intubated. - Time Time Spent with patient: 25-34 minutes
[2019-02-07] MEDS: FUROSEMIDE 40 MG TABLET PO SCH (17:03)
[2019-02-07] MEDS: ATORVASTATIN CALCIUM 40 MG TABLET NG SCH (21:11)
[2019-02-08] MEDS: IPRATROPIUM/ALBUTEROL 0.5-2.5 MG/3 ML AMPUL NEB PRN ×2 (02:09→13:44)
[2019-02-08] MEDS: PROPOFOL 1,000 MG/100 ML INFUS..BTL IV PRN ×2 (02:41→14:35)
[2019-02-08 04:36] LABS: ARTERIAL BLOOD BASE EXCESS 9.2 mmol/L; ARTERIAL BLOOD FIO2 30%; ARTERIAL BLOOD H2CO3 1.26 mmol/L (1.05-1.35); ARTERIAL BLOOD O2 SATURATION 94.8 % (94-98); ARTERIAL BLOOD PCO2 41.8 mmHg (35-45); ARTERIAL BLOOD PH 7.52 (7.35-7.45); ARTERIAL BLOOD PO2 66.7 mmHg (80-100); ARTERIAL BLOOD TOTAL CO2 34.3 mmol/L (21-25)
[2019-02-08 04:39] LABS: HEMATOCRIT 26.8 % (36.0-47.0); HEMOGLOBIN 8.6 g/dL (12.0-15.5); MEAN CORPUSCULAR HEMOGLOBIN 26.6 pg (27.0-33.4); MEAN CORPUSCULAR VOLUME 83 fl (80-97); PLATELET COUNT 391 10^3/uL (150-450); RED BLOOD COUNT 3.23 10^6/uL (3.72-5.28); RED CELL DISTRIBUTION WIDTH 19.2 % (11.5-14.0); WHITE BLOOD COUNT 7.9 10^3/uL (4.0-10.5)
[2019-02-08 04:53] LABS: ANION GAP 9 (5-19); BLOOD UREA NITROGEN 25 mg/dL (7-20); CALCIUM 8.8 mg/dL (8.4-10.2); CARBON DIOXIDE 34 mmol/L (22-30); CHLORIDE 97 mmol/L (98-107); GLUCOSE 198 mg/dL (75-110); POTASSIUM 3.7 mmol/L (3.6-5.0); SODIUM 139.6 mmol/L (137-145)
[2019-02-08 05:00] LABS: PREALBUMIN 17.1 mg/dL (17.6-36.0)
[2019-02-08 05:17] LABS: ABSOLUTE LYMPHOCYTES# (MANUAL) 0.4 10^3/uL (0.5-4.7); ABSOLUTE MONOCYTES # (MANUAL) 0.2 10^3/uL (0.1-1.4); BAND NEUTROPHILS % (MANUAL) 2 % (3-5); BASOPHILS % (MANUAL) 0 % (0-2); EOSINOPHILS % (MANUAL) 0 % (0-6); HYPOCHROMASIA 1+; LYMPHOCYTES % (MANUAL) 5 % (13-45); MONOCYTES % (MANUAL) 2 % (3-13); PLATELET COMMENT ADEQUATE; SEGMENTED NEUTROPHILS % (MAN) 91 % (42-78); TOTAL CELLS COUNTED 100
[2019-02-08] MEDS: HEPARIN SOD (PORCINE) 5,000 UNIT/ML 1 ML SYRINGE SUBCUT SCH ×2 (05:19→14:34)
[2019-02-08] MEDS: LIOTHYRONINE SODIUM 5 MCG TABLET NG SCH (05:19)
[2019-02-08] MEDS: ACETYLCYSTEINE 10% NEB 400 MG/4 ML VIAL NEB SCH ×3 (07:14→13:44)
[2019-02-08] MEDS: LEVALBUTEROL HCL NEB 1.25 MG/3 ML AMPUL NEB PRN (08:03)
[2019-02-08] MEDS: INSULIN LISPRO 100 UNIT/ML 3 ML VIAL SUBCUT SCH ×2 (08:38→11:49)
[2019-02-08] MEDS ORDERED: LORAZEPAM 0.5 MG TABLET PO PRN (08:41)
--- NOTE | 2019-02-08 08:42 | RADIOLOGY REPORT (SQ) ---
EXAM DESCRIPTION: CHEST SINGLE VIEW COMPLETED DATE/TIME: 02/08/2019 6:47 am REASON FOR STUDY: resp failure COMPARISON: 02/07/2019 NUMBER OF VIEWS: One view. TECHNIQUE: Single frontal radiographic image of the chest acquired. LIMITATIONS: Positioning. FINDINGS: LUNGS AND PLEURA: Persistent consolidation in the left lower lobe not significantly change d. No pneumothorax. MEDIASTINUM AND HEART: Stable heart size and mediastinal structures. SUPPORT DEVICES: Appropriate location without change. BONY STRUCTURES: No acute findings. HARDWARE: None. OTHER: No other significant finding. IMPRESSION: No significant change. No pneumothorax. Reading location - IP/workstation name: [email or web address]
[2019-02-08] MEDS: MIDAZOLAM HCL 50 MG/100 ML RTUINJ IV PRN ×2 (09:46→14:36)
--- NOTE | 2019-02-08 09:50 | RADIOLOGY REPORT (SQ) ---
EXAM DESCRIPTION: ANKLE LEFT AP/LATERAL COMPLETED DATE/TIME: 02/08/2019 9:32 am REASON FOR STUDY: left ankle bruising COMPARISON: None. NUMBER OF VIEWS: Three views. TECHNIQUE: AP, lateral, and oblique radiographic images acquired of the left ankle. LIMITATIONS: Cast material obscures bony detail. FINDINGS: MINERALIZATION: Normal. BONES: Slightly displaced comminuted oblique fracture of the distal tibia. Hardware in the medial ma lleolus. On the lateral image there is deformity of the midfoot and calcaneus which is difficult to visualize due to positioning and overlying cast material. JOINTS: No effusions. SOFT TISSUES: No soft tissue swelling. No foreign body. OTHER: No other significant finding. IMPRESSION: SLIGHTLY DISPLACED COMMINUTED OBLIQUE FRACTURE OF THE DISTAL TIBIA. DEFORMITY OF THE TN DFOOT AND CALCANEUS DIFFICULT TO VISUALIZE DUE TO POSITIONING AND OVERLYING CAST MATERIAL. TECHNICAL DOCUMENTATION: JOB ID: [id number] [employer]- All Rights Reserved Reading location - IP/workstation name: [email or web address]
[2019-02-08] MEDS ORDERED: LEVOFLOXACIN 500 MG/D5W RTU 500 MG/100 ML RTUPB IV SCH (10:00)
[2019-02-08] MEDS: METHYLPREDNISOLONE INJ 40 MG/1 ML SDV IV SCH (10:24)
[2019-02-08] MEDS: DOCUSATE SODIUM 100 MG/10 ML UDC NG SCH (10:24)
[2019-02-08] MEDS: POTASSIUM CHLORIDE 20 MEQ PACKET NG SCH (10:24)
[2019-02-08] MEDS: CETIRIZINE 10 MG TABLET NG SCH (10:25)
[2019-02-08] MEDS: AMLODIPINE BESYLATE 5 MG TABLET NG SCH (10:26)
[2019-02-08] MEDS: FAMOTIDINE 20 MG TABLET NG SCH (10:26)
[2019-02-08] MEDS: CLOPIDOGREL BISULFATE 75 MG TABLET NG SCH (10:26)
[2019-02-08] MEDS: LOSARTAN POTASSIUM 25 MG TABLET NG SCH (10:26)
[2019-02-08] MEDS: ASPIRIN 81 MG TABLET, CHEWABLE NG SCH (10:26)
[2019-02-08] MEDS: FLUTICASONE/VILANTEROL 200-25 MCG/DOSE IH SCH (11:15)
--- NOTE | 2019-02-08 12:36 | RADIOLOGY REPORT (SQ) ---
EXAM DESCRIPTION: VENOUS UNILATERAL LOWER COMPLETED DATE/TIME: 02/08/2019 12:25 pm REASON FOR STUDY: r/o DVT, left LE COMPARISON: 06/11/2017 TECHNIQUE: Dynamic and static schmidt scale and color images acquired of the left leg venous system. Se lected spectral images acquired with additional compression and augmentation maneuvers. The contralat eral common femoral vein and saphenofemoral junction were also imaged. Images stored on PACS. LIMITATIONS: None. FINDINGS: COMMON FEMORAL: Normal phasicity, compression and augmentation. No visualized echogenic ma terial on schmidt scale. No defects on color images. FEMORAL: Normal compression and augmentation. No visualized echogenic material on schmidt scale. No defe cts on color images. POPLITEAL: Normal compression, augmentation. No visualized echogenic material on schmidt scale. No defec ts on color images. CALF VESSELS: Normal compression, augmentation. No visualized echogenic material on schmidt scale. No de fects on color images. GSV and SSV: Normal compression, augmentation. No visualized echogenic material on schmidt scale. No def ects on color images. ANY DEEP VENOUS INSUFFICIENCY: Not evaluated. ANY EVIDENCE OF POPLITEAL CYST: No. OTHER: No other significant finding. CONTRALATERAL COMMON FEMORAL VEIN AND SAPHENOFEMORAL JUNCTION: Normal phasicity, compression and augmentation. No visualized echogenic material on schmidt scale. No de fects on color images. IMPRESSION: NO EVIDENCE DVT OR SVT IN THE LEFT LEG. TECHNICAL DOCUMENTATION: JOB ID: [id number] [employer]- All Rights Reserved Reading location - IP/workstation name: [email or web address]
[2019-02-08] MEDS: HYDRALAZINE HCL INJ/PF 20 MG/1 ML SDV IV PRN (13:04)
[2019-02-08] MEDS: MAGNESIUM OXIDE 400 MG TABLET NG SCH (13:04)
--- NOTE | 2019-02-08 13:40 | PDOC TRANSFER SUMMARY ---
General Admission Date/PCP: 02/04/19 13:44 SAW MARTINEZ MD Resuscitation Status: Full Code - Transfer Diagnosis (1) Acute on chronic respiratory failure with hypoxia and hypercapnia Is this a current diagnosis for this admission?: Yes (2) Diastolic CHF Is this a current diagnosis for this admission?: Yes (3) Bronchiectasis Is this a current diagnosis for this admission?: Yes (4) Hypokalemia Is this a current diagnosis for this admission?: Yes (5) Obesity hypoventilation syndrome Is this a current diagnosis for this admission?: Yes - Transfer Medications Home Medications: Aspirin [Adult Low Dose Aspirin EC] 81 mg PO DAILY 12/28/18 Atorvastatin Calcium [Lipitor 40 mg Tablet] 40 mg PO QHS 12/28/18 Budesonide/Formoterol Fumarate [Symbicort HFA 160-4.5 mcg Inhaler 6 gm] 2 puff IH Q12 12/28/18 Cetirizine HCl [Zyrtec 10 mg Tablet] 10 mg PO DAILY 12/28/18 Clopidogrel Bisulfate [Plavix 75 mg Tablet] 75 mg PO DAILY 12/28/18 Furosemide [Lasix 40 mg Tablet] 40 mg PO QPM 12/28/18 Glipizide [Glucotrol 10 mg Tablet] 10 mg PO QAM 12/28/18 Ipratropium/Albuterol Sulfate [Duoneb 3 ml Ampul] 3 ml NEB RTQ8HP PRN 12/28/18 Liothyronine Sodium [Cytomel] 10 mcg PO DAILY 12/28/18 Lorazepam [Ativan 0.5 mg Tablet] 0.5 mg PO BIDP PRN 12/28/18 Magnesium Oxide [Mag-Ox 400 mg Tablet] 400 mg PO DAILY 12/28/18 Metformin HCl [Glucophage 500 mg Tablet] 500 mg PO BIDBS 12/28/18 Rabeprazole Sodium [Aciphex] 20 mg PO Q6AM 12/28/18 Levalbuterol HCl [Xopenex Neb 1.25 mg/3 ml Ampul] 1.25 mg IH Q6HP PRN 02/04/19 Potassium Chloride [Klor-Con 10 Meq Capsule ER] 30 meq PO DAILY 02/04/19 Terbinafine HCl [Lamisil 250 mg Tablet] 250 mg PO DAILY 02/04/19 Transfer Medications: Current Medications Acetaminophen (Tylenol Soln 325 Mg/10.15 Ml Udcup) 650 mg NG Q4HP PRN PRN Reason: pain or temp greater than 101F Stop: 03/07/19 08:06 Acetylcysteine (Mucomist 10% Neb 400 Mg/4 Ml Vial) 400 mg NEB RTQ6 ASHU Stop: 03/07/19 10:14 Last Admin: 02/08/19 08:03 Dose: 400 mg Documented by: Al Hydrox/Mg Hydrox/Simethicone (Maalox Plus Susp 30 Udcup) 30 ml NG Q4HP PRN PRN Reason: HEARTBURN Stop: 03/06/19 15:55 Albuterol/Ipratropium (Duoneb 3 Ml Ampul) 3 ml NEB RTQ8HP PRN PRN Reason: SHORTNESS OF BREATH Stop: 03/08/19 13:25 Last Admin: 02/08/19 02:09 Dose: 3 ml Documented by: Amlodipine Besylate (Norvasc 5 Mg Tablet) 5 mg NG DAILY ASHU Stop: 03/08/19 09:59 Last Admin: 02/08/19 10:26 Dose: 5 mg Documented by: Aspirin (Aspirin 81 Mg Chewable Tablet) 81 mg NG DAILY ASHU Stop: 03/07/19 09:59 Last Admin: 02/08/19 10:26 Dose: 81 mg Documented by: Atorvastatin Calcium (Lipitor 40 Mg Tablet) 40 mg NG QHS ASHU Stop: 03/06/19 21:59 Last Admin: 02/07/19 21:11 Dose: 40 mg Documented by: Cetirizine HCl (Zyrtec 10 Mg Tablet) 10 mg NG DAILY ASHU Stop: 03/07/19 09:59 Last Admin: 02/08/19 10:25 Dose: 10 mg Documented by: Clopidogrel Bisulfate (Plavix 75 Mg Tablet) 75 mg NG DAILY ASHU Stop: 03/07/19 09:59 Last Admin: 02/08/19 10:26 Dose: 75 mg Documented by: Dextrose (Dextrose Inj 50% Syringe (25 Gm/50 Ml)) 25 gm IV PRN PRN; Protocol PRN Reason: PER PROTOCOL Stop: 03/06/19 14:38 Dextrose (Dextrose Inj 50% Syringe (25 Gm/50 Ml)) 12.5 gm IV PRN PRN; Protocol PRN Reason: FOR BG 50-69 IN ALERT PATIENT Stop: 03/06/19 14:38 Docusate Sodium (Colace Udc 100 Mg/10 Ml Oral Soln) 100 mg NG DAILY [facility] Stop: 03/07/19 09:59 Last Admin: 02/08/19 10:24 Dose: 100 mg Documented by: Famotidine (Pepcid 20 Mg Tablet) 20 mg NG Q12 ASHU Stop: 03/07/19 10:29 Last Admin: 02/08/19 10:26 Dose: 20 mg Documented by: Fluticasone/Vilanterol (Breo 200-25 Mcg Ellipta 14 Dose/Dpi) 1 inh IH DAILY [facility] Stop: 03/07/19 09:59 Last Admin: 02/08/19 11:15 Dose: Not Given Documented by: Furosemide (Lasix 40 Mg Tablet) 40 mg PO QPM ASHU Stop: 03/08/19 17:59 Last Admin: 02/07/19 17:03 Dose: 40 mg Documented by: Glucagon (Glucagen Inj 1 Mg Vial) 1 mg IM PRN PRN; Protocol PRN Reason: Evaluate for BG < 70 Stop: 03/06/19 14:38 Glucose (Glutose 40% Gel 15 Gm Tube) 15 gm PO PRN PRN; Protocol PRN Reason: FOR BG 50-69 IN ALERT PATIENT Stop: 03/06/19 14:38 Glucose (Glutose 40% Gel 15 Gm Tube) 30 gm PO PRN PRN; Protocol PRN Reason: FOR BG < 50 IN ALERT PATIENT Stop: 03/06/19 14:38 Heparin Sodium (Porcine) (Heparin Inj 5,000 Units/Ml 1 Ml Syringe) 5,000 unit S UBCUT Q8 ASHU Stop: 03/06/19 21:59 Last Admin: 02/08/19 05:19 Dose: 5,000 unit Documented by: Heparin Sodium (Porcine) (Heparin Flush 10 Unit/Ml 5 Ml Disp.Syrg) 30 unit IV Q8 [facility] Stop: 03/07/19 05:59 Last Admin: 02/08/19 05:19 Dose: 30 unit Documented by: Heparin Sodium (Porcine) (Heparin Flush 10 Unit/Ml 5 Ml Disp.Syrg) 30 unit IV .AFTER EACH USE PRN PRN Reason: AFTER EACH INTERMITTENT USE Stop: 03/07/19 05:41 Hydralazine HCl (Apresoline Inj/Pf 20 Mg/1 Ml Sdv) 10 mg IV Q6HP PRN PRN Reason: for SBP>170 or DBP>100 Stop: 03/07/19 18:25 Last Admin: 02/08/19 13:04 Dose: 10 mg Documented by: Midazolam HCl (Versed Rtu 50 Mg/100 Ml Premix Bag) 50 mg in 100 mls @ 0 mls/hr IV CONTINUOUS PRN; Protocol PRN Reason: THIS MED IS NOT "PRN" Stop: 02/11/19 16:59 Last Titration: 02/08/19 13:12 Dose: 8 mg/hr, 16 mls/hr Documented by: Propofol (Diprivan Rtu 1000 Mg/100 Ml Inf.Bottle) 1,000 mg in 100 mls @ 3.423 mls/hr IV CONTINUOUS PRN; Protocol PRN Reason: THIS MED IS NOT "PRN" Stop: 03/07/19 02:51 Last Titration: 02/08/19 13:06 Dose: Infused Documented by: Levofloxacin/Dextrose (Levaquin Rtu 500mg/D5w 100 Ml Premix) 500 mg in 100 mls @ 100 mls/hr IV DAILY [facility] Stop: 02/15/19 09:59 Last Admin: 02/08/19 10:24 Dose: 100 mls/hr, 100 mls/hr Documented by: Insulin Human Lispro (Humalog Insulin 100 Unit/1 Ml 3 Ml Vial) 0 - 12 unit SUBCUT [facility]; Protocol Stop: 03/06/19 15:59 Last Admin: 02/08/19 11:49 Dose: Not Given Documented by: Levalbuterol HCl (Xopenex Neb 1.25 Mg/3 Ml Ampul) 1.25 mg NEB Q6HP PRN PRN Reason: SHORTNESS OF BREATH Stop: 03/06/19 14:36 Last Admin: 02/08/19 08:03 Dose: 1.25 mg Documented by: Liothyronine Sodium (Cytomel 5 Mcg Tablet) 10 mcg NG Q6AM ASHU Stop: 03/07/19 11:29 Last Admin: 02/08/19 05:19 Dose: 10 mcg Documented by: Lorazepam (Ativan 0.5 Mg Tablet) 0.5 mg PO BIDP PRN PRN Reason: ANXIETY/AGITATION Stop: 02/15/19 08:40 Losartan Potassium (Cozaar 25 Mg Tablet) 25 mg NG Q12 ASHU Stop: 03/06/19 21:59 Last Admin: 02/08/19 10:26 Dose: 25 mg Documented by: Magnesium Oxide (Mag-Ox 400 Mg Tablet) 400 mg NG NOON [facility] Stop: 03/07/19 11:59 Last Admin: 02/08/19 13:04 Dose: 400 mg Documented by: Methylprednisolone Sodium Succinate (Solu-Medrol Inj/Pf 40 Mg/1 Ml Sdv) 40 mg IV Q12 ASHU Stop: 03/07/19 21:59 Last Admin: 02/08/19 10:24 Dose: 40 mg Documented by: Pharmacy Profile Note (Medication Communication Order) 1 each MC .NOTICE NR Stop: 03/06/19 15:44 Potassium Chloride (Potassium Chloride 20 Meq Packet) 30 meq NG DAILY [facility] Stop: 03/07/19 09:59 Last Admin: 02/08/19 10:24 Dose: 30 meq Documented by: Sodium Chloride (Saline Flush 2.5 Ml Monoject Prefil Syrin) 2.5 ml IV Q8 [facility] Stop: 03/06/19 21:59 Last Admin: 02/08/19 05:20 Dose: Not Given Documented by: Sodium Chloride (Nacl 0.9% Inj/Pf 10 Ml Sdv) 10 ml IV .AFTER EACH USE PRN PRN Reason: AFTER EACH INTERMITTENT USE Stop: 03/07/19 05:41 - Allergies Allergies/Adverse Reactions: hydromorphone HCl [From Dilaudid] Allergy (Severe, Verified 02/04/19 13:48) Respiratory arrest codeine [Codeine] Allergy (Intermediate, Verified 02/04/19 13:48) Hallucinations Hospital Course Hospital Course: This is a 73 yr old female with a PMH of diastolic CHF, chronic respiratory failure who uses BiPAP at home, aortic stenosis-being worked up for TAVR, COPD with chronic hypercapnia, obesity hypoventilation syndrome, anemia, atrial fibrillation, pulmonary hypertension, hypothyroidism, diabetes mellitus, recent left ankle fracture, HTN, HLD, and morbid obesity who presented to the emergency department today with a complaint of 2 days of progressively worsening dyspnea and orthopnea. In the ER, she was noted to be lethargic and she was noted to be hypoxic and hypercapnic and subsequently intubated. BNP was also elevated at 15,300. She was admitted for CHF vs COPD exacerbation. She was started on IV Lasix. She did develop a left lung white out on day 2 possible from a mucous plug. She had a bronch and this promptly improved. Her local travel specialist, Dr. Tellez strongly recommends transfer to [facility] where he is being closely followed by CT surgery , Dr. Luis Allen for possible TAVR. Discussed with Dr. Luis Allen over the phone who did say he recently saw patient last week and is working her up for possible TAVR. He says they plan to do a cardiac CT and possible cath when she is transferred to [facility]. Discussed case with [facility] lead janitor, Dr. Riggs who has accepted the transfer. Physical Exam Vital Signs: Temp Pulse Resp BP Pulse Ox 98.8 F 61 14 168/62 H 100 02/08/19 12:00 02/08/19 12:00 02/08/19 12:00 02/08/19 12:00 02/08/19 12:00 Pulse Oximeter Continuous Start: 02/04/19 14:31 Freq: RTQ4 Status: Hold Protocol: Document 02/04/19 19:52 BOR (Rec: 02/04/19 19:58 BOR [id number]) Pulse Oximetry Assessment Oxygen Saturation (92-100) 100 Oxygen Delivery Method Mechanical Ventilator Equipment Usage Equipment Standby Continuous SpO2 Machine # 1 Additional RT Notes Other Patient not hooked to continous pulse ox at this time. Shw is hooked to continous ED monitor. Intake & Output 02/07/19 02/08/19 02/09/19 06:59 06:59 06:59 Intake Total 533 666 161 Output Total 780 1270 400 Balance -247 -604 -239 Weight 243 lb 9.773 oz 240 lb 1.334 oz General appearance: PRESENT: other - intubated Head exam: PRESENT: atraumatic, normocephalic Eye exam: PRESENT: conjunctiva pink, EOMI, PERRLA. ABSENT: scleral icterus Ear exam: PRESENT: normal external ear exam Mouth exam: PRESENT: moist, tongue midline Neck exam: ABSENT: carotid bruit, JVD, lymphadenopathy, thyromegaly Respiratory exam: PRESENT: rhonchi. ABSENT: rales, wheezes Cardiovascular exam: PRESENT: RRR. ABSENT: diastolic murmur, rubs, systolic murmur Pulses: PRESENT: normal dorsalis pedis pul GI/Abdominal exam: PRESENT: normal bowel sounds, soft. ABSENT: distended, guarding, mass, organolmegaly, rebound, tenderness Rectal exam: PRESENT: deferred - [id number] Neurological exam: PRESENT: other - intubated, sedated Results Laboratory Results: 02/08/19 04:20 02/08/19 04:20 02/07/19 02/08/19 02/08/19 14:32 04:20 04:20 WBC RBC Hgb Hct MCV MCH MCHC RDW Plt Count Seg Neutrophils % Lymphocytes % Monocytes % Eosinophils % Basophils % Absolute Neutrophils Absolute Lymphocytes Absolute Monocytes Absolute Eosinophils Absolute Basophils Carbonic Acid 1.26 HCO3/H2CO3 Ratio 26:1 ABG pH 7.52 H ABG pCO2 41.8 ABG pO2 66.7 L ABG HCO3 33.0 H ABG O2 Saturation 94.8 ABG Base Excess 9.2 FiO2 30% Sodium 139.6 Potassium 4.1 D 3.7 Chloride 97 L Carbon Dioxide 34 H Anion Gap 9 BUN 25 H Creatinine 0.71 Est GFR ( Amer) > 60 Est GFR (Non-Af Amer) > 60 Glucose 198 H Calcium 8.8 Magnesium 2.0 Prealbumin 17.1 L 02/08/19 04:20 WBC 7.9 RBC 3.23 L Hgb 8.6 L Hct 26.8 L MCV 83 MCH 26.6 L MCHC 32.0 RDW 19.2 H Plt Count 391 Seg Neutrophils % Not Reportable Lymphocytes % Not Reportable Monocytes % Not Reportable Eosinophils % Not Reportable Basophils % Not Reportable Absolute Neutrophils Not Reportable Absolute Lymphocytes Not Reportable Absolute Monocytes Not Reportable Absolute Eosinophils Not Reportable Absolute Basophils Not Reportable Carbonic Acid HCO3/H2CO3 Ratio ABG pH ABG pCO2 ABG pO2 ABG HCO3 ABG O2 Saturation ABG Base Excess FiO2 Sodium Potassium Chloride Carbon Dioxide Anion Gap BUN Creatinine Est GFR ( Amer) Est GFR (Non-Af Amer) Glucose Calcium Magnesium Prealbumin 02/05/19 10:22 Bronchial Washings Gram Stain - Final 02/05/19 10:22 Bronchial Washings Bronchial Washings Culture - Final NORMAL OLGA 02/04/19 02/04/19 02/04/19 11:55 16:45 20:50 Troponin I 0.064 0.068 0.063 NT-Pro-B Natriuret Pep 22530 H 02/05/19 02/06/19 03:06 04:15 Troponin I 0.054 NT-Pro-B Natriuret Pep 22567 H Impressions: Chest CT 02/05/19 00:00 IMPRESSION: Left lower lobe bronchiectasis. No acute finding. Chest X-Ray 02/08/19 06:00 IMPRESSION: No significant change. No pneumothorax. Ankle X-Ray 02/08/19 08:35 IMPRESSION: SLIGHTLY DISPLACED COMMINUTED OBLIQUE FRACTURE OF THE DISTAL TIBIA. DEFORMITY OF THE MIDFOOT AND CALCANEUS DIFFICULT TO VISUALIZE DUE TO POSITIONING AND OVERLYING CAST MATERIAL. Venous Doppler Study 02/08/19 08:36 IMPRESSION: NO EVIDENCE DVT OR SVT IN THE LEFT LEG.
[2019-02-08 15:37] VITALS: BP 143/54
== END 2019-02-08 15:30 | disposition short-term general hospital (02) | DRG 208 ==
LOC: ER 11:33 → EH 13:44 → ICU 23:35
PROVIDERS: ADMIT Internal Medicine; ATTEND Internal Medicine
PROC: 5A1945Z Respiratory Ventilation, 24-96 Consecutive Hours (ICD-10-PCS; principal; 2019-02-04)
PROC: 0BH17EZ Insertion of Endotracheal Airway into Trachea, Via Natural or Artificial Opening (ICD-10-PCS; 2019-02-04)
PROC: 5A09357 Assistance with Respiratory Ventilation, Less than 24 Consecutive Hours, Continuous Positive Airway Pressure (ICD-10-PCS; 2019-02-04)
PROC: 02HV33Z Insertion of Infusion Device into Superior Vena Cava, Percutaneous Approach (ICD-10-PCS; 2019-02-05)
PROC: B548ZZA Ultrasonography of Superior Vena Cava, Guidance (ICD-10-PCS; 2019-02-05)
DX: J96.01 Acute respiratory failure with hypoxia (principal); I50.33 Acute on chronic diastolic (congestive) heart failure; E66.2 Morbid (severe) obesity with alveolar hypoventilation; Z68.42 Body mass index [BMI] 45.0-49.9, adult; J44.1 Chronic obstructive pulmonary disease with (acute) exacerbation; J96.02 Acute respiratory failure with hypercapnia; E87.6 Hypokalemia; J47.9 Bronchiectasis, uncomplicated; D64.9 Anemia, unspecified; E03.9 Hypothyroidism, unspecified; E11.9 Type 2 diabetes mellitus without complications; I11.0 Hypertensive heart disease with heart failure; E78.5 Hyperlipidemia, unspecified; I25.10 Atherosclerotic heart disease of native coronary artery without angina pectoris; K21.9 Gastro-esophageal reflux disease without esophagitis; F32.9 Major depressive disorder, single episode, unspecified; I87.2 Venous insufficiency (chronic) (peripheral); E78.00 Pure hypercholesterolemia, unspecified; Z78.1 Physical restraint status; Z79.899 Other long term (current) drug therapy; Z79.84 Long term (current) use of oral hypoglycemic drugs; Z88.6 Allergy status to analgesic agent; Z91.19 Patient's noncompliance with other medical treatment and regimen; Z95.5 Presence of coronary angioplasty implant and graft; Z87.891 Personal history of nicotine dependence; Z79.82 Long term (current) use of aspirin; Z83.3 Family history of diabetes mellitus; Z82.49 Family history of ischemic heart disease and other diseases of the circulatory system
CPT/HCPCS: 31500; 36415; 36600; 71045; 71260; 80048; 80053; 81001; 82803; 82962; 83735; 83880; 84100; 84132; 84134; 84478; 84484; 85025; 87070; 87086; 87088; 87186; 87205; 93005; 93010; 93971; 94002; 94003; 94640; 94660; 96374; 96375; 99291; A4649; C1751; J0330; J0360; J1642; J1644; J1815; J1940; J1956; J2250; J2704; J2920; J3480; J3490; J7030; J7620